=== PATIENT | female | born 1965 ===

== ENCOUNTER 2020-08-03 10:38 | Outpatient (REF) | payer OTHER, SELFPAY ==
--- NOTE | 2020-08-03 | US_ITS ---
EXAMINATION: US THYROID CLINICAL INFORMATION: Goiter. COMPARISON: Chest CT and cervical spine CT March 2020. TECHNIQUE: Linear transducer grayscale and color Doppler examination with attention to the region of the thyroid. FINDINGS: SIZE: Measurements of the solitary left thyroid lobe and nodules are given in sagittal, anteroposterior and transverse dimensions respectively. Right Thyroid Lobe: Surgically absent. Left Thyroid Lobe: 4.4 x 1.7 x 1.6 cm, volume 6.4 mL. Parenchyma: The gland echotexture is heterogeneous. Thyroid vascularity is normal. Isthmus: 0.4 cm in maximum AP dimension. RIGHT THYROID LOBE: No nodules. ISTHMUS: No nodules. LEFT THYROID LOBE: No nodules. NODES: No lymphadenopathy is seen in the tissue surrounding the thyroid gland. IMPRESSION: Surgically absent right lobe. Normal left lobe. No nodules seen..
== END 2020-08-03 10:39 | disposition home or self-care (01) ==
LOC: HO.HMGCX 10:38
PROVIDERS: PCP Physician Assistant; Visit Provider Nurse Practitioner Gerontology
DX: E04.9 Nontoxic goiter, unspecified (principal)
CPT/HCPCS: 76536

== ENCOUNTER → 2020-08-19 12:11 | Outpatient (BNVA) | payer OTHER, SELFPAY | PROVIDERS: PCP Physician Assistant; Visit Provider Internal Medicine Gastroenterology | DX: R10.13 Epigastric pain (principal); K22.2 Esophageal obstruction; A49.8 Other bacterial infections of unspecified site | CPT/HCPCS: 99213 ==

== ENCOUNTER 2020-08-29 10:27 | Outpatient (REF) | payer OTHER, SELFPAY ==
[2020-08-29 11:58] LABS: MANUAL DIFF FLAG NO
[2020-08-29 12:11] LABS: Basophils Absolute Auto 0.1 X10*3/uL (0.0-0.2); Basophils Percent Auto 1.1 % (0-2); Eosinophils Absolute Auto 0.2 X10*3/uL (0.0-0.4); Eosinophils Percent Auto 4.1 % (0-4); Hematocrit 40.8 % (37-47); Hemoglobin 13.3 g/dl (12.0-16.0); Imm Gran Abs Auto 0.02 X10*3/uL (0.00-0.03); Imm Gran Pct Auto 0.4 % (0.0-0.4); Lymphocytes Absolute Auto 2.1 X10*3/uL (1.2-4.9); Lymphocytes Percent Auto 38.7 % (20-40); Mean Corpuscular HGB Conc 32.6 g/dl (31.0-35.0); Mean Corpuscular Hemoglobin 28.1 pg (27.0-33.0); Mean Corpuscular Volume 86.3 fL (80-98); Mean Platelet Volume 9.3 fL (9.4-12.3); Monocytes Absolute Auto 0.4 X10*3/uL (0.1-1.2); Monocytes Percent Auto 6.6 % (2-11); Neutrophils Absolute Auto 2.7 X10*3/uL (2.0-8.3); Neutrophils Percent Auto 49.1 % (45-73); Platelet Count 290 X10*3/uL (160-400); Red Blood Count 4.73 X10*6/uL (4.20-5.50); Red Cell Distribution Width 11.9 % (11.0-16.0); White Blood Count 5.4 X10*3/uL (4.8-10.8)
[2020-08-29 12:28] LABS: Estimated Average Glucose 131 mg/dL; Hemoglobin A1c % 6.2 %
[2020-08-29 12:43] LABS: Alanine Aminotransferase 36 U/L (0-31); Albumin Level 4.9 g/dL (3.5-5.0); Alkaline Phosphatase 46 U/L (39-117); Anion Gap 15 (12-20); Aspartate Amino Transferase 19 U/L (5-31); Bilirubin Total 0.5 mg/dL (0.0-1.0); Blood Urea Nitrogen 15 mg/dL (9-16); Calcium 9.1 mg/dL (8.4-10.2); Carbon Dioxide 27 mmol/L (22-29); Chloride 103 mmol/L (96-108); Cholesterol 166 mg/dL; Estimated Glomerular Filt Rate > 60; Glucose Fasting 97 mg/dL (60-99); HDL Cholesterol 59 mg/dL; LDL Cholesterol Calculated 74 mg/dl; Potassium 4.3 mmol/l (3.3-5.1); Sodium 141 mmol/L (135-145); Total Protein 7.6 g/dL (6.5-8.0); Triglycerides 165 mg/dL
[2020-08-29 12:53] LABS: HIV AB/AG Nonreactive (Nonreactive); HIV Num 1 0.09 S/CO (0.00-0.99)
[2020-08-29 12:58] LABS: Syphilis Screen Nonreactive (Nonreactive)
[2020-08-29 13:17] LABS: TSH reflex Free T4 0.89 mIU/mL (0.32-4.0)
[2020-09-01 18:17] LABS: Chlamydia Pneumoniae IgA <1:16 titer (<1:16); Chlamydia Pneumoniae IgG <1:64 titer (<1:64); Chlamydia Pneumoniae IgM <1:10 titer (<1:10); Chlamydia Psittaci IgA <1:16 titer (<1:16); Chlamydia Psittaci IgG <1:64 titer (<1:64); Chlamydia Psittaci IgM <1:10 titer (<1:10); Chlamydia Trachomatis IgA <1:16 titer (<1:16); Chlamydia Trachomatis IgG <1:64 titer (<1:64); Chlamydia Trachomatis IgM <1:10 titer (<1:10)
== END 2020-08-29 10:28 | disposition home or self-care (01) ==
LOC: HO.LAB 10:27
PROVIDERS: Absent Provider Nurse Practitioner Gerontology; PCP Physician Assistant; Visit Provider Physician Assistant
DX: E11.9 Type 2 diabetes mellitus without complications (principal); E78.2 Mixed hyperlipidemia; R31.0 Gross hematuria; Z79.4 Long term (current) use of insulin
CPT/HCPCS: 36415; 80053; 80061; 83036; 84443; 85025; 86631; 86632; 86780; 87389

== ENCOUNTER 2020-09-13 07:41 | Emergency (ER) | payer OTHER, SELFPAY ==
--- NOTE | 2020-09-13 07:49 | ED.ABDPAIN ---
HPI - Abdominal Pain General Chief Complaint: Abdominal Pain Stated Complaint: abd pain Time Seen by Provider: 09/13/20 07:49 Source: patient Mode of arrival: ambulatory Limitations: no limitations History of Present Illness HPI narrative: Patient recently diagnosed with kidney stones. Now with right sided pain MD elicited complaint: abdominal pain and flank pain Pertinent past history: other (renal colic) Onset (ago): month(s) Severity: moderate Quality: stabbing Radiation: RLQ and R flank Related Data Home Medications Medication Instructions Recorded Confirmed cholecalciferol (vitamin D3) 25 25 mcg PO DAILY 08/09/20 09/06/20 mcg (1,000 unit) capsule clonazepam 2 mg tablet mg PO 08/09/20 09/06/20 ondansetron HCl 4 mg tablet mg PO 08/09/20 09/06/20 pregabalin 100 mg capsule mg PO 08/09/20 09/06/20 tamsulosin 0.4 mg capsule 0.4 mg PO DAILY 08/09/20 09/06/20 zolpidem 12.5 mg tablet,extended 12.5 mg PO BEDTIME 08/09/20 09/06/20 release,multiphase citalopram 20 mg tablet 20 mg PO DAILY 08/19/20 09/06/20 empagliflozin 10 mg tablet 10 mg PO DAILY 09/06/20 09/06/20 Previous Rx's Medication Instructions Recorded atorvastatin 20 mg tablet 20 mg PO DAILY 90 Days #90 tab 07/29/20 fenofibrate nanocrystallized 48 mg 48 mg PO DAILY 90 Days #90 tab 07/29/20 tablet metformin 1,000 mg tablet 1,000 mg PO BID 90 Days #180 tab 07/29/20 omeprazole 20 mg capsule,delayed 20 mg PO DAILY 90 Days #90 cap 07/29/20 release telmisartan 20 mg tablet 20 mg PO DAILY 90 Days #90 tab 07/29/20 oxycodone-acetaminophen 5 mg-325 1 tab PO Q6H PRN #10 tab 09/05/20 mg tablet prednisone 20 mg tablet 20 mg PO .COMPLEX #18 tab 09/05/20 sulfamethoxazole 800 1 tab PO BID #3 tab 09/05/20 mg-trimethoprim 160 mg tablet insulin glargine 100 unit/mL (3 22 unit SUBCUT BEDTIME #12 ml 09/12/20 mL) subcutaneous pen naproxen [Naprosyn] 500 mg PO BID #20 tab 09/13/20 ondansetron HCl [Zofran] 4 mg PO Q8H PRN #10 tab 09/13/20 oxycodone-acetaminophen [Percocet] 1 tab PO Q6H PRN #10 tab 09/13/20 tamsulosin [Flomax] 0.4 mg PO DAILY #20 cap 09/13/20 Allergies Allergy/AdvReac Type Severity Reaction Status Date / Time seafood Allergy Unknown Unknown Verified 09/06/20 08:05 lisinopril AdvReac Unknown cough Verified 09/06/20 08:05 Review of Systems Constitutional: Reports no additional constitutional complaints Eyes: Reports no additional eye complaints Denies dizziness Cardiovascular: Reports no additional cardiovascular complaints Respiratory: Reports as per HPI Gastrointestinal: Reports no additional gastrointestinal complaints Genitourinary: Reports no additional female genitourinary complaints Musculoskeletal: Reports no additional musculoskeletal complaints Skin/Breast: Denies rash Reports system reviewed and no additional complaints, except as documented, Denies dizziness and Denies Sensory deficit (Neuro) Psychiatric: Denies anxiety Physical Exam Vital Signs: Vital Signs: Last Vital Signs Temp 98.8 F 09/13/20 07:52 Pulse 60 09/13/20 09:08 Resp 16 09/13/20 09:08 BP 115/59 L 09/13/20 09:08 Pulse Ox 98 09/13/20 07:52 Body Mass Index 72.5 Const: Other: obese female in obvious pain Nutritional Appearance: obese Orientation/consciousness: oriented to person and patient oriented x3 Limitations: no limitations HENMT: Head: Yes normal to inspection Ears: external ears normal General nose exam: Normal external nose present Mouth: Normal oral and palatal mucosa present and oropharynx normal Throat: Yes posterior oropharynx normal Eyes: General: appearance normal, both eyes and all related structures Neck: Other: supple Neck: Yes normal visual inspection Chest: Chest palpation & inspection: normal inspection of the chest Resp: Auscultation: clear to auscultation bilaterally Cardio: Jugular venous distension: no JVD Rate: regular rate Rhythm: regular rhythm Heart sounds: S1 normal heart sound present and S2 normal heart sound present GI: Inspection: Yes normal to inspection Palpation (GI): Soft to palpation, nontender and No hepatosplenomegaly present Auscultation: normal bowel sounds : Other: mild right CVAT Skin: General skin exam: no rashes or lesions noted Neuro: General: oriented to person and patient oriented x3 Cranial nerves: Yes CN's II-XII intact bilaterally Motor exam (neuro): 5/5 motor strength present throughout Sensory Exam: No Sensory deficit (Neuro) Extrem: General: Yes normal to inspection Psych: Appearance: grossly normal Course Course Course Narrative: Patient with two stones in the right ureter will dc home, she is more comfortable MDM - Abdominal Pain MDM Narrative Medical decision making narrative: Patient with stone at the right UVJ Differential Diagnosis Differential diagnosis: Likely calculus of kidney and renal colic Lab Data Result diagrams: 09/13/20 08:08 09/13/20 08:08 Labs: Lab Results 09/13/20 09/13/20 09/13/20 Range/Units 08:08 08:08 08:08 WBC 11.5 H (4.8-10.8) X10*3/uL RBC 4.43 (4.20-5.50) X10*6/uL Hgb 12.5 (12.0-16.0) g/dl Hct 38.3 (37-47) % MCV 86.5 (80-98) fL MCH 28.2 (27.0-33.0) pg MCHC 32.6 (31.0-35.0) g/dl RDW 12.8 (11.0-16.0) % Plt Count 249 (160-400) X10*3/uL MPV 8.8 L (9.4-12.3) fL Immature Gran % (Auto) 2.1 H (0.0-0.4) % Neut % (Auto) 49.9 (45-73) % Lymph % (Auto) 38.5 (20-40) % [place] % (Auto) 6.7 (2-11) % Eos % (Auto) 2.4 (0-4) % Baso % (Auto) 0.4 (0-2) % Lymph # (Auto) 4.4 (1.2-4.9) X10*3/uL [place] # (Auto) 0.8 (0.1-1.2) X10*3/uL Eos # (Auto) 0.3 (0.0-0.4) X10*3/uL Baso # (Auto) 0.1 (0.0-0.2) X10*3/uL Abs Immat Gran (auto) 0.24 H (0.00-0.03) X10*3/uL Absolute Neuts (auto) 5.7 (2.0-8.3) X10*3/uL Absolute Nucleated RBC 0.000 (0.0-0.012) X10*3/uL Nucleated RBC % (auto) 0.0 (0.0-0.2) /100WBC Sodium 138 (135-145) mmol/L Potassium 4.4 (3.3-5.1) mmol/l Chloride 101 (96-108) mmol/L Carbon Dioxide 26 (22-29) mmol/L Anion Gap 15 (12-20) BUN 23 H D (9-16) mg/dL Creatinine 0.94 (0.5-1.4) mg/dL Estim Creat Clear Calc 126.5 Estimated GFR > 60 Random Glucose 84 (60-115) mg/dL Calcium 9.3 (8.4-10.2) mg/dL Urine Color YELLOW Urine Appearance CLEAR Urine pH 5.5 (5.0-8.0) Ur Specific [place] 1.015 (1.005-1.025) Urine Protein NEG (NEG-TRACE) MG/DL Urine Glucose (UA) NEG (NEG) MG/DL Urine Ketones NEG (NEG) MG/DL Urine Blood 2+ H (NEG) Urine Nitrite NEG (NEG) Ur Leukocyte Esterase NEG (NEG) Urine RBC 1-4 (0) /HPF Urine WBC 0 (0-4) /HPF Ur Squamous Epith Cells TRACE /LPF Calcium Oxalate Crystal 2+ /LPF Urine Bacteria NONE /LPF Discharge Plan Discharge Clinical Impression: Renal colic Patient Disposition: Home, Self-Care Instructions: Renal Colic (ED) Prescriptions: New ondansetron HCl [Zofran] 4 mg tablet 4 mg PO Q8H PRN (Reason: nausea and vomiting) Qty: 10 RF: 0 naproxen [Naprosyn] 500 mg tablet 500 mg PO BID Qty: 20 RF: 0 tamsulosin [Flomax] 0.4 mg capsule 0.4 mg PO DAILY Qty: 20 RF: 0 oxycodone-acetaminophen [Percocet] 5-325 mg tablet 1 tab PO Q6H PRN (Reason: pain) Qty: 10 RF: 0 No Action telmisartan 20 mg tablet 20 mg PO DAILY 90 Days Qty: 90 RF: 1 omeprazole 20 mg capsule,delayed release(DR/EC) 20 mg PO DAILY 90 Days Qty: 90 RF: 1 fenofibrate nanocrystallized 48 mg tablet 48 mg PO DAILY 90 Days Qty: 90 RF: 1 atorvastatin 20 mg tablet 20 mg PO DAILY 90 Days Qty: 90 RF: 1 metformin 1,000 mg tablet 1,000 mg PO BID 90 Days Qty: 180 RF: 1 insulin glargine [Basaglar KwikPen U-100 Insulin] 100 unit/mL (3 mL) insulin pen 22 unit subcut BEDTIME Qty: 12 RF: 3 Jardiance 10 mg tablet 10 mg PO DAILY RF: 0 clonazepam 2 mg tablet PO RF: 0 tamsulosin 0.4 mg capsule 0.4 mg PO DAILY RF: 0 zolpidem 12.5 mg tablet,ext release multiphase 12.5 mg PO BEDTIME RF: 0 pregabalin 100 mg capsule PO RF: 0 cholecalciferol (vitamin D3) 25 mcg (1,000 unit) capsule 25 mcg PO DAILY RF: 0 ondansetron HCl 4 mg tablet PO RF: 0 prednisone 20 mg tablet 20 mg PO .COMPLEX Qty: 18 RF: 0 sulfamethoxazole-trimethoprim [Bactrim DS] 800-160 mg tablet 1 tab PO BID Qty: 3 RF: 0 oxycodone-acetaminophen [Percocet] 5-325 mg tablet 1 tab PO Q6H PRN (Reason: pain) Qty: 10 RF: 0 citalopram 20 mg tablet 20 mg PO DAILY RF: 0 PMFSH Past Medical History Medical History Anxiety Arthritis Asthma Back pain Depression Epigastric pain Fibromyalgia HLD (hyperlipidemia) HTN (hypertension) Hx of thyroid nodule Recurrent Clostridioides difficile infection Schatzki's ring Type 2 diabetes mellitus Surgical History H/O hemorrhoidectomy H/O partial thyroidectomy (~2016) History of abdominoplasty History of bilateral breast reduction surgery (~2008) History of colonoscopy History of hysterectomy History of laparoscopic adjustable gastric banding (~2010) History of removal of laparoscopic gastric banding device (~2015) Hx laparoscopic cholecystectomy S/P anal fissurectomy S/P left oophorectomy Family History Family History Father Diabetes Hypertension Depression Mother Lung cancer Brother HIV (human immunodeficiency virus infection) Depression Sister Hypertension Social History Social History Alcohol intake: never Smoking Status: Never smoker Advance Directives: Yes Advance Directives Information Provided: Yes Advance Directives on File: No
[2020-09-13 07:52] VITALS: BP 143/77; PULSE 64; RESP 18; TEMP 37.1; O2SAT 98; BMI 72.5
--- NOTE | 2020-09-13 07:52 | CT_ITS ---
EXAMINATION: CT ABDOMEN AND PELVIS WITHOUT CONTRAST CLINICAL INFORMATION: Right flank pain. History of kidney stones. COMPARISON: Right flank pain. History of kidney stones. TECHNIQUE: Multidetector volumetric imaging was performed from the superior aspect of the liver through the pubic symphysis. Sagittal and coronal reformatted images were obtained on the technologist's workstation. This CT examination was performed using dose optimization techniques as appropriate, variously including the following: *Automated exposure control *Adjustment of mA and/or kV according to patient size (this includes techniques or standardized protocols for targeted exams where dose is matched to indication/reason for exam; i.e. extremities or head) *Use of iterative reconstruction technique DLP: 710 mGy-cm FINDINGS: LUNG BASES: There is minimal bibasilar atelectasis. The visualized cardiac structures are unremarkable. LIVER, GALLBLADDER, AND BILIARY TREE: The liver is enlarged measuring 21 cm in CC dimension. Low attenuation of the liver. Liver has a normal shape. No focal hepatic lesion or biliary ductal dilatation is present. Cholecystectomy. PANCREAS: Unremarkable. SPLEEN: Normal size. Multiple calcified granulomata throughout. ADRENAL GLANDS: Unremarkable. KIDNEYS AND URETERS: The kidneys are normal in size, shape, and attenuation. Mild right hydroureteronephrosis. There is a 0.5 cm calculus at the right ureterovesicular junction with a more proximal adjacent smaller stone. No additional calculi are seen in either kidney. BLADDER: Decompressed with no gross abnormality. GASTROINTESTINAL TRACT: The stomach is unremarkable. Normal caliber small bowel. There is no obstruction. No colonic wall thickening or inflammatory changes. No free air or free fluid. Normal appendix. ABDOMINAL WALL: No significant hernia is appreciated. LYMPH NODES: Normal. VASCULAR: Unremarkable. PELVIC VISCERA: Uterus is not seen. No adnexal mass. OSSEOUS STRUCTURES: No acute or suspicious osseous abnormality. Degenerative changes noted in the spine. CT/CT abdomen pelvis wo con IMPRESSION: Mild right hydroureteronephrosis. 0.5 cm calculus at the right ureterovesicular junction. Hepatomegaly with hepatic steatosis.
[2020-09-13] MEDS: Ketorolac Tromethamine 30 MG/ML VIAL IVPUSH (08:14)
[2020-09-13] MEDS: 0.9 % Sodium Chloride 500 ML 999 ML IVCONT (08:14)
[2020-09-13 08:16] LABS: Basophils Absolute Auto 0.1 X10*3/uL (0.0-0.2); Basophils Percent Auto 0.4 % (0-2); Eosinophils Absolute Auto 0.3 X10*3/uL (0.0-0.4); Eosinophils Percent Auto 2.4 % (0-4); Hematocrit 38.3 % (37-47); Hemoglobin 12.5 g/dl (12.0-16.0); Imm Gran Abs Auto 0.24 X10*3/uL (0.00-0.03); Imm Gran Pct Auto 2.1 % (0.0-0.4); Lymphocytes Absolute Auto 4.4 X10*3/uL (1.2-4.9); Lymphocytes Percent Auto 38.5 % (20-40); MANUAL DIFF FLAG NO; Mean Corpuscular HGB Conc 32.6 g/dl (31.0-35.0); Mean Corpuscular Hemoglobin 28.2 pg (27.0-33.0); Mean Corpuscular Volume 86.5 fL (80-98); Mean Platelet Volume 8.8 fL (9.4-12.3); Monocytes Absolute Auto 0.8 X10*3/uL (0.1-1.2); Monocytes Percent Auto 6.7 % (2-11); Neutrophils Absolute Auto 5.7 X10*3/uL (2.0-8.3); Neutrophils Percent Auto 49.9 % (45-73); Platelet Count 249 X10*3/uL (160-400); Red Blood Count 4.43 X10*6/uL (4.20-5.50); Red Cell Distribution Width 12.8 % (11.0-16.0); White Blood Count 11.5 X10*3/uL (4.8-10.8)
--- NOTE | 2020-09-13 08:16 | PC.NURSE ---
SEEN BY ATTENDING. IV EST 20 G L HAND. BLOOD AND URINE COLLECTED AND SENT TO LAB. IVF AND TORADOL PER ORDERS. PT AWAITING CT
[2020-09-13 08:17] LABS: Glucose Urine UA NEG (NEG); Leukocyte Esterase Urine NEG (NEG); Nitrite Urine NEG (NEG); PH 5.5 (5.0-8.0); Specific Gravity - Urine 1.015 (1.005-1.025); Urine Blood 2+ (NEG); Urine Ketones NEG (NEG); Urine Protein NEG (NEG-TRACE)
[2020-09-13 08:21] LABS: Appearance Urine CLEAR; Color Urine YELLOW
[2020-09-13 08:41] LABS: Calcium Oxalate Crystals Urine 2+ /LPF; Squamous Epithelial Cell Urine TRACE /LPF; WBC Urine 0 /HPF (0-4)
[2020-09-13 08:45] LABS: Anion Gap 15 (12-20); Blood Urea Nitrogen 23 mg/dL (9-16); Calcium 9.3 mg/dL (8.4-10.2); Carbon Dioxide 26 mmol/L (22-29); Chloride 101 mmol/L (96-108); Creatinine Clr Calc Pharmacy 126.5; Estimated Glomerular Filt Rate > 60; Glucose Random 84 mg/dL (60-115); Potassium 4.4 mmol/l (3.3-5.1); Sodium 138 mmol/L (135-145)
[2020-09-13 09:08] VITALS: BP 115/59; PULSE 60; RESP 16
== END 2020-09-13 10:33 | disposition home or self-care (01) ==
PROVIDERS: Emergency Provider Emergency Medicine; PCP Physician Assistant
DX: N23 Unspecified renal colic (principal); Z79.899 Other long term (current) drug therapy
CPT/HCPCS: 36415; 74176; 80048; 81001; 85025; 96374; 99212; 99283; 99284; J1885

== ENCOUNTER 2020-09-15 11:49 | Day surgery (SDC) | payer OTHER, SELFPAY ==
[2020-09-14 13:28] VITALS: BMI 33.0
--- NOTE | 2020-09-14 14:00 | HO.ANESPROP2 ---
Documented by User: Nikole Vanesa 09/14/20 14:07 HPI - Anesthesia Eval Consult details Narrative: 55yo F for Cysto, etc PMFSH Past Medical History Medical History Anxiety Arthritis Asthma Back pain Depression Epigastric pain Fibromyalgia GERD (gastroesophageal reflux disease) HLD (hyperlipidemia) HTN (hypertension) Hx of thyroid nodule Nephrolithiasis Recurrent Clostridioides difficile infection Schatzki's ring Type 2 diabetes mellitus Family History Family History Father Diabetes Hypertension Depression Mother Lung cancer Brother HIV (human immunodeficiency virus infection) Depression Sister Hypertension Surgical History Surgical History H/O hemorrhoidectomy H/O partial thyroidectomy (~2016) History of abdominoplasty History of bilateral breast reduction surgery (~2008) History of colonoscopy History of hysterectomy History of laparoscopic adjustable gastric banding (~2010) History of removal of laparoscopic gastric banding device (~2015) Hx laparoscopic cholecystectomy S/P anal fissurectomy S/P left oophorectomy Social History Social History Alcohol intake: never Smoking Status: Never smoker Second Hand Smoke Exposure: No Use of substances other than those prescribed or required for medical reasons: No Advance Directives: No Advance Directives Information Provided: No Advance Directives on File: No Meds Allergies Allergy/AdvReac Type Severity Reaction Status Date / Time seafood Allergy Unknown Unknown Verified 09/06/20 08:05 lisinopril AdvReac Unknown cough Verified 09/06/20 08:05 Home Medications Medication Instructions Recorded Confirmed Type cholecalciferol (vitamin D3) 25 25 mcg PO DAILY 08/09/20 09/06/20 History mcg (1,000 unit) capsule clonazepam 2 mg tablet mg PO 08/09/20 09/06/20 History ondansetron HCl 4 mg tablet mg PO 08/09/20 09/06/20 History pregabalin 100 mg capsule mg PO 08/09/20 09/06/20 History tamsulosin 0.4 mg capsule 0.4 mg PO DAILY 08/09/20 09/06/20 History zolpidem 12.5 mg tablet,extended 12.5 mg PO BEDTIME 08/09/20 09/06/20 History release,multiphase citalopram 20 mg tablet 20 mg PO DAILY 08/19/20 09/06/20 History empagliflozin 10 mg tablet 10 mg PO DAILY 09/06/20 09/06/20 History Exam Exam Date and Time: September 14, 2020 1400 Height,Weight and Vital Signs: Height 5 ft 6 in Weight 92.986 kg Pertinent Lab Results Pertinent Lab Results: Laboratory Tests 09/13/20 09/13/20 08:08 08:08 WBC 11.5 H Hgb 12.5 Hct 38.3 Plt Count 249 Sodium 138 Potassium 4.4 Chloride 101 Carbon Dioxide 26 BUN 23 H D Creatinine 0.94 Assessment and Plan Assessment Anesthesia Assessment: Chart Reviewed Documented by User: Anup June MD 09/15/20 12:55 PMFSH Past Medical History Medical History Anxiety Arthritis Asthma Back pain Depression Epigastric pain Fibromyalgia GERD (gastroesophageal reflux disease) HLD (hyperlipidemia) HTN (hypertension) Hx of thyroid nodule Nephrolithiasis Recurrent Clostridioides difficile infection Schatzki's ring Type 2 diabetes mellitus Family History Family History Father Diabetes Hypertension Depression Mother Lung cancer Brother HIV (human immunodeficiency virus infection) Depression Sister Hypertension Surgical History Surgical History H/O hemorrhoidectomy H/O partial thyroidectomy (~2016) History of abdominoplasty History of bilateral breast reduction surgery (~2008) History of colonoscopy History of hysterectomy History of laparoscopic adjustable gastric banding (~2010) History of removal of laparoscopic gastric banding device (~2015) Hx laparoscopic cholecystectomy S/P anal fissurectomy S/P left oophorectomy Social History Social History Alcohol intake: never Smoking Status: Never smoker Second Hand Smoke Exposure: No Use of substances other than those prescribed or required for medical reasons: No Advance Directives: No Advance Directives Information Provided: No Advance Directives on File: No Meds Allergies Allergy/AdvReac Type Severity Reaction Status Date / Time seafood Allergy Unknown Unknown Verified 09/06/20 08:05 lisinopril AdvReac Unknown cough Verified 09/06/20 08:05 Home Medications Medication Instructions Recorded Confirmed Type cholecalciferol (vitamin D3) 25 25 mcg PO DAILY 08/09/20 09/06/20 History mcg (1,000 unit) capsule clonazepam 2 mg tablet mg PO 08/09/20 09/06/20 History ondansetron HCl 4 mg tablet mg PO 08/09/20 09/06/20 History pregabalin 100 mg capsule mg PO 08/09/20 09/06/20 History tamsulosin 0.4 mg capsule 0.4 mg PO DAILY 08/09/20 09/06/20 History zolpidem 12.5 mg tablet,extended 12.5 mg PO BEDTIME 08/09/20 09/06/20 History release,multiphase citalopram 20 mg tablet 20 mg PO DAILY 08/19/20 09/06/20 History empagliflozin 10 mg tablet 10 mg PO DAILY 09/06/20 09/06/20 History Exam Airway Mallampati Class: III TM Dist: >3cm Neck ROM: Full Loose/Missing/Broken Teeth: No Heart: rrr Lungs: nl Other: ao Assessment and Plan Assessment Anesthesia Assessment: Anesthesia Plan Discussed and Chart Reviewed Final Anesthetic Review NPO: Yes ASA Class: III Final Preanesthetic Review: No Changes in Pt Med Stat, Meds/Allgs Chart Reviewed, Consent Obtained/Reviewed and Anes Risks/Benef Reviewed Patient Risk: Intermediate Procedure Risk: Low Anesthetic Plan Anesthetic Plan: GA Disposition: Standard PACU
--- NOTE | 2020-09-15 10:50 | FL_ITS ---
EXAMINATION: XR FLUOROSCOPY WITH IMAGES CLINICAL INFORMATION: Cystoscopy, ureteroscopy. Retrograde. Laser. COMPARISON: CT 09/13/2020 TECHNIQUE: Fluoroscopy performed by Dr. Ad Roberts. Fluoroscopy time: 31.5 seconds Images: 4 FINDINGS: A wire is placed into the right ureter. There is contrast injected. Distal ureteral filling defect noted. A right ureteral stent is placed on the final images. FL/FL guidance in OR IMPRESSION: Fluoroscopic guidance for right-sided pyelogram and stent placement. Please refer to procedural report for further information.
[2020-09-15 12:03] LABS: Glucose, Whole Blood 78 mg/dL (60-115)
[2020-09-15 12:05] VITALS: BP 121/69; PULSE 66; RESP 18; TEMP 36.7; O2SAT 95
[2020-09-15] MEDS: Lactated Ringers 1,000 ML 100 ML IVCONT (12:17)
[2020-09-15] MEDS: levoFLOXacin 500 MG TABLET PO (12:19)
--- NOTE | 2020-09-15 12:25 | PC.NURSE ---
ling spoke to md toney and told him she drank pepsi at 11am because she was feeling hypoglycemic. patient stated she called hospital and thats what they suggested.
[2020-09-15] MEDS: Dextrose 5 % 1,000 ML 500 ML IV (12:28)
--- NOTE | 2020-09-15 12:32 | PC.NURSE ---
patient states her blood sugar is 60 per her poc monitoring system. ours stated 78 and she stated it was starting to drop per her monitor. her monitor stated 61. asymptomatic. hung d5 250ml .
--- NOTE | 2020-09-15 12:54 | MHC.SHP ---
Pre-Procedural Eval Section A The patient is an INPATIENT: No Changes since office visit: No Cold of Flu in the past 2 weeks, No New Medical Problems, No Changes in Medication and No Patient answered all questions The History & Physical has been completed within 30 days and I have reviewed it.: Yes Section B Chief Complaint: calculus kidney Allergies: Allergies Allergy/AdvReac Type Severity Reaction Status Date / Time seafood Allergy Unknown Unknown Verified 09/06/20 08:05 lisinopril AdvReac Unknown cough Verified 09/06/20 08:05 Plan Patient has been examined and remains a candidate for the planned procedure
[2020-09-15 13:19] LABS: Glucose, Whole Blood 101 mg/dL (60-115)
[2020-09-15 13:52] VITALS: BP 126/65; PULSE 62; RESP 16; TEMP 36.4; O2SAT 99
[2020-09-15 13:56] VITALS: BP 128/82; PULSE 59; RESP 18; O2SAT 100
[2020-09-15 14:01] VITALS: BP 129/77; PULSE 63; RESP 18; O2SAT 96
[2020-09-15] MEDS: Acetaminophen 325 MG TABLET 650 MG PO (14:01)
[2020-09-15] MEDS: Phenazopyridine HCL 100 MG TABLET PO (14:02)
[2020-09-15 14:06] VITALS: BP 121/61; PULSE 64; RESP 18; O2SAT 95
--- NOTE | 2020-09-15 14:08 | P.BOP_ITS ---
Brief Operative Note Date of Service: 09/15/20 Pre-op diagnosis: Distal right ureteric stone Post-op diagnosis: same Procedure: 1. Cystoscopy right retrograde 2. Dilatation right ureteric orifice under fluoroscopy 3. Right ureteroscopy 4. Right stent placement Implants: Right ureteric stent 6 [place] by 22 cm double-J ureteric stent Surgeon: Ad Roberts MD Anesthesia: GLMA Estimated blood loss (mL): 0 Pathology: other (Pathology) Condition: stable Disposition: no change
[2020-09-15] MEDS: traMADoL HCL 50 MG TABLET PO (14:12)
--- NOTE | 2020-09-15 14:26 | W.PM.OPN ---
Operative Note Operative Note Date of Service: 09/15/20 Narrative: PreOperative Diagnosis: Right distal ureteric stone Post Operative Diagnosis: Right distal ureteric stone Procedure: - cystoscopy, retrograde - dilatation of ureteric orifice under fluoroscopy - ureteroscopy - stent placement Surgeon: Dr Ad Roberts Anesthesia: General Indications for procedure: This is a 55-year-old female. Recurrent stone former. Imaging with distal right ureteric stone 4 mm and mild right ureteric hydroureteronephrosis. Had trial of medical expulsion therapy. This is failed in is now proceeding to intervention with ureteroscopy. Procedure: After informed consent was verified patient was brought to the operating placed in supine position. Anesthesia was administered per protocol. Patient was placed in modified dorsal lithotomy position and prepped and draped in a sterile fashion. Safety pause time-out and side of surgery confirmed. Antibiotics confirmed. Twenty-one [place] cystoscope inserted per urethra. No abnormality noted of the urethra. On entry to the bladder with clear that the right ureteric orifice was inflamed and the stone was . A sensor guidewire was placed. Retrograde examination performed showing mild ureteral hydro nephrosis. Dilatation was performed under fluoroscopy. A rigid ureteroscope was placed. Stone was seen proximally 0.5 cm from the ureteric orifice. At broke as we went past it and fragments were then injected into the bladder. We placed urea scope up to midportion of the middle ureter. There were no other stone fragments seen. A sensor guidewire was then placed again. The rigid scope was removed. A 6 [place] by 22 cm double-J ureteric stent was placed without difficulty She tolerated procedure well was extubated in operating room transferred in stable condition to recovery Pathology: Stone fragment Drains: 6 [place] by 22 cm stent double-J
[2020-09-15 14:45] VITALS: BP 127/82; PULSE 67; RESP 18; TEMP 36.6; O2SAT 99
[2020-09-20 15:07] LABS: Stone Source KIDNEY STONE
== END 2020-09-15 15:11 | disposition home or self-care (01) ==
PROVIDERS: PCP Physician Assistant; Visit Provider Urology
PROC: (CPT 52351; principal; 2020-09-15 13:30)
DX: N13.2 Hydronephrosis with renal and ureteral calculous obstruction (principal); Z87.442 Personal history of urinary calculi; I10 Essential (primary) hypertension; J45.909 Unspecified asthma, uncomplicated; E11.9 Type 2 diabetes mellitus without complications; Z98.84 Bariatric surgery status; Z90.49 Acquired absence of other specified parts of digestive tract; Z79.899 Other long term (current) drug therapy; Z88.8 Allergy status to other drugs, medicaments and biological substances
CPT/HCPCS: 52351; 52332; 82365; 82947; 88300; C1769; C1894; C2617; J1100; J1885; J2250; J2405; J3010; Q9967

== ENCOUNTER → 2020-09-21 08:46 | Outpatient (BNVA) | payer OTHER, SELFPAY | PROVIDERS: PCP Physician Assistant; Referring Provider Physician Assistant; Visit Provider Urology | DX: N20.0 Calculus of kidney (principal); E11.9 Type 2 diabetes mellitus without complications; Z46.6 Encounter for fitting and adjustment of urinary device; Z79.899 Other long term (current) drug therapy; Z79.84 Long term (current) use of oral hypoglycemic drugs; Z79.891 Long term (current) use of opiate analgesic | CPT/HCPCS: 52000; 52310; 99212 ==

== ENCOUNTER 2020-10-12 11:36 | Outpatient (REF) | payer OTHER, SELFPAY ==
[2020-10-12 13:25] LABS: Alanine Aminotransferase 32 U/L (0-31); Albumin Level 4.9 g/dL (3.5-5.0); Alkaline Phosphatase 44 U/L (39-117); Anion Gap 14 (12-20); Aspartate Amino Transferase 18 U/L (5-31); Bilirubin Total 0.7 mg/dL (0.0-1.0); Blood Urea Nitrogen 21 mg/dL (9-16); Calcium 9.4 mg/dL (8.4-10.2); Carbon Dioxide 27 mmol/L (22-29); Chloride 101 mmol/L (96-108); Estimated Glomerular Filt Rate > 60; Glucose Fasting 109 mg/dL (60-99); Potassium 4.2 mmol/l (3.3-5.1); Sodium 138 mmol/L (135-145); Total Protein 7.7 g/dL (6.5-8.0)
[2020-10-12 13:47] LABS: TSH reflex Free T4 0.85 mIU/mL (0.32-4.0)
[2020-10-12 14:04] LABS: Syphilis Screen Nonreactive (Nonreactive)
[2020-10-13 04:08] LABS: HIV AB/AG Nonreactive (Nonreactive); HIV Num 1 0.08 S/CO (0.00-0.99)
== END 2020-10-12 11:37 | disposition home or self-care (01) ==
LOC: HO.LAB 11:36
PROVIDERS: PCP Physician Assistant; Visit Provider Physician Assistant
DX: E11.9 Type 2 diabetes mellitus without complications (principal); Z79.4 Long term (current) use of insulin; Z11.4 Encounter for screening for human immunodeficiency virus [HIV]; Z11.3 Encounter for screening for infections with a predominantly sexual mode of transmission
CPT/HCPCS: 80053; 84443; 86780; 87086; 87389

== ENCOUNTER → 2020-10-24 10:29 | Outpatient (BNVA) | payer OTHER, SELFPAY | PROVIDERS: PCP Physician Assistant; Referring Provider Physician Assistant; Visit Provider Nurse Practitioner Gerontology | DX: Z13.89 Encounter for screening for other disorder (principal) | CPT/HCPCS: 99212 ==

== ENCOUNTER → 2020-10-27 13:40 | Outpatient (BNVA) | payer OTHER, SELFPAY | PROVIDERS: PCP Physician Assistant; Visit Provider Internal Medicine Gastroenterology | DX: Z76.89 Persons encountering health services in other specified circumstances (principal) ==

== ENCOUNTER → 2020-11-03 13:35 | Outpatient (BNVA) | payer OTHER, SELFPAY | PROVIDERS: PCP Physician Assistant; Visit Provider Anesthesiology | DX: M79.7 Fibromyalgia (principal); M54.5 Low back pain; M47.816 Spondylosis without myelopathy or radiculopathy, lumbar region | CPT/HCPCS: 99212 ==

== ENCOUNTER 2020-11-07 10:34 | Outpatient (REF) | payer OTHER, SELFPAY ==
--- NOTE | 2020-11-07 10:38 | XR_ITS ---
EXAMINATION: XR BILATERAL HIPS WITH AP PELVIS CLINICAL INFORMATION: Segmental and somatic dysfunction of the sacral region. COMPARISON: CT abdomen/pelvis dated 09/13/2020. TECHNIQUE: AP view the pelvis as well as AP and frog-leg lateral views of the right and left hip. FINDINGS: No acute fracture or dislocation. No significant joint space narrowing or marginal osteophytes. No osseous erosion. Phleboliths within the pelvis, unchanged. XR/XR hip BI w PEL1V IMPRESSION: Unremarkable examination.
--- NOTE | 2020-11-07 10:38 | US_ITS ---
EXAMINATION: US RETROPERITONEAL LIMITED (RENAL ONLY) CLINICAL INFORMATION: Calculus of kidney. COMPARISON: CT abdomen and pelvis 09/13/2020, previous ultrasounds most recent July 2018 and [facility] August 2019 TECHNIQUE: Real-time imaging of the kidneys. Technically difficult study secondary to body habitus. FINDINGS: RIGHT KIDNEY: 11.7 x 4.5 x 4.4 cm (SAG x AP x TRV). The kidney is normal in size, contour, and echogenicity. Renal cortical thickness is normal. No calculi or focal parenchymal lesions. No hydronephrosis. LEFT KIDNEY: 12.8 x 5.3 x 5.2 cm (SAG x AP x TRV). The kidney is normal in size, contour, and echogenicity. Renal cortical thickness is normal. No calculi or focal parenchymal lesions. No hydronephrosis. US/US renal BI IMPRESSION: Normal renal ultrasound. No stone seen.
== END 2020-11-07 10:35 | disposition home or self-care (01) ==
LOC: HO.US 10:34
PROVIDERS: Visit Provider Urology
DX: N20.0 Calculus of kidney (principal)
CPT/HCPCS: 73521; 76775

== ENCOUNTER → 2020-11-22 09:24 | Outpatient (BNVA) | payer OTHER, SELFPAY | PROVIDERS: PCP Physician Assistant; Visit Provider Urology ==

== ENCOUNTER 2020-11-22 13:56 | Outpatient (REF) | payer OTHER, SELFPAY | END 2020-11-22 13:57 | disposition home or self-care (01) | LOC: HO.LAB 13:56 | PROVIDERS: PCP Physician Assistant; Visit Provider Internal Medicine | DX: Z20.822 Contact with and (suspected) exposure to COVID-19 (principal) | CPT/HCPCS: 36415; C9803; U0003 ==

== ENCOUNTER 2020-11-23 15:57 | Outpatient (REF) | payer OTHER, SELFPAY ==
--- NOTE | 2020-11-23 16:02 | XR_ITS ---
EXAMINATION: XR LUMBOSACRAL SPINE CLINICAL INFORMATION: Low back pain. COMPARISON: Lumbar spine x-ray 06/26/2013 TECHNIQUE: Three views of the lumbosacral spine. FINDINGS: There is normal lumbar lordosis. The vertebral heights and alignment is normal. There is mild loss of L4-L5 and L5-S1 disc heights with mild ventral spondylosis. Rest of the disc heights are normal. No lytic or sclerotic process seen. XR/XR lumbar spine 2-3V IMPRESSION: Mild degenerative disc changes L4-L5 and L5-S1 disc levels. No visible acute fracture or dislocation seen. There is no lytic process.
== END 2020-11-23 15:58 | disposition home or self-care (01) ==
LOC: HO.HMGCX 15:57
PROVIDERS: PCP Physician Assistant; Visit Provider Nurse Practitioner Family
DX: M54.5 Low back pain (principal)
CPT/HCPCS: 72100

== ENCOUNTER → 2020-12-13 13:24 | Outpatient (BNVA) | payer OTHER, SELFPAY | PROVIDERS: PCP Physician Assistant; Visit Provider Internal Medicine Gastroenterology | DX: R10.13 Epigastric pain (principal); K22.2 Esophageal obstruction; Z12.11 Encounter for screening for malignant neoplasm of colon | CPT/HCPCS: 99212 ==

== ENCOUNTER 2020-12-16 08:47 | Day surgery (SDC) | payer OTHER, SELFPAY ==
--- NOTE | 2020-12-15 10:56 | P.CONAN_ITS ---
Documented by User: Nikole Alexis 12/15/20 10:58 HPI - Anesthesia Eval Consult details Narrative: 55yo F for Upper Endoscopy with Balloon Dilitation PMFSH Active Problems Active Problems: All Active Problems (Updated 12/13/20 @ 13:30 by Shabnam Hitchcock MD) Schatzki's ring (Acute) Epigastric pain (Acute) Migraines (Acute) Lumbar radiculopathy (Acute) Sciatica associated with disorder of lumbar spine (Acute) Flu-like symptoms (Acute) Spondylosis of lumbar spine (Acute) Low back pain (Acute) Fibromyalgia (Acute) Type 2 diabetes mellitus (Acute) Dyslipidemia (Acute) HTN (hypertension) (Acute) Obesity, Class I, BMI 30-34.9 (Acute) Annual physical exam (Acute) Screening for STD (sexually transmitted disease) (Acute) Screening for HIV (human immunodeficiency virus) (Acute) UTI (urinary tract infection) (Acute) Somatic dysfunction of right sacroiliac joint (Acute) Colon cancer screening (Acute) Recurrent Clostridioides difficile infection (Acute) Schatzki's ring (Acute) Epigastric pain (Acute) HLD (hyperlipidemia) (Acute) Renal colic (Acute) Hematuria (Acute) Nephrolithiasis (Acute) Past Medical History Medical History Anxiety Arthritis Asthma Back pain Depression Dyslipidemia Fibromyalgia Fibromyalgia Flu-like symptoms GERD (gastroesophageal reflux disease) HLD (hyperlipidemia) HTN (hypertension) Hx of thyroid nodule Low back pain Nephrolithiasis Obesity, Class I, BMI 30-34.9 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 Type 2 diabetes mellitus Family History Family History Father Diabetes Hypertension Depression Mother Lung cancer Diabetes Brother HIV (human immunodeficiency virus infection) Depression Diabetes Sister Hypertension Diabetes Surgical History Surgical History H/O hemorrhoidectomy H/O partial thyroidectomy (~2016) History of abdominoplasty History of bilateral breast reduction surgery (~2008) History of colonoscopy History of hysterectomy History of laparoscopic adjustable gastric banding (~2010) History of removal of laparoscopic gastric banding device (~2015) Hx laparoscopic cholecystectomy Hx of colonoscopy (~11/2016) S/P anal fissurectomy S/P left oophorectomy Social History Social History (Updated 12/13/20 @ 13:44 by Sendy Cheng Katty) Alcohol intake: current Alcohol intake frequency: holidays/special occasions only Smoking Status: Never smoker Second Hand Smoke Exposure: No Use of substances other than those prescribed or required for medical reasons: No Have you been hit, kicked, punched, or otherwise hurt by someone within the past year? If so, by whom?: No Advance Directives: No Advance Directives Information Provided: No Meds Allergies Allergy/AdvReac Type Severity Reaction Status Date / Time seafood Allergy Unknown Unknown Verified 12/13/20 13:39 lisinopril AdvReac Unknown cough Verified 12/13/20 13:39 Home Medications Medication Instructions Recorded Confirmed Last Taken Type zolpidem 12.5 mg tablet,extended 12.5 mg PO BEDTIME 08/09/20 12/13/20 Unknown History release,multiphase citalopram 20 mg tablet 20 mg PO DAILY 08/19/20 12/13/20 Unknown History clonazepam 2 mg tablet 2 mg PO tab 10/24/20 12/13/20 Unknown History pregabalin 100 mg capsule 100 mg PO BID cap 10/24/20 12/13/20 Unknown History escitalopram oxalate 20 mg tablet 20 mg PO DAILY 11/24/20 12/13/20 Unknown History sucralfate 1 gram tablet PO 11/24/20 12/13/20 Unknown History clonazepam 1 mg tablet 1 mg PO BID PRN tab 12/13/20 12/13/20 Unknown History Exam Exam Date and Time: December 15, 2020 1056 Pertinent Lab Results Pertinent Lab Results: Laboratory Tests 09/13/20 10/12/20 08:08 12:23 WBC 11.5 H Hgb 12.5 Hct 38.3 Plt Count 249 Sodium 138 Potassium 4.2 Chloride 101 Carbon Dioxide 27 BUN 21 H Creatinine 0.85 Assessment and Plan Assessment Anesthesia Assessment: Chart Reviewed Documented by User: Prisca Riojas 12/16/20 08:55 [facility] Past Medical History Medical History Anxiety Arthritis Asthma Back pain Depression Dyslipidemia Fibromyalgia Fibromyalgia Flu-like symptoms GERD (gastroesophageal reflux disease) HLD (hyperlipidemia) HTN (hypertension) Hx of thyroid nodule Low back pain Nephrolithiasis Obesity, Class I, BMI 30-34.9 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 Type 2 diabetes mellitus Family History Family History Father Diabetes Hypertension Depression Mother Lung cancer Diabetes Brother HIV (human immunodeficiency virus infection) Depression Diabetes Sister Hypertension Diabetes Surgical History Surgical History H/O hemorrhoidectomy H/O partial thyroidectomy (~2016) History of abdominoplasty History of bilateral breast reduction surgery (~2008) History of colonoscopy History of hysterectomy History of laparoscopic adjustable gastric banding (~2010) History of removal of laparoscopic gastric banding device (~2015) Hx laparoscopic cholecystectomy Hx of colonoscopy (~11/2016) S/P anal fissurectomy S/P left oophorectomy Social History Social History (Updated 12/13/20 @ 13:44 by Sendy Cheng [facility]) Alcohol intake: current Alcohol intake frequency: holidays/special occasions only Smoking Status: Never smoker Second Hand Smoke Exposure: No Use of substances other than those prescribed or required for medical reasons: No Have you been hit, kicked, punched, or otherwise hurt by someone within the past year? If so, by whom?: No Advance Directives: No Advance Directives Information Provided: No Meds Allergies Allergy/AdvReac Type Severity Reaction Status Date / Time seafood Allergy Unknown Unknown Verified 12/13/20 13:39 lisinopril AdvReac Unknown cough Verified 12/13/20 13:39 Home Medications Medication Instructions Recorded Confirmed Last Taken Type zolpidem 12.5 mg tablet,extended 12.5 mg PO BEDTIME 08/09/20 12/13/20 Unknown History release,multiphase citalopram 20 mg tablet 20 mg PO DAILY 08/19/20 12/13/20 Unknown History clonazepam 2 mg tablet 2 mg PO tab 10/24/20 12/13/20 Unknown History pregabalin 100 mg capsule 100 mg PO BID cap 10/24/20 12/13/20 Unknown History escitalopram oxalate 20 mg tablet 20 mg PO DAILY 11/24/20 12/13/20 Unknown History sucralfate 1 gram tablet PO 11/24/20 12/13/20 Unknown History clonazepam 1 mg tablet 1 mg PO BID PRN tab 12/13/20 12/13/20 Unknown History
[2020-12-15 13:36] VITALS: BMI 33.5
[2020-12-16 09:06] VITALS: BP 126/62; PULSE 78; RESP 18; TEMP 36.8; O2SAT 97
--- NOTE | 2020-12-16 09:27 | W.PM.OPN ---
Operative Note Operative Note Date of Service: 12/16/20 Narrative: Pre-op diagnosis: Dysphagia, abdominal pain Post-op diagnosis: other (Gastritis, Dysphagia) Procedure: FLEXIBLE TRANSORAL UPPER GASTROINTESTINAL ENDOSCOPY WITH BIOPSIES AND ESOPHAGEAL BALLOON DILATION Consent: Indications for the procedure and potential complications of bleeding, perforation, reaction to medications and missed diagnosis were discussed with the patient and informed consent was obtained. Instrument: Olympus GIF H 190 mid size upper endoscope Monitoring: Vital signs and clinical assessment, continuous EKG monitoring, Pulse oximetry, Carbon Dioxide monitoring and blood pressure monitoring were done throughout the procedure. Procedure: The patient was placed in the left lateral decubitis position and pre-procedure medications were administered and a bite block was placed. The endoscope was inserted into the mouth and advanced under direct vision to the third part of duodenum. A careful inspection was made as the upper endoscope was withdrawn including a retroflexed examination of the proximal stomach; Findings and interventions are described below. Findings: Larynx: Normal Esophagus: Tortuous esophagus with increased tertiary contractions without stricture or ring - biopsies were obtained from proximal esophagus to check for EOE. GE junction at 36 cms. Prominent folds at GE junction - biopsied. No esophagitis or Garcia Stomach: Mild gastric erythema with a few antral erosions. Biopsies were obtained. Grade 2 flap valve on retroflexed examination of the cardia. Duodenum: Normal bulb and descending duodenum. Biopsies were obtained from 3rd part of the duodenum to check for celiac sprue. Intervention: Biopsies as noted above Impression and Post Procedure Diagnosis: Endoscopy Findings: ESOPHAGUS: Tortuous esophagus with increased tertiary contractions without stricture or ring - biopsies were obtained from proximal esophagus to check for EOE. GE junction at 36 cms. Prominent folds at GE junction - biopsied. No esophagitis or Garcia STOMACH: Gastritis with a few superficial antral erosions likely due to NSAIDS DUODENUM: Normal - biopsied to check for celiac sprue. Plan: Await pathology results Patient has an appointment on 01/19/21 in the GI [facility] with Shabnam Hitchcock M.D. If symptoms persist, further evaluation with a chest CT scan will be scheduled Above findings were reviewed with the patient and Gastritis handout was given in the discharge area Surgeon: Shabnam Hitchcock MD Anesthesia: MAC (LINH Davila & Dr Bartholomew) Estimated blood loss (mL): 0 Pathology: other (A. Small bowel, B. Gastric antrum, C. Proximal esophagus, D. GE junction) Condition: stable Disposition: PACU
--- NOTE | 2020-12-16 09:27 | MHC.SHP ---
Pre-Procedural Eval Section A The patient is an INPATIENT: No Changes since office visit: Yes Patient answered all questions; No Cold of Flu in the past 2 weeks, No New Medical Problems and No Changes in Medication The History & Physical has been completed within 30 days and I have reviewed it.: Yes Section B Chief Complaint: epigastric Allergies: Allergies Allergy/AdvReac Type Severity Reaction Status Date / Time seafood Allergy Unknown Unknown Verified 12/13/20 13:39 lisinopril AdvReac Unknown cough Verified 12/13/20 13:39 Plan I have reviewed the history and physical and performed a pertinent physical examination on my patient. No changes have occurred unless specified.
[2020-12-16] MEDS: Lactated Ringers 1,000 ML 100 ML IVCONT (09:35)
[2020-12-16 09:36] LABS: Glucose, Whole Blood 121 mg/dL (60-115)
--- NOTE | 2020-12-16 09:53 | P.CONAN_ITS ---
[facility] Active Problems Active Problems: All Active Problems (Updated 12/15/20 @ 10:57 by Nikole jalloh) Schatzki's ring (Acute) Epigastric pain (Acute) Migraines (Acute) Lumbar radiculopathy (Acute) Sciatica associated with disorder of lumbar spine (Acute) Flu-like symptoms (Acute) Spondylosis of lumbar spine (Acute) Low back pain (Acute) Fibromyalgia (Acute) Type 2 diabetes mellitus (Acute) Dyslipidemia (Acute) HTN (hypertension) (Acute) Obesity, Class I, BMI 30-34.9 (Acute) Annual physical exam (Acute) Screening for STD (sexually transmitted disease) (Acute) Screening for HIV (human immunodeficiency virus) (Acute) UTI (urinary tract infection) (Acute) Somatic dysfunction of right sacroiliac joint (Acute) Colon cancer screening (Acute) Recurrent Clostridioides difficile infection (Acute) Schatzki's ring (Acute) Epigastric pain (Acute) HLD (hyperlipidemia) (Acute) Renal colic (Acute) Hematuria (Acute) Nephrolithiasis (Acute) Past Medical History Medical History Anxiety Arthritis Asthma Back pain Depression Dyslipidemia Fibromyalgia Fibromyalgia Flu-like symptoms GERD (gastroesophageal reflux disease) HLD (hyperlipidemia) HTN (hypertension) Hx of thyroid nodule Low back pain Nephrolithiasis Obesity, Class I, BMI 30-34.9 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 Type 2 diabetes mellitus Family History Family History Father Diabetes Hypertension Depression Mother Lung cancer Diabetes Brother HIV (human immunodeficiency virus infection) Depression Diabetes Sister Hypertension Diabetes Surgical History Surgical History H/O hemorrhoidectomy H/O partial thyroidectomy (~2016) History of abdominoplasty History of bilateral breast reduction surgery (~2008) History of colonoscopy History of hysterectomy History of laparoscopic adjustable gastric banding (~2010) History of removal of laparoscopic gastric banding device (~2015) Hx laparoscopic cholecystectomy Hx of colonoscopy (~11/2016) S/P anal fissurectomy S/P left oophorectomy Social History Social History Alcohol intake: current Alcohol intake frequency: holidays/special occasions only Smoking Status: Never smoker Second Hand Smoke Exposure: No Use of substances other than those prescribed or required for medical reasons: No Have you been hit, kicked, punched, or otherwise hurt by someone within the past year? If so, by whom?: No Advance Directives: No Advance Directives Information Provided: No Meds Allergies Allergy/AdvReac Type Severity Reaction Status Date / Time seafood Allergy Unknown Unknown Verified 12/13/20 13:39 lisinopril AdvReac Unknown cough Verified 12/13/20 13:39 Active Medications: Current Medications Generic Name Dose Route Start Last Admin Trade Name Freq PRN Reason Stop Dose Admin Albuterol Sulfate 2.5 mg 12/16/20 09:18 Albuterol Sulfate (0.083%) 2.5 Mg/3 Ml Vial.Neb INHALE ONCE PRN Shortness of Breath/Wheezing Lactated Ringer's 1,000 mls @ 100 mls/hr 12/16/20 09:30 12/16/20 09:35 Lr IVCONT 100 mls/hr .Q10H ELIA Administration Home Medications Medication Instructions Recorded Confirmed Last Taken Type zolpidem 12.5 mg tablet,extended 12.5 mg PO BEDTIME 08/09/20 12/13/20 Unknown History release,multiphase citalopram 20 mg tablet 20 mg PO DAILY 08/19/20 12/13/20 12/16/20 History clonazepam 2 mg tablet 2 mg PO tab 10/24/20 12/13/20 12/16/20 History pregabalin 100 mg capsule 100 mg PO BID cap 10/24/20 12/13/20 Unknown History escitalopram oxalate 20 mg tablet 20 mg PO DAILY 11/24/20 12/13/20 Unknown History sucralfate 1 gram tablet PO 11/24/20 12/13/20 Unknown History clonazepam 1 mg tablet 1 mg PO BID PRN tab 12/13/20 12/13/20 12/16/20 History Exam Exam Date and Time: December 16, 2020 0953 Height,Weight and Vital Signs: Height 5 ft 6 in Weight 94.347 kg Last Vital Signs Temp 98.3 F 12/16/20 09:06 Pulse 78 12/16/20 09:06 Resp 18 12/16/20 09:06 BP 126/62 12/16/20 09:06 Pulse Ox 97 12/16/20 09:06 Pertinent Lab Results Pertinent Lab Results: Laboratory Tests 12/16/20 09:14 POC Glucose 121 H Airway Mallampati Class: II TM Dist: >3cm Neck ROM: Full Heart: RRR Lungs: CTA
[2020-12-16 10:14] VITALS: BP 89/49; PULSE 80; RESP 16; TEMP 36.3; O2SAT 99
--- NOTE | 2020-12-16 10:18 | HO.POSTANES ---
Post Anesthesia Evaluation Post Anesthesia Evaluation Vital Signs: Vital Signs Temp Pulse Resp BP Pulse Ox 12/16/20 10:14 97.4 F 80 16 89/49 L 99 12/16/20 09:06 98.3 F 78 18 126/62 97 Anesthesia: Monitored Mental Status: Awake Pain Control: Satisfactory Nausea/Vomiting: None Hydration: Adequate Anesthesia-Related Issues: No Anes. Related Issues
[2020-12-16 10:42] VITALS: BP 104/64; PULSE 64; RESP 16; TEMP 36.3; O2SAT 97
== END 2020-12-16 11:10 | disposition home or self-care (01) ==
PROVIDERS: PCP Physician Assistant; Visit Provider Internal Medicine Gastroenterology
PROC: (CPT 43239; principal; 2020-12-16 10:00)
DX: R13.10 Dysphagia, unspecified (principal); K22.8 Other specified diseases of esophagus; K29.50 Unspecified chronic gastritis without bleeding; K21.9 Gastro-esophageal reflux disease without esophagitis; I10 Essential (primary) hypertension; E11.9 Type 2 diabetes mellitus without complications; F32.9 Major depressive disorder, single episode, unspecified; J45.909 Unspecified asthma, uncomplicated; Z79.899 Other long term (current) drug therapy; Z79.84 Long term (current) use of oral hypoglycemic drugs; Z98.84 Bariatric surgery status; Z90.49 Acquired absence of other specified parts of digestive tract; Z88.8 Allergy status to other drugs, medicaments and biological substances
CPT/HCPCS: 43239; 82947; 88305; 88342; C1726

== ENCOUNTER → 2021-01-19 14:04 | Outpatient (BNVA) | payer OTHER, SELFPAY | PROVIDERS: PCP Physician Assistant; Visit Provider Internal Medicine Gastroenterology ==

== ENCOUNTER → 2021-01-23 10:51 | Outpatient (BNVA) | payer OTHER, SELFPAY | PROVIDERS: PCP Physician Assistant; Visit Provider Nurse Practitioner Gerontology ==

== ENCOUNTER 2021-01-30 11:52 | Outpatient (REF) | payer OTHER, SELFPAY ==
[2021-01-30 14:38] LABS: Estimated Average Glucose 134 mg/dL; Hemoglobin A1c % 6.3 %
== END 2021-01-30 11:53 | disposition home or self-care (01) ==
LOC: HO.HMGCLDS 11:52
PROVIDERS: Visit Provider Nurse Practitioner Gerontology
DX: E11.9 Type 2 diabetes mellitus without complications (principal); Z79.4 Long term (current) use of insulin
CPT/HCPCS: 36415; 83036

== ENCOUNTER 2021-02-03 15:09 | Outpatient (REF) | payer OTHER, SELFPAY ==
--- NOTE | ~2021-02-03 | MM_ITS ---
EXAMINATION: MM SCREENING DIGITAL BREAST TOMOSYNTHESIS, BILATERAL CLINICAL INFORMATION: Screening. Asymptomatic. Prior bilateral reduction mammoplasty 2006. The lifetime risk of breast cancer based on the Tyrer-Cuzick Model is 5%. COMPARISON: Mammography: 06/22/2019, 06/16/2018, 06/12/2017 TECHNIQUE: Digital breast tomosynthesis is performed in both the craniocaudal and mediolateral oblique views along with computer-aided detection (CAD). Synthesized 2D images are generated from the tomosynthesis. FINDINGS: There are scattered areas of fibroglandular density (ACR BI-RADS breast composition Category b). There is some minor scarring in the breasts consistent with the prior history reduction mammoplasty. There are some scattered punctate calcifications, including small group of 3-4 posterior inferior medial right breast and grouped of 2 mid 3:00 left breast. There are no suspicious calcifications. The axilla are unremarkable. No skin thickening. No interval mass or architectural abnormality or developing density. MM/MM tomosynthesis screening BI IMPRESSION: No mammographic evidence of malignancy. ASSESSMENT: BI-RADS 2: Benign RECOMMENDATION: Routine annual mammography screening. This patient's information was entered into a reminder system with a target due date for their next mammogram.
== END 2021-02-03 15:10 | disposition home or self-care (01) ==
LOC: HO.MAMMO 15:09
PROVIDERS: PCP Physician Assistant; Visit Provider Physician Assistant
DX: Z12.31 Encounter for screening mammogram for malignant neoplasm of breast (principal)
CPT/HCPCS: 77063; 77067

== ENCOUNTER 2021-04-06 11:14 | Outpatient (REF) | payer OTHER, SELFPAY ==
[2021-04-06 11:59] LABS: MANUAL DIFF FLAG NO
[2021-04-06 12:03] LABS: Basophils Percent Auto 0.8 % (0-2); Eosinophils Absolute Auto 0.1 X10*3/uL (0.0-0.4); Eosinophils Percent Auto 2.3 % (0-4); Hematocrit 40.2 % (37-47); Hematocrit 40.5 % (37-47); Hemoglobin 13.4 g/dl (12.0-16.0); Imm Gran Abs Auto 0.01 X10*3/uL (0.00-0.03); Imm Gran Pct Auto 0.2 % (0.0-0.4); Lymphocytes Absolute Auto 2.2 X10*3/uL (1.2-4.9); Lymphocytes Percent Auto 45.3 % (20-40); Mean Corpuscular HGB Conc 33.1 g/dl (31.0-35.0); Mean Corpuscular HGB Conc 33.3 g/dl (31.0-35.0); Mean Corpuscular Hemoglobin 28.3 pg (27.0-33.0); Mean Corpuscular Hemoglobin 28.6 pg (27.0-33.0); Mean Corpuscular Volume 85.6 fL (80-98); Mean Corpuscular Volume 85.7 fL (80-98); Mean Platelet Volume 9.2 fL (9.4-12.3); Monocytes Absolute Auto 0.3 X10*3/uL (0.1-1.2); Monocytes Percent Auto 6.6 % (2-11); Neutrophils Absolute Auto 2.2 X10*3/uL (2.0-8.3); Neutrophils Percent Auto 44.8 % (45-73); Platelet Count 302 X10*3/uL (160-400); Platelet Count 313 X10*3/uL (160-400); Red Blood Count 4.69 X10*6/uL (4.20-5.50); Red Blood Count 4.73 X10*6/uL (4.20-5.50); Red Cell Distribution Width 12.1 % (11.0-16.0); White Blood Count 4.9 X10*3/uL (4.8-10.8)
[2021-04-06 12:33] LABS: Alanine Aminotransferase 46 U/L (0-31); Albumin Level 4.8 g/dL (3.5-5.0); Alkaline Phosphatase 40 U/L (39-117); Aspartate Amino Transferase 23 U/L (5-31); Bilirubin Total 0.6 mg/dL (0.0-1.0); Blood Urea Nitrogen 12 mg/dL (9-16); Calcium 9.8 mg/dL (8.4-10.2); Cholesterol 162 mg/dL; Estimated Glomerular Filt Rate > 60; Glucose Fasting 120 mg/dL (60-99); HDL Cholesterol 57 mg/dL; LDL Cholesterol Calculated 66 mg/dl; Total Protein 7.2 g/dL (6.5-8.0); Triglycerides 197 mg/dL
[2021-04-06 12:36] LABS: Blood Urea Nitrogen 12 mg/dL (9-16); Calcium 9.7 mg/dL (8.4-10.2); Estimated Glomerular Filt Rate > 60; Glucose Fasting 120 mg/dL (60-99)
[2021-04-06 13:13] LABS: CDIFF Ag Positive (Negative); CDIFF Internal ctrl Dots and bkg OK (V); CDiff Toxin Negative (Negative)
[2021-04-06 13:27] LABS: Anion Gap 13 (12-20); Carbon Dioxide 23 mmol/L (22-29); Chloride 105 mmol/L (96-108); Potassium 4.1 mmol/L (3.3-5.1); Sodium 137 mmol/L (135-145)
[2021-04-06 13:35] LABS: Anion Gap 14 (12-20); Carbon Dioxide 22 mmol/L (22-29); Chloride 106 mmol/L (96-108); Potassium 4.1 mmol/L (3.3-5.1); Sodium 138 mmol/L (135-145)
[2021-04-06 13:43] LABS: Creatinine Urine 217.83 mg/dL; Microalbum/Creatinine Ratio Ur 6.8 ug/mg cr
[2021-04-06 13:56] LABS: Estimated Average Glucose 134 mg/dL; Hemoglobin A1c % 6.3 %
[2021-04-06 14:04] LABS: CDiff Gene PCR POSITIVE (Negative)
== END 2021-04-06 11:15 | disposition home or self-care (01) ==
LOC: HO.LAB 11:14
PROVIDERS: Nurse Practitioner Family; PCP Physician Assistant; Visit Provider Physician Assistant
DX: R19.7 Diarrhea, unspecified (principal); K21.9 Gastro-esophageal reflux disease without esophagitis; R10.13 Epigastric pain; K22.2 Esophageal obstruction; R13.14 Dysphagia, pharyngoesophageal phase; R14.0 Abdominal distension (gaseous); K64.9 Unspecified hemorrhoids; E78.5 Hyperlipidemia, unspecified; I10 Essential (primary) hypertension; R11.0 Nausea; E11.9 Type 2 diabetes mellitus without complications; Z79.899 Other long term (current) drug therapy; Z79.4 Long term (current) use of insulin; Z12.11 Encounter for screening for malignant neoplasm of colon
CPT/HCPCS: 36415; 80048; 80053; 80061; 82043; 83036; 84443; 85025; 85027; 87045; 87046; 87324; 87449; 87493

== ENCOUNTER → 2021-05-15 10:28 | Outpatient (BNVA) | payer OTHER, SELFPAY | PROVIDERS: PCP Physician Assistant; Visit Provider Internal Medicine Gastroenterology | DX: R19.7 Diarrhea, unspecified (principal); R13.14 Dysphagia, pharyngoesophageal phase; R19.6 Halitosis; R14.0 Abdominal distension (gaseous); R10.13 Epigastric pain; K22.2 Esophageal obstruction; M79.7 Fibromyalgia; Z12.11 Encounter for screening for malignant neoplasm of colon | CPT/HCPCS: Q3014 ==

== ENCOUNTER 2021-05-18 14:53 | Outpatient (REF) | payer OTHER, SELFPAY ==
[2021-05-18 16:12] LABS: Blood Urea Nitrogen 11 mg/dL (9-16); Estimated Glomerular Filt Rate > 60
[2021-05-19 11:00] LABS: CDiff Gene PCR POSITIVE (Negative)
[2021-05-19 12:25] LABS: CDIFF Internal ctrl Dots and bkg OK (V); CDiff Toxin Negative (Negative)
== END 2021-05-18 14:54 | disposition home or self-care (01) ==
LOC: HO.LAB 14:53
PROVIDERS: PCP Physician Assistant; Visit Provider Internal Medicine Gastroenterology
DX: R13.14 Dysphagia, pharyngoesophageal phase (principal); R19.6 Halitosis
CPT/HCPCS: 36415; 82565; 84520; 87324; 87493

== ENCOUNTER 2021-05-22 09:00 | Outpatient (REF) | payer OTHER, SELFPAY ==
--- NOTE | ~2021-05-22 | CT_ITS ---
EXAMINATION: CT CHEST WITH CONTRAST CLINICAL INFORMATION: Halitosis COMPARISON: Chest CT most recent March 2020 TECHNIQUE: Multidetector volumetric CT imaging of the chest was obtained after the administration of 65 mL of Omnipaque 350 intravenous contrast without immediate adverse reactions. Axial MIP volume rendering provided. Sagittal and coronal reformatted images were obtained. This CT examination was performed using dose optimization techniques as appropriate, variously including the following: *Automated exposure control *Adjustment of mA and/or kV according to patient size (this includes techniques or standardized protocols for targeted exams where dose is matched to indication/reason for exam; i.e. extremities or head) *Use of iterative reconstruction technique DLP: 190 mGy-cm FINDINGS: LUNGS: There is a 2 mm peripheral or subpleural right middle lobe nodule, axial image 96 series 7, that is stable. This appeared calcified on previous exam. There is a 4 mm calcified lingular nodule, axial image 85 series 7, that is stable The lungs are otherwise clear. MEDIASTINUM: The right lobe of the thyroid gland has been removed. There are calcified mediastinal and left hilar lymph nodes. The heart does not appear enlarged. There is no pericardial effusion. There is oral contrast in the esophagus. PLEURA: There is no pleural effusion. No pleural mass or thickening. AXILLA: No lymphadenopathy. UPPER ABDOMEN: The liver appears low in attenuation suggestive of fatty infiltration. The gallbladder has been removed. There are calcifications in the spleen suggestive of old granulomatous disease. There is oral contrast in the stomach. OSSEOUS STRUCTURES: Unremarkable. CT/CT chest w con IMPRESSION: Stable exam. Evidence of old granulomatous disease. Right thyroidectomy. Fatty liver.
[2021-05-22] MEDS: iohexoL 350 MG/ML 100 ML INFUS..BTL 65 ML IV (09:52)
== END 2021-05-22 09:01 | disposition home or self-care (01) ==
LOC: HO.CT 09:00
PROVIDERS: Visit Provider Internal Medicine Gastroenterology
DX: R13.10 Dysphagia, unspecified (principal); R19.6 Halitosis
CPT/HCPCS: 71260; Q9967

== ENCOUNTER 2021-06-08 13:44 | Outpatient (REF) | payer OTHER, SELFPAY ==
--- NOTE | ~2021-06-08 | XR_ITS ---
EXAMINATION: XR SACRUM AND COCCYX CLINICAL INFORMATION: Pain. COMPARISON: Hip and pelvic radiographs dated 11/07/2020. TECHNIQUE: 2 views of the sacrum and 2 views of the coccyx were obtained. FINDINGS: Tiny right and left sacroiliac joint inferior marginal osteophytes. No osseous erosion. No subchondral sclerosis. No acute fracture or subluxation. Phleboliths within the pelvis. XR/XR sacrum coccyx min 2V IMPRESSION: Minimal right and left sacroiliac osteoarthritis, unchanged.
== END 2021-06-08 13:45 | disposition home or self-care (01) ==
LOC: HO.XRAY 13:44
PROVIDERS: PCP Physician Assistant; Visit Provider Physician Assistant
DX: M25.559 Pain in unspecified hip (principal)
CPT/HCPCS: 72220

== ENCOUNTER 2021-06-17 12:31 | Emergency (ER) | payer OTHER, SELFPAY ==
--- NOTE | ~2021-06-17 | CT_ITS ---
EXAMINATION: CT ABDOMEN AND PELVIS WITH CONTRAST CLINICAL INFORMATION: Abdominal pain. Nausea vomiting and diarrhea. COMPARISON: CT of the abdomen and pelvis done on 09/13/2020. TECHNIQUE: Multidetector volumetric images were obtained from the superior aspect of the liver through the pubic symphysis following administration 85 mL of Omnipaque 350 intravenous contrast. Sagittal and coronal reformatted images were obtained on the technologist's workstation. Oral contrast: No This CT examination was performed using dose optimization techniques as appropriate, variously including the following: *Automated exposure control *Adjustment of mA and/or kV according to patient size (this includes techniques or standardized protocols for targeted exams where dose is matched to indication/reason for exam; i.e. extremities or head) *Use of iterative reconstruction technique DLP: 744 mGy-cm FINDINGS: LUNG BASES: The visualized lung bases are unremarkable. LIVER, GALLBLADDER, AND BILIARY TREE: Diffuse hepatic hypodensity consistent with hepatic steatosis is present. Tiny punctate subcentimeter calcified presumed granuloma is noted within the right lobe of the liver, unchanged. The gallbladder is surgically absent. PANCREAS: Unremarkable. SPLEEN: Unremarkable. Incidental note is made of multiple subcentimeter calcified presumed granulomas, unchanged since 09/13/2020. ADRENAL GLANDS: Unremarkable. KIDNEYS AND URETERS: The kidneys are normal in size, shape, and attenuation. No hydronephrosis, or hydroureter. Punctate 1 to 2 mm nonobstructing bilateral renal radiopaque calculi are noted (see the law images). No perinephric stranding. Resolution of previously documented hydroureteronephrosis of the right kidney and obstructing right distal ureteric calculus since the prior study dated 09/13/2020. BLADDER: Unremarkable. GASTROINTESTINAL TRACT: Colonic diverticulosis related changes are noted within the large bowel without any CT features of superimposed acute diverticulitis. The appendix is well-visualized with its tip seen abutting the inferior pole of the right lobe of the liver. ABDOMINAL WALL: No significant hernia is appreciated. LYMPH NODES: Normal. VASCULAR: Unremarkable. PELVIC VISCERA: There is no pelvic mass present. No evidence of any free fluid and/or free air. OSSEOUS STRUCTURES: Degenerative spondylosis mostly localized to L4-L5 and to a lesser extent L5-S1. Mild diffuse osteopenia. CT/CT abdomen pelvis w con IMPRESSION: 1. Bilateral nonobstructing renal calculi. 2. Hepatomegaly, and diffuse hepatic hypodensity consistent with hepatic steatosis, unchanged. 3. Colonic diverticulosis without any CT features of superimposed acute diverticulitis. 4. Calcified hepatic and splenic presumed granulomas.
[2021-06-17 12:36] VITALS: BP 123/64; PULSE 88; RESP 16; TEMP 37.1; O2SAT 98; BMI 31.9
--- NOTE | 2021-06-17 13:31 | ED_ITS ---
HPI - Abdominal Pain General Chief Complaint: Abdominal Pain Stated Complaint: Abdominal pain Time Seen by Provider: 06/17/21 13:01 Source: patient Mode of arrival: ambulatory Limitations: no limitations History of Present Illness HPI narrative: 56-year-old female With a past medical history of diabetes type 2, hypertension, hypercholesterolemia, obesity s/p surgery in 2010 and lap band was removed in 2015, who is currently being treated for H pylori infection on vancomycin being followed by Dr. Hitchcock with complaints of abdominal pain with associated diarrhea that has now turned into more formed stools for the past 3 days worse today. Denies any fevers, chills, dizziness, headaches, sore throat, cough, chest pain, shortness of breath, radiation of the abdominal pain, back pain, dysuria, hematuria, black or bloody stools, constipation, recent travel or sick contacts or bad food exposure or any other symptoms complaints or concerns at this time. Reports that she is taking her vancomycin as prescribed. Denies any other symptoms complaints or concerns at this time. MD elicited complaint: abdominal pain Pertinent past history: other (Currently being treated for C diff on vancomycin) Onset (ago): day(s) (3 days) Pain Consistency: constant Location: diffuse Severity: moderate Quality: aching Radiation: none Migration to: no migration Exacerbating factors: nothing Relieving factors: nothing Associated symptoms: diarrhea Related Data Home Medications Medication Instructions Recorded Confirmed zolpidem 12.5 mg tablet,extended 12.5 mg PO BEDTIME 08/09/20 05/15/21 release,multiphase citalopram 20 mg tablet 20 mg PO DAILY 08/19/20 05/15/21 escitalopram oxalate 20 mg tablet 20 mg PO DAILY 11/24/20 05/15/21 clonazepam 1 mg tablet 1 mg PO BID PRN tab 12/13/20 05/15/21 Previous Rx's Medication Instructions Recorded alcohol swabs (Alcohol Prep Pads) 1 pad TOPICAL .One per day 90 Days 10/12/20 #100 ea omeprazole 20 mg capsule,delayed 20 mg PO DAILY #90 cap 10/27/20 release ibuprofen 800 mg tablet 800 mg PO Q8H #45 tab 11/08/20 blood sugar diagnostic (FreeStyle #25 ea 11/10/20 Precision Steffen Strips) yheddykmjq-zbwwyxaozigre-zczoubyh 1 cap PO Q8H PRN 7 Days #21 cap 11/24/20 50 mg-325 mg-40 mg capsule tramadol 50 mg tablet 50 mg PO BID PRN 10 Days #20 tab 03/14/21 atorvastatin 20 mg tablet 20 mg PO DAILY 90 Days #90 tab 03/16/21 cholecalciferol (vitamin D3) 25 25 mcg PO DAILY #90 cap 03/16/21 mcg (1,000 unit) capsule (Vitamin D3) pyridoxine (vitamin B6) 100 mg 100 mg PO DAILY #90 tab 03/16/21 tablet simethicone 125 mg chewable tablet See Rx Instructions PO BID-QID PRN 04/06/21 (Gas Relief (simethicone)) 30 Days #90 tab fenofibrate nanocrystallized 48 mg 48 mg PO DAILY #90 tab 05/15/21 tablet metformin 1,000 mg tablet 1,000 mg PO BID #180 tab 05/15/21 telmisartan 20 mg tablet 20 mg PO DAILY 90 Days #90 tab 05/16/21 cetirizine 10 mg tablet 10 mg PO DAILY PRN 90 Days #90 tab 06/06/21 vancomycin 125 mg capsule 125 mg PO DIRECTED 42 Days #23 06/07/21 cap gabapentin 300 mg capsule 300 mg PO BID 30 Days #60 cap 06/08/21 acetaminophen 500 mg tablet 1,000 mg PO QID PRN #14 tab 06/17/21 (Tylenol Extra Strength) ibuprofen 800 mg tablet 800 mg PO Q8H PRN #14 tab 06/17/21 ondansetron HCl 4 mg tablet 4 mg PO Q8H PRN #14 tab 06/17/21 (Zofran) oxycodone 5 mg tablet 5 mg PO BID PRN #10 tab 06/17/21 Allergies Allergy/AdvReac Type Severity Reaction Status Date / Time seafood Allergy Unknown Unknown Verified 06/08/21 13:08 lisinopril AdvReac Unknown cough Verified 06/08/21 13:08 Review of Systems Review of Systems Constitutional : No Weight loss, No Fever, No Chills, No Night Sweats, No Fatigue, NoMalaise ENT/Mouth: No ear pain, No sore throat, No Difficulty swallowing Cardiovascular : No Chest Pain, No SOB, No Dyspnea on Exertion, No Orthopnea, NoEdema, No Palpitations Respiratory : No Cough, No Sputum, No Wheezing, No Dyspnea Gastrointestinal : Positive abdominal pain, Positive Diarrhea, No Nausea, No Vomiting, No blood streaked emesis, No coffee-ground emesis, No gross hematemesis, No blood streak stool, No gross hematochezia, No Melena Genitourinary : No irregular bleeding, No Dysuria, No Urinary Frequency, No Hematuria,No Urinary Incontinence, No Urgency, No Flank Pain Musculoskeletal : No joint pain, No Myalgias, No Joint Swelling Skin : No Skin Lesions, No rash Neuro : No Weakness, No Numbness, No Paresthesias, No Loss of Consciousness, NoDizziness, No Headache Psych : No Social Issues, Heme/Lymph: No Bruising, No Bleeding,No Lymphadenopathy Endocrine : No Polyuria, No Polydipsia, No Temperature Intolerance Yes all other systems are reviewed and are negative Physical Exam Vital Signs: Vital Signs: Last Vital Signs Temp 98.7 F 06/17/21 12:36 Pulse 88 06/17/21 12:36 Resp 16 06/17/21 16:34 BP 123/64 06/17/21 12:36 Pulse Ox 98 06/17/21 12:36 Body Mass Index 31.9 vital signs have been reviewed as normal and appeared to be correct. Blood pressure normal. Heart rate normal. Respiration rate normal. Temperature normal. Oxygen saturation normal. Appearance: Alert. Oriented X3. No acute distress. Head: Normal external exam. Normocephalic. Eyes: PERRLA. EOMI. Conjunctiva and sclera normal. Eyelids normal. ENT: Pharynx normal. Uvula midline. Moist mucous membranes. Neck: Normal inspection. Neck supple. FROM. No adenopathy. No meningeal signs. CVS: Normal heart rate and rhythm. Heart sound normal. No murmurs noted. Pulses normal throughout. Respiratory: No respiratory distress. Painless inspiration. Breath sounds normal. No wheezes/rales/rhonchi noted. Chest nontender. No accessory muscle usage noted or decreased air movement noted. Abdomen: Soft and mild tenderness to palpation diffusely with guarding. Nondistended. No rigidity. Bowel sounds normal in all 4 quadrants. No distention noted. No organomegaly noted. No visible injury noted. No rebound tenderness. Negative Rovsing sign. Negative obturator's sign. Negative psoas sign. Negative Bowers sign. Back: No CVA tenderness. Full range of motion noted. Skin: Skin warm and dry. Normal skin color. Normal skin turgor. No rashes/lesions/lacerations noted. Extremities: Extremities exhibit normal range of motion. Extremities nontender. Neuro: Oriented X 3. No motor deficit. No sensory deficit. Reflexes normal. Normal steady gait. Course Course Course Narrative: 13pm - 56-year-old female whi is currently being treated for H pylori infection on vancomycin being followed by Dr. Hitchcock with complaints of abdominal pain with associated diarrhea that has now turned into more formed stools for the past 3 days worse today. Plan: Labs, C diff sample, COVID/RSV/flu swab, UA, CT scan abdomen pelvis with IV contrast. Provide a L of IV fluids with 4 mg of Zofran and 4 mg of morphine and re-evaluate. Reevaluation(s) Reevaluation #1: - labs return and random glucose at 116 and ALT at 41 otherwise all other labs are within normal limits. UA within normal limits no evidence of UTI. C diff sample negative today. COVID/RSV/flu negative. - CT scan abdomen and pelvis revealed chronic changes no acute processes were noted. Therefore explained the results to the patient explained to her that it could just be the vancomycin that she is on although explained to her that she should continue taking the antibiotics as previously prescribed until she is completely finished with the course she reports that she no longer wants to take the antibiotics because they were causing her worsening side effects. I explained her that she should follow-up with her PCP and receiving tank operator regarding this that I would recommend to continue taking the antibiotics although if she does not want to take and that is up to her. - otherwise will DC home with nausea medication oxycodone along with instructions return if any new or worsening symptoms to follow up with primary care provider and receiving tank operator. Patient understands agrees with this plan. Time: 16:53 MDM - Abdominal Pain Medical Records Attestation: I reviewed the patient's medical records. Lab Data Attestation: I reviewed the patient's lab results. Result diagrams: 06/17/21 13:46 06/17/21 13:45 Labs: Lab Results 06/17/21 06/17/21 06/17/21 Range/Units 13:45 13:45 13:45 WBC (4.8-10.8) X10*3/uL RBC (4.20-5.50) X10*6/uL Hgb (12.0-16.0) g/dl Hct (37-47) % MCV (80-98) fL MCH (27.0-33.0) pg MCHC (31.0-35.0) g/dl RDW (11.0-16.0) % Plt Count (160-400) X10*3/uL MPV (9.4-12.3) fL Immature Gran % (Auto) (0.0-0.4) % Neut % (Auto) (45-73) % Lymph % (Auto) (20-40) % [place] % (Auto) (2-11) % Eos % (Auto) (0-4) % Baso % (Auto) (0-2) % Lymph # (Auto) (1.2-4.9) X10*3/uL [place] # (Auto) (0.1-1.2) X10*3/uL Eos # (Auto) (0.0-0.4) X10*3/uL Baso # (Auto) (0.0-0.2) X10*3/uL Abs Immat Gran (auto) (0.00-0.03) X10*3/uL Absolute Neuts (auto) (2.0-8.3) X10*3/uL Absolute Nucleated RBC (0.0-0.012) X10*3/uL Nucleated RBC % (auto) (0.0-0.2) /100WBC ESR 6 (0-20) MM/HR PT 11.6 (9.9-13.0) SEC INR 1.0 (0.9-1.1) Sodium (135-145) mmol/L Potassium (3.3-5.1) mmol/L Chloride (96-108) mmol/L Carbon Dioxide (22-29) mmol/L Anion Gap (12-20) BUN (9-16) mg/dL Creatinine (0.5-1.4) mg/dL Estim Creat Clear Calc Estimated GFR Random Glucose (60-115) mg/dL Calcium (8.4-10.2) mg/dL Magnesium 2.2 (1.6-2.6) mg/dL Total Bilirubin (0.0-1.0) mg/dL AST (5-31) U/L ALT (0-31) U/L Alkaline Phosphatase (39-117) U/L C-Reactive Protein 0.42 (< or = 0.50) mg/dL Total Protein (6.5-8.0) g/dL Albumin (3.5-5.0) g/dL Lipase (8-78) U/L Urine Color Urine Appearance Urine pH (5.0-8.0) Ur Specific [place] (1.005-1.025) Urine Protein (NEG-TRACE) MG/DL Urine Glucose (UA) (NEG) MG/DL Urine Ketones (NEG) MG/DL Urine Blood (NEG) Urine Nitrite (NEG) Ur Leukocyte Esterase (NEG) C. difficile Tox B Gene (Negative) Coronavirus (PCR) (Negative) Influenza Type A (PCR) (Negative) Influenza Type B (PCR) (Negative) RSV RNA Qual (PCR) (Negative) 06/17/21 06/17/21 06/17/21 Range/Units 13:45 13:45 13:45 WBC (4.8-10.8) X10*3/uL RBC (4.20-5.50) X10*6/uL Hgb (12.0-16.0) g/dl Hct (37-47) % MCV (80-98) fL MCH (27.0-33.0) pg MCHC (31.0-35.0) g/dl RDW (11.0-16.0) % Plt Count (160-400) X10*3/uL MPV (9.4-12.3) fL Immature Gran % (Auto) (0.0-0.4) % Neut % (Auto) (45-73) % Lymph % (Auto) (20-40) % [place] % (Auto) (2-11) % Eos % (Auto) (0-4) % Baso % (Auto) (0-2) % Lymph # (Auto) (1.2-4.9) X10*3/uL [place] # (Auto) (0.1-1.2) X10*3/uL Eos # (Auto) (0.0-0.4) X10*3/uL Baso # (Auto) (0.0-0.2) X10*3/uL Abs Immat Gran (auto) (0.00-0.03) X10*3/uL Absolute Neuts (auto) (2.0-8.3) X10*3/uL Absolute Nucleated RBC (0.0-0.012) X10*3/uL Nucleated RBC % (auto) (0.0-0.2) /100WBC ESR (0-20) MM/HR PT (9.9-13.0) SEC INR (0.9-1.1) Sodium 139 (135-145) mmol/L Potassium 4.4 (3.3-5.1) mmol/L Chloride 103 (96-108) mmol/L Carbon Dioxide 25 (22-29) mmol/L Anion Gap 15 (12-20) BUN 12 (9-16) mg/dL Creatinine 0.83 (0.5-1.4) mg/dL Estim Creat Clear Calc 86.4 Estimated GFR > 60 Random Glucose 116 H D (60-115) mg/dL Calcium 9.7 (8.4-10.2) mg/dL Magnesium (1.6-2.6) mg/dL Total Bilirubin 0.7 (0.0-1.0) mg/dL AST 24 (5-31) U/L ALT 41 H (0-31) U/L Alkaline Phosphatase 66 D (39-117) U/L C-Reactive Protein (< or = 0.50) mg/dL Total Protein 7.8 (6.5-8.0) g/dL Albumin 4.9 (3.5-5.0) g/dL Lipase 63 (8-78) U/L Urine Color YELLOW Urine Appearance CLEAR Urine pH 6.0 (5.0-8.0) Ur Specific [place] 1.020 (1.005-1.025) Urine Protein NEG (NEG-TRACE) MG/DL Urine Glucose (UA) NEG (NEG) MG/DL Urine Ketones NEG (NEG) MG/DL Urine Blood NEG (NEG) Urine Nitrite NEG (NEG) Ur Leukocyte Esterase NEG (NEG) C. difficile Tox B Gene (Negative) Coronavirus (PCR) NEGATIVE (Negative) Influenza Type A (PCR) NEGATIVE (Negative) Influenza Type B (PCR) NEGATIVE (Negative) RSV RNA Qual (PCR) NEGATIVE (Negative) 06/17/21 06/17/21 Range/Units 13:45 13:46 WBC 6.3 (4.8-10.8) X10*3/uL RBC 5.03 (4.20-5.50) X10*6/uL Hgb 14.3 (12.0-16.0) g/dl Hct 42.1 (37-47) % MCV 83.7 (80-98) fL MCH 28.4 (27.0-33.0) pg MCHC 34.0 (31.0-35.0) g/dl RDW 12.1 (11.0-16.0) % Plt Count 315 (160-400) X10*3/uL MPV 8.8 L (9.4-12.3) fL Immature Gran % (Auto) 0.3 (0.0-0.4) % Neut % (Auto) 53.5 (45-73) % Lymph % (Auto) 35.4 (20-40) % [place] % (Auto) 7.9 (2-11) % Eos % (Auto) 2.1 (0-4) % Baso % (Auto) 0.8 (0-2) % Lymph # (Auto) 2.2 (1.2-4.9) X10*3/uL [place] # (Auto) 0.5 (0.1-1.2) X10*3/uL Eos # (Auto) 0.1 (0.0-0.4) X10*3/uL Baso # (Auto) 0.1 (0.0-0.2) X10*3/uL Abs Immat Gran (auto) 0.02 (0.00-0.03) X10*3/uL Absolute Neuts (auto) 3.4 (2.0-8.3) X10*3/uL Absolute Nucleated RBC 0.000 (0.0-0.012) X10*3/uL Nucleated RBC % (auto) 0.0 (0.0-0.2) /100WBC ESR (0-20) MM/HR PT (9.9-13.0) SEC INR (0.9-1.1) Sodium (135-145) mmol/L Potassium (3.3-5.1) mmol/L Chloride (96-108) mmol/L Carbon Dioxide (22-29) mmol/L Anion Gap (12-20) BUN (9-16) mg/dL Creatinine (0.5-1.4) mg/dL Estim Creat Clear Calc Estimated GFR Random Glucose (60-115) mg/dL Calcium (8.4-10.2) mg/dL Magnesium (1.6-2.6) mg/dL Total Bilirubin (0.0-1.0) mg/dL AST (5-31) U/L ALT (0-31) U/L Alkaline Phosphatase (39-117) U/L C-Reactive Protein (< or = 0.50) mg/dL Total Protein (6.5-8.0) g/dL Albumin (3.5-5.0) g/dL Lipase (8-78) U/L Urine Color Urine Appearance Urine pH (5.0-8.0) Ur Specific [place] (1.005-1.025) Urine Protein (NEG-TRACE) MG/DL Urine Glucose (UA) (NEG) MG/DL Urine Ketones (NEG) MG/DL Urine Blood (NEG) Urine Nitrite (NEG) Ur Leukocyte Esterase (NEG) C. difficile Tox B Gene NEGATIVE (Negative) Coronavirus (PCR) (Negative) Influenza Type A (PCR) (Negative) Influenza Type B (PCR) (Negative) RSV RNA Qual (PCR) (Negative) Imaging Data CT scan abdomen pelvis with IV contrast: Attestation: I personally reviewed and interpreted this imaging study as follows: Radiologist's impression: FINDINGS: LUNG BASES: The visualized lung bases are unremarkable.? LIVER, GALLBLADDER, AND BILIARY TREE: Diffuse hepatic hypodensity consistent with hepatic steatosis is present. Tiny punctate subcentimeter calcified presumed granuloma is noted within the right lobe of the liver, unchanged. The gallbladder is surgically absent.? PANCREAS: Unremarkable.? SPLEEN: Unremarkable. Incidental note is made of multiple subcentimeter calcified presumed granulomas, unchanged since 09/13/2020. ADRENAL GLANDS: Unremarkable.? KIDNEYS AND URETERS: The kidneys are normal in size, shape, and attenuation. No hydronephrosis, or hydroureter. Punctate 1 to 2 mm nonobstructing bilateral renal radiopaque calculi are noted (see the law images). No perinephric stranding. Resolution of previously documented hydroureteronephrosis of the right kidney and obstructing right distal ureteric calculus since the prior study dated 09/13/2020. BLADDER: Unremarkable.? GASTROINTESTINAL TRACT: Colonic diverticulosis related changes are noted within the large bowel without any CT features of superimposed acute diverticulitis. The appendix is well-visualized with its tip seen abutting the inferior pole of the right lobe of the liver.? ABDOMINAL WALL: No significant hernia is appreciated.? LYMPH NODES: Normal. VASCULAR: Unremarkable. PELVIC VISCERA: There is no pelvic mass present. No evidence of any free fluid and/or free air.? OSSEOUS STRUCTURES: Degenerative spondylosis mostly localized to L4-L5 and to a lesser extent L5-S1. Mild diffuse osteopenia.? CT/CT abdomen pelvis w con IMPRESSION: ? 1. Bilateral nonobstructing renal calculi. 2. Hepatomegaly, and diffuse hepatic hypodensity consistent with hepatic steatosis, unchanged. 3. Colonic diverticulosis without any CT features of superimposed acute diverticulitis. 4. Calcified hepatic and splenic presumed granulomas. Discharge Plan Discharge Clinical Impression: Bilateral renal stones, Hepatomegaly, Hepatic steatosis, Colon, diverticulosis, Granuloma of liver, Diarrhea, Abdominal pain, Adverse effect of antibiotic, Nausea & vomiting Patient Disposition: Home, Self-Care Instructions: Kidney Stones (ED), Non-Alcoholic Fatty Liver Disease (ED), Adverse Drug Reaction (ED) Prescriptions: New ibuprofen 800 mg tablet 800 mg PO Q8H PRN (Reason: pain) Qty: 14 RF: 0 ondansetron HCl [Zofran] 4 mg tablet 4 mg PO Q8H PRN (Reason: nausea and vomiting) Qty: 14 RF: 0 oxycodone 5 mg tablet 5 mg PO BID PRN (Reason: pain) Qty: 10 RF: 0 acetaminophen [Tylenol Extra Strength] 500 mg tablet 1,000 mg PO QID PRN (Reason: fever or pain) Qty: 14 RF: 0 No Action ibuprofen 800 mg tablet 800 mg PO Q8H Qty: 45 RF: 2 (DME) FreeStyle Precision Steffen Strips Strip See Rx Instructions .ROUTE .MEDSUPPLY Qty: 25 RF: 11 atorvastatin 20 mg tablet 20 mg PO DAILY 90 Days Qty: 90 RF: 2 cholecalciferol (vitamin D3) [Vitamin D3] 25 mcg (1,000 unit) capsule 25 mcg PO DAILY Qty: 90 RF: 2 pyridoxine (vitamin B6) 100 mg tablet 100 mg PO DAILY Qty: 90 RF: 1 metformin 1,000 mg tablet 1,000 mg PO BID Qty: 180 RF: 2 fenofibrate nanocrystallized 48 mg tablet 48 mg PO DAILY Qty: 90 RF: 3 telmisartan 20 mg tablet 20 mg PO DAILY 90 Days Qty: 90 RF: 2 cetirizine 10 mg tablet 10 mg PO DAILY PRN (Reason: allergy symptoms) 90 Days Qty: 90 RF: 2 vancomycin 125 mg capsule 125 mg PO DIRECTED 42 Days Qty: 23 RF: 0 alcohol swabs [Alcohol Prep Pads] Pads, Medicated 1 pad topical .One per day 90 Days Qty: 100 RF: 3 zolpidem 12.5 mg tablet,ext release multiphase 12.5 mg PO BEDTIME RF: 0 escitalopram oxalate 20 mg tablet 20 mg PO DAILY RF: 0 dnyjekhdhe-zjrgkiwybyszr-ggeg 50-325-40 mg capsule 1 cap PO Q8H PRN (Reason: pain) 7 Days Qty: 21 RF: 0 tramadol 50 mg tablet 50 mg PO BID PRN (Reason: pain) 10 Days Qty: 20 RF: 0 gabapentin 300 mg capsule 300 mg PO BID 30 Days Qty: 60 RF: 3 clonazepam 1 mg tablet 1 mg PO BID PRN (Reason: Anxiety) RF: 0 citalopram 20 mg tablet 20 mg PO DAILY RF: 0 omeprazole 20 mg capsule,delayed release(DR/EC) 20 mg PO DAILY Qty: 90 RF: 2 simethicone [Gas Relief (simethicone)] 125 mg tablet,chewable See Rx Instructions PO BID-QID PRN (Reason: abdominal distention) 30 Days Qty: 90 RF: 0 Referrals: Silvino Andujar PA-C [Primary Care Provider] - 2 days Print Language: Swedish [facility] Past Medical History Attestation statement: The following information was validated with the patient. 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 Type 2 diabetes mellitus Surgical History H/O hemorrhoidectomy H/O partial thyroidectomy (~2016) History of abdominoplasty History of bilateral breast reduction surgery (~2008) History of colonoscopy History of hysterectomy History of laparoscopic adjustable gastric banding (~2010) History of removal of laparoscopic gastric banding device (~2015) Hx laparoscopic cholecystectomy Hx of colonoscopy (~11/2016) Hx of endoscopy Hx of lithotripsy S/P anal fissurectomy S/P left oophorectomy Family History Family History Father Diabetes Hypertension Depression Mother Lung cancer Diabetes Mental health disorder Brother HIV (human immunodeficiency virus infection) Depression Diabetes Sister Hypertension Diabetes Mental health disorder Daughter Mental health disorder Son Mental health disorder Social History Social History Household Members: Children Housing: House Alcohol intake: never Patient Tobacco Use Status: Never used Tobacco e-Cigarette/Vaping Use: Never Used Second Hand Smoke Exposure: No Use of substances other than those prescribed or required for medical reasons: No Advance Directives: No Advance Directives Information Provided: Yes service: No Current occupational status: disabled
[2021-06-17] MEDS: 0.9 % Sodium Chloride 1,000 ML 999 ML IVCONT (13:47)
[2021-06-17 13:49] VITALS: RESP 18
[2021-06-17] MEDS: ondansetron HCL 4 MG/2 ML VIAL IVPUSH (13:49)
[2021-06-17] MEDS: Morphine Sulfate 4 MG/ML CARTRIDGE IVPUSH ×2 (13:49→16:34)
[2021-06-17 13:53] LABS: MANUAL DIFF FLAG NO
[2021-06-17 13:57] LABS: Glucose Urine UA NEG (NEG); Leukocyte Esterase Urine NEG (NEG); Nitrite Urine NEG (NEG); Urine Blood NEG (NEG); Urine Ketones NEG (NEG); Urine Protein NEG (NEG-TRACE)
[2021-06-17 13:59] LABS: Basophils Absolute Auto 0.1 X10*3/uL (0.0-0.2); Basophils Percent Auto 0.8 % (0-2); Eosinophils Absolute Auto 0.1 X10*3/uL (0.0-0.4); Eosinophils Percent Auto 2.1 % (0-4); Hematocrit 42.1 % (37-47); Hemoglobin 14.3 g/dl (12.0-16.0); Imm Gran Abs Auto 0.02 X10*3/uL (0.00-0.03); Imm Gran Pct Auto 0.3 % (0.0-0.4); Lymphocytes Absolute Auto 2.2 X10*3/uL (1.2-4.9); Lymphocytes Percent Auto 35.4 % (20-40); Mean Corpuscular Hemoglobin 28.4 pg (27.0-33.0); Mean Corpuscular Volume 83.7 fL (80-98); Mean Platelet Volume 8.8 fL (9.4-12.3); Monocytes Absolute Auto 0.5 X10*3/uL (0.1-1.2); Monocytes Percent Auto 7.9 % (2-11); Neutrophils Absolute Auto 3.4 X10*3/uL (2.0-8.3); Neutrophils Percent Auto 53.5 % (45-73); Platelet Count 315 X10*3/uL (160-400); Red Blood Count 5.03 X10*6/uL (4.20-5.50); Red Cell Distribution Width 12.1 % (11.0-16.0); White Blood Count 6.3 X10*3/uL (4.8-10.8)
[2021-06-17 14:01] LABS: Appearance Urine CLEAR; Color Urine YELLOW
[2021-06-17 14:06] LABS: Prothrombin Time 11.6 SEC (9.9-13.0)
[2021-06-17 14:27] LABS: C Reactive Protein 0.42 mg/dL (< or = 0.50); Magnesium 2.2 mg/dL (1.6-2.6)
[2021-06-17 14:28] LABS: Alanine Aminotransferase 41 U/L (0-31); Albumin Level 4.9 g/dL (3.5-5.0); Alkaline Phosphatase 66 U/L (39-117); Anion Gap 15 (12-20); Aspartate Amino Transferase 24 U/L (5-31); Bilirubin Total 0.7 mg/dL (0.0-1.0); Blood Urea Nitrogen 12 mg/dL (9-16); Calcium 9.7 mg/dL (8.4-10.2); Carbon Dioxide 25 mmol/L (22-29); Chloride 103 mmol/L (96-108); Creatinine Clr Calc Pharmacy 86.4; Estimated Glomerular Filt Rate > 60; Glucose Random 116 mg/dL (60-115); Lipase 63 U/L (8-78); Potassium 4.4 mmol/L (3.3-5.1); Sodium 139 mmol/L (135-145); Total Protein 7.8 g/dL (6.5-8.0)
[2021-06-17 14:42] LABS: Erythrocyte Sedimentation Rate 6 MM/HR (0-20)
[2021-06-17 14:46] LABS: CDiff Gene PCR NEGATIVE (Negative)
[2021-06-17 14:48] LABS: Influenza A PCR NEGATIVE (Negative); Influenza B PCR NEGATIVE (Negative); Resp Syncy Virus RNA Qual PCR NEGATIVE (Negative); SARS COV2 PCR INHOUSE NEGATIVE (Negative)
[2021-06-17] MEDS: iohexoL 350 MG/ML 100 ML INFUS..BTL IV (16:09)
[2021-06-17 16:34] VITALS: RESP 16
== END 2021-06-17 17:12 | disposition home or self-care (01) ==
PROVIDERS: Physician Assistant Medical; Emergency Provider Internal Medicine; PCP Physician Assistant
DX: R11.2 Nausea with vomiting, unspecified (principal); T36.8X5A Adverse effect of other systemic antibiotics, initial encounter; Y92.9 Unspecified place or not applicable; K57.90 Diverticulosis of intestine, part unspecified, without perforation or abscess without bleeding; N20.0 Calculus of kidney; K75.3 Granulomatous hepatitis, not elsewhere classified; R16.0 Hepatomegaly, not elsewhere classified; K76.0 Fatty (change of) liver, not elsewhere classified; R10.9 Unspecified abdominal pain; Z20.822 Contact with and (suspected) exposure to COVID-19; E11.9 Type 2 diabetes mellitus without complications; I10 Essential (primary) hypertension; E78.00 Pure hypercholesterolemia, unspecified; Z79.02 Long term (current) use of antithrombotics/antiplatelets; Z79.899 Other long term (current) drug therapy
CPT/HCPCS: 0241U; 36415; 74177; 80053; 81003; 83690; 83735; 85025; 85610; 85652; 86140; 87493; 96361; 96374; 96375; 96376; 99284; J2270; J2405; Q9967

== ENCOUNTER 2021-07-04 12:44 | Outpatient (REF) | payer OTHER, SELFPAY ==
[2021-07-04 14:34] LABS: CDiff Gene PCR NEGATIVE (Negative)
== END 2021-07-04 12:45 | disposition home or self-care (01) ==
LOC: HO.LNP 12:44
PROVIDERS: Visit Provider Physician Assistant
DX: A04.72 Enterocolitis due to Clostridium difficile, not specified as recurrent (principal); R19.7 Diarrhea, unspecified
CPT/HCPCS: 87493

== ENCOUNTER 2021-07-11 10:14 | Outpatient (REF) | payer OTHER, SELFPAY ==
--- NOTE | ~2021-07-11 | US_ITS ---
EXAMINATION: US RETROPERITONEAL LIMITED (RENAL ONLY) CLINICAL INFORMATION: Calculus of kidney. COMPARISON: CT abdomen and pelvis 06/17/2021. Ultrasound renal 11/07/2020. TECHNIQUE: Real-time imaging of the kidneys. FINDINGS: RIGHT KIDNEY: 10.3 x 5.2 x 5.4 cm (SAG x AP x TRV). The kidney is normal in size, contour, and echogenicity. Renal cortical thickness is normal. No calculi or focal parenchymal lesions. No hydronephrosis. LEFT KIDNEY: 11.4 x 6.0 x 5.8 cm (SAG x AP x TRV). The kidney is normal in size, contour, and echogenicity. Renal cortical thickness is normal. No calculi or focal parenchymal lesions. No hydronephrosis. Small bilateral renal stones and cysts seen by CT scan are not appreciated by ultrasound. US/US renal BI IMPRESSION: Unremarkable exam.
== END 2021-07-11 10:15 | disposition home or self-care (01) ==
LOC: HO.HMGCX 10:14
PROVIDERS: PCP Physician Assistant; Visit Provider Urology
DX: N20.0 Calculus of kidney (principal)
CPT/HCPCS: 76775

== ENCOUNTER → 2021-07-24 11:20 | Outpatient (BNVA) | payer OTHER, SELFPAY | PROVIDERS: PCP Physician Assistant; Visit Provider Nurse Practitioner Gerontology | CPT/HCPCS: Q3014 ==

== ENCOUNTER → 2021-07-31 08:12 | Outpatient (REF) | payer OTHER, SELFPAY ==
--- NOTE | ~2021-07-31 | NM_ITS ---
EXAMINATION: RADIONUCLIDE SOLID FOOD GASTRIC EMPTYING 4-HOUR STUDY CLINICAL INFORMATION: Abdominal pain. COMPARISON: No previous gastric emptying study is available for comparison. TECHNIQUE: A standard meal consisting of 4 oz of Egg Beaters brand tagged with 1.0 mCi Tc-99m Sulfur Colloid, 8 oz water and 2 slices of toast with jelly was administered orally to the patient. Images were obtained using a dual head gamma camera in the anterior and posterior projections over of the stomach immediately post ingestion and at hourly intervals up to 3 hours post ingestion. Images were not obtained at 4 hours due to the minimal retention at 3 hours. The anterior and posterior counts at each time interval were averaged using the geometric mean and expressed as percentage of the immediate post ingestion counts. FINDINGS: There is good visualization of activity in the stomach immediately post ingestion. As the study progresses, there is good clearance of activity from the stomach and visualization of progressively increasing small bowel activity. By the end of the study, there is almost no retention noted in the stomach. Retention in the stomach at each time interval was: 1 hour 18% (normal 37%-90%) 2 hours 2% (normal 30%-60%) 3 hours 2% 4 hours (Not Obtained) (normal 0%-10%) NM/NM gastric emptying study IMPRESSION: No abnormal retention of solid food is noted. Gastric emptying is more rapid than normal, a finding of uncertain clinical significance.
== END ==
LOC: HO.NUCMED 08:12
PROVIDERS: PCP Physician Assistant; Visit Provider Internal Medicine Gastroenterology
DX: R10.9 Unspecified abdominal pain (principal)
CPT/HCPCS: 78264; A9541

== ENCOUNTER 2021-07-31 08:51 | Outpatient (REF) | payer OTHER, SELFPAY ==
[2021-07-31 09:27] LABS: Hemoglobin 12.8 g/dl (12.0-16.0); Mean Corpuscular HGB Conc 32.8 g/dl (31.0-35.0); Mean Corpuscular Volume 85.3 fL (80-98); Mean Platelet Volume 8.9 fL (9.4-12.3); Platelet Count 288 X10*3/uL (160-400); Red Blood Count 4.57 X10*6/uL (4.20-5.50); Red Cell Distribution Width 12.1 % (11.0-16.0); White Blood Count 5.4 X10*3/uL (4.8-10.8)
[2021-07-31 09:47] LABS: Estimated Average Glucose 137 mg/dL; Hemoglobin A1c % 6.4 %
[2021-07-31 09:55] LABS: Alanine Aminotransferase 38 U/L (0-31); Albumin Level 4.3 g/dL (3.5-5.0); Alkaline Phosphatase 41 U/L (39-117); Anion Gap 13 (12-20); Aspartate Amino Transferase 18 U/L (5-31); Bilirubin Total 0.4 mg/dL (0.0-1.0); Blood Urea Nitrogen 14 mg/dL (9-16); Calcium 9.4 mg/dL (8.4-10.2); Carbon Dioxide 24 mmol/L (22-29); Chloride 107 mmol/L (96-108); Cholesterol 193 mg/dL; Estimated Glomerular Filt Rate > 60; Glucose Fasting 140 mg/dL (60-99); HDL Cholesterol 62 mg/dL; LDL Cholesterol Calculated 89 mg/dl; Sodium 140 mmol/L (135-145); Total Protein 6.7 g/dL (6.5-8.0); Triglycerides 214 mg/dL
[2021-07-31 10:18] LABS: TSH reflex Free T4 1.28 uIU/mL (0.32-4.0)
[2021-07-31 10:19] LABS: Creatinine Urine 182.67 mg/dL; Microalbum/Creatinine Ratio Ur 4.9 ug/mg cr
[2021-08-01 10:43] LABS: LDL Cholesterol Direct 103 mg/dL (<100)
== END 2021-07-31 08:52 | disposition home or self-care (01) ==
LOC: HO.LAB 08:51
PROVIDERS: Absent Provider Physician Assistant; PCP Physician Assistant; Visit Provider Nurse Practitioner Gerontology
DX: Z20.822 Contact with and (suspected) exposure to COVID-19 (principal); E11.9 Type 2 diabetes mellitus without complications; I10 Essential (primary) hypertension; E78.2 Mixed hyperlipidemia; Z79.4 Long term (current) use of insulin
CPT/HCPCS: 36415; 80053; 80061; 82043; 83036; 83721; 84443; 85027; U0003; U0005

== ENCOUNTER 2021-08-05 13:31 | Outpatient (REF) | payer OTHER, SELFPAY | END 2021-08-05 13:32 | disposition home or self-care (01) | LOC: HO.LNP 13:31 | PROVIDERS: Visit Provider Physician Assistant Medical | DX: Z13.89 Encounter for screening for other disorder (principal) | CPT/HCPCS: 87071 ==

== ENCOUNTER 2021-09-08 11:31 | Outpatient (REF) | payer OTHER, SELFPAY | END 2021-09-08 11:32 | disposition home or self-care (01) | LOC: HO.LNP 11:31 | PROVIDERS: Visit Provider Internal Medicine | DX: R30.0 Dysuria (principal) | CPT/HCPCS: 87086 ==

== ENCOUNTER 2021-11-01 10:36 | Outpatient (REF) | payer OTHER, SELFPAY ==
--- NOTE | ~2021-11-01 | XR_ITS ---
EXAMINATION: XR CHEST CLINICAL INFORMATION: Mild intermittent asthma COMPARISON: Prior chest imaging studies with the last chest CT of 5 05/22/2021 and chest x-ray of 11/12/2018 TECHNIQUE: 2 views of the chest were obtained. FINDINGS: No significant abnormality is noted involving the heart, lungs, mediastinum, bony thorax or soft tissues. Findings indicating postsurgical changes of right hemithyroidectomy are again noted. XR/XR chest 2V IMPRESSION: No radiographic evidence of pneumonia. No acute pulmonary process. No significant interval change is noted compared to last chest x-ray.
[2021-11-01 12:06] LABS: Hematocrit 42.3 % (37.0-47.0); Hemoglobin 13.7 g/dl (12.0-16.0); Mean Corpuscular HGB Conc 32.4 g/dl (31.0-35.0); Mean Corpuscular Hemoglobin 28.1 pg (27.0-33.0); Mean Corpuscular Volume 86.9 fL (80.0-98.0); Mean Platelet Volume 9.1 fL (9.4-12.3); Platelet Count 277 X10*3/uL (160-400); Red Blood Count 4.87 X10*6/uL (4.20-5.50); Red Cell Distribution Width 12.3 % (11.0-16.0); White Blood Count 5.1 X10*3/uL (4.8-10.8)
[2021-11-01 12:12] LABS: Estimated Average Glucose 143 mg/dL; Hemoglobin A1c % 6.6 %
[2021-11-01 12:30] LABS: Alanine Aminotransferase 62 U/L (0-31); Albumin Level 4.7 g/dL (3.5-5.0); Alkaline Phosphatase 43 U/L (39-117); Anion Gap 10 (12-20); Aspartate Amino Transferase 24 U/L (5-31); Bilirubin Total 0.8 mg/dL (0.0-1.0); Blood Urea Nitrogen 15 mg/dL (9-16); Carbon Dioxide 28 mmol/L (22-29); Chloride 107 mmol/L (96-108); Estimated Glomerular Filt Rate > 60; Glucose Fasting 136 mg/dL (60-99); Potassium 4.4 mmol/L (3.3-5.1); Sodium 141 mmol/L (135-145); Total Protein 7.5 g/dL (6.5-8.0)
[2021-11-01 12:51] LABS: TSH reflex Free T4 0.95 uIU/mL (0.32-4.0)
[2021-11-01 12:57] LABS: Creatinine Urine 206.42 mg/dL; Microalbum/Creatinine Ratio Ur 5.8 ug/mg cr
[2021-11-01 12:57] LABS: Syphilis Screen Nonreactive (Nonreactive)
[2021-11-02 05:37] LABS: HBc Num1 0.05 S/CO (0.00-0.79); HIV AB/AG Nonreactive (Nonreactive); HIV Num 1 0.08 S/CO (0.00-0.99); Hepatitis B Core Antibody Nonreactive (Nonreactive); ~Hepatitis B Surface Antibody NONREACTIVE (Nonreactive)
[2021-11-02 05:42] LABS: Hepatitis B Surface Antigen Negative (Negative); ~HepC Num1 0.08 S/CO (0.00-0.79); ~Hepatitis C Antibody Nonreactive (Nonreactive)
[2021-11-08 17:41] LABS: Chlamydia Pneumoniae IgA <1:16 titer (<1:16); Chlamydia Pneumoniae IgG <1:64 titer (<1:64); Chlamydia Pneumoniae IgM <1:10 titer (<1:10); Chlamydia Psittaci IgA <1:16 titer (<1:16); Chlamydia Psittaci IgG <1:64 titer (<1:64); Chlamydia Psittaci IgM <1:10 titer (<1:10); Chlamydia Trachomatis IgA <1:16 titer (<1:16); Chlamydia Trachomatis IgG <1:64 titer (<1:64); Chlamydia Trachomatis IgM <1:10 titer (<1:10)
== END 2021-11-01 10:37 | disposition home or self-care (01) ==
LOC: HO.LAB 10:36
PROVIDERS: Visit Provider Physician Assistant
DX: Z11.3 Encounter for screening for infections with a predominantly sexual mode of transmission (principal); Z11.4 Encounter for screening for human immunodeficiency virus [HIV]; E11.9 Type 2 diabetes mellitus without complications; J45.20 Mild intermittent asthma, uncomplicated; I10 Essential (primary) hypertension; Z79.4 Long term (current) use of insulin
CPT/HCPCS: 36415; 71046; 80053; 82043; 83036; 84443; 85027; 86631; 86632; 86704; 86706; 86780; 86803; 87340; 87389

== ENCOUNTER → 2021-11-02 11:16 | Outpatient (BNVA) | payer OTHER, SELFPAY | PROVIDERS: Referring Provider Physician Assistant; Visit Provider Internal Medicine Gastroenterology | DX: Z12.11 Encounter for screening for malignant neoplasm of colon (principal); R14.0 Abdominal distension (gaseous); R10.9 Unspecified abdominal pain; K29.70 Gastritis, unspecified, without bleeding; R19.7 Diarrhea, unspecified; K22.2 Esophageal obstruction; A49.8 Other bacterial infections of unspecified site; R13.14 Dysphagia, pharyngoesophageal phase; R19.6 Halitosis | CPT/HCPCS: 99212 ==

== ENCOUNTER → 2021-12-05 09:46 | Outpatient (BNVA) | payer OTHER, SELFPAY | PROVIDERS: PCP Physician Assistant; Visit Provider Nurse Practitioner Gerontology | DX: E11.9 Type 2 diabetes mellitus without complications (principal); E78.5 Hyperlipidemia, unspecified; I10 Essential (primary) hypertension; E66.9 Obesity, unspecified; Z68.31 Body mass index [BMI] 31.0-31.9, adult; Z79.4 Long term (current) use of insulin | CPT/HCPCS: 82947; 99212 ==

== ENCOUNTER 2022-02-06 10:00 | Outpatient (REF) | payer OTHER, SELFPAY ==
--- NOTE | ~2022-02-06 | MM_ITS ---
EXAMINATION: MM SCREENING DIGITAL BREAST TOMOSYNTHESIS, BILATERAL CLINICAL INFORMATION: Screening. Asymptomatic. The lifetime risk of breast cancer based on the Tyrer-Cuzick Model is 5%. COMPARISON: Mammography: 02/03/2021, 06/22/2019, 06/16/2018 TECHNIQUE: Digital breast tomosynthesis is performed in both the craniocaudal and mediolateral oblique views along with computer-aided detection (CAD). Synthesized 2D images are generated from the tomosynthesis. FINDINGS: There are scattered areas of fibroglandular density (ACR BI-RADS breast composition Category b). There are no significant masses, abnormal calcifications, or other abnormalities. Parenchymal pattern is similar to prior studies. The axilla and skin contours are unremarkable. No significant changes. MM/MM tomosynthesis screening BI IMPRESSION: No mammographic evidence of malignancy. ASSESSMENT: BI-RADS 1: Negative RECOMMENDATION: Routine annual mammography screening. This patient's information was entered into a reminder system with a target due date for their next mammogram.
== END 2022-02-06 10:01 | disposition home or self-care (01) ==
LOC: HO.MAMMO 10:00
PROVIDERS: Visit Provider Physician Assistant
DX: Z12.31 Encounter for screening mammogram for malignant neoplasm of breast (principal)
CPT/HCPCS: 77063; 77067

== ENCOUNTER 2022-02-07 11:29 | Outpatient (REF) | payer OTHER, SELFPAY ==
--- NOTE | ~2022-02-07 | XR_ITS ---
EXAMINATION: XR CHEST CLINICAL INFORMATION: Asthma COMPARISON: Previous chest x-rays most recent October 2021 TECHNIQUE: 2 views of the chest were obtained. FINDINGS: The cardiac and mediastinal contours are stable. There may be small calcified left pulmonary nodules in the perihilar region that appear unchanged. The lungs are otherwise clear. There is no pleural effusion or pneumothorax. There are degenerative changes of the spine. There are surgical clips over the right lower neck. XR/XR chest 2V IMPRESSION: No evidence for acute disease in the chest.
[2022-02-07 11:48] LABS: MANUAL DIFF FLAG NO
[2022-02-07 12:05] LABS: Basophils Percent Auto 0.5 % (0-2); Eosinophils Absolute Auto 0.2 X10*3/uL (0.0-0.4); Eosinophils Percent Auto 2.1 % (0-4); Hemoglobin 13.7 g/dl (12.0-16.0); Imm Gran Abs Auto 0.06 X10*3/uL (0.00-0.03); Imm Gran Pct Auto 0.8 % (0.0-0.4); Lymphocytes Percent Auto 53.1 % (20-40); Mean Corpuscular HGB Conc 32.6 g/dl (31.0-35.0); Mean Corpuscular Hemoglobin 28.2 pg (27.0-33.0); Mean Corpuscular Volume 86.6 fL (80.0-98.0); Mean Platelet Volume 8.7 fL (9.4-12.3); Monocytes Absolute Auto 0.6 X10*3/uL (0.1-1.2); Monocytes Percent Auto 7.8 % (2-11); Neutrophils Absolute Auto 2.7 x10*3/uL (2.0-8.3); Neutrophils Percent Auto 35.7 % (45-73); Platelet Count 284 X10*3/uL (160-400); Red Blood Count 4.85 X10*6/uL (4.20-5.50); Red Cell Distribution Width 12.4 % (11.0-16.0); White Blood Count 7.6 X10*3/uL (4.8-10.8)
[2022-02-07 12:55] LABS: Alanine Aminotransferase 29 U/L (0-31); Albumin Level 4.4 g/dL (3.5-5.0); Alkaline Phosphatase 40 U/L (39-117); Anion Gap 16 (12-20); Aspartate Amino Transferase 14 U/L (5-31); Bilirubin Total 0.9 mg/dL (0.0-1.0); Blood Urea Nitrogen 25 mg/dL (9-16); Calcium 9.9 mg/dL (8.4-10.2); Carbon Dioxide 24 mmol/L (22-29); Chloride 105 mmol/L (96-108); Estimated Glomerular Filt Rate 60; Glucose Random 119 mg/dL (60-115); Potassium 4.2 mmol/L (3.3-5.1); Sodium 141 mmol/L (135-145)
== END 2022-02-07 11:30 | disposition home or self-care (01) ==
LOC: HO.XRAY 11:29
PROVIDERS: PCP Physician Assistant; Visit Provider Nurse Practitioner Acute Care
DX: J45.901 Unspecified asthma with (acute) exacerbation (principal); R05.9 Cough, unspecified
CPT/HCPCS: 36415; 71046; 80053; 85025

== ENCOUNTER → 2022-02-08 09:14 | Outpatient (BNVA) | payer OTHER, SELFPAY | PROVIDERS: PCP Physician Assistant; Visit Provider Internal Medicine Gastroenterology | DX: K62.89 Other specified diseases of anus and rectum (principal); K64.9 Unspecified hemorrhoids; A04.72 Enterocolitis due to Clostridium difficile, not specified as recurrent; R13.14 Dysphagia, pharyngoesophageal phase; R14.0 Abdominal distension (gaseous); K22.2 Esophageal obstruction; Z86.010 Personal history of colon polyps | CPT/HCPCS: Q3014 ==

== ENCOUNTER 2022-02-26 10:14 | Outpatient (REF) | payer OTHER, SELFPAY ==
--- NOTE | ~2022-02-26 | XR_ITS ---
EXAMINATION: XR CHEST CLINICAL INFORMATION: Asthma COMPARISON: Previous chest x-ray most recent January 2022 TECHNIQUE: 2 views of the chest were obtained. FINDINGS: The cardiac and mediastinal contours are stable. The lungs are clear. There is no pleural effusion or pneumothorax. There are surgical clips in the right lower neck. There are degenerative changes of the spine. XR/XR chest 2V IMPRESSION: No evidence for acute disease in the chest.
--- NOTE | 2022-02-26 10:37 | ECG_ITS ---
Test Reason : PREOP Blood Pressure : / mmHG Vent. Rate : 060 BPM Atrial Rate : 060 BPM P-R Int : 124 ms QRS Dur : 086 ms QT Int : 434 ms P-R-T Axes : 045 035 000 degrees QTc Int : 434 ms Normal sinus rhythm Nonspecific T wave abnormality Abnormal ECG When compared with ECG of 05-AUG-2018 11:14, No significant change was found Referred By: Silvino Andujar Electronically Signed By:SAJI WILSON MD
[2022-02-26 10:55] LABS: Mean Corpuscular HGB Conc 32.5 g/dl (31.0-35.0); Mean Corpuscular Hemoglobin 28.1 pg (27.0-33.0); Mean Corpuscular Volume 86.6 fL (80.0-98.0); Mean Platelet Volume 9.1 fL (9.4-12.3); Platelet Count 227 X10*3/uL (160-400); Red Blood Count 4.62 X10*6/uL (4.20-5.50); Red Cell Distribution Width 12.6 % (11.0-16.0); White Blood Count 4.3 X10*3/uL (4.8-10.8)
[2022-02-26 10:59] LABS: Appearance Urine CLEAR; Color Urine YELLOW; Glucose Urine UA NEG (NEG); Leukocyte Esterase Urine NEG (NEG); Nitrite Urine NEG (NEG); PH 5.5 (5.0-8.0); Specific Gravity - Urine >= 1.030 (1.005-1.025); Urine Blood NEG (NEG); Urine Ketones NEG (NEG); Urine Protein NEG (NEG-TRACE)
[2022-02-26 11:09] LABS: INTERNATIONAL NORM RATIO 0.9 (0.9-1.1); Prothrombin Time 10.5 SEC (9.9-13.0)
[2022-02-26 11:18] LABS: Alanine Aminotransferase 34 U/L (0-31); Albumin Level 4.3 g/dL (3.5-5.0); Alkaline Phosphatase 35 U/L (39-117); Anion Gap 14 (12-20); Aspartate Amino Transferase 16 U/L (5-31); Bilirubin Direct 0.3 mg/dL (0.0-0.5); Blood Urea Nitrogen 16 mg/dL (9-16); Calcium 9.4 mg/dL (8.4-10.2); Carbon Dioxide 24 mmol/L (22-29); Chloride 106 mmol/L (96-108); Estimated Glomerular Filt Rate > 60; Glucose Random 137 mg/dL (60-115); Potassium 4.3 mmol/L (3.3-5.1); Sodium 140 mmol/L (135-145); Total Protein 6.9 g/dL (6.5-8.0)
[2022-02-26 11:27] LABS: HCG Quantitative < 2 mIU/mL
[2022-02-26 11:33] LABS: HIV AB/AG Nonreactive (Nonreactive); HIV Num 1 0.05 S/CO (0.00-0.99)
== END 2022-02-26 10:15 | disposition home or self-care (01) ==
LOC: HO.XRAY 10:14
PROVIDERS: Absent Provider Physician Assistant; PCP Physician Assistant; Visit Provider Nurse Practitioner Acute Care
DX: Z01.818 Encounter for other preprocedural examination (principal); Z11.4 Encounter for screening for human immunodeficiency virus [HIV]; R30.0 Dysuria; J45.909 Unspecified asthma, uncomplicated
CPT/HCPCS: 36415; 71046; 80053; 81003; 82248; 84702; 85027; 85610; 87389; 93005

== ENCOUNTER → 2022-04-02 12:49 | Outpatient (REF) | payer OTHER, SELFPAY | LOC: HO.SL 12:49 | PROVIDERS: PCP Physician Assistant; Visit Provider Nurse Practitioner Family | DX: R40.0 Somnolence (principal); R53.83 Other fatigue | CPT/HCPCS: 95806 ==

== ENCOUNTER 2022-04-04 11:26 | Outpatient (REF) | payer OTHER, SELFPAY ==
[2022-04-04 11:53] LABS: MANUAL DIFF FLAG NO
[2022-04-04 12:03] LABS: Basophils Percent Auto 0.8 % (0-2); Eosinophils Absolute Auto 0.3 X10*3/uL (0.0-0.4); Eosinophils Percent Auto 7.4 % (0-4); Hematocrit 27.3 % (37.0-47.0); Hemoglobin 8.7 g/dl (12.0-16.0); Imm Gran Abs Auto 0.01 X10*3/uL (0.00-0.03); Imm Gran Pct Auto 0.3 % (0.0-0.4); Lymphocytes Absolute Auto 1.2 X10*3/uL (1.2-4.9); Mean Corpuscular HGB Conc 31.9 g/dl (31.0-35.0); Mean Corpuscular Hemoglobin 29.3 pg (27.0-33.0); Mean Corpuscular Volume 91.9 fL (80.0-98.0); Mean Platelet Volume 8.6 fL (9.4-12.3); Monocytes Absolute Auto 0.4 X10*3/uL (0.1-1.2); Monocytes Percent Auto 9.7 % (2-11); Neutrophils Percent Auto 51.8 % (45-73); Platelet Count 400 X10*3/uL (160-400); Red Blood Count 2.97 X10*6/uL (4.20-5.50); Red Cell Distribution Width 15.7 % (11.0-16.0); White Blood Count 3.9 X10*3/uL (4.8-10.8)
[2022-04-04 12:14] LABS: Estimated Average Glucose 114 mg/dL; Hemoglobin A1c % 5.6 %
[2022-04-04 12:45] LABS: Alanine Aminotransferase 23 U/L (0-31); Albumin Level 4.3 g/dL (3.5-5.0); Alkaline Phosphatase 37 U/L (39-117); Anion Gap 13 (12-20); Aspartate Amino Transferase 16 U/L (5-31); Bilirubin Total 0.7 mg/dL (0.0-1.0); Blood Urea Nitrogen 16 mg/dL (9-16); Calcium 9.9 mg/dL (8.4-10.2); Carbon Dioxide 26 mmol/L (22-29); Chloride 107 mmol/L (96-108); Cholesterol 158 mg/dL; Estimated Glomerular Filt Rate > 60; Glucose Fasting 140 mg/dL (60-99); HDL Cholesterol 53 mg/dL; LDL Cholesterol Calculated 71 mg/dl; Potassium 4.3 mmol/L (3.3-5.1); Sodium 142 mmol/L (135-145); Total Protein 6.7 g/dL (6.5-8.0); Triglycerides 171 mg/dL
[2022-04-04 12:48] LABS: Erythrocyte Sedimentation Rate 20 MM/HR (0-20)
[2022-04-04 13:00] LABS: TSH reflex Free T4 0.78 uIU/mL (0.32-4.0)
[2022-04-04 14:33] LABS: Creatinine Urine 74.88 mg/dL; Microalbumin Urine < 5.0 mg/L
[2022-04-07 09:57] LABS: TS Negative Control Passed; TS Panel A 1; TS Panel B 0; TS Positive Control Passed; TSpotTB Negative (Negative)
[2022-04-09 07:17] LABS: Angiotensin Converting Enzyme 18 U/L (9-67)
== END 2022-04-04 11:27 | disposition home or self-care (01) ==
LOC: HO.LAB 11:26
PROVIDERS: PCP Physician Assistant; Visit Provider Hospitalist
DX: Z11.1 Encounter for screening for respiratory tuberculosis (principal); J45.40 Moderate persistent asthma, uncomplicated; R91.8 Other nonspecific abnormal finding of lung field; G47.33 Obstructive sleep apnea (adult) (pediatric); E78.2 Mixed hyperlipidemia; E11.9 Type 2 diabetes mellitus without complications; I10 Essential (primary) hypertension; Z79.4 Long term (current) use of insulin
CPT/HCPCS: 36415; 80053; 80061; 82043; 82164; 82785; 83036; 84443; 85025; 85652; 86003; 86481; 99202

== ENCOUNTER 2022-04-13 10:27 | Outpatient (REF) | payer OTHER, SELFPAY ==
--- NOTE | ~2022-04-13 | CT_ITS ---
EXAMINATION: CT CHEST WITHOUT CONTRAST CLINICAL INFORMATION: Pulmonary nodules. COMPARISON: Chest 02/26/2022. TECHNIQUE: Multidetector volumetric CT imaging of the chest was done. Axial MIP volume rendering provided. Sagittal and coronal reformatted images were obtained. This CT examination was performed using dose optimization techniques as appropriate, variously including the following: *Automated exposure control *Adjustment of mA and/or kV according to patient size (this includes techniques or standardized protocols for targeted exams where dose is matched to indication/reason for exam; i.e. extremities or head) *Use of iterative reconstruction technique DLP: 221 mGy-cm. 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 LUNGS: The lungs are well expanded and clear acute pneumonic process. There is a 4 mm calcified nodule in the lingula on axial image 246/7. No additional calcified or noncalcified nodules seen. There is no acute consolidation. MEDIASTINUM: There are calcified lymph nodes in the subcarinal region and left hilum. The left thyroid lobe is normal. There are calcification or yuly in the right thyroid lobe likely from previous resection. Central trachea and the bronchi is widely patent. Heart size and the great vessels are normal caliber. There is no pericardial effusion. PLEURA: There is no pleural effusion. No pleural mass or thickening. AXILLA: No lymphadenopathy. UPPER ABDOMEN: Unremarkable. OSSEOUS STRUCTURES: There is mild spondylosis throughout the dorsal spine. No lytic or sclerotic process seen. CT/CT chest wo con IMPRESSION: 4 mm calcified nodule in lingula. Unremarkable rest of CT chest. Fleischner guidelines were followed.
== END 2022-04-13 10:28 | disposition home or self-care (01) ==
LOC: HO.CT 10:27
PROVIDERS: Absent Provider Hospitalist; Visit Provider Nurse Practitioner Acute Care
DX: R91.8 Other nonspecific abnormal finding of lung field (principal)
CPT/HCPCS: 71250

== ENCOUNTER 2022-04-16 08:48 | Outpatient (RCR) | payer OTHER, SELFPAY | END 2022-05-22 10:17 | disposition home or self-care (01) | LOC: HO.OT 08:48 | PROVIDERS: PCP Physician Assistant; Visit Provider Physician Assistant | DX: R19.8 Other specified symptoms and signs involving the digestive system and abdomen (principal) | CPT/HCPCS: 97140; 97166 ==

== ENCOUNTER 2022-05-10 11:21 | Outpatient (REF) | payer OTHER, SELFPAY ==
--- NOTE | ~2022-05-10 | US_ITS ---
EXAMINATION: US ABDOMEN LIMITED CLINICAL INFORMATION: Status post liposuction February 2022. Patient feels fullness over the left upper quadrant. COMPARISON: Ultrasound renal 07/11/2021. CT abdomen pelvis 06/17/2021. Ultrasound renal 11/07/2020. XR KUB 09/18/2019. TECHNIQUE: Real-time imaging of the right upper quadrant abdominal viscera. FINDINGS: There is no visible hematoma, mass or fluid collection along the abdominal wall in the left upper quadrant or the right upper quadrant. US/US abdomen limited IMPRESSION: Unremarkable limited ultrasound of upper abdomen.
== END 2022-05-10 11:22 | disposition home or self-care (01) ==
LOC: HO.HMGCX 11:21
PROVIDERS: Visit Provider Physician Assistant
DX: R19.8 Other specified symptoms and signs involving the digestive system and abdomen (principal)
CPT/HCPCS: 76705

== ENCOUNTER 2022-05-25 09:51 | Outpatient (REF) | payer OTHER, SELFPAY ==
--- NOTE | 2022-05-25 11:35 | PFT_ITS ---
FLOWS: FEV1 100% of predicted at 2.85 L. FVC 93% of predicted at 3.30 L. FEV1 to FVC ratio of 0.86. No bronchodilator response except in small to medium airways. LUNG VOLUMES: Total lung capacity 89% of predicted at 4.80 L. Residual volume 61% of predicted at 1.4 L. Slow vital capacity 106% of predicted at 3.55 L. Expiratory reserve volume 17% of predicted at 0.18 L. Diffusion capacity is mildly decreased. IMPRESSION: No obstructive or restrictive ventilatory defect. No bronchodilator response except in small to medium airways. Decreased expiratory reserve volume suggests extrathoracic restriction likely secondary to abdominal obesity. Decreased diffusion capacity suggests emphysema. Darrick Villaseñor MD AP/MODL / [id number]
== END 2022-05-25 09:52 | disposition home or self-care (01) ==
LOC: HO.RESP 09:51
PROVIDERS: PCP Physician Assistant; Visit Provider Hospitalist
DX: J45.40 Moderate persistent asthma, uncomplicated (principal)
CPT/HCPCS: 94060; 94727; 94729; 99212

== ENCOUNTER 2022-06-11 11:31 | Outpatient (REF) | payer OTHER, SELFPAY ==
--- NOTE | ~2022-06-11 | XR_ITS ---
EXAMINATION: XR ABDOMEN KUB CLINICAL INDICATION: Renal calculus. COMPARISON: Renal ultrasound from 07/11/2021. Abdomen CT from 06/17/2021. TECHNIQUE: AP view of the abdomen. FINDINGS: Cholecystectomy clips in the right upper quadrant of the abdomen. Calcified granulomas of the spleen. No evidence of renal, ureteral or bladder calculi. A few phleboliths are observed within the lower pelvis. Bowel gas pattern is normal. XR/XR KUB IMPRESSION: No evidence of renal calculi.
[2022-06-11 12:05] LABS: Hematocrit 42.7 % (37.0-47.0); Hemoglobin 14.2 g/dl (12.0-16.0); Mean Corpuscular HGB Conc 33.3 g/dl (31.0-35.0); Mean Corpuscular Hemoglobin 28.2 pg (27.0-33.0); Mean Corpuscular Volume 84.7 fL (80.0-98.0); Platelet Count 289 X10*3/uL (160-400); Red Blood Count 5.04 X10*6/uL (4.20-5.50); Red Cell Distribution Width 12.1 % (11.0-16.0); White Blood Count 5.9 X10*3/uL (4.8-10.8)
[2022-06-11 12:17] LABS: Estimated Average Glucose 134 mg/dL; Hemoglobin A1c % 6.3 %
[2022-06-11 13:07] LABS: Creatinine Urine 148.58 mg/dL; Microalbum/Creatinine Ratio Ur 6.7 ug/mg cr
[2022-06-11 13:22] LABS: Alanine Aminotransferase 27 U/L (0-31); Albumin Level 4.7 g/dL (3.5-5.0); Alkaline Phosphatase 47 U/L (39-117); Anion Gap 17 (12-20); Aspartate Amino Transferase 17 U/L (5-31); Bilirubin Total 0.7 mg/dL (0.0-1.0); Blood Urea Nitrogen 18 mg/dL (9-16); Calcium 9.7 mg/dL (8.4-10.2); Carbon Dioxide 25 mmol/L (22-29); Chloride 103 mmol/L (96-108); Cholesterol 186 mg/dL; Estimated Glomerular Filt Rate > 60; Glucose Fasting 106 mg/dL (60-99); HDL Cholesterol 65 mg/dL; Iron 93 mcg/dL (30-160); LDL Cholesterol Calculated 84 mg/dl; Percent Iron Saturation 25 % (15-50); Potassium 4.2 mmol/L (3.3-5.1); Sodium 141 mmol/L (135-145); Total Iron Binding Capacity 366 mcg/dL (228-428); Total Protein 7.6 g/dL (6.5-8.0); Triglycerides 186 mg/dL; Unsaturated Iron Binding 273 ug/dL
== END 2022-06-11 11:32 | disposition home or self-care (01) ==
LOC: HO.XRAY 11:31
PROVIDERS: Nurse Practitioner Gerontology; PCP Physician Assistant; Visit Provider Physician Assistant
DX: E11.9 Type 2 diabetes mellitus without complications (principal); D64.9 Anemia, unspecified; D50.9 Iron deficiency anemia, unspecified; E78.5 Hyperlipidemia, unspecified; N20.0 Calculus of kidney; Z79.4 Long term (current) use of insulin
CPT/HCPCS: 36415; 74018; 80053; 80061; 82043; 83036; 83540; 85027

== ENCOUNTER 2022-06-11 22:57 | Emergency (ER) | payer OTHER, SELFPAY ==
[2022-06-11 23:35] VITALS: BP 129/68; PULSE 69; RESP 16; TEMP 36.3; O2SAT 98; BMI 30.8
== END 2022-06-11 23:48 | disposition left against medical advice (07) ==
PROVIDERS: Emergency Provider Emergency Medicine; PCP Physician Assistant
DX: R10.9 Unspecified abdominal pain (principal)
CPT/HCPCS: 99281

== ENCOUNTER → 2022-06-14 12:27 | Outpatient (BNVA) | payer OTHER, SELFPAY | PROVIDERS: PCP Physician Assistant; Visit Provider Internal Medicine Gastroenterology | DX: K22.2 Esophageal obstruction (principal); R10.13 Epigastric pain; R14.0 Abdominal distension (gaseous); R13.14 Dysphagia, pharyngoesophageal phase; K59.03 Drug induced constipation; Z86.010 Personal history of colon polyps | CPT/HCPCS: 99212 ==

== ENCOUNTER 2022-08-08 13:52 | Outpatient (REF) | payer OTHER, SELFPAY ==
[2022-08-08 16:47] LABS: MANUAL DIFF FLAG NO
[2022-08-08 16:53] LABS: Basophils Percent Auto 0.7 % (0-2); Eosinophils Absolute Auto 0.2 X10*3/uL (0.0-0.4); Hematocrit 39.9 % (37.0-47.0); Hemoglobin 13.3 g/dl (12.0-16.0); Imm Gran Abs Auto 0.02 X10*3/uL (0.00-0.03); Imm Gran Pct Auto 0.4 % (0.0-0.4); Lymphocytes Absolute Auto 2.3 X10*3/uL (1.2-4.9); Lymphocytes Percent Auto 40.3 % (20-40); Mean Corpuscular HGB Conc 33.3 g/dl (31.0-35.0); Mean Corpuscular Hemoglobin 27.7 pg (27.0-33.0); Mean Platelet Volume 9.3 fL (9.4-12.3); Monocytes Absolute Auto 0.5 X10*3/uL (0.1-1.2); Monocytes Percent Auto 8.8 % (2-11); Neutrophils Absolute Auto 2.6 x10*3/uL (2.0-8.3); Neutrophils Percent Auto 46.8 % (45-73); Platelet Count 334 X10*3/uL (160-400); Red Blood Count 4.81 X10*6/uL (4.20-5.50); White Blood Count 5.6 X10*3/uL (4.8-10.8)
[2022-08-08 17:08] LABS: Alanine Aminotransferase 23 U/L (0-31); Albumin Level 4.5 g/dL (3.5-5.0); Alkaline Phosphatase 50 U/L (39-117); Aspartate Amino Transferase 15 U/L (5-31); Bilirubin Direct 0.2 mg/dL (0.0-0.5); Bilirubin Total 0.5 mg/dL (0.0-1.0); Lipase 59 U/L (8-78); Total Protein 7.3 g/dL (6.5-8.0)
== END 2022-08-08 13:53 | disposition home or self-care (01) ==
LOC: HO.HMGCLDS 13:52
PROVIDERS: PCP Physician Assistant; Visit Provider Internal Medicine Gastroenterology
DX: R10.13 Epigastric pain (principal)
CPT/HCPCS: 36415; 80076; 83690; 85025

== ENCOUNTER → 2022-08-09 12:53 | Outpatient (BNVA) | payer OTHER, SELFPAY | PROVIDERS: PCP Physician Assistant; Visit Provider Internal Medicine Gastroenterology | DX: A49.8 Other bacterial infections of unspecified site (principal); K59.03 Drug induced constipation; D64.9 Anemia, unspecified; K62.89 Other specified diseases of anus and rectum; K29.70 Gastritis, unspecified, without bleeding; R10.9 Unspecified abdominal pain; R13.14 Dysphagia, pharyngoesophageal phase; K22.2 Esophageal obstruction; R14.0 Abdominal distension (gaseous); R19.6 Halitosis | CPT/HCPCS: Q3014 ==

== ENCOUNTER 2022-08-27 15:16 | Outpatient (REF) | payer OTHER, SELFPAY | END 2022-08-27 15:17 | disposition home or self-care (01) | LOC: HO.LAB 15:16 | PROVIDERS: PCP Physician Assistant; Visit Provider Internal Medicine Gastroenterology | DX: Z13.89 Encounter for screening for other disorder (principal) ==

== ENCOUNTER 2022-08-29 12:27 | Outpatient (REF) | payer OTHER, SELFPAY ==
[2022-08-29 13:22] LABS: CDiff Gene PCR NEGATIVE (Negative)
== END 2022-08-29 12:28 | disposition home or self-care (01) ==
LOC: HO.LNP 12:27
PROVIDERS: Visit Provider Internal Medicine Gastroenterology
DX: A49.8 Other bacterial infections of unspecified site (principal)
CPT/HCPCS: 87493

== ENCOUNTER → 2022-10-03 14:09 | Outpatient (BNVA) | payer OTHER, SELFPAY | PROVIDERS: PCP Physician Assistant; Referring Provider Physician Assistant; Visit Provider Surgery | DX: K62.89 Other specified diseases of anus and rectum (principal) | CPT/HCPCS: 99202 ==

== ENCOUNTER 2022-10-31 10:38 | Outpatient (REF) | payer OTHER, SELFPAY ==
[2022-10-31 11:31] LABS: Hematocrit 39.3 % (37.0-47.0); Hemoglobin 13.3 g/dl (12.0-16.0); Mean Corpuscular HGB Conc 33.8 g/dl (31.0-35.0); Mean Corpuscular Hemoglobin 28.7 pg (27.0-33.0); Mean Corpuscular Volume 84.9 fL (80.0-98.0); Mean Platelet Volume 9.2 fL (9.4-12.3); Platelet Count 268 X10*3/uL (160-400); Red Blood Count 4.63 X10*6/uL (4.20-5.50); Red Cell Distribution Width 11.9 % (11.0-16.0)
[2022-10-31 11:51] LABS: Alanine Aminotransferase 28 U/L (0-31); Albumin Level 4.6 g/dL (3.5-5.0); Alkaline Phosphatase 43 U/L (39-117); Anion Gap 13 (12-20); Aspartate Amino Transferase 17 U/L (5-31); Bilirubin Total 0.5 mg/dL (0.0-1.0); Blood Urea Nitrogen 15 mg/dL (9-16); Calcium 9.6 mg/dL (8.4-10.2); Carbon Dioxide 25 mmol/L (22-29); Chloride 103 mmol/L (96-108); Cholesterol 208 mg/dL; Estimated Glomerular Filt Rate > 60; Glucose Fasting 151 mg/dL (60-99); HDL Cholesterol 56 mg/dL; LDL Cholesterol Calculated 94 mg/dl; Potassium 4.1 mmol/L (3.3-5.1); Sodium 137 mmol/L (135-145); Total Protein 7.3 g/dL (6.5-8.0); Triglycerides 290 mg/dL
[2022-10-31 11:53] LABS: Creatinine Urine 159.11 mg/dL; Microalbum/Creatinine Ratio Ur 3.7 ug/mg cr
[2022-10-31 12:12] LABS: TSH reflex Free T4 2.05 uIU/mL (0.32-4.0)
[2022-10-31 12:25] LABS: HIV AB/AG Nonreactive (Nonreactive); HIV Num 1 0.04 S/CO (0.00-0.99)
== END 2022-10-31 10:39 | disposition home or self-care (01) ==
LOC: HO.LAB 10:38
PROVIDERS: PCP Physician Assistant; Visit Provider Physician Assistant
DX: Z11.4 Encounter for screening for human immunodeficiency virus [HIV] (principal); K60.2 Anal fissure, unspecified; E78.2 Mixed hyperlipidemia; I10 Essential (primary) hypertension
CPT/HCPCS: 36415; 80053; 80061; 82043; 84443; 85027; 87389; 99212

== ENCOUNTER 2022-11-06 10:16 | Outpatient (REF) | payer OTHER, SELFPAY | END 2022-11-06 10:17 | disposition home or self-care (01) | LOC: HO.LNP 10:16 | PROVIDERS: Visit Provider Physician Assistant | DX: K21.9 Gastro-esophageal reflux disease without esophagitis (principal) | CPT/HCPCS: 87338 ==

== ENCOUNTER 2022-11-29 16:26 | Outpatient (REF) | payer OTHER, SELFPAY ==
[2022-11-29 17:14] LABS: Influenza A PCR NEGATIVE (Negative); Influenza B PCR NEGATIVE (Negative); Resp Syncy Virus RNA Qual PCR NEGATIVE (Negative); SARS COV2 PCR INHOUSE NEGATIVE (Negative)
== END 2022-11-29 16:27 | disposition home or self-care (01) ==
LOC: HO.LNP 16:26
PROVIDERS: Visit Provider Nurse Practitioner Family
DX: Z20.822 Contact with and (suspected) exposure to COVID-19 (principal); R09.89 Other specified symptoms and signs involving the circulatory and respiratory systems
CPT/HCPCS: 0241U

== ENCOUNTER 2023-01-02 14:49 | Outpatient (REF) | payer OTHER, SELFPAY ==
[2023-01-02 17:06] LABS: Blood Urea Nitrogen 16 mg/dL (9-16); Estimated Glomerular Filt Rate > 60
== END 2023-01-02 14:50 | disposition home or self-care (01) ==
LOC: HO.LAB 14:49
PROVIDERS: PCP Physician Assistant; Visit Provider Surgery
DX: K62.89 Other specified diseases of anus and rectum (principal)
CPT/HCPCS: 36415; 46600; 82565; 84520; 99212

== ENCOUNTER 2023-01-30 15:18 | Outpatient (REF) | payer OTHER, SELFPAY ==
--- NOTE | ~2023-01-30 | CT_ITS ---
EXAMINATION: CT PELVIS WITH CONTRAST CLINICAL INFORMATION: Specified disease of anus and rectum. Rule out perianal abscess. COMPARISON: None available. TECHNIQUE: Helical scanning was performed with submillimeter collimation through the pelvis with the use of oral contrast and during bolus intravenous injection of 85 mL of Omnipaque 350 intravenous contrast. Sagittal and coronal multiplanar 2-D reconstructions were obtained. This CT examination was performed using dose optimization techniques as appropriate, variously including the following: *Automated exposure control *Adjustment of mA and/or kV according to patient size (this includes techniques or standardized protocols for targeted exams where dose is matched to indication/reason for exam; i.e. extremities or head) *Use of iterative reconstruction technique DLP: 316 mGy-cm FINDINGS: PELVIS: Visualized small bowel loops and the colon appear unremarkable. No free air or abnormal pelvic lymphadenopathy. No abnormality seen in the rectum, anal or perianal soft tissues No evidence of abdominal wall hernia. There is a right buttock rim-enhancing centrally hypodense lesion likely fatty granuloma. OSSEOUS STRUCTURES: There is mild degenerative disc changes L4-L5 and L5-S1 disc levels. No aggressive lytic or sclerotic process seen. CT/CT pelvis w IV con IMPRESSION: 1. Unremarkable CT pelvis exam. 2. There is a rim-enhancing centrally hypodense lesion in the right buttock region likely fatty granuloma. 3. Degenerative disc changes L4-L5 and L5-S1 disc levels.
[2023-01-30] MEDS: iohexoL 350 MG/ML 100 ML INFUS..BTL IV (15:46)
== END 2023-01-30 15:19 | disposition home or self-care (01) ==
LOC: HO.CT 15:18
PROVIDERS: PCP Physician Assistant; Visit Provider Surgery
DX: K62.89 Other specified diseases of anus and rectum (principal)
CPT/HCPCS: 72193; Q9967

== ENCOUNTER → 2023-02-06 12:44 | Outpatient (BNVA) | payer OTHER, SELFPAY | PROVIDERS: PCP Physician Assistant; Visit Provider Surgery | DX: K62.89 Other specified diseases of anus and rectum (principal) | CPT/HCPCS: 99212 ==

== ENCOUNTER → 2023-02-21 10:21 | Outpatient (BNVA) | payer OTHER, SELFPAY | PROVIDERS: PCP Physician Assistant; Visit Provider Internal Medicine Gastroenterology | DX: Z12.11 Encounter for screening for malignant neoplasm of colon (principal); K52.9 Noninfective gastroenteritis and colitis, unspecified; K22.2 Esophageal obstruction; K59.03 Drug induced constipation; K21.00 Gastro-esophageal reflux disease with esophagitis, without bleeding; K64.1 Second degree hemorrhoids; K62.89 Other specified diseases of anus and rectum; K60.2 Anal fissure, unspecified; A04.72 Enterocolitis due to Clostridium difficile, not specified as recurrent; R10.13 Epigastric pain; R13.14 Dysphagia, pharyngoesophageal phase | CPT/HCPCS: 99212 ==

== ENCOUNTER 2023-02-25 13:08 | Outpatient (REF) | payer OTHER, SELFPAY ==
[2023-02-25 14:37] LABS: CDiff Gene PCR POSITIVE (Negative)
[2023-02-25 15:22] LABS: CDiff Toxin Positive (Negative)
[2023-02-25 15:23] LABS: CDIFF Internal ctrl Dots and bkg OK (V)
[2023-02-28 20:33] LABS: Fecal Fat Qualitative NORMAL (NORMAL)
[2023-03-03 20:03] LABS: Pancreatic Elastase-1 >500 mcg/g
== END 2023-02-25 13:09 | disposition home or self-care (01) ==
LOC: HO.LNP 13:08
PROVIDERS: Visit Provider Internal Medicine Gastroenterology
DX: K52.9 Noninfective gastroenteritis and colitis, unspecified (principal)
CPT/HCPCS: 82656; 82705; 87324; 87493

== ENCOUNTER 2023-03-11 09:54 | Outpatient (REF) | payer OTHER, SELFPAY ==
--- NOTE | ~2023-03-11 | MM_ITS ---
EXAMINATION: MM SCREENING DIGITAL BREAST TOMOSYNTHESIS, BILATERAL CLINICAL INFORMATION: Screening. Asymptomatic. The lifetime risk of breast cancer based on the Tyrer-Cuzick Model is 7%. COMPARISON: Mammography: 02/06/2022, 02/03/2021, 06/22/2019, 06/16/2018, 06/12/2017. TECHNIQUE: Digital breast tomosynthesis is performed in both the craniocaudal and mediolateral oblique views along with computer-aided detection (CAD). Synthesized 2D images are generated from the tomosynthesis. FINDINGS: There are scattered areas of fibroglandular density (ACR BI-RADS breast composition Category b). There are no significant masses, abnormal calcifications, or other abnormalities. No architectural abnormality or developing density or significant change from prior studies. The axilla and skin contours are unremarkable. MM/MM tomosynthesis screening BI IMPRESSION: No mammographic evidence of malignancy. ASSESSMENT: BI-RADS 1: Negative RECOMMENDATION: Routine annual mammography screening. This patient's information was entered into a reminder system with a target due date for their next mammogram.
== END 2023-03-11 09:55 | disposition home or self-care (01) ==
LOC: HO.MAMMO 09:54
PROVIDERS: PCP Physician Assistant; Visit Provider Physician Assistant
DX: Z12.31 Encounter for screening mammogram for malignant neoplasm of breast (principal)
CPT/HCPCS: 77063; 77067

== ENCOUNTER 2023-04-19 11:58 | Outpatient (REF) | payer OTHER, SELFPAY ==
[2023-04-19 12:58] LABS: Hematocrit 39.2 % (37.0-47.0); Hemoglobin 13.2 g/dl (12.0-16.0); Mean Corpuscular HGB Conc 33.7 g/dl (31.0-35.0); Mean Corpuscular Hemoglobin 28.4 pg (27.0-33.0); Mean Corpuscular Volume 84.5 fL (80.0-98.0); Mean Platelet Volume 8.8 fL (9.4-12.3); Platelet Count 265 X10*3/uL (160-400); Red Blood Count 4.64 X10*6/uL (4.20-5.50); White Blood Count 5.2 X10*3/uL (4.8-10.8)
[2023-04-19 13:11] LABS: INTERNATIONAL NORM RATIO 0.9 (0.9-1.1); Prothrombin Time 10.8 SEC (10.0-13.1)
[2023-04-19 13:40] LABS: Alanine Aminotransferase 25 U/L (0-31); Albumin Level 4.5 g/dL (3.5-5.0); Alkaline Phosphatase 47 U/L (39-117); Anion Gap 12 (12-20); Aspartate Amino Transferase 17 U/L (5-31); Bilirubin Total 0.8 mg/dL (0.0-1.0); Blood Urea Nitrogen 15 mg/dL (9-16); Calcium 9.3 mg/dL (8.4-10.2); Carbon Dioxide 26 mmol/L (22-29); Chloride 105 mmol/L (96-108); Cholesterol 177 mg/dL; Estimated Glomerular Filt Rate > 60; Glucose Fasting 116 mg/dL (60-99); HDL Cholesterol 45 mg/dL; LDL Cholesterol Calculated 88 mg/dl; Potassium 3.7 mmol/L (3.3-5.1); Sodium 139 mmol/L (135-145); Total Protein 7.4 g/dL (6.5-8.0); Triglycerides 222 mg/dL
[2023-04-19 13:57] LABS: Syphilis Screen Nonreactive (Nonreactive)
[2023-04-19 15:01] LABS: CT PCR NOT DETECTED (Not Detect.); NG PCR NOT DETECTED (Not Detect.)
[2023-04-22 09:50] LABS: HIV AB/AG Nonreactive (Nonreactive); HIV Num 1 0.05 S/CO (0.00-0.99)
== END 2023-04-19 11:59 | disposition home or self-care (01) ==
LOC: HO.LAB 11:58
PROVIDERS: PCP Physician Assistant; Visit Provider Physician Assistant
DX: Z01.818 Encounter for other preprocedural examination (principal); Z11.4 Encounter for screening for human immunodeficiency virus [HIV]; E78.5 Hyperlipidemia, unspecified; I10 Essential (primary) hypertension; E11.9 Type 2 diabetes mellitus without complications; Z20.2 Contact with and (suspected) exposure to infections with a predominantly sexual mode of transmission
CPT/HCPCS: 0353U; 80053; 80061; 85027; 85610; 86780; 87389

== ENCOUNTER 2023-05-17 10:51 | Day surgery (SDC) | payer OTHER, SELFPAY ==
--- NOTE | 2023-05-16 10:47 | HO.ANESPROP2 ---
HPI - Anesthesia Eval Consult details Narrative: 58yo F for Upper Endoscopy and Colonoscopy [facility] Active Problems Active Problems: All Active Problems (Updated 03/18/23 @ 07:21 by Silvino Andujar PA-C) Clostridioides difficile infection (Acute) Chronic diarrhea (Acute) Pre-op evaluation (Acute) Left leg pain (Acute) Bacterial conjunctivitis of both eyes (Acute) Pain in right leg (Acute) Obese (Acute) Anal fissure (Acute) Anal pain (Acute) Hemorrhoids (Acute) GERD (gastroesophageal reflux disease) (Acute) Bronchitis (Acute) Chest discomfort (Acute) Drug induced constipation (Acute) Nephrolithiasis (Acute) Anemia (Acute) THOMAS (obstructive sleep apnea) (Acute) Pulmonary nodules (Acute) Encounter for surgical aftercare following surgery on the skin and subcutaneous tissue (Acute) Abdominal fullness in left flank (Acute) Asthma (Acute) Pre-op evaluation (Acute) Calcified granuloma of lung (Acute) Yeast infection (Acute) Cough (Acute) Exacerbation of asthma (Acute) Somnolence, daytime (Acute) Swelling of toe of right foot (Acute) Hemorrhoids (Acute) EMIL (generalized anxiety disorder) (Acute) MDD (major depressive disorder), recurrent episode, moderate (Acute) Annual physical exam (Acute) Screening for STD (sexually transmitted disease) (Acute) Asthma (Acute) Urinary tract infection (Acute) Upper respiratory infection (Acute) C. difficile diarrhea (Acute) Gastritis (Acute) Abdominal pain (Acute) Coxalgia (Acute) Diarrhea (Acute) Acute sinusitis (Acute) Dysphagia, pharyngoesophageal phase (Acute) Bad breath (Acute) Abdominal bloating (Acute) Schatzki's ring (Acute) Migraines (Acute) Lumbar radiculopathy (Acute) Sciatica associated with disorder of lumbar spine (Acute) Flu-like symptoms (Acute) Spondylosis of lumbar spine (Acute) Fibromyalgia (Acute) Type 2 diabetes mellitus (Acute) Dyslipidemia (Acute) HTN (hypertension) (Acute) Obesity, Class I, BMI 30-34.9 (Acute) Annual physical exam (Acute) Screening for STD (sexually transmitted disease) (Acute) Screening for HIV (human immunodeficiency virus) (Acute) UTI (urinary tract infection) (Acute) Somatic dysfunction of right sacroiliac joint (Acute) Colon cancer screening (Acute) Recurrent Clostridioides difficile infection (Acute) Schatzki's ring (Acute) Epigastric pain (Acute) HLD (hyperlipidemia) (Acute) Renal colic (Acute) Hematuria (Acute) Nephrolithiasis (Acute) Past Medical History Medical History (Updated 05/17/23 @ 11:33 by Tawanna Cobian RN) Anal fissure Anal pain Anxiety Arthritis Asthma Back pain Depression Dyslipidemia Fibromyalgia Flu-like symptoms GERD (gastroesophageal reflux disease) History of panic attacks HLD (hyperlipidemia) HTN (hypertension) Hx of renal calculi Hx of thyroid nodule Nephrolithiasis Obesity, Class I, BMI 30-34.9 Pulmonary nodules 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 Type 2 diabetes mellitus Family History Family History Father Diabetes Hypertension Depression Mother Lung cancer Diabetes Mental health disorder Brother HIV (human immunodeficiency virus infection) Depression Diabetes Sister Hypertension Diabetes Mental health disorder Daughter Mental health disorder Son Mental health disorder Surgical History Surgical History (Updated 05/17/23 @ 11:01 by Tawanna Cobian RN) H/O hemorrhoidectomy H/O partial thyroidectomy (~2016) History of abdominoplasty History of bilateral breast reduction surgery (~2008) History of colonoscopy History of hysterectomy History of laparoscopic adjustable gastric banding (~2010) History of removal of laparoscopic gastric banding device (~2015) Hx laparoscopic cholecystectomy Hx of section Hx of colonoscopy (~11/2016) Hx of cosmetic surgery Hx of endoscopy Hx of lithotripsy Hx of tonsillectomy S/P anal fissurectomy S/P left oophorectomy Social History Social History Household Members: Children Housing: House Alcohol intake: current Alcohol intake frequency: holidays/special occasions only Patient Tobacco Use Status: Former Tobacco user Quit Date: 16 yrs ago e-Cigarette/Vaping Use: Never Used Second Hand Smoke Exposure: No Use of substances other than those prescribed or required for medical reasons: No Are you DNR?: No Advance Directives: No Advance Directives Information Provided: Yes service: No Current occupational status: disabled Cognitive needs: No Hearing needs: No Vision needs: Yes Meds Allergies Allergy/AdvReac Type Severity Reaction Status Date / Time seafood Allergy Unknown Unknown Verified 05/17/23 11:02 lisinopril AdvReac Unknown cough Verified 05/17/23 11:02 Home Medications Medication Instructions Recorded Confirmed Last Taken Type citalopram 20 mg tablet 20 mg PO DAILY 08/19/20 05/17/23 12/16/20 History clonazepam 1 mg tablet 1 mg PO BID PRN Anxiety 12/13/20 05/17/23 05/17/23 06:30 History zolpidem 10 mg tablet 10 mg PO BEDTIME 04/04/22 05/17/23 Unknown History telmisartan 20 mg tablet (Micardis) 20 mg PO DAILY 05/17/23 05/17/23 05/17/23 06:30 History Exam Exam Date and Time: May 16, 2023 104 Pertinent Lab Results Pertinent Lab Results: Laboratory Tests 04/19/23 04/19/23 12:12 12:12 WBC 5.2 Hgb 13.2 Hct 39.2 Plt Count 265 Sodium 139 Potassium 3.7 Chloride 105 Carbon Dioxide 26 BUN 15 Creatinine 0.74 Assessment and Plan Assessment Anesthesia Assessment: Chart Reviewed
--- NOTE | 2023-05-17 11:04 | MHC.SHP ---
Pre-Procedural Eval Section A Date of Service: 05/17/23 The patient is an INPATIENT: No The History & Physical has been completed within 30 days and I have reviewed it.: No Section B Chief Complaint: Screening, chronic diarrhea, abd pain, dysphagia Relevant Family History (Specify if Yes): No Relevant Social History: None Present Medications: see Short Stay Collaborative assessment Medical History: Significant History (Dyslipidemia Fibromyalgia Fibromyalgia Flu-like symptoms GERD (gastroesophageal reflux disease) HLD (hyperlipidemia) HTN (hypertension) Hx of renal calculi Hx of thyroid nodule Low back pain Nephrolithiasis Obesity, Class I, BMI 30-34.9 Pulmonary nodules Recurrent Clostridioides difficile infection ) History of Previous Operations: Relevant previous surgery/procedure and date(s) (H/O hemorrhoidectomy H/O partial thyroidectomy (~2016) History of abdominoplasty History of bilateral breast reduction surgery (~2008) History of colonoscopy History of hysterectomy History of laparoscopic adjustable gastric banding (~2010) History of removal of laparoscopic gastric banding device () Allergies: Allergies Allergy/AdvReac Type Severity Reaction Status Date / Time seafood Allergy Unknown Unknown Verified 05/17/23 11:02 lisinopril AdvReac Unknown cough Verified 05/17/23 11:02 Review of Systems Sugical H&P ROS: Negative: Constitution, Cardiovascular and Respiratory and Yes, Specify: Gastrointestinal (dysphagia, diarrhea) Exam Surgical H&P Exam: Normal: Heart, Normal: Lungs, Normal: Extremities and Normal: Abdomen Plan Diagnosis/Plan: Unchanged I have reviewed the history and physical and performed a pertinent physical examination on my patient. No changes have occurred unless specified. Time Spent With Patient Time: Total time managing care of this patient today ____ minutes.
[2023-05-17 11:05] VITALS: BMI 32.1
[2023-05-17 11:19] VITALS: BP 114/73; PULSE 57; RESP 16; TEMP 36.1; O2SAT 95
[2023-05-17] MEDS: Lactated Ringers 1,000 ML 100 ML IVCONT (11:28)
[2023-05-17 11:38] LABS: Glucose, Whole Blood 127 mg/dL (60-115)
--- NOTE | 2023-05-17 11:43 | W.PM.OPN ---
Operative Note Operative Note Date of Service: 05/17/23 Narrative: FLEXIBLE TRANSORAL UPPER GASTROINTESTINAL ENDOSCOPY WITH BIOPSIES AND ESOPHAGEAL BALLOON DILATION AND COLONOSCOPY TILL CECUM WITH BIOPSIES AND SUBMUCOSAL INJECTION Pre-op diagnosis: colon cancer screening, chronic diarrhea, hx of C Diff, hx of hyperplastic colon polyps, abdominal pain, dysphagia Post-op diagnosis: GERD, dysphagia, gastritis, duodenal polyp, colon polyp, diverticulosis, hemorrhoids? Endoscopist:? Shabnam Hitchcock MD Anesthesia:?MAC UPPER ENDOSCOPY Consent: Indications for the procedure and potential complications of bleeding, perforation, reaction to medications and missed diagnosis were discussed with the patient and informed consent was obtained. Instrument: Olympus GIF H 190 mid size upper endoscope Monitoring: Vital signs and clinical assessment, continuous EKG monitoring, Pulse oximetry, Carbon Dioxide monitoring and blood pressure monitoring were done throughout the procedure. Procedure: The patient was placed in the left lateral decubitis position and pre-procedure medications were administered and a bite block was placed. The endoscope was inserted into the mouth and advanced under direct vision to the third part of duodenum. A careful inspection was made as the upper endoscope was withdrawn including a retroflexed examination of the proximal stomach; Findings and interventions are described below. Findings: Larynx: Normal Esophagus: Tortuous esophagus with increased tertiary contractions without stricture or ring - biopsies obtained during past EGD were negative for EOE.?? GE junction at 36 cms.? Minimal focal esophagitis at GE junction and no Garcia's. Empiric balloon dilation was performed with a 20 mm (60 F) CRE balloon x 60 sec Stomach:?Mild gastric erythema with a few antral erosions. Biopsies were obtained. Grade 2 flap valve on retroflexed examination of the cardia. Duodenum:?A 5-6 mm sessile polyp in the bulb - biopsied and normal descending duodenum.? Biopsies were obtained from 3rd part of the duodenum to check for celiac sprue. Intervention: Biopsies and balloon dilation as noted above COLONOSCOPY PROCEDURE NOTE Consent: Indications for the procedure and potential complications of bleeding, perforation, reaction to medications and missed diagnosis were discussed with the patient and informed consent was obtained. Instrument: Olympus PCF H 190 L variable stiffness pediatric colonoscope Monitoring: Vital signs and clinical assessment, intermittent blood pressure monitoring, continuous EKG monitoring, Pulse oximetry and Carbon Dioxide monitoring were done throughout the procedure. Colon withdrawl time was 19 minutes. Procedure: The patient was placed in the left lateral decubitis position and pre-procedure medications were administered. After a digital rectal examination of the ano-rectum, the video colonoscope was inserted into the rectum and advanced through the colon to the cecum. The colonoscope was slowly withdrawn in a retrograde panoramic fashion and the colon mucosa was carefully examined including a retroflexed view of the rectum. Findings and interventions are described below. Procedure Difficulty: : Without difficulty Findings: Terminal Ileum: Not evaluated Cecum: A 10-12 mm sessile polyp in the appendicular orifice - polyp was raised with 5 cc of Ele[place] and unable to snare the polyp. Polyp was removed piecemeal with a cold biopsy. Ascending Colon: Normal Transverse Colon: Normal Descending Colon: Normal Sigmoid Colon: Moderate diverticulosis Rectum: Normal Ano-rectum: Moderate internal hemorrhoids Colon preparation: Excellent Impression and Post Procedure Diagnosis: Endoscopy Findings: ESOPHAGUS: Tortuous esophagus with increased tertiary contractions without stricture or ring - biopsies obtained during past EGD were negative for EOE.?? GE junction at 36 cms.? Minimal focal esophagitis at GE junction and no Garcia's. Empiric balloon dilation was performed with a 20 mm (60 F) CRE balloon x 60 sec STOMACH: Mild gastritis DUODENUM: A small benign appearing polyp was biopsied in the duodenal bulb. Biopsied obtained from 3rd part of the duodenum to check for celiac sprue Colonoscopy Findings: One polyp was biopsied Random biopsies obtained from the right and left colon to check for microscopic colitis Moderate diverticulosis seen in the sigmoid colon Small hemorrhoids on retroflexed exam. Colon aspirate was sent for C Diff toxin Plan: Await pathology results Patient has an appointment on 06/20/23 in the GI Clinic with Shabnam Hitchcock M.D. Repeat Colonoscopy interval based on path results - in 3-5 years if polyps are adenomatous and 10 years if polyps are hyperplastic. Colon polyps and diverticulosis handouts were given in the discharge area
[2023-05-17 13:08] VITALS: BP 110/62; PULSE 70; RESP 16; TEMP 36.6; O2SAT 96
[2023-05-17 13:23] VITALS: BP 118/72; PULSE 64; RESP 20; TEMP 36.1; O2SAT 99
[2023-05-17 13:47] LABS: Glucose, Whole Blood 122 mg/dL (60-115)
[2023-05-17 14:58] LABS: CDiff Gene PCR POSITIVE (Negative)
[2023-05-17 15:41] LABS: CDIFF Internal ctrl Dots and bkg OK (V); CDiff Toxin Negative (Negative)
== END 2023-05-17 13:43 | disposition home or self-care (01) ==
PROVIDERS: PCP Physician Assistant; Visit Provider Internal Medicine Gastroenterology
PROC: (CPT 45380; principal; 2023-05-17 12:10)
DX: K31.7 Polyp of stomach and duodenum (principal); D12.0 Benign neoplasm of cecum; K57.30 Diverticulosis of large intestine without perforation or abscess without bleeding; K64.8 Other hemorrhoids; A04.71 Enterocolitis due to Clostridium difficile, recurrent; K29.70 Gastritis, unspecified, without bleeding; R13.14 Dysphagia, pharyngoesophageal phase; K21.9 Gastro-esophageal reflux disease without esophagitis; E11.9 Type 2 diabetes mellitus without complications; I10 Essential (primary) hypertension; E78.5 Hyperlipidemia, unspecified; J45.909 Unspecified asthma, uncomplicated; Z90.710 Acquired absence of both cervix and uterus; Z90.49 Acquired absence of other specified parts of digestive tract; Z79.899 Other long term (current) drug therapy
CPT/HCPCS: 45380; 43239; 43249; 82947; 87324; 87493; 88305; 88342; C1726; J2250; J3010

== ENCOUNTER → 2023-05-17 10:51 | Outpatient (BNV) | payer OTHER, SELFPAY | PROVIDERS: PCP Physician Assistant; Visit Provider Internal Medicine Gastroenterology | DX: Z12.11 Encounter for screening for malignant neoplasm of colon (principal); D12.0 Benign neoplasm of cecum; R13.10 Dysphagia, unspecified; K31.7 Polyp of stomach and duodenum | CPT/HCPCS: 43239; 43249; 45380; 45381 ==

== ENCOUNTER 2023-06-12 13:59 | Outpatient (AMB) | payer OTHER, SELFPAY ==
--- NOTE | 2023-06-12 14:10 | A.OFFPC_ITS ---
Vital Signs 06/12/23 14:11 Height 5 ft 6 in Weight 196 lb 8 oz BMI 31.7 BP 118/78 Blood Pressure Location Lt brachial Position Sitting Pulse 75 Pulse Source Pulse Oximeter Pulse Oximetry (%) 95 Oxygen Delivery Method Room Air Intake Visit Reasons: pain around the esophagus/leg Allergies seafood Allergy (Unknown, Verified 06/12/23 14:26) Unknown lisinopril Adverse Reaction (Unknown, Verified 06/12/23 14:26) cough Medication List - Last Reconciled 06/12/23 by Silvino Andujar PA-C acetaminophen (Tylenol Extra Strength) 1,000 mg (2 x 500 mg) PO QID PRN albuterol sulfate 2.5 mg (3 mL) inhalation Q6H PRN 30 days albuterol sulfate 90 mcg/actuation 2 puffs inhalation QID 30 days atorvastatin 40 mg PO BEDTIME blood sugar diagnostic (FreeStyle Precision Steffen Strips) As directed once daily blood-glucose meter (FreeStyle Precision Steffen Meter) As directed cetirizine 10 mg PO DAILY PRN 90 days cholecalciferol (vitamin D3) 25 mcg PO DAILY 90 days citalopram 20 mg PO DAILY clonazepam 1 mg PO BID PRN dulaglutide (Trulicity) 0.75 mg (0.5 mL) subcut QWEEK 4 weeks famotidine (Pepcid) 40 mg PO BEDTIME 90 days fenofibrate nanocrystallized 48 mg PO DAILY fluticasone propion-salmeterol 250-50 mcg/dose (Advair Diskus) 1 inh inhalation BID 30 days fluticasone propionate 110 mcg/actuation (Flovent HFA) 1 puff inhalation BID 30 days gabapentin 400 mg PO BID 90 days ibuprofen 800 mg PO Q8H PRN 15 days ibuprofen 800 mg PO .prn metformin 1,000 mg PO BID omeprazole 40 mg PO DAILY 30 days polymyxin B sulf-trimethoprim 10,000 unit- 1 mg/mL 1 drp ophthalmic (eye) Q4H 7 days pyridoxine (vitamin B6) 100 mg (2 x 50 mg) PO DAILY 90 days telmisartan (Micardis) 20 mg PO DAILY tramadol 50 mg PO DAILY 10 days zolpidem 10 mg PO BEDTIME Tobacco use date assessed: 11/01/22 Dental Screening Dental Screen Date: 06/12/23 Did you have a dental visit in the last 12 months?: Yes Did you have a dental problem in the last 6 months where you did not have access to dental care?: No Was dental information given to patient?: Patient has dentist HPI pain around the esophagus/leg HPI Details Patient is a 58-year-old female here today for follow-up visit.? Patient has a past medical history significant for type 2 diabetes, hypertension, obesity, recurrent C diff colitis, moderate persistent asthma, pulmonary nodule, major depressive disorder and generalized anxiety disorder. REports recent vacationing and report having a chest pressure that lasted for 2 hours and decreased in severity over the last couple of weeks. She has been checked out for hard etiology in the past with EKGs and stress tests which were normal. . Concern--> recently underwent endoscopy --> Upper endoscopy showing gastritis - she did undergo an empiric balloon dilation Colonoscopy 2022- normal. .. Type 2 diabetes:? Has been fairly well controlled with metformin 1000 mg b.i.d ..? She reports the metformin causes her some GI upset and increased diarrhea even in the setting of her C diff colitis.? She would like to try a new diabetic medication that also has added benefit of weight loss. PLAN:? Will trial Trulicity as alternative to metformin.? Did discuss the side effects of this medication early on in treatment course. If starting Trulicity advised her reduce her metformin dose to half 500 mg b.i.d. ? . Asthma:? Lately asthma has been fairly well controlled.? She continues with p.r.n. use of her albuterol inhaler and daily use of her Advair inhaler.? She denies any recent nighttime awakenings with asthma symptoms. ? She denies any fever chills. .. Major depressive disorder, generalized anxiety disorder:? Continues to follow a mental therapist and a psychiatrist whom manage her mental health medications.? She feels fairly stable at this time with her mental health medications. ? 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 Type 2 diabetes mellitus Surgical History H/O hemorrhoidectomy H/O partial thyroidectomy (~2016) History of abdominoplasty History of bilateral breast reduction surgery (~2008) History of colonoscopy History of hysterectomy History of laparoscopic adjustable gastric banding (~2010) History of removal of laparoscopic gastric banding device (~2015) Hx laparoscopic cholecystectomy Hx of section Hx of colonoscopy (~11/2016) Hx of cosmetic surgery Hx of endoscopy Hx of lithotripsy Hx of tonsillectomy S/P anal fissurectomy S/P left oophorectomy Family History Father Diabetes Hypertension Depression Mother Lung cancer Diabetes Mental health disorder Brother HIV (human immunodeficiency virus infection) Depression Diabetes Sister Hypertension Diabetes Mental health disorder Daughter Mental health disorder Son Mental health disorder Social History Household Members: Children Housing: House Alcohol intake: current Alcohol intake frequency: holidays/special occasions only Patient Tobacco Use Status: Former Tobacco user Quit Date: 16 yrs ago e-Cigarette/Vaping Use: Never Used Second Hand Smoke Exposure: No service: No Current occupational status: disabled Cognitive needs: No Hearing needs: No Vision needs: Yes Questionnaire PHQ-9 Over the last 2 weeks, how often have you been bothered by any of the following problems? 1. Little interest or pleasure in doing things: nearly every day 2. Feeling down, depressed, or hopeless: nearly every day 3. Trouble falling or staying asleep, or sleeping too much: nearly every day 4. Feeling tired or having little energy: nearly every day 5. Poor appetite or overeating: more than half the days 6. Feeling bad about yourself - or that you are a failure or have let yourself or your family down: not at all 7. Trouble concentrating on things, such as reading the newspaper or watching television: nearly every day 8. Moving or speaking so slowly that other people could have noticed. Or the opposite - being so fidgety or restless that you have been moving around a lot more than usual: several days 9. Thoughts that you would be better off or of hurting yourself in some way: not at all Total score: 18 Depression Screening Interpretation: Positive Source: Developed by Drs. Vazquez Holden, Jaye Ryan, Carl Gaona and colleagues, with an educational kalpana from [employer]. Thrive Questionnaire Date Thrive assessed: 11/01/22 I am a: Patient What is your living situation today?: I have a steady place to live Within the past 12 months, did the food you bought not last and you didn't have the money to get more?: Never true Within the past 12 months, did you worry whether your food would run out before you got money to buy more?: Never true Do you have trouble paying for medicines?: No Do you have trouble getting transportation to medical appointments?: No Do you have trouble paying your heating and electricity bill?: No Do you have trouble taking care of your child, family member or friend?: No Do you have trouble with day-to-day activities such as bathing, preparing meals, shopping, managing finances, etc.?: No Are you currently unemployed and looking for a job?: No Are you interested in more education?: No Currently or been in a relationship where the following occur: no concerns reported AUDIT C Alcohol Use Questionnaire (AUDIT-C) 1. How often do you have a drink containing alcohol?: Monthly or less 2. How many drinks containing alcohol do you have on a typical day when you are drinking?: 1 or 2 3. How often do you have six or more drinks on one occasion?: Never Total Score: 1 EMIL-7 AMB Questionnaire EMIL-7 Date EMIL - 7 assessed: 11/01/22 Feeling nervous, anxious, or on edge: 3 = Nearly every day Not being able to stop or control worryin = Nearly every day Worrying too much about different things: 3 = Nearly every day Trouble relaxin = Nearly every day Being so restless that it is hard to sit still: 2 = More than half the days Becoming easily annoyed or irritable: 2 = More than half the days Feeling afraid as if something awful might happen: 1 = Several days Total EMIL-7 score (0-4 normal; 5-9 mild; 10-14 moderate; 15-21 severe): 17 Source: Developed by Jaye Cruz B[employer]W. [employer], Carl Gaona and colleagues, with an educational kalpana from [employer]. EMIL-7 Assessment Billing EMIL-7 Assessment Tool: EMIL-7 Assessment 14046 Review of Systems Const Denies headache(s) Eyes Denies loss of vision ENT Denies vertigo, Denies dizziness, Denies headache(s) and Denies sore throat Card Denies chest pain, Reports chest pain at rest, Denies leg edema and Denies lightheadedness Resp Denies cough, Denies hemoptysis and Denies wheezing GI Denies abdominal pain, Denies melena, Denies constipation, Denies diarrhea and Denies vomiting Denies urinary frequency, Denies dysuria and Denies urinary urgency Musc Denies arthralgias, Denies joint swelling, Denies numbness and Denies tingling Neuro Denies Abnormal speech present, Denies behavioral changes, Denies vertigo, Denies dizziness, Denies headache(s), Denies loss of vision, Denies memory loss, Denies numbness and Denies tingling Psych Denies anxiety, Denies behavioral changes, Denies depression, Denies memory loss and Denies panic attacks Swapnil/Lymph Denies easy bleeding and Denies easy bruising Aller/Immun Denies wheezing Physical exam (Primary Care) Vital Signs: Last Vital Signs Pulse 75 06/12/23 14:11 BP 118/78 06/12/23 14:11 Pulse Ox 95 06/12/23 14:11 Oxygen Delivery Method Room Air 06/12/23 14:11 BMI result Body Mass Index 31.7 BMI Assessment/Plan discussion: High Tobacco/Smoking Status: Tobacco use Status Tobacco use date assessed 11/01/22 06/12/23 14:10 Patient Tobacco Use Status Former Tobacco user 06/12/23 14:10 e-Cigarette/Vaping Use Never Used 06/12/23 14:10 PHQ-9: PHQ-9 Score PHQ-9: Total score 18 06/12/23 14:25 Depression Screening Interpretation: Positive Thrive Assessment: Date of Thrive Assessment Date Thrive assessed 11/01/22 06/12/23 14:10 Currently or been in a relationship where the following occur: no concerns reported Const Other: Obese General: healthy appearing, no acute distress, alert and awake Nutritional Appearance: well nourished Orientation/consciousness: oriented to person, oriented to place and oriented to time HENMT Ears: TM's normal bilaterally General nose exam: Normal nasal mucous membranes and turbinates present Eyes Conjunctivae: conjunctivae normal Sclerae: sclerae normal Pupils: Equal, round and reactive pupils present Neck Neck: Yes no lymphadenopathy and Yes no JVD Thyroid: Thyroid normal Carotids: no bruits Resp Effort & Inspection: normal respiratory effort and not tachypneic Auscultation: no crackles, no rales, no rhonchi and no wheezes Cardio Rate: regular rate Rhythm: regular rhythm Heart sounds: no murmurs and normal S1 and S2 GI Palpation (GI): Soft to palpation, nontender, no hepatomegaly and no splenomegaly Auscultation: normal bowel sounds Skin General skin exam: no rashes or lesions noted and dry skin Neuro General: oriented to person, oriented to place and oriented to time Cranial nerves: Yes Equal, round and reactive pupils present Speech: No Abnormal speech present Gait exam (Neuro): Normal gait present Motor exam (neuro): no tremor noted Extrem Right upper extremity: full ROM Left upper extremity: full ROM Right lower extremity: full ROM; no edema Left lower extremity: full ROM; no edema Psych Mental Status: mental status grossly normal Speech and movement: Normal speech and movement present Affect: normal affect Attitude: cooperative Thought process: Normal thought process present Results AMB Hemoglobin A1c AMB Hemoglobin A1c 6.1 % Last Edit by Neha Lopez MA on 06/12/23 14:25 Results Reviewed Results Reviewed: Laboratory Last Values Hgb A1c (Clinic) 6.1 % (4.0-6.0) H 06/12/23 14:24 Assessment and Plan Assessment & Plan (1) HTN (hypertension): Code(s): I10 - Essential (primary) hypertension Qualifiers: Hypertension type: essential hypertension Qualified Code(s): I10 - Essential (primary) hypertension Plan: Patient's blood pressure acceptable today in office. Will continue her current dose of antihypertensive medication with goal blood pressure to be below 140/90 (2) Plantar fasciitis of left foot: Code(s): M72.2 - Plantar fascial fibromatosis Plan: Has had a 6 month history of left foot pain, have seen at ER and October of 2022. Advised on conservative management with cool compress, plantar stretches. Will refer to Podiatry for possible cortisone injection in the plantar region. (3) Esophageal spasm: Code(s): K22.4 - Dyskinesia of esophagus Plan: Patient is to be having esophageal spasms. Most recent endoscopy showing torturous esophagus. She reports having an episode her sharp mid chest pain. Will supply with dicyclomine to use during flares. (4) Type 2 diabetes mellitus: Code(s): E11.9 - Type 2 diabetes mellitus without complications Qualifiers: Diabetes mellitus complication status: without complication Diabetes mellitus senior fund accountant insulin use: with senior fund accountant use Qualified Code(s): E11.9 - Type 2 diabetes mellitus without complications; Z79.4 - halfway (current) use of insulin Plan: Patient's type 2 diabetes well controlled with current dose of metformin a 1000 b.i.d.. She would like to transition Trulicity for the added benefit of weight loss. Goal A1c is to remain below 7.0 (5) Obese: Code(s): E66.9 - Obesity, unspecified Qualifiers: Body mass index: BMI 31.0-31.9 Obesity classification: adult class 1 (BMI 30 - 34.9) Obesity type: due to excess calories Serious obesity comorbidity presence: with serious comorbidity Qualified Code(s): E66.09 - Other obesity due to excess calories; Z68.31 - Body mass index [BMI] 31.0-31.9, adult Plan: Patient does understand her BMI is over 30 will continue working on following better eating habits to reduce her weight. She would like to try Trulicity to help with weight loss as well. Orders: Orders Comprehensive [place]. Panel Fast 3 Months E11.9 - Type 2 diabetes mellitus without complications, Z79.4 - halfway (current) use of insulin Lipase 06/12/23 R10.13 - Epigastric pain Lipid Panel 3 Months E78.5 - Hyperlipidemia, unspecified Complete Blood Count no Diff 3 Months I10 - Essential (primary) hypertension Complete Blood Count no Diff 06/12/23 Z01.818 - Encounter for other preprocedural examination AMB Hemoglobin A1c 06/12/23 E11.9 - Type 2 diabetes mellitus without complications Referrals Podiatry Referral M72.2 - Plantar fascial fibromatosis Medications: New dicyclomine 20 mg PO BID 10 days PRN 20 tabs 0RF abdominal pain K22.4 - Dyskinesia of esophagus Changed From metformin 1,000 mg PO BID 180 tabs 2RF E11.9 - Type 2 diabetes mellitus without complications To metformin 1,000 mg PO BID 90 days 180 tabs 2RF E11.9 - Type 2 diabetes mellitus without complications Refilled ibuprofen 800 mg PO Q8H 15 days PRN 45 tabs 2RF pain K62.89 - Other specified diseases of anus and rectum blood sugar diagnostic (FreeStyle Precision Steffen Strips) As directed once daily 50 ea 6RF E11.9 - Type 2 diabetes mellitus without complications, Z79.4 - halfway (current) use of insulin Discontinued telmisartan 20 mg PO DAILY 90 days 90 tabs 2RF I10 - Essential (primary) hypertension Coding Level of Care Code Est Pt Level 4 (98659) Diagnoses HTN (hypertension) I10 Hypertension type: essential hypertension Plantar fasciitis of left foot M72.2 Esophageal spasm K22.4 Type 2 diabetes mellitus E11.9; Z79.4 Diabetes mellitus complication status: without complication Diabetes mellitus senior fund accountant insulin use: with senior fund accountant use Obese E66.09; Z68.31 Body mass index: BMI 31.0-31.9 Obesity classification: adult class 1 (BMI 30 - 34.9) Obesity type: due to excess calories Serious obesity comorbidity presence: with serious comorbidity Additional Codes EMIL-7 Assessment Billing - EMIL-7 Assessment Tool: EMIL-7 Assessment 43642 ([id number])
[2023-06-12 14:11] VITALS: BP 118/78; PULSE 75; O2SAT 95; BMI 31.7
== END 2023-06-12 15:06 | disposition home or self-care (01) ==
PROVIDERS: PCP Physician Assistant; Visit Provider Physician Assistant
DX: I10 Essential (primary) hypertension (principal); E11.9 Type 2 diabetes mellitus without complications; K22.4 Dyskinesia of esophagus; Z79.4 Long term (current) use of insulin; Z68.31 Body mass index [BMI] 31.0-31.9, adult; M72.2 Plantar fascial fibromatosis; E66.09 Other obesity due to excess calories
CPT/HCPCS: 83036; 99214

== ENCOUNTER 2023-06-12 15:14 | Outpatient (REF) | payer OTHER, SELFPAY ==
[2023-06-12 16:11] LABS: Hematocrit 40.6 % (37.0-47.0); Hemoglobin 13.6 g/dl (12.0-16.0); Mean Corpuscular HGB Conc 33.5 g/dl (31.0-35.0); Mean Corpuscular Hemoglobin 28.3 pg (27.0-33.0); Mean Corpuscular Volume 84.6 fL (80.0-98.0); Mean Platelet Volume 9.1 fL (9.4-12.3); Platelet Count 270 X10*3/uL (160-400); Red Cell Distribution Width 12.5 % (11.0-16.0); White Blood Count 6.3 X10*3/uL (4.8-10.8)
[2023-06-12 16:37] LABS: Lipase 59 U/L (8-78)
== END 2023-06-12 15:15 | disposition home or self-care (01) ==
LOC: HO.LAB 15:14
PROVIDERS: PCP Physician Assistant; Visit Provider Physician Assistant
DX: Z01.818 Encounter for other preprocedural examination (principal); R10.13 Epigastric pain; E11.9 Type 2 diabetes mellitus without complications
CPT/HCPCS: 36415; 83690; 85027

== ENCOUNTER 2023-06-20 11:29 | Outpatient (AMB) | payer OTHER, SELFPAY ==
--- NOTE | 2023-06-20 11:38 | MHC.OFFVIS ---
Intake Vital Signs 06/20/23 11:45 Height 5 ft 6 in Weight 196 lb BMI 31.6 BP 125/75 Blood Pressure Location Lt brachial Position Sitting Pulse 72 Intake Visit Reasons: 6 Month Follow Up Intake Note: Patient follow up Anal fissure, Colonoscopy/EGD, lab and fecal results. Patient cc: Esophagus discomfort, some dysphagia, acid reflex on and off. Wafer Cleaner Required: No Accompanied by: Self / Same As Patient Allergies seafood Allergy (Unknown, Verified 06/20/23 11:38) Unknown lisinopril Adverse Reaction (Unknown, Verified 06/20/23 11:38) cough Medication List - Last Reconciled 06/20/23 by Shabnam Hitchcock MD acetaminophen (Tylenol Extra Strength) 1,000 mg (2 x 500 mg) PO QID PRN albuterol sulfate 2.5 mg (3 mL) inhalation Q6H PRN 30 days albuterol sulfate 90 mcg/actuation 2 puffs inhalation QID 30 days atorvastatin 40 mg PO BEDTIME blood sugar diagnostic (FreeStyle Precision Steffen Strips) As directed once daily blood-glucose meter (FreeStyle Precision Steffen Meter) As directed cetirizine 10 mg PO DAILY PRN 90 days cholecalciferol (vitamin D3) 25 mcg PO DAILY 90 days citalopram 20 mg PO DAILY clonazepam 1 mg PO BID PRN dicyclomine 20 mg PO BID PRN 10 days dulaglutide (Trulicity) 0.75 mg (0.5 mL) subcut QWEEK 4 weeks famotidine (Pepcid) 40 mg PO BEDTIME 90 days fenofibrate nanocrystallized 48 mg PO DAILY fluticasone propion-salmeterol 250-50 mcg/dose (Advair Diskus) 1 inh inhalation BID 30 days fluticasone propionate 110 mcg/actuation (Flovent HFA) 1 puff inhalation BID 30 days gabapentin 400 mg PO BID 90 days ibuprofen 800 mg PO Q8H PRN 15 days metformin 1,000 mg PO BID 90 days omeprazole 40 mg PO DAILY 30 days polymyxin B sulf-trimethoprim 10,000 unit- 1 mg/mL 1 drp ophthalmic (eye) Q4H 7 days pyridoxine (vitamin B6) 100 mg (2 x 50 mg) PO DAILY 90 days telmisartan (Micardis) 20 mg PO DAILY tramadol 50 mg PO DAILY 10 days zolpidem 10 mg PO BEDTIME HPI 6 Month Follow Up HPI Details GI CLINIC VISIT FOR THIS 58-YEAR-OLD FEMALE FOR RECTAL PAIN. PT IS FOLLOWED IN GI FOR DYSPHAGIA AND EPIGASTRIC PAIN. PATIENT IS STATUS POST LAP BAND SURGERY IN 2010 AND LAP BAND WAS REMOVED IN 2015. Pt was seen by Dr Parry for anal pain and treated with topical NTG followed by Nifedipine Pelvic CT scan was negative for perianal abscess. ?CHRONIC ILLNESSES:?hypercholesterolemia, depression, anxiety, asthma, hemorrhoids, hypertention diabetes type II, nephrolithiasis ? [facility] Review[facility] ? Stool antigen for C Diff was positive ON AND February and negative on 10/08/19 ?IMAGING STUDIES: 07/2021 GASTRIC EMPTYING STUDY SHOWED: No abnormal retention of solid food is noted. Gastric emptying is more rapid than normal, a finding of uncertain clinical significance. ?09/13/[address] SCAN SHOWED: ? Mild right hydroureteronephrosis. 0.5 cm calculus at the right ureterovesicular junction. ? Hepatomegaly with hepatic steatosis. 07/15 Barium swallow showed: ? Delay in passage of a 13 mm barium tablet across the gastroesophageal junction, raising the possibility of underlying stricturing. ? No delay in liquid barium passage across the gastroesophageal junction. ENDOSCOPIC STUDIES: ? 04/2023 EGD AND COLONOSCOPY SHOWED: ESOPHAGUS: Tortuous esophagus with increased tertiary contractions without stricture or ring - biopsies obtained during past EGD were negative for EOE.?? GE junction at 36 cms.? Minimal focal esophagitis at GE junction and no Garcia's. Empiric balloon dilation was performed with a 20 mm (60 F) CRE balloon x 60 sec STOMACH: Mild gastritis DUODENUM: A small benign appearing polyp was biopsied in the duodenal bulb. Biopsied obtained from 3rd part of the duodenum to check for celiac sprue Colonoscopy Findings: One polyp was biopsied - biopsies showed lymphoid aggregates. Random biopsies obtained from the right and left colon to check for microscopic colitis Moderate diverticulosis seen in the sigmoid colon Small hemorrhoids on retroflexed exam. Colon aspirate was sent for C Diff toxin Plan: Repeat Colonoscopy interval based on path results - in 3-5 years if polyps are adenomatous and 10 years if polyps are hyperplastic. 12/16/20 EGD SHOWED: ESOPHAGUS: Tortuous esophagus with increased tertiary contractions without stricture or ring - biopsies were obtained from proximal esophagus to check for EOE. GE junction at 36 cms.? Prominent folds at GE junction - biopsied.? No esophagitis or Garcia Balloon dilation was performed with 19 and 20mm CRE balloon x 60 seconds at each level STOMACH: Gastritis with a few superficial antral erosions likely due to NSAIDS DUODENUM: Normal - biopsied to check for celiac sprue. Plan:? Patient has an appointment on 01/19/21 in the GI Clinic with Shabnam Hitchcock M.D. If symptoms persist, further evaluation with a chest CT scan will be scheduled Above findings were reviewed with the patient and Gastritis handout was given in the discharge area BIOPSIES SHOW: A.? Small bowel, biopsy:? Small bowel mucosa within normal limits; preserved villous architecture and no increased intraepithelial lymphocytes. B. Stomach, antrum, biopsy:? Gastric antral mucosa with mild chronic inactive gastritis; negative for Helicobacter pylori, intestinal metaplasia and dysplasia. C. Esophagus, proximal, biopsy:? Squamous mucosa within normal limits; negative for inflammation (including eosinophils), fungal organisms, intestinal metaplasia and dysplasia. D. Gastroesophageal junction, biopsy:? Gastric cardia-type mucosa with mild chronic inactive inflammation; no squamous mucosa seen; negative for intestinal metaplasia or dysplasia. 07/2018 EGD WITH ESOPHAGEAL BALLOON DILATION WAS PERFORMED BY DR. JENKINS: ? 1. Distal esophageal ring (question of muscular). ? 2. Superficial gastritis. BIOPSIES SHOWED: Fragments of unremarkable fundic-type gastric mucosa. The Helicobacter pylori immunohistochemical stain is negative. ?? ? IMPEDENCE TESTIN HR AMBULATORY pH-IMPEDENCE TESTING WITH HIGH RESOLUTION ESOPHAGEAL MANOMETRY: ? Normal UES function, Normal LES length ? Normal LES/EGJ resting pressure, Normal LES relaxation ? No hiatal hernia was detected manometrically ? Shohola Classificat ion 3.0: Normal Esophageal contractility. ?TODAY'S VISIT EGD and colon results reviewed with the patient. Notes upper abdominal discomfort. Feels food is moving slowly in the lower esophagus. Had choking with a piece of meat Gives a hx of colon polyps in the past Diarrhea is better - taking probiotics Niece has stage 4 lung cancer and rapidly declining and on being placed under hospice care. Patient cc: Nauseas, abdominal pain/bloating, and diarrhea on and off, also she is been having some swallowing problems. Diarrhea comes and goes. Notes post prandial nausea and sometimes diarrhea. Stool is frothy and floats on the toilet water. She also complains of bad breath - which is new (states dental check up was normal) Notes diarrhea with everything she eats. Intermittent abdominal bloating When she eats she feels she has eaten a ton of food. Has symptoms with solid food and not with soups. Denies nausea or vomiting. SANDOVAL x 4 days - COVID test was negative. Notes cramps in the abdominal wall when she moves from side to side - likely musculoskeletal. PAST VISITS: Had diarrhea lasting for a week associated with incontinence. Has diarrhea alternating with constipation - saw some blood in the stool Takes Omeprazole prn for heartburn She is having abdominal pain. She was in the ER on 06/11/22 with left flank pain and had blood in the urine. Diagnosed with kidney stones and had a strong pain on 06/12 and felt better - thinks she passed the stone - though did not see it. Has noted a burning upper abdominal/epigastric pain for the past 2 days. Pain is constant and 7/10. Did not have anything to eat today Denies radiation to the back, or aggravating or relieving factors. Had similar pain a long time ago. Denies fever, chills - noted sweating at night. Nausea resolved when she passed the stone. Denies change in appetite, some intentional wt loss Clinic visit was converted to a telemedicine visit since patient is having cough with asthma exacerbation. Treated with Z-Dave followed by doxycycline and high-dose prednisone. Continues to have rectal pain. Seen by PCP and diagnosed with hemorrhoids and prescribed preparation H. Has been on antibiotic and taking probiotics Having more frequent BMs? - 4-5 episodes yesterday. Denies rectal bleeding Pt states I am feeling much better than the last time. I am feeling good. Abd pain and diarrhea has resolved. Bad breath has improved with medications. Has 2 BMs a day - depending on her diet. Last episode of diarrhea started after she had antibiotics for sinus infection Recurrent diarrhea with abd pain x 2 weeks Notes bad breath Notes sharp and throbbing pain in the rectum after having multiple episodes of diarrhea Chills at night which she attributes to menopause. 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 Type 2 diabetes mellitus Surgical History (Updated 06/20/23 @ 12:02 by Saira Khan) H/O hemorrhoidectomy H/O partial thyroidectomy (~2016) History of abdominoplasty History of bilateral breast reduction surgery (~2008) History of colonoscopy History of esophagogastroduodenoscopy (EGD) History of hysterectomy History of laparoscopic adjustable gastric banding (~2010) History of removal of laparoscopic gastric banding device (~2015) Hx laparoscopic cholecystectomy Hx of section Hx of colonoscopy (~11/2016) Hx of cosmetic surgery Hx of endoscopy Hx of lithotripsy Hx of tonsillectomy S/P anal fissurectomy S/P left oophorectomy Family History Father Diabetes Hypertension Depression Mother Lung cancer Diabetes Mental health disorder Brother HIV (human immunodeficiency virus infection) Depression Diabetes Sister Hypertension Diabetes Mental health disorder Daughter Mental health disorder Son Mental health disorder Social History Household Members: Children Housing: House Alcohol intake: current Alcohol intake frequency: holidays/special occasions only Patient Tobacco Use Status: Former Tobacco user Quit Date: 16 yrs ago e-Cigarette/Vaping Use: Never Used Second Hand Smoke Exposure: No service: No Current occupational status: disabled Cognitive needs: No Hearing needs: No Vision needs: Yes Review of Systems Const All systems reviewed & are unremarkable except as noted in HPI and below Physical Exam Vital Signs: Last Vital Signs Pulse 72 06/20/23 11:45 BP 125/75 06/20/23 11:45 BMI result Body Mass Index 31.6 Const General: healthy appearing and no acute distress Nutritional Appearance: obese Orientation/consciousness: patient oriented x3 Limitations: no limitations HEENT Head: Yes normal to inspection Ears: hearing grossly normal bilaterally Eyes Sclerae: sclerae normal Pupils: Equal, round and reactive pupils present Neck Neck: Yes normal visual inspection Chest Chest palpation & inspection: normal inspection of the chest Resp Effort & Inspection: normal respiratory effort Auscultation: clear to auscultation bilaterally Cardio Palpation: normal PMI Rate: regular rate Rhythm: regular rhythm Heart sounds: S1 normal heart sound present, S2 normal heart sound present and no murmurs GI Palpation (GI): Soft to palpation, nontender and No hepatosplenomegaly present Auscultation: normal bowel sounds Rectal Exam - Female: deferred Skin General skin exam: no rashes or lesions noted Neuro General: patient oriented x3, gait normal and moves all extremities Cranial nerves: Yes Equal, round and reactive pupils present Psych Appearance: grossly normal Mental Status: mental status grossly normal Assessment & Plan Assessment & Plan (1) Esophageal spasm: Code(s): K22.4 - Dyskinesia of esophagus (2) Epigastric pain: Code(s): R10.13 - Epigastric pain (3) Colon cancer screening: Comment: 11/2016 a diminutive polyp was removed during colonoscopy by Dr. Jenkins. Repeat colonoscopy was advised in 10 years. Code(s): Z12.11 - Encounter for screening for malignant neoplasm of colon (4) Abdominal bloating: Code(s): R14.0 - Abdominal distension (gaseous) (5) Hemorrhoids: Code(s): K64.9 - Unspecified hemorrhoids (6) GERD (gastroesophageal reflux disease): Code(s): K21.9 - Gastro-esophageal reflux disease without esophagitis Qualifiers: Esophagitis presence: with esophagitis Esophagitis bleeding: without hemorrhage Qualified Code(s): K21.00 - Gastro-esophageal reflux disease with esophagitis, without bleeding (7) Clostridioides difficile infection: Code(s): A49.8 - Other bacterial infections of unspecified site Plan 58 YF with hypercholesterolemia, depression, anxiety, asthma, hemorrhoids, hypertension diabetes type II, migraine headache thyroid disease (S/p surgery with removal of 1/2 of the gland), nephrolithiasis followed in GI for dysphagia, known hx of Schatzki's ring, epigastric pain, diarrhea and constipation. Patient is status post cholecystectomy for gallstones. Pt has a hx of recurrent C Diff infection. Patient is status post lap band surgery in 2010 and lap band was removed in 2015. Patient states that she's had pain at her upper stomach ever since she had the band place and even after removal the pain still remains. Manometry study at [facility] was normal - no motility disorder was identified Patient has been referred to Dr Larsen for a 2nd opinion and appt was postponed due to COVID-19 pandemic and pt was not seen. 12/16/20 upper endoscopy with esophageal balloon dilation to 20mm (60 F) was performed without significant change in her symptoms. Pt has had recurrent C Diff since 2018 usually precipitated by antibiotic therapy. Last episode was in 03/2021 and treated with Vancomycin 125 mg four times daily x 10 days Patient was advised to continue HC cream/preparation H for hemorrhoids and referred to surgery. Pt advised to have a stool test checked for C Diff if she has recurrent diarrhea. 04/2023 EGD (FU of dysphagia) and colonoscopy were performed and results as noted above Patient advised repeat colonoscopy in 10 years. Stool studies showed C Diff colonization without infection Patient advised to continue with probiotics. Follow-up in 6 months Medications: Discontinued telmisartan 20 mg PO DAILY 90 days 90 tabs 2RF I10 - Essential (primary) hypertension Coding Level of Care Code Est Pt Level 4 (24271) Diagnoses Esophageal spasm K22.4 Epigastric pain R10.13 Colon cancer screening Z12.11 Abdominal bloating R14.0 Hemorrhoids K64.9 GERD (gastroesophageal reflux disease) K21.00 Esophagitis presence: with esophagitis Esophagitis bleeding: without hemorrhage Clostridioides difficile infection A49.8 Time Spent (min) 25
[2023-06-20 11:45] VITALS: BP 125/75; PULSE 72; BMI 31.6
== END 2023-06-20 13:09 | disposition home or self-care (01) ==
PROVIDERS: Visit Provider Internal Medicine Gastroenterology
DX: K22.4 Dyskinesia of esophagus (principal); R10.13 Epigastric pain; Z12.11 Encounter for screening for malignant neoplasm of colon; R14.0 Abdominal distension (gaseous); K64.9 Unspecified hemorrhoids; K21.00 Gastro-esophageal reflux disease with esophagitis, without bleeding; A49.8 Other bacterial infections of unspecified site
CPT/HCPCS: 99214

== ENCOUNTER → 2023-06-20 11:29 | Outpatient (BNVA) | payer OTHER, SELFPAY | PROVIDERS: Visit Provider Internal Medicine Gastroenterology | DX: K22.4 Dyskinesia of esophagus (principal); R10.13 Epigastric pain; R14.0 Abdominal distension (gaseous); K64.9 Unspecified hemorrhoids; K21.00 Gastro-esophageal reflux disease with esophagitis, without bleeding; A49.8 Other bacterial infections of unspecified site; Z98.890 Other specified postprocedural states | CPT/HCPCS: 99212 ==

== ENCOUNTER 2023-08-17 14:04 | Outpatient (AMB) | payer OTHER, SELFPAY ==
--- NOTE | 2023-08-17 14:08 | MHC.OFFWIV ---
Intake Vital Signs 08/17/23 14:17 Height 5 ft 6 in Weight 89.811 kg BMI 32.0 BP 110/60 Blood Pressure Location Lt brachial Pulse 86 Pulse Source Pulse Oximeter Temp 96.8 F Temp Source Oral Pulse Oximetry (%) 97 Oxygen Delivery Method Room Air Intake Visit Reasons: EP, cough, congestion, fatigue Intake Note: pt is here today for cough, congestion,fatigue Patient Tobacco Use Status: Former Tobacco user Quit Date: 16 yrs ago Allergies seafood Allergy (Unknown, Verified 08/17/23 14:16) Unknown lisinopril Adverse Reaction (Unknown, Verified 08/17/23 14:16) cough HPI HPI Comments History of Present Illness Details 1409 58 year old female hx of DM, htn, hld, obesity s/p surgery in 2010 and lap band removal in 2015 presents w/ complaints of fatigue, malaise, congestion, cough, myalgias going on for the past few days worsening. Denies sick contacts. Denies fevers, chills, chest pain, shortness of breath, nausea, vomiting, abdominal pain, diarrhea. Physical exam w/ wheezing throughout Likely viral illness versus bacterial bronchitis versus asthma . Unlikely PE, pneumonia, ACS. No signs of acute respiratory distress Plan at this time viral test. Will discharge with zpack, prednisone. Educated patient on diagnosis and treatment plan, answered all question, patient verbalizes understanding. At this time patient will be discharged home, advised to return with new or worsening symptoms. Educated on worrisome signs and symptoms and when to return. At this time I feel comfortable discharge home. [facility] Medical History History of panic attacks Asthma Anal fissure Anal pain Pulmonary nodules Hx of renal calculi Flu-like symptoms Spondylosis of lumbar spine Fibromyalgia Dyslipidemia Obesity, Class I, BMI 30-34.9 Nephrolithiasis Recurrent Clostridioides difficile infection Hx of thyroid nodule Back pain Arthritis Depression Anxiety Type 2 diabetes mellitus HLD (hyperlipidemia) GERD (gastroesophageal reflux disease) HTN (hypertension) Surgical History History of esophagogastroduodenoscopy (EGD) Hx of cosmetic surgery Hx of tonsillectomy Hx of section Hx of lithotripsy Hx of endoscopy Hx of colonoscopy (~11/2016) S/P anal fissurectomy H/O hemorrhoidectomy Hx laparoscopic cholecystectomy S/P left oophorectomy H/O partial thyroidectomy (~2016) History of removal of laparoscopic gastric banding device (~2015) History of abdominoplasty History of colonoscopy History of laparoscopic adjustable gastric banding (~2010) History of bilateral breast reduction surgery (~2008) History of hysterectomy Family History Father Diabetes Hypertension Depression Mother Lung cancer Diabetes Mental health disorder Brother HIV (human immunodeficiency virus infection) Depression Diabetes Sister Hypertension Diabetes Mental health disorder Daughter Mental health disorder Son Mental health disorder Social History Household Members: Children Housing: House Alcohol intake: current Alcohol intake frequency: holidays/special occasions only Patient Tobacco Use Status: Former Tobacco user Quit Date: 16 yrs ago e-Cigarette/Vaping Use: Never Used Second Hand Smoke Exposure: No service: No Current occupational status: disabled Cognitive needs: No Hearing needs: No Vision needs: Yes Review of Systems Const Details: Constitutional : No Weight loss, No Fever, No Chills, + Fatigue, + Malaise ENT/Mouth : No sore throat, No Rhinorrhea, + congestion Eyes: No Eye Pain, No Swelling, No Redness Cardiovascular : No Chest Pain, No SOB, No Dyspnea on Exertion, No Orthopnea, No Edema, No Palpitations Respiratory : + Cough, No Sputum, No Wheezing Gastrointestinal : No Nausea, No Vomiting, No Diarrhea, No Constipation, No abdominal Pain, No Hematochezia, No Melena Genitourinary : No Dysuria, No Urinary Frequency, No Hematuria, Musculoskeletal : No joint pain, + Myalgias, No Joint Swelling Skin : No Skin Lesions, No rash Neuro : No Weakness, No Numbness, No Dizziness, No Headache Psych : No Anxiety/Panic, No Depression All other systems reviewed and are negative All systems reviewed & are unremarkable except as noted in HPI and below Physical Exam Vital Signs: Vital signs stable Appearance: Alert.? Oriented X3.? No acute distress.? Head: Normocephalic, atraumatic, no step-offs or deformities Eyes: Pupils equal, round and reactive to light.? ENT: Pharynx normal.? Neck: Normal inspection.? Neck supple.? CVS: Normal heart rate and rhythm.? Pulses normal.? Respiratory: No respiratory distress.? Breath sounds w/ wheezing throughout .? Abdomen: Soft and nontender.? Skin: Skin warm and dry.? Normal skin color.? Normal skin turgor.? Extremities: No lower extremity edema.? No calf ttp. 5/5 strength to bilateral upper and lower extremities Neuro: Oriented X 3.? No motor deficit.? No sensory deficit. CN 2-12 intact Assessment & Plan Assessment & Plan (1) Bronchitis: Code(s): J40 - Bronchitis, not specified as acute or chronic Plan Take your medications as prescribed. If you were prescribed antibiotics today, it is important that you take your medication to their entirety, do not skip any doses, do not finish them early. Follow-up with your primary care provider this week. Return to the emergency department with new or worsening symptoms. Such as fevers, chills, chest pain, shortness of breath, nausea, vomiting, dizziness, headache, vision changes, lethargy In case of emergency call 911 Orders: Orders BinaxNOW Covid-19 Ag Today B34.9 - Viral infection, unspecified XR chest 2V Today J40 - Bronchitis, not specified as acute or chronic Medications: New prednisone 40 mg (2 x 20 mg) PO DAILY 5 days 10 tabs 0RF benzonatate 100 mg PO BID PRN 14 caps 0RF cough doxycycline hyclate 100 mg PO BID 14 caps 0RF 7 days albuterol sulfate 2.5 mg (0.5 mL) inhalation Q6H PRN 20 mL 0RF shortness of breath or wheezing albuterol sulfate 90 mcg/actuation 2 puffs inhalation Q6H PRN 6.7 grams 0RF shortness of breath or wheezing Coding Level of Care Code Est Pt Level 3 (05095) Diagnoses Bronchitis J40
[2023-08-17 14:17] VITALS: BP 110/60; PULSE 86; TEMP 36; O2SAT 97; BMI 32.0
== END 2023-08-17 14:58 | disposition home or self-care (01) ==
PROVIDERS: PCP Physician Assistant; Visit Provider Physician Assistant
DX: J40 Bronchitis, not specified as acute or chronic (principal)
CPT/HCPCS: 99213

== ENCOUNTER 2023-08-17 14:18 | Outpatient (REF) | payer OTHER, SELFPAY ==
--- NOTE | ~2023-08-17 | XR_ITS ---
EXAMINATION: XR CHEST CLINICAL INFORMATION: Bronchitis. COMPARISON: Chest x-ray 02/26/2022. CT chest 04/13/2022. TECHNIQUE: 2 views of the chest were obtained. FINDINGS: The cardiomediastinal silhouette is stable. Airway wall thickening similar to prior study. No consolidation. No effusion or pneumothorax. Mild degenerative changes in the thoracic spine. XR/XR chest 2V IMPRESSION: Stable chest x-ray with chronic airway wall thickening. No focal pneumonia.
[2023-08-17 14:47] LABS: Binax Internal Control QC Valid; Binax Now Covid-19 Ag Negative (Negative)
== END 2023-08-17 14:19 | disposition home or self-care (01) ==
LOC: HO.HMGCX 14:18
PROVIDERS: PCP Physician Assistant; Visit Provider Physician Assistant
DX: J40 Bronchitis, not specified as acute or chronic (principal); B34.9 Viral infection, unspecified
CPT/HCPCS: 71046; 87811

== ENCOUNTER 2023-09-18 09:41 | Outpatient (AMB) | payer OTHER, SELFPAY ==
[2023-09-18 09:42] VITALS: BP 114/72; PULSE 80; O2SAT 98; BMI 32.2
--- NOTE | 2023-09-18 09:42 | MHC.PC.OV ---
Vital Signs 09/18/23 09:42 Height 5 ft 6 in Weight 199 lb 4 oz BMI 32.2 BP 114/72 Blood Pressure Location Lt brachial Position Sitting Pulse 80 Pulse Source Pulse Oximeter Pulse Oximetry (%) 98 Oxygen Delivery Method Room Air Intake Visit Reasons: Follow-up diabetes Intake Note: Patient has come for a follow-up regarding Type 2 diabetes mellitus (DMII). The patient's current concerns include experiencing wheezing from the left lobe and noting unusually hot urine. Boom Supervisor Required: No Accompanied by: Self / Same As Patient Allergies seafood Allergy (Unknown, Verified 09/18/23 10:12) Unknown lisinopril Adverse Reaction (Unknown, Verified 09/18/23 10:12) cough Medication List - Last Reconciled 09/18/23 by Silvino Andujar PA-C acetaminophen (Tylenol Extra Strength) 1,000 mg (2 x 500 mg) PO QID PRN albuterol sulfate 90 mcg/actuation 2 puffs inhalation QID 30 days albuterol sulfate 2.5 mg (3 mL) inhalation Q6H PRN 30 days atorvastatin 40 mg PO BEDTIME blood sugar diagnostic (FreeStyle Precision Steffen Strips) As directed once daily blood-glucose meter (FreeStyle Precision Steffen Meter) As directed cetirizine 10 mg PO DAILY PRN 90 days cholecalciferol (vitamin D3) 25 mcg PO DAILY 90 days citalopram 20 mg PO DAILY clonazepam 1 mg PO BID PRN dicyclomine 20 mg PO BID PRN 10 days dulaglutide (Trulicity) 0.75 mg (0.5 mL) subcut QWEEK 4 weeks famotidine (Pepcid) 40 mg PO BEDTIME 90 days fenofibrate nanocrystallized 48 mg PO DAILY fluticasone propion-salmeterol 250-50 mcg/dose (Advair Diskus) 1 inh inhalation BID 30 days fluticasone propionate 110 mcg/actuation (Flovent HFA) 1 puff inhalation BID 30 days gabapentin 400 mg PO BID 90 days ibuprofen 800 mg PO Q8H PRN 15 days metformin 1,000 mg PO BID 90 days omeprazole 40 mg PO DAILY polymyxin B sulf-trimethoprim 10,000 unit- 1 mg/mL 1 drp ophthalmic (eye) Q4H 7 days pyridoxine (vitamin B6) 100 mg (2 x 50 mg) PO DAILY 90 days telmisartan (Micardis) 20 mg PO DAILY tramadol 50 mg PO DAILY 10 days zolpidem 10 mg PO BEDTIME Tobacco use date assessed: 11/01/22 Dental Screening Dental Screen Date: 09/18/23 Did you have a dental visit in the last 12 months?: Yes Did you have a dental problem in the last 6 months where you did not have access to dental care?: No Was dental information given to patient?: Patient has dentist HPI Follow-up diabetes HPI Details Patient is a 58-year-old female here today for follow-up visit.? Patient has a past medical history significant for type 2 diabetes, hypertension, obesity, recurrent C diff colitis, moderate persistent asthma, pulmonary nodule, major depressive disorder and generalized anxiety disorder. Concerns--> reports over the last 2 months has been experiencing some stress incontinence which she finds very embarrassing. She has had multiple pregnancies in her lifetime. She is interested in starting a medication and perhaps doing pelvic floor therapy to help gain strength over pelvic floor. Also continues to have pain in her left plantar region , has been referred to Podiatry though has never gotten a call. .. Type 2 diabetes:? Diabetes under fair control. Has not started Trulicity and willing to do so. Is interested in reducing and weaning off of metformin.? She reports the metformin causes her some GI upset and increased diarrhea even in the setting of her C diff colitis.? PLAN:? Again will trial Trulicity as alternative to metformin.? Did discuss the side effects of this medication early on in treatment course. If starting Trulicity advised her reduce her metformin dose to half 500 mg b.i.d. ? . Asthma: Reports traveling from [place] in the keiry upper respiratory viral illness. This has been bothering her asthma and reports feeling very short of breath and chest tightness. She continues with p.r.n. use of her albuterol inhaler and daily use of her Advair inhaler.? She denies any recent nighttime awakenings with asthma symptoms. ? . .. Major depressive disorder, generalized anxiety disorder:? Continues to follow a mental therapist and a psychiatrist whom manage her mental health medications.? She feels fairly stable at this time with her mental health medications. ? [facility] Medical History History of panic attacks Asthma Anal fissure Anal pain Pulmonary nodules Hx of renal calculi Flu-like symptoms Spondylosis of lumbar spine Fibromyalgia Dyslipidemia Obesity, Class I, BMI 30-34.9 Nephrolithiasis Recurrent Clostridioides difficile infection Hx of thyroid nodule Back pain Arthritis Depression Anxiety Type 2 diabetes mellitus HLD (hyperlipidemia) GERD (gastroesophageal reflux disease) HTN (hypertension) Surgical History History of esophagogastroduodenoscopy (EGD) Hx of cosmetic surgery Hx of tonsillectomy Hx of section Hx of lithotripsy Hx of endoscopy Hx of colonoscopy (~11/2016) S/P anal fissurectomy H/O hemorrhoidectomy Hx laparoscopic cholecystectomy S/P left oophorectomy H/O partial thyroidectomy (~2016) History of removal of laparoscopic gastric banding device (~2015) History of abdominoplasty History of colonoscopy History of laparoscopic adjustable gastric banding (~2010) History of bilateral breast reduction surgery (~2008) History of hysterectomy Family History Father Diabetes Hypertension Depression Mother Lung cancer Diabetes Mental health disorder Brother HIV (human immunodeficiency virus infection) Depression Diabetes Sister Hypertension Diabetes Mental health disorder Daughter Mental health disorder Son Mental health disorder Household Members: Children Housing: House Alcohol intake: current Alcohol intake frequency: holidays/special occasions only Patient Tobacco Use Status: Former Tobacco user Quit Date: 16 yrs ago e-Cigarette/Vaping Use: Never Used Second Hand Smoke Exposure: No service: No Current occupational status: disabled Cognitive needs: No Hearing needs: No Vision needs: Yes Questionnaire Thrive Questionnaire Date Thrive assessed: 11/01/22 EMIL-7 AMB Questionnaire EMIL-7 Date EMIL - 7 assessed: 11/01/22 Source: Developed by Drs. Vazquez Holden, Jaye Ryan, Carl Gaona and colleagues, with an educational kalpana from [employer]. Review of Systems Const Denies headache(s) Eyes Denies loss of vision ENT Denies vertigo, Denies dizziness, Denies headache(s) and Denies sore throat Card Denies chest pain, Denies leg edema and Denies lightheadedness Resp Denies cough, Denies hemoptysis and Denies wheezing GI Denies abdominal pain, Denies melena, Denies constipation, Denies diarrhea and Denies vomiting Denies urinary frequency, Denies dysuria and Denies urinary urgency Musc Denies arthralgias, Denies joint swelling, Denies numbness and Denies tingling Neuro Denies Abnormal speech present, Denies behavioral changes, Denies vertigo, Denies dizziness, Denies headache(s), Denies loss of vision, Denies memory loss, Denies numbness and Denies tingling Psych Denies anxiety, Denies behavioral changes, Denies depression, Denies memory loss and Denies panic attacks Swapnil/Lymph Denies easy bleeding and Denies easy bruising Aller/Immun Denies wheezing Physical exam (Primary Care) Vital Signs: Last Vital Signs Pulse 80 09/18/23 09:42 BP 114/72 09/18/23 09:42 Pulse Ox 98 09/18/23 09:42 Oxygen Delivery Method Room Air 09/18/23 09:42 BMI result Body Mass Index 32.2 BMI Assessment/Plan discussion: High Tobacco/Smoking Status: Tobacco use Status Tobacco use date assessed 11/01/22 09/18/23 09:44 Patient Tobacco Use Status Former Tobacco user 09/18/23 09:44 e-Cigarette/Vaping Use Never Used 09/18/23 09:44 Thrive Assessment: Date of Thrive Assessment Date Thrive assessed 11/01/22 09/18/23 09:44 Const Other: Obese General: no acute distress, alert and awake Nutritional Appearance: well nourished Orientation/consciousness: oriented to person, oriented to place and oriented to time HENMT Ears: TM's normal bilaterally General nose exam: Normal nasal mucous membranes and turbinates present Eyes Conjunctivae: conjunctivae normal Sclerae: sclerae normal Pupils: Equal, round and reactive pupils present Neck Neck: Yes no lymphadenopathy and Yes no JVD Thyroid: Thyroid normal Carotids: no bruits Resp Effort & Inspection: normal respiratory effort and not tachypneic Auscultation: no crackles, no rales, no rhonchi and no wheezes Cardio Rate: regular rate Rhythm: regular rhythm Heart sounds: no murmurs and normal S1 and S2 GI Palpation (GI): Soft to palpation, nontender, no hepatomegaly and no splenomegaly Auscultation: normal bowel sounds Skin General skin exam: no rashes or lesions noted and dry skin Neuro General: oriented to person, oriented to place and oriented to time Cranial nerves: Yes Equal, round and reactive pupils present Speech: No Abnormal speech present Gait exam (Neuro): Normal gait present Motor exam (neuro): no tremor noted Extrem Right upper extremity: full ROM Left upper extremity: full ROM Right lower extremity: full ROM; no edema Left lower extremity: full ROM; no edema Psych Mental Status: mental status grossly normal Speech and movement: Normal speech and movement present Affect: normal affect Attitude: cooperative Thought process: Normal thought process present Results AMB Urinalysis, Automated UA Leukoctes 0 Lamonte/uL Last Edit by Yue Khan on 09/18/23 10:00 UA Nitrite Negative Last Edit by Yue Khan on 09/18/23 10:00 UA Urobilinogen 0 mg/dL Last Edit by Yue Khan on 09/18/23 10:00 UA Protein 0 mg/dL Last Edit by Yue Khan on 09/18/23 10:00 UA pH 6.0 Last Edit by Yue Khan on 09/18/23 10:00 UA Blood 0 Boogie/uL Last Edit by uYe Khan on 09/18/23 10:00 UA Specific Gilman 1.020 Last Edit by Yue Khan on 09/18/23 10:00 UA Ketone Negative Last Edit by Yue Khan on 09/18/23 10:00 UA Bilirubin 0 mg/dL Last Edit by Yue Khan on 09/18/23 10:00 UA Glucose 0 mg/dL Last Edit by Yue Khan on 09/18/23 10:00 AMB Hemoglobin A1c AMB Hemoglobin A1c 7.0 % Last Edit by Yue Khan on 09/18/23 10:01 Results Reviewed Results Reviewed: Laboratory Last Values Hgb A1c (Clinic) 7.0 % (4.0-6.0) H 09/18/23 09:51 Urine pH (Auto) 6.0 09/18/23 09:51 Specific Gilman (Auto) 1.020 09/18/23 09:51 Urine Protein (Auto) 0 mg/dL 09/18/23 09:51 Glucose (UA)(Auto) 0 mg/dL 09/18/23 09:51 Urine Ketones (Auto) Negative 09/18/23 09:51 Urine Blood (Auto) 0 Boogie/uL 09/18/23 09:51 Urine Nitrite (Auto) Negative 09/18/23 09:51 Urine Bilirubin (Auto) 0 mg/dL 09/18/23 09:51 Urine Urobilinogen (Auto) 0 mg/dL 09/18/23 09:51 Leukocyte Esterase (Auto) 0 Lamonte/uL 09/18/23 09:51 Assessment and Plan Assessment & Plan (1) Dysuria: Code(s): R30.0 - Dysuria Plan: Has signs symptoms consistent with stress incontinence. (2) HTN (hypertension): Code(s): I10 - Essential (primary) hypertension Qualifiers: Hypertension type: essential hypertension Qualified Code(s): I10 - Essential (primary) hypertension Plan: Patient's blood pressure acceptable today in office. Will continue her current dose of antihypertensive medication with goal blood pressure to be below 140/90 (3) Type 2 diabetes mellitus: Code(s): E11.9 - Type 2 diabetes mellitus without complications Qualifiers: Diabetes mellitus complication status: without complication Diabetes mellitus watermelon inspector insulin use: with watermelon inspector use Qualified Code(s): E11.9 - Type 2 diabetes mellitus without complications; Z79.4 - care home (current) use of insulin Plan: Patient's type 2 diabetes under fair control. Today's A1c is 7.0 She would like to transition Trulicity for the added benefit of weight loss. Goal A1c is to remain below 7.0 (4) Obese: Code(s): E66.9 - Obesity, unspecified Qualifiers: Body mass index: BMI 31.0-31.9 Obesity classification: adult class 1 (BMI 30 - 34.9) Obesity type: due to excess calories Serious obesity comorbidity presence: with serious comorbidity Qualified Code(s): E66.09 - Other obesity due to excess calories; Z68.31 - Body mass index [BMI] 31.0-31.9, adult Plan: Patient does understand her BMI is over 30 will continue working on following better eating habits to reduce her weight. She would like to try Trulicity to help with weight loss as well. (5) Stress incontinence: Code(s): N39.3 - Stress incontinence (female) (male) Plan: Likely will benefit from pelvic floor therapy. Will supply patient with oxybutynin to help with her spastic bladder pain (6) Plantar fasciitis of left foot: Code(s): M72.2 - Plantar fascial fibromatosis Plan: Has had a 6 month history of left foot pain, have seen at ER and October of 2022. Advised on conservative management with cool compress, plantar stretches. Will refer to Podiatry for possible cortisone injection in the plantar region. (7) Asthma: Code(s): J45.909 - Unspecified asthma, uncomplicated Qualifiers: Asthma complication type: uncomplicated Asthma persistence: intermittent Asthma severity: mild Qualified Code(s): J45.20 - Mild intermittent asthma, uncomplicated Plan: Reports recently have an asthma exacerbation secondary to upper respiratory viral illness. X-ray of chest showing some bronchial thickening. Will supply patient with azithromycin. We did discuss the possible side effects of recurrent C diff been patient does agree and understands and willing to take the risk. Will also supply patient with few days of prednisone for the lung inflation. Orders: Orders AMB Hemoglobin A1c Today E11.9 - Type 2 diabetes mellitus without complications Syphilis Screen Today Z11.3 - Encounter for screening for infections with a predominantly sexual mode of transmission CT NG by PCR Today Z11.3 - Encounter for screening for infections with a predominantly sexual mode of transmission, Z20.2 - Contact with and (suspected) exposure to infections with a predominantly sexual mode of transmission PT Evaluation and Treatment Today N39.3 - Stress incontinence (female) (male) AMB Urinalysis Automated Today R30.0 - Dysuria, R31.9 - Hematuria, unspecified HIV Ab/Ag Today Z11.3 - Encounter for screening for infections with a predominantly sexual mode of transmission Hepatitis B,C Profile Today Z11.3 - Encounter for screening for infections with a predominantly sexual mode of transmission Referrals Podiatry Referral M72.2 - Plantar fascial fibromatosis Medications: New azithromycin For 250 mg dose pack: take 500 mg today (day 1), then 250 mg for 4 days (days 2-5) PO 6 tabs 0RF J45.20 - Mild intermittent asthma, uncomplicated oxybutynin chloride ER 5 mg PO DAILY 30 tabs 3RF N39.3 - Stress incontinence (female) (male) prednisone 20 mg PO DAILY 7 days 7 tabs 0RF J45.20 - Mild intermittent asthma, uncomplicated Refilled atorvastatin 40 mg PO BEDTIME 90 tabs 2RF acetaminophen (Tylenol Extra Strength) 1,000 mg (2 x 500 mg) PO QID PRN 14 tabs 0RF fever or pain U07.1 - COVID-19 albuterol sulfate 2.5 mg (3 mL) inhalation Q6H 30 days PRN 180 mL 2RF shortness of breath or wheezing J45.20 - Mild intermittent asthma, uncomplicated tramadol 50 mg PO DAILY 10 days 10 tabs 0RF M54.16 - Radiculopathy, lumbar region ibuprofen 800 mg PO Q8H 15 days PRN 45 tabs 2RF pain K62.89 - Other specified diseases of anus and rectum gabapentin 400 mg PO BID 90 days 180 caps 2RF M47.816 - Spondylosis without myelopathy or radiculopathy, lumbar region, M79.7 - Fibromyalgia fluticasone propionate 110 mcg/actuation (Flovent HFA) 1 puff inhalation BID 30 days 12 grams 3RF J45.909 - Unspecified asthma, uncomplicated cholecalciferol (vitamin D3) 25 mcg PO DAILY 90 days 90 tabs 1RF Discontinued fluticasone propion-salmeterol 250-50 mcg/dose (Advair Diskus) Discontinued Reason: Doctor's Order 1 inh inhalation BID 30 days 60 ea 4RF J45.20 - Mild intermittent asthma, uncomplicated Coding Level of Care Code Est Pt Level 4 (26644) Diagnoses Dysuria R30.0 Essential hypertension I10 Hypertension type: essential hypertension Type 2 diabetes mellitus without complication, with long-term current use of insulin E11.9; Z79.4 Diabetes mellitus complication status: without complication Diabetes mellitus watermelon inspector insulin use: with watermelon inspector use Class 1 obesity due to excess calories with serious comorbidity and body mass index (BMI) of 31.0 to 31.9 in adult E66.09; Z68.31 Body mass index: BMI 31.0-31.9 Obesity classification: adult class 1 (BMI 30 - 34.9) Obesity type: due to excess calories Serious obesity comorbidity presence: with serious comorbidity Stress incontinence N39.3 Plantar fasciitis of left foot M72.2 Mild intermittent asthma without complication J45.20 Asthma complication type: uncomplicated Asthma persistence: intermittent Asthma severity: mild
== END 2023-09-18 10:36 | disposition home or self-care (01) ==
PROVIDERS: PCP Physician Assistant; Visit Provider Physician Assistant
DX: R30.0 Dysuria (principal); I10 Essential (primary) hypertension; E11.9 Type 2 diabetes mellitus without complications; Z79.4 Long term (current) use of insulin; E66.09 Other obesity due to excess calories; Z68.31 Body mass index [BMI] 31.0-31.9, adult; N39.3 Stress incontinence (female) (male); M72.2 Plantar fascial fibromatosis; J45.20 Mild intermittent asthma, uncomplicated; R31.9 Hematuria, unspecified
CPT/HCPCS: 81003; 83036; 99214

== ENCOUNTER 2023-10-03 13:25 | Outpatient (AMB) | payer OTHER, SELFPAY ==
[2023-10-03 13:28] VITALS: BP 114/68; PULSE 74; O2SAT 96; BMI 32.0
--- NOTE | 2023-10-03 13:28 | MHC.PC.OV ---
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 Retail Required: No Allergies seafood Allergy (Unknown, Verified 10/03/23 14:01) Unknown lisinopril Adverse Reaction (Unknown, Verified 10/03/23 14:01) cough Medication List - Last Reconciled 10/03/23 by VANIA Barton acetaminophen (Tylenol Extra Strength) 1,000 mg (2 x 500 mg) PO QID PRN albuterol sulfate 90 mcg/actuation 2 puffs inhalation QID 30 days albuterol sulfate 2.5 mg (3 mL) inhalation Q6H PRN 30 days atorvastatin 40 mg PO BEDTIME blood sugar diagnostic (FreeStyle Precision Steffen Strips) As directed once daily blood-glucose meter (FreeStyle Precision Steffen Meter) As directed cetirizine 10 mg PO DAILY PRN 90 days cholecalciferol (vitamin D3) 25 mcg PO DAILY 90 days citalopram 20 mg PO DAILY clonazepam 1 mg PO BID PRN dicyclomine 20 mg PO BID PRN 10 days dulaglutide (Trulicity) 0.75 mg (0.5 mL) subcut QWEEK 4 weeks famotidine (Pepcid) 40 mg PO BEDTIME 90 days fenofibrate nanocrystallized 48 mg PO DAILY fluticasone propionate 110 mcg/actuation (Flovent HFA) 1 puff inhalation BID 30 days gabapentin 400 mg PO BID 90 days ibuprofen 800 mg PO Q8H PRN 15 days metformin 1,000 mg PO BID 90 days omeprazole 40 mg PO DAILY oxybutynin chloride ER 5 mg PO DAILY polymyxin B sulf-trimethoprim 10,000 unit- 1 mg/mL 1 drp ophthalmic (eye) Q4H 7 days pyridoxine (vitamin B6) 100 mg (2 x 50 mg) PO DAILY 90 days telmisartan (Micardis) 20 mg PO DAILY tramadol 50 mg PO DAILY 10 days zolpidem 10 mg PO BEDTIME Tobacco use date assessed: 10/03/23 Dental Screening Dental Screen Date: 10/03/23 Did you have a dental visit in the last 12 months?: Yes Did you have a dental problem in the last 6 months where you did not have access to dental care?: No Was dental information given to patient?: Patient has dentist HPI Lower abdominal Pain HPI Details Patient is a 58-year-old female presents today for the same day visit due to low abdominal pain, burning with urination, urinary frequency, left flank stabbing mostly constant pain for the past 2 weeks. Patient reports history of kidney stones. Reports intermittent chills, no nausea or vomiting. Reports taking Motrin/Tylenol with no much improvement. Has only right ovary. Denies vaginal discharge. No shortness of breath or chest pain, no fever. [facility]LY [facility] Medical History History of panic attacks Asthma Anal fissure Anal pain Pulmonary nodules Hx of renal calculi Flu-like symptoms Spondylosis of lumbar spine Fibromyalgia Dyslipidemia Obesity, Class I, BMI 30-34.9 Nephrolithiasis Recurrent Clostridioides difficile infection Hx of thyroid nodule Back pain Arthritis Depression Anxiety Type 2 diabetes mellitus HLD (hyperlipidemia) GERD (gastroesophageal reflux disease) HTN (hypertension) Surgical History History of esophagogastroduodenoscopy (EGD) Hx of cosmetic surgery Hx of tonsillectomy Hx of section Hx of lithotripsy Hx of endoscopy Hx of colonoscopy (~11/2016) S/P anal fissurectomy H/O hemorrhoidectomy Hx laparoscopic cholecystectomy S/P left oophorectomy H/O partial thyroidectomy (~2016) History of removal of laparoscopic gastric banding device (~2015) History of abdominoplasty History of colonoscopy History of laparoscopic adjustable gastric banding (~2010) History of bilateral breast reduction surgery (~2008) History of hysterectomy Family History Father Diabetes Hypertension Depression Mother Lung cancer Diabetes Mental health disorder Brother HIV (human immunodeficiency virus infection) Depression Diabetes Sister Hypertension Diabetes Mental health disorder Daughter Mental health disorder Son Mental health disorder Social History Household Members: Children Housing: House Alcohol intake: current Alcohol intake frequency: holidays/special occasions only Patient Tobacco Use Status: Former Tobacco user Quit Date: 16 yrs ago e-Cigarette/Vaping Use: Never Used Second Hand Smoke Exposure: No service: No Current occupational status: disabled Cognitive needs: No Hearing needs: No Vision needs: Yes Questionnaire Thrive Questionnaire Date Thrive assessed: 11/01/22 AUDIT C Alcohol Use Questionnaire (AUDIT-C) 1. How often do you have a drink containing alcohol?: Monthly or less 2. How many drinks containing alcohol do you have on a typical day when you are drinking?: 1 or 2 3. How often do you have six or more drinks on one occasion?: Never Total Score: 1 Score Reviewed/Action Taken: No EMIL-7 AMB Questionnaire EMIL-7 Date EMIL - 7 assessed: 11/01/22 Source: Developed by Drs. Vazquez Holden, Jaye Ryan, Carl Gaona and colleagues, with an educational kalpana from [employer]. Review of Systems Const Denies body aches, Reports chills, Denies fever(s) and Denies headache(s) ENT Denies dizziness, Denies otalgia, Denies headache(s), Denies nasal discharge, Denies sinus pain and Denies sore throat Card Denies chest pain, Denies edema, Denies lightheadedness and Denies dyspnea Resp Denies cough, Denies dyspnea and Denies wheezing GI Denies abdominal pain, Denies constipation, Denies diarrhea, Denies nausea and Denies vomiting Reports as per HPI, Denies hematuria, Reports dysuria and Reports flank pain Musc Denies myalgias Skin/Breast Denies rash Neuro Denies dizziness and Denies headache(s) Aller/Immun Denies wheezing Physical exam (Primary Care) Vital Signs: Last Vital Signs Pulse 74 10/03/23 13:28 BP 114/68 10/03/23 13:28 Pulse Ox 96 10/03/23 13:28 Oxygen Delivery Method Room Air 10/03/23 13:28 BMI result Body Mass Index 32.0 Tobacco/Smoking Status: Tobacco use Status Tobacco use date assessed 10/03/23 10/03/23 13:29 Patient Tobacco Use Status Former Tobacco user 10/03/23 13:29 e-Cigarette/Vaping Use Never Used 10/03/23 13:29 Thrive Assessment: Date of Thrive Assessment Date Thrive assessed 11/01/22 10/03/23 13:29 Const General: cooperative and no acute distress Orientation/consciousness: patient oriented x3 HENOK Head: Yes normocephalic and Yes atraumatic Throat: Yes posterior oropharynx normal Eyes General: appearance normal, both eyes and all related structures Neck Neck: Yes normal visual inspection, Yes full ROM and Yes no lymphadenopathy Resp Effort & Inspection: normal respiratory effort and able to speak in complete sentences Auscultation: clear to auscultation bilaterally, no crackles, no rales, no rhonchi and no wheezes Cardio Rate: regular rate Rhythm: regular rhythm Heart sounds: S1 normal heart sound present and S2 normal heart sound present GI Palpation (GI): Soft to palpation, not firm, Tenderness to palpation present (GI) suprapubicly; with no rebound tenderness, no guarding, not rigid and no hepatosplenomegaly Auscultation: normal bowel sounds General: No CVA tenderness Back/Spine/Pelvis Back: No CVA tenderness Skin General skin exam: no rashes or lesions noted Neuro General: patient oriented x3 Gait exam (Neuro): Normal gait present Extrem General: Yes full ROM and No edema Results AMB Urinalysis, Automated UA Leukoctes 0 Lamonte/uL Last Edit by GUY Henry on 10/03/23 13:51 UA Nitrite Negative Last Edit by GUY Henry on 10/03/23 13:51 UA Urobilinogen 0.2 mg/dL Last Edit by GUY Henry on 10/03/23 13:51 UA Protein 0 mg/dL Last Edit by GUY Henry on 10/03/23 13:51 UA pH 6.0 Last Edit by GUY Henry on 10/03/23 13:51 UA Blood 0 Boogie/uL Last Edit by GUY Hnery on 10/03/23 13:51 UA Specific [place] 1.020 Last Edit by GUY Henry on 10/03/23 13:51 UA Ketone Negative Last Edit by GUY eHnry on 10/03/23 13:51 UA Bilirubin 0 mg/dL Last Edit by GUY Henry on 10/03/23 13:51 UA Glucose 0 mg/dL Last Edit by GUY Henry on 10/03/23 13:51 Results Reviewed Results Reviewed: Laboratory Last Values Urine pH (Auto) 6.0 10/03/23 11:52 Specific [place] (Auto) 1.020 10/03/23 11:52 Urine Protein (Auto) 0 mg/dL 10/03/23 11:52 Glucose (UA)(Auto) 0 mg/dL 10/03/23 11:52 Urine Ketones (Auto) Negative 10/03/23 11:52 Urine Blood (Auto) 0 Boogie/uL 10/03/23 11:52 Urine Nitrite (Auto) Negative 10/03/23 11:52 Urine Bilirubin (Auto) 0 mg/dL 10/03/23 11:52 Urine Urobilinogen (Auto) 0.2 mg/dL 10/03/23 11:52 Leukocyte Esterase (Auto) 0 Lamonte/uL 10/03/23 11:52 Assessment and Plan Assessment & Plan (1) Pelvic pain: Code(s): R10.2 - Pelvic and perineal pain Plan: Patient with urinary symptoms for the past 2 weeks - not improving. Will treat with Bactrim b.i.d. for 7 days. Will obtain KUB to rule out kidney stones. Will send urine for culture. Urinalysis with no acute findings. Signs and symptoms reviewed when to notify provider or go to the emergency department. Patient agreed with the plan. Blood work ordered, encouraged to drink more water. Orders: Orders XR KUB 10/03/23 R10.2 - Pelvic and perineal pain Basic Metabolic Panel 10/03/23 R10.2 - Pelvic and perineal pain Urine Culture 10/03/23 R10.2 - Pelvic and perineal pain AMB Urinalysis Automated 10/03/23 E11.9 - Type 2 diabetes mellitus without complications Complete Blood Count Auto Diff 10/03/23 R10.2 - Pelvic and perineal pain Medications: New sulfamethoxazole-trimethoprim 800-160 mg (Bactrim DS) 1 tab PO BID 14 tabs 0RF R10.2 - Pelvic and perineal pain Coding Level of Care Code Est Pt Level 3 (28332) Diagnoses Pelvic pain R10.2
== END 2023-10-03 14:17 | disposition home or self-care (01) ==
PROVIDERS: PCP Physician Assistant; Visit Provider Nurse Practitioner Family
DX: R10.2 Pelvic and perineal pain (principal)
CPT/HCPCS: 81003; 99213

== ENCOUNTER 2023-10-03 14:18 | Outpatient (REF) | payer OTHER, SELFPAY ==
[2023-10-04 03:41] LABS: Syphilis Screen Nonreactive (Nonreactive)
[2023-10-04 03:42] LABS: CT PCR NOT DETECTED (Not Detect.); NG PCR NOT DETECTED (Not Detect.)
[2023-10-04 03:51] LABS: HBS Num1 0.37 mIU/mL (0-7.99); HBc Num1 0.06 S/CO (0.00-0.79); HBsAGNum1 0.28 S/CO (0.00-0.99); Hepatitis B Core Antibody Nonreactive (Nonreactive); Hepatitis B Surface Antigen Negative (Negative); ~HepC Num1 0.06 S/CO (0.00-0.79); ~Hepatitis B Surface Antibody NONREACTIVE (Nonreactive); ~Hepatitis C Antibody Nonreactive (Nonreactive)
[2023-10-04 04:09] LABS: HIV AB/AG Nonreactive (Nonreactive); HIV Num 1 0.03 S/CO (0.00-0.99)
== END 2023-10-03 14:19 | disposition home or self-care (01) ==
LOC: HO.LAB 14:18
PROVIDERS: Physician Assistant; Visit Provider Nurse Practitioner Family
DX: R10.2 Pelvic and perineal pain (principal); E11.9 Type 2 diabetes mellitus without complications; Z20.2 Contact with and (suspected) exposure to infections with a predominantly sexual mode of transmission
CPT/HCPCS: 0353U; 86704; 86706; 86780; 86803; 87086; 87340; 87389

== ENCOUNTER 2023-10-03 14:24 | Outpatient (REF) | payer OTHER, SELFPAY ==
--- NOTE | ~2023-10-03 | XR_ITS ---
EXAMINATION: XR ABDOMEN KUB CLINICAL INDICATION: Abdominal and pelvic pain, kidney disease COMPARISON: Abdominal x-ray on 06/11/2022 TECHNIQUE: AP view of the abdomen. FINDINGS: AP supine x-rays of the abdomen show nonspecific bowel gas pattern. No abnormal bowel dilatation is seen. Surgical clips are seen in the medial right upper abdomen. Unchanged right lower pelvic phleboliths with radiolucent center is seen. No abnormal renal calcifications could be found. XR/XR KUB IMPRESSION: 1. Nonspecific bowel gas pattern. No acute findings. 2. Unchanged no evidence of renal calculi. 3. Unchanged status post cholecystectomy.
[2023-10-03 14:42] LABS: MANUAL DIFF FLAG NO
[2023-10-03 15:06] LABS: Basophils Percent Auto 0.6 % (0-2); Eosinophils Absolute Auto 0.1 X10*3/uL (0.0-0.4); Eosinophils Percent Auto 1.8 % (0-4); Hematocrit 42.1 % (37.0-47.0); Hemoglobin 14.5 g/dl (12.0-16.0); Imm Gran Abs Auto 0.02 X10*3/uL (0.00-0.03); Imm Gran Pct Auto 0.3 % (0.0-0.4); Lymphocytes Absolute Auto 1.9 X10*3/uL (1.2-4.9); Mean Corpuscular HGB Conc 34.4 g/dl (31.0-35.0); Mean Corpuscular Hemoglobin 29.1 pg (27.0-33.0); Mean Corpuscular Volume 84.5 fL (80.0-98.0); Monocytes Absolute Auto 0.4 X10*3/uL (0.1-1.2); Monocytes Percent Auto 7.1 % (2-11); Neutrophils Absolute Auto 3.7 x10*3/uL (2.0-8.3); Neutrophils Percent Auto 59.2 % (45-73); Platelet Count 256 X10*3/uL (160-400); Red Blood Count 4.98 X10*6/uL (4.20-5.50); Red Cell Distribution Width 12.2 % (11.0-16.0); White Blood Count 6.2 X10*3/uL (4.8-10.8)
[2023-10-03 15:33] LABS: Anion Gap 13 (12-20); Blood Urea Nitrogen 17 mg/dL (9-16); Carbon Dioxide 26 mmol/L (22-29); Chloride 103 mmol/L (96-108); Estimated Glomerular Filt Rate > 60; Glucose Random 121 mg/dL (60-115); Potassium 3.9 mmol/L (3.3-5.1); Sodium 138 mmol/L (135-145)
== END 2023-10-03 14:25 | disposition home or self-care (01) ==
LOC: HO.XRAY 14:24
PROVIDERS: PCP Physician Assistant; Visit Provider Nurse Practitioner Family
DX: R10.2 Pelvic and perineal pain (principal)
CPT/HCPCS: 36415; 74018; 80048; 85025; 87086

== ENCOUNTER 2023-11-05 09:47 | Outpatient (AMB) | payer OTHER, SELFPAY ==
[2023-11-05 09:48] VITALS: BP 126/86; PULSE 76; RESP 17; O2SAT 98; BMI 31.9
--- NOTE | 2023-11-05 09:48 | A.OFFPC_ITS ---
Vital Signs 11/05/23 09:48 Height 5 ft 6 in Weight 197 lb 8 oz BMI 31.9 BP 126/86 Blood Pressure Location Lt brachial Position Sitting Respiration 17 Pulse 76 Pulse Source Pulse Oximeter Pulse Oximetry (%) 98 Oxygen Delivery Method Room Air Intake Visit Reasons: Annual exam Intake Note: Patient is here today for a physical. Recruiting Assistant Required: No Accompanied by: Self / Same As Patient Allergies seafood Allergy (Unknown, Verified 11/05/23 09:59) Unknown lisinopril Adverse Reaction (Unknown, Verified 11/05/23 09:59) cough Medication List - Last Reconciled 11/05/23 by Silvino Andujar PA-C acetaminophen (Tylenol Extra Strength) 1,000 mg (2 x 500 mg) PO QID PRN albuterol sulfate 90 mcg/actuation 2 puffs inhalation QID 30 days albuterol sulfate 2.5 mg (3 mL) inhalation Q6H PRN 30 days atorvastatin 40 mg PO BEDTIME blood sugar diagnostic (FreeStyle Precision Steffen Strips) As directed once daily blood-glucose meter (FreeStyle Precision Steffen Meter) As directed cetirizine 10 mg PO DAILY PRN 90 days cholecalciferol (vitamin D3) 25 mcg PO DAILY 90 days citalopram 20 mg PO DAILY clonazepam 1 mg PO BID PRN dicyclomine 20 mg PO BID PRN 10 days dulaglutide (Trulicity) 0.75 mg (0.5 mL) subcut QWEEK 4 weeks famotidine (Pepcid) 40 mg PO BEDTIME 90 days fenofibrate nanocrystallized 48 mg PO DAILY fluticasone propionate 110 mcg/actuation (Flovent HFA) 1 puff inhalation BID 30 days gabapentin 400 mg PO BID 90 days ibuprofen 800 mg PO Q8H PRN 15 days metformin 1,000 mg PO BID 90 days omeprazole 40 mg PO DAILY oxybutynin chloride ER 5 mg PO DAILY polymyxin B sulf-trimethoprim 10,000 unit- 1 mg/mL 1 drp ophthalmic (eye) Q4H 7 days pyridoxine (vitamin B6) 100 mg (2 x 50 mg) PO DAILY 90 days telmisartan (Micardis) 20 mg PO DAILY tramadol 50 mg PO DAILY 10 days zolpidem 10 mg PO BEDTIME Tobacco use date assessed: 11/05/23 Dental Screening Dental Screen Date: 11/05/23 Did you have a dental visit in the last 12 months?: Yes Did you have a dental problem in the last 6 months where you did not have access to dental care?: No Was dental information given to patient?: Patient has dentist HPI Annual exam HPI Details Patient is a 58-year-old female here today for a routine annual physical.? Patient has a past medical history significant for type 2 diabetes, hypertension, obesity, recurrent C diff colitis, moderate persistent asthma, pulmonary nodule, major depressive disorder and generalized anxiety disorder. Concerns-->. She reports having epigastric discomfort which has medic chronic complaint of hers. She often reports a very awful taste in her mouth worse in the mornings. Has had endoscopies with balloon dilations in the past. Of note did have bariatric surgery in the past had been reversed. She continues with use of omeprazole and famotidine though finds that they are not effective. Also continues to have pain in her left plantar region , has been referred to Podiatry and has upcoming appointment .. Type 2 diabetes:? Diabetes under fair control. Has started Trulicity 0.75 mg Is interested in reducing and weaning off of metformin (now down to a 1000 mg daily)? She reports the metformin causes her some GI upset and increased diarrhea even in the setting of her C diff colitis.? . Asthma: Asthma as of lately has been fairly well controlled. Did have viral illness in August of 2023 that exacerbated her asthma requiring antibiotics and prednisone. ? . .. Major depressive disorder, generalized anxiety disorder:? Continues to follow a mental therapist and a psychiatrist whom manage her mental health medications.? She feels fairly stable at this time with her mental health medications. ? Vaccine: Up-to-date with COVID vaccine , tetanus and pneumonia vaccines, needs flu vaccine, Need Shingles vaccine .. Mammogram: Mammogram done in February of 2023 BI-RADS 1. 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 Has had a hysterectomy Colon cancer screening: Colonoscopy done in April of 2023, no tubular adenoma polyp, repeat 10 years Laboratory Tests 09/11/22 10/31/22 10/31/22 10:23 10:51 10:51 RBC 4.63 Hgb Creatinine POC Glucose Random Glucose Fasting Glucose Hgb A1c (Clinic) 6.4 H Cholesterol 208 LDL Cholesterol, C alc 94 SARS Antigen ([facility] ) 10/31/22 01/02/23 03/14/23 10:51 16:16 10:29 RBC Hgb Creatinine 0.84 POC Glucose Random Glucose Fasting Glucose 151 H Hgb A1c (Clinic) 6.3 H Cholesterol LDL Cholesterol, C alc SARS Antigen ([facility] ) 04/19/23 04/19/23 05/17/23 12:12 12:12 13:14 RBC 4.64 Hgb Creatinine POC Glucose 122 H Random Glucose Fasting Glucose Hgb A1c (Clinic) Cholesterol 177 LDL Cholesterol, C alc 88 SARS Antigen ([facility] ) 06/12/23 06/12/23 08/17/23 14:24 15:36 14:23 RBC 4.80 Hgb 13.6 Creatinine POC Glucose Random Glucose Fasting Glucose Hgb A1c (Clinic) 6.1 H Cholesterol LDL Cholesterol, C alc SARS Antigen ([facility] ) Negative 09/18/23 10/03/23 09:51 14:41 RBC 4.98 Hgb Creatinine 0.73 POC Glucose Random Glucose 121 H Fasting Glucose Hgb A1c (Clinic) 7.0 H Cholesterol LDL Cholesterol, C Galc SARS Antigen ([facility] ) [facility] Medical History History of panic attacks Asthma Anal fissure Anal pain Pulmonary nodules Hx of renal calculi Flu-like symptoms Spondylosis of lumbar spine Fibromyalgia Dyslipidemia Obesity, Class I, BMI 30-34.9 Nephrolithiasis Recurrent Clostridioides difficile infection Hx of thyroid nodule Back pain Arthritis Depression Anxiety Type 2 diabetes mellitus HLD (hyperlipidemia) GERD (gastroesophageal reflux disease) HTN (hypertension) Surgical History History of esophagogastroduodenoscopy (EGD) Hx of cosmetic surgery Hx of tonsillectomy Hx of section Hx of lithotripsy Hx of endoscopy Hx of colonoscopy (~11/2016) S/P anal fissurectomy H/O hemorrhoidectomy Hx laparoscopic cholecystectomy S/P left oophorectomy H/O partial thyroidectomy (~2016) History of removal of laparoscopic gastric banding device (~2015) History of abdominoplasty History of colonoscopy History of laparoscopic adjustable gastric banding (~2010) History of bilateral breast reduction surgery (~2008) History of hysterectomy Family History Father Diabetes Hypertension Depression Mother Lung cancer Diabetes Mental health disorder Brother HIV (human immunodeficiency virus infection) Depression Diabetes Sister Hypertension Diabetes Mental health disorder Daughter Mental health disorder Son Mental health disorder Social History (Updated 11/05/23 @ 10:04 by Silvino Andujar PA-C) Household Members: Children Housing: House Alcohol intake: current Alcohol intake frequency: holidays/special occasions only Patient Tobacco Use Status: Former Tobacco user Quit Date: 16 yrs ago e-Cigarette/Vaping Use: Never Used Second Hand Smoke Exposure: No service: No Current occupational status: disabled Cognitive needs: No Hearing needs: No Vision needs: Yes Questionnaire PHQ-9 Over the last 2 weeks, how often have you been bothered by any of the following problems? 1. Little interest or pleasure in doing things: several days 2. Feeling down, depressed, or hopeless: several days 3. Trouble falling or staying asleep, or sleeping too much: nearly every day 4. Feeling tired or having little energy: nearly every day 5. Poor appetite or overeating: nearly every day 6. Feeling bad about yourself - or that you are a failure or have let yourself or your family down: not at all 7. Trouble concentrating on things, such as reading the newspaper or watching television: nearly every day 8. Moving or speaking so slowly that other people could have noticed. Or the opposite - being so fidgety or restless that you have been moving around a lot more than usual: several days 9. Thoughts that you would be better off or of hurting yourself in some way: not at all Total score: 15 76353 - PHQ-9 Billing: Yes Source: Developed by Drs. Vazquez Holden, Jaye Ryan, Carl Gaona and colleagues, with an educational kalpana from [employer]. Thrive Questionnaire Date Thrive assessed: 11/05/23 I am a: Patient What is your living situation today?: I have a steady place to live Within the past 12 months, did the food you bought not last and you didn't have the money to get more?: Never true Within the past 12 months, did you worry whether your food would run out before you got money to buy more?: Never true Do you have trouble paying for medicines?: No Do you have trouble getting transportation to medical appointments?: No Do you have trouble paying your heating and electricity bill?: No Do you have trouble taking care of your child, family member or friend?: No Do you have trouble with day-to-day activities such as bathing, preparing meals, shopping, managing finances, etc.?: No Are you currently unemployed and looking for a job?: No Are you interested in more education?: No Please select the resources that you would like help with: None Currently or been in a relationship where the following occur: no concerns reported AUDIT C Alcohol Use Questionnaire (AUDIT-C) 1. How often do you have a drink containing alcohol?: Monthly or less 2. How many drinks containing alcohol do you have on a typical day when you are drinking?: 1 or 2 3. How often do you have six or more drinks on one occasion?: Never Total Score: 1 Score Reviewed/Action Taken: No EMIL-7 AMB Questionnaire EMIL-7 Date EMIL - 7 assessed: 11/05/23 Feeling nervous, anxious, or on edge: 3 = Nearly every day Not being able to stop or control worryin = Nearly every day Worrying too much about different things: 3 = Nearly every day Trouble relaxin = More than half the days Being so restless that it is hard to sit still: 2 = More than half the days Becoming easily annoyed or irritable: 1 = Several days Feeling afraid as if something awful might happen: 3 = Nearly every day Total EMIL-7 score (0-4 normal; 5-9 mild; 10-14 moderate; 15-21 severe): 17 Source: Developed by Drs. Vazquez Holden, Jaye Ryan, Carl Gaona and colleagues, with an educational kalpana from [employer]. EMIL-7 Assessment Billing EMIL-7 Assessment Tool: EMIL-7 Assessment 57275 Review of Systems Const Denies body aches, Denies chills, Denies excessive sweating, Denies fatigue, Denies fever(s) and Denies headache(s) Eyes Denies blurry vision ENT Denies dysphagia, Denies vertigo, Denies dizziness, Denies headache(s), Denies hearing loss and Denies tinnitus Card Denies chest pain, Denies chest pain with activity, Denies syncope, Denies irregular heart rhythm and Denies dyspnea Resp Denies chest congestion, Denies cough, Denies hemoptysis, Denies dyspnea and Denies wheezing GI Denies abdominal pain, Denies melena, Denies hematochezia, Denies coffee ground emesis, Denies dysphagia, Denies diarrhea, Denies nausea and Denies vomiting Denies urinary frequency, Denies dysuria, Denies urinary hesitancy and Denies urinary urgency Musc Denies arthralgias, Denies limited range of motion, Denies muscle cramps and Denies muscle weakness Skin/Breast Denies rash and Denies skin ulcer Neuro Denies Abnormal speech present, Denies confusion, Denies vertigo, Denies dizziness, Denies syncope, Denies headache(s), Denies memory loss and Denies seizure-like activity Psych Denies anxiety, Denies confusion, Denies depression, Denies memory loss, Denies panic attacks and Denies paranoia Endo Denies excessive sweating, Denies fatigue, Denies flushing, Denies polydipsia and Denies polyuria Aller/Immun Denies wheezing Physical exam (Primary Care) Vital Signs: Oxygen Delivery Method Room Air 11/05/23 09:48 BMI result Body Mass Index 31.9 BMI Assessment/Plan discussion: High Tobacco/Smoking Status: Tobacco use Status Tobacco use date assessed 11/05/23 11/05/23 09:51 Patient Tobacco Use Status Former Tobacco user 11/05/23 09:51 e-Cigarette/Vaping Use Never Used 11/05/23 09:51 Thrive Assessment: Date of Thrive Assessment Date Thrive assessed 11/05/23 11/05/23 09:51 Currently or been in a relationship where the following occur: no concerns reported Const Other: Obese General: cooperative, comfortable, no acute distress, alert and awake; No confusion Orientation/consciousness: oriented to person, oriented to place, patient oriented x3 and No confusion HENMT Head: Yes normocephalic Ears: external ears normal and TM's normal bilaterally Face and sinus: No sinus tenderness Mouth: Normal oral and palatal mucosa present and tongue normal Teeth and gingiva: dentition normal and gingiva normal Throat: Yes posterior oropharynx normal, Yes tonsils normal and Yes uvula midline Eyes Conjunctivae: conjunctivae normal Sclerae: sclerae normal Pupils: Equal, round and reactive pupils present EOM: EOMs intact bilaterally Direct Ophthalmoscopy: No no photophobia Neck Neck: Yes no lymphadenopathy, No tender and Yes no JVD Thyroid: Thyroid normal Carotids: no bruits Chest Chest palpation & inspection: no tenderness Resp Effort & Inspection: normal respiratory effort, no audible wheezes, not labored and no stridor Auscultation: no crackles, no rales, no rhonchi and no wheezes Cardio Jugular venous distension: no JVD Rate: regular rate, not bradycardic and not tachycardic Rhythm: regular rhythm Bruits: no carotid bruits Peripheral pulses: Peripheral pulses 2+ throughout GI Inspection: Yes normal to inspection, No abdominal wall ecchymosis and No visible herniation Palpation (GI): Soft to palpation, nontender, no guarding, not rigid and No hepatosplenomegaly present Auscultation: normoactive bowel sounds General: Yes no CVA tenderness Back/Spine/Pelvis Back: no CVA tenderness and No back tenderness Cervical Spine: cervical ROM normal Thoracic/Lumbar Spine: thoracic and lumbar spine normal to inspection, straight leg raise negative bilaterally, No thoraco-lumbar ROM limited and No lumbar spinal tenderness Skin Lesions: no lesions Rashes: no rashes Wounds: no wounds Neuro General: oriented to person, oriented to place, patient oriented x3, CN's II-XI intact bilaterally and No confusion Cranial nerves: Yes Equal, round and reactive pupils present and Yes Normal accommodation reflex present Cognition (Neuro): normal cognition Speech: No Abnormal speech present Gait exam (Neuro): Normal gait present Motor exam (neuro): 5/5 motor strength present throughout Extrem Right upper extremity: full ROM; no cyanosis Left upper extremity: full ROM; no cyanosis Right lower extremity: no edema Left lower extremity: no edema Psych Appearance: grossly normal Mental Status: mental status grossly normal Affect: normal affect Attitude: cooperative Thought process: Normal thought process present Assessment and Plan Assessment & Plan (1) Annual physical exam: Code(s): Z00.00 - Encounter for general adult medical examination without abnormal findings (2) HTN (hypertension): Code(s): I10 - Essential (primary) hypertension Qualifiers: Hypertension type: essential hypertension Qualified Code(s): I10 - Essential (primary) hypertension Plan: Patient's blood pressure acceptable today in office. 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 Will increase her dose of Trulicity for added benefit of weight loss. Goal A1c is to be below 7 (4) Obese: Code(s): E66.9 - Obesity, unspecified Qualifiers: Body mass index: BMI 31.0-31.9 Obesity classification: adult class 1 (BMI 30 - 34.9) Obesity type: due to excess calories Serious obesity comorbidity presence: with serious comorbidity Qualified Code(s): E66.09 - Other obesity due to excess calories; Z68.31 - Body mass index [BMI] 31.0-31.9, adult Plan: Patient does understand her BMI is over 30 will continue working on following better eating habits to reduce her weight. Will increase her dose of Trulicity for added benefit to more weight loss. (5) Plantar fasciitis of left foot: Code(s): M72.2 - Plantar fascial fibromatosis Plan: Has had a 6 month history of left foot pain, have seen at ER and October of 2022. Advised on conservative management with cool compress, plantar stretches. Will refer to Podiatry for possible cortisone injection in the plantar region. (6) Asthma: Code(s): J45.909 - Unspecified asthma, uncomplicated Qualifiers: Asthma complication type: uncomplicated Asthma persistence: intermittent Asthma severity: mild Qualified Code(s): J45.20 - Mild intermittent asthma, uncomplicated Plan: Patient asthma has been suboptimally controlled as of late due to upper respiratory illnesses. She continues with p.r.n. use of her albuterol i and as needed use of her nebulizers. rosarior (7) MDD (major depressive disorder), recurrent episode, moderate: Code(s): F33.1 - Major depressive disorder, recurrent, moderate Plan: She continues to suffer with depression. She does see a mental health therapist and a psychiatrist who manages her mental health medications. (8) GERD (gastroesophageal reflux disease): Code(s): K21.9 - Gastro-esophageal reflux disease without esophagitis Qualifiers: Esophagitis presence: with esophagitis Esophagitis bleeding: without hemorrhage Qualified Code(s): K21.00 - Gastro-esophageal reflux disease with esophagitis, without bleeding Plan: Patient's signs and symptoms are concerning for uncontrolled GERD verses esophageal stricture. She will reach out to her artificial breeding technician about another endoscopy. Will try Carafate liquid Orders: Orders Comprehensive Jet. 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 sucralfate (Carafate) 10 mL PO BID 30 days 600 mL 0RF K21.00 - Gastro- esophageal reflux disease with esophagitis, without bleeding Changed From metformin 1,000 mg PO BID 90 days 180 tabs 2RF E11.9 - Type 2 diabetes mellitus without complications To metformin 1,000 mg PO DAILY 90 days 90 tabs 2RF E11.9 - Type 2 diabetes mellitus without complications Refilled albuterol sulfate 90 mcg/actuation 2 puffs inhalation QID 30 days 8.5 grams 3RF J45.20 - Mild intermittent asthma, uncomplicated cholecalciferol (vitamin D3) 25 mcg PO DAILY 90 days 90 tabs 1RF famotidine (Pepcid) 40 mg PO BEDTIME 90 days 90 tabs 2RF K21.9 - Gastro- esophageal reflux disease without esophagitis fluticasone propionate 110 mcg/actuation (Flovent HFA) 1 puff inhalation BID 30 days 12 grams 3RF J45.909 - Unspecified asthma, uncomplicated ibuprofen 800 mg PO Q8H 15 days PRN 45 tabs 2RF pain K62.89 - Other specified diseases of anus and rectum omeprazole 40 mg PO DAILY 90 caps 1RF K21.00 - Gastro-esophageal reflux disease with esophagitis, without bleeding pyridoxine (vitamin B6) 100 mg (2 x 50 mg) PO DAILY 90 days 180 tabs 2RF N20.0 - Calculus of kidney tramadol 50 mg PO DAILY 10 days 10 tabs 0RF M54.16 - Radiculopathy, lumbar region acetaminophen (Tylenol Extra Strength) 1,000 mg (2 x 500 mg) PO QID PRN 14 tabs 0RF fever or pain U07.1 - COVID-19 albuterol sulfate 2.5 mg (3 mL) inhalation Q6H 30 days PRN 180 mL 2RF shortness of breath or wheezing J45.20 - Mild intermittent asthma, uncomplicated dicyclomine 20 mg PO BID 10 days PRN 20 tabs 0RF abdominal pain K22.4 - Dyskinesia of esophagus fenofibrate nanocrystallized 48 mg PO DAILY 90 tabs 2RF E78.5 - Hyperlipidemia, unspecified telmisartan (Micardis) 20 mg PO DAILY 90 tabs 2RF Discontinued oxybutynin chloride ER Discontinued Reason: Doctor's Order 5 mg PO DAILY 30 tabs 3RF N39.3 - Stress incontinence (female) (male) dulaglutide (Trulicity) Discontinued Reason: Doctor's Order 0.75 mg (0.5 mL) subcut QWEEK 4 weeks 2 mL 1RF E11.9 - Type 2 diabetes mellitus without complications, 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 Coding Level of Care Code Est Pt Prev Care 40-64y(32741) Diagnoses Annual physical exam Z00.00 Essential hypertension I10 Hypertension type: essential hypertension Type 2 diabetes mellitus without complication, with long-term current use of insulin E11.9; Z79.4 Diabetes mellitus complication status: without complication Diabetes mellitus technician terminal and repeater insulin use: with alf use Class 1 obesity due to excess calories with serious comorbidity and body mass index (BMI) of 31.0 to 31.9 in adult E66.09; Z68.31 Body mass index: BMI 31.0-31.9 Obesity classification: adult class 1 (BMI 30 - 34.9) Obesity type: due to excess calories Serious obesity comorbidity presence: with serious comorbidity Plantar fasciitis of left foot M72.2 Mild intermittent asthma without complication J45.20 Asthma complication type: uncomplicated Asthma persistence: intermittent Asthma severity: mild MDD (major depressive disorder), recurrent episode, moderate F33.1 Gastroesophageal reflux disease with esophagitis without hemorrhage K21.00 Esophagitis presence: with esophagitis Esophagitis bleeding: without hemorrhage Additional Codes EMIL-7 Assessment Billing - EMIL-7 Assessment Tool: EMIL-7 Assessment 68322 ([id number])
== END 2023-11-05 10:37 | disposition home or self-care (01) ==
PROVIDERS: Visit Provider Physician Assistant
DX: Z00.00 Encounter for general adult medical examination without abnormal findings (principal); E11.9 Type 2 diabetes mellitus without complications; Z79.4 Long term (current) use of insulin; F33.1 Major depressive disorder, recurrent, moderate; I10 Essential (primary) hypertension; E66.09 Other obesity due to excess calories; Z68.31 Body mass index [BMI] 31.0-31.9, adult; M72.2 Plantar fascial fibromatosis; J45.20 Mild intermittent asthma, uncomplicated; K21.00 Gastro-esophageal reflux disease with esophagitis, without bleeding
CPT/HCPCS: 99396

== ENCOUNTER 2023-11-15 12:03 | Outpatient (REF) | payer OTHER, SELFPAY ==
[2023-11-15 13:05] LABS: CDiff Gene PCR NEGATIVE (Negative)
== END 2023-11-15 12:04 | disposition home or self-care (01) ==
LOC: HO.LNP 12:03
PROVIDERS: Visit Provider Physician Assistant
DX: A04.72 Enterocolitis due to Clostridium difficile, not specified as recurrent (principal); R19.7 Diarrhea, unspecified
CPT/HCPCS: 87493

== ENCOUNTER → 2023-12-26 10:40 | Outpatient (BNVA) | payer OTHER, SELFPAY | PROVIDERS: PCP Physician Assistant; Visit Provider Internal Medicine Gastroenterology ==

== ENCOUNTER 2024-01-02 13:01 | Outpatient (AMB) | payer OTHER, SELFPAY ==
--- NOTE | 2024-01-02 13:02 | A.OFFVIS_ITS ---
Intake Intake Visit Reasons: Abdominal bloating Intake Note: Patient follow up for abdominal bloating. Patient continue with abdominal bloating, acid reflex with esophagus irritation, and between diarrhea and constipation. Punch Box Tender Required: No Allergies seafood Allergy (Unknown, Verified 01/02/24 13:02) Unknown lisinopril Adverse Reaction (Unknown, Verified 01/02/24 13:02) cough Medication List - Last Reconciled 01/02/24 by Shabnam Hitchcock MD acetaminophen (Tylenol Extra Strength) 1,000 mg (2 x 500 mg) PO QID PRN albuterol sulfate 90 mcg/actuation 2 puffs inhalation QID 30 days albuterol sulfate 2.5 mg (3 mL) inhalation Q6H PRN 30 days atorvastatin 40 mg PO BEDTIME blood sugar diagnostic (FreeStyle Precision Steffen Strips) As directed once daily blood-glucose meter (FreeStyle Precision Steffen Meter) As directed cetirizine 10 mg PO DAILY PRN 90 days cholecalciferol (vitamin D3) 25 mcg PO DAILY 90 days citalopram 20 mg PO DAILY clonazepam 1 mg PO BID PRN dicyclomine 20 mg PO BID PRN 10 days dulaglutide (Trulicity) 1.5 mg (0.5 mL) subcut QWEEK 4 weeks famotidine (Pepcid) 40 mg PO BEDTIME 90 days fenofibrate nanocrystallized 48 mg PO DAILY fluticasone propionate 110 mcg/actuation (Flovent HFA) 1 puff inhalation BID 30 days gabapentin 400 mg PO BID 90 days ibuprofen 800 mg PO Q8H PRN 15 days metformin 1,000 mg PO DAILY 90 days omeprazole 40 mg PO DAILY polymyxin B sulf-trimethoprim 10,000 unit- 1 mg/mL 1 drp ophthalmic (eye) Q4H 7 days pyridoxine (vitamin B6) 100 mg (2 x 50 mg) PO DAILY 90 days sucralfate (Carafate) 10 mL PO BID 30 days telmisartan (Micardis) 20 mg PO DAILY tramadol 50 mg PO DAILY 10 days zolpidem 10 mg PO BEDTIME HPI Abdominal bloating HPI Details TELEMEDICINE VISIT FOR THIS 58-YEAR-OLD FEMALE FOR RECTAL PAIN. PT IS FOLLOWED IN GI FOR DYSPHAGIA AND EPIGASTRIC PAIN. PATIENT IS STATUS POST LAP BAND SURGERY IN 2010 AND LAP BAND WAS REMOVED IN 2015. Pt was seen by Dr Parry for anal pain and treated with topical NTG followed by Nifedipine Pelvic CT scan was negative for perianal abscess. ?CHRONIC ILLNESSES:?hypercholesterolemia, depression, anxiety, asthma, hemorrhoids, hypertention diabetes type II, nephrolithiasis ? LABS IN [facility]:?05/16 Reviewed. ? Stool antigen for C Diff was positive ON AND February and negative on 10/08/19 ?IMAGING STUDIES: 07/2021 GASTRIC EMPTYING STUDY SHOWED: No abnormal retention of solid food is noted. Gastric emptying is more rapid than normal, a finding of uncertain clinical significance. ?09/13/[address] SCAN SHOWED: ? Mild right hydroureteronephrosis. 0.5 cm calculus at the right ureterovesicular junction. ? Hepatomegaly with hepatic steatosis. 07/15 Barium swallow showed:? Delay in passage of a 13 mm barium tablet across the gastroesophageal junction, raising the possibility of underlying stricturing. ? No delay in liquid barium passage across the gastroesophageal junction. ENDOSCOPIC STUDIES: ? 04/2023 EGD AND COLONOSCOPY SHOWED: ESOPHAGUS: Tortuous esophagus with increased tertiary contractions without st ricture or ring - biopsies obtained during past EGD were negative for EOE.??GE junction at 36 cms.? Minimal focal esophagitis at GE junction and no Garcia's. Empiric balloon dilation was performed with a 20 mm (60 F) CRE balloon x 60 sec STOMACH: Mild gastritis DUODENUM: A small benign appearing polyp was biopsied in the duodenal bulb. Biopsied obtained from 3rd part of the duodenum to check for celiac sprue Colonoscopy Findings: One polyp was biopsied - biopsies showed lymphoid aggregates. Random biopsies obtained from the right and left colon to check for microscopic colitis Moderate diverticulosis seen in the sigmoid colon Small hemorrhoids on retroflexed exam. Colon aspirate was sent for C Diff toxin Plan: Repeat Colonoscopy interval based on path results - in 3-5 years if polyps are adenomatous and 10 years if polyps are hyperplastic. 12/16/20 EGD SHOWED:ESOPHAGUS: Tortuous e sophagus with increased tertiary contractions without stricture or ring - biopsies were obtained from proximal esophagus to check for EOE. GE junction at 36 cms.? Prominent folds at GE junction - biopsied.? No esophagitis or Garcia Balloon dilation was performed with 19 and 20mm CRE balloon x 60 seconds at each level STOMACH: Gastritis with a few superficial antral erosions likely due to NSAIDS DUODENUM: Normal - biopsied to check for celiac sprue. Plan:? Patient has an appointment on 01/19/21 in the GI Clinic with Shabnam Hitchcock M.D. If symptoms persist, further evaluation with a chest CT scan will be scheduled Above findings were reviewed with the patient and Gastritis handout was given in the discharge area BIOPSIES SHOW: A.? Small bowel, biopsy:? Small bowel mucosa within normal limits; preserved villous architecture and no increased intraepithelial lymphocytes. B. Stomach, antrum, biopsy:? Gastric antral mucosa with mild chronic inactive gastritis; negative for Helicobacter pylori, intestinal metaplasia and dysplasia. C. Esophagus, proximal, biopsy:? Squamous mucosa within normal limits; negative for inflammation (including eosinophils), fungal organisms, intestinal metaplasia and dysplasia. D. Gastroesophageal junction, biopsy:? Gastric cardia-type mucosa with mild chronic inactive inflammation; no squamous mucosa seen; negative for intestinal metaplasia or dysplasia. 07/2018 EGD WITH ESOPHAGEAL BALLOON DILA TION WAS PERFORMED BY DR. JENKINS:? 1. Distal esophageal ring (question of muscular). ? 2. Superficial gastritis. BIOPSIES SHOWED: Fragments of unremarkable fundic-type gastric mucosa. The Helicobacter pylori immunohistochemical stain is negative. ?? ? IMPEDENCE TESTIN HR AMBULATORY pH-IMPEDENCE TESTING WITH HIGH RESOLUTION ESOPHAGEAL MANOMETRY: ? Normal UES function, Normal LES length ? Normal LES/EGJ resting pressure, Normal LES relaxation ? No hiatal hernia was detected manometrically ? Melrose Classification 3.0: Normal Esophageal contractility. ?TODAY'S VISIT Patient continue with abdominal bloating, acid reflex with esophagus irritation, and between diarrhea and constipation. Complains of bloating and esophageal discomfort. Intermittent dysphagia associated with intake of rice and meats Patient denies significant improvement in dysphagia after past EGD and dilation. She complains of diarrhea alternating with constipation - recent C diff toxin was negative. Takes tramadol and ibuprofen infrequently for severe pain. PAST VISITS: EGD and colon results reviewed with the patient. Notes upper abdominal discomfort. Feels food is moving slowly in the lower esophagus. Had choking with a piece of meat Gives a hx of colon polyps in the past Diarrhea is better - taking probiotics Niece has stage 4 lung cancer and rapidly declining and on being placed under hospice care. Patient cc: Nauseas, abdominal pain/bloating, and diarrhea on and off, also she is been having some swallowing problems. Diarrhea comes and goes. Notes post prandial nausea and sometimes diarrhea. Stool is frothy and floats on the toilet water. She also complains of bad breath - which is new (states dental check up was normal) Notes diarrhea with everything she eats. Intermittent abdominal bloating When she eats she feels she has eaten a ton of food. Has symptoms with solid food and not with soups. Denies nausea or vomiting. SANDOVAL x 4 days - COVID test was negative. Notes cramps in the abdominal wall when she moves from side to side - likely musculoskeletal. Bad breath has improved with medications. Has 2 BMs a day - depending on her diet. Last episode of diarrhea started after she had antibiotics for sinus infection Recurrent diarrhea with abd pain x 2 weeks Notes bad breath Notes sharp and throbbing pain in the rectum after having multiple episodes of diarrhea Chills at night which she attributes to menopause. Has been eating small portions due to decreased appetite Wt loss to 200 lbs (208 lbs in 11/2020) [facility] Medical History History of panic attacks Asthma Anal fissure Anal pain Pulmonary nodules Hx of renal calculi Flu-like symptoms Spondylosis of lumbar spine Fibromyalgia Dyslipidemia Obesity, Class I, BMI 30-34.9 Nephrolithiasis Recurrent Clostridioides difficile infection Hx of thyroid nodule Back pain Arthritis Depression Anxiety Type 2 diabetes mellitus HLD (hyperlipidemia) GERD (gastroesophageal reflux disease) HTN (hypertension) Surgical History History of esophagogastroduodenoscopy (EGD) Hx of cosmetic surgery Hx of tonsillectomy Hx of section Hx of lithotripsy Hx of endoscopy Hx of colonoscopy (~11/2016) S/P anal fissurectomy H/O hemorrhoidectomy Hx laparoscopic cholecystectomy S/P left oophorectomy H/O partial thyroidectomy (~2016) History of removal of laparoscopic gastric banding device (~2015) History of abdominoplasty History of colonoscopy History of laparoscopic adjustable gastric banding (~2010) History of bilateral breast reduction surgery (~2008) History of hysterectomy Family History Father Diabetes Hypertension Depression Mother Lung cancer Diabetes Mental health disorder Brother HIV (human immunodeficiency virus infection) Depression Diabetes Sister Hypertension Diabetes Mental health disorder Daughter Mental health disorder Son Mental health disorder Social History Household Members: Children Housing: House Alcohol intake: current Alcohol intake frequency: holidays/special occasions only Patient Tobacco Use Status: Former Tobacco user Quit Date: 16 yrs ago e-Cigarette/Vaping Use: Never Used Second Hand Smoke Exposure: No service: No Current occupational status: disabled Cognitive needs: No Hearing needs: No Vision needs: Yes Review of Systems Const All systems reviewed & are unremarkable except as noted in HPI and below Assessment & Plan Assessment & Plan (1) Esophageal spasm: Code(s): K22.4 - Dyskinesia of esophagus (2) Epigastric pain: Code(s): R10.13 - Epigastric pain (3) Schatzki's ring: Code(s): K22.2 - Esophageal obstruction (4) Colon cancer screening: Comment: 11/2016 a diminutive polyp was removed during colonoscopy by Dr. Jenkins. Repeat colonoscopy was advised in 10 years. Code(s): Z12.11 - Encounter for screening for malignant neoplasm of colon (5) Dysphagia, pharyngoesophageal phase: Code(s): R13.14 - Dysphagia, pharyngoesophageal phase (6) Abdominal bloating: Code(s): R14.0 - Abdominal distension (gaseous) (7) Bad breath: Code(s): R19.6 - Halitosis (8) Clostridioides difficile infection: Code(s): A49.8 - Other bacterial infections of unspecified site Plan 58 YF with hypercholesterolemia, depression, anxiety, asthma, hemorrhoids, hypertension diabetes type II, migraine headache thyroid disease (S/p surgery with removal of 1/2 of the gland), nephrolithiasis followed in GI for dysphagia, known hx of Schatzki's ring, epigastric pain, diarrhea and constipation. Patient is status post cholecystectomy for gallstones. Pt has a hx of recurrent C Diff infection. Patient is status post lap band surgery in 2010 and lap band was removed in 2015. Patient states that she's had pain at her upper stomach ever since she had the band place and even after removal the pain still remains. Manometry study at [facility] was normal - no motility disorder was identified Patient has been referred to Dr Larsen for a 2nd opinion and appt was postponed due to COVID-19 pandemic and pt was not seen. 12/16/20 upper endoscopy with esophageal balloon dilation to 20mm (60 F) was performed without significant change in her symptoms. Pt has had recurrent C Diff since 2018 usually precipitated by antibiotic therapy. Last episode was in 03/2021 and treated with Vancomycin 125 mg four times daily x 10 days Patient was advised to continue HC cream/preparation H for hemorrhoids and referred to surgery. Pt advised to have a stool test checked for C Diff if she has recurrent diarrhea. 04/2023 EGD (FU of dysphagia) and colonoscopy were performed and results as noted above Patient advised repeat colonoscopy in 10 years. Stool studies showed C Diff colonization without infection Patient advised to continue with probiotics. 01/02/24 Patient continue with abdominal bloating, acid reflex with esophagus irritation, and between diarrhea and constipation. Complains of bloating and esophageal discomfort. Intermittent dysphagia associated with intake of rice and meats Patient denies significant improvement in dysphagia after past EGD and dilation. She complains of diarrhea alternating with constipation - recent C diff toxin was negative. Takes tramadol and ibuprofen infrequently for severe pain. Pt advised a trail of FODMAP diet for 6 weeks Follow-up in 6 month Medications: Refilled sucralfate (Carafate) 10 mL PO BID 600 mL 1RF 30 days K21.00 - Gastro-esophageal reflux disease with esophagitis, without bleeding Telehealth Telehealth Location of provider rendering services: practice address Location of patient: address on file Patient Identification confirmed using: Name, : Yes Telehealth method: voice only Patient verbally consented to treatment: Yes Patient verbally consented to billing insurance company: Yes Patient informed of any privacy concerns related to visit: Yes Minutes spent on Phone/Video with Pt.: 15 Coding Level of Care Code Tele Est Pt Level 3 (52668) Diagnoses Esophageal spasm K22.4 Epigastric pain R10.13 Schatzki's ring K22.2 Colon cancer screening Z12.11 Dysphagia, pharyngoesophageal phase R13.14 Abdominal bloating R14.0 Bad breath R19.6 Clostridioides difficile infection A49.8 Time Spent (min) 15
== END 2024-01-02 14:47 | disposition home or self-care (01) ==
LOC: HO.HGI 13:01
PROVIDERS: PCP Physician Assistant; Visit Provider Internal Medicine Gastroenterology
DX: K22.4 Dyskinesia of esophagus (principal); R10.13 Epigastric pain; K22.2 Esophageal obstruction; R14.0 Abdominal distension (gaseous); R19.6 Halitosis; A49.8 Other bacterial infections of unspecified site
CPT/HCPCS: 99442

== ENCOUNTER → 2024-01-02 13:01 | Outpatient (BNVA) | payer OTHER, SELFPAY | PROVIDERS: PCP Physician Assistant; Visit Provider Internal Medicine Gastroenterology ==

== ENCOUNTER 2024-01-30 08:49 | Outpatient (AMB) | payer OTHER, SELFPAY ==
[2024-01-30 08:51] VITALS: BP 124/84; PULSE 102; TEMP 36.4; O2SAT 96; BMI 32.8
--- NOTE | 2024-01-30 08:51 | AM.OFFWIN_ITS ---
Intake Vital Signs 01/30/24 08:51 Height 5 ft 6 in Weight 203 lb BMI 32.8 BP 124/84 Blood Pressure Location Lt brachial Position Sitting Pulse 102 H Pulse Source Pulse Oximeter Temp 97.5 F Temp Source Temporal Artery Scan Pulse Oximetry (%) 96 Oxygen Delivery Method Room Air Intake Visit Reasons: EP stomach pain headache nausea (lobby) Intake Note: pt is here today for stomach pain headache nausea started 5 days ago Patient Tobacco Use Status: Former Tobacco user Quit Date: 16 yrs ago Allergies seafood Allergy (Unknown, Verified 01/30/24 08:54) Unknown lisinopril Adverse Reaction (Unknown, Verified 01/30/24 08:54) cough Do you need a note to return to daycare/school/sports/work: No HPI EP stomach pain headache nausea (lobby) HPI Details This is a 58 year old female patient who presents today with a 5 day history of headache, nausea, fatigue, stomach cramps, and diarrhea. Denies fever but reports having the chills. Denies known exposure to sick contacts. Reports headache is associated with photophobia and is crushing/pulsating. She has had migraines in the past similar to this. Denies any respiratory symptoms or upper respiratory congestion. [facility] Medical History History of panic attacks Asthma Anal fissure Anal pain Pulmonary nodules Hx of renal calculi Flu-like symptoms Spondylosis of lumbar spine Fibromyalgia Dyslipidemia Obesity, Class I, BMI 30-34.9 Nephrolithiasis Recurrent Clostridioides difficile infection Hx of thyroid nodule Back pain Arthritis Depression Anxiety Type 2 diabetes mellitus HLD (hyperlipidemia) GERD (gastroesophageal reflux disease) HTN (hypertension) Surgical History History of esophagogastroduodenoscopy (EGD) Hx of cosmetic surgery Hx of tonsillectomy Hx of section Hx of lithotripsy Hx of endoscopy Hx of colonoscopy (~11/2016) S/P anal fissurectomy H/O hemorrhoidectomy Hx laparoscopic cholecystectomy S/P left oophorectomy H/O partial thyroidectomy (~2016) History of removal of laparoscopic gastric banding device (~2015) History of abdominoplasty History of colonoscopy History of laparoscopic adjustable gastric banding (~2010) History of bilateral breast reduction surgery (~2008) History of hysterectomy Family History Father Diabetes Hypertension Depression Mother Lung cancer Diabetes Mental health disorder Brother HIV (human immunodeficiency virus infection) Depression Diabetes Sister Hypertension Diabetes Mental health disorder Daughter Mental health disorder Son Mental health disorder Social History Household Members: Children Housing: House Alcohol intake: current Alcohol intake frequency: holidays/special occasions only Patient Tobacco Use Status: Former Tobacco user Quit Date: 16 yrs ago e-Cigarette/Vaping Use: Never Used Second Hand Smoke Exposure: No service: No Current occupational status: disabled Cognitive needs: No Hearing needs: No Vision needs: Yes Review of Systems Const All systems reviewed & are unremarkable except as noted in HPI and below Eyes Reports photophobia Physical Exam Vital Signs: Last Vital Signs Temp 97.5 F 01/30/24 08:51 Pulse 102 H 01/30/24 08:51 BP 124/84 01/30/24 08:51 Pulse Ox 96 01/30/24 08:51 Oxygen Delivery Method Room Air 01/30/24 08:51 BMI result Body Mass Index 32.8 Const General: cooperative and ill appearing acutely HEENT Head: Yes normal to inspection Ears: hearing grossly normal bilaterally Eyes General: appearance normal, both eyes and all related structures Alignment and Position: alignment normal Pupils: Equal, round and reactive pupils present and Pupil accommodation reflex normal EOM: EOMs intact bilaterally Direct Ophthalmoscopy: normal light reflex and photophobia Neck Neck: Yes no lymphadenopathy Resp Effort & Inspection: normal respiratory effort Auscultation: clear to auscultation bilaterally Cardio Jugular venous distension: no JVD Rate: regular rate Rhythm: regular rhythm GI Inspection: Yes normal to inspection Palpation (GI): Soft to palpation, Tenderness to palpation present (GI) (mild epigastric pain with deep palp) and No hepatosplenomegaly present Auscultation: normal bowel sounds Skin General skin exam: no rashes or lesions noted Neuro Cranial nerves: Yes Equal, round and reactive pupils present Extrem General: Yes normal to inspection and Yes capillary refill normal Psych Appearance: grossly normal Mental Status: mental status grossly normal Speech and movement: Normal speech and movement present Assessment & Plan Assessment & Plan (1) Viral illness: Code(s): B34.9 - Viral infection, unspecified Plan: Symptoms are consistent with viral illness. Covid/Flu/RSV swab obtained. We discussed conservative measures and symptomatic treatment. I will start her on Zofran and also Loperamide for her nausea and also diarrhea. We reviewed indications, use, possible s/e of these medications. We reviewed importance of hydration and advancing diet as tolerated. If she does not improve with time and these meaures, or if symptoms worsen/new symptoms develop, she should return to the clinic or go to the ED for further evaluation. She verbalizes understanding and agrees to plan. (2) Migraines: Code(s): G43.909 - Migraine, unspecified, not intractable, without status migrainosus Qualifiers: Migraine type: unspecified Plan: History of migraines. Having ophthalmic evaluation this month as they feel this may be a cause. She has done well previously with fioricet, which I will prescribe her a short course of. We reviewed indications, use, risks, possible s/e of this. She verbalizes understanding. (3) Nausea: Code(s): R11.0 - Nausea Plan: Zofran as above. Orders: Orders SARS-CoV2/FLU/RSV Today B34.9 - Viral infection, unspecified Medications: New loperamide Take one capsule after each loose stool, every 6 hours as needed. 2 mg PO Q6H 2 days PRN 8 caps 0RF loose stool A08.4 - Viral intestinal infection, unspecified [id number] 50-300-40 mg (Fioricet) Take one capsule every 6 hours as needed for migraine. Do not take Zolpidem or Acetaminophen in combination with this medication. 1 cap PO Q8H PRN 6 caps 0RF pain G43.909 - Migraine, unspecified, not intractable, without status migrainosus ondansetron HCl 4 mg PO Q8H PRN 14 tabs 0RF nausea and vomiting Coding Level of Care Code Est Pt Level 4 (73098) Diagnoses Viral illness B34.9 Migraines G43.909 Migraine type: unspecified Nausea R11.0
== END 2024-01-30 09:51 | disposition home or self-care (01) ==
PROVIDERS: PCP Physician Assistant; Visit Provider Nurse Practitioner Family
DX: B34.9 Viral infection, unspecified (principal); G43.909 Migraine, unspecified, not intractable, without status migrainosus; R11.0 Nausea
CPT/HCPCS: 99214

== ENCOUNTER 2024-01-30 13:36 | Outpatient (REF) | payer OTHER, SELFPAY ==
[2024-01-30 14:21] LABS: Influenza A PCR NEGATIVE (Negative); Influenza B PCR NEGATIVE (Negative); Resp Syncy Virus RNA Qual PCR NEGATIVE (Negative); SARS COV2 PCR INHOUSE NEGATIVE (Negative)
== END 2024-01-30 13:37 | disposition home or self-care (01) ==
LOC: HO.LNP 13:36
PROVIDERS: Visit Provider Nurse Practitioner Family
DX: B34.9 Viral infection, unspecified (principal); Z11.52 Encounter for screening for COVID-19; Z20.828 Contact with and (suspected) exposure to other viral communicable diseases
CPT/HCPCS: 0241U

== ENCOUNTER 2024-02-03 09:05 | Observation (INO) | payer OTHER, SELFPAY ==
--- NOTE | ~2024-02-03 | CT_ITS ---
EXAMINATION: CT ABDOMEN AND PELVIS WITH CONTRAST CLINICAL INFORMATION: Abdominal pain. COMPARISON: 01/30/2023 and 06/17/2021 TECHNIQUE: Multidetector volumetric images were obtained from the superior aspect of the liver through the pubic symphysis following administration 85 mL of Omnipaque 350 intravenous contrast. Sagittal and coronal reformatted images were obtained on the technologist's workstation. Oral contrast: No This CT examination was performed using dose optimization techniques as appropriate, variously including the following: *Automated exposure control *Adjustment of mA and/or kV according to patient size (this includes techniques or standardized protocols for targeted exams where dose is matched to indication/reason for exam; i.e. extremities or head) *Use of iterative reconstruction technique DLP: 698 mGy-cm FINDINGS: LUNG BASES: The visualized lung bases are unremarkable. LIVER, GALLBLADDER, AND BILIARY TREE: The liver is enlarged and decreased in attenuation. No focal hepatic lesion or biliary ductal dilatation is present. The gallbladder is surgically absent. PANCREAS: No ductal dilatation. SPLEEN: Chronic granulomatous disease of the spleen. ADRENAL GLANDS: No adrenal mass. KIDNEYS AND URETERS: The kidneys are normal in size, shape, and attenuation. 1.3 cm midpole right renal cyst. No further imaging follow-up is needed. No hydronephrosis, hydroureter, or calculi seen. No perinephric stranding. BLADDER: Underdistended. GASTROINTESTINAL TRACT: Gastric wall thickening is suspected. Small and large bowel loops are of normal caliber. No small bowel obstruction appendix is within normal limits. ABDOMINAL WALL: No significant hernia is appreciated. Fat-containing mass in the right upper outer thigh measuring 3.9 x 2.7 cm on image 77 of series 3. Fatty lesions in the gluteus musculature bilaterally on image 85 of series 3. LYMPH NODES: No bulky lymphadenopathy. VASCULAR: Unremarkable. PELVIC VISCERA: Uterus is absent. There is a persistent 3.4 x 2.3 x 2.5 cm lobulated mass in the low anterior pelvis. No large adnexal masses appreciated. OSSEOUS STRUCTURES: No destructive bone lesions. CT/CT abdomen pelvis w IV con IMPRESSION: Lobulated mass anterior to the vaginal cuff is unchanged relative to comparison studies. It measures approximately 3.4 x 2.3 x 2.5 cm. Gastric wall thickening is suspected. Consider correlation with direct visualization. Hepatomegaly and hepatic steatosis.
[2024-02-03 09:11] VITALS: BP 112/76; PULSE 75; RESP 20; TEMP 36.2; O2SAT 98; BMI 32.3
[2024-02-03 09:49] LABS: MANUAL DIFF FLAG NO
[2024-02-03 09:50] LABS: Basophils Percent Auto 0.9 % (0-2); Eosinophils Absolute Auto 0.2 X10*3/uL (0.0-0.4); Eosinophils Percent Auto 3.8 % (0-4); Hematocrit 40.1 % (37.0-47.0); Hemoglobin 13.7 g/dl (12.0-16.0); Imm Gran Abs Auto 0.01 X10*3/uL (0.00-0.03); Imm Gran Pct Auto 0.2 % (0.0-0.4); Lymphocytes Absolute Auto 1.9 X10*3/uL (1.2-4.9); Lymphocytes Percent Auto 39.7 % (20-40); Mean Corpuscular HGB Conc 34.2 g/dl (31.0-35.0); Mean Corpuscular Hemoglobin 28.3 pg (27.0-33.0); Mean Corpuscular Volume 82.9 fL (80.0-98.0); Mean Platelet Volume 8.5 fL (9.4-12.3); Monocytes Absolute Auto 0.4 X10*3/uL (0.1-1.2); Monocytes Percent Auto 7.9 % (2-11); Neutrophils Absolute Auto 2.2 x10*3/uL (2.0-8.3); Neutrophils Percent Auto 47.5 % (45-73); Platelet Count 252 X10*3/uL (160-400); Red Blood Count 4.84 X10*6/uL (4.20-5.50); Red Cell Distribution Width 11.9 % (11.0-16.0); White Blood Count 4.7 X10*3/uL (4.8-10.8)
[2024-02-03 10:06] LABS: Alanine Aminotransferase 32 U/L (0-31); Albumin Level 4.4 g/dL (3.5-5.0); Alkaline Phosphatase 56 U/L (39-117); Anion Gap 12 (12-20); Aspartate Amino Transferase 18 U/L (5-31); Bilirubin Total 0.7 mg/dL (0.0-1.0); Blood Urea Nitrogen 12 mg/dL (9-16); Calcium 9.2 mg/dL (8.4-10.2); Carbon Dioxide 25 mmol/L (22-29); Chloride 107 mmol/L (96-108); Estimated Glomerular Filt Rate > 60; Glucose Random 150 mg/dL (60-115); Sodium 140 mmol/L (135-145); Total Protein 7.3 g/dL (6.5-8.0)
--- NOTE | 2024-02-03 10:11 | ED.GENADULT ---
HPI - General Adult General Chief complaint: Nausea/Vomiting/Diarrhea Stated complaint: abd pain black stools Time Seen by Provider: 02/03/24 10:10 Source: patient Mode of arrival: ambulatory Limitations: no limitations History of Present Illness HPI narrative: 58-year-old female presents with nausea, diarrhea, abdominal pain, dark stool, ongoing for the past 9 days. Patient reports associated chills however no fevers. She reports she was seen at urgent Care, she was given Zofran, did not help with symptoms. Patient did also take some Pepto-Bismol 2-3 days ago with little to no relief. Patient denies chest pain, shortness of breath, headache, vision changes, dizziness, weakness, recent sick contacts. Related Data Home Medications ?Medication ?Instructions ?Recorded ?Confirmed citalopram 20 mg tablet 20 mg PO DAILY 08/19/20 01/02/24 clonazepam 1 mg tablet 1 mg PO BID PRN Anxiety 12/13/20 01/02/24 zolpidem 10 mg tablet 10 mg PO BEDTIME 04/04/22 01/02/24 clonazepam 2 mg tablet 2 mg PO DAILY PRN 01/30/24 Previous Rx's ?Medication ?Instructions ?Recorded cetirizine 10 mg tablet 10 mg PO DAILY PRN allergy 06/04/22 symptoms 90 days #90 tabs atorvastatin 40 mg tablet 40 mg PO BEDTIME #90 tabs 09/18/23 gabapentin 400 mg capsule 400 mg PO BID 90 days #180 caps 09/18/23 acetaminophen 500 mg tablet 1,000 mg (2 x 500 mg) PO QID PRN 11/05/23 (Tylenol Extra Strength) fever or pain #14 tabs albuterol sulfate 2.5 mg/3 mL 2.5 mg (3 mL) inhalation Q6H PRN 11/05/23 (0.083 %) solution for nebulization shortness of breath or wheezing 30 days #180 mL albuterol sulfate 90 mcg/actuation 2 puff inhalation QID 30 days #8.5 11/05/23 aerosol inhaler grams cholecalciferol (vitamin D3) 25 25 mcg PO DAILY 90 days #90 tabs 11/05/23 mcg (1,000 unit) tablet dicyclomine 20 mg tablet 20 mg PO BID PRN abdominal pain 10 11/05/23 days #20 tabs famotidine 40 mg tablet (Pepcid) 40 mg PO BEDTIME 90 days #90 tabs 11/05/23 fenofibrate nanocrystallized 48 mg 48 mg PO DAILY #90 tabs 11/05/23 tablet fluticasone propionate 110 1 puff inhalation BID 30 days #12 11/05/23 mcg/actuation HFA aerosol inhaler grams (Flovent HFA) ibuprofen 800 mg tablet 800 mg PO Q8H PRN pain 15 days #45 11/05/23 tabs metformin 1,000 mg tablet 1,000 mg PO DAILY 90 days #90 tabs 11/05/23 omeprazole 40 mg capsule,delayed 40 mg PO DAILY #90 caps 11/05/23 release pyridoxine (vitamin B6) 50 mg 100 mg (2 x 50 mg) PO DAILY 90 11/05/23 tablet days #180 tabs telmisartan 20 mg tablet (Micardis) 20 mg PO DAILY #90 tabs 11/05/23 blood sugar diagnostic (FreeStyle #50 ea 11/13/23 Precision Steffen Strips) blood-glucose meter (FreeStyle #1 ea 11/13/23 Precision Steffen Meter) polymyxin B sulfate 10,000 1 drp ophthalmic (eye) Q4H 7 days 11/19/23 unit-trimethoprim 1 mg/mL eye drops #10 mL tramadol 50 mg tablet 50 mg PO DAILY 10 days #10 tabs 11/26/23 sucralfate 100 mg/mL oral 10 ml PO BID 30 days #600 mL 01/02/24 suspension (Carafate) [id number]-[id number] 1 cap PO Q8H PRN pain #6 caps 01/30/24 50 mg-300 mg-40 mg capsule (Fioricet) loperamide 2 mg capsule 2 mg PO Q6H PRN loose stool 2 days 01/30/24 #8 caps ondansetron HCl 4 mg tablet 4 mg PO Q8H PRN nausea and 01/30/24 vomiting #14 tabs Allergies Allergy/AdvReac Type Severity Reaction Status Date / Time seafood Allergy Unknown Unknown Verified 02/03/24 09:14 lisinopril AdvReac Unknown cough Verified 02/03/24 09:14 Review of Systems Review of Systems: Yes all other systems are reviewed and are negative PMFSH Past Medical History Attestation statement: The following information was validated with the patient. Source: old records reviewed and nursing notes reviewed Medical History History of panic attacks Asthma Anal fissure Anal pain Pulmonary nodules Hx of renal calculi Flu-like symptoms Spondylosis of lumbar spine Fibromyalgia Dyslipidemia Obesity, Class I, BMI 30-34.9 Nephrolithiasis Recurrent Clostridioides difficile infection Hx of thyroid nodule Back pain Arthritis Depression Anxiety Type 2 diabetes mellitus HLD (hyperlipidemia) GERD (gastroesophageal reflux disease) HTN (hypertension) Surgical History History of esophagogastroduodenoscopy (EGD) Hx of cosmetic surgery Hx of tonsillectomy Hx of section Hx of lithotripsy Hx of endoscopy Hx of colonoscopy (~11/2016) S/P anal fissurectomy H/O hemorrhoidectomy Hx laparoscopic cholecystectomy S/P left oophorectomy H/O partial thyroidectomy (~2016) History of removal of laparoscopic gastric banding device (~2015) History of abdominoplasty History of colonoscopy History of laparoscopic adjustable gastric banding (~2010) History of bilateral breast reduction surgery (~2008) History of hysterectomy Family History Family History Father Diabetes Hypertension Depression Mother Lung cancer Diabetes Mental health disorder Brother HIV (human immunodeficiency virus infection) Depression Diabetes Sister Hypertension Diabetes Mental health disorder Daughter Mental health disorder Son Mental health disorder Social History Social History Household Members: Children Housing: House Alcohol intake: current Alcohol intake frequency: holidays/special occasions only Patient Tobacco Use Status: Former Tobacco user Quit Date: 16 yrs ago Smoked in Last 30 Days: No e-Cigarette/Vaping Use: Never Used Second Hand Smoke Exposure: No Use of substances other than those prescribed or required for medical reasons: No Advance Directives: No Advance Directives Information Provided: No Patient : No service: No Current occupational status: disabled Cognitive needs: No Hearing needs: No Vision needs: Yes Physical Exam ED Vital Signs: Vital Signs - 24 hr 02/03/24 09:11 02/03/24 12:39 Temperature 97.2 F 97.8 F Pulse Rate 75 54 Respiratory Rate 20 18 Blood Pressure 112/76 128/71 Pulse Oximetry 98 99 Oxygen Delivery Method Room Air Room Air BMI result Body Mass Index 32.3 vss Appearance: Alert.? Oriented X3.? No acute distress.? Head: Normocephalic, atraumatic, no step-offs or deformities Eyes: Pupils equal, round and reactive to light.? CVS: Normal heart rate and rhythm.? Pulses normal.? Respiratory: No respiratory distress.? Breath sounds normal.? Abdomen: Soft and nontender.? Skin: Skin warm and dry.? Normal skin color.? Normal skin turgor.? Extremities: No lower extremity edema.? No calf ttp. 5/5 strength to bilateral upper and lower extremities Back: No midline tenderness, no C-spine tenderness, full range of motion, no CVA tenderness bilaterally Neuro: Oriented X 3.? No motor deficit.? No sensory deficit. CN 2-12 intact Course Reevaluation(s) Reevaluation #1: CBC no acute findings requiring intervention. Appears to be around patient's baseline patient has history of leukopenia. Chemistry no acute findings. OBS negative. Flu, COVID, RSV negative. CT scan pending as well as urine. Time: 11:02 Reevaluation #2: CT abdomen pelvis with lobulated mass in the anterior vaginal cough, unchanged. Gastric wall thickening suspected. Correlation with direct visualization. I did reach out to patient's GI Dr. Hitchcock who recommends admission if patient is not tolerating p.o. she also mentions patient does have history of recurrent C diff. EGD can be done upon admission if necessary. Recommends discussing this case with the hospitalist Time: 15:03 Medications Administered Discontinued Medications Generic Name Dose Route Start Last Admin Trade Name Freq PRN Reason Stop Dose Admin Iohexol 100 ml 02/03/24 10:53 02/03/24 10:54 Iohexol 350 Mg/Ml 100 Ml Infus..Btl IV 02/03/24 10:54 85 ml ONCE ONE Administration Ketorolac Tromethamine 15 mg 02/03/24 10:37 02/03/24 11:28 Ketorolac Tromethamine 15 Mg/Ml Vial IVPUSH 02/03/24 10:38 15 mg ONCE ONE Administration Medical Decision Making Medical Decision Making [facility] Narrative: 1014 58-year-old female presents with nausea, diarrhea, abdominal pain and black stool the past few days worsening. No trauma not on thinners. Physical exam diffuse abdominal discomfort. Rectal exam performed with STEPHANE Schaefer be the bedside History and physical exam concerning for viral illness with dark stools. Unlikely lower GI bleed, acute abdomen. No signs of hemmroids on exam. Will rule out metabolic derangements. Dark stool likely from Pepto-Bismol Plan labs, imaging, OBS, urine Differential Diagnosis Differential Diagnoses: The differential diagnosis associated with the presentation includes History and physical exam concerning for viral illness with dark stools. Unlikely lower GI bleed, acute abdomen. No signs of hemmroids on exam. Will rule out metabolic derangements. Dark stool likely from Pepto-Bismol Admission/Observation Consideration of admission/observation: Escalation of care including admission/observation considered Lab Data MDM Lab Attestation statement: I reviewed the patient's lab results. 02/03/24 09:43 02/03/24 09:43 Labs: Lab Results 02/03/24 02/03/24 02/03/24 Range/Units 09:43 10:29 12:12 WBC 4.7 L (4.8-10.8) X10*3/uL RBC 4.84 (4.20-5.50) X10*6/uL Hgb 13.7 (12.0-16.0) g/dl Hct 40.1 (37.0-47.0) % MCV 82.9 (80.0-98.0) fL MCH 28.3 (27.0-33.0) pg MCHC 34.2 (31.0-35.0) g/dl RDW 11.9 (11.0-16.0) % Plt Count 252 (160-400) X10*3/uL MPV 8.5 L (9.4-12.3) fL Immature Gran % (Auto) 0.2 (0.0-0.4) % Neut % (Auto) 47.5 (45-73) % Lymph % (Auto) 39.7 (20-40) % [place] % (Auto) 7.9 (2-11) % Eos % (Auto) 3.8 (0-4) % Baso % (Auto) 0.9 (0-2) % Lymph # (Auto) 1.9 (1.2-4.9) X10*3/uL [place] # (Auto) 0.4 (0.1-1.2) X10*3/uL Eos # (Auto) 0.2 (0.0-0.4) X10*3/uL Baso # (Auto) 0.0 (0.0-0.2) X10*3/uL Abs Immat Gran (auto) 0.01 (0.00-0.03) X10*3/uL Absolute Neuts (auto) 2.2 (2.0-8.3) x10*3/uL Absolute Nucleated RBC 0.000 (0.0-0.012) X10*3/uL Nucleated RBC % (auto) 0.0 (0.0-0.2) /100WBC Sodium 140 (135-145) mmol/L Potassium 4.0 (3.3-5.1) mmol/L Chloride 107 (96-108) mmol/L Carbon Dioxide 25 (22-29) mmol/L Anion Gap 12 (12-20) BUN 12 (9-16) mg/dL Creatinine 0.80 (0.5-1.4) mg/dL Estim Creat Clear Calc 88.0 Estimated GFR > 60 Random Glucose 150 H (60-115) mg/dL Calcium 9.2 D (8.4-10.2) mg/dL Total Bilirubin 0.7 (0.0-1.0) mg/dL AST 18 (5-31) U/L ALT 32 H (0-31) U/L Alkaline Phosphatase 56 (39-117) U/L Total Protein 7.3 (6.5-8.0) g/dL Albumin 4.4 (3.5-5.0) g/dL Urine Color Yellow Urine Appearance Clear Urine pH 6.0 (5.0-9.0) Ur Specific [place] >= 1.030 H (1.005-1.025) Urine Protein Negative (Neg-Trace) mg/dL Urine Glucose (UA) Negative (Negative) mg/dL Urine Ketones Negative (Negative) mg/dL Urine Blood Negative (Negative) Urine Nitrite Negative (Negative) Ur Leukocyte Esterase Negative (Negative) Stool Occult Blood NEGATIVE (NEGATIVE) Influenza Type A (PCR) NEGATIVE (Negative) Influenza Type B (PCR) NEGATIVE (Negative) RSV RNA Qual (PCR) NEGATIVE (Negative) SARS-CoV-2 RNA (RT-PCR) NEGATIVE (Negative) Independent Interpretation I performed an independent interpretation of an: CT Scan Radiology Impression Discussion of test interpretation with radiology: I have reviewed the radiologist's reading. Critical Care Time Critical Care Time Critical Care Time: Yes Total Critical Care Time: 35 Attestation: I attest to this time spent taking care of the patient, obtaining history, physical, reviewing labs, imaging, speaking to my attending, speaking to specialist. Discharge Plan Discharge Clinical Impression: Black stool, Diarrhea, Abdominal pain, Nausea Patient Disposition: Admitted As Inpatient Prescriptions: No Action cetirizine 10 mg tablet 10 mg PO DAILY PRN (Reason: allergy symptoms) 90 Days Qty: 90 2RF (DME) FreeStyle Precision Steffen Strips Strip See Rx Instructions .ROUTE .MEDSUPPLY Qty: 50 6RF Rx Instructions: As directed once daily (DME) blood-glucose meter [FreeStyle Precision Steffen Meter] Misc See Rx Instructions .Route Qty: 1 0RF Rx Instructions: As directed polymyxin B sulf-trimethoprim 10,000 unit- 1 mg/mL drops 1 drp ophthalmic (eye) Q4H 7 Days Qty: 10 0RF Rx Instructions: while awake; do not exceed 6 doses in 24 hours tramadol 50 mg tablet 50 mg PO DAILY 10 Days Qty: 10 0RF acetaminophen [Tylenol Extra Strength] 500 mg tablet 1,000 mg PO QID PRN (Reason: fever or pain) Qty: 14 0RF albuterol sulfate 90 mcg/actuation HFA aerosol inhaler 2 puff inhalation QID 30 Days Qty: 8.5 3RF albuterol sulfate 2.5 mg /3 mL (0.083 %) solution for nebulization 2.5 mg inhalation Q6H PRN (Reason: shortness of breath or wheezing) 30 Days Qty: 180 2RF cholecalciferol (vitamin D3) 25 mcg (1,000 unit) tablet 25 mcg PO DAILY 90 Days Qty: 90 1RF dicyclomine 20 mg tablet 20 mg PO BID PRN (Reason: abdominal pain) 10 Days Qty: 20 0RF fenofibrate nanocrystallized 48 mg tablet 48 mg PO DAILY Qty: 90 2RF famotidine [Pepcid] 40 mg tablet 40 mg PO BEDTIME 90 Days Qty: 90 2RF fluticasone propionate [Flovent HFA] 110 mcg/actuation HFA aerosol inhaler 1 puff inhalation BID 30 Days Qty: 12 3RF ibuprofen 800 mg tablet 800 mg PO Q8H PRN (Reason: pain) 15 Days Qty: 45 2RF metformin 1,000 mg tablet 1,000 mg PO DAILY 90 Days Qty: 90 2RF Hold Instructions: Doctor's Order omeprazole 40 mg capsule,delayed release(DR/EC) 40 mg PO DAILY Qty: 90 1RF pyridoxine (vitamin B6) 50 mg tablet 100 mg PO DAILY 90 Days Qty: 180 2RF telmisartan [Micardis] 20 mg tablet 20 mg PO DAILY Qty: 90 2RF gabapentin 400 mg capsule 400 mg PO BID 90 Days Qty: 180 2RF atorvastatin 40 mg tablet 40 mg PO BEDTIME Qty: 90 2RF clonazepam 2 mg tablet 2 mg PO DAILY PRN ondansetron HCl 4 mg tablet 4 mg PO Q8H PRN (Reason: nausea and vomiting) Qty: 14 0RF loperamide 2 mg capsule 2 mg PO Q6H PRN (Reason: loose stool) 2 Days Qty: 8 0RF Rx Instructions: Take one capsule after each loose stool, every 6 hours as needed. [id number] [Fioricet] 50-300-40 mg capsule 1 cap PO Q8H PRN (Reason: pain) Qty: 6 0RF Rx Instructions: Take one capsule every 6 hours as needed for migraine. Do not take Zolpidem or Acetaminophen in combination with this medication. clonazepam 1 mg tablet 1 mg PO BID PRN (Reason: Anxiety) Patient Comments: 1 tab in the morning and 2 tablets at bedtime zolpidem 10 mg tablet 10 mg PO BEDTIME citalopram 20 mg tablet 20 mg PO DAILY sucralfate [Carafate] 100 mg/mL suspension 10 ml PO BID 30 Days Qty: 600 1RF Print Language: [place]
[2024-02-03 10:34] LABS: OBS Int Ctl Valid YES; OBS1 NEGATIVE (NEGATIVE)
[2024-02-03] MEDS: iohexoL 350 MG/ML 100 ML INFUS..BTL IV (10:54)
[2024-02-03] MEDS: Ketorolac Tromethamine 15 MG/ML VIAL IVPUSH (11:28)
[2024-02-03 11:29] LABS: Influenza A PCR NEGATIVE (Negative); Influenza B PCR NEGATIVE (Negative); Resp Syncy Virus RNA Qual PCR NEGATIVE (Negative); SARS COV2 PCR INHOUSE NEGATIVE (Negative)
[2024-02-03 12:20] LABS: Appearance Urine Clear; Color Urine Yellow; Glucose Urine UA Negative (Negative); Leukocyte Esterase Urine Negative (Negative); Nitrite Urine Negative (Negative); Specific Gravity - Urine >= 1.030 (1.005-1.025); Urine Blood Negative (Negative); Urine Ketones Negative (Negative); Urine Protein Negative (Neg-Trace)
[2024-02-03 12:39] VITALS: BP 128/71; PULSE 54; RESP 18; TEMP 36.6; O2SAT 99
[2024-02-03 16:00] VITALS: BP 127/58; PULSE 58; RESP 15; TEMP 37.1; O2SAT 98
[2024-02-03 17:03] LABS: CDiff Gene PCR NEGATIVE (Negative)
[2024-02-03 17:19] LABS: Adenovirus F 40/41 Not Detected (Not Detect.); Astrovirus Not Detected (Not Detect.); Campylobacter Not Detected (Not Detect.); Cryptosporidium Not Detected (Not Detect.); Cyclospora cayetanensis Not Detected (Not Detect.); E. coli EAEC Not Detected (Not Detect.); E. coli EPEC Not Detected (Not Detect.); E. coli ETEC Not Detected (Not Detect.); E. coli STEC Not Detected (Not Detect.); Entamoeba histolytica Not Detected (Not Detect.); Giardia lamblia Not Detected (Not Detect.); Norovirus GI/GII Not Detected (Not Detect.); Plesiomonas shigelloides Not Detected (Not Detect.); Rotavirus A Not Detected (Not Detect.); Salmonella Not Detected (Not Detect.); Sapovirus Not Detected (Not Detect.); Shigella sp./EIEC Not Detected (Not Detect.); Vibrio Not Detected (Not Detect.); Vibrio Cholerae Not Detected (Not Detect.); Yersinia enterocolitica Not Detected (Not Detect.)
[2024-02-03 17:37] VITALS: BP 142/71; PULSE 52; RESP 14; TEMP 36.7; O2SAT 98
--- NOTE | 2024-02-03 17:54 | PM.IMHP ---
History of Present Illness Date of Service: 02/03/24 Attending physician on admission: Jason Harvey Chief Complaint: epigastric discomfort /diarrhae 58 y/o F with pmhx hemorrhoid, hypertension, diabetes type 2, migraine headache, thyroid disease, nephrolithiasis, history of diarrhea and constipation and depression and anxiety, also has history of recurrent C diff infection in the past-patient comes to the hospital with nausea, diarrhea, abdominal pain, dark stool, ongoing for the past 9 days. She denies any using outside food, any sick contacts or antibiotics recently or travel. Patient reports associated chills however no fevers. She reports she was seen at urgent Care, she was given Zofran, did not help with symptoms and also tried some Pepto-Bismol 2-3 days ago with little to no relief. Patient has epigastric discomfort mostly with the food, also has diarrhea she says that at baseline she has some diarrhea but now is getting somewhat worse. Denies any other abdominal pain. She denies any vomiting, denies any francisco j blood in stool. Patient says that she is unable to take p.o. also because every time she eats it brings pain and diarrhea back. Patient denies chest pain, shortness of breath, headache, vision changes, dizziness, weakness, recent sick contacts. Lab imaging reviewed: cbc: wbc: 4.7 CMP seems fine except ALT is 32. ct abd: Lobulated mass anterior to the vaginal cuff is unchanged relative to comparison studies. It measures approximately 3.4 x 2.3 x 2.5 cm. Gastric wall thickening is suspected. Consider correlation with direct visualization. Hepatomegaly and hepatic steatosis. cdiff,Gip negative fobt negative ED physician requested admission for decreased p.o. intake, diarrhea, epigastric discomfort and discussed the case with GI-? need observation for possible egd. Review of Systems Review of Systems: Yes all other systems are reviewed and are negative [facility] Medical History History of panic attacks Asthma Anal fissure Anal pain Pulmonary nodules Hx of renal calculi Flu-like symptoms Spondylosis of lumbar spine Fibromyalgia Dyslipidemia Obesity, Class I, BMI 30-34.9 Nephrolithiasis Recurrent Clostridioides difficile infection Hx of thyroid nodule Back pain Arthritis Depression Anxiety Type 2 diabetes mellitus HLD (hyperlipidemia) GERD (gastroesophageal reflux disease) HTN (hypertension) Family History Father Diabetes Hypertension Depression Mother Lung cancer Diabetes Mental health disorder Brother HIV (human immunodeficiency virus infection) Depression Diabetes Sister Hypertension Diabetes Mental health disorder Daughter Mental health disorder Son Mental health disorder Surgical History History of esophagogastroduodenoscopy (EGD) Hx of cosmetic surgery Hx of tonsillectomy Hx of section Hx of lithotripsy Hx of endoscopy Hx of colonoscopy (~11/2016) S/P anal fissurectomy H/O hemorrhoidectomy Hx laparoscopic cholecystectomy S/P left oophorectomy H/O partial thyroidectomy (~2016) History of removal of laparoscopic gastric banding device (~2015) History of abdominoplasty History of colonoscopy History of laparoscopic adjustable gastric banding (~2010) History of bilateral breast reduction surgery (~2008) History of hysterectomy Social History Household Members: Children Housing: House Alcohol intake: current Alcohol intake frequency: holidays/special occasions only Patient Tobacco Use Status: Former Tobacco user Quit Date: 16 yrs ago Smoked in Last 30 Days: No e-Cigarette/Vaping Use: Never Used Second Hand Smoke Exposure: No Use of substances other than those prescribed or required for medical reasons: No Advance Directives: No Advance Directives Information Provided: No Patient : No service: No Current occupational status: disabled Cognitive needs: No Hearing needs: No Vision needs: Yes Meds Allergies Allergy/AdvReac Type Severity Reaction Status Date / Time seafood Allergy Unknown Unknown Verified 02/03/24 09:14 lisinopril AdvReac Unknown cough Verified 02/03/24 09:14 Active Medications: Current Medications Lidocaine (Lidocaine 4 % Patch Adh..Patch) 1 patch TRANSDERMA DAILY ELIA; Protocol Pantoprazole Sodium (Pantoprazole Sodium 40 Mg/10 Ml Vial) 40 mg IVPUSH DAILY ELIA Sodium Chloride (0.9 % Sodium Chloride Flush 3 Ml Syringe) 3 ml IVFLUSH QSHIFT ELIA Home Medications ?Medication ?Instructions ?Recorded ?Confirmed ?Last Taken ?Type citalopram 20 mg tablet 20 mg PO DAILY 10/23/20 03/07/24 02/19/21 History clonazepam 1 mg tablet 1 mg PO BID PRN Anxiety 12/13/20 01/02/24 05/17/23 06:30 History zolpidem 10 mg tablet 10 mg PO BEDTIME 04/04/22 01/02/24 Unknown History clonazepam 2 mg tablet 2 mg PO DAILY PRN 01/30/24 Unknown History Physical Exam Vital Signs and Narrative: Vital Signs: Last Vital Signs Temp 98.0 F 02/03/24 17:37 Pulse 52 02/03/24 17:37 Resp 14 02/03/24 17:37 BP 142/71 H 02/03/24 17:37 Pulse Ox 98 02/03/24 17:37 O2 Del Method Room Air 02/03/24 17:37 BMI result Body Mass Index 32.3 Appearance: Alert.? Oriented X3. cvs: rrr, [id number] , no murmur res: clear to auscultation ,no rhonchii or wheezing abd: no rebound or guarding ,mild epigastric pain, bs present. ext pulses present , no cyanosis . neuro: axo3 , nonfocal. Results Labs 02/03/24 09:43 02/03/24 09:43 Labs: Laboratory Results - last 24 hr 02/03/24 02/03/24 02/03/24 09:43 10:29 12:12 MCV 82.9 MCH 28.3 MCHC 34.2 RDW 11.9 Plt Count 252 MPV 8.5 L Immature Gran % (Auto) 0.2 Neut % (Auto) 47.5 Lymph % (Auto) 39.7 [place] % (Auto) 7.9 Eos % (Auto) 3.8 Baso % (Auto) 0.9 Lymph # (Auto) 1.9 [place] # (Auto) 0.4 Eos # (Auto) 0.2 Baso # (Auto) 0.0 Abs Immat Gran (auto) 0.01 Absolute Neuts (auto) 2.2 Absolute Nucleated RBC 0.000 Nucleated RBC % (auto) 0.0 Anion Gap 12 Estim Creat Clear Calc 88.0 Estimated GFR > 60 Random Glucose 150 H Calcium 9.2 D Total Bilirubin 0.7 AST 18 ALT 32 H Alkaline Phosphatase 56 Total Protein 7.3 Albumin 4.4 Urine Color Yellow Urine Appearance Clear Urine pH 6.0 Ur Specific [place] >= 1.030 H Urine Protein Negative Urine Glucose (UA) Negative Urine Ketones Negative Urine Blood Negative Urine Nitrite Negative Ur Leukocyte Esterase Negative Stool Occult Blood NEGATIVE Stl C. cayetanensis PCR Stool Rotavirus A PCR Stl Adenov F 40 PCR Stool Astrovirus (PCR) Stool Campylobacter PCR Stool Cryptosporidium PCR Stl Sh Tox Pr E STEC PCR Stool E coli O157 PCR Stl Enterotoxigenic E PCR Stool EPEC (PCR) Stool EAEC (PCR) Stl E. histolytica PCR Stool Giardia Lamblia PCR Stl P. shigelloides PCR Stool Salmonella PCR Stool Sapovirus (PCR) Stl Shigella/EIEC PCR St Y.enterocolitica PCR Stool Vibrio (PCR) Stl Vibrio cholerae PCR Stl Norovirus GI/GII PCR C. difficile Tox B Gene Influenza Type A (PCR) NEGATIVE Influenza Type B (PCR) NEGATIVE RSV RNA Qual (PCR) NEGATIVE SARS-CoV-2 RNA (RT-PCR) NEGATIVE 02/03/24 15:43 MCV MCH MCHC RDW Plt Count MPV Immature Gran % (Auto) Neut % (Auto) Lymph % (Auto) [place] % (Auto) Eos % (Auto) Baso % (Auto) Lymph # (Auto) [place] # (Auto) Eos # (Auto) Baso # (Auto) Abs Immat Gran (auto) Absolute Neuts (auto) Absolute Nucleated RBC Nucleated RBC % (auto) Anion Gap Estim Creat Clear Calc Estimated GFR Random Glucose Calcium Total Bilirubin AST ALT Alkaline Phosphatase Total Protein Albumin Urine Color Urine Appearance Urine pH Ur Specific [place] Urine Protein Urine Glucose (UA) Urine Ketones Urine Blood Urine Nitrite Ur Leukocyte Esterase Stool Occult Blood Stl C. cayetanensis PCR Not Detected Stool Rotavirus A PCR Not Detected Stl Adenov F PCR Not Detected Stool Astrovirus (PCR) Not Detected Stool Campylobacter PCR Not Detected Stool Cryptosporidium PCR Not Detected Stl Sh Tox Pr E STEC PCR Not Detected Stool E coli O157 PCR Not applicable Stl Enterotoxigenic E PCR Not Detected Stool EPEC (PCR) Not Detected Stool EAEC (PCR) Not Detected Stl E. histolytica PCR Not Detected Stool Giardia Lamblia PCR Not Detected Stl P. shigelloides PCR Not Detected Stool Salmonella PCR Not Detected Stool Sapovirus (PCR) Not Detected Stl Shigella/EIEC PCR Not Detected St Y.enterocolitica PCR Not Detected Stool Vibrio (PCR) Not Detected Stl Vibrio cholerae PCR Not Detected Stl Norovirus GI/GII PCR Not Detected C. difficile Tox B Gene NEGATIVE Influenza Type A (PCR) Influenza Type B (PCR) RSV RNA Qual (PCR) SARS-CoV-2 RNA (RT-PCR) Imaging Radiologist's Impressions: Impressions Abdomen/Pelvis CT 02/03/24 10:55 IMPRESSION: Lobulated mass anterior to the vaginal cuff is unchanged relative to comparison studies. It measures approximately 3.4 x 2.3 x 2.5 cm. Gastric wall thickening is suspected. Consider correlation with direct visualization. Hepatomegaly and hepatic steatosis. Assessment and Plan (1) Abdominal pain: Qualifiers: Abdominal location: epigastric Qualified Code(s): R10.13 - Epigastric pain Status: Acute (2) Diarrhea: Qualifiers: Diarrhea type: unspecified type Qualified Code(s): R19.7 - Diarrhea, unspecified Status: Acute Plan 58 y/o F with pmhx hemorrhoid, hypertension, diabetes type 2, migraine headache, thyroid disease, nephrolithiasis, history of diarrhea and constipation and depression and anxiety, also has history of recurrent C diff infection in the past-come with cystic pain/nausea , diarrhea Epigastric discomfort, worsened diarrhea C diff/GI panel negative Fecal occult blood negative Black stool probably related to Pepto-Bismol, fecal occult blood negative Ppi, clear liquid diet if tolerates, IV fluids, GI evaluation Asthma: No shortness of breath stable, mild intermittent asthma. Will continue home medications once medical reconciliation done Hypertension: Blood pressure slightly elevated, will start blood pressure medications once medical reconciliation done Diabetes type 2: Fingerstick with sliding scale coverage Depression anxiety/thyroid disease will start home medications once medical reconciliation done DVT prophylaxis: scd Patient will benefit from overnight observation for possible viral gastroenteritis versus gastritis- since can not tolerate diet, need IV fluid, need GI evaluation for possible EGD if needed. Quality Stroke Does the patient have a stroke diagnosis?: No VTE Prior VTE?: No VTE Risk Level:: Medical - moderate - high VTE Device Contraindication: N/A - Device Ordered VTE Drug Contraindication: N/A - Med Ordered
[2024-02-03] MEDS: Lidocaine 4 % Patch ADH..PATCH 1 PATCH TRANSDERMA (18:18)
[2024-02-03] MEDS: Pantoprazole Sodium 40 MG/10 ML VIAL IVPUSH (18:19)
[2024-02-03 18:43] LABS: Glucose, Whole Blood 151 mg/dL (60-115)
--- NOTE | 2024-02-03 19:20 | PHA.MEDREC ---
Pharmacy Consult ? Medication Reconciliation Pharmacy has completed the medication reconciliation. Spoke to patient and confirmed medication list. Verified with patient twice that she's now taking gabapentin 300 mg once a day in the morning.
[2024-02-03 19:47] VITALS: BP 193/112; PULSE 82; RESP 20; TEMP 36.2; O2SAT 96
[2024-02-03 19:50] VITALS: BP 117/63; PULSE 64; RESP 15; TEMP 36.7; O2SAT 95
[2024-02-03 20:32] LABS: Glucose, Whole Blood 122 mg/dL (60-115)
[2024-02-03] MEDS: 0.9 % Sodium Chloride 1,000 ML 999 ML IV (22:41)
[2024-02-04] VITALS (15 sets, daily range): BP systolic 116–154; BP diastolic 57–90; PULSE 47–76; RESP 8–97; TEMP 36.1–36.9; O2SAT 18–100; BMI 33.4
[2024-02-04 07:51] LABS: Glucose, Whole Blood 145 mg/dL (60-115)
[2024-02-04] MEDS: Pantoprazole Sodium 40 MG/10 ML VIAL IVPUSH (07:59)
[2024-02-04] MEDS: Lidocaine 4 % Patch ADH..PATCH 1 PATCH TRANSDERMA (08:00)
[2024-02-04] MEDS: 0.9 % Sodium Chloride Flush 3 ML SYRINGE IVFLUSH ×3 (08:03→20:53)
[2024-02-04] MEDS: clonazePAM 1 MG TABLET PO (08:32)
[2024-02-04] MEDS: Escitalopram Oxalate 10 MG TABLET PO (08:32)
[2024-02-04] MEDS: Gabapentin 300 MG CAPSULE PO (08:32)
--- NOTE | 2024-02-04 08:34 | PM.GICN ---
History of Present Illness Data of Consult Service Date: 02/04/24 Requesting physician: Jason Harvey Primary Care Provider: Silvino Andujar PA-C HPI Reason for consult: nausea, vomiting 58 y/o F with pmhx hemorrhoid, hypertension, diabetes type 2, migraine headache, thyroid disease, nephrolithiasis, and obesity who I am seeing for assessment for nausea and other GI symptoms Patient has noted 9 d of nausea without vomiting along with epigastric pain, and diarrhea. The epigastric pain is cramping and non radiating and worse with food, even water so she has had a poor appetite. The diarrhea is worse with food, no blood or melena noted. Patient denies chest pain, shortness of breath, headache, vision changes, dizziness, weakness, recent sick contacts. Tried some Pepto-Bismol 2-3 days ago with little to no relief. Ct abdo with gastric thickening,hepatomegaly and lobulated mass near vaginal cuff. Labs w/ nml HGB and neg C diff Last EGD, colo 04/2023-- mild gastritis, esophagitis, diverticulosis, neg random bx for GES 2020--- rapid emptying Review of Systems Review of Systems: Constitutional : No Weight loss, No Fever, No Chills ENT/Mouth : No sore throat, No Rhinorrhea Eyes: No Swelling, No Redness Cardiovascular : No Chest Pain, No SOB, No Edema Respiratory : No Cough, No Sputum, No Wheezing Gastrointestinal : see HPI Genitourinary : NO Dysuria, No Urinary Frequency, No Hematuria, No Urgency Musculoskeletal : + joint pain --take tramadol prn, No Myalgias, No Joint Swelling Skin : No Skin Lesions, No rash Neuro : No Weakness, No Numbness, No Dizziness, No Headache Psych : No Anxiety/Panic, No Depression Heme/Lymph: No Bruising, No Lymphadenopathy Endocrine : No Polyuria, No Polydipsia All other systems reviewed and are negative. [facility] Past Medical History Medical History History of panic attacks Asthma Anal fissure Anal pain Pulmonary nodules Hx of renal calculi Flu-like symptoms Spondylosis of lumbar spine Fibromyalgia Dyslipidemia Obesity, Class I, BMI 30-34.9 Nephrolithiasis Recurrent Clostridioides difficile infection Hx of thyroid nodule Back pain Arthritis Depression Anxiety Type 2 diabetes mellitus HLD (hyperlipidemia) GERD (gastroesophageal reflux disease) HTN (hypertension) Family History Family History Father Diabetes Hypertension Depression Mother Lung cancer Diabetes Mental health disorder Brother HIV (human immunodeficiency virus infection) Depression Diabetes Sister Hypertension Diabetes Mental health disorder Daughter Mental health disorder Son Mental health disorder Surgical History Surgical History History of esophagogastroduodenoscopy (EGD) Hx of cosmetic surgery Hx of tonsillectomy Hx of section Hx of lithotripsy Hx of endoscopy Hx of colonoscopy (~11/2016) S/P anal fissurectomy H/O hemorrhoidectomy Hx laparoscopic cholecystectomy S/P left oophorectomy H/O partial thyroidectomy (~2016) History of removal of laparoscopic gastric banding device (~2015) History of abdominoplasty History of colonoscopy History of laparoscopic adjustable gastric banding (~2010) History of bilateral breast reduction surgery (~2008) History of hysterectomy Social History Social History Household Members: Children Housing: House Alcohol intake: current Alcohol intake frequency: holidays/special occasions only Patient Tobacco Use Status: Former Tobacco user Quit Date: 16 yrs ago e-Cigarette/Vaping Use: Never Used Second Hand Smoke Exposure: No service: No Current occupational status: disabled Cognitive needs: No Hearing needs: No Vision needs: Yes Meds Allergies Allergy/AdvReac Type Severity Reaction Status Date / Time seafood Allergy Unknown Unknown Verified 02/03/24 09:14 lisinopril AdvReac Unknown cough Verified 02/03/24 09:14 Active Medications: Current Medications Albuterol Sulfate (Albuterol Sulfate (0.083%) 2.5 Mg/3 Ml Vial.Neb) 2.5 mg INHALE RQ6H PRN PRN Reason: shortness of breath or wheezing Albuterol Sulfate (Albuterol Sulfate 90 Mcg 8 Gm Inhaler) 2 puff INHALE RQID ELIA Clonazepam (Clonazepam 1 Mg Tablet) 1 mg PO DAILY@0900 ELIA Last Admin: 02/04/24 08:32 Dose: 1 mg Clonazepam (Clonazepam 1 Mg Tablet) 2 mg PO BEDTIME ELIA Escitalopram Oxalate (Escitalopram Oxalate 10 Mg Tablet) 10 mg PO DAILY@0900 [facility] Last Admin: 02/04/24 08:32 Dose: 10 mg Fluticasone Propionate (Fluticasone Propionate 100 Mcg Blst.W.Dev) 1 puff INHALE RBID [facility] Gabapentin (Gabapentin 300 Mg Capsule) 300 mg PO DAILY@0900 [facility] Last Admin: 02/04/24 08:32 Dose: 300 mg Glucose (Glucose Gel 15 Gm Gel..Gram.) 15 gm PO Q15M PRN; Protocol PRN Reason: per Hypoglycemia Standing Ord. Dextrose (D10) 250 mls @ 750 mls/hr IV Q15M PRN; Protocol PRN Reason: per Hypoglycemia Standing Ord. Insulin Human Lispro (Insulin Lispro 100 Unit/Ml 3 Ml Vial) 0 unit SUBCUT QIDACHS [facility]; Protocol Last Admin: 02/04/24 08:04 Dose: Not Given Lidocaine (Lidocaine 4 % Patch Adh..Patch) 1 patch TRANSDERMA DAILY [facility]; Protocol Last Admin: 02/04/24 08:00 Dose: 1 patch Loperamide HCl (Loperamide Hcl 2 Mg Capsule) 2 mg PO Q4H PRN PRN Reason: diarrhae Loratadine (Loratadine 10 Mg Tablet) 10 mg PO DAILY PRN PRN Reason: allergy symptoms Pantoprazole Sodium (Pantoprazole Sodium 40 Mg/10 Ml Vial) 40 mg IVPUSH DAILY [facility] Last Admin: 02/04/24 07:59 Dose: 40 mg Pyridoxine HCl (Pyridoxine Hcl (Vitamin B6) 50 Mg Tablet) 100 mg PO DAILY [facility] Sodium Chloride (0.9 % Sodium Chloride Flush 3 Ml Syringe) 3 ml IVFLUSH QSHIFT [facility] Last Admin: 02/04/24 08:03 Dose: 3 ml Zolpidem Tartrate (Zolpidem Tartrate 5 Mg Tablet) 5 mg PO BEDTIME [facility] Home Medications ?Medication ?Instructions ?Recorded ?Confirmed ?Last Taken ?Type citalopram 20 mg tablet 20 mg PO DAILY@0900 08/19/20 02/03/24 02/02/24 History clonazepam 1 mg tablet 1 mg PO DAILY@0900 Anxiety 12/13/20 02/03/24 02/02/24 History zolpidem 10 mg tablet 10 mg PO BEDTIME 04/04/22 02/03/24 Unknown History clonazepam 2 mg tablet 2 mg PO BEDTIME 01/30/24 02/03/24 02/02/24 History cholecalciferol (vitamin D3) 25 25 mcg PO QPM 02/03/24 02/03/24 02/02/24 History mcg (1,000 unit) tablet fluticasone propionate 110 1 puff inhalation BID 02/03/24 02/03/24 02/02/24 History mcg/actuation HFA aerosol inhaler gabapentin 300 mg capsule 300 mg PO DAILY@0900 02/03/24 02/03/24 02/02/24 History pantoprazole 20 mg tablet,delayed 20 mg PO BID 02/03/24 02/03/24 02/02/24 History release telmisartan 20 mg tablet (Micardis) 20 mg PO DAILY@0902/03/24 02/03/24 02/02/24 History tramadol 50 mg tablet 50 mg PO DAILY PRN Pain 02/03/24 02/03/24 Unknown History Physical Exam Vital Signs: Vital Signs: Last Vital Signs Temp 97.7 F 02/04/24 07:35 Pulse 47 L 02/04/24 07:35 Resp 8 L 02/04/24 07:35 BP 118/61 02/04/24 07:35 Pulse Ox 100 02/04/24 07:35 O2 Del Method Room Air 02/04/24 07:35 BMI result Body Mass Index 32.3 EXAM: GENERAL: The patient is well developed and nontoxic. VITAL SIGNS:see workflow HEENT: Nonicteric sclerae, PERRLA, EOMI. Oropharynx clear. Moist mucous membranes. Conjunctivae appear well perfused. No thyroid mass. CHEST: Chest wall is nontender. HEART: Regular rate and rhythm without murmurs. LUNGS: Clear to auscultation bilaterally. ABDOMEN: Soft, positive bowel sounds, tender epigastrium, no organomegaly.no flank tenderness SKIN: No rash, no excessive bruising, petechiae, or purpura. NEUROLOGIC: Cranial nerves II-XII intact without motor/sensory deficit. Psych: normal affect Results Labs 02/03/24 09:43 02/03/24 09:43 Labs: Short CBC 02/03/24 Range/Units 09:43 WBC 4.7 L (4.8-10.8) X10*3/uL Hgb 13.7 (12.0-16.0) g/dl Hct 40.1 (37.0-47.0) % Plt Count 252 (160-400) X10*3/uL BMP 02/03/24 09:43 Sodium 140 Potassium 4.0 Chloride 107 Carbon Dioxide 25 BUN 12 Creatinine 0.80 Calcium 9.2 D Liver Function 02/03/24 Range/Units 09:43 Total Bilirubin 0.7 (0.0-1.0) mg/dL AST 18 (5-31) U/L ALT 32 H (0-31) U/L Alkaline Phosphatase 56 (39-117) U/L Albumin 4.4 (3.5-5.0) g/dL Urine 02/03/24 Range/Units 12:12 Urine Color Yellow Urine Appearance Clear Urine pH 6.0 (5.0-9.0) Ur Specific [place] >= 1.030 H (1.005-1.025) Urine Protein Negative (Neg-Trace) mg/dL Urine Glucose (UA) Negative (Negative) mg/dL Imaging CT scan - abdomen: Attestation: I personally reviewed and interpreted this imaging study as follows: (thickened stomach, but could be peristalsis ) Assessment and Plan (1) Abdominal pain: Qualifiers: Abdominal location: epigastric Qualified Code(s): R10.13 - Epigastric pain Status: Acute (2) Nausea: Status: Acute Plan 1/ nausea, epigastric pain and diarrhea for about 1 week, could be viral or infectious gastroenteritis, ddx: stress gastritis, H pylori gastritis, denies nsaid use, ischemic gastropathy PLAN: 1/ EGD today 2/ cont with IV PPI, can add carafate 3/ send for stool GI PCR panel 4/ if ongoign sx consider trial of flagyl Procedures Date of Service Date of Service: 02/04/24
[2024-02-04] MEDS: Pyridoxine HCl (Vitamin B6) 50 MG TABLET 100 MG PO (09:03)
[2024-02-04] MEDS: Acetaminophen 325 MG TABLET 650 MG PO (09:03)
[2024-02-04 11:36] LABS: Glucose, Whole Blood 121 mg/dL (60-115)
--- NOTE | 2024-02-04 11:58 | HO.ANESPROP2 ---
HPI - Anesthesia Eval Consult details Narrative: Chronic Epigastric Pain PMFSH Active Problems Active Problems: All Active Problems Nausea (Acute) Abdominal pain (Acute) Diarrhea (Acute) Black stool (Acute) Plantar fasciitis, bilateral (Acute) Pelvic pain (Acute) Stress incontinence (Acute) Esophageal spasm (Acute) Plantar fasciitis of left foot (Acute) Nephrolithiasis (Acute) Hematuria (Acute) Renal colic (Acute) Epigastric pain (Acute) Schatzki's ring (Acute) Colon cancer screening (Acute) Somatic dysfunction of right sacroiliac joint (Acute) UTI (urinary tract infection) (Acute) Screening for HIV (human immunodeficiency virus) (Acute) Screening for STD (sexually transmitted disease) (Acute) Annual physical exam (Acute) Sciatica associated with disorder of lumbar spine (Acute) Lumbar radiculopathy (Acute) Migraines (Acute) Schatzki's ring (Acute) Abdominal bloating (Acute) Bad breath (Acute) Dysphagia, pharyngoesophageal phase (Acute) Acute sinusitis (Acute) Diarrhea (Acute) Coxalgia (Acute) Abdominal pain (Acute) Gastritis (Acute) C. difficile diarrhea (Acute) Upper respiratory infection (Acute) Urinary tract infection (Acute) Asthma (Acute) Screening for STD (sexually transmitted disease) (Acute) Annual physical exam (Acute) MDD (major depressive disorder), recurrent episode, moderate (Acute) EMIL (generalized anxiety disorder) (Acute) Hemorrhoids (Acute) Swelling of toe of right foot (Acute) Somnolence, daytime (Acute) Exacerbation of asthma (Acute) Cough (Acute) Yeast infection (Acute) Calcified granuloma of lung (Acute) Pre-op evaluation (Acute) Asthma (Acute) Abdominal fullness in left flank (Acute) Encounter for surgical aftercare following surgery on the skin and subcutaneous tissue (Acute) THOMAS (obstructive sleep apnea) (Acute) Anemia (Acute) Nephrolithiasis (Acute) Drug induced constipation (Acute) Chest discomfort (Acute) Bronchitis (Acute) GERD (gastroesophageal reflux disease) (Acute) Hemorrhoids (Acute) Obese (Acute) Pain in right leg (Acute) Bacterial conjunctivitis of both eyes (Acute) Left leg pain (Acute) Pre-op evaluation (Acute) Chronic diarrhea (Acute) Clostridioides difficile infection (Acute) Anal fissure (Acute) Anal pain (Acute) Pulmonary nodules (Acute) Flu-like symptoms (Acute) Spondylosis of lumbar spine (Acute) Fibromyalgia (Acute) Type 2 diabetes mellitus (Acute) Dyslipidemia (Acute) HTN (hypertension) (Acute) Obesity, Class I, BMI 30-34.9 (Acute) Recurrent Clostridioides difficile infection (Acute) HLD (hyperlipidemia) (Acute) Past Medical History Medical History History of panic attacks Asthma Anal fissure Anal pain Pulmonary nodules Hx of renal calculi Flu-like symptoms Spondylosis of lumbar spine Fibromyalgia Dyslipidemia Obesity, Class I, BMI 30-34.9 Nephrolithiasis Recurrent Clostridioides difficile infection Hx of thyroid nodule Back pain Arthritis Depression Anxiety Type 2 diabetes mellitus HLD (hyperlipidemia) GERD (gastroesophageal reflux disease) HTN (hypertension) Family History Family History Father Diabetes Hypertension Depression Mother Lung cancer Diabetes Mental health disorder Brother HIV (human immunodeficiency virus infection) Depression Diabetes Sister Hypertension Diabetes Mental health disorder Daughter Mental health disorder Son Mental health disorder Family history of problems with anesthesia: No Surgical History Surgical History History of esophagogastroduodenoscopy (EGD) Hx of cosmetic surgery Hx of tonsillectomy Hx of section Hx of lithotripsy Hx of endoscopy Hx of colonoscopy (~11/2016) S/P anal fissurectomy H/O hemorrhoidectomy Hx laparoscopic cholecystectomy S/P left oophorectomy H/O partial thyroidectomy (~2016) History of removal of laparoscopic gastric banding device (~2015) History of abdominoplasty History of colonoscopy History of laparoscopic adjustable gastric banding (~2010) History of bilateral breast reduction surgery (~2008) History of hysterectomy History of Problems with Anesthesia: No Social History Social History Household Members: Children Housing: House Alcohol intake: current Alcohol intake frequency: holidays/special occasions only Patient Tobacco Use Status: Former Tobacco user Quit Date: 16 yrs ago e-Cigarette/Vaping Use: Never Used Second Hand Smoke Exposure: No service: No Current occupational status: disabled Cognitive needs: No Hearing needs: No Vision needs: Yes Meds Allergies Allergy/AdvReac Type Severity Reaction Status Date / Time seafood Allergy Unknown Unknown Verified 04/08/24 09:14 lisinopril AdvReac Unknown cough Verified 02/03/24 09:14 Active Medications: Current Medications Acetaminophen (Acetaminophen 325 Mg Tablet) 650 mg PO Q6H PRN PRN Reason: Headache Last Admin: 02/04/24 09:03 Dose: 650 mg Albuterol Sulfate (Albuterol Sulfate (0.083%) 2.5 Mg/3 Ml Vial.Neb) 2.5 mg INHALE RQ6H PRN PRN Reason: shortness of breath or wheezing Albuterol Sulfate (Albuterol Sulfate 90 Mcg 8 Gm Inhaler) 2 puff INHALE RQID [facility] Last Admin: 02/04/24 10:59 Dose: Not Given Clonazepam (Clonazepam 1 Mg Tablet) 1 mg PO DAILY@0900 [facility] Last Admin: 02/04/24 08:32 Dose: 1 mg Clonazepam (Clonazepam 1 Mg Tablet) 2 mg PO BEDTIME [facility] Escitalopram Oxalate (Escitalopram Oxalate 10 Mg Tablet) 10 mg PO DAILY@0900 [facility] Last Admin: 02/04/24 08:32 Dose: 10 mg Fluticasone Propionate (Fluticasone Propionate 100 Mcg Blst.W.Dev) 1 puff INHALE RBID [facility] Gabapentin (Gabapentin 300 Mg Capsule) 300 mg PO DAILY@0900 [facility] Last Admin: 02/04/24 08:32 Dose: 300 mg Glucose (Glucose Gel 15 Gm Gel..Gram.) 15 gm PO Q15M PRN; Protocol PRN Reason: per Hypoglycemia Standing Ord. Dextrose (D10) 250 mls @ 750 mls/hr IV Q15M PRN; Protocol PRN Reason: per Hypoglycemia Standing Ord. Insulin Human Lispro (Insulin Lispro 100 Unit/Ml 3 Ml Vial) 0 unit SUBCUT QIDACHS [facility]; Protocol Last Admin: 02/04/24 08:04 Dose: Not Given Lidocaine (Lidocaine 4 % Patch Adh..Patch) 1 patch TRANSDERMA DAILY [facility]; Protocol Last Admin: 02/04/24 08:00 Dose: 1 patch Loperamide HCl (Loperamide Hcl 2 Mg Capsule) 2 mg PO Q4H PRN PRN Reason: diarrhae Loratadine (Loratadine 10 Mg Tablet) 10 mg PO DAILY PRN PRN Reason: allergy symptoms Pantoprazole Sodium (Pantoprazole Sodium 40 Mg/10 Ml Vial) 40 mg IVPUSH DAILY [facility] Last Admin: 02/04/24 07:59 Dose: 40 mg Pyridoxine HCl (Pyridoxine Hcl (Vitamin B6) 50 Mg Tablet) 100 mg PO DAILY [facility] Last Admin: 02/04/24 09:03 Dose: 100 mg Sodium Chloride (0.9 % Sodium Chloride Flush 3 Ml Syringe) 3 ml IVFLUSH QSHIFT [facility] Last Admin: 02/04/24 08:03 Dose: 3 ml Zolpidem Tartrate (Zolpidem Tartrate 5 Mg Tablet) 5 mg PO BEDTIME [facility] Home Medications ?Medication ?Instructions ?Recorded ?Confirmed ?Last Taken ?Type citalopram 20 mg tablet 20 mg PO DAILY@0900 08/19/20 02/03/24 02/02/24 History clonazepam 1 mg tablet 1 mg PO DAILY@0900 Anxiety 12/13/20 02/03/24 02/02/24 History zolpidem 10 mg tablet 10 mg PO BEDTIME 04/04/22 02/03/24 Unknown History clonazepam 2 mg tablet 2 mg PO BEDTIME 01/30/24 02/03/24 02/02/24 History cholecalciferol (vitamin D3) 25 25 mcg PO QPM 02/03/24 02/03/24 02/02/24 History mcg (1,000 unit) tablet fluticasone propionate 110 1 puff inhalation BID 02/03/24 02/03/24 02/02/24 History mcg/actuation HFA aerosol inhaler gabapentin 300 mg capsule 300 mg PO DAILY@0902/03/24 02/03/24 02/02/24 History pantoprazole 20 mg tablet,delayed 20 mg PO BID 02/03/24 02/03/24 02/02/24 History release telmisartan 20 mg tablet (Micardis) 20 mg PO DAILY@0900 02/03/24 02/03/24 02/02/24 History tramadol 50 mg tablet 50 mg PO DAILY PRN Pain 02/03/24 02/03/24 Unknown History Exam Height,Weight and Vital Signs: Height 5 ft 6 in Weight 90.718 kg Last Vital Signs Temp 97.0 F 02/04/24 11:30 Pulse 57 02/04/24 11:30 Resp 18 02/04/24 11:30 BP 120/58 L 02/04/24 11:30 Pulse Ox 97 02/04/24 11:30 O2 Del Method Room Air 02/04/24 11:30 Pertinent Lab Results Pertinent Lab Results: Laboratory Tests 02/03/24 02/03/24 02/03/24 09:43 10:29 12:12 WBC 4.7 L RBC 4.84 Hgb 13.7 Hct 40.1 MCV 82.9 MCH 28.3 MCHC 34.2 RDW 11.9 Plt Count 252 MPV 8.5 L Immature Gran % (Auto) 0.2 Neut % (Auto) 47.5 Lymph % (Auto) 39.7 [place] % (Auto) 7.9 Eos % (Auto) 3.8 Baso % (Auto) 0.9 Lymph # (Auto) 1.9 [place] # (Auto) 0.4 Eos # (Auto) 0.2 Baso # (Auto) 0.0 Abs Immat Gran (auto) 0.01 Absolute Neuts (auto) 2.2 Absolute Nucleated RBC 0.000 Nucleated RBC % (auto) 0.0 Sodium 140 Potassium 4.0 Chloride 107 Carbon Dioxide 25 Anion Gap 12 BUN 12 Creatinine 0.80 Estim Creat Clear Calc 88.0 Estimated GFR > 60 POC Glucose Random Glucose 150 H Calcium 9.2 D Total Bilirubin 0.7 AST 18 ALT 32 H Alkaline Phosphatase 56 Total Protein 7.3 Albumin 4.4 Urine Color Yellow Urine Appearance Clear Urine pH 6.0 Ur Specific [employer] >= 1.030 H Urine Protein Negative Urine Glucose (UA) Negative Urine Ketones Negative Urine Blood Negative Urine Nitrite Negative Ur Leukocyte Esterase Negative Stool Occult Blood NEGATIVE Stl C. cayetanensis PCR Stool Rotavirus A PCR Stl Adenov F 40/41 PCR Stool Astrovirus (PCR) Stool Campylobacter PCR Stool Cryptosporidium PCR Stl Sh Tox Pr E STEC PCR Stool E coli O157 PCR Stl Enterotoxigenic E PCR Stool EPEC (PCR) Stool EAEC (PCR) Stl E. histolytica PCR Stool Giardia Lamblia PCR Stl P. shigelloides PCR Stool Salmonella PCR Stool Sapovirus (PCR) Stl Shigella/EIEC PCR St Y.enterocolitica PCR Stool Vibrio (PCR) Stl Vibrio cholerae PCR Stl Norovirus GI/GII PCR C. difficile Tox B Gene Influenza Type A (PCR) NEGATIVE Influenza Type B (PCR) NEGATIVE RSV RNA Qual (PCR) NEGATIVE SARS-CoV-2 RNA (RT-PCR) NEGATIVE 02/03/24 02/03/24 02/03/24 15:43 18:30 20:28 WBC RBC Hgb Hct MCV MCH MCHC RDW Plt Count MPV Immature Gran % (Auto) Neut % (Auto) Lymph % (Auto) [place] % (Auto) Eos % (Auto) Baso % (Auto) Lymph # (Auto) [place] # (Auto) Eos # (Auto) Baso # (Auto) Abs Immat Gran (auto) Absolute Neuts (auto) Absolute Nucleated RBC Nucleated RBC % (auto) Sodium Potassium Chloride Carbon Dioxide Anion Gap BUN Creatinine Estim Creat Clear Calc Estimated GFR POC Glucose 151 H 122 H Random Glucose Calcium Total Bilirubin AST ALT Alkaline Phosphatase Total Protein Albumin Urine Color Urine Appearance Urine pH Ur Specific [employer] Urine Protein Urine Glucose (UA) Urine Ketones Urine Blood Urine Nitrite Ur Leukocyte Esterase Stool Occult Blood Stl C. cayetanensis PCR Not Detected Stool Rotavirus A PCR Not Detected Stl Adenov F 40/41 PCR Not Detected Stool Astrovirus (PCR) Not Detected Stool Campylobacter PCR Not Detected Stool Cryptosporidium PCR Not Detected Stl Sh Tox Pr E STEC PCR Not Detected Stool E coli O157 PCR Not applicable Stl Enterotoxigenic E PCR Not Detected Stool EPEC (PCR) Not Detected Stool EAEC (PCR) Not Detected Stl E. histolytica PCR Not Detected Stool Giardia Lamblia PCR Not Detected Stl P. shigelloides PCR Not Detected Stool Salmonella PCR Not Detected Stool Sapovirus (PCR) Not Detected Stl Shigella/EIEC PCR Not Detected St Y.enterocolitica PCR Not Detected Stool Vibrio (PCR) Not Detected Stl Vibrio cholerae PCR Not Detected Stl Norovirus GI/GII PCR Not Detected C. difficile Tox B Gene NEGATIVE Influenza Type A (PCR) Influenza Type B (PCR) RSV RNA Qual (PCR) SARS-CoV-2 RNA (RT-PCR) 02/04/24 02/04/24 07:34 11:33 WBC RBC Hgb Hct MCV MCH MCHC RDW Plt Count MPV Immature Gran % (Auto) Neut % (Auto) Lymph % (Auto) [place] % (Auto) Eos % (Auto) Baso % (Auto) Lymph # (Auto) [place] # (Auto) Eos # (Auto) Baso # (Auto) Abs Immat Gran (auto) Absolute Neuts (auto) Absolute Nucleated RBC Nucleated RBC % (auto) Sodium Potassium Chloride Carbon Dioxide Anion Gap BUN Creatinine Estim Creat Clear Calc Estimated GFR POC Glucose 145 H 121 H Random Glucose Calcium Total Bilirubin AST ALT Alkaline Phosphatase Total Protein Albumin Urine Color Urine Appearance Urine pH Ur Specific [employer] Urine Protein Urine Glucose (UA) Urine Ketones Urine Blood Urine Nitrite Ur Leukocyte Esterase Stool Occult Blood Stl C. cayetanensis PCR Stool Rotavirus A PCR Stl Adenov F 40/41 PCR Stool Astrovirus (PCR) Stool Campylobacter PCR Stool Cryptosporidium PCR Stl Sh Tox Pr E STEC PCR Stool E coli O157 PCR Stl Enterotoxigenic E PCR Stool EPEC (PCR) Stool EAEC (PCR) Stl E. histolytica PCR Stool Giardia Lamblia PCR Stl P. shigelloides PCR Stool Salmonella PCR Stool Sapovirus (PCR) Stl Shigella/EIEC PCR St Y.enterocolitica PCR Stool Vibrio (PCR) Stl Vibrio cholerae PCR Stl Norovirus GI/GII PCR C. difficile Tox B Gene Influenza Type A (PCR) Influenza Type B (PCR) RSV RNA Qual (PCR) SARS-CoV-2 RNA (RT-PCR) Airway Mallampati Class: III TM Dist: >3cm Neck ROM: Full Loose/Missing/Broken Teeth: Yes Heart: [id number] Lungs: cta b/l Assessment and Plan Assessment Anesthesia Assessment: Anesthesia Plan Discussed Final Anesthetic Review Family History of Problems with Anesthesia: No History of Problems with Anesthesia: No NPO: Yes ASA Class: III Final Preanesthetic Review: No Changes in Pt Med Stat, Meds/Allgs Chart Reviewed, Consent Obtained/Reviewed and Anes Risks/Benef Reviewed Patient Risk: Intermediate Procedure Risk: Intermediate Assessment/Block/Sedation in SS: Assess/Block/Sedation-SS Anesthetic Plan Anesthetic Plan: MAC: Disposition: Standard PACU
--- NOTE | 2024-02-04 12:11 | MHC.SHP ---
Pre-Procedural Eval Section A - 24 Hr Update-Section A only Date of Service: 02/04/24 The patient is an INPATIENT: Yes The patient has been examined within 24 hours of the surgical procedure. The History & Physical has been completed within 30 days and I have reviewed it.: Yes Section B - Complete if H&P > 30 days Chief Complaint: abd pain/diarrhea Allergies: Allergies Allergy/AdvReac Type Severity Reaction Status Date / Time seafood Allergy Unknown Unknown Verified 02/03/24 09:14 lisinopril AdvReac Unknown cough Verified 02/03/24 09:14 Plan Diagnosis/Plan: Unchanged I have reviewed the history and physical and performed a pertinent physical examination on my patient. No changes have occurred unless specified. Time Spent With Patient Time: Total time managing care of this patient today ____ minutes.
--- NOTE | 2024-02-04 12:11 | W.PM.OPN ---
Operative Note Operative Note Date of Service: 02/04/24 Narrative: Procedure Description: EGD Indication: gastritis, epigastric pain, nausea Anesthesia: MAC FLEXIBLE TRANSORAL UPPER GASTROINTESTINAL ENDOSCOPY UPPER ENDOSCOPY Consent: Indications for the procedure and potential complications of bleeding, perforation, reaction to medications and missed diagnosis were discussed with the patient and informed consent was obtained. Instrument: Olympus GIF H 190 J mid size upper endoscope Monitoring: Vital signs and clinical assessment, continuous EKG monitoring, Pulse oximetry, Carbon Dioxide monitoring and blood pressure monitoring were done throughout the procedure. Procedure: The patient was placed in the left lateral decubitis position and pre-procedure medications were administered and a bite block was placed. The endoscope was inserted into the mouth and advanced under direct vision to the third part of duodenum. A careful inspection was made as the upper endoscope was withdrawn including a retroflexed examination of the proximal stomach; Findings and interventions are described below. Findings: Larynx:normal Esophagus: GE junction at 37 cm, diaphragm hiatus at 37 cm, normal Stomach: mild patchy erythema . Biopsies were obtained. Grade 2 flap valve on retroflexed examination of the cardia. Duodenum: Normal bulb and descending duodenum, bx taken Intervention: Biopsies as noted above, Impression/Findings: mild gastritis PLAN: cont with PPI add carafate QID if ongoing sx then consider US duplex to r/o ischemia, and if neg then head scan to r/o central cause of sx
--- NOTE | 2024-02-04 13:58 | HO.PM.IMPN ---
Subjective Subjective Date of Service: 02/04/24 Interval History: diarrhae ,epigastric discomfort Review of Systems epigastric discomfort-seems improivng diarrhae seems similar Physical Exam Vital Signs: Vital Signs: Last Vital Signs Temp 97.2 F 02/04/24 13:31 Pulse 52 02/04/24 13:45 Resp 16 02/04/24 13:45 BP 154/76 H 02/04/24 13:45 Pulse Ox 97 02/04/24 13:45 O2 Del Method Room Air 02/04/24 13:45 BMI result Body Mass Index 32.3 Appearance: Alert.? Oriented X3. cvs: rrr, [id number] , no murmur res: clear to auscultation ,no rhonchii or wheezing abd: no rebound or guarding ,mild epigastric pain, bs present. ext pulses present , no cyanosis . neuro: axo3 , nonfocal. Objective Data Active Medications Acetaminophen (Acetaminophen 325 Mg Tablet) 650 mg PO Q6H PRN PRN Reason: Headache Last Admin: 02/04/24 09:03 Dose: 650 mg Documented By: KELLY Acetaminophen (Acetaminophen 325 Mg Tablet) 650 mg PO ONCE PRN PRN Reason: Pain, Mild (Pain Scale 1-3) Stop: 02/04/24 18:00 Albuterol Sulfate (Albuterol Sulfate (0.083%) 2.5 Mg/3 Ml Vial.Neb) 2.5 mg INHALE RQ6H PRN PRN Reason: shortness of breath or wheezing Albuterol Sulfate (Albuterol Sulfate 90 Mcg 8 Gm Inhaler) 2 puff INHALE ID [facility] Last Admin: 02/04/24 10:59 Dose: Not Given Documented By: BETHANY Non-Admin Reason: Off Unit: Surgery Clonazepam (Clonazepam 1 Mg Tablet) 1 mg PO DAILY@0900 [facility] Last Admin: 02/04/24 08:32 Dose: 1 mg Documented By: KELLY Clonazepam (Clonazepam 1 Mg Tablet) 2 mg PO BEDTIME [facility] Escitalopram Oxalate (Escitalopram Oxalate 10 Mg Tablet) 10 mg PO DAILY@0900 [facility] Last Admin: 02/04/24 08:32 Dose: 10 mg Documented By: KELLY Fluticasone Propionate (Fluticasone Propionate 100 Mcg Blst.W.Dev) 1 puff INHALE ID [facility] Gabapentin (Gabapentin 300 Mg Capsule) 300 mg PO DAILY@0900 [facility] Last Admin: 02/04/24 08:32 Dose: 300 mg Documented By: KELLY Glucose (Glucose Gel 15 Gm Gel..Gram.) 15 gm PO Q15M PRN; Protocol PRN Reason: per Hypoglycemia Standing Ord. Dextrose (D10) 250 mls @ 750 mls/hr IV Q15M PRN; Protocol PRN Reason: per Hypoglycemia Standing Ord. Insulin Human Lispro (Insulin Lispro 100 Unit/Ml 3 Ml Vial) 0 unit SUBCUT [facility]IDACOX [facility]; Protocol Last Admin: 02/04/24 08:04 Dose: Not Given Documented By: KELLY Non-Admin Reason: NPO Lidocaine (Lidocaine 4 % Patch Adh..Patch) 1 patch TRANSDERMA DAILY [facility]; Protocol Last Admin: 02/04/24 08:00 Dose: 1 patch Documented By: KELLY Loperamide HCl (Loperamide Hcl 2 Mg Capsule) 2 mg PO Q4H PRN PRN Reason: diarrhae Loratadine (Loratadine 10 Mg Tablet) 10 mg PO DAILY PRN PRN Reason: allergy symptoms Ondansetron HCl (Ondansetron Hcl 4 Mg/2 Ml Vial) 4 mg IVPUSH ONCE PRN PRN Reason: Nausea and Vomiting Stop: 02/04/24 18:00 Pantoprazole Sodium (Pantoprazole Sodium 40 Mg/10 Ml Vial) 40 mg IVPUSH DAILY [facility] Last Admin: 02/04/24 07:59 Dose: 40 mg Documented By: KELLY Pyridoxine HCl (Pyridoxine Hcl (Vitamin B6) 50 Mg Tablet) 100 mg PO DAILY [facility] Last Admin: 02/04/24 09:03 Dose: 100 mg Documented By: KELLY Sodium Chloride (0.9 % Sodium Chloride Flush 3 Ml Syringe) [facility] Last Admin: 02/04/24 08:03 Dose: 3 ml Documented By: KELLY Sucralfate (Sucralfate 1 Gm Tablet) 1 gm PO QIDAS [facility] Zolpidem Tartrate (Zolpidem Tartrate 5 Mg Tablet) 5 mg PO BEDTIME [facility] Labs 02/03/24 09:43 02/03/24 09:43 Labs: Laboratory Results - last 24 hr 02/03/24 02/03/24 02/03/24 15:43 18:30 20:28 POC Glucose 151 H 122 H Stl C. cayetanensis PCR Not Detected Stool Rotavirus A PCR Not Detected Stl Adenov F 40/41 PCR Not Detected Stool Astrovirus (PCR) Not Detected Stool Campylobacter PCR Not Detected Stool Cryptosporidium PCR Not Detected Stl Sh Tox Pr E STEC PCR Not Detected Stool E coli O157 PCR Not applicable Stl Enterotoxigenic E PCR Not Detected Stool EPEC (PCR) Not Detected Stool EAEC (PCR) Not Detected Stl E. histolytica PCR Not Detected Stool Giardia Lamblia PCR Not Detected Stl P. shigelloides PCR Not Detected Stool Salmonella PCR Not Detected Stool Sapovirus (PCR) Not Detected Stl Shigella/EIEC PCR Not Detected St Y.enterocolitica PCR Not Detected Stool Vibrio (PCR) Not Detected Stl Vibrio cholerae PCR Not Detected Stl Norovirus GI/GII PCR Not Detected C. difficile Tox B Gene NEGATIVE 02/04/24 02/04/24 07:34 11:33 POC Glucose 145 H 121 H Stl C. cayetanensis PCR Stool Rotavirus A PCR Stl Adenov F 40/41 PCR Stool Astrovirus (PCR) Stool Campylobacter PCR Stool Cryptosporidium PCR Stl Sh Tox Pr E STEC PCR Stool E coli O157 PCR Stl Enterotoxigenic E PCR Stool EPEC (PCR) Stool EAEC (PCR) Stl E. histolytica PCR Stool Giardia Lamblia PCR Stl P. shigelloides PCR Stool Salmonella PCR Stool Sapovirus (PCR) Stl Shigella/EIEC PCR St Y.enterocolitica PCR Stool Vibrio (PCR) Stl Vibrio cholerae PCR Stl Norovirus GI/GII PCR C. difficile Tox B Gene Assessment and Plan (1) Abdominal pain: Status: Acute (2) Diarrhea: Status: Acute Plan 58 y/o F with pmhx hemorrhoid, hypertension, diabetes type 2, migraine headache, thyroid disease, nephrolithiasis, history of diarrhea and constipation and depression and anxiety, also has history of recurrent C diff infection in the past-come with cystic pain/nausea , diarrhea Epigastric discomfort, worsened diarrhea C diff/GI panel negative Fecal occult blood negative Black stool probably related to Pepto-Bismol, fecal occult blood negative Ppi, clear liquid diet if tolerates, IV fluids, GI evaluation noted -will add carafate ,moniter today is does not improve may need egd . Asthma: No shortness of breath stable, mild intermittent asthma. Will continue home medications once medical reconciliation done Hypertension: Blood pressure slightly elevated, will start blood pressure medications once medical reconciliation done Diabetes type 2: Fingerstick with sliding scale coverage Depression anxiety/thyroid disease will start home medications once medical reconciliation done DVT prophylaxis: scd Patient will benefit from overnight observation for possible viral gastroenteritis versus gastritis- since can not tolerate diet, need IV fluid, need GI evaluation for possible EGD if needed. Quality Stroke Does the patient have a stroke diagnosis?: No VTE Prior VTE?: No VTE Risk Level:: Medical - moderate - high VTE Device Contraindication: N/A - Device Ordered VTE Drug Contraindication: N/A - Med Ordered
[2024-02-04 14:05] LABS: C Reactive Protein 0.86 mg/dL (< or = 0.50)
[2024-02-04] MEDS: Sucralfate 1 GM TABLET PO ×2 (16:29→20:53)
[2024-02-04 16:33] LABS: Glucose, Whole Blood 111 mg/dL (60-115)
[2024-02-04 19:57] LABS: Glucose, Whole Blood 108 mg/dL (60-115)
[2024-02-04] MEDS: Fluticasone Propionate 100 MCG BLST.W.DEV 1 PUFF INHALE (20:40)
[2024-02-04] MEDS: Albuterol Sulfate 90 MCG 8 GM INHALER 2 PUFF INHALE (20:40)
[2024-02-04] MEDS: clonazePAM 1 MG TABLET 2 MG PO (20:53)
[2024-02-04] MEDS: Zolpidem Tartrate 5 MG TABLET PO (20:53)
[2024-02-05 02:48] VITALS: BP 136/65; PULSE 53; RESP 16; TEMP 36.6; O2SAT 99
[2024-02-05 07:56] LABS: Glucose, Whole Blood 125 mg/dL (60-115)
[2024-02-05 08:00] VITALS: BP 132/61; PULSE 59; RESP 18; TEMP 36.1; O2SAT 95
[2024-02-05] MEDS: Gabapentin 300 MG CAPSULE PO (08:26)
[2024-02-05] MEDS: Escitalopram Oxalate 10 MG TABLET PO (08:26)
[2024-02-05] MEDS: clonazePAM 1 MG TABLET PO (08:26)
[2024-02-05] MEDS: Pyridoxine HCl (Vitamin B6) 50 MG TABLET 100 MG PO (08:26)
[2024-02-05] MEDS: Pantoprazole Sodium 40 MG/10 ML VIAL IVPUSH (08:26)
[2024-02-05] MEDS: 0.9 % Sodium Chloride Flush 3 ML SYRINGE IVFLUSH (08:26)
[2024-02-05] MEDS: Lidocaine 4 % Patch ADH..PATCH 1 PATCH TRANSDERMA (08:26)
[2024-02-05] MEDS: Sucralfate 1 GM TABLET PO ×2 (08:26→11:28)
[2024-02-05 11:05] VITALS: O2SAT 95
[2024-02-05] MEDS: Albuterol Sulfate 90 MCG 8 GM INHALER 2 PUFF INHALE (11:10)
[2024-02-05 11:11] VITALS: PULSE 59; RESP 18; O2SAT 97
[2024-02-05 11:31] LABS: Glucose, Whole Blood 205 mg/dL (60-115)
[2024-02-05] MEDS: Insulin Lispro 100 UNIT/ML 3 ML VIAL SUBCUT (11:31)
--- NOTE | 2024-02-05 13:26 | P.DS_ITS ---
DS: Providers Provider Date of Service: 02/05/24 Date of admission: 02/03/24 17:46 Primary care physician: Silvino Andujar PA-C Consults: 02/04/24 08:18 Consult to Gastroenterology Stat Consulting Provider: Shabnam Hitchcock Reason for consultation: GI bleed, hospitalist request. 02/04/24 08:26 Consult to Gastroenterology Routine Consulting Provider: Shabnam Hitchcock Reason for consultation: persistent epigastric discomfort/persistent diarrhae Has provider been notified: No DS: Diagnosis Discharge Diagnosis (1) Abdominal pain: Status: Acute (2) Diarrhea: Status: Acute DS: Summary Hospital Course Hospital Course: from initial hpi: 58 y/o F with pmhx hemorrhoid, hypertension, diabetes type 2, migraine headache, thyroid disease, nephrolithiasis, history of diarrhea and constipation and depression and anxiety, also has history of recurrent C diff infection in the past-patient comes to the hospital with nausea, diarrhea, abdominal pain, dark stool, ongoing for the past 9 days. She denies any using outside food, any sick contacts or antibiotics recently or travel. Patient reports associated chills however no fevers. She reports she was seen at urgent Care, she was given Zofran, did not help with symptoms and also tried some Pepto-Bismol 2-3 days ago with little to no relief. Patient has epigastric discomfort mostly with the food, also has diarrhea she says that at baseline she has some diarrhea but now is getting somewhat worse. Denies any other abdominal pain. She denies any vomiting, denies any francisco j blood in stool. Patient says that she is unable to take p.o. also because every time she eats it brings pain and diarrhea back. Patient denies chest pain, shortness of breath, headache, vision changes, dizziness, weakness, recent sick contacts. hospital course: Patient was admitted for epigastric discomfort and diarrhea. Was treated with PPI. Underwent endoscopy which showed gastritis recommendations were for continued PPI, discontinuing NSAIDs and starting on Carafate. Biopsies were taken and should be followed up outpatient. Patient was able to tolerate solid diet. She will be discharged home. For mild intermittent asthma she remained stable. For hypertension she was continued on Arb. For diabetes was continued on insulin sliding scale. For incidentally noted persistent vaginal mass recommend backup sawyer eval as outpatient. Patient is feeling better will be discharged home. Time Attestation Discharge Coordination Time (in mins): 35 Quality: Safe Use of Opioids Does Pt have an Active Cancer Diagnosis on the Problem List?: No Quality: Stroke Does the patient have a stroke diagnosis?: No Physical Exam Vital Signs: Vital Signs: Last Vital Signs Temp 96.9 F 02/05/24 08:00 Pulse 59 02/05/24 11:11 Resp 18 02/05/24 11:11 BP 132/61 02/05/24 08:00 Pulse Ox 95 02/05/24 11:05 O2 Del Method Room Air 02/05/24 11:05 BMI result Body Mass Index 33.4 Appearance: Alert.? Oriented X3. cvs: rrr, [id number] , no murmur res: clear to auscultation ,no rhonchii or wheezing abd: no rebound or guarding ,mild epigastric pain, bs present. ext pulses present , no cyanosis . neuro: axo3 , nonfocal. DS: Data Data Completed and Pending Pending studies at discharge: Pending at discharge 02/04/24 12:55 Surgical [PTH] Routine Labs on day of discharge: Laboratory Results - last 24 hr 02/03/24 02/04/24 02/04/24 09:43 16:23 19:53 POC Glucose 111 108 C-Reactive Protein 0.86 H 02/05/24 02/05/24 07:22 11:21 POC Glucose 125 H 205 H C-Reactive Protein Discharge Plan Discharge Anticipated Discharge Date/Time: 02/05/24 13:22 Patient Disposition: Home, Self-Care Discharge Diagnosis: gastritis Referrals: Silvino Andujar PA-C [Primary Care Provider] - 1 Week Shabnam Hitchcock MD [Physician] - 1 Week Discharge Medications: New sucralfate 1 gram Tablet 1 g PO QIDACHS Qty: 480 0RF Continued cetirizine 10 mg tablet 10 mg PO DAILY PRN (Reason: allergy symptoms) 90 Days Qty: 90 2RF (DME) FreeStyle Precision Steffen Strips Strip See Rx Instructions .ROUTE .MEDSUPPLY Qty: 50 6RF Rx Instructions: As directed once daily (DME) blood-glucose meter [FreeStyle Precision Steffen Meter] Misc See Rx Instructions .Route Qty: 1 0RF Rx Instructions: As directed tramadol 50 mg tablet 50 mg PO DAILY PRN (Reason: Pain) telmisartan [Micardis] 20 mg tablet 20 mg PO DAILY@0900 cholecalciferol (vitamin D3) 25 mcg (1,000 unit) tablet 25 mcg PO QPM pantoprazole 20 mg tablet,delayed release (DR/EC) 20 mg PO BID gabapentin 300 mg Capsule 300 mg PO DAILY@0900 fluticasone propionate 110 mcg/actuation Hfa Aerosol Inhaler 1 puff INHALATION BID acetaminophen [Tylenol Extra Strength] 500 mg tablet 1,000 mg PO QID PRN (Reason: fever or pain) Qty: 14 0RF albuterol sulfate 90 mcg/actuation HFA aerosol inhaler 2 puff inhalation QID 30 Days Qty: 8.5 3RF albuterol sulfate 2.5 mg /3 mL (0.083 %) solution for nebulization 2.5 mg inhalation Q6H PRN (Reason: shortness of breath or wheezing) 30 Days Q ty: 180 2RF fenofibrate nanocrystallized 48 mg tablet 48 mg PO DAILY Qty: 90 2RF famotidine [Pepcid] 40 mg tablet 40 mg PO BEDTIME 90 Days Qty: 90 2RF metformin 1,000 mg tablet 1,000 mg PO DAILY 90 Days Qty: 90 2RF Hold Instructions: Doctor's Order pyridoxine (vitamin B6) 50 mg tablet 100 mg PO DAILY 90 Days Qty: 180 2RF atorvastatin 40 mg tablet 40 mg PO BEDTIME Qty: 90 2RF clonazepam 2 mg tablet 2 mg PO BEDTIME clonazepam 1 mg tablet 1 mg PO DAILY@0900 Patient Comments: 1 tab in the morning and 2 tablets at bedtime zolpidem 10 mg tablet 10 mg PO BEDTIME citalopram 20 mg tablet 20 mg PO DAILY@0900 Discontinued ibuprofen 800 mg tablet 800 mg PO Q8H PRN (Reason: pain) 15 Days Qty: 45 2RF Discharge Orders: Discharge Order (Routine); Ordered 02/05/24 Ordered By: Solomon Harris Diet: Advance to usual diet Activity on Discharge: As tolerated Stand Alone Forms: Patient Portal Discharge page Print Language: Surinamese Care Plan Goals: recovery Health Concerns: gastritis Plan of Treatment: follow up GI for path results, conitnue ppi, stop nsaids, start carafate follow up GUEST EXPERIENCE SPECIALIST regarding persistent 3.4 x 2.3 x 2.5 cm lobulated mass in the low anterior pelvis Assessment: see above Patient Instructions: Sucralfate (By mouth), Gastritis (GEN)
--- NOTE | 2024-02-05 13:39 | MHC.CM.PN ---
pt dc home self care
== END 2024-02-05 14:22 | disposition home or self-care (01) ==
LOC: HO.ED 15:28 → HO.EDOVER 02-04 08:25 → HO.S3 02-04 15:25
PROVIDERS: Internal Medicine Gastroenterology; Physician Assistant; Admitting Provider Internal Medicine; Emergency Provider Emergency Medicine; PCP Physician Assistant; Visit Provider Internal Medicine
PROC: 0DJ08ZZ Inspection of Upper Intestinal Tract, Via Natural or Artificial Opening Endoscopic (ICD-10-PCS; CPT 43235; principal; 2024-02-04 15:30)
DX: R10.13 Epigastric pain (principal); K29.70 Gastritis, unspecified, without bleeding; E07.9 Disorder of thyroid, unspecified; J45.909 Unspecified asthma, uncomplicated; F32.A Depression, unspecified; R19.7 Diarrhea, unspecified; R11.0 Nausea; K92.1 Melena; E11.9 Type 2 diabetes mellitus without complications; I10 Essential (primary) hypertension; Z11.52 Encounter for screening for COVID-19; Z20.828 Contact with and (suspected) exposure to other viral communicable diseases
CPT/HCPCS: 43239; 0241U; 36415; 74177; 80053; 81003; 82272; 82947; 85025; 86140; 87493; 87507; 88305; 88313; 88342; 94640; 96361; 96374; 96375; 96376; 99221; 99285; C9113; J1596; J1885; J2704; Q9967

== ENCOUNTER → 2024-02-03 17:46 | Outpatient (BNV) | payer OTHER, SELFPAY | PROVIDERS: Admitting Provider Internal Medicine; Emergency Provider Emergency Medicine; PCP Physician Assistant; Visit Provider Internal Medicine | DX: R10.13 Epigastric pain (principal); R19.7 Diarrhea, unspecified | CPT/HCPCS: 99222; 99231; 99239 ==

== ENCOUNTER → 2024-02-03 17:46 | Outpatient (BNV) | payer OTHER, SELFPAY | PROVIDERS: Admitting Provider Internal Medicine; Emergency Provider Emergency Medicine; PCP Physician Assistant; Visit Provider Internal Medicine Gastroenterology | DX: R10.13 Epigastric pain (principal); R11.0 Nausea; K29.70 Gastritis, unspecified, without bleeding | CPT/HCPCS: 43239; 99222 ==

== ENCOUNTER 2024-02-13 11:08 | Outpatient (AMB) | payer OTHER, SELFPAY ==
--- NOTE | 2024-02-13 11:11 | MHC.OFFVIS ---
Intake Vital Signs 02/13/24 11:15 Height 5 ft 6 in Weight 197 lb BMI 31.8 BP 120/64 Blood Pressure Location Lt brachial Position Sitting Pulse 80 Intake Visit Reasons: ED follow up Intake Note: Patient ED follow up Patient cc: abdominal pain/bloating, acid reflex with burning sensation, and between diarrhea and constipation. Band Maker Required: No Accompanied by: Self / Same As Patient Allergies seafood Allergy (Unknown, Verified 02/13/24 11:10) Unknown lisinopril Adverse Reaction (Unknown, Verified 02/13/24 11:10) cough Medication List - Last Reconciled 02/13/24 by Shabnam Hitchcock MD acetaminophen (Tylenol Extra Strength) 1,000 mg (2 x 500 mg) PO QID PRN albuterol sulfate 90 mcg/actuation 2 puffs inhalation QID 30 days albuterol sulfate 2.5 mg (3 mL) inhalation Q6H PRN 30 days atorvastatin 40 mg PO BEDTIME blood sugar diagnostic (FreeStyle Precision Steffen Strips) As directed once daily blood-glucose meter (FreeStyle Precision Steffen Meter) As directed cetirizine 10 mg PO DAILY PRN 90 days cholecalciferol (vitamin D3) 25 mcg PO QPM citalopram 20 mg PO DAILY@0900 clonazepam 2 mg PO BEDTIME clonazepam 1 mg PO DAILY@0900 famotidine (Pepcid) 40 mg PO BEDTIME 90 days fenofibrate nanocrystallized 48 mg PO DAILY fluticasone propionate 110 mcg/actuation 1 puff inhalation BID gabapentin 300 mg PO DAILY@0900 metformin 1,000 mg PO DAILY 90 days pantoprazole 20 mg PO BID pyridoxine (vitamin B6) 100 mg (2 x 50 mg) PO DAILY 90 days sucralfate 1 g PO QIDACHS telmisartan (Micardis) 20 mg PO DAILY@0900 tramadol 50 mg PO DAILY PRN zolpidem 10 mg PO BEDTIME HPI ED follow up HPI Details GI CLINIC VISIT FOR THIS 58-YEAR-OLD FEMALE FOR RECTAL PAIN. Pt is seen after recent hospitalization at [facility] for abd pain. PT IS FOLLOWED IN GI FOR DYSPHAGIA AND EPIGASTRIC PAIN. PATIENT IS STATUS POST LAP BAND SURGERY IN 2010 AND LAP BAND WAS REMOVED IN 2015. Pt was seen by Dr Parry for anal pain and treated with topical NTG followed by Nifedipine Pelvic CT scan was negative for perianal abscess. ?CHRONIC ILLNESSES:?hypercholesterolemia, depression, anxiety, asthma, hemorrhoids, hypertention diabetes type II, nephrolithiasis ? LABS IN [facility]:?05/16 Reviewed. ? Stool antigen for C Diff was positive ON AND February and negative on 10/08/19 ?IMAGING STUDIES: 02/04/[address] SCAN SHOWED: Lobulated mass anterior to the vaginal cuff is unchanged relative to comparison studies. It measures approximately 3.4 x 2.3 x 2.5 cm. Gastric wall thickening is suspected. Consider correlation with direct visualization. Hepatomegaly and hepatic steatosis. 07/2021 GASTRIC EMPTYING STUDY SHOWED: No abnormal retention of solid food is noted. Gastric emptying is more rapid than normal, a finding of uncertain clinical significance. ?09/13/[address] SCAN SHOWED: ? Mild right hydroureteronephrosis. 0.5 cm calculus at the right ureterovesicular junction. ? Hepatomegaly with hepatic steatosis. 07/15 Barium swallow showed:? Delay in passage of a 13 mm barium tablet across the gastroesophageal junction, raising the possibility of underlying stricturing.? No delay in liquid barium passage across the gastroesophageal junction. ENDOSCOPIC STUDIES: ? 02/04/24 EGD SHOWED: Esophagus: GE junction at 37 cm, diaphragm hiatus at 37 cm, normal Stomach: mild patchy erythema . Biopsies were obtained. Grade 2 flap valve on retroflexed examination of the cardia. Duodenum: Normal bulb and descending duodenum, bx taken Impression/Findings: mild gastritis PLAN: cont with PPI add carafate QID if ongoing sx then consider US duplex to r/o ischemia, and if neg then head scan to r/o central cause of sx BIOPSIES SHOWED: A. Duodenum, biopsy: Chronic inactive duodenitis. B. Stomach, biopsy: Oxyntic mucosa within normal limits; no Helicobacter organisms 04/2023 EGD AND COLONOSCOPY SHOWED: ESOPHAGUS: Tortuous esophagus with increased tertiary contractions without stricture or ring - biopsies obtained during past EGD were negative for EOE.??GE junction at 36 cms.? Minimal focal esophagitis at GE junction and no Garcia's. Empiric balloon dilation was performed with a 20 mm (60 F) CRE balloon x 60 sec STOMACH: Mild gastritis DUODENUM: A small benign appearing polyp was biopsied in the duodenal bulb. Biopsied obtained from 3rd part of the duodenum to check for celiac sprue Colonoscopy Findings: One polyp was biopsied - biopsies showed lymphoid aggregates. Random biopsies obtained from the right and left colon to check for microscopic colitis Moderate diverticulosis seen in the sigmoid colon Small hemorrhoids on retroflexed exam. Colon aspirate was sent for C Diff toxin Plan: Repeat Colonoscopy interval based on path results - in 3-5 years if polyps are adenomatous and 10 years if polyps are hyperplastic. 12/16/20 EGD SHOWED:ESOPHAGUS: Tortuous esophagus with increased tertiary contractions without stricture or ring - biopsies were obtained from proximal esophagus to check for EOE.GE junction at 36 cms.? Prominent folds at GE junction - biopsied.? No esophagitis or Garcia Balloon dilation was performed with 19 and 20mm CRE balloon x 60 seconds at each level STOMACH: Gastritis with a few superficial antral erosions likely due to NSAIDS DUODENUM: Normal - biopsied to check for celiac sprue. Plan:? Patient has an appointment on 01/19/21 in the GI Clinic with Shabnam Hitchcock M.D. If symptoms persist, further evaluation with a chest CT scan will be scheduled Above findings were reviewed with the patient and Gastritis handout was given in the discharge area BIOPSIES SHOW: A.? Small bowel, biopsy:? Small bowel mucosa within normal limits; preserved villous architecture and no increased intraepithelial lymphocytes. B. Stomach, antrum, biopsy:? Gastric antral mucosa with mild chronic inactive gastritis; negative for Helicobacter pylori, intestinal metaplasia and dysplasia. C. Esophagus, proximal, biopsy:? Squamous mucosa within normal limits; negative for inflammation (including eosinophils), fungal organisms, intestinal metaplasia and dysplasia. D. Gastroesophageal junction, biopsy:? Gastric cardia-type mucosa with mild chronic inactive inflammation; no squamous mucosa seen; negative for intestinal metaplasia or dysplasia. 07/2018 EGD WITH ESOPHAGEAL BALLOON DILATION WAS PERFORMED BY DR. JENKINS:? 1. Distal esophageal ring (question of muscular).? 2. Superficial gastritis. BIOPSIES SHOWED: Fragments of unremarkable fundic-type gastric mucosa. The Helicobacter pylori immunohistochemical stain is negative. ?? ? IMPEDENCE TESTIN HR AMBULATORY pH-IMPEDENCE TESTING WITH HIGH RESOLUTION ESOPHAGEAL MANOMETRY: ? Normal UES function, Normal LES length ? Normal LES/EGJ resting pressure, Normal LES relaxation ? No hiatal hernia was detected manometrically ? Wayan Classification 3.0: Normal Esophageal contractility. ?TODAY'S VISIT Patient cc: abdominal pain/bloating, acid reflex with burning sensation, and between diarrhea and constipation. Pt seen by Web Production Designer at [facility] [place] and scheduled for a Pelvic US on 02/25/24 - ? post surgical changes related to past hysterectomy EGD and bx results reviewed Pt denies any change in abdominal pain. Taking Sucralfate Abd pain was better while she was in the hospital and not taking the metformin Thinks abd pain may be related to metformin Has been taking Metformin for the past ? 4 yrs (since dxed with DM) Woke up with burning pain last night. Pain is associated with intake of hard and spicy foods (meats, rice, greasy foods) PAST VISITS: Patient continue with abdominal bloating, acid reflex with esophagus irritation, and between diarrhea and constipation. Complains of bloating and esophageal discomfort. Intermittent dysphagia associated with intake of rice and meats Patient denies significant improvement in dysphagia after past EGD and dilation. She complains of diarrhea alternating with constipation - recent C diff toxin was negative. Takes tramadol and ibuprofen infrequently for severe pain. EGD and colon results reviewed with the patient. Notes upper abdominal discomfort. Feels food is moving slowly in the lower esophagus. Had choking with a piece of meat Gives a hx of colon polyps in the past Diarrhea is better - taking probiotics Niece has stage 4 lung cancer and rapidly declining and on being placed under hospice care. Patient cc: Nauseas, abdominal pain/bloating, and diarrhea on and off, also she is been having some swallowing problems. Diarrhea comes and goes. Notes post prandial nausea and sometimes diarrhea. Stool is frothy and floats on the toilet water. She also complains of bad breath - which is new (states dental check up was normal) Notes diarrhea with everything she eats. Intermittent abdominal bloating When she eats she feels she has eaten a ton of food. Has symptoms with solid food and not with soups. Denies nausea or vomiting. SANDOVAL x 4 days - COVID test was negative. Notes cramps in the abdominal wall when she moves from side to side - likely musculoskeletal. Bad breath has improved with medications. Has 2 BMs a day - depending on her diet. Last episode of diarrhea started after she had antibiotics for sinus infection Recurrent diarrhea with abd pain x 2 weeks Notes bad breath Notes sharp and throbbing pain in the rectum after having multiple episodes of diarrhea Chills at night which she attributes to menopause. Has been eating small portions due to decreased appetite Wt loss to 200 lbs (208 lbs in 11/2020) [facility] Medical History History of panic attacks Asthma Anal fissure Anal pain Pulmonary nodules Hx of renal calculi Flu-like symptoms Spondylosis of lumbar spine Fibromyalgia Dyslipidemia Obesity, Class I, BMI 30-34.9 Nephrolithiasis Recurrent Clostridioides difficile infection Hx of thyroid nodule Back pain Arthritis Depression Anxiety Type 2 diabetes mellitus HLD (hyperlipidemia) GERD (gastroesophageal reflux disease) HTN (hypertension) Surgical History History of esophagogastroduodenoscopy (EGD) Hx of cosmetic surgery Hx of tonsillectomy Hx of section Hx of lithotripsy Hx of endoscopy Hx of colonoscopy (~11/2016) S/P anal fissurectomy H/O hemorrhoidectomy Hx laparoscopic cholecystectomy S/P left oophorectomy H/O partial thyroidectomy (~2016) History of removal of laparoscopic gastric banding device (~2015) History of abdominoplasty History of colonoscopy History of laparoscopic adjustable gastric banding (~2010) History of bilateral breast reduction surgery (~2008) History of hysterectomy Family History Father Diabetes Hypertension Depression Mother Lung cancer Diabetes Mental health disorder Brother HIV (human immunodeficiency virus infection) Depression Diabetes Sister Hypertension Diabetes Mental health disorder Daughter Mental health disorder Son Mental health disorder Social History Household Members: Children Housing: House Do you presently have visiting nurse or other home services: Yes Alcohol intake: current Alcohol intake frequency: holidays/special occasions only Patient Tobacco Use Status: Former Tobacco user Quit Date: 16 yrs ago e-Cigarette/Vaping Use: Never Used Second Hand Smoke Exposure: No Substance Use Type: Marijuana service: No Current occupational status: disabled Cognitive needs: No Hearing needs: No Vision needs: Yes Review of Systems Const All systems reviewed & are unremarkable except as noted in HPI and below Physical Exam Vital Signs: Last Vital Signs Pulse 80 02/13/24 11:15 BP 120/64 02/13/24 11:15 BMI result Body Mass Index 31.8 Const General: no acute distress Nutritional Appearance: obese Orientation/consciousness: patient oriented x3 Limitations: no limitations HEENT Head: Yes normal to inspection Ears: hearing grossly normal bilaterally Eyes Sclerae: sclerae normal Pupils: Equal, round and reactive pupils present Neck Neck: Yes normal visual inspection Chest Chest palpation & inspection: normal inspection of the chest Resp Effort & Inspection: normal respiratory effort Auscultation: clear to auscultation bilaterally Cardio Palpation: normal PMI Rate: regular rate Rhythm: regular rhythm Heart sounds: S1 normal heart sound present, S2 normal heart sound present and no murmurs GI Palpation (GI): Soft to palpation, nontender and No hepatosplenomegaly present Auscultation: normal bowel sounds Rectal Exam - Female: deferred Skin General skin exam: no rashes or lesions noted Neuro General: patient oriented x3, gait normal and moves all extremities Cranial nerves: Yes Equal, round and reactive pupils present Psych Appearance: grossly normal Mental Status: mental status grossly normal Assessment & Plan Assessment & Plan (1) Epigastric pain: Code(s): R10.13 - Epigastric pain (2) Schatzki's ring: Code(s): K22.2 - Esophageal obstruction (3) Colon cancer screening: Comment: 11/2016 a diminutive polyp was removed during colonoscopy by Dr. Jenkins. Repeat colonoscopy was advised in 10 years. Code(s): Z12.11 - Encounter for screening for malignant neoplasm of colon (4) Schatzki's ring: Code(s): K22.2 - Esophageal obstruction (5) Abdominal bloating: Code(s): R14.0 - Abdominal distension (gaseous) (6) Dysphagia, pharyngoesophageal phase: Code(s): R13.14 - Dysphagia, pharyngoesophageal phase (7) Diarrhea: Code(s): R19.7 - Diarrhea, unspecified Qualifiers: Diarrhea type: infectious Qualified Code(s): A09 - Infectious gastroenteritis and colitis, unspecified (8) GERD (gastroesophageal reflux disease): Code(s): K21.9 - Gastro-esophageal reflux disease without esophagitis Qualifiers: Esophagitis bleeding: without hemorrhage Esophagitis presence: with esophagitis Qualified Code(s): K21.00 - Gastro-esophageal reflux disease with esophagitis, without bleeding (9) Esophageal spasm: Code(s): K22.4 - Dyskinesia of esophagus Plan 58 YF with hypercholesterolemia, depression, anxiety, asthma, hemorrhoids, hypertension diabetes type II, migraine headache thyroid disease (S/p surgery with removal of 1/2 of the gland), nephrolithiasis followed in GI for dysphagia, known hx of Schatzki's ring, epigastric pain, diarrhea and constipation. Patient is status post cholecystectomy for gallstones. Pt has a hx of recurrent C Diff infection. Patient is status post lap band surgery in 2010 and lap band was removed in 2015. Patient states that she's had pain at her upper stomach ever since she had the band place and even after removal the pain still remains. Manometry study at [facility] [place] was normal - no motility disorder was identified Patient has been referred to Dr Larsen for a 2nd opinion and appt was postponed due to COVID-19 pandemic and pt was not seen. 12/16/20 upper endoscopy with esophageal balloon dilation to 20mm (60 F) was performed without significant change in her symptoms. Pt has had recurrent C Diff since 2019 usually precipitated by antibiotic therapy. Last episode was in 03/2021 and treated with Vancomycin 125 mg four times daily x 10 days Patient was advised to continue HC cream/preparation H for hemorrhoids and referred to surgery. Pt advised to have a stool test checked for C Diff if she has recurrent diarrhea. 04/2023 EGD (FU of dysphagia) and colonoscopy were performed and results as noted above Patient advised repeat colonoscopy in 10 years. Stool studies showed C Diff colonization without infection Patient advised to continue with probiotics. 01/02/24 Patient continue with abdominal bloating, acid reflex with esophagus irritation, and between diarrhea and constipation. Complains of bloating and esophageal discomfort. Intermittent dysphagia associated with intake of rice and meats Patient denies significant improvement in dysphagia after past EGD and dilation. She complains of diarrhea alternating with constipation - recent C diff toxin was negative. Takes tramadol and ibuprofen infrequently for severe pain. Pt advised a trail of FODMAP diet for 6 weeks 02/13/24 EGD and bx results reviewed Pt denies any change in abdominal pain. Taking Sucralfate Abd pain was better while she was in the hospital and not taking the metformin Thinks abd pain may be related to metformin Has been taking Metformin for the past ? 4 yrs (since dxed with DM) Woke up with burning pain last night. Pain is associated with intake of hard and spicy foods (meats, rice, greasy foods) Pt advised to take Pantorpazole 40 mg twice daily for a month and then decrease to onec a day. Follow-up in 2-3 weeks Medications: New pantoprazole 40 mg PO BID 30 days 60 tabs 3RF K21.00 - Gastro-esophageal reflux disease with esophagitis, without bleeding, R10.13 - Epigastric pain Coding Level of Care Code Est Pt Level 4 (74065) Diagnoses Epigastric pain R10.13 Schatzki's ring K22.2 Colon cancer screening Z12.11 Abdominal bloating R14.0 Dysphagia, pharyngoesophageal phase R13.14 Diarrhea of infectious origin A09 Diarrhea type: infectious Gastroesophageal reflux disease with esophagitis without hemorrhage K21.00 Esophagitis bleeding: without hemorrhage Esophagitis presence: with esophagitis Esophageal spasm K22.4 Time Spent (min) 18
[2024-02-13 11:15] VITALS: BP 120/64; PULSE 80; BMI 31.8
== END 2024-02-13 12:08 | disposition home or self-care (01) ==
PROVIDERS: PCP Physician Assistant; Visit Provider Internal Medicine Gastroenterology
DX: R10.13 Epigastric pain (principal); K22.2 Esophageal obstruction; Z12.11 Encounter for screening for malignant neoplasm of colon; R14.0 Abdominal distension (gaseous); R13.14 Dysphagia, pharyngoesophageal phase; A09 Infectious gastroenteritis and colitis, unspecified; K21.00 Gastro-esophageal reflux disease with esophagitis, without bleeding; K22.4 Dyskinesia of esophagus
CPT/HCPCS: 99214

== ENCOUNTER → 2024-02-13 11:08 | Outpatient (BNVA) | payer OTHER, SELFPAY | PROVIDERS: PCP Physician Assistant; Visit Provider Internal Medicine Gastroenterology | DX: K21.00 Gastro-esophageal reflux disease with esophagitis, without bleeding (principal); A09 Infectious gastroenteritis and colitis, unspecified; K22.4 Dyskinesia of esophagus; K22.2 Esophageal obstruction; R13.14 Dysphagia, pharyngoesophageal phase; R14.0 Abdominal distension (gaseous); R10.13 Epigastric pain | CPT/HCPCS: 99212 ==

== ENCOUNTER 2024-03-04 08:57 | Outpatient (AMB) | payer OTHER, SELFPAY ==
--- NOTE | 2024-03-04 09:12 | MHC.PC.OV ---
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 Accompanied by: Self / Same As Patient Allergies seafood Allergy (Unknown, Verified 03/04/24 09:25) Unknown [facility] Adverse Reaction (Intermediate, Verified 03/04/24 09:28) Diarrhea metformin Adverse Reaction (Intermediate, Verified 03/04/24 09:28) GAstric upset lisinopril Adverse Reaction (Unknown, Verified 03/04/24 09:25) cough Medication List - Last Reconciled 03/04/24 by Silvino Andujar PA-C acetaminophen (Tylenol Extra Strength) 1,000 mg (2 x 500 mg) PO QID PRN albuterol sulfate 90 mcg/actuation 2 puffs inhalation QID 30 days albuterol sulfate 2.5 mg (3 mL) inhalation Q6H PRN 30 days atorvastatin 40 mg PO BEDTIME blood sugar diagnostic (FreeStyle Precision Steffen Strips) As directed once daily blood-glucose meter (FreeStyle Precision Steffen Meter) As directed cetirizine 10 mg PO DAILY PRN 90 days cholecalciferol (vitamin D3) 25 mcg PO QPM citalopram 20 mg PO DAILY@0900 clonazepam 2 mg PO BEDTIME clonazepam 1 mg PO DAILY@0900 famotidine (Pepcid) 40 mg PO BEDTIME 90 days fenofibrate nanocrystallized 48 mg PO DAILY fluticasone propionate 110 mcg/actuation 1 puff inhalation BID gabapentin 300 mg PO DAILY@0900 metformin 1,000 mg PO DAILY 90 days pantoprazole 40 mg PO BID 30 days pyridoxine (vitamin B6) 100 mg (2 x 50 mg) PO DAILY 90 days sucralfate 1 g PO QIDACHS telmisartan (Micardis) 20 mg PO DAILY@0900 tramadol 50 mg PO DAILY PRN zolpidem 10 mg PO BEDTIME Tobacco use date assessed: 11/05/23 Dental Screening Dental Screen Date: 11/05/23 [place] [facility] [place] stomach/abdominal pain HPI Details Patient is a 58-year-old female here today for a hospital discharge follow-up.? Patient has a past Conditions history significant for type 2 diabetes, hypertension, obesity, recurrent C diff colitis, moderate persistent asthma, pulmonary nodule, major depressive disorder and generalized anxiety disorder. Patient recently admitted to [facility] for acute abdominal discomfort and diarrhea. CT while in the ER did evidence gastric inflammation. Also during CT of abdomen and pelvis sit incidental persistent vaginal mass was found. While in the hospital she underwent an endoscopy which did show gastritis and recommendations were made to continue PPI and discontinue NSAIDs. Carafate was also started. Was stopped to be metformin that may be causing some GI upset. Will discontinue metformin and try her Ozempic. Note did try Trulicity though had intolerable diarrhea.. If GLP 1 remains to have side effect will start patient on daily long-acting insulin. CHRONIC MEDICAL CONDITIONS--> Plantar fasciitis: Also continues to have pain in her left plantar region , now followed by Podiatry and has received injections. .. Type 2 diabetes:? Diabetes under fair control. She tried Trulicity though had side effect of diarrhea.? She reports the metformin causes her some GI upset and increased diarrhea even in the setting of her C diff colitis.? PLAN: Will discontinue metformin as she seems to be having GI side effects. Willing to transition to Ozempic. If Ozempic does cause side effect will consider long-acting daily insulin. . Asthma: Asthma as of lately has been fairly well controlled. Did have viral illness in August of 2023 that exacerbated her asthma requiring antibiotics and prednisone. ? . .. Major depressive disorder, generalized anxiety disorder:? Continues to follow a mental therapist and a psychiatrist whom manage her mental health medications.? She feels fairly stable at this time with her mental health medications. [facility] Medical History History of panic attacks Asthma Anal fissure Anal pain Pulmonary nodules Hx of renal calculi Flu-like symptoms Spondylosis of lumbar spine Fibromyalgia Dyslipidemia Obesity, Class I, BMI 30-34.9 Nephrolithiasis Recurrent Clostridioides difficile infection Hx of thyroid nodule Back pain Arthritis Depression Anxiety Type 2 diabetes mellitus HLD (hyperlipidemia) GERD (gastroesophageal reflux disease) HTN (hypertension) Surgical History History of esophagogastroduodenoscopy (EGD) Hx of cosmetic surgery Hx of tonsillectomy Hx of section Hx of lithotripsy Hx of endoscopy Hx of colonoscopy (~11/2016) S/P anal fissurectomy H/O hemorrhoidectomy Hx laparoscopic cholecystectomy S/P left oophorectomy H/O partial thyroidectomy (~2016) History of removal of laparoscopic gastric banding device (~2015) History of abdominoplasty History of colonoscopy History of laparoscopic adjustable gastric banding (~2010) History of bilateral breast reduction surgery (~2008) History of hysterectomy Family History Father Diabetes Hypertension Depression Mother Lung cancer Diabetes Mental health disorder Brother HIV (human immunodeficiency virus infection) Depression Diabetes Sister Hypertension Diabetes Mental health disorder Daughter Mental health disorder Son Mental health disorder Social History Household Members: Children Housing: House Do you presently have visiting nurse or other home services: Yes Alcohol intake: current Alcohol intake frequency: holidays/special occasions only Patient Tobacco Use Status: Former Tobacco user Quit Date: 16 yrs ago e-Cigarette/Vaping Use: Never Used Second Hand Smoke Exposure: No Substance Use Type: Marijuana service: No Current occupational status: disabled Cognitive needs: No Hearing needs: No Vision needs: Yes Questionnaire Thrive Questionnaire Date Thrive assessed: 11/05/23 EMIL-7 AMB Questionnaire EMIL-7 Date EMIL - 7 assessed: 11/05/23 Source: Developed by Drs. Vazquez Holden, Jaye Ryan, Carl Gaona and colleagues, with an educational kalpana from [employer]. Review of Systems Const Denies headache(s) Eyes Denies loss of vision ENT Denies vertigo, Denies dizziness, Denies headache(s) and Denies sore throat Card Denies chest pain, Denies leg edema and Denies lightheadedness Resp Denies cough, Denies hemoptysis and Denies wheezing GI Reports abdominal pain, Denies melena, Denies constipation, Reports heartburn, Reports diarrhea and Denies vomiting Denies urinary frequency, Denies dysuria and Denies urinary urgency Musc Denies arthralgias, Denies joint swelling, Denies numbness and Denies tingling Neuro Denies Abnormal speech present, Denies behavioral changes, Denies vertigo, Denies dizziness, Denies headache(s), Denies loss of vision, Denies memory loss, Denies numbness and Denies tingling Psych Denies anxiety, Denies behavioral changes, Denies depression, Denies memory loss and Denies panic attacks Swapnil/Lymph Denies easy bleeding and Denies easy bruising Aller/Immun Denies wheezing Physical exam (Primary Care) Vital Signs: Last Vital Signs Pulse 86 03/04/24 09:13 BP 122/82 03/04/24 09:13 Pulse Ox 98 03/04/24 09:13 Oxygen Delivery Method Room Air 03/04/24 09:13 BMI result Body Mass Index 31.6 Tobacco/Smoking Status: Tobacco use Status Tobacco use date assessed 11/05/23 03/04/24 09:15 Patient Tobacco Use Status Former Tobacco user 03/04/24 09:15 e-Cigarette/Vaping Use Never Used 03/04/24 09:15 Thrive Assessment: Date of Thrive Assessment Date Thrive assessed 11/05/23 03/04/24 09:15 Const General: healthy appearing, no acute distress, alert and awake Nutritional Appearance: well nourished Orientation/consciousness: oriented to person, oriented to place and oriented to time HENMT Ears: TM's normal bilaterally General nose exam: Normal nasal mucous membranes and turbinates present Eyes Conjunctivae: conjunctivae normal Sclerae: sclerae normal Pupils: Equal, round and reactive pupils present Neck Neck: Yes no lymphadenopathy and Yes no JVD Thyroid: Thyroid normal Carotids: no bruits Resp Effort & Inspection: normal respiratory effort and not tachypneic Auscultation: no crackles, no rales, no rhonchi and no wheezes Cardio Rate: regular rate Rhythm: regular rhythm Heart sounds: no murmurs and normal S1 and S2 GI Palpation (GI): Soft to palpation, nontender, no hepatomegaly and no splenomegaly Auscultation: normal bowel sounds Skin General skin exam: no rashes or lesions noted and dry skin Neuro General: oriented to person, oriented to place and oriented to time Cranial nerves: Yes Equal, round and reactive pupils present Speech: No Abnormal speech present Gait exam (Neuro): Normal gait present Motor exam (neuro): no tremor noted Extrem Right upper extremity: full ROM Left upper extremity: full ROM Right lower extremity: full ROM; no edema Left lower extremity: full ROM; no edema Psych Mental Status: mental status grossly normal Speech and movement: Normal speech and movement present Affect: normal affect Attitude: cooperative Thought process: Normal thought process present Results AMB Hemoglobin A1c AMB Hemoglobin A1c 7.2 % Last Edit by MAYA Sykes on 03/04/24 09:35 Results Reviewed Results Reviewed: Laboratory Last Values Hgb A1c (Clinic) 7.2 % (4.0-6.0) H 03/04/24 09:17 Assessment and Plan Assessment & Plan (1) Hospital discharge follow-up: Code(s): Z09 - Encounter for follow-up examination after completed treatment for conditions other than malignant neoplasm Plan: As per HPI patient is seen for epigastric pain. She underwent endoscopy that did show gastritis. She was started on PPI therapy and Carafate. 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 Today's A1c is 7.2. She had side effects to Trulicity of diarrhea. She is willing to transition to Ozempic. If she has gLP 1 side effect again will consider daily long-acting insulin. Goal A1c is to be below 7.0 (3) HTN (hypertension): Code(s): I10 - Essential (primary) hypertension Qualifiers: Hypertension type: essential hypertension Qualified Code(s): I10 - Essential (primary) hypertension Plan: Patient's blood pressure acceptable today in office. Will continue her current dose of antihypertensive medication with goal blood pressure to be below 140/90 (4) Obese: Code(s): E66.9 - Obesity, unspecified Qualifiers: Body mass index: BMI 31.0-31.9 Obesity classification: adult class 1 (BMI 30 - 34.9) Obesity type: due to excess calories Serious obesity comorbidity presence: with serious comorbidity Qualified Code(s): E66.09 - Other obesity due to excess calories; Z68.31 - Body mass index [BMI] 31.0-31.9, adult Plan: Patient does understand her BMI is over 30 will continue working on following better eating habits to reduce her weight. Will increase her dose of Trulicity for added benefit to more weight loss. (5) Plantar fasciitis of left foot: Code(s): M72.2 - Plantar fascial fibromatosis Plan: Is followed by Podiatry and has received 2 cortisone injections. Unfortunately still has pain and is awaiting a 3rd cortisone injection in her plantar region. (6) MDD (major depressive disorder), recurrent episode, moderate: Code(s): F33.1 - Major depressive disorder, recurrent, moderate Plan: She continues to suffer with depression. She does see a mental health therapist and a psychiatrist who manages her mental health medications. (7) GERD (gastroesophageal reflux disease): Code(s): K21.9 - Gastro-esophageal reflux disease without esophagitis Qualifiers: Esophagitis bleeding: without hemorrhage Esophagitis presence: with esophagitis Qualified Code(s): K21.00 - Gastro-esophageal reflux disease with esophagitis, without bleeding Plan: Recently hospitalized for GERD. Carafate has been started. Will stop metformin as this may be a culprit as well. 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 Discontinued acetaminophen (Tylenol Extra Strength) Discontinued Reason: Doctor's Order 1,000 mg (2 x 500 mg) PO QID PRN 14 tabs 0RF fever or pain U07.1 - COVID-19 On Hold metformin Hold Comment: Doctor's Order 1,000 mg PO DAILY 90 days 90 tabs 2RF E11.9 - Type 2 diabetes mellitus without complications Coding Level of Care Code Est Pt Level 4 (38010) Diagnoses Hospital discharge follow-up Z09 Type 2 diabetes mellitus without complication, with long-term current use of insulin E11.9; Z79.4 Diabetes mellitus complication status: without complication Diabetes mellitus custodial insulin use: with custodial use Essential hypertension I10 Hypertension type: essential hypertension Class 1 obesity due to excess calories with serious comorbidity and body mass index (BMI) of 31.0 to 31.9 in adult E66.09; Z68.31 Body mass index: BMI 31.0-31.9 Obesity classification: adult class 1 (BMI 30 - 34.9) Obesity type: due to excess calories Serious obesity comorbidity presence: with serious comorbidity Plantar fasciitis of left foot M72.2 MDD (major depressive disorder), recurrent episode, moderate F33.1 Gastroesophageal reflux disease with esophagitis without hemorrhage K21.00 Esophagitis bleeding: without hemorrhage Esophagitis presence: with esophagitis
[2024-03-04 09:13] VITALS: BP 122/82; PULSE 86; O2SAT 98; BMI 31.6
== END 2024-03-04 09:46 | disposition home or self-care (01) ==
PROVIDERS: PCP Physician Assistant; Visit Provider Physician Assistant
DX: E11.9 Type 2 diabetes mellitus without complications (principal); F33.1 Major depressive disorder, recurrent, moderate; Z68.31 Body mass index [BMI] 31.0-31.9, adult; E66.09 Other obesity due to excess calories; Z79.4 Long term (current) use of insulin; Z09 Encounter for follow-up examination after completed treatment for conditions other than malignant neoplasm; I10 Essential (primary) hypertension; M72.2 Plantar fascial fibromatosis; K21.00 Gastro-esophageal reflux disease with esophagitis, without bleeding
CPT/HCPCS: 83036; 99214

== ENCOUNTER 2024-03-05 07:52 | Outpatient (AMB) | payer OTHER, SELFPAY ==
--- NOTE | 2024-03-05 07:57 | A.OFFVIS_ITS ---
Vital Signs 03/05/24 08:07 Height 5 ft 6 in Weight 196 lb BMI 31.6 BP 118/64 Blood Pressure Location Lt brachial Position Sitting Pulse 62 Intake Visit Reasons: follow up Intake Note: Patient follow up for abdominal bloating. Patient cc: abdominal bloating and some abdominal pain on and off, and denies any other GI issues. 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 Accompanied by: Self / Same As Patient Allergies seafood Allergy (Unknown, Verified 03/05/24 08:06) Unknown dulaglutide [From [facility]] Adverse Reaction (Intermediate, Verified 03/05/24 08:06) Diarrhea metformin Adverse Reaction (Intermediate, Verified 03/05/24 08:06) GAstric upset lisinopril Adverse Reaction (Unknown, Verified 03/05/24 08:06) cough Medication List - Last Reconciled 03/05/24 by Shabnam Hitchcock MD acetaminophen ER (Tylenol Arthritis Pain) 650 mg PO Q12H 30 days albuterol sulfate 90 mcg/actuation 2 puffs inhalation QID 30 days albuterol sulfate 2.5 mg (3 mL) inhalation Q6H PRN 30 days atorvastatin 40 mg PO BEDTIME blood sugar diagnostic (FreeStyle Precision Steffen Strips) As directed once daily blood-glucose meter (FreeStyle Precision Steffen Meter) As directed cetirizine 10 mg PO DAILY PRN 90 days cholecalciferol (vitamin D3) 25 mcg PO QPM citalopram 20 mg PO DAILY@0900 clonazepam 2 mg PO BEDTIME clonazepam 1 mg PO DAILY@0900 famotidine (Pepcid) 40 mg PO BEDTIME 90 days fenofibrate nanocrystallized 48 mg PO DAILY fluticasone propionate 110 mcg/actuation 1 puff inhalation BID gabapentin 300 mg PO DAILY@0900 metformin 1,000 mg PO DAILY 90 days pantoprazole 40 mg PO BID 30 days pyridoxine (vitamin B6) 100 mg (2 x 50 mg) PO DAILY 90 days semaglutide (Ozempic) 0.25 mg (0.368 mL) subcut QWEEK 4 weeks sucralfate 1 g PO QIDACHS telmisartan (Micardis) 20 mg PO DAILY@0900 tramadol 50 mg PO DAILY PRN zolpidem 10 mg PO BEDTIME HPI HPI follow up: Details: GI CLINIC VISIT FOR THIS 58-YEAR-OLD FEMALE FOR RECTAL PAIN. PT IS FOLLOWED IN GI FOR DYSPHAGIA AND EPIGASTRIC PAIN. PATIENT IS STATUS POST LAP BAND SURGERY IN 2010 AND LAP BAND WAS REMOVED IN 2016. Pt was seen by Dr Parry for anal pain and treated with topical NTG followed by Nifedipine Pelvic CT scan was negative for perianal abscess. ?CHRONIC ILLNESSES:?hypercholesterolemia, depression, anxiety, asthma, hemorrhoids, hypertention diabetes type II, nephrolithiasis ? LABS IN [facility]:?05/16 Reviewed. ? Stool antigen for C Diff was positive ON AND February and negative on 10/08/19 ?IMAGING STUDIES: 02/04/[address] SCAN SHOWED: Lobulated mass anterior to the vaginal cuff is unchanged relative to comparison studies. It measures approximately 3.4 x 2.3 x 2.5 cm. Gastric wall thickening is suspected. Consider correlation with direct visualization. Hepatomegaly and hepatic steatosis. 07/2021 GASTRIC EMPTYING STUDY SHOWED:No abnormal retention of solid food is noted. Gastric emptying is more rapid than normal, a finding of uncertain clinical significance. ?09/13/[address] SCAN SHOWED: ? Mild right hydroureteronephrosis. 0.5 cm calculus at the right ureterovesicular junction. ? Hepatomegaly with hepatic steatosis. 07/15 Barium swallow showed:? Delay in passage of a 13 mm barium tablet across the gastroesophageal junction, raising the possibility of underlying stricturing.? No delay in liquid barium passage across the gastroesophageal junction. ENDOSCOPIC STUDIES: ? 02/04/24 EGD SHOWED: Esophagus: GE junction at 37 cm, diaphragm hiatus at 37 cm, normal Stomach: mild patchy erythema . Biopsies were obtained. Grade 2 flap valve on retroflexed examination of the cardia. Duodenum: Normal bulb and descending duodenum, bx taken Impression/Findings: mild gastritis PLAN: cont with PPI add carafate QID if ongoing sx then consider US duplex to r/o ischemia, and if neg then head scan to r/o central cause of sx BIOPSIES SHOWED: A. Duodenum, biopsy: Chronic inactive duodenitis. B. Stomach, biopsy: Oxyntic mucosa within normal limits; no Helicobacter organisms 04/2023 EGD AND COLONOSCOPY SHOWED:ESOPHAGUS: Tortuous esophagus with increased tertiary contractions without stricture or ring - biopsies obtained during past EGD were negative for EOE.??GE junction at 36 cms.? Minimal focal esophagitis at GE junction and no Garcia's.Empiric balloon dilation was performed with a 20 mm (60 F) CRE balloon x 60 sec STOMACH: Mild gastritis DUODENUM: A small benign appearing polyp was biopsied in the duodenal bulb. Biopsied obtained from 3rd part of the duodenum to check for celiac sprue Colonoscopy Findings: One polyp was biopsied - biopsies showed lymphoid aggregates. Random biopsies obtained from the right and left colon to check for microscopic colitis Moderate diverticulosis seen in the sigmoid colon Small hemorrhoids on retroflexed exam. Colon aspirate was sent for C Diff toxin Plan: Repeat Colonoscopy interval based on path results - in 3-5 years if polyps are adenomatous and 10 years if polyps are hyperplastic. 12/16/20 EGD SHOWED:ESOPHAGUS: Tortuous esophagus with increased tertiary contractions without stricture or ring - biopsies were obtained from proximal esophagus to check for EOE.GE junction at 36 cms.? Prominent folds at GE junction - biopsied.? No esophagitis or BarrettBalloon dilation was performed with 19 and 20mm CRE balloon x 60 seconds at each level STOMACH: Gastritis with a few superficial antral erosions likely due to NSAIDS DUODENUM: Normal - biopsied to check for celiac sprue. Plan:? Patient has an appointment on 01/19/21 in the GI Clinic with Shabnam Hitchcock M.D. If symptoms persist, further evaluation with a chest CT scan will be scheduled Above findings were reviewed with the patient and Gastritis handout was given in the discharge area BIOPSIES SHOW: A.? Small bowel, biopsy:? Small bowel mucosa within normal limits; preserved villous architecture and no increased intraepithelial lymphocytes. B. Stomach, antrum, biopsy:? Gastric antral mucosa with mild chronic inactive gastritis; negative for Helicobacter pylori, intestinal metaplasia and dysplasia. C. Esophagus, proximal, biopsy:? Squamous mucosa within normal limits; negative for inflammation (including eosinophils), fungal organisms, intestinal metaplasia and dysplasia. D. Gastroesophageal junction, biopsy:? Gastric cardia-type mucosa with mild chronic inactive inflammation; no squamous mucosa seen; negative for intestinal metaplasia or dysplasia. 07/2018 EGD WITH ESOPHAGEAL BALLOON DILATION WAS PERFORMED BY DR. JENKINS:? 1. Distal esophageal ring (question of muscular).? 2. Superficial gastritis.BIOPSIES SHOWED: Fragments of unremarkable fundic-type gastric mucosa. The Helicobacter pylori immunohistochemical stain is negative. ?? ? IMPEDENCE TESTIN HR AMBULATORY pH-IMPEDENCE TESTING WITH HIGH RESOLUTION ESOPHAGEAL MANOMETRY: ? Normal UES function, Normal LES length ? Normal LES/EGJ resting pressure, Normal LES relaxation ? No hiatal hernia was detected manometrically ? [place] Classification 3.0: Normal Esophageal contractility. ?TODAY'S VISIT Patient cc: abdominal bloating and some abdominal pain on and off, and denies any other GI issues. Pt reports she is feeling better. Can have some pain if she eats something hard - meats and crackers, sauces. Has been avoiding foods which cause abd pain and medication is helping. She is being switched to a new medication for DM - waiting for insurance approval. Patient cc: abdominal pain/bloating, acid reflex with burning sensation, and between diarrhea and constipation. Pt seen by Psychiatric Aide at [facility] and had a Pelvic US on 02/25/24 - ? post surgical changes related to past hysterectomy She was told it looks like a fibroma and no surgery is needed. EGD and bx results reviewed Pt denies any change in abdominal pain. Taking Sucralfate Abd pain was better while she was in the hospital and not taking the metformin Thinks abd pain may be related to metformin Has been taking Metformin for the past ? 4 yrs (since dxed with DM) Woke up with burning pain last night. Pain is associated with intake of hard and spicy foods (meats, rice, greasy foods) PAST VISITS: Patient continue with abdominal bloating, acid reflex with esophagus irritation, and between diarrhea and constipation. Complains of bloating and esophageal discomfort. Intermittent dysphagia associated with intake of rice and meats Patient denies significant improvement in dysphagia after past EGD and dilation. She complains of diarrhea alternating with constipation - recent C diff toxin was negative. Takes tramadol and ibuprofen infrequently for severe pain. EGD and colon results reviewed with the patient. Notes upper abdominal discomfort. Feels food is moving slowly in the lower esophagus. Had choking with a piece of meat Gives a hx of colon polyps in the past Diarrhea is better - taking probiotics Niece has stage 4 lung cancer and rapidly declining and on being placed under hospice care. Patient cc: Nauseas, abdominal pain/bloating, and diarrhea on and off, also she is been having some swallowing problems. Diarrhea comes and goes. Notes post prandial nausea and sometimes diarrhea. Stool is frothy and floats on the toilet water. She also complains of bad breath - which is new (states dental check up was normal) Notes diarrhea with everything she eats. Intermittent abdominal bloating When she eats she feels she has eaten a ton of food. Has symptoms with solid food and not with soups. Denies nausea or vomiting. SANDOVAL x 4 days - COVID test was negative. Notes cramps in the abdominal wall when she moves from side to side - likely musculoskeletal. Bad breath has improved with medications. Has 2 BMs a day - depending on her diet. Last episode of diarrhea started after she had antibiotics for sinus infection Recurrent diarrhea with abd pain x 2 weeks Notes bad breath Notes sharp and throbbing pain in the rectum after having multiple episodes of diarrhea Chills at night which she attributes to menopause. Has been eating small portions due to decreased appetite Wt loss to 200 lbs (208 lbs in 11/2020) [facility] Medical History (Updated 03/05/24 @ 08:00 by Shabnam Hitchcock MD) History of panic attacks Asthma Anal fissure Anal pain Pulmonary nodules Hx of renal calculi Flu-like symptoms Spondylosis of lumbar spine Fibromyalgia Dyslipidemia Obesity, Class I, BMI 30-34.9 Nephrolithiasis Recurrent Clostridioides difficile infection Hx of thyroid nodule Back pain Arthritis Depression Anxiety Type 2 diabetes mellitus HLD (hyperlipidemia) GERD (gastroesophageal reflux disease) HTN (hypertension) Surgical History History of esophagogastroduodenoscopy (EGD) Hx of cosmetic surgery Hx of tonsillectomy Hx of section Hx of lithotripsy Hx of endoscopy Hx of colonoscopy (~11/2016) S/P anal fissurectomy H/O hemorrhoidectomy Hx laparoscopic cholecystectomy S/P left oophorectomy H/O partial thyroidectomy (~2016) History of removal of laparoscopic gastric banding device (~2015) History of abdominoplasty History of colonoscopy History of laparoscopic adjustable gastric banding (~2010) History of bilateral breast reduction surgery (~2008) History of hysterectomy Family History Father Diabetes Hypertension Depression Mother Lung cancer Diabetes Mental health disorder Brother HIV (human immunodeficiency virus infection) Depression Diabetes Sister Hypertension Diabetes Mental health disorder Daughter Mental health disorder Son Mental health disorder Social History Household Members: Children Housing: House Do you presently have visiting nurse or other home services: Yes Alcohol intake: current Alcohol intake frequency: holidays/special occasions only Patient Tobacco Use Status: Former Tobacco user Quit Date: 16 yrs ago e-Cigarette/Vaping Use: Never Used Second Hand Smoke Exposure: No Substance Use Type: Marijuana service: No Current occupational status: disabled Cognitive needs: No Hearing needs: No Vision needs: Yes Review of Systems Const All systems reviewed & are unremarkable except as noted in HPI and below Physical Exam Const General: no acute distress Nutritional Appearance: obese Orientation/consciousness: patient oriented x3 Limitations: no limitations HEENT Head: Yes normal to inspection Ears: hearing grossly normal bilaterally Eyes Sclerae: sclerae normal Pupils: Equal, round and reactive pupils present Neck Neck: Yes normal visual inspection Chest Chest palpation & inspection: normal inspection of the chest Resp Effort & Inspection: normal respiratory effort Auscultation: clear to auscultation bilaterally Cardio Palpation: normal PMI Rate: regular rate Rhythm: regular rhythm Heart sounds: S1 normal heart sound present, S2 normal heart sound present and no murmurs GI Palpation (GI): Soft to palpation, nontender and No hepatosplenomegaly present Auscultation: normal bowel sounds Rectal Exam - Female: deferred Skin General skin exam: no rashes or lesions noted Neuro General: patient oriented x3, gait normal and moves all extremities Cranial nerves: Yes Equal, round and reactive pupils present Psych Appearance: grossly normal Mental Status: mental status grossly normal Assessment & Plan Assessment & Plan (1) Epigastric pain: Code(s): R10.13 - Epigastric pain Category: Medical (2) Schatzki's ring: Code(s): K22.2 - Esophageal obstruction Category: Medical (3) Colon cancer screening: Comment: 11/2016 a diminutive polyp was removed during colonoscopy by Dr. Jenkins. Repeat colonoscopy was advised in 10 years. Code(s): Z12.11 - Encounter for screening for malignant neoplasm of colon Category: Medical (4) Dysphagia, pharyngoesophageal phase: Code(s): R13.14 - Dysphagia, pharyngoesophageal phase Category: Medical (5) Diarrhea: Code(s): R19.7 - Diarrhea, unspecified Category: Medical Qualifiers: Diarrhea type: infectious Qualified Code(s): A09 - Infectious gastroenteritis and colitis, unspecified (6) Hemorrhoids: Code(s): K64.9 - Unspecified hemorrhoids Category: Medical (7) Drug induced constipation: Code(s): K59.03 - Drug induced constipation Category: Medical (8) GERD (gastroesophageal reflux disease): Code(s): K21.9 - Gastro-esophageal reflux disease without esophagitis Category: Medical Qualifiers: Esophagitis presence: with esophagitis Esophagitis bleeding: without hemorrhage Qualified Code(s): K21.00 - Gastro-esophageal reflux disease with esophagitis, without bleeding (9) Esophageal spasm: Code(s): K22.4 - Dyskinesia of esophagus Category: Medical Plan 58 YF with hypercholesterolemia, depression, anxiety, asthma, hemorrhoids, hypertension diabetes type II, migraine headache thyroid disease (S/p surgery with removal of 1/2 of the gland), nephrolithiasis followed in GI for dysphagia, known hx of Schatzki's ring, epigastric pain, diarrhea and constipation. Patient is status post cholecystectomy for gallstones. Pt has a hx of recurrent C Diff infection. Patient is status post lap band surgery in 2010 and lap band was removed in 2015. She reports pain at her upper stomach ever since she had the band place and even after removal. Manometry study at [facility] was normal - no motility disorder was identified Patient has been referred to Dr Larsen for a 2nd opinion and appt was postponed due to COVID-19 pandemic and pt was not seen. 12/16/20 upper endoscopy with esophageal balloon dilation to 20mm (60 F) was performed without significant change in her symptoms. Pt has had recurrent C Diff since 2019 usually precipitated by antibiotic therapy. Last episode was in 03/2021 and treated with Vancomycin 125 mg four times daily x 10 days Patient was advised to continue HC cream/preparation H for hemorrhoids and referred to surgery. Pt advised to have a stool test checked for C Diff if she has recurrent diarrhea. 04/2023 EGD (FU of dysphagia) and colonoscopy were performed and results as noted above Patient advised repeat colonoscopy in 10 years. Stool studies showed C Diff colonization without infection Patient advised to continue with probiotics. 01/02/24 Patient continue with abdominal bloating, acid reflex with esophagus irritation, and between diarrhea and constipation. Complains of bloating and esophageal discomfort. Intermittent dysphagia associated with intake of rice and meats Patient denies significant improvement in dysphagia after past EGD and dilation. She complains of diarrhea alternating with constipation - recent C diff toxin was negative. Takes tramadol and ibuprofen infrequently for severe pain. Pt advised a trail of FODMAP diet for 6 weeks 02/13/24 EGD and bx results reviewed Pt denies any change in abdominal pain. Taking Sucralfate Abd pain was better while she was in the hospital and not taking the metformin Thinks abd pain may be related to metformin Has been taking Metformin for the past ? 4 yrs (since dxed with DM) Woke up with burning pain last night. Pain is associated with intake of hard and spicy foods (meats, rice, greasy foods) 03/05/24 Abd pain improved. Pt advised to continue Pantorpazole 40 mg twice daily for a month and then decrease to once a day alternating with twica a day for another month Follow-up in 4 months Coding Level of Care Code Est Pt Level 3 (42495) Diagnoses Epigastric pain R10.13 Schatzki's ring K22.2 Colon cancer screening Z12.11 Dysphagia, pharyngoesophageal phase R13.14 Diarrhea of infectious origin A09 Diarrhea type: infectious Hemorrhoids K64.9 Drug induced constipation K59.03 Gastroesophageal reflux disease with esophagitis without hemorrhage K21.00 Esophagitis presence: with esophagitis Esophagitis bleeding: without hemorrhage Esophageal spasm K22.4 Time Spent (min) 18
[2024-03-05 08:07] VITALS: BP 118/64; PULSE 62; BMI 31.6
== END 2024-03-05 08:29 | disposition home or self-care (01) ==
PROVIDERS: PCP Physician Assistant; Visit Provider Internal Medicine Gastroenterology
DX: R10.13 Epigastric pain (principal); K22.2 Esophageal obstruction; Z12.11 Encounter for screening for malignant neoplasm of colon; R13.14 Dysphagia, pharyngoesophageal phase; A09 Infectious gastroenteritis and colitis, unspecified; K64.9 Unspecified hemorrhoids; K59.03 Drug induced constipation; K21.00 Gastro-esophageal reflux disease with esophagitis, without bleeding; K22.4 Dyskinesia of esophagus
CPT/HCPCS: 99213

== ENCOUNTER 2024-03-05 07:52 | Outpatient (REF) | payer OTHER, SELFPAY ==
[2024-03-05 09:06] LABS: Hematocrit 40.5 % (37.0-47.0); Hemoglobin 14.1 g/dl (12.0-16.0); Mean Corpuscular HGB Conc 34.8 g/dl (31.0-35.0); Mean Corpuscular Volume 83.2 fL (80.0-98.0); Mean Platelet Volume 8.9 fL (9.4-12.3); Platelet Count 249 X10*3/uL (160-400); Red Blood Count 4.87 X10*6/uL (4.20-5.50); White Blood Count 5.3 X10*3/uL (4.8-10.8)
[2024-03-05 09:44] LABS: Alanine Aminotransferase 27 U/L (0-31); Albumin Level 4.6 g/dL (3.5-5.0); Alkaline Phosphatase 56 U/L (39-117); Anion Gap 16 (12-20); Aspartate Amino Transferase 17 U/L (5-31); Bilirubin Total 1.1 mg/dL (0.0-1.0); Blood Urea Nitrogen 11 mg/dL (9-16); Calcium 10.3 mg/dL (8.4-10.2); Carbon Dioxide 26 mmol/L (22-29); Chloride 102 mmol/L (96-108); Cholesterol 268 mg/dL (<200); Estimated Glomerular Filt Rate > 60; Glucose Fasting 136 mg/dL (60-99); HDL Cholesterol 48 mg/dL (>40); LDL Cholesterol Calculated 149 mg/dL (<100); Potassium 4.1 mmol/L (3.3-5.1); Sodium 140 mmol/L (135-145); Total Protein 7.6 g/dL (6.5-8.0); Triglycerides 355 mg/dL (<150)
== END 2024-03-05 07:53 | disposition home or self-care (01) ==
LOC: HO.LAB 07:52
PROVIDERS: Absent Provider Physician Assistant; PCP Physician Assistant; Visit Provider Internal Medicine Gastroenterology
DX: I10 Essential (primary) hypertension (principal); E11.9 Type 2 diabetes mellitus without complications; E78.5 Hyperlipidemia, unspecified; K21.00 Gastro-esophageal reflux disease with esophagitis, without bleeding
CPT/HCPCS: 36415; 80053; 80061; 85027; 99212

== ENCOUNTER 2024-03-31 11:30 | Outpatient (REF) | payer OTHER, SELFPAY | END 2024-03-31 11:31 | disposition home or self-care (01) | LOC: HO.MAMMO 11:30 | PROVIDERS: PCP Physician Assistant; Visit Provider Obstetrics & Gynecology Female Pelvic Medicine and Reconstructive Surgery | DX: Z12.31 Encounter for screening mammogram for malignant neoplasm of breast (principal) | CPT/HCPCS: 77063; 77067 ==

== ENCOUNTER → 2024-03-31 11:45 | Outpatient (BNV) | payer OTHER, SELFPAY | PROVIDERS: PCP Physician Assistant; Visit Provider Radiology Diagnostic Radiology | DX: Z12.31 Encounter for screening mammogram for malignant neoplasm of breast (principal) | CPT/HCPCS: 77063; 77067 ==

== ENCOUNTER 2024-04-29 11:35 | Outpatient (AMB) | payer OTHER, SELFPAY ==
--- NOTE | 2024-04-29 11:36 | AM.OFFWIN_ITS ---
Intake Vital Signs 04/29/24 11:39 Height 5 ft 6 in Weight 196 lb BMI 31.6 BP 116/80 Blood Pressure Location Rt brachial Position Sitting Pulse 76 Pulse Source Pulse Oximeter Temp 98.2 F Temp Source Oral Pulse Oximetry (%) 97 Intake Visit Reasons: EP Congestion, Wheezing Intake Note: pt is here for congestion, with wheezing Patient Tobacco Use Status: Former Tobacco user Allergies seafood Allergy (Unknown, Verified 04/29/24 11:39) Unknown dulaglutide [From [facility]] Adverse Reaction (Intermediate, Verified 04/29/24 11:39) Diarrhea metformin Adverse Reaction (Intermediate, Verified 04/29/24 11:39) GAstric upset lisinopril Adverse Reaction (Unknown, Verified 04/29/24 11:39) cough Do you need a note to return to daycare/school/sports/work: No HPI HPI Comments History of Present Illness Details 59 y/o female patient who presents to [facility] in clinic with c/o Wheezing, cough, SOB and chest Pains since Saturday. Pt was seen at another clinic Saturday and was prescribed Prednisone and Doxy. Today Pt reports no improvement and still has SOB and Wheezing. [facility] Medical History (Updated 03/05/24 @ 08:00 by Shabnam Hitchcock MD) History of panic attacks Asthma Anal fissure Anal pain Pulmonary nodules Hx of renal calculi Flu-like symptoms Spondylosis of lumbar spine Fibromyalgia Dyslipidemia Obesity, Class I, BMI 30-34.9 Nephrolithiasis Recurrent Clostridioides difficile infection Hx of thyroid nodule Back pain Arthritis Depression Anxiety Type 2 diabetes mellitus HLD (hyperlipidemia) GERD (gastroesophageal reflux disease) HTN (hypertension) Surgical History History of esophagogastroduodenoscopy (EGD) Hx of cosmetic surgery Hx of tonsillectomy Hx of section Hx of lithotripsy Hx of endoscopy Hx of colonoscopy (~11/2016) S/P anal fissurectomy H/O hemorrhoidectomy Hx laparoscopic cholecystectomy S/P left oophorectomy H/O partial thyroidectomy (~2016) History of removal of laparoscopic gastric banding device (~2015) History of abdominoplasty History of colonoscopy History of laparoscopic adjustable gastric banding (~2010) History of bilateral breast reduction surgery (~2008) History of hysterectomy Family History Father Diabetes Hypertension Depression Mother Lung cancer Diabetes Mental health disorder Brother HIV (human immunodeficiency virus infection) Depression Diabetes Sister Hypertension Diabetes Mental health disorder Daughter Mental health disorder Son Mental health disorder Social History Household Members: Children Housing: House Do you presently have visiting nurse or other home services: Yes Alcohol intake: current Alcohol intake frequency: holidays/special occasions only Patient Tobacco Use Status: Former Tobacco user e-Cigarette/Vaping Use: Never Used Second Hand Smoke Exposure: No Substance Use Type: Marijuana service: No Current occupational status: disabled Cognitive needs: No Hearing needs: No Vision needs: Yes Review of Systems Const All systems reviewed & are unremarkable except as noted in HPI and below Physical Exam Vital Signs: Last Vital Signs Temp 98.2 F 04/29/24 11:39 Pulse 76 04/29/24 11:39 BP 116/80 04/29/24 11:39 Pulse Ox 97 04/29/24 11:39 BMI result Body Mass Index 31.6 Const General: comfortable and no acute distress Nutritional Appearance: obese Orientation/consciousness: patient oriented x3 HEENT Head: Yes normocephalic Ears: external ears normal and TM's normal bilaterally General nose exam: Normal nasal mucous membranes and turbinates present Face and sinus: Yes sinuses nontender Mouth: moist mucous membranes Throat: Yes posterior oropharynx normal Resp Effort & Inspection: normal respiratory effort, able to speak in complete sentences and Actively coughing Auscultation: no crackles, no rales, rhonchi and wheezes Cardio Rate: regular rate Rhythm: regular rhythm Neuro General: patient oriented x3, gait normal and moves all extremities Psych Speech and movement: Normal speech and movement present Office Procedures Nebulizer Treatment Nebulizer Treatment 61360-Euqechkfg/MDI RX initial, or Nebulizer Subsequent Treatment Office Meds ipratropium 0.5 mg-albuterol 3 mg (2.5 mg base)/3 mL nebulization soln Performing Provider: Deisy Vang NP Performing Location: [facility] Administered by: Deisy Vang NP on 04/29/24 12:31 Dose Route Admin Location Dispensed Lot Number Expiration Date NDC Domestic Cleaner 3 mL inhalation 3 mL 08/09/25 02436-177-93 [employer] Assessment & Plan Assessment & Plan (1) Wheezing on auscultation: Code(s): R06.2 - Wheezing Plan: In office Duo Neb Tx with good symptoms relief. Prednisone for additional 5 days. Advair inhaler, increased the dose. (2) Asthma with acute exacerbation in adult: Code(s): J45.901 - Unspecified asthma with (acute) exacerbation Qualifiers: Asthma persistence: persistent Asthma severity: moderate Qualified Code(s): J45.41 - Moderate persistent asthma with (acute) exacerbation Plan: Added Augeentin x 10 days Continue home Neb Tx 4-6 hours Added Zyrtec BID. Orders: Orders AMB Nebulizer Treatment Today J45.901 - Unspecified asthma with (acute) exacerbation, R06.2 - Wheezing Medications: New prednisone 50 mg PO DAILY 5 tabs 0RF 5 days R06.2 - Wheezing fluconazole 150 mg PO DAILY 5 tabs 0RF J45.41 - Moderate persistent asthma with (acute) exacerbation amoxicillin-pot clavulanate 875-125 mg 1 tab PO BID 20 tabs 0RF 10 days J45.41 - Moderate persistent asthma with (acute) exacerbation fluticasone propion-salmeterol 230-21 mcg/actuation (Advair HFA) administer with spacer 2 inhalations inhalation BID 12 grams 1RF Refilled cetirizine 10 mg PO DAILY PRN 90 tabs 2RF allergy symptoms 90 days J45.41 - Moderate persistent asthma with (acute) exacerbation, R06.2 - Wheezing Coding Level of Care Code Est Pt Level 4 (56619) Diagnoses Wheezing on auscultation R06.2 Moderate persistent asthma with acute exacerbation in adult J45.41 Asthma persistence: persistent Asthma severity: moderate CPT Codes Nebulizer Treatment - Nebulizer Treatment, initial or subsequent: 42559- Nebulizer/MDI RX initial, or Nebulizer Subsequent Treatment ([id number]) Time Spent (min) 20
[2024-04-29 11:39] VITALS: BP 116/80; PULSE 76; TEMP 36.8; O2SAT 97; BMI 31.6
== END 2024-04-29 12:27 | disposition home or self-care (01) ==
PROVIDERS: PCP Physician Assistant; Visit Provider Nurse Practitioner Family
DX: R06.2 Wheezing (principal); J45.901 Unspecified asthma with (acute) exacerbation; J45.41 Moderate persistent asthma with (acute) exacerbation
CPT/HCPCS: 94640; 99214; J7620

== ENCOUNTER 2024-05-08 08:55 | Outpatient (REF) | payer OTHER, SELFPAY ==
--- NOTE | ~2024-05-08 | XR_ITS ---
EXAMINATION: XR CHEST CLINICAL INFORMATION: Bronchitis not specified as acute or chronic. Patient states sickness for multiple weeks, cough, shortness of breath. COMPARISON: 08/17/2023. TECHNIQUE: 2 views of the chest were obtained. FINDINGS: Surgical clips at the thoracic inlet. Heart size is normal. Lung volumes low. There is no gross pneumothorax. Mild dextroscoliosis of the thoracic spine with multilevel degenerative changes. Mild left basilar linear opacities likely represent subsegmental atelectasis. No significant pleural effusion. XR/XR chest 2V IMPRESSION: Mild left basilar linear opacities likely represent subsegmental atelectasis.
== END 2024-05-08 08:56 | disposition home or self-care (01) ==
LOC: HO.XRAY 08:55
PROVIDERS: PCP Physician Assistant; Visit Provider Physician Assistant
DX: J40 Bronchitis, not specified as acute or chronic (principal)
CPT/HCPCS: 71046

== ENCOUNTER 2024-05-17 10:18 | Emergency (ER) | payer OTHER, SELFPAY ==
[2024-05-17] VITALS (7 sets, daily range): BP systolic 111–126; BP diastolic 64–72; PULSE 64–83; RESP 16–18; TEMP 36.6–36.9; O2SAT 98–100; BMI 31.1
--- NOTE | ~2024-05-17 | CT_ITS ---
EXAMINATION: CT ABDOMEN AND PELVIS WITHOUT CONTRAST CLINICAL INFORMATION: Further evaluation of recently described abnormalities with oral contrast. COMPARISON: CT abdomen/pelvis earlier today at 11:20 AM. TECHNIQUE: Multidetector volumetric imaging was performed from the superior aspect of the liver through the pubic symphysis. Sagittal and coronal reformatted images were obtained on the technologist's workstation. No intravenous contrast. Oral contrast was administered. This CT examination was performed using dose optimization techniques as appropriate, variously including the following: *Automated exposure control *Adjustment of mA and/or kV according to patient size (this includes techniques or standardized protocols for targeted exams where dose is matched to indication/reason for exam; i.e. extremities or head) *Use of iterative reconstruction technique DLP: 707 mGy-cm FINDINGS: LUNG BASES: No focal consolidation or pleural effusion. Partially seen calcified mediastinal lymph node in the subcarinal region. LIVER, GALLBLADDER, AND BILIARY TREE: Again noted hepatomegaly with decreased parenchymal attenuation suggesting hepatic steatosis as well as scattered calcified granulomas. Cholecystectomy. As before, mild extrahepatic biliary ductal dilatation that is increased compared to 02/03/2024, CBD measures up to 1.2 cm in diameter, previously 0.7 cm. No significant intrahepatic biliary ductal dilatation. PANCREAS: Unremarkable. SPLEEN: Redemonstration of calcified granulomas. Normal size. ADRENAL GLANDS: Unremarkable. KIDNEYS AND URETERS: Residual IV contrast opacifying the collecting systems and ureters. No nephrolithiasis. No hydronephrosis. No perinephric fat stranding. Redemonstration of simple appearing cyst in the lower right kidney and a few bilateral too small to characterize cortical hypodensities, for which no imaging follow-up is recommended. BLADDER: Opacified with IV contrast. No discrete focal abnormality. No perivesical inflammatory changes. GASTROINTESTINAL TRACT: Oral contrast opacifies the stomach and entirety of the small bowel to the level of terminal ileum without evidence of obstruction. Previously described dilated loops of small bowel in the central abdomen are less prominent with now similar degree of distention throughout the small bowel. No regions of disproportional bowel dilatation. Normal appendix. Mild colonic diverticulosis without significant pericolonic inflammatory changes. Redemonstration of focal hypodensity in the posterior wall of the gastroesophageal junction measuring 2.3 x 1.2 cm (3:18) with associated calcifications. No discrete oral contrast reaches this abnormality, which suggests to be related with a mural lesion. ABDOMINAL WALL: Postsurgical changes in the ventral lower anterior abdominal wall. No significant hernia. Redemonstration of fat necrosis in the soft tissues of the right gluteal region. LYMPH NODES: No lymphadenopathy. VASCULAR: Normal caliber of the abdominal aorta. PELVIC VISCERA: Stable lobulated mass anterior to the vaginal cuff measuring up to 2.5 cm. Hysterectomy. OSSEOUS STRUCTURES: Degenerative changes of the spine predominantly at L4-L5 and L5-S1. No acute or aggressive appearing osseous findings. CT/CT abdomen pelvis wo IV con IMPRESSION: 1. Previously described dilated loops of small bowel in the central abdomen are less prominent with now similar degree of distention throughout the small bowel. Oral contrast reaches the terminal ileum arguing against a small bowel obstruction. 2. Mild extrahepatic biliary ductal dilatation, increased compared to 02/03/2024. As before, further evaluation with MRCP could be obtained as clinically warranted. 3. Redemonstration of a focal hypodensity in the posterior wall of the gastroesophageal junction with associated calcifications. In retrospect this is slightly increase in size compared to 09/13/2020. This could be related with a mural lesion such as GIST, leiomyoma, carcinoid; or scarring sequela of a prior ulcer or postsurgical changes. Evaluation with outpatient upper endoscopy is recommended. 4. Hepatomegaly and hepatic steatosis. 5. Stable lobulated mass anterior to the vaginal cuff.
--- NOTE | ~2024-05-17 | CT_ITS ---
EXAMINATION: CT ABDOMEN AND PELVIS WITH CONTRAST CLINICAL INFORMATION: Upper abdominal pain. COMPARISON: CT abdomen/pelvis 02/03/2024. TECHNIQUE: Multidetector volumetric images were obtained from the superior aspect of the liver through the pubic symphysis following administration 85 mL of Omnipaque 350 intravenous contrast. Sagittal and coronal reformatted images were obtained on the technologist's workstation. Oral contrast: No This CT examination was performed using dose optimization techniques as appropriate, variously including the following: *Automated exposure control *Adjustment of mA and/or kV according to patient size (this includes techniques or standardized protocols for targeted exams where dose is matched to indication/reason for exam; i.e. extremities or head) *Use of iterative reconstruction technique DLP: 751 mGy-cm FINDINGS: LUNG BASES: Calcified granuloma in the left upper lobe. No focal consolidation or pleural effusion. LIVER, GALLBLADDER, AND BILIARY TREE: The liver is enlarged measuring 19.8 cm craniocaudally and demonstrates decreased attenuation of the parenchyma suggesting hepatic steatosis. Scattered calcified granulomas are seen. Cholecystectomy. Increased extrahepatic biliary ductal dilatation compared to 02/03/2024, the CBD measures up to 1 cm in diameter, previously 0.7 cm. No discrete calcified choledocholithiasis or obstructive abnormality. No significant intrahepatic biliary ductal dilatation. PANCREAS: Unremarkable. SPLEEN: Multiple granulomas. Normal size. ADRENAL GLANDS: Unremarkable. KIDNEYS AND URETERS: The kidneys are normal in size, shape, and attenuation. Simple appearing cyst in the lower right kidney and a few bilateral too small to characterize cortical hypodensities, for which no imaging follow-up is recommended. No hydronephrosis, hydroureter, or calculi seen. No perinephric stranding. BLADDER: Unremarkable. GASTROINTESTINAL TRACT: Compared to 02/03/2024, unchanged focal low density abnormality in the posterior wall of the gastroesophageal junction measuring 2.3 x 1.2 x 1.9 cm with internal calcific densities (3:20 and 6:50). Redemonstration of wall thickening of the proximal stomach with mild hyperemia. Nonspecific dilatation of a few loops of small bowel in the central abdomen measuring up to 3 cm in diameter with air-fluid levels and some distal and proximal fecalization. Normal appendix. Colonic diverticulosis without significant pericolonic inflammatory changes. ABDOMINAL WALL: Lower ventral abdominal wall postoperative changes. No significant hernia. Redemonstration of fat necrosis in the soft tissues of the right gluteal region measuring 3.4 cm (3:74). LYMPH NODES: No lymphadenopathy. VASCULAR: Normal caliber of the abdominal aorta. PELVIC VISCERA: Stable lobulated mass anterior to the vaginal cuff measuring up to 2.5 cm (3:84). Hysterectomy. OSSEOUS STRUCTURES: Degenerative changes at L4-L5 and L5-S1. No acute or aggressive appearing osseous findings. CT/CT abdomen pelvis w IV con IMPRESSION: 1. Nonspecific dilatation of a few loops of small bowel in the central abdomen. Differential considerations include focal ileus, enteritis or early bowel obstruction. Recommend follow-up imaging as clinically warranted. 2. Increased extrahepatic biliary ductal dilatation compared to 02/03/2024. Further evaluation with MRCP could be obtained as clinically warranted. 3. Stable focal hypodensity with internal calcific densities in the posterior wall of the gastroesophageal junction, findings may be associated with an ulcer or indeterminate wall lesion. Further characterization with upper endoscopy is recommended. There is also redemonstration of some degree of gastric wall thickening and hyperemia suspicious for gastritis. 4. Hepatomegaly and hepatic steatosis. 5. Stable lobulated mass anterior to the vaginal cuff.
--- NOTE | 2024-05-17 10:34 | PC.NURSE ---
Reports diffuse ABD pain, nausea and diarrhea since [place]. Pain is 8/10, diffuse, sharp and aching. Reports recent ABX use and starting metformin and ozempic. Also has s/s of chills and headache. Denies CP or SOB. Alert and oriented, breathing even and unlabored, skin warm and dry. VSS. Noted to have frequent burping.
--- NOTE | 2024-05-17 10:39 | ED_ITS ---
HPI - Abdominal Pain General Chief Complaint: Abdominal Pain Stated Complaint: abd pain Time Seen by Provider: 05/17/24 10:29 Source: patient Mode of arrival: ambulatory Limitations: no limitations History of Present Illness HPI narrative: This is 59 years old patient presented to the emergency department complaining upper abdominal pain- MD elicited complaint: abdominal pain Pertinent past history: other (gastritis) Onset (ago): day(s) (2) Pain Consistency: constant Location: epigastric Severity: moderate Quality: cramping Radiation: none Migration to: no migration Related Data Home Medications ?Medication ?Instructions ?Recorded ?Confirmed citalopram 20 mg tablet 20 mg PO DAILY@0908/19/20 03/05/24 clonazepam 1 mg tablet 1 mg PO DAILY@09 Anxiety 12/13/20 03/05/24 zolpidem 10 mg tablet 10 mg PO BEDTIME 04/04/22 03/05/24 clonazepam 2 mg tablet 2 mg PO BEDTIME 01/30/24 03/05/24 cholecalciferol (vitamin D3) 25 25 mcg PO QPM 02/03/24 03/05/24 mcg (1,000 unit) tablet gabapentin 300 mg capsule 300 mg PO DAILY@0902/03/24 03/05/24 telmisartan 20 mg tablet (Micardis) 20 mg PO DAILY@0902/03/24 03/05/24 tramadol 50 mg tablet 50 mg PO DAILY PRN Pain 02/03/24 03/05/24 doxycycline hyclate 100 mg tablet 100 mg PO BID 04/29/24 prednisone 20 mg tablet 20 mg PO BID 04/29/24 Previous Rx's ?Medication ?Instructions ?Recorded atorvastatin 40 mg tablet 40 mg PO BEDTIME #90 tabs 09/18/23 albuterol sulfate 2.5 mg/3 mL 2.5 mg (3 mL) inhalation Q6H PRN 11/05/23 (0.083 %) solution for nebulization shortness of breath or wheezing 30 days #180 mL albuterol sulfate 90 mcg/actuation 2 puff inhalation QID 30 days #8.5 11/05/23 aerosol inhaler grams famotidine 40 mg tablet (Pepcid) 40 mg PO BEDTIME 90 days #90 tabs 11/05/23 fenofibrate nanocrystallized 48 mg 48 mg PO DAILY #90 tabs 11/05/23 tablet metformin 1,000 mg tablet 1,000 mg PO DAILY 90 days #90 tabs 11/05/23 blood sugar diagnostic (FreeStyle #50 ea 11/13/23 Precision Steffen Strips) blood-glucose meter (FreeStyle #1 ea 11/13/23 Precision Steffen Meter) sucralfate 1 gram tablet 1 g PO QIDACHS #480 tabs 02/05/24 pantoprazole 40 mg tablet,delayed 40 mg PO BID 30 days #60 tabs 02/13/24 release acetaminophen 650 mg 650 mg PO Q12H 30 days #60 tabs 03/04/24 tablet,extended release (Tylenol Arthritis Pain) semaglutide 0.25 mg or 0.5 mg (2 0.25 mg (0.368 mL) subcut QWEEK 4 03/04/24 mg/3 mL) subcutaneous pen injector weeks #3 mL (Ozempic) semaglutide 1 mg/dose (4 mg/3 mL) 1 mg (0.75 mL) subcut QWEEK 4 04/20/24 subcutaneous pen injector (Ozempic) weeks #3 mL amoxicillin 875 mg-potassium 1 tab PO BID 10 days #20 tabs 04/29/24 clavulanate 125 mg tablet cetirizine 10 mg tablet 10 mg PO DAILY PRN allergy 04/29/24 symptoms 90 days #90 tabs fluconazole 150 mg tablet 150 mg PO DAILY #5 tabs 04/29/24 fluticasone propionate 230 2 inh inhalation BID #12 grams 04/29/24 mcg-salmeterol 21 mcg/actuation HFA inhaler (Advair HFA) prednisone 50 mg tablet 50 mg PO DAILY 5 days #5 tabs 04/29/24 pyridoxine (vitamin B6) 50 mg 100 mg (2 x 50 mg) PO DAILY 90 05/02/24 tablet days #180 tabs Allergies Allergy/AdvReac Type Severity Reaction Status Date / Time seafood Allergy Unknown Unknown Verified 05/17/24 10:28 dulaglutide [From Trulicity] AdvReac Intermediate Diarrhea Verified 04/29/24 11:39 metformin AdvReac Intermediate GAstric Verified 04/29/24 11:39 upset lisinopril AdvReac Unknown cough Verified 04/29/24 11:39 Review of Systems Review of Systems Yes all other systems are reviewed and are negative Reports system reviewed and no additional complaints, except as documented Respiratory: Reports no additional respiratory complaints Gastrointestinal: Reports as per [facility] Past Medical History Attestation statement: The following information was validated with the patient. Medical History History of panic attacks Asthma Anal fissure Anal pain Pulmonary nodules Hx of renal calculi Flu-like symptoms Spondylosis of lumbar spine Fibromyalgia Dyslipidemia Obesity, Class I, BMI 30-34.9 Nephrolithiasis Recurrent Clostridioides difficile infection Hx of thyroid nodule Back pain Arthritis Depression Anxiety Type 2 diabetes mellitus HLD (hyperlipidemia) GERD (gastroesophageal reflux disease) HTN (hypertension) Surgical History History of esophagogastroduodenoscopy (EGD) Hx of cosmetic surgery Hx of tonsillectomy Hx of section Hx of lithotripsy Hx of endoscopy Hx of colonoscopy (~11/2016) S/P anal fissurectomy H/O hemorrhoidectomy Hx laparoscopic cholecystectomy S/P left oophorectomy H/O partial thyroidectomy (~2016) History of removal of laparoscopic gastric banding device (~2015) History of abdominoplasty History of colonoscopy History of laparoscopic adjustable gastric banding (~2010) History of bilateral breast reduction surgery (~2008) History of hysterectomy Family History Family History Father Diabetes Hypertension Depression Mother Lung cancer Diabetes Mental health disorder Brother HIV (human immunodeficiency virus infection) Depression Diabetes Sister Hypertension Diabetes Mental health disorder Daughter Mental health disorder Son Mental health disorder Social History Social History Household Members: Children Housing: House Do you presently have visiting nurse or other home services: Yes Alcohol intake: current Alcohol intake frequency: holidays/special occasions only Patient Tobacco Use Status: Former Tobacco user Smoked in Last 30 Days: No e-Cigarette/Vaping Use: Never Used Second Hand Smoke Exposure: No Use of substances other than those prescribed or required for medical reasons: No Substance Use Type: Marijuana Advance Directives: Yes Advance Directives on File: Yes Advance Directives Date on File: 02/06/24 service: No Current occupational status: disabled Cognitive needs: No Hearing needs: No Vision needs: Yes Physical Exam ED Vital Signs: Vital Signs - 24 hr 05/17/24 10:26 05/17/24 10:30 05/17/24 11:06 Temperature 98.2 F Pulse Rate 78 83 Respiratory Rate 18 18 18 Blood Pressure 126/72 Pulse Oximetry 99 99 Oxygen Delivery Method Room Air Room Air 05/17/24 13:08 05/17/24 14:48 05/17/24 16:00 Temperature 97.8 F 98.0 F Pulse Rate 66 64 Respiratory Rate 18 17 16 Blood Pressure 122/69 119/64 Pulse Oximetry 99 100 Oxygen Delivery Method Room Air Room Air BMI result Body Mass Index 31.1 Const General: cooperative Nutritional Appearance: average body habitus Orientation/consciousness: patient oriented x3 Limitations: no limitations HENMT Head: Yes normal to inspection General nose exam: Normal external nose present Mouth: Normal oral and palatal mucosa present Neck Neck: Yes normal visual inspection Chest Chest palpation & inspection: normal inspection of the chest Resp Effort & Inspection: normal respiratory effort Auscultation: clear to auscultation bilaterally Cardio Jugular venous distension: no JVD Rate: regular rate Rhythm: regular rhythm GI Inspection: Yes normal to inspection Palpation (GI): Soft to palpation Percussion: Yes normal to percussion Auscultation: normal bowel sounds Skin General skin exam: no rashes or lesions noted and elasticity normal Neuro General: patient oriented x3 Course Reevaluation(s) Reevaluation #1: Case was d/w Dr Samson CT with IV contrast seen by Dr Samson who reccomed ct with oral contrast ,at this time pending,signed out to Dr Campos Time: 16:20 Medical Decision Making Medical Decision Making [facility] Narrative: Patient presented with upper abdominal pain will obtain imaging check lab reassess Differential Diagnosis Differential Diagnoses: The differential diagnosis associated with the presentation includes Acute pancreatitis/peptic ulcer disease/gastritis Admission/Observation Consideration of admission/observation: Escalation of care including admission/observation considered Consult Healthcare Provider Management of the patient was discussed with: [employer] Dr Samson Lab Data 05/17/24 10:43 05/17/24 10:43 Labs: Lab Results 05/17/24 05/17/24 Range/Units 10:43 11:41 WBC 5.6 (4.8-10.8) X10*3/uL RBC 4.99 (4.20-5.50) X10*6/uL Hgb 14.6 (12.0-16.0) g/dl Hct 41.2 (37.0-47.0) % MCV 82.6 (80.0-98.0) fL MCH 29.3 (27.0-33.0) pg MCHC 35.4 H (31.0-35.0) g/dl RDW 11.9 (11.0-16.0) % Plt Count 259 (160-400) X10*3/uL MPV 8.4 L (9.4-12.3) fL Immature Gran % (Auto) 0.2 (0.0-0.4) % Neut % (Auto) 51.2 (45-73) % Lymph % (Auto) 38.0 (20-40) % [place] % (Auto) 7.2 (2-11) % Eos % (Auto) 2.9 (0-4) % Baso % (Auto) 0.5 (0-2) % Lymph # (Auto) 2.1 (1.2-4.9) X10*3/uL [place] # (Auto) 0.4 (0.1-1.2) X10*3/uL Eos # (Auto) 0.2 (0.0-0.4) X10*3/uL Baso # (Auto) 0.0 (0.0-0.2) X10*3/uL Abs Immat Gran (auto) 0.01 (0.00-0.03) X10*3/uL Absolute Neuts (auto) 2.9 (2.0-8.3) x10*3/uL Absolute Nucleated RBC 0.000 (0.0-0.012) X10*3/uL Nucleated RBC % (auto) 0.0 (0.0-0.2) /100WBC Sodium 138 (135-145) mmol/L Potassium 3.8 (3.3-5.1) mmol/L Chloride 106 (96-108) mmol/L Carbon Dioxide 22 (22-29) mmol/L Anion Gap 14 (12-20) BUN 11 (9-16) mg/dL Creatinine 0.78 (0.5-1.4) mg/dL Estim Creat Clear Calc 87.5 Estimated GFR > 60 Random Glucose 154 H (60-115) mg/dL Calcium 10.0 (8.4-10.2) mg/dL Total Bilirubin 0.8 (0.0-1.0) mg/dL AST 16 (5-31) U/L ALT 26 (0-31) U/L Alkaline Phosphatase 59 (39-117) U/L Total Protein 7.3 (6.5-8.0) g/dL Albumin 4.4 (3.5-5.0) g/dL Lipase 50 (8-78) U/L Urine Color Yellow Urine Appearance Clear Urine pH 7.0 (5.0-9.0) Ur Specific [place] >= 1.030 H (1.005-1.025) Urine Protein Negative (Neg-Trace) mg/dL Urine Glucose (UA) Negative (Negative) mg/dL Urine Ketones Negative (Negative) mg/dL Urine Blood Negative (Negative) Urine Nitrite Negative (Negative) Ur Leukocyte Esterase Negative (Negative) Urine RBC 0-2 (0-2) /HPF Urine WBC 0-5 (0-5) /HPF Ur Squamous Epith Cells 0-2 (0-2) /HPF Urine Bacteria None Seen (None Seen) Hyaline Casts 0-2 (0-2) /LPF Medications Administered Discontinued Medications Generic Name Dose Route Start Last Admin Trade Name Freq PRN Reason Stop Dose Admin Diatrizoate Meglum/Diatrizoate Sod 30 ml 05/17/24 12:59 05/17/24 12:59 Diatrizoate Meglumine, Sodium 30 Ml Solution PO 05/17/24 13:00 30 ml ONCE ONE Administration Diphenhydramine HCl 12.5 mg 05/17/24 15:44 05/17/24 15:52 Diphenhydramine Hcl 50 Mg/Ml Vial IVPUSH 05/17/24 15:45 12.5 mg ONCE ONE Administration Hydromorphone HCl 0.5 mg 05/17/24 12:57 05/17/24 13:08 Hydromorphone Hcl 0.5 Mg/0.5 Ml Syringe IVPUSH 05/17/24 12:58 0.5 mg ONCE ONE Administration Protocol Sodium Chloride 1,000 mls @ 999 mls/hr 05/17/24 10:45 05/17/24 13:08 Ns IVCONT 05/17/24 11:45 Infused .Q1H1M ELIA Infusion Iohexol 100 ml 05/17/24 11:24 05/17/24 11:27 Iohexol 350 Mg/Ml 100 Ml Infus..Btl IV 05/17/24 11:25 85 ml ONCE ONE Administration Iohexol 100 ml 05/17/24 14:31 05/17/24 14:32 Iohexol 350 Mg/Ml 100 Ml Infus..Btl IV 05/17/24 14:32 100 ml ONCE ONE Administration Metoclopramide HCl 10 mg 05/17/24 15:44 05/17/24 15:52 Metoclopramide Hcl 10 Mg/2 Ml Vial IVPUSH 05/17/24 15:45 10 mg ONCE ONE Administration Morphine Sulfate 4 mg 05/17/24 10:55 05/17/24 11:06 Morphine Sulfate 4 Mg/Ml Cartridge IVPUSH 05/17/24 10:56 4 mg ONCE ONE Administration Protocol Ondansetron HCl 4 mg 05/17/24 10:37 05/17/24 10:46 Ondansetron Hcl 4 Mg/2 Ml Vial IVPUSH 05/17/24 10:38 4 mg ONCE ONE Administration Pantoprazole Sodium 40 mg 05/17/24 10:37 05/17/24 10:46 Pantoprazole Sodium 40 Mg/10 Ml Vial IVPUSH 05/17/24 10:38 Not Given ONCE ONE Discharge Plan Discharge Clinical Impression: Abdominal pain Qualifiers: Abdominal location: epigastric Qualified Code(s): R10.13 - Epigastric pain Patient Disposition: Still a Patient Prescriptions: No Action (DME) FreeStyle Precision Steffen Strips Strip See Rx Instructions .ROUTE .MEDSUPPLY Qty: 50 6RF Rx Instructions: As directed once daily (DME) blood-glucose meter [FreeStyle Precision Steffen Meter] Misc See Rx Instructions .Route Qty: 1 0RF Rx Instructions: As directed Ozempic 1 mg/dose (4 mg/3 mL) pen injector 1 mg subcut QWEEK 28 Days Qty: 3 2RF pyridoxine (vitamin B6) 50 mg tablet 100 mg PO DAILY 90 Days Qty: 180 2RF tramadol 50 mg tablet 50 mg PO DAILY PRN (Reason: Pain) telmisartan [Micardis] 20 mg tablet 20 mg PO DAILY@0900 cholecalciferol (vitamin D3) 25 mcg (1,000 unit) tablet 25 mcg PO QPM gabapentin 300 mg Capsule 300 mg PO DAILY@0900 sucralfate 1 gram Tablet 1 g PO QIDACHS Qty: 480 0RF albuterol sulfate 90 mcg/actuation HFA aerosol inhaler 2 puff inhalation QID 30 Days Qty: 8.5 3RF albuterol sulfate 2.5 mg /3 mL (0.083 %) solution for nebulization 2.5 mg inhalation Q6H PRN (Reason: shortness of breath or wheezing) 30 Days Qty: 180 2RF fenofibrate nanocrystallized 48 mg tablet 48 mg PO DAILY Qty: 90 2RF famotidine [Pepcid] 40 mg tablet 40 mg PO BEDTIME 90 Days Qty: 90 2RF metformin 1,000 mg tablet 1,000 mg PO DAILY 90 Days Qty: 90 2RF Hold Instructions: Doctor's Order atorvastatin 40 mg tablet 40 mg PO BEDTIME Qty: 90 2RF clonazepam 2 mg tablet 2 mg PO BEDTIME acetaminophen [Tylenol Arthritis Pain] 650 mg tablet extended release 650 mg PO Q12H 30 Days Qty: 60 3RF Ozempic 0.25 mg or 0.5 mg (2 mg/3 mL) pen injector 0.25 mg subcut QWEEK 28 Days Qty: 3 1RF Rx Instructions: for 4 weeks doxycycline hyclate 100 mg tablet 100 mg PO BID prednisone 20 mg tablet 20 mg PO BID fluconazole 150 mg tablet 150 mg PO DAILY Qty: 5 0RF prednisone 50 mg tablet 50 mg PO DAILY 5 Days Qty: 5 0RF amoxicillin-pot clavulanate 875-125 mg tablet 1 tab PO BID 10 Days Qty: 20 0RF fluticasone propion-salmeterol [Advair HFA] 230-21 mcg/actuation HFA aerosol inhaler 2 inh inhalation BID Qty: 12 1RF Rx Instructions: administer with spacer cetirizine 10 mg tablet 10 mg PO DAILY PRN (Reason: allergy symptoms) 90 Days Qty: 90 2RF clonazepam 1 mg tablet 1 mg PO DAILY@0900 Patient Comments: 1 tab in the morning and 2 tablets at bedtime zolpidem 10 mg tablet 10 mg PO BEDTIME citalopram 20 mg tablet 20 mg PO DAILY@0900 pantoprazole 40 mg tablet,delayed release (DR/EC) 40 mg PO BID 30 Days Qty: 60 3RF Print Language: Mauritian
[2024-05-17] MEDS: ondansetron HCL 4 MG/2 ML VIAL IVPUSH (10:46)
[2024-05-17 10:47] LABS: MANUAL DIFF FLAG NO
[2024-05-17] MEDS: 0.9 % Sodium Chloride 1,000 ML 999 ML IVCONT (10:47)
[2024-05-17 10:48] LABS: Basophils Percent Auto 0.5 % (0-2); Eosinophils Absolute Auto 0.2 X10*3/uL (0.0-0.4); Eosinophils Percent Auto 2.9 % (0-4); Hematocrit 41.2 % (37.0-47.0); Hemoglobin 14.6 g/dl (12.0-16.0); Imm Gran Abs Auto 0.01 X10*3/uL (0.00-0.03); Imm Gran Pct Auto 0.2 % (0.0-0.4); Lymphocytes Absolute Auto 2.1 X10*3/uL (1.2-4.9); Mean Corpuscular HGB Conc 35.4 g/dl (31.0-35.0); Mean Corpuscular Hemoglobin 29.3 pg (27.0-33.0); Mean Corpuscular Volume 82.6 fL (80.0-98.0); Mean Platelet Volume 8.4 fL (9.4-12.3); Monocytes Absolute Auto 0.4 X10*3/uL (0.1-1.2); Monocytes Percent Auto 7.2 % (2-11); Neutrophils Absolute Auto 2.9 x10*3/uL (2.0-8.3); Neutrophils Percent Auto 51.2 % (45-73); Platelet Count 259 X10*3/uL (160-400); Red Blood Count 4.99 X10*6/uL (4.20-5.50); Red Cell Distribution Width 11.9 % (11.0-16.0); White Blood Count 5.6 X10*3/uL (4.8-10.8)
--- NOTE | 2024-05-17 10:50 | PC.NURSE ---
Pt reports she took 40mg of Protonix approx 1.5 hours ago, IV protonix held per physician.
[2024-05-17] MEDS: Morphine Sulfate 4 MG/ML CARTRIDGE IVPUSH (11:06)
[2024-05-17 11:09] LABS: Alanine Aminotransferase 26 U/L (0-31); Albumin Level 4.4 g/dL (3.5-5.0); Alkaline Phosphatase 59 U/L (39-117); Anion Gap 14 (12-20); Aspartate Amino Transferase 16 U/L (5-31); Bilirubin Total 0.8 mg/dL (0.0-1.0); Blood Urea Nitrogen 11 mg/dL (9-16); Carbon Dioxide 22 mmol/L (22-29); Chloride 106 mmol/L (96-108); Creatinine Clr Calc Pharmacy 87.5; Estimated Glomerular Filt Rate > 60; Glucose Random 154 mg/dL (60-115); Lipase 50 U/L (8-78); Potassium 3.8 mmol/L (3.3-5.1); Sodium 138 mmol/L (135-145); Total Protein 7.3 g/dL (6.5-8.0)
[2024-05-17] MEDS: iohexoL 350 MG/ML 100 ML INFUS..BTL IV ×2 (11:27→14:32)
[2024-05-17 11:46] LABS: Appearance Urine Clear; Color Urine Yellow; Glucose Urine UA Negative (Negative); Leukocyte Esterase Urine Negative (Negative); Nitrite Urine Negative (Negative); Specific Gravity - Urine >= 1.030 (1.005-1.025); Urine Blood Negative (Negative); Urine Ketones Negative (Negative); Urine Protein Negative (Neg-Trace)
[2024-05-17 11:51] LABS: Bacteria Urine None Seen (None Seen); Hyaline Casts Urine 0-2 /LPF (0-2); RBC Urine 0-2 /HPF (0-2); Squamous Epithelial Cell Urine 0-2 /HPF (0-2); WBC Urine 0-5 /HPF (0-5)
[2024-05-17] MEDS: Diatrizoate Meglumine, Sodium 30 ML SOLUTION PO (12:59)
[2024-05-17] MEDS: HYDROmorphone HCl 0.5 MG/0.5 ML SYRINGE IVPUSH (13:08)
[2024-05-17] MEDS: diphenhydrAMINE HCL 50 MG/ML VIAL 12.5 MG IVPUSH (15:52)
[2024-05-17] MEDS: Metoclopramide HCl 10 MG/2 ML VIAL IVPUSH (15:52)
== END 2024-05-17 17:10 | disposition home or self-care (01) ==
PROVIDERS: Emergency Medicine; Emergency Provider Emergency Medicine; PCP Physician Assistant
DX: K29.00 Acute gastritis without bleeding (principal); R10.13 Epigastric pain; R25.2 Cramp and spasm; I10 Essential (primary) hypertension; R11.2 Nausea with vomiting, unspecified; Z79.899 Other long term (current) drug therapy
CPT/HCPCS: 36415; 74176; 74177; 80053; 81001; 83690; 85025; 96360; 96374; 96375; 99284; 99285; J1170; J1200; J2270; J2405; J2765; Q9967

== ENCOUNTER 2024-05-22 08:59 | Outpatient (AMB) | payer OTHER, SELFPAY ==
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
[2024-05-22 09:04] VITALS: BP 116/80; PULSE 96; TEMP 36.6; O2SAT 98; BMI 31.1
== END 2024-05-22 10:04 | disposition home or self-care (01) ==
PROVIDERS: PCP Physician Assistant; Visit Provider Nurse Practitioner Family
DX: M54.2 Cervicalgia (principal); V89.2XXA Person injured in unspecified motor-vehicle accident, traffic, initial encounter; Z04.3 Encounter for examination and observation following other accident
CPT/HCPCS: 99213

== ENCOUNTER 2024-05-22 09:32 | Outpatient (REF) | payer OTHER, SELFPAY ==
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
== END 2024-05-22 09:33 | disposition home or self-care (01) ==
LOC: HO.HMGCX 09:32
PROVIDERS: PCP Physician Assistant; Visit Provider Nurse Practitioner Family
DX: M50.321 Other cervical disc degeneration at C4-C5 level (principal); V89.2XXD Person injured in unspecified motor-vehicle accident, traffic, subsequent encounter
CPT/HCPCS: 72040; 72072

== ENCOUNTER 2024-05-22 12:14 | Day surgery (SDC) | payer OTHER, SELFPAY ==
[2024-05-22 13:51] VITALS: BMI 31.2
[2024-05-22 14:00] VITALS: BP 125/79; PULSE 81; RESP 16; TEMP 36.2; O2SAT 96
[2024-05-22 14:08] LABS: Glucose, Whole Blood 87 mg/dL (60-115)
[2024-05-22] MEDS: Lactated Ringers 1,000 ML 50 ML IVCONT (14:14)
--- NOTE | 2024-05-22 14:45 | MHC.SHP ---
Pre-Procedural Eval Section A - 24 Hr Update-Section A only Date of Service: 05/22/24 The patient is an INPATIENT: No The patient has been examined within 24 hours of the surgical procedure. The History & Physical has been completed within 30 days and I have reviewed it.: No Section B - Complete if H&P > 30 days Chief Complaint: abnormal CT scan of the stomach Relevant Family History (Specify if Yes): No Relevant Social History: Tobacco Use (Former smoker) Present Medications: see Short Stay Collaborative assessment Medical History: Significant History (Hx of thyroid nodule Back pain Arthritis Depression Anxiety Type 2 diabetes mellitus HLD (hyperlipidemia) GERD (gastroesophageal reflux disease) HTN (hypertension)) History of Previous Operations: Relevant previous surgery/procedure and date(s) (History of esophagogastroduodenoscopy (EGD) Hx of cosmetic surgery Hx of tonsillectomy Hx of section Hx of lithotripsy Hx of endoscopy Hx of colonoscopy (~11/2016) S/P anal fissurectomy H/O hemorrhoidectomy Hx laparoscopic cholecystectomy S/P left oophorectomy H/O partial thyroidectomy (~) Allergies: Allergies Allergy/AdvReac Type Severity Reaction Status Date / Time seafood Allergy Unknown Unknown Verified 05/22/24 09:02 dulaglutide [From Trulicity] AdvReac Intermediate Diarrhea Verified 05/22/24 09:02 metformin AdvReac Intermediate GAstric Verified 05/22/24 09:02 upset lisinopril AdvReac Unknown cough Verified 05/22/24 09:02 Review of Systems Sugical H&P ROS: Negative: Constitution, Cardiovascular, Respiratory and Gastrointestinal Exam Surgical H&P Exam: Normal: Heart, Normal: Lungs, Normal: Extremities and Normal: Abdomen Plan Diagnosis/Plan: Change (proceed with EGD ) I have reviewed the history and physical and performed a pertinent physical examination on my patient. No changes have occurred unless specified. Time Spent With Patient Time: Total time managing care of this patient today ____ minutes.
--- NOTE | 2024-05-22 15:33 | HO.ANESPROP2 ---
HPI - Anesthesia Eval Consult details Narrative: for EGD, PMFSH Active Problems Active Problems: All Active Problems Common bile duct dilatation (Acute) Hospital discharge follow-up (Acute) Plantar fasciitis, bilateral (Acute) Pelvic pain (Acute) Stress incontinence (Acute) Esophageal spasm (Acute) Plantar fasciitis of left foot (Acute) Nephrolithiasis (Acute) Hematuria (Acute) Renal colic (Acute) Epigastric pain (Acute) Schatzki's ring (Acute) Colon cancer screening (Acute) Somatic dysfunction of right sacroiliac joint (Acute) UTI (urinary tract infection) (Acute) Screening for HIV (human immunodeficiency virus) (Acute) Screening for STD (sexually transmitted disease) (Acute) Annual physical exam (Acute) Sciatica associated with disorder of lumbar spine (Acute) Lumbar radiculopathy (Acute) Migraines (Acute) Abdominal bloating (Acute) Bad breath (Acute) Dysphagia, pharyngoesophageal phase (Acute) Acute sinusitis (Acute) Diarrhea (Acute) Coxalgia (Acute) Abdominal pain (Acute) Gastritis (Acute) C. difficile diarrhea (Acute) Upper respiratory infection (Acute) Urinary tract infection (Acute) Asthma (Acute) Screening for STD (sexually transmitted disease) (Acute) Annual physical exam (Acute) MDD (major depressive disorder), recurrent episode, moderate (Acute) EMIL (generalized anxiety disorder) (Acute) Hemorrhoids (Acute) Swelling of toe of right foot (Acute) Somnolence, daytime (Acute) Exacerbation of asthma (Acute) Cough (Acute) Yeast infection (Acute) Calcified granuloma of lung (Acute) Pre-op evaluation (Acute) Asthma (Acute) Abdominal fullness in left flank (Acute) Encounter for surgical aftercare following surgery on the skin and subcutaneous tissue (Acute) THOMAS (obstructive sleep apnea) (Acute) Anemia (Acute) Nephrolithiasis (Acute) Drug induced constipation (Acute) Chest discomfort (Acute) Bronchitis (Acute) GERD (gastroesophageal reflux disease) (Acute) Obese (Acute) Pain in right leg (Acute) Bacterial conjunctivitis of both eyes (Acute) Left leg pain (Acute) Pre-op evaluation (Acute) Chronic diarrhea (Acute) Clostridioides difficile infection (Acute) Anal fissure (Acute) Anal pain (Acute) Pulmonary nodules (Acute) Flu-like symptoms (Acute) Spondylosis of lumbar spine (Acute) Fibromyalgia (Acute) Type 2 diabetes mellitus (Acute) Dyslipidemia (Acute) HTN (hypertension) (Acute) Obesity, Class I, BMI 30-34.9 (Acute) Recurrent Clostridioides difficile infection (Acute) HLD (hyperlipidemia) (Acute) Past Medical History Medical History History of panic attacks Asthma Anal fissure Anal pain Pulmonary nodules Hx of renal calculi Flu-like symptoms Spondylosis of lumbar spine Fibromyalgia Dyslipidemia Obesity, Class I, BMI 30-34.9 Nephrolithiasis Recurrent Clostridioides difficile infection Hx of thyroid nodule Back pain Arthritis Depression Anxiety Type 2 diabetes mellitus HLD (hyperlipidemia) GERD (gastroesophageal reflux disease) HTN (hypertension) Family History Family History Father Diabetes Hypertension Depression Mother Lung cancer Diabetes Mental health disorder Brother HIV (human immunodeficiency virus infection) Depression Diabetes Sister Hypertension Diabetes Mental health disorder Daughter Mental health disorder Son Mental health disorder Family history of problems with anesthesia: No Surgical History Surgical History History of esophagogastroduodenoscopy (EGD) Hx of cosmetic surgery Hx of tonsillectomy Hx of section Hx of lithotripsy Hx of endoscopy Hx of colonoscopy (~11/2016) S/P anal fissurectomy H/O hemorrhoidectomy Hx laparoscopic cholecystectomy S/P left oophorectomy H/O partial thyroidectomy (~2016) History of removal of laparoscopic gastric banding device (~2015) History of abdominoplasty History of colonoscopy History of laparoscopic adjustable gastric banding (~2010) History of bilateral breast reduction surgery (~2008) History of hysterectomy History of Problems with Anesthesia: No Social History Social History Household Members: Children Housing: House Do you presently have visiting nurse or other home services: Yes Alcohol intake: current Alcohol intake frequency: holidays/special occasions only Patient Tobacco Use Status: Former Tobacco user e-Cigarette/Vaping Use: Never Used Second Hand Smoke Exposure: No Use of substances other than those prescribed or required for medical reasons: Yes Substance Use Type: Marijuana Substance Use Type Other:: OCCASIONAL GUMMIE Are you DNR?: No Advance Directives: No Advance Directives Information Provided: Yes Advance Directives Date on File: 02/06/24 service: No Current occupational status: disabled Cognitive needs: No Hearing needs: No Vision needs: Yes Meds Allergies Allergy/AdvReac Type Severity Reaction Status Date / Time seafood Allergy Unknown Unknown Verified 05/22/24 09:02 [facility] AdvReac Intermediate Diarrhea Verified 05/22/24 09:02 metformin AdvReac Intermediate GAstric Verified 05/22/24 09:02 upset lisinopril AdvReac Unknown cough Verified 05/22/24 09:02 Active Medications: Current Medications Lactated Ringer's (Lr) 1,000 mls @ 50 mls/hr IVCONT .Q20H ELIA Last Admin: 05/22/24 14:14 Dose: 50 mls/hr Home Medications ?Medication ?Instructions ?Recorded ?Confirmed ?Last Taken ?Type citalopram 20 mg tablet 20 mg PO DAILY@0900 08/19/20 03/05/24 05/22/24 History clonazepam 1 mg tablet 1 mg PO DAILY@09 Anxiety 12/13/20 03/05/24 05/22/24 History zolpidem 10 mg tablet 10 mg PO BEDTIME 04/04/22 03/05/24 Unknown History clonazepam 2 mg tablet 2 mg PO BEDTIME 01/30/24 03/05/24 02/02/24 History cholecalciferol (vitamin D3) 25 25 mcg PO QPM 02/03/24 03/05/24 02/02/24 History mcg (1,000 unit) tablet gabapentin 300 mg capsule 300 mg PO DAILY@0902/03/24 03/05/24 02/02/24 History telmisartan 20 mg tablet (Micardis) 20 mg PO DAILY@0902/03/24 03/05/24 02/02/24 History tramadol 50 mg tablet 50 mg PO DAILY PRN Pain 02/03/24 03/05/24 Unknown History Exam Height,Weight and Vital Signs: Height 5 ft 6 in Weight 87.657 kg Last Vital Signs Temp 97.2 F 05/22/24 14:00 Pulse 81 05/22/24 14:00 Resp 16 05/22/24 14:00 BP 125/79 05/22/24 14:00 Pulse Ox 96 05/22/24 14:00 O2 Del Method Room Air 05/22/24 14:00 Pertinent Lab Results Pertinent Lab Results: Laboratory Tests 05/22/24 14:04 POC Glucose 87 Airway Mallampati Class: II TM Dist: <=3cm Neck ROM: Full Loose/Missing/Broken Teeth: No Heart: ok Lungs: ok Assessment and Plan Assessment Anesthesia Assessment: Anesthesia Plan Discussed and Chart Reviewed Final Anesthetic Review Family History of Problems with Anesthesia: No History of Problems with Anesthesia: No NPO: Yes ASA Class: III Final Preanesthetic Review: No Changes in Pt Med Stat, Meds/Allgs Chart Reviewed, Consent Obtained/Reviewed and Anes Risks/Benef Reviewed Patient Risk: Intermediate Procedure Risk: Intermediate Anesthetic Plan Anesthetic Plan: Agree w/ Assess. and Plan and TIVA Disposition: Standard PACU
[2024-05-22 16:19] VITALS: BP 97/64; PULSE 88; RESP 18; TEMP 36.8; O2SAT 95
--- NOTE | 2024-05-22 16:19 | W.PM.OPN ---
Operative Note Operative Note Date of Service: 05/22/24 Narrative: FLEXIBLE TRANSORAL UPPER GASTROINTESTINAL ENDOSCOPY WITH BIOPSIES Pre-op diagnosis: abnormal CT scan of stomach/GE junction Post-op diagnosis: Same Endoscopist:? Shabnam Hitchcock MD Anesthesia:?MAC UPPER ENDOSCOPY Consent: Indications for the procedure and potential complications of bleeding, perforation, reaction to medications and missed diagnosis were discussed with the patient and informed consent was obtained. Instrument: Olympus GIF H 190 mid size upper endoscope Monitoring: Vital signs and clinical assessment, continuous EKG monitoring, Pulse oximetry, Carbon Dioxide monitoring and blood pressure monitoring were done throughout the procedure. Procedure: The patient was placed in the left lateral decubitis position and pre-procedure medications were administered and a bite block was placed. The endoscope was inserted into the mouth and advanced under direct vision to the third part of duodenum. A careful inspection was made as the upper endoscope was withdrawn including a retroflexed examination of the proximal stomach; Findings and interventions are described below. Findings: Larynx: Normal Esophagus: Tortuous esophagus with increased tertiary contractions without stricture or ring. Biopsies obtained during past EGD were negative for EOE.?? GE junction at 36 cms.? No esophagitis or Garcia's. Stomach:?Mild gastric erythema with a few antral erosions. Biopsies obtained during past EGD were negative for H pylori. Prominent folds and no mass noted around the cardia on retroflexed examination - biopsies were obtained. Grade 2 flap valve of the cardia. Duodenum:?Normal Intervention: Biopsies as noted above Impression and Post Procedure Diagnosis: Endoscopy Findings: ESOPHAGUS: Tortuous esophagus with increased tertiary contractions without stricture or ring. Biopsies obtained during past EGD were negative for EOE.?? STOMACH: Prominent folds and no mass noted around the cardia on retroflexed examination - biopsies were obtained. Plan: Pt has a FU appointment on 07/09/[address] Hitchcock. Proceed with abdominal MRI to evaluate gastrc lesion - scheduled on 07/06/24 Above findings were reviewed with the patient and relevant handouts were given and the discharge area. BIOPSIES SHOWED: Immunostain for H. pylori is negative. Control stains appropriately. Gastric cardia, biopsy: Gastric cardia/fundic mucosa with focal minimal chronic inactive inflammation; negative for intestinal metaplasia and dysplasia
[2024-05-22 16:34] VITALS: BP 115/78; PULSE 89; RESP 18; TEMP 36.9; O2SAT 96
== END 2024-05-22 17:09 | disposition home or self-care (01) ==
PROVIDERS: PCP Physician Assistant; Visit Provider Internal Medicine Gastroenterology
PROC: 0DJ08ZZ Inspection of Upper Intestinal Tract, Via Natural or Artificial Opening Endoscopic (ICD-10-PCS; CPT 43235; principal; 2024-05-22 13:50)
DX: K29.50 Unspecified chronic gastritis without bleeding (principal); K22.89 Other specified disease of esophagus; K21.9 Gastro-esophageal reflux disease without esophagitis; I10 Essential (primary) hypertension; E78.5 Hyperlipidemia, unspecified; J45.909 Unspecified asthma, uncomplicated; F41.8 Other specified anxiety disorders; E11.9 Type 2 diabetes mellitus without complications; Z79.84 Long term (current) use of oral hypoglycemic drugs; Z79.51 Long term (current) use of inhaled steroids; Z79.899 Other long term (current) drug therapy; Z88.8 Allergy status to other drugs, medicaments and biological substances; Z98.84 Bariatric surgery status; Z98.890 Other specified postprocedural states; Z87.891 Personal history of nicotine dependence
CPT/HCPCS: 43239; 82947; 88305; 88342; J2250; J2704

== ENCOUNTER → 2024-05-22 12:14 | Outpatient (BNV) | payer OTHER, SELFPAY | PROVIDERS: PCP Physician Assistant; Visit Provider Internal Medicine Gastroenterology | DX: K22.89 Other specified disease of esophagus (principal); K31.89 Other diseases of stomach and duodenum | CPT/HCPCS: 43239 ==

== ENCOUNTER 2024-05-26 11:08 | Outpatient (AMB) | payer OTHER, SELFPAY ==
[2024-05-26 11:15] VITALS: BP 118/80; PULSE 84; O2SAT 96; BMI 31.3
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
== END 2024-05-26 11:52 | disposition home or self-care (01) ==
PROVIDERS: PCP Physician Assistant; Visit Provider Physician Assistant
DX: Z09 Encounter for follow-up examination after completed treatment for conditions other than malignant neoplasm (principal); E11.9 Type 2 diabetes mellitus without complications; Z79.4 Long term (current) use of insulin; I10 Essential (primary) hypertension; K21.00 Gastro-esophageal reflux disease with esophagitis, without bleeding; V89.2XXD Person injured in unspecified motor-vehicle accident, traffic, subsequent encounter; M54.2 Cervicalgia
CPT/HCPCS: 99214

== ENCOUNTER 2024-07-06 07:55 | Outpatient (REF) | payer OTHER, SELFPAY ==
--- NOTE | ~2024-07-06 | MR_ITS ---
EXAMINATION: MR ABDOMEN WITHOUT CONTRAST CLINICAL INFORMATION: Other specified diseases of the biliary tract COMPARISON: CT abdomen and pelvis 05/17/2024 TECHNIQUE: MRI of the abdomen without contrast was obtained using routine sequences. Heavily T2 weighted MRCP sequences were also obtained. FINDINGS: LUNG BASES: Unremarkable. ABDOMINAL AND PELVIC WALL: Unremarkable. LIVER AND BILIARY TREE: Liver is enlarged measuring 20.4 cm in span. Common bile duct measures 8 mm which is within limits of normal for the postcholecystectomy state. No intrahepatic biliary duct dilatation. No intraluminal filling defect to suggest choledocholithiasis. Moderate loss of signal on opposed phase imaging compatible with hepatic steatosis. A 0.9 cm T2 bright liver lesion in hepatic segment 5/6, 5:21, suboptimally evaluated given lack of intravenous contrast though possibly a small hemangioma but could be confirmed with a multiphase postcontrast MR abdomen. GALLBLADDER: Status post cholecystectomy. PANCREAS: Unremarkable. SPLEEN: 6 mm T2 bright lesion in the spleen, 5:11, suboptimally evaluated in the absence of contrast however possibly a small hemangioma as there is a subtle enhancing correlate on prior CTs. ADRENAL GLANDS: Unremarkable. KIDNEYS AND URETERS: Bosniak 1 renal cysts no imaging follow-up recommended. GASTROINTESTINAL TRACT: Unremarkable. VASCULAR: Unremarkable. LYMPH NODES/PERITONEUM: No lymphadenopathy. FREE FLUID: None. BLADDER: Unremarkable. PELVIC VISCERA: Unremarkable. OSSEOUS STRUCTURES: Unremarkable. MR/MR MRCP IMPRESSION: 1. Common bile duct measures 8 mm which is within limits of normal for the postcholecystectomy state. No intrahepatic biliary duct dilatation. No intraluminal filling defect to suggest choledocholithiasis. 2. Moderate hepatic steatosis and hepatomegaly. 3. A 0.9 cm T2 bright liver lesion in hepatic segment 5/6, suboptimally evaluated given lack of intravenous contrast though possibly a small hemangioma but could be confirmed with a multiphase postcontrast MR abdomen. 4. A 6 mm T2 bright lesion in the spleen, suboptimally evaluated in the absence of contrast however possibly a small hemangioma as there is a subtle enhancing correlate on prior CTs. Electronically signed by: Jessica Good MD 07/10/2024 12:10 PM EDT
[2024-07-06 09:36] LABS: Hematocrit 42.1 % (37.0-47.0); Hemoglobin 14.3 g/dl (12.0-16.0); Mean Corpuscular Hemoglobin 28.7 pg (27.0-33.0); Mean Corpuscular Volume 84.5 fL (80.0-98.0); Mean Platelet Volume 8.7 fL (9.4-12.3); Platelet Count 272 X10*3/uL (160-400); Red Blood Count 4.98 X10*6/uL (4.20-5.50); Red Cell Distribution Width 12.4 % (11.0-16.0); White Blood Count 5.3 X10*3/uL (4.8-10.8)
[2024-07-06 09:40] LABS: Estimated Average Glucose 154 mg/dL
[2024-07-06 10:03] LABS: Alanine Aminotransferase 34 U/L (0-31); Albumin Level 4.5 g/dL (3.5-5.0); Alkaline Phosphatase 67 U/L (39-117); Anion Gap 13 (12-20); Aspartate Amino Transferase 18 U/L (5-31); Bilirubin Total 0.7 mg/dL (0.0-1.0); Blood Urea Nitrogen 15 mg/dL (9-16); Calcium 9.9 mg/dL (8.4-10.2); Carbon Dioxide 26 mmol/L (22-29); Chloride 105 mmol/L (96-108); Cholesterol 281 mg/dL (<200); Estimated Glomerular Filt Rate > 60; Glucose Fasting 144 mg/dL (60-99); HDL Cholesterol 54 mg/dL (>40); LDL Cholesterol Calculated 162 mg/dL (<100); Potassium 4.4 mmol/L (3.3-5.1); Sodium 140 mmol/L (135-145); Total Protein 7.3 g/dL (6.5-8.0); Triglycerides 326 mg/dL (<150)
== END 2024-07-06 07:56 | disposition home or self-care (01) ==
LOC: HO.MRI 07:55
PROVIDERS: PCP Physician Assistant; Visit Provider Internal Medicine Gastroenterology
DX: K83.8 Other specified diseases of biliary tract (principal); K21.00 Gastro-esophageal reflux disease with esophagitis, without bleeding; E78.5 Hyperlipidemia, unspecified; E11.9 Type 2 diabetes mellitus without complications; Z79.4 Long term (current) use of insulin
CPT/HCPCS: 36415; 74181; 80053; 80061; 83036; 85027

== ENCOUNTER 2024-07-09 11:10 | Outpatient (AMB) | payer OTHER, SELFPAY ==
--- NOTE | 2024-07-09 11:12 | A.OFFVIS_ITS ---
Vital Signs 07/09/24 11:14 Height 5 ft 6 in Weight 192 lb BMI 31.0 BP 107/56 L Blood Pressure Location Lt brachial Position Sitting Pulse 96 Intake Visit Reasons: 4 month GERD Intake Note: Patient follow up for GERD and abdominal bloating and EGD and MRI results Patient cc: Diarrhea, abdominal pain with bloating, acid reflex with burning sensation, food stock on her throat. Tiredness and also fatigue Precision Dyer Required: No Accompanied by: Self / Same As Patient Allergies seafood Allergy (Unknown, Verified 07/16/24 11:19) Unknown dulaglutide [From Trulicity] Adverse Reaction (Intermediate, Verified 07/16/24 11:19) Diarrhea metformin Adverse Reaction (Intermediate, Verified 07/16/24 11:19) GAstric upset lisinopril Adverse Reaction (Unknown, Verified 07/16/24 11:19) cough Medication List - Last Reconciled 07/09/24 by Shabnam Hitchcock MD acetaminophen ER (Tylenol Arthritis Pain) 650 mg PO Q12H 30 days albuterol sulfate 90 mcg/actuation 2 puffs inhalation QID 30 days albuterol sulfate 2.5 mg (3 mL) inhalation Q6H PRN 30 days atorvastatin 40 mg PO BEDTIME blood sugar diagnostic (FreeStyle Precision Steffen Strips) As directed once daily blood-glucose meter (FreeStyle Precision Steffen Meter) As directed cetirizine 10 mg PO DAILY PRN 90 days cholecalciferol (vitamin D3) 25 mcg PO DAILY 90 days citalopram 20 mg PO DAILY@0900 clonazepam 2 mg PO BEDTIME clonazepam 1 mg PO DAILY@0900 famotidine (Pepcid) 40 mg PO BEDTIME 90 days fenofibrate nanocrystallized 48 mg PO DAILY fluticasone propion-salmeterol 230-21 mcg/actuation (Advair HFA) 2 inhalations inhalation BID gabapentin 600 mg PO BID 30 days metformin 1,000 mg PO DAILY 90 days pantoprazole 40 mg PO BID 30 days pyridoxine (vitamin B6) 100 mg (2 x 50 mg) PO DAILY 90 days semaglutide (Ozempic) 1 mg (0.75 mL) subcut QWEEK 4 weeks sucralfate 1 g PO QIDACHS telmisartan (Micardis) 20 mg PO DAILY@0900 tizanidine 2 mg PO TID PRN 5 days tramadol 50 mg PO BID 7 days zolpidem 10 mg PO BEDTIME HPI HPI 4 month GERD: Details: GI CLINIC VISIT FOR THIS 59-YEAR-OLD FEMALE FOR RECTAL PAIN. PT IS FOLLOWED IN GI FOR DYSPHAGIA AND EPIGASTRIC PAIN. PATIENT IS STATUS POST LAP BAND SURGERY IN 2010 AND LAP BAND WAS REMOVED IN 2015. Pt was seen by Dr Parry for anal pain and treated with topical NTG followed by Nifedipine Pelvic CT scan was negative for perianal abscess. ?CHRONIC ILLNESSES:?hypercholesterolemia, depression, anxiety, asthma, hemorrhoids, hypertention diabetes type II, nephrolithiasis? TODAY'S VISIT Patient follow up for GERD and abdominal bloating and EGD and MRI results Patient cc: Diarrhea, abdominal pain with bloating, acid reflex with burning sensation, food stock on her throat. Tiredness and also fatigue I am doing so so Constipation x 2 weeks. Day she had the MRI she had hard stools followed by diarrhea. Had 6-7 BMs yesterday and had an accident in bed last night. Had the urge to have a BM and unable to have a BM when she goes to the bathroom PAST VISITS: Pt reports she is feeling better. Can have some pain if she eats something hard - meats and crackers, sauces. Has been avoiding foods which cause abd pain and medication is helping. She is being switched to a new medication for DM - waiting for insurance approval. Patient cc: abdominal pain/bloating, acid reflex with burning sensation, and between diarrhea and constipation. Pt seen by Medicaid Specialist at [facility] and had a Pelvic US on 02/25/24 - ? post surgical changes related to past hysterectomy She was told it looks like a fibroma and no surgery is needed. EGD and bx results reviewed Pt denies any change in abdominal pain. Taking Sucralfate Abd pain was better while she was in the hospital and not taking the metformin Thinks abd pain may be related to metformin Has been taking Metformin for the past ? 4 yrs (since dxed with DM) Woke up with burning pain last night. Pain is associated with intake of hard and spicy foods (meats, rice, greasy foods) Patient continue with abdominal bloating, acid reflex with esophagus irritation, and between diarrhea and constipation. Complains of bloating and esophageal discomfort. Intermittent dysphagia associated with intake of rice and meats Patient denies significant improvement in dysphagia after past EGD and dilation. She complains of diarrhea alternating with constipation - recent C diff toxin was negative. Takes tramadol and ibuprofen infrequently for severe pain. EGD and colon results reviewed with the patient. Notes upper abdominal discomfort. Feels food is moving slowly in the lower esophagus. Had choking with a piece of meat Gives a hx of colon polyps in the past Diarrhea is better - taking probiotics Niece has stage 4 lung cancer and rapidly declining and on being placed under hospice care. Patient cc: Nauseas, abdominal pain/bloating, and diarrhea on and off, also she is been having some swallowing problems. Diarrhea comes and goes. Notes post prandial nausea and sometimes diarrhea. Stool is frothy and floats on the toilet water. She also complains of bad breath - which is new (states dental check up was normal) Notes diarrhea with everything she eats. Intermittent abdominal bloating When she eats she feels she has eaten a ton of food. Has symptoms with solid food and not with soups. Denies nausea or vomiting. SANDOVAL x 4 days - COVID test was negative. Notes cramps in the abdominal wall when she moves from side to side - likely musculoskeletal. Bad breath has improved with medications. Has 2 BMs a day - depending on her diet. Last episode of diarrhea started after she had antibiotics for sinus infection Recurrent diarrhea with abd pain x 2 weeks Notes bad breath Notes sharp and throbbing pain in the rectum after having multiple episodes of diarrhea Chills at night which she attributes to menopause. Has been eating small portions due to decreased appetite Wt loss to 200 lbs (208 lbs in 11/2020) [facility] Review[facility]. Stool antigen for C Diff was positive ON AND February and negative on 10/08/19 ?IMAGING STUDIES: 02/04/[address] SCAN SHOWED: Lobulated mass anterior to the vaginal cuff is unchanged relative to comparison studies. It measures approximately 3.4 x 2.3 x 2.5 cm. Gastric wall thickening is suspected. Consider correlation with direct visualization. Hepatomegaly and hepatic steatosis. 07/2021 GASTRIC EMPTYING STUDY SHOWED:No abnormal retention of solid food is noted. Gastric emptying is more rapid than normal, a finding of uncertain clinical significance. ?09/13/[address] SCAN SHOWED: ? Mild right hydroureteronephrosis. 0.5 cm calculus at the right ureterovesicular junction. ? Hepatomegaly with hepatic steatosis. 07/15 Barium swallow showed:? Delay in passage of a 13 mm barium tablet across the gastroesophageal junction, raising the possibility of underlying stricturing.? No delay in liquid barium passage across the gastroesophageal junction. ENDOSCOPIC STUDIES: ? 02/04/24 EGD SHOWED: Esophagus: GE junction at 37 cm, diaphragm hiatus at 37 cm, normal Stomach: mild patchy erythema . Biopsies were obtained. Grade 2 flap valve on retroflexed examination of the cardia. Duodenum: Normal bulb and descending duodenum, bx taken Impression/Findings: mild gastritis PLAN: cont with PPI add carafate QID if ongoing sx then consider US duplex to r/o ischemia, and if neg then head scan to r/o central cause of sx BIOPSIES SHOWED: A. Duodenum, biopsy: Chronic inactive duodenitis. B. Stomach, biopsy: Oxyntic mucosa within normal limits; no Helicobacter organisms 04/2023 EGD AND COLONOSCOPY SHOWED:ESOPHAGUS: Tortuous esophagus with increased tertiary contractions without stricture or ring - biopsies obtained during past EGD were negative for EOE.??GE junction at 36 cms.? Minimal focal esophagitis at GE junction and no Garcia's.Empiric balloon dilation was performed with a 20 mm (60 F) CRE balloon x 60 sec STOMACH: Mild gastritis DUODENUM: A small benign appearing polyp was biopsied in the duodenal bulb. Biopsied obtained from 3rd part of the duodenum to check for celiac sprue Colonoscopy Findings: One polyp was biopsied - biopsies showed lymphoid aggregates. Random biopsies obtained from the right and left colon to check for microscopic colitis Moderate diverticulosis seen in the sigmoid colon Small hemorrhoids on retroflexed exam. Colon aspirate was sent for C Diff toxin Plan: Repeat Colonoscopy interval based on path results - in 3-5 years if polyps are adenomatous and 10 years if polyps are hyperplastic. 12/16/20 EGD SHOWED:ESOPHAGUS: Tortuous esophagus with increased tertiary contractions without stricture or ring - biopsies were obtained from proximal esophagus to check for EOE.GE junction at 36 cms.? Prominent folds at GE junction - biopsied.? No esophagitis or BarrettBalloon dilation was performed with 19 and 20mm CRE balloon x 60 seconds at each level STOMACH: Gastritis with a few superficial antral erosions likely due to NSAIDS DUODENUM: Normal - biopsied to check for celiac sprue. Plan:? Patient has an appointment on 01/19/21 in the GI Clinic with Shabnam Hitchcock M.D. If symptoms persist, further evaluation with a chest CT scan will be scheduled Above findings were reviewed with the patient and Gastritis handout was given in the discharge area BIOPSIES SHOW: A.? Small bowel, biopsy:? Small bowel mucosa within normal limits; preserved villous architecture and no increased intraepithelial lymphocytes. B. Stomach, antrum, biopsy:? Gastric antral mucosa with mild chronic inactive gastritis; negative for Helicobacter pylori, intestinal metaplasia and dysplasia. C. Esophagus, proximal, biopsy:? Squamous mucosa within normal limits; negative for inflammation (including eosinophils), fungal organisms, intestinal metaplasia and dysplasia. D. Gastroesophageal junction, biopsy:? Gastric cardia-type mucosa with mild chronic inactive inflammation; no squamous mucosa seen; negative for intestinal metaplasia or dysplasia. 07/2018 EGD WITH ESOPHAGEAL BALLOON DILATION WAS PERFORMED BY DR. JENKINS:? 1. Distal esophageal ring (question of muscular).? 2. Superficial gastritis.BIOPSIES SHOWED: Fragments of unremarkable fundic-type gastric mucosa. The Helicobacter pylori immunohistochemical stain is negative. ?? ? IMPEDENCE TESTIN HR AMBULATORY pH-IMPEDENCE TESTING WITH HIGH RESOLUTION ESOPHAGEAL MANOMETRY: ? Normal UES function, Normal LES length ? Normal LES/EGJ resting pressure, Normal LES relaxation ? No hiatal hernia was detected manometrically ? Correll Classification 3.0: Normal Esophageal contractility. [facility] Medical History History of panic attacks Asthma Anal fissure Anal pain Pulmonary nodules Hx of renal calculi Flu-like symptoms Spondylosis of lumbar spine Fibromyalgia Dyslipidemia Obesity, Class I, BMI 30-34.9 Nephrolithiasis Recurrent Clostridioides difficile infection Hx of thyroid nodule Back pain Arthritis Depression Anxiety Type 2 diabetes mellitus HLD (hyperlipidemia) GERD (gastroesophageal reflux disease) HTN (hypertension) Surgical History History of esophagogastroduodenoscopy (EGD) Hx of cosmetic surgery Hx of tonsillectomy Hx of section Hx of lithotripsy Hx of endoscopy Hx of colonoscopy (~11/2016) S/P anal fissurectomy H/O hemorrhoidectomy Hx laparoscopic cholecystectomy S/P left oophorectomy H/O partial thyroidectomy (~2016) History of removal of laparoscopic gastric banding device (~2015) History of abdominoplasty History of colonoscopy History of laparoscopic adjustable gastric banding (~2010) History of bilateral breast reduction surgery (~2008) History of hysterectomy Family History Father Diabetes Hypertension Depression Mother Lung cancer Diabetes Mental health disorder Brother HIV (human immunodeficiency virus infection) Depression Diabetes Sister Hypertension Diabetes Mental health disorder Daughter Mental health disorder Son Mental health disorder Social History Household Members: Children Housing: House Do you presently have visiting nurse or other home services: Yes Alcohol intake: current Alcohol intake frequency: holidays/special occasions only Patient Tobacco Use Status: Former Tobacco user e-Cigarette/Vaping Use: Never Used Second Hand Smoke Exposure: No Substance Use Type: Marijuana Advance Directives Date on File: 02/06/24 service: No Current occupational status: disabled Cognitive needs: No Hearing needs: No Vision needs: Yes Review of Systems Const Denies headache(s) Eyes Denies loss of vision ENT Denies vertigo, Denies dizziness, Denies headache(s) and Denies sore throat Card Denies chest pain, Denies leg edema and Denies lightheadedness Resp Denies cough, Denies hemoptysis and Denies wheezing GI Denies abdominal pain, Denies melena, Denies constipation, Reports dyspepsia, Reports diarrhea and Denies vomiting Denies urinary frequency, Denies dysuria and Denies urinary urgency Musc Denies arthralgias, Denies joint swelling, Denies numbness and Denies tingling Neuro Denies Abnormal speech present, Denies behavioral changes, Denies vertigo, Denies dizziness, Denies headache(s), Denies loss of vision, Denies memory loss, Denies numbness and Denies tingling Psych Denies anxiety, Denies behavioral changes, Denies depression, Denies memory loss and Denies panic attacks Swapnil/Lymph Denies easy bleeding and Denies easy bruising Aller/Immun Denies wheezing Physical Exam Vital Signs: Last Vital Signs Pulse 96 07/09/24 11:14 BP 107/56 L 07/09/24 11:14 BMI result Body Mass Index 31.0 Const General: healthy appearing and no acute distress Nutritional Appearance: obese Orientation/consciousness: patient oriented x3 Limitations: no limitations HEENT Head: Yes normal to inspection Ears: hearing grossly normal bilaterally Eyes Sclerae: sclerae normal Pupils: Equal, round and reactive pupils present Neck Neck: Yes normal visual inspection Chest Chest palpation & inspection: normal inspection of the chest Resp Effort & Inspection: normal respiratory effort Auscultation: clear to auscultation bilaterally Cardio Palpation: normal PMI Rate: regular rate Rhythm: regular rhythm Heart sounds: S1 normal heart sound present, S2 normal heart sound present and no murmurs GI Palpation (GI): Soft to palpation, nontender and No hepatosplenomegaly present Auscultation: normal bowel sounds Rectal Exam - Female: deferred Skin General skin exam: no rashes or lesions noted Neuro General: patient oriented x3, gait normal and moves all extremities Cranial nerves: Yes Equal, round and reactive pupils present Speech: No Abnormal speech present Psych Appearance: grossly normal Mental Status: mental status grossly normal Assessment & Plan Assessment & Plan (1) Esophageal spasm: Code(s): K22.4 - Dyskinesia of esophagus Category: Medical (2) Epigastric pain: Code(s): R10.13 - Epigastric pain Category: Medical (3) Schatzki's ring: Code(s): K22.2 - Esophageal obstruction Category: Medical (4) Colon cancer screening: Comment: 11/2016 a diminutive polyp was removed during colonoscopy by Dr. Jenkins. Repeat colonoscopy was advised in 10 years. Code(s): Z12.11 - Encounter for screening for malignant neoplasm of colon Category: Medical (5) Abdominal bloating: Code(s): R14.0 - Abdominal distension (gaseous) Category: Medical (6) Dysphagia, pharyngoesophageal phase: Code(s): R13.14 - Dysphagia, pharyngoesophageal phase Category: Medical (7) Diarrhea: Code(s): R19.7 - Diarrhea, unspecified Category: Medical Qualifiers: Diarrhea type: infectious Qualified Code(s): A09 - Infectious gastroenteritis and colitis, unspecified (8) Drug induced constipation: Code(s): K59.03 - Drug induced constipation Category: Medical (9) GERD (gastroesophageal reflux disease): Code(s): K21.9 - Gastro-esophageal reflux disease without esophagitis Category: Medical Qualifiers: Esophagitis presence: with esophagitis Esophagitis bleeding: without hemorrhage Qualified Code(s): K21.00 - Gastro-esophageal reflux disease with esophagitis, without bleeding Plan 59 YF with hypercholesterolemia, depression, anxiety, asthma, hemorrhoids, hypertension diabetes type II, migraine headache thyroid disease (S/p surgery with removal of 1/2 of the gland), nephrolithiasis followed in GI for dysphagia, known hx of Schatzki's ring, epigastric pain, diarrhea and constipation. Patient is status post cholecystectomy for gallstones. Pt has a hx of recurrent C Diff infection. Patient is status post lap band surgery in 2010 and lap band was removed in 2015. She reports pain at her upper stomach ever since she had the band place and even after removal. Manometry study at [facility] was normal - no motility disorder was identified Patient has been referred to Dr Larsen for a 2nd opinion and appt was postponed due to COVID-19 pandemic and pt was not seen. 12/16/20 upper endoscopy with esophageal balloon dilation to 20mm (60 F) was performed without significant change in her symptoms. Pt has had recurrent C Diff since 2019 usually precipitated by antibiotic therapy. Last episode was in 03/2021 and treated with Vancomycin 125 mg four times daily x 10 days Patient was advised to continue HC cream/preparation H for hemorrhoids and referred to surgery. Pt advised to have a stool test checked for C Diff if she has recurrent diarrhea. 04/2023 EGD (FU of dysphagia) and colonoscopy were performed and results as noted above Patient advised repeat colonoscopy in 10 years. Stool studies showed C Diff colonization without infection Patient advised to continue with probiotics. 01/02/24 Patient continue with abdominal bloating, acid reflex with esophagus irritation, and between diarrhea and constipation. Complains of bloating and esophageal discomfort. Intermittent dysphagia associated with intake of rice and meats Patient denies significant improvement in dysphagia after past EGD and dilation. She complains of diarrhea alternating with constipation - recent C diff toxin was negative. Takes tramadol and ibuprofen infrequently for severe pain. Pt advised a trail of FODMAP diet for 6 weeks 02/13/24 EGD and bx results reviewed Pt denies any change in abdominal pain. Taking Sucralfate Abd pain was better while she was in the hospital and not taking the metformin Thinks abd pain may be related to metformin Has been taking Metformin for the past ? 4 yrs (since dxed with DM) Woke up with burning pain last night. Pain is associated with intake of hard and spicy foods (meats, rice, greasy foods) 03/05/24 Abd pain improved. Pt advised to continue Pantorpazole 40 mg twice daily for a month and then decrease to once a day alternating with twica a day for another month 07/09/24 EGD and MRCP results reviewed I am doing so so Constipation x 2 weeks. Day she had the MRI she had hard stools followed by diarrhea. Had 6-7 BMs yesterday and had an accident in bed last night. Had the urge to have a BM and unable to have a BM when she goes to the bathroom Schedule MRI with contrast for FU of liver lesion Follow-up in 3 months - scheduled 10/22/24 Medications: Discontinued metformin Discontinued Reason: Patient Completed Course 1,000 mg PO DAILY 90 days 90 tabs 2RF E11.9 - Type 2 diabetes mellitus without complications Coding Level of Care Code Est Pt Level 4 (08336) Diagnoses Esophageal spasm K22.4 Epigastric pain R10.13 Schatzki's ring K22.2 Colon cancer screening Z12.11 Abdominal bloating R14.0 Dysphagia, pharyngoesophageal phase R13.14 Diarrhea of infectious origin A09 Diarrhea type: infectious Drug induced constipation K59.03 Gastroesophageal reflux disease with esophagitis without hemorrhage K21.00 Esophagitis presence: with esophagitis Esophagitis bleeding: without hemorrhage Time Spent (min) 23
[2024-07-09 11:14] VITALS: BP 107/56; PULSE 96; BMI 31.0
== END 2024-07-09 12:32 | disposition home or self-care (01) ==
PROVIDERS: PCP Physician Assistant; Visit Provider Internal Medicine Gastroenterology
DX: K22.4 Dyskinesia of esophagus (principal); R10.13 Epigastric pain; K22.2 Esophageal obstruction; Z12.11 Encounter for screening for malignant neoplasm of colon; R14.0 Abdominal distension (gaseous); R13.14 Dysphagia, pharyngoesophageal phase; A09 Infectious gastroenteritis and colitis, unspecified; K59.03 Drug induced constipation; K21.00 Gastro-esophageal reflux disease with esophagitis, without bleeding
CPT/HCPCS: 99499

== ENCOUNTER → 2024-07-09 11:10 | Outpatient (BNVA) | payer OTHER, SELFPAY | PROVIDERS: PCP Physician Assistant; Visit Provider Internal Medicine Gastroenterology ==

== ENCOUNTER 2024-07-16 11:08 | Outpatient (AMB) | payer OTHER, SELFPAY ==
--- NOTE | 2024-07-16 11:11 | MHC.PC.OV ---
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 Accompanied by: Self / Same As Patient Allergies seafood Allergy (Unknown, Verified 07/16/24 11:19) Unknown dulaglutide [From [facility]] Adverse Reaction (Intermediate, Verified 07/16/24 11:19) Diarrhea metformin Adverse Reaction (Intermediate, Verified 07/16/24 11:19) GAstric upset lisinopril Adverse Reaction (Unknown, Verified 07/16/24 11:19) cough Medication List - Last Reconciled 07/16/24 by Silvino Andujar PA-C acetaminophen ER (Tylenol Arthritis Pain) 650 mg PO Q12H 30 days albuterol sulfate 90 mcg/actuation 2 puffs inhalation QID 30 days albuterol sulfate 2.5 mg (3 mL) inhalation Q6H PRN 30 days atorvastatin 40 mg PO BEDTIME blood sugar diagnostic (FreeStyle Precision Steffen Strips) As directed once daily blood-glucose meter (FreeStyle Precision Steffen Meter) As directed cetirizine 10 mg PO DAILY PRN 90 days cholecalciferol (vitamin D3) 25 mcg PO DAILY 90 days citalopram 20 mg PO DAILY@0900 clonazepam 2 mg PO BEDTIME clonazepam 1 mg PO DAILY@0900 fenofibrate nanocrystallized 48 mg PO DAILY fluticasone propion-salmeterol 230-21 mcg/actuation (Advair HFA) 2 inhalations inhalation BID gabapentin 600 mg PO BID 30 days pantoprazole 40 mg PO BID 30 days semaglutide (Ozempic) 1 mg (0.75 mL) subcut QWEEK 4 weeks sucralfate 1 g PO QIDACHS telmisartan (Micardis) 20 mg PO DAILY@0900 tramadol 50 mg PO BID 7 days zolpidem 10 mg PO BEDTIME Tobacco use date assessed: 11/05/23 Dental Screening Dental Screen Date: 11/05/23 HPI [facility] [place] Pain 6 weeks HPI Details Patient is a 59-year-old female here today for a hospital discharge and follow-up.? Patient has a past Conditions history significant for type 2 diabetes, hypertension, obesity, recurrent C diff colitis, moderate persistent asthma, pulmonary nodule, major depressive disorder and generalized anxiety disorder. Patient did undergo an MRI of her abdomen to evaluate her liver --- > Common bile duct measures 8 mm which is within limits of normal for the postcholecystectomy state. No intrahepatic biliary duct dilatation. No intraluminal filling defect to suggest choledocholithiasis. 2. Moderate hepatic steatosis and hepatomegaly. 3. A 0.9 cm T2 bright liver lesion in hepatic segment 5/6, suboptimally evaluated given lack of intravenous contrast though possibly a small hemangioma but could be confirmed with a multiphase postcontrast MR abdomen. 4. A 6 mm T2 bright lesion in the spleen, suboptimally evaluated in the absence of contrast however possibly a small hemangioma as there is a subtle enhancing correlate on prior CTs Due to her continued GERD symptoms and chronic abdominal pain she has stopped taking her cholesterol medication and metformin. Unfortunately her cholesterol has not elevated and is willing to restart statin therapy. CHRONIC MEDICAL CONDITIONS----> .. Type 2 diabetes:? Recent sugars have been stable. Patient has been holding Ozempic due to her GI symptoms though has seen her sugars elevate as of late. Most recent A1c is 7.0. She continues to hold metformin. Due to her elevation in her sugars she is willing to try another oral medication to with glycemic control. PLAN: Will add on Actos 15 mg for better glycemic control . Asthma: Patient's asthma has been not well controlled. She has had multiple exacerbations. Has been recently started on Advair HFA which she feels is helpful. ? . .. Major depressive disorder, generalized anxiety disorder:? Continues to follow a mental therapist and a psychiatrist whom manage her mental health medications.? She feels fairly stable at this time with her mental health medications. [facility] Medical History History of panic attacks Asthma Anal fissure Anal pain Pulmonary nodules Hx of renal calculi Flu-like symptoms Spondylosis of lumbar spine Fibromyalgia Dyslipidemia Obesity, Class I, BMI 30-34.9 Nephrolithiasis Recurrent Clostridioides difficile infection Hx of thyroid nodule Back pain Arthritis Depression Anxiety Type 2 diabetes mellitus HLD (hyperlipidemia) GERD (gastroesophageal reflux disease) HTN (hypertension) Surgical History History of esophagogastroduodenoscopy (EGD) Hx of cosmetic surgery Hx of tonsillectomy Hx of section Hx of lithotripsy Hx of endoscopy Hx of colonoscopy (~11/2016) S/P anal fissurectomy H/O hemorrhoidectomy Hx laparoscopic cholecystectomy S/P left oophorectomy H/O partial thyroidectomy (~2016) History of removal of laparoscopic gastric banding device (~2015) History of abdominoplasty History of colonoscopy History of laparoscopic adjustable gastric banding (~2010) History of bilateral breast reduction surgery (~2008) History of hysterectomy Family History Father Diabetes Hypertension Depression Mother Lung cancer Diabetes Mental health disorder Brother HIV (human immunodeficiency virus infection) Depression Diabetes Sister Hypertension Diabetes Mental health disorder Daughter Mental health disorder Son Mental health disorder Social History Household Members: Children Housing: House Do you presently have visiting nurse or other home services: Yes Alcohol intake: current Alcohol intake frequency: holidays/special occasions only Patient Tobacco Use Status: Former Tobacco user e-Cigarette/Vaping Use: Never Used Second Hand Smoke Exposure: No Substance Use Type: Marijuana Advance Directives Date on File: 02/06/24 service: No Current occupational status: disabled Cognitive needs: No Hearing needs: No Vision needs: Yes Questionnaire Thrive Questionnaire Date Thrive assessed: 11/05/23 EMIL-7 AMB Questionnaire EMIL-7 Date EMIL - 7 assessed: 11/05/23 Source: Developed by Drs. Vazquez Holden, Jaye Ryan, Carl Gaona and colleagues, with an educational kalpana from [employer]. Review of Systems Const Denies headache(s) Eyes Denies loss of vision ENT Denies vertigo, Denies dizziness, Denies headache(s) and Denies sore throat Card Denies chest pain, Denies leg edema and Denies lightheadedness Resp Denies cough, Denies hemoptysis and Denies wheezing GI Denies abdominal pain, Denies melena, Denies constipation, Reports dyspepsia, Reports diarrhea and Denies vomiting Denies urinary frequency, Denies dysuria and Denies urinary urgency Musc Denies arthralgias, Denies joint swelling, Denies numbness and Denies tingling Neuro Denies Abnormal speech present, Denies behavioral changes, Denies vertigo, Denies dizziness, Denies headache(s), Denies loss of vision, Denies memory loss, Denies numbness and Denies tingling Psych Denies anxiety, Denies behavioral changes, Denies depression, Denies memory loss and Denies panic attacks Swapnil/Lymph Denies easy bleeding and Denies easy bruising Aller/Immun Denies wheezing Physical exam (Primary Care) Vital Signs: Last Vital Signs Pulse 77 07/16/24 11:16 BP 122/74 07/16/24 11:16 Pulse Ox 97 07/16/24 11:16 Oxygen Delivery Method Room Air 07/16/24 11:16 BMI result Body Mass Index 31.8 Tobacco/Smoking Status: Tobacco use Status Tobacco use date assessed 11/05/23 07/16/24 11:11 Patient Tobacco Use Status Former Tobacco user 07/16/24 11:11 e-Cigarette/Vaping Use Never Used 07/16/24 11:11 Thrive Assessment: Date of Thrive Assessment Date Thrive assessed 11/05/23 07/16/24 11:11 Const General: healthy appearing, no acute distress, alert and awake Nutritional Appearance: well nourished Orientation/consciousness: oriented to person, oriented to place and oriented to time HENMT Ears: TM's normal bilaterally General nose exam: Normal nasal mucous membranes and turbinates present Eyes Conjunctivae: conjunctivae normal Sclerae: sclerae normal Pupils: Equal, round and reactive pupils present Neck Neck: Yes no lymphadenopathy and Yes no JVD Thyroid: Thyroid normal Carotids: no bruits Resp Effort & Inspection: normal respiratory effort and not tachypneic Auscultation: no crackles, no rales, no rhonchi and no wheezes Cardio Rate: regular rate Rhythm: regular rhythm Heart sounds: no murmurs and normal S1 and S2 GI Palpation (GI): Soft to palpation, nontender, no hepatomegaly and no splenomegaly Auscultation: normal bowel sounds Skin General skin exam: no rashes or lesions noted and dry skin Neuro General: oriented to person, oriented to place and oriented to time Cranial nerves: Yes Equal, round and reactive pupils present Speech: No Abnormal speech present Gait exam (Neuro): Normal gait present Motor exam (neuro): no tremor noted Extrem Right upper extremity: full ROM Left upper extremity: full ROM Right lower extremity: full ROM; no edema Left lower extremity: full ROM; no edema Psych Mental Status: mental status grossly normal Speech and movement: Normal speech and movement present Affect: normal affect Attitude: cooperative Thought process: Normal thought process present Assessment and Plan Assessment & Plan (1) Type 2 diabetes mellitus: Code(s): E11.9 - Type 2 diabetes mellitus without complications Qualifiers: Diabetes mellitus penitentiary insulin use: with penitentiary use Diabetes mellitus complication status: without complication Qualified Code(s): E11.9 - Type 2 diabetes mellitus without complications; 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 Most recent A1c is 7.0. She will continue Ozempic 1 mg weekly, I will add on Actos 15 mg for better glycemic control. Continue to hold metformin is was causing patient's GI discomfort Goal A1c is to be below 7.0 (2) HTN (hypertension): Code(s): I10 - Essential (primary) hypertension Qualifiers: Hypertension type: essential hypertension Qualified Code(s): I10 - Essential (primary) hypertension Plan: Patient's blood pressure acceptable today in office. Will continue her current dose of antihypertensive medication with goal blood pressure to be below 140/90 (3) GERD (gastroesophageal reflux disease): Code(s): K21.9 - Gastro-esophageal reflux disease without esophagitis Qualifiers: Esophagitis presence: with esophagitis Esophagitis bleeding: without hemorrhage Qualified Code(s): K21.00 - Gastro-esophageal reflux disease with esophagitis, without bleeding Plan: Recently hospitalized for GERD. Carafate has been started. Has recently underwent endoscopy that did show some chronic inactive gastritis though no ulcers. As per HPI patient is MRI abdomen does show she has both a what seems to be a hemangioma on her liver and spleen. Otherwise no other significant concerns. (4) Dyslipidemia: Code(s): E78.5 - Hyperlipidemia, unspecified Plan: Patient's most recent lipid panel showing elevated total cholesterol and LDL. She has not been taking her statin therapy due to her GI symptoms. She is willing to restart atorvastatin 40 mg for better control over cholesterol. Goal LDL is to be below 100. Orders: Orders Lipid Panel 3 Months E78.5 - Hyperlipidemia, unspecified Comprehensive [place]. Panel Fast 3 Months E11.9 - Type 2 diabetes mellitus without complications, Z79.4 - [facility] (current) use of insulin Complete Blood Count no Diff 3 Months E11.9 - Type 2 diabetes mellitus without complications, Z79.4 - [facility] (current) use of insulin HIV Ab/Ag 07/16/24 Z11.3 - Encounter for screening for infections with a predominantly sexual mode of transmission Syphilis Screen 07/16/24 Z11.3 - Encounter for screening for infections with a predominantly sexual mode of transmission CT NG by PCR 07/16/24 Z20.2 - Contact with and (suspected) exposure to infections with a predominantly sexual mode of transmission Medications: New pioglitazone 15 mg PO DAILY 30 tabs 1RF 30 days E11.9 - Type 2 diabetes mellitus without complications, Z79.4 - [facility] (current) use of insulin Refilled tramadol 50 mg PO BID 14 tabs 0RF Pain 7 days M54.2 - Cervicalgia cetirizine 10 mg PO DAILY PRN 90 tabs 2RF allergy symptoms 90 days J45.41 - Moderate persistent asthma with (acute) exacerbation, R06.2 - Wheezing fenofibrate nanocrystallized 48 mg PO DAILY 90 tabs 2RF E78.5 - Hyperlipidemia, unspecified blood sugar diagnostic (FreeStyle Precision Steffen Strips) As directed once daily 50 ea 6RF E11.9 - Type 2 diabetes mellitus without complications, Z79.4 - [facility] (current) use of insulin atorvastatin 40 mg PO BEDTIME 90 tabs 2RF E78.5 - Hyperlipidemia, unspecified blood sugar diagnostic (FreeStyle Precision Steffen Strips) As directed once daily 50 ea 6RF E11.9 - Type 2 diabetes mellitus without complications, 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 Patient Instructions: Goal: Blood pressure to be below 140/90, A1c to be below 7.0, LDL to be below 100 Barriers: Adherence to physical activity and healthy eating habits Coding Level of Care Code Est Pt Level 4 (24046) Diagnoses Type 2 diabetes mellitus without complication, with long-term current use of insulin E11.9; Z79.4 Diabetes mellitus penitentiary 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
[2024-07-16 11:16] VITALS: BP 122/74; PULSE 77; O2SAT 97; BMI 31.8
== END 2024-07-16 11:58 | disposition home or self-care (01) ==
PROVIDERS: PCP Physician Assistant; Visit Provider Physician Assistant
DX: E11.9 Type 2 diabetes mellitus without complications (principal); Z79.4 Long term (current) use of insulin; I10 Essential (primary) hypertension; K21.00 Gastro-esophageal reflux disease with esophagitis, without bleeding; E78.5 Hyperlipidemia, unspecified

== ENCOUNTER → 2024-07-16 11:08 | Outpatient (BNVA) | payer OTHER, SELFPAY | PROVIDERS: PCP Physician Assistant; Visit Provider Physician Assistant | DX: E11.9 Type 2 diabetes mellitus without complications (principal); Z79.4 Long term (current) use of insulin; I10 Essential (primary) hypertension; K21.00 Gastro-esophageal reflux disease with esophagitis, without bleeding; E78.5 Hyperlipidemia, unspecified | CPT/HCPCS: 99212 ==

== ENCOUNTER 2024-08-26 09:13 | Outpatient (REF) | payer OTHER, SELFPAY ==
[2024-08-26] MEDS: gadobutroL 10 ML VIAL IVPUSH (10:17)
[2024-08-26 14:11] LABS: CT PCR NOT DETECTED (Not Detect.); NG PCR NOT DETECTED (Not Detect.)
[2024-08-27 08:33] LABS: HIV AB/AG Nonreactive (Nonreactive); HIV Num 1 0.05 S/CO (0.00-0.99)
[2024-08-27 08:44] LABS: Syphilis Screen Nonreactive (Nonreactive)
== END 2024-08-26 09:14 | disposition home or self-care (01) ==
LOC: HO.MRI 09:13
PROVIDERS: PCP Physician Assistant; Visit Provider Internal Medicine Gastroenterology
DX: R93.3 Abnormal findings on diagnostic imaging of other parts of digestive tract (principal); Z20.2 Contact with and (suspected) exposure to infections with a predominantly sexual mode of transmission; Z11.4 Encounter for screening for human immunodeficiency virus [HIV]
CPT/HCPCS: 74183; 86780; 87389; 87491; 87591; A9585

== ENCOUNTER 2024-09-18 11:00 | Outpatient (RCR) | payer OTHER, SELFPAY ==
--- NOTE | 2024-07-15 12:07 | MHC.PT.EP ---
[facility] [place] [facility] [place] [facility] [address] Christy Chun [address] [phone] F: [phone] F: [phone] F: [phone] F: [phone] Physical Therapy Plan of Care Date of Evaluation: 07/15/24 Date of Surgery: Diagnosis: thoracic spine pain - bilateral arm pain. Assessment: Patient is a 59 year old R handed female who presents with s/s consistent with thoracic spine pain, bilateral shoulder pain. She is disabled and not working and is fairly sedentary at this time. Patient past medical history is complex and includes asthma, fibromyalgia, diabetes, and arthritis as well as obesity. Current impairments include pain, posture, ROM, strength, activity tolerance and functional mobility. Functional limitations include decreased ability to lift, dress, sleep, carry, push and pull. Patient is motivated with good rehab potential. Skilled PT will address impairments and functional limitations in order to achieve goals. 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 Manual therapy to restore motion and function. Therapeutic exercise to improve strength and flexibility. Neuromuscular re-education for posture and balance. Therapeutic activities to return to functional activities of daily living. Electronically signed by: Efrain Ayoub, PT Please sign and return to therapist. Thank you for your referral.
--- NOTE | 2025-01-15 07:35 | MHC.PT.DC ---
[facility] [place] [facility] [place] [facility] [place] [facility] [address] Christy Chun [address] [phone] F: [phone] F: [phone] F: [phone] F: [phone] Physical Therapy Discharge Report Diagnosis: thoracic spine pain - bilateral arm pain. Date of Surgery: Date of Evaluation: 07/15/24 Date of Discharge: 10/17/24 Treatments to Date: 8 Cancellations to Date: No Shows to Date: Discharge Status: Improved Function Independent with HEP Discharge Summary: 09/18/24: pt progressed well and met STG. However pain persists and she is limited by her level of pain daily. She still has pain with sleeping and with ADLS her pain level is above 5/10 daily per her report. We reviewed HEP and she notes intended compliance and willingness to continue exclusively with HEP At this time. we will d/c to HEP. 09/16; Pt performed all exs with modified to arthur due to pain. NV try IFC for pain relief. 09/09/24: pt notes significant pain still with no progress. we discussed IFC and will try next visit to manage pain. 09/02/24: pt notes having more pain for the last several days. we held progression as a result. 08/19; Pt has reduced L c/s rotation. Pt stated pain is all over and certain movements make it worse. 08/12/24: pt progressing well with skilled PT. we will progress functional activities and standing strength intervention nv. 08/06/24: pt progressing slowly. some pain with bridging so we held further reps. 07/22/24: pt progressing well with skilled PT. no adverse reaction. assess response and progress as tolerated. Patient is a 59 year old R handed female who presents with s/s consistent with thoracic spine pain, bilateral shoulder pain. She is disabled and not working and is fairly sedentary at this time. Patient past medical history is complex and includes asthma, fibromyalgia, diabetes, and arthritis as well as obesity. Current impairments include pain, posture, ROM, strength, activity tolerance and functional mobility. Functional limitations include decreased ability to lift, dress, sleep, carry, push and pull. Patient is motivated with good rehab potential. Skilled PT will address impairments and functional limitations in order to achieve goals. Electronically signed by: Efrain Ayoub, PT Please sign and return to therapist. Thank you for your referral.
== END 2025-01-15 07:35 | disposition home or self-care (01) ==
LOC: HO.PTCHIC 11:00
PROVIDERS: PCP Physician Assistant; Visit Provider Internal Medicine
DX: M54.2 Cervicalgia (principal); M54.6 Pain in thoracic spine; M79.601 Pain in right arm; M79.602 Pain in left arm
CPT/HCPCS: 97110; 97140; 97163

== ENCOUNTER 2024-11-04 10:26 | Outpatient (AMB) | payer OTHER, SELFPAY ==
[2024-11-04 10:29] VITALS: BP 124/82; PULSE 72; O2SAT 98; BMI 32.6
--- NOTE | 2024-11-04 10:29 | MHC.OFFVIS ---
Vital Signs 11/04/24 10:29 Height 5 ft 6 in Weight 201 lb 11.567 oz BMI 32.6 BP 124/82 Blood Pressure Location Rt brachial Position Sitting Pulse 72 Pulse Source Pulse Oximeter Pulse Oximetry (%) 98 Oxygen Delivery Method Room Air Intake Visit Reasons: Pulmonary Nodules Allergies seafood Allergy (Unknown, Verified 11/04/24 10:33) Unknown dulaglutide [From Trulicity] Adverse Reaction (Intermediate, Verified 11/04/24 10:33) Diarrhea metformin Adverse Reaction (Intermediate, Verified 11/04/24 10:33) GAstric upset lisinopril Adverse Reaction (Unknown, Verified 11/04/24 10:33) cough HPI Comments Details: The patient is a 59-year-old woman with a known history of asthma moderate severity who apparently has been having more difficulties in the last several months. The patient has been complaining of increasing chest tightness and shortness of breath. She has had chest x-rays demonstrating pulmonary nodules some which appeared to be calcified suggesting of granulomas. Therefore she has been concerned about the findings and a pulmonary referral was placed. On further questioning the patient denies any night sweats or any hemoptysis. She denies ever been diagnosed with tuberculosis or anybody close to her. She denies being any high risk situation work tuberculosis is a concern. She did have a CT scan of the chest back in April 2021 which I personally reviewed with the patient. She had multiple subcentimeter calcified nodular densities both in the lungs and also in the spleen suggesting of an infectious process that she had an and she was able to overcome. Therefore, will test the patient for latent tuberculosis. in addition to that she does have a non calcified right middle lobe subpleural pulmonary nodule that was identified back in April 2021. the patient is concerned because there is a family history of lung cancer in the family. Will go ahead and repeat the CT scan a year from her last film will be April 2022. from an asthma standpoint the patient appears to be well. Will go ahead and order allergy testing and blood work to further address her asthma phenotype. It appears that the Advair is sufficient right now. In addition, the patient has been having some daytime drowsiness. Her Pelham score is elevated 9/24. The patient also has some cardiovascular risk factors including diabetes. She did undergo a home sleep study. She does not have the results as of yet. Will discuss in further when she comes in for follow-up visit. 05/25/2022 the patient is here for a pulmonary follow-up visit. Overall she is feeling better. Denies any significant chest pains or shortness breath at this time. She did undergo a repeat CT scan which was reassuring demonstrating stable calcified nodular densities. In addition to that her blood work was reassuring with a negative T spot ruling out tuberculosis. No other parenchymal disease noted on her CT scan. The patient did undergo home sleep study which was reassuring without any evidence of sleep apnea at this time the patient continues use the Advair with good response and also has allergy medicines. 11/04/2024 the patient is here for a pulmonary follow-up visit. Overall she is doing well. She continues with respiratory medications with good effect. She does have significant abdominal discomfort she is following closely with GI. In addition to that she had a CT scan of the chest back in 04/16/2022 demonstrating a small subcentimeter pulmonary nodule. I personally reviewed the CT scan with the patient. We also tried looking at a CT scan of the abdomen to see we had enough lung cuts to be able to see the nodule but that was not successful. She does have a history of smoking and also positive family history of lung cancer therefore, will have her repeat another CT scan to make sure there stability of the nodule. If no further changes in the nodule then no additional serial imaging warranted. The patient will continue with respiratory therapy will follow-up in a year's time. If any issues arise she can always call for an earlier assessment. [facility] Medical History History of panic attacks Asthma Anal fissure Anal pain Pulmonary nodules Hx of renal calculi Flu-like symptoms Spondylosis of lumbar spine Fibromyalgia Dyslipidemia Obesity, Class I, BMI 30-34.9 Nephrolithiasis Recurrent Clostridioides difficile infection Hx of thyroid nodule Back pain Arthritis Depression Anxiety Type 2 diabetes mellitus HLD (hyperlipidemia) GERD (gastroesophageal reflux disease) HTN (hypertension) Surgical History History of esophagogastroduodenoscopy (EGD) Hx of cosmetic surgery Hx of tonsillectomy Hx of section Hx of lithotripsy Hx of endoscopy Hx of colonoscopy (~11/2016) S/P anal fissurectomy H/O hemorrhoidectomy Hx laparoscopic cholecystectomy S/P left oophorectomy H/O partial thyroidectomy (~2016) History of removal of laparoscopic gastric banding device (~2015) History of abdominoplasty History of colonoscopy History of laparoscopic adjustable gastric banding (~2010) History of bilateral breast reduction surgery (~2008) History of hysterectomy Family History Father Diabetes Hypertension Depression Mother Lung cancer Diabetes Mental health disorder Brother HIV (human immunodeficiency virus infection) Depression Diabetes Sister Hypertension Diabetes Mental health disorder Daughter Mental health disorder Son Mental health disorder Social History Household Members: Children Housing: House Do you presently have visiting nurse or other home services: Yes Alcohol intake: current Alcohol intake frequency: holidays/special occasions only Patient Tobacco Use Status: Former Tobacco user e-Cigarette/Vaping Use: Never Used Second Hand Smoke Exposure: No Substance Use Type: Marijuana Advance Directives Date on File: 02/06/24 service: No Current occupational status: disabled Cognitive needs: No Hearing needs: No Vision needs: Yes Review of Systems Const Reports daytime sleepiness, Denies excessive sweating, Denies fever(s) and Denies weight loss Eyes Denies change in vision ENT Denies change in voice, Reports nasal congestion and Reports nasal discharge Card Denies chest pain and Reports dyspnea on exertion Resp Reports cough, Denies hemoptysis, Reports dyspnea on exertion and Reports wheezing GI Reports dyspepsia and Reports heartburn Skin/Breast Denies rash Neuro Reports no additional complaints Endo Denies excessive sweating Aller/Immun Reports wheezing Physical Exam Vital Signs: Last Vital Signs Pulse 72 11/04/24 10:29 BP 124/82 11/04/24 10:29 Pulse Ox 98 11/04/24 10:29 Oxygen Delivery Method Room Air 11/04/24 10:29 BMI result Body Mass Index 32.6 Const General: cooperative Neck Neck: Yes normal visual inspection Chest Chest palpation & inspection: normal inspection of the chest Resp Effort & Inspection: normal respiratory effort Auscultation: diminished lung sounds Cardio Rate: regular rate Rhythm: regular rhythm Heart sounds: S1 normal heart sound present and S2 normal heart sound present GI Inspection: Yes normal to inspection Skin Rashes: no rashes Extrem General: Yes no clubbing, cyanosis or edema Assessment & Plan Assessment & Plan (1) Asthma: Code(s): J45.909 - Unspecified asthma, uncomplicated Category: Medical Qualifiers: Asthma complication type: uncomplicated Asthma persistence: persistent Asthma severity: moderate Qualified Code(s): J45.40 - Moderate persistent asthma, uncomplicated (2) Pulmonary nodules: Code(s): R91.8 - Other nonspecific abnormal finding of lung field Category: Medical (3) Pulmonary nodule: Code(s): R91.1 - Solitary pulmonary nodule Category: Medical Plan Continue Advair short-acting beta agonist as needed continue antihistamines as needed consider singular CT chest follow-up in 1 year or sooner if she develops any worsening symptoms Orders: Orders CT chest wo IV con Today R91.1 - Solitary pulmonary nodule Medications: New fluticasone propion-salmeterol 115-21 mcg/actuation (Advair HFA) 2 puffs inhalation Q12H 12 grams 11RF 30 days Refilled albuterol sulfate 90 mcg/actuation 2 puffs inhalation QID 8.5 grams 11RF 30 days J45.20 - Mild intermittent asthma, uncomplicated Coding Level of Care Code Est Pt Level 4 (15373) Diagnoses Moderate persistent asthma without complication J45.40 Asthma complication type: uncomplicated Asthma persistence: persistent Asthma severity: moderate Pulmonary nodules R91.8 Pulmonary nodule R91.1 Time Spent (min) 18
--- OUTSIDE RECORDS SUMMARY | 2024-11-04 10:51 | XMS_ITS | Patient Health Record ---
[facility] Address [address] [facility] 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 Name Role Phone Silvino Andujar Primary Care Provider Unavailab Jose Vanegasmie Unavailable [phone] Allergies Allergen (clinical drug ingredient) Drug/Non Drug Allergy documented on EMR Reaction Allergy Type Onset Date Status lisinopril Lisinopril Unknown Drug Allergy Activ e Shellfish (FN) Shellfish-derived Products Unknown Drug Allergy Active Results Component Value Reference Range Notes X ray : Foot, left 3V Reviewed date:11/28/2023 01:22:32 PM Interpretation:See Examination above Performing Lab: Notes/Report: See Examination above HEMOGLOBIN A1C (GLYCOHEMOGLO BIN) Reviewed date:04/22/2024 10:16:20 AM Interpretation: Performing Lab: Notes/Report: HEMOGLOBIN A1C (HH) 6.3 HEMOGLOBIN A1C (GLYCOHEMOGLO BIN) Reviewed date:11/28/2023 12:49:08 PM Interpretation: Performing Lab: Notes/Report: HEMOGLOBIN A1C (HH) 6.5 Reason For Referral No Information Medications Medication SIG (Take, Route, Frequency, Duration) Notes Start Date End Date Status Flovent HFA 110 MCG/ACT Inhalation for 30 Days Active Omeprazole 40 MG Oral for 90 Days Active Pyridoxine HCl 50 MG 1 tablet Orally for 30 day(s) 11/22/2023 Active Physical Therapy . . . 2-3x/week for 3- 4 weeks 04/22/2024 Active Polymyxin B-Trimethoprim 31194-7.1 UNIT/ML PLACE 1 DROP INTO THE EYE(S) EVERY 4 HOURS FOR 7 DAYS WHILE AWAKE DO NOT EXCEED 6 DOSES IN 24 HOURS Ophthalmic for 12 Days Active metFORMIN HCl 1000 MG Oral for 90 Not-Taking FreeStyle Precision Steffen System w/Device as directed 11/22/2023 Active Trulicity 0.75 MG/0.5ML Subcutaneous for 28 Not-Taking Acetaminophen Extra Strength 500 MG TAKE 2 TABLETS ORALLY 4 TIMES A DAY NEEDED FOR FEVER OR PAIN Oral for 2 Days Active Fluticasone Propionate 50 MCG/ACT SPRAY 2 SPRAYS INTRANASALLY DAILY Nasal for 30 Days Not-Taking Albuterol Sulfate HFA 108 (90 Base) MCG/ACT Inhalation for 25 Days Active Albuterol Sulfate (2.5 MG/3ML) 0.083% Inhalation for 12 Days Act patel Cholecalciferol 11/22/2023 Act patel Fenofibrate 48 MG TAKE 1 TABLET BY LALITHA TH DAILY Oral for 90 Days Active Physical Therapy . . . 2-3x/week for 3- 4 weeks 01/02/2024 Active Fluticasone Propionate HFA 110 MCG/ACT INHALE 1 PUFF TWICE DAILY FOR 30 DAYS Inhalation for 60 Active Night Splint AFO - L1930 1 wear at rest for 30 days Active Cetirizine HCl 10 MG Oral for 90 Days Active Telmisartan 20 MG Oral for 90 Days Active Ibuprofen 800 MG 1 tablet with food o r milk as needed Orally every 8 hrs 11/22/2023 Active Famotidine 40 MG Oral for 90 Days Active Dicyclomine HCl 20 MG Oral for 10 Days Active Trimethoprim 11/22/2023 Active Denta 5000 Plus 1.1 % Dental for 21 Active Sucralfate 1 GM/10ML Oral for 30 Active Vitamin B-6 50 MG Oral for 90 Active Citalopram Hydrobromide 20 MG Oral for 30 Days Active Zolpidem Tartrate 10 MG TAKE 1 TABLET BY MOUTH EVERYDAY AT BEDTIME Oral for 30 Days Active clonazePAM 1 MG Oral for 30 Days Active Atorvastatin Calcium 40 MG TAKE 1 TABLET BY MOUTH EVERYDAY AT BEDTIME Oral for 90 Days Active Gabapentin 400 MG Oral for 90 Days Active FreeStyle Precision Steffen Test 11/22/2023 Active traMADol HCl 50 MG TAKE 1 TABLET BY LALITHA TH EVERY DAY FOR 10 DAYS Oral for 10 Days Active Ozempic (1 MG/DOSE) Active Immunizations Vaccine Route Administration Date Status Comme nts Influenza Unknown 06/28/2023 Administered Social History Tobacco Use: Social History Observation Description Date Details (start date - stop date) Former Smoker NA - NA Tobacco Use/Smoking Question Answer Notes Are you a: former smoker Additional Findings: Tobacco Non-User Current no n-smoker Alcohol Screen Question Answer Notes Did you have a drink contain ing alcohol in the past year? Yes How often did you have a dri nk containing alcohol in the past year? Monthly or less (1 point) Points 1 Interpretation Negative Tobacco use other than smoking: Question Answer Notes Are you an other tobacco user? No Problems Problem Type SNOMED Code ICD Code Onset Dates Problem Status W/U Status Risk Notes Problem Polyneuropathy due to type 2 diabetes mellitus (063098365) Type 2 diabetes mellitus with diabetic polyneuropathy (E11.42) Active confirmed Problem Interstitial myositis (83208361) Interstitial myositis of left foot (M60.172) Active confirmed Vital Signs Blood pressure diastolic 75 mm Hg 06/22/2024 Height 5ft6in in 06/22/2024 Blood pressure systolic 123 mm Hg 06/22/2024 Weight 196 lbs 06/22/2024 BMI 31.63 kg/m2 06/22/2024 Procedures Procedure Date Ordered Date Performed Result Body Sit e ,S3884-BXI TENDON SHEATH/LIGAMENT 01/02/2024 N/A ,[id number] TENDON SHEATH/LIGAMENT 02/13/2024 N/A 22888,[id number] TENDON SHEATH/LIGAMENT 04/22/2024 N/A Encounters Encounter [facility] Date [facility] [address] [facility]/28/[facility]23 Sandra Black Pain in left foot M79.672 ; Plantar fasciitis of left foot M72.2 ; Calcaneal spur, left foot M77.32 ; Interstitial myositis of left foot M60.172 and Bursitis of left foot M77.[address] [address] 01/02/2024 Sandra Black Pain in left foot M79.672 ; Plantar fasciitis of left foot M72.2 ; Calcaneal spur, left foot M77.32 ; Interstitial myositis of left foot M60.172 ; Bursitis of left foot M77.52 and Type 2 diabetes mellitus with diabetic polyneuropathy E11.[address] [address] 02/13/2024 Sandra Black Pain in left foot M79.672 ; Interstitial myositis of left foot M60.172 ; Plantar fasciitis of left foot M72.2 ; Calcaneal spur, left foot M77.32 ; Bursitis of left foot M77.52 and Type 2 diabetes mellitus with diabetic polyneuropathy E11.42 [facility] [address] [place] [address] 04/22/2024 Sandra Black Interstitial myositi s of left foot M60.172 ; Gastrocnemius equinus of left lower extremity M62.462 ; Pain in left foot M79.672 ; Plantar fasciitis of left foot M72.2 ; Calcaneal spur, left foot M77.32 ; Bursitis of left foot M77.52 and Type 2 diabetes mellitus with diabetic polyneuropathy E11.[address] [address] 06/22/2024 Sandra Black Gastrocnemius equinu s of left lower extremity M62.462 ; Plantar fasciitis of left foot M72.2 ; Interstitial myositis of left foot M60.172 ; Pain in left foot M79.672 ; Calcaneal spur, left foot M77.32 ; Bursitis of left foot M77.52 and Type 2 diabetes mellitus with diabetic polyneuropathy E11.[address] [address] 11/22/2023 Sandra Black [address] [address] 11/28/2023 Sandra Black [address] [place] [address] 02/14/2024 Sandra Black [address] [address] 08/31/2024 Sandra Black Assessments Encounter Date Diagnosis (ICD Code) Assessment Notes Treatment Notes Treatment Clinical Notes Section Notes 11/28/2023 Pain in left foot (ICD-10 - M79.672) 11/28/2023 Plantar fasciitis of left foot (ICD-10 - M72.2) Patient Educated with: HEEL CORD STRETCHES.pdf (HEEL CORD STRETCHES.pdf ) Patient Educated with: RICE THERAPY.pdf (RICE THERAPY.pdf) 01/02/2024 Pain in left foot (ICD-10 - M79.672) 01/02/2024 Plantar fasciitis of left foot (ICD-10 - M72.2) Patient Educated with: INJECTIONTHER APY.pdf (INJECTIONTHE RAPY.pdf) 02/13/2024 Pain in left foot (ICD-10 - M79.672) 02/13/2024 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.172) 04/22/2024 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.172) 04/22/2024 Gastrocnemius equinus of left lower extremity (ICD-10 - M62.462) 06/22/2024 Plantar fasciitis of left foot (ICD-10 - M72.2) 06/22/2024 Gastrocnemius equinus of left lower extremity (ICD-10 - M62.462) 06/22/2024 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.172) 04/22/2024 Pain in left foot (ICD-10 - M79.672) 02/13/2024 Plantar fasciitis of left foot (ICD-10 - M72.2) Patient Educated with: INJECTIONTHER APY.pdf (INJECTIONTHE RAPY.pdf) 01/02/2024 Calcaneal spur, left foot (ICD-10 - M77.32) 11/28/2023 Calcaneal spur, left foot (ICD-10 - M77.32) 11/28/2023 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.172) 02/13/2024 Calcaneal spur, left foot (ICD-10 - M77.32) 01/02/2024 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.172) 04/22/2024 Plantar fasciitis of left foot (ICD-10 - M72.2) Patient Educated with: INJECTIONTHER APY.pdf (INJECTIONTHE RAPY.pdf) 06/22/2024 Pain in left foot (ICD-10 - M79.672) 06/22/2024 Calcaneal spur, left foot (ICD-10 - M77.32) 04/22/2024 Calcaneal spur, left foot (ICD-10 - M77.32) 01/02/2024 Bursitis of left foot (ICD-10 - M77.52) 02/13/2024 Bursitis of left foot (ICD-10 - M77.52) 11/28/2023 Bursitis of left foot (ICD-10 - M77.52) 01/02/2024 Type 2 diabetes mellitus with diabetic polyneuropathy (ICD-10 - E11.42) 02/13/2024 Type 2 diabetes mellitus with diabetic polyneuropathy (ICD-10 - E11.42) 04/22/2024 Bursitis of left foot (ICD-10 - M77.52) 06/22/2024 Bursitis of left foot (ICD-10 - M77.52) 06/22/2024 Type 2 diabetes mellitus with diabetic polyneuropathy (ICD-10 - E11.42) 04/22/2024 Type 2 diabetes mellitus with diabetic polyneuropathy (ICD-10 - E11.42) Plan Of Treatment Pending Test Test Name Order Date ,[id number] TENDON SHEATH/LIGAMENT 0 01/02/202451000,[id number] TENDON SHEATH/LIGAMENT 0 02/13/202423046,P4133-EYX TENDON SHEATH/LIGAMENT 0 04/22/2024 Next Appt Details Provider Name:Sandra Garcia , 12/03/2024 02:45:00 PM, [address] [place], [address], Insurance Providers Payer Name Payer Address Payer Phone Subscriber Number Group Number Insured Name Patient Relationship to Insured Coverage Start Date Coverage End Date [facility] [employer] Claims [address] [facility] [place] [phone] [id number] Debra Mandel Self - patient is the insured Medical (General) History Medical History History ICD Code Anxiety Arthritis asthma Back,Hip,and Knee pain CAD (Cholesterol) covid-19 Depression Diabetic Diverticulosis Fibromyalgia Headaches/Migraines High blood pressure Stomach ulcer thyroid Chicken pox Surgical History Surgery Date(Month/Year) Hospitalization History Reason Date(Month/Year) [facility] [facility]- Stomach pain 06/18/24
--- OUTSIDE RECORDS SUMMARY | 2024-11-04 10:51 | XMS_ITS ---
Author Organization [facility] Address [address] [place] [address] Care Team Providers Care Chef Assistant Name Role Phone Silvino Andujar Primary Care Provider Unavailab Sandra Vanegas Unavailable [phone] Encounters Encounter Location Date Provider Diagnosis [address] [address] 08/31/2024 Sandra Garcia Plan Of Treatment Next Appt Details Provider Name:Sandra Garcia , 12/03/2024 02:45:00 PM, [address] [place] [address], [phone], Progress Notes * Jeannine MENDOZAeDOB:1965 (59 yo F)Acc No.[id number]:08/31/2024 Progress Note Patient:?REJISmith LOUonne Provider:?Sandra Garcia DPM :1965???Age:59 Y???Sex:Female D ate:08/31/2024 Address:[address] [place], [place] [phone] Pcp:Silvino Andujar Subjective: * Chief Complaints: * ??? * Medical History:? Objective: * Vitals:? Assessment: Plan: * Treatment: * Images: * The named appointment provid er may or may not be the originator of this progress note, and it is not deemed complete until electronically signed by the appointment provider. Sign off status: Pending * Provider:?Sandra Garcia DPM Date:?2023 Generated for Dalila ambrose/lAeida/Radha on:?11/04/2024 10:51 AM EST
--- OUTSIDE RECORDS SUMMARY | 2024-11-04 10:51 | XMS_ITS ---
Author Organization [facility] Address [address] [place] [address] Care Team Providers Care Nursing Officer Name Role Phone Silvino Andujar Primary Care Provider Unavailab Sandra Vanegas Unavailable [phone] REASON FOR VISIT same day rs 08/31/24 Encounters Encounter Location Date Provider Diagnosis [address] [address] 08/31/2024 Sandra Garcia Plan Of Treatment Next Appt Details Provider Name:Sandra Garcia , 12/03/2024 02:45:00 PM, [address] [place] [address], [phone], Progress Notes * Jeannine MENDOZAeDOB:1965 (59 yo F)Acc No.[id number]:08/31/2024 Patient:?Debra Mendoza :1965???Age:59 Y???Sex:Female Address:[address] [place], [place] [address] [address] * true * Date:? Generated for Printi ng/Aleida/eTransmitting on:?11/04/2024 10:51 AM EST
--- OUTSIDE RECORDS SUMMARY | 2024-11-04 10:51 | XMS_ITS ---
Author Organization [facility] Address [address] [place] [address] Care Team Providers Care Residential Treatment Staff Name Role Phone Silvino Andujar Primary Care Provider Unavailab Sandra Vanegas Unavailable [phone] Allergies Allergen (clinical drug ingredient) Drug/Non Drug Allergy documented on EMR Reaction Allergy Type Onset Date Status lisinopril Lisinopril Unknown Drug Allergy Activ e Shellfish (FN) Shellfish-derived Products Unknown Drug Allergy Active REASON FOR VISIT Heel pain, At Risk Footcare Medications Medication SIG (Take, Route, Frequency, Duration) Notes Start Date End Date Status Flovent HFA 110 MCG/ACT Inhalation for 30 Days Active Albuterol Sulfate HFA 108 (90 Base) MCG/ACT Inhalation for 25 Days Active Albuterol Sulfate (2.5 MG/3ML) 0.083% Inhalation for 12 Days Act patel Cholecalciferol 11/22/2023 Act patel Fenofibrate 48 MG TAKE 1 TABLET BY LALITHA TH DAILY Oral for 90 Days Active Cetirizine HCl 10 MG Oral for 90 Days Active Citalopram Hydrobromide 20 MG Oral for 30 Days Active Polymyxin B-Trimethoprim 21226-7.1 UNIT/ML PLACE 1 DROP INTO THE EYE(S) EVERY 4 HOURS FOR 7 DAYS WHILE AWAKE DO NOT EXCEED 6 DOSES IN 24 HOURS Ophthalmic for 12 Days Active [employer] Steffen System w/Device as directed 11/22/2023 Active Acetaminophen Extra Strength 500 MG TAKE 2 TABLETS ORALLY 4 TIMES A DAY NEEDED FOR FEVER OR PAIN Oral for 2 Days Active Zolpidem Tartrate 10 MG TAKE 1 TABLET BY MOUTH EVERYDAY AT BEDTIME Oral for 30 Days Active clonazePAM 1 MG Oral for 30 Days Active Atorvastatin Calcium 40 MG TAKE 1 TABLET BY MOUTH EVERYDAY AT BEDTIME Oral for 90 Days Active Gabapentin 400 MG Oral for 90 Days Active FreeStyle Precision Steffen Test 11/22/2023 Active metFORMIN HCl 1000 MG Oral for 90 Not-Taking Trulicity 0.75 MG/0.5ML Subcutaneous for 28 Not-Taking Fluticasone Propionate 50 MCG/ACT SPRAY 2 SPRAYS INTRANASALLY DAILY Nasal for 30 Days Not-Taking traMADol HCl 50 MG TAKE 1 TABLET BY LALITHA TH EVERY DAY FOR 10 DAYS Oral for 10 Days Active Ozempic (1 MG/DOSE) Active Fluticasone Propionate HFA 110 MCG/ACT INHALE 1 PUFF TWICE DAILY FOR 30 DAYS Inhalation for 60 Active Night Splint AFO - L1930 1 wear at rest for 30 days Active Physical Therapy . . . 2-3x/week for 3- 4 weeks 01/02/2024 Active Physical Therapy . . . 2-3x/week for 3- 4 weeks 04/22/2024 Active Vitamin B-6 50 MG Oral for 90 Active Famotidine 40 MG Oral for 90 Days Active Dicyclomine HCl 20 MG Oral for 10 Days Active Trimethoprim 11/22/2023 Active Denta 5000 Plus 1.1 % Dental for 21 Active Sucralfate 1 GM/10ML Oral for 30 Active Omeprazole 40 MG Oral for 90 Days Active Pyridoxine HCl 50 MG 1 tablet Orally for 30 day(s) 11/22/2023 Active Telmisartan 20 MG Oral for 90 Days Active Ibuprofen 800 MG 1 tablet with food o r milk as needed Orally every 8 hrs 11/22/2023 Active Social History Tobacco Use: Social History Observation Description Date Details (start date - stop date) Former Smoker NA - NA Tobacco Use/Smoking Question Answer Notes Are you a: former smoker Additional Findings: Tobacco Non-User Current no n-smoker Tobacco use other than smoking: Question Answer Notes Are you an other tobacco user? No Vital Signs Height 5ft6in in 06/22/2024 Weight 196 lbs 06/22/2024 BMI 31.63 kg/m2 06/22/2024 Blood pressure systolic 123 mm Hg 06/22/20 24 Blood pressure diastolic 75 mm Hg 024 Encounters Encounter Location Date Provider Diagnosis [facility] [place] [address] [place] [address] 06/22/2024 Sandra Garcia Gastrocnemius equinu s of left lower extremity M62.462 ; Plantar fasciitis of left foot M72.2 ; Interstitial myositis of left foot M60.172 ; Pain in left foot M79.672 ; Calcaneal spur, left foot M77.32 ; Bursitis of left foot M77.52 and Type 2 diabetes mellitus with diabetic polyneuropathy E11.42 Assessments Encounter Date Diagnosis (ICD Code) Assessment Notes Treatment Notes Treatment Clinical Notes Section Notes 06/22/2024 Gastrocnemius equinus of left lower extremity (ICD-10 - M62.462) 06/22/2024 Plantar fasciitis of left foot (ICD-10 - M72.2) 06/22/2024 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.172) 06/22/2024 Pain in left foot (ICD-10 - M79.672) 06/22/2024 Calcaneal spur, left foot (ICD-10 - M77.32) 06/22/2024 Bursitis of left foot (ICD-10 - M77.52) 06/22/2024 Type 2 diabetes mellitus with diabetic polyneuropathy (ICD-10 - E11.42) Plan Of Treatment Next Appt Details Follow Up: 4-6 weeks, Reason : Provider Name:Sandra Garcia , 12/03/2024 02:45:00 PM, [address] [place] [address], [id number], Progress Notes * Brittaney MENDOZAOB:1965 (59 yo F)Acc No.[id number]:06/22/2024 Progress Notes Patient:?Debra Mendoza Provider:?Sandra Garcia DPM :1965???Age:59 Y???Sex:Female D ate:06/22/2024 Address:[address] [place], [place] [id number] Pcp:Silvino Andujar Subjective: * Chief Complaints: * ???Heel painAt Risk Footcare * HPI: ???Heel pain:?Nature:?sharp pain , throbbing.?Location:?Proximal plantar aspect of Heel, LEFT.?Duration:?several months.?Onset/Cause:?denies trauma.?Course:?, improved , at approximately 50%.?Aggravated:?standing, walking, walking first thing in the morning/after rest.?Treatments:?rest/alter normal daily activity , stretching , ice , AFO-nightsplint , medication ( motrin ) , change in shoes , corticosteriod injection (3L) , physical therapy (pt only went 1 time).? * ROS:?General/Constitutional:?Nausea?denies.?Vomiting?denies.?Hunger Thirst?admits.?Loss appetite?denies.?Chills?denies.?Fatigue?denies.?Fever?denies.?Night Sweats?denies.?Unexplained weight loss?denies.?Unexplained weight gain?denies.?HEENTM:?Dentures?denies.?Dizziness?denies.?Glasses/contacts?admits.?Retinopathy?de nies.?Blurred/double vision?admits.?TMJ?denies.?Discharge/drainage?denies.?Implants?denies.?Sore throat?denies.?Dental implants?denies.?Hard of hearing ?denies.?Difficulty chewing/swallowing/speaking?admits.?Nose bleeds?denies.?Sore mouth?denies.?Respiratory:?On Oxygen?denies.?Pneumonia/pleurisy?denies.?Bronchitis?denies.?Emphysema?denies.?C oughing?denies.?Cough blood?denies.?Shortness of breath?denies.?Wheezing?admits.?Cardiovascular:?Pacemaker?denies.?MVP?denies.?WPW?denies.?CHF?denies.?Heart attack?denies.?Septal defect?denies.?Rapid beat?denies.?Chest pain ?denies.?Atrial Fib.?denies.?Murmur/Palpitations?denies.?Gastrointestinal:?Hemorrhoids?admits.?Stomach/Abdominal pain?denies.?Dark blood stool?denies.?Irritable bowel ?admits.?Constipation?admits.?Diarrhea?admits.?Hematology:?Swelling?denies.?Clots?denies.?Varicose Veins?denies.?Bruising?denies.?Bleeding problem?denies.?Genitourinary:?Blood urine?admits.?Frequent/Painfu/urination/bladder control?denies.?Kidney stones?admits.?Infection (UTI)?admits.?Nephropathy?denies.?sex trans dis (STD)?denies.?Prostate?denies.?Musculoskeletal:?Hammertoes?denies.?Bunions?denies.?Back Pain?admits.?Muscle Cramps/ Resting?admits.?Muscle cramps / walking?admits.?Generalized aches and pains?admits.?Weakness?denies.?Integ.:?Razo?denies.?Scars?denies.?Corns/calluses?denies.?Ingrown nails?admits.?Painful nails?denies.?Open Sores?denies.?Rashes?denies.?Neurologic:?Difficulty sleeping?admits.?Brain disorder?denies.?Numbness?admits.?Balance trouble?denies.?Confusion?denies.?Fainting/blackouts?denies.?Tingling?denies.?Tr emors?denies.? * Medical History:? * Surgical History:?Denies Pas t Surgical History * Hospitalization/Major Diagno stic Procedure:?[facility] [place], [place] [facility]- Stomach pain 06/18/24 * Family History:?Mother: dece ased, diagnosed with Family history of arthritis, Diabetic - NIDDM, Unspecified heart disease, Other malignant neoplasm of unspecified site.?Father: alive, kidney/liver disease.? * Social History:?Tobacco Use:?Tobacco Use/Smoking?Are you a:?former smoker ?Additional Findings: Tobacco Non-User?Current non-smoker ?Tobacco use other than smoking?Are you an other tobacco user??No ???Miscellaneous:?no Caffeine. ?Children: yes, 3. ?no Exercise. ?Marital status: single. ?Occupation: not working. * Medications:?TakingOzempic ( 1 MG/DOSE) traMADol HCl 50 MG Tablet TAKE 1 TABLET BY MOUTH EVERY DAY FOR 10 DAYS Oral FreeStyle Precision Steffen Test Gabapentin 400 MG Capsule Oral Atorvastatin Calcium 40 MG Tablet TAKE 1 TABLET BY MOUTH EVERYDAY AT BEDTIME Oral clonazePAM 1 MG Tablet Oral Zolpidem Tartrate 10 MG Tablet TAKE 1 TABLET BY MOUTH EVERYDAY AT BEDTIME Oral Citalopram Hydrobromide 20 MG Tablet Oral Cetirizine HCl 10 MG Tablet Oral Polymyxin B-Trimethoprim 72798-3.1 UNIT/ML Solution PLACE 1 DROP INTO THE EYE(S) EVERY 4 HOURS FOR 7 DAYS WHILE AWAKE DO NOT EXCEED 6 DOSES IN 24 HOURS Ophthalmic FreeStyle Good Thing Steffen System w/Device Kit as directed Acetaminophen Extra Strength 500 MG Tablet TAKE 2 TABLETS ORALLY 4 TIMES A DAY NEEDED FOR FEVER OR PAIN Oral Albuterol Sulfate HFA 108 (90 Base) MCG/ACT Aerosol Solution Inhalation Albuterol Sulfate (2.5 MG/3ML) 0.083% Nebulization Solution Inhalation Cholecalciferol Fenofibrate 48 MG Tablet TAKE 1 TABLET BY MOUTH DAILY Oral Flovent HFA 110 MCG/ACT Aerosol Inhalation Omeprazole 40 MG Capsule Delayed Release Oral Pyridoxine HCl 50 MG Tablet 1 tablet Orally Telmisartan 20 MG Tablet Oral Ibuprofen 800 MG Tablet 1 tablet with food or milk as needed Orally every 8 hrsFamotidine 40 MG Tablet Oral Dicyclomine HCl 20 MG Tablet Oral Trimethoprim Denta 5000 Plus 1.1 % Cream Dental Sucralfate 1 GM/10ML Suspension Oral Vitamin B-6 50 MG Tablet Oral Fluticasone Propionate HFA 110 MCG/ACT Aerosol INHALE 1 PUFF TWICE DAILY FOR 30 DAYS Inhalation Night Splint AFO - L1930 1 wear at restPhysical Therapy . . . . 2-3x/weekPhysical Therapy . . . . 2-3x/weekTaking Ozempic (1 MG/DOSE) Taking traMADol HCl 50 MG Tablet TAKE 1 TABLET BY MOUTH EVERY DAY FOR 10 DAYS Oral Taking NovoDynamicsSti-marker Test Taking Gabapentin 400 MG Capsule Oral Taking Atorvastatin Calcium 40 MG Tablet TAKE 1 TABLET BY MOUTH EVERYDAY AT BEDTIME Oral Taking clonazePAM 1 MG Tablet Oral Taking Zolpidem Tartrate 10 MG Tablet TAKE 1 TABLET BY MOUTH EVERYDAY AT BEDTIME Oral Taking Citalopram Hydrobromide 20 MG Tablet Oral Taking Cetirizine HCl 10 MG Tablet Oral Taking Polymyxin B-Trimethoprim 36576-3.1 UNIT/ML Solution PLACE 1 DROP INTO THE EYE(S) EVERY 4 HOURS FOR 7 DAYS WHILE AWAKE DO NOT EXCEED 6 DOSES IN 24 HOURS Ophthalmic Taking Box[employer]entures System w/Device Kit as directed Taking Acetaminophen Extra Strength 500 MG Tablet TAKE 2 TABLETS ORALLY 4 TIMES A DAY NEEDED FOR FEVER OR PAIN Oral Taking Albuterol Sulfate HFA 108 (90 Base) MCG/ACT Aerosol Solution Inhalation Taking Albuterol Sulfate (2.5 MG/3ML) 0.083% Nebulization Solution Inhalation Taking Cholecalciferol Taking Fenofibrate 48 MG Tablet TAKE 1 TABLET BY MOUTH DAILY Oral Taking Flovent HFA 110 MCG/ACT Aerosol Inhalation Taking Omeprazole 40 MG Capsule Delayed Release Oral Taking Pyridoxine HCl 50 MG Tablet 1 tablet Orally Taking Telmisartan 20 MG Tablet Oral Taking Ibuprofen 800 MG Tablet 1 tablet with food or milk as needed Orally every 8 hrsTaking Famotidine 40 MG Tablet Oral Taking Dicyclomine HCl 20 MG Tablet Oral Taking Trimethoprim Taking Denta 5000 Plus 1.1 % Cream Dental Taking Sucralfate 1 GM/10ML Suspension Oral Taking Vitamin B-6 50 MG Tablet Oral Taking Fluticasone Propionate HFA 110 MCG/ACT Aerosol INHALE 1 PUFF TWICE DAILY FOR 30 DAYS Inhalation Taking Night Splint AFO - L1930 1 wear at restTaking Physical Therapy . . . . 2-3x/weekTaking Physical Therapy . . . . 2-3x/weekNot-Taking/PRNmetFORMIN HCl 1000 MG Tablet Oral Trulicity 0.75 MG/0.5ML Solution Pen-injector Subcutaneous Fluticasone Propionate 50 MCG/ACT Suspension SPRAY 2 SPRAYS INTRANASALLY DAILY Nasal Medication List reviewed and reconciled with the patientNot-Taking/PRN metFORMIN HCl 1000 MG Tablet Oral Not-Taking/PRN Trulicity 0.75 MG/0.5ML Solution Pen-injector Subcutaneous Not-Taking/PRN Fluticasone Propionate 50 MCG/ACT Suspension SPRAY 2 SPRAYS INTRANASALLY DAILY Nasal Medication List reviewed and reconciled with the patient * Allergies:?LisinoprilShellfi sh-derived Productsyes[Allergies Verified] Objective: * Vitals:?Ht: 5ft6in, Wt:196, BMI:31.63, Shoe size: 11, BP:123/75 mm Hg, BS: 150, Ht-cm: 167.64 cm, Wt-k.9 kg. * ???Past Orders: ???Lab:HEMOGLOBIN A1C (GLYCO HEMOGLOBIN) (Order Date - 03/02/2024) (Collection Date - 03/02/2024) ? Value Reference Range ?HEMOGLOBIN A1C (HH) 6.3 * Examination: ???Ophthalmology Referral: ?DIABETES EYE EXAM?Heel Pain: ?INSPECTION:? Pain on Palpation to Plantar Fascia med. and central bands, intrinsic musc., infra-calcaneal bursa, and med calc tubercle , LEFT foot, No pain: posterior/superior heel, achilles bursa/tendon, sinus tarsi, peroneals, or with lateral heel compression; no limited STJ ROM, calor, or ecchymosis, LEFT foot, States approximately 50% LESS.?Orthopedic: ?MUSCLE STRENGTH:?5/5 all groups in a symmetrical fashion, B/L.?GAIT ABNORMALITY:?antalgic.?FOOT MORPHOLOGY:? Pes Planus structure, Decreased Ankle joint dorsiflexion ROM, knee extended.?DIGITAL DEFORMITIES:?Digital contracture, PIPJ, 2-5 B/L, incompl-reducible with WB, or to push-up test, no over, nor underlapping.?FOOTWEAR:?shoe gear properties exacerbate patients foot/toe deformity- flat sandal no support or structure.? 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 Plan: * Treatment: * Procedure Codes:? * Preventive Medicine:? ??Counseling:?Discussion:?-13: Office or other outpatient visit for the evaluation and management of an established patient, which required a medically appropriate history and/or examination and LOW level of DECISION MAKING for: 1 STABLE ACUTE UNCOMPLICATED PROBLEM, 2 OR MORE MINOR PROBLEMS, OR 1 STABLE CHRONIC PROBLEM, THAT POSE(S) A LOW RISK FOR MORBIDITY/MORTALITY. The visit on the day of the encounter encompassed interpreting the data and educating the patient as to the nature of their condition, treatment options available according to their individual PMH, meds, allergies, and overall health/living conditions, as well as any potential risks or complications that may occur from a failure to adhere to, and participate in, the recommended course of therapy. The discussion included a complete verbal, and/or written explanation of the examination results, any x-rays taken, the proposed diagnosis, and outline of the treatment plan. A schedule for future care needs was also explained. The patient verbalized an understanding of the instructions at this time and agreed to be an active participant in their treatment. If the patient should think of any questions or concerns after the visit, I have encouraged the patient to call the office.?Heel pain:?Discussed other [place] options for the patients condition, Recomm. Pt go back to physical therapy however pt states she is presently in therapy for a neck and back injury. Pt will continue with present treatment plan consisting of stretching, ice supportive footwear,night splint and altered activity.? * Follow Up:?4-6 weeks * Images: * Sign off status: Completed true * Provider:?Sandra Garcia DPM Date:?2023 Generated for Dalila ng/Faxing/eTransmitting on:?11/04/2024 10:51 AM EST History and Physical Notes * HPI (History of Present Illness) Category Sub-Category Detail Notes Category Not es Heel pain Duration: several months Nature: sharp pain , throbbi ng Location: Proximal plantar asp ect of Heel, LEFT Onset/Cause: denies trauma Aggravated: standing, walking, w alking first thing in the morning/after rest Course: , improved , at appr oximately 50% Treatments: rest/alter normal da gt activity , stretching , ice , AFO- nightsplint , medication ( motrin ) , change in shoes , corticosteriod injection (3L) , physical therapy (pt only went 1 time) Examination Category Sub-Category Detail Notes Category Not es Orthopedic GAIT ABNORMALITY: antalgic FOOT MORPHOLOGY: Pes Planus structure , Decreased Ankle joint dorsiflexion ROM, knee extended FOOTWEAR: shoe gear properties exacerbate patients foot/toe deformity- flat sandal no support or structure DIGITAL DEFORMITIES: Digital contracture , PIPJ, 2-5 B/L, incompl-reducible with WB, or to push-up test, no over, nor underlapping MUSCLE STRENGTH: 5/5 all groups in a symmetrical fashion, B/L Ophthalmology Referral DIABETES EYE EXAM Diabetic Retinopa thy Screening:: Yes Findings of Diabetic Eye Exam:: no retin opathy Heel Pain INSPECTION: Pain on Palpatio n to Plantar Fascia med. and central bands, intrinsic musc., infra-calcaneal bursa, and med calc tubercle , LEFT foot, No pain: posterior/superior heel, achilles bursa/tendon, sinus tarsi, peroneals, or with lateral heel compression; no limited STJ ROM, calor, or ecchymosis, LEFT foot, States approximately 50% LESS
== END 2024-11-04 10:55 | disposition home or self-care (01) ==
PROVIDERS: PCP Physician Assistant; Visit Provider Hospitalist
DX: J45.40 Moderate persistent asthma, uncomplicated (principal); R91.8 Other nonspecific abnormal finding of lung field; R91.1 Solitary pulmonary nodule
CPT/HCPCS: 99214

== ENCOUNTER → 2024-11-04 10:26 | Outpatient (BNVA) | payer OTHER, SELFPAY | PROVIDERS: PCP Physician Assistant; Visit Provider Hospitalist | DX: J45.40 Moderate persistent asthma, uncomplicated (principal); R91.8 Other nonspecific abnormal finding of lung field; R91.1 Solitary pulmonary nodule | CPT/HCPCS: 99212 ==

== ENCOUNTER 2024-11-09 13:32 | Outpatient (AMB) | payer OTHER, SELFPAY ==
[2024-11-09 13:55] VITALS: BP 120/70; PULSE 75; O2SAT 96; BMI 32.3
--- NOTE | 2024-11-09 13:55 | MHC.PC.OV ---
Vital Signs 11/09/24 13:55 Height 5 ft 6 in Weight 200 lb BMI 32.3 BP 120/70 Blood Pressure Location Lt brachial Position Sitting Pulse 75 Pulse Source Pulse Oximeter Pulse Oximetry (%) 96 Oxygen Delivery Method Room Air Intake Visit Reasons: PE/DMII Char Puller Required: No Accompanied by: Self / Same As Patient Allergies seafood Allergy (Unknown, Verified 11/09/24 13:59) Unknown [facility]ul[facility] Adverse Reaction (Intermediate, Verified 11/09/24 13:59) Diarrhea metformin Adverse Reaction (Intermediate, Verified 11/09/24 13:59) GAstric upset lisinopril Adverse Reaction (Unknown, Verified 11/09/24 13:59) cough Medication List - Last Reconciled 11/09/24 by Silvino Andujar PA-C acetaminophen ER (Tylenol Arthritis Pain) 650 mg PO Q12H 30 days albuterol sulfate 90 mcg/actuation 2 puffs inhalation QID 30 days albuterol sulfate 2.5 mg (3 mL) inhalation Q6H PRN 30 days atorvastatin 40 mg PO BEDTIME blood sugar diagnostic (FreeStyle Precision Steffen Strips) As directed once daily blood-glucose meter (FreeStyle Precision Steffen Meter) As directed cetirizine 10 mg PO DAILY PRN 90 days cholecalciferol (vitamin D3) 25 mcg PO DAILY 90 days citalopram 20 mg PO DAILY@0900 clonazepam 2 mg PO BEDTIME clonazepam 1 mg PO DAILY@0900 fenofibrate nanocrystallized 48 mg PO DAILY fluticasone propion-salmeterol 115-21 mcg/actuation (Advair HFA) 2 puffs inhalation Q12H 30 days gabapentin 600 mg PO BID 30 days pantoprazole 40 mg PO BID 90 days pioglitazone 15 mg PO DAILY 30 days semaglutide (Ozempic) 1 mg (0.75 mL) subcut QWEEK 4 weeks sucralfate 1 g PO QIDACHS 90 days telmisartan (Micardis) 20 mg PO DAILY@0900 tramadol 50 mg PO BID 7 days zolpidem 10 mg PO BEDTIME Tobacco use date assessed: 11/09/24 Dental Screening Dental Screen Date: 11/09/24 Did you have a dental visit in the last 12 months?: Yes Did you have a dental problem in the last 6 months where you did not have access to dental care?: No Was dental information given to patient?: Patient has dentist HPI PE/DMII HPI Details Patient is a 59-year-old female here today for routine annual physical.? Patient has a past Conditions history significant for type 2 diabetes, hypertension, obesity, recurrent C diff colitis, moderate persistent asthma, pulmonary nodule, major depressive disorder and generalized anxiety disorder. Concerns--> reports over last 4 days having sinus congestion and headaches and some chest tightness. She feels she is having a sinus infection interrupting her asthma. Usually needs prednisone for exacerbations. Also reports her depression has been a bit worse due to family issue though has been getting a bit better as of lately. She also reports having bright red blood per rectum as of late and has been dealing with constipation. Of note colonoscopy in 2022 did show moderate internal hemorrhoids. CHRONIC MEDICAL CONDITIONS----> .. Type 2 diabetes:? Patient continues with Ozempic and Actos which has offered her good glycemic control. Unfortunately has not lost much weight. Likely attributed to her psychiatric medication. Today's A1c is 6.7 from 7.0. She continues to hold metformin. PLAN: Would like to transition to alternative GLP 1 in hopes to get a bit more weight loss. Unfortunately has not been able to be physically active due to her lumbar spine arthritis pain. She does report a reduction calorie intake though has not noticed much weight loss. . Asthma: Patient's asthma is under fair control. Recently has an upper respiratory illness that is causing her asthma to be a bit worse. She has had multiple exacerbations. Has been recently started on Advair HFA which she feels is helpful. ? . .. Major depressive disorder, generalized anxiety disorder:? Continues to follow a mental therapist and a psychiatrist whom manage her mental health medications.? She feels fairly stable at this time with her mental health medications. Vaccine: Up-to-date with COVID vaccine , tetanus and pneumonia vaccines, needs flu vaccine, Need Shingles vaccine .. Mammogram: Mammogram done in 03/2024 BI-RADS 1. PATTERNMAKER WOOD: Does see a PATTERNMAKER WOOD at [facility]. Has had a hysterectomy Colon cancer screening: Colonoscopy done in April of 2023, no tubular adenoma polyp, repeat 10 years [facility] Medical History History of panic attacks Asthma Anal fissure Anal pain Pulmonary nodules Hx of renal calculi Flu-like symptoms Spondylosis of lumbar spine Fibromyalgia Dyslipidemia Obesity, Class I, BMI 30-34.9 Nephrolithiasis Recurrent Clostridioides difficile infection Hx of thyroid nodule Back pain Arthritis Depression Anxiety Type 2 diabetes mellitus HLD (hyperlipidemia) GERD (gastroesophageal reflux disease) HTN (hypertension) Surgical History History of esophagogastroduodenoscopy (EGD) Hx of cosmetic surgery Hx of tonsillectomy Hx of section Hx of lithotripsy Hx of endoscopy Hx of colonoscopy (~11/2016) S/P anal fissurectomy H/O hemorrhoidectomy Hx laparoscopic cholecystectomy S/P left oophorectomy H/O partial thyroidectomy (~2016) History of removal of laparoscopic gastric banding device (~2015) History of abdominoplasty History of colonoscopy History of laparoscopic adjustable gastric banding (~2010) History of bilateral breast reduction surgery (~2008) History of hysterectomy Family History Father Diabetes Hypertension Depression Mother Lung cancer Diabetes Mental health disorder Brother HIV (human immunodeficiency virus infection) Depression Diabetes Sister Hypertension Diabetes Mental health disorder Daughter Mental health disorder Son Mental health disorder Social History Household Members: Children Housing: House Do you presently have visiting nurse or other home services: Yes Alcohol intake: current Alcohol intake frequency: holidays/special occasions only Patient Tobacco Use Status: Former Tobacco user e-Cigarette/Vaping Use: Never Used Second Hand Smoke Exposure: No Substance Use Type: Marijuana Advance Directives Date on File: 02/06/24 service: No Current occupational status: disabled Cognitive needs: No Hearing needs: No Vision needs: Yes Questionnaire PHQ-9 Over the last 2 weeks, how often have you been bothered by any of the following problems? 1. Little interest or pleasure in doing things: several days 2. Feeling down, depressed, or hopeless: several days 3. Trouble falling or staying asleep, or sleeping too much: several days 4. Feeling tired or having little energy: several days 5. Poor appetite or overeating: not at all 6. Feeling bad about yourself - or that you are a failure or have let yourself or your family down: not at all 7. Trouble concentrating on things, such as reading the newspaper or watching television: nearly every day 8. Moving or speaking so slowly that other people could have noticed. Or the opposite - being so fidgety or restless that you have been moving around a lot more than usual: not at all 9. Thoughts that you would be better off or of hurting yourself in some way: not at all Total score: 7 Depression Screening Interpretation: Positive Depression Screening Follow-up: Existing condition and In treatment Depression Screening Done: Yes 82859 - PHQ-9 Billing: Yes Source: Developed by Drs. Vazquez Holden, Jaye Ryan, Carl Gaona and colleagues, with an educational kalpana from [employer]. Thrive Questionnaire Date Thrive assessed: 11/09/24 I am a: Patient What is your living situation today?: I have a steady place to live Within the past 12 months, did the food you bought not last and you didn't have the money to get more?: Never true Within the past 12 months, did you worry whether your food would run out before you got money to buy more?: Never true Do you have trouble paying for medicines?: No Do you have trouble getting transportation to medical appointments?: No Do you have trouble paying your heating and electricity bill?: No Do you have trouble taking care of your child, family member or friend?: Yes Do you have trouble with day-to-day activities such as bathing, preparing meals, shopping, managing finances, etc.?: Yes Are you currently unemployed and looking for a job?: No Are you interested in more education?: No Please select the resources that you would like help with: None Currently or been in a relationship where the following occur: No concerns reported THRIVE Score: 0 AUDIT C Alcohol Use Questionnaire (AUDIT-C) 1. How often do you have a drink containing alcohol?: Monthly or less 2. How many drinks containing alcohol do you have on a typical day when you are drinking?: 1 or 2 3. How often do you have six or more drinks on one occasion?: Never Total Score: 1 EMIL-7 AMB Questionnaire EMIL-7 Date EMIL - 7 assessed: 01/13/25 Feeling nervous, anxious, or on edge: 1 = Several days Not being able to stop or control worryin = More than half the days Worrying too much about different things: 1 = Several days Trouble relaxin = Several days Being so restless that it is hard to sit still: 0 = Not at all Becoming easily annoyed or irritable: 1 = Several days Feeling afraid as if something awful might happen: 1 = Several days Total EMIL-7 score (0-4 normal; 5-9 mild; 10-14 moderate; 15-21 severe): 7 Source: Developed by Drs. Vazquez Holden, Jaye Ryan, Carl Gaona and colleagues, with an educational kalpana from [employer]. EMIL-7 Assessment Billing EMIL-7 Assessment Tool: EMIL-7 Assessment 67385 Review of Systems Const Denies body aches, Denies chills, Denies excessive sweating, Denies fatigue, Denies fever(s) and Denies headache(s) Eyes Denies blurry vision ENT Denies dysphagia, Denies vertigo, Denies dizziness, Denies headache(s), Denies hearing loss and Denies tinnitus Card Denies chest pain, Denies chest pain with activity, Denies syncope, Denies irregular heart rhythm and Denies dyspnea Resp Denies chest congestion, Denies cough, Denies hemoptysis, Denies dyspnea and Denies wheezing GI Denies abdominal pain, Denies melena, Denies hematochezia, Denies coffee ground emesis, Denies dysphagia, Denies diarrhea, Denies nausea and Denies vomiting Denies urinary frequency, Denies dysuria, Denies urinary hesitancy and Denies urinary urgency Musc Denies arthralgias, Denies limited range of motion, Denies muscle cramps and Denies muscle weakness Skin/Breast Denies rash and Denies skin ulcer Neuro Denies Abnormal speech present, Denies confusion, Denies vertigo, Denies dizziness, Denies syncope, Denies headache(s), Denies memory loss and Denies seizure-like activity Psych Denies anxiety, Denies confusion, Denies depression, Denies memory loss, Denies panic attacks and Denies paranoia Endo Denies excessive sweating, Denies fatigue, Denies flushing, Denies polydipsia and Denies polyuria Aller/Immun Denies wheezing Physical exam (Primary Care) Vital Signs: Last Vital Signs Pulse 75 11/09/24 13:55 BP 120/70 11/09/24 13:55 Pulse Ox 96 11/09/24 13:55 Oxygen Delivery Method Room Air 11/09/24 13:55 BMI result Body Mass Index 32.3 BMI Assessment/Plan discussion: High BMI High, discussed plan: lifestyle, weight reduction and dietary Tobacco/Smoking Status: Tobacco use Status Tobacco use date assessed 11/09/24 11/09/24 13:58 Patient Tobacco Use Status Former Tobacco user 11/09/24 13:58 e-Cigarette/Vaping Use Never Used 11/09/24 13:58 PHQ-9: PHQ-9 Score PHQ-9: Total score 7 11/09/24 13:58 Depression Screening Interpretation: Positive Depression Screening Follow-up: Existing condition and In treatment Thrive Assessment: Date of Thrive Assessment Date Thrive assessed 11/09/24 11/09/24 13:58 Currently or been in a relationship where the following occur: No concerns reported Const General: cooperative, comfortable, no acute distress, alert and awake; No confusion Orientation/consciousness: oriented to person, oriented to place, patient oriented x3 and No confusion HENMT Head: Yes normocephalic Ears: external ears normal and TM's normal bilaterally Face and sinus: No sinus tenderness Mouth: Normal oral and palatal mucosa present and tongue normal Teeth and gingiva: dentition normal and gingiva normal Throat: Yes posterior oropharynx normal, Yes tonsils normal and Yes uvula midline Eyes Conjunctivae: conjunctivae normal Sclerae: sclerae normal Pupils: Equal, round and reactive pupils present EOM: EOMs intact bilaterally Direct Ophthalmoscopy: No no photophobia Neck Neck: Yes no lymphadenopathy, No tender and Yes no JVD Thyroid: Thyroid normal Carotids: no bruits Chest Chest palpation & inspection: no tenderness Resp Effort & Inspection: normal respiratory effort, no audible wheezes, not labored and no stridor Auscultation: no crackles, no rales, no rhonchi and no wheezes Cardio Jugular venous distension: no JVD Rate: regular rate, not bradycardic and not tachycardic Rhythm: regular rhythm Bruits: no carotid bruits Peripheral pulses: Peripheral pulses 2+ throughout GI Inspection: Yes normal to inspection, No abdominal wall ecchymosis and No visible herniation Palpation (GI): Soft to palpation, nontender, no guarding, not rigid and No hepatosplenomegaly present Auscultation: normoactive bowel sounds General: Yes no CVA tenderness Back/Spine/Pelvis Back: no CVA tenderness and No back tenderness Cervical Spine: cervical ROM normal Thoracic/Lumbar Spine: thoracic and lumbar spine normal to inspection, straight leg raise negative bilaterally, No thoraco-lumbar ROM limited and No lumbar spinal tenderness Skin Lesions: no lesions Rashes: no rashes Wounds: no wounds Neuro General: oriented to person, oriented to place, patient oriented x3, CN's II-XI intact bilaterally and No confusion Cranial nerves: Yes Equal, round and reactive pupils present and Yes Normal accommodation reflex present Cognition (Neuro): normal cognition Speech: No Abnormal speech present Gait exam (Neuro): Normal gait present Motor exam (neuro): 5/5 motor strength present throughout Extrem Right upper extremity: full ROM; no cyanosis Left upper extremity: full ROM; no cyanosis Right lower extremity: no edema Left lower extremity: no edema Psych Appearance: grossly normal Mental Status: mental status grossly normal Affect: normal affect Attitude: cooperative Thought process: Normal thought process present Coding Level of Care Code Est Pt Prev Care 40-64y(57109) Diagnoses Annual physical exam Z00.00 Type 2 diabetes mellitus without complication, with long-term current use of insulin E11.9; Z79.4 Diabetes mellitus assisted insulin use: with senior network administrator use Diabetes mellitus complication status: without complication Essential hypertension I10 Hypertension type: essential hypertension Dyslipidemia E78.5 Drug-induced constipation K59.03 Constipation type: drug induced constipation Spondylosis of lumbar spine M47.816 Acute non-recurrent frontal sinusitis J01.10 Sinusitis location: frontal Chronicity: acute Recurrence: non-recurrent MDD (major depressive disorder), recurrent episode, moderate F33.1 Obesity, Class I, BMI 30-34.9 E66.9 Additional Codes EMIL-7 Assessment Billing - EMIL-7 Assessment Tool: EMIL-7 Assessment 87835 ([id number]) PHQ-9 - 32729 - PHQ-9 Billing: Yes ([id number]) Assessment & Plan Assessment & Plan (1) Annual physical exam: Code(s): Z00.00 - Encounter for general adult medical examination without abnormal findings Category: Medical Plan: As scheduled (2) Type 2 diabetes mellitus: Code(s): E11.9 - Type 2 diabetes mellitus without complications Category: Medical Qualifiers: Diabetes mellitus assisted insulin use: with senior network administrator use Diabetes mellitus complication status: without complication Qualified Code(s): E11.9 - Type 2 diabetes mellitus without complications; Z79.4 - [facility] (current) use of insulin Plan: Patient's type 2 diabetes well controlled with current GLP 1 in Actos. She would like to transition to alternative GLP 1 to try to maintain more weight loss. Goal A1c is to be below 7.0 (3) HTN (hypertension): Code(s): I10 - Essential (primary) hypertension Category: Medical Qualifiers: Hypertension type: essential hypertension Qualified Code(s): I10 - Essential (primary) hypertension Plan: Patient's blood pressure acceptable today in office. Will continue her current dose of antihypertensive medication with goal blood pressure to remain below 140/90 (4) Dyslipidemia: Code(s): E78.5 - Hyperlipidemia, unspecified Category: Medical Plan: Most recent lipid panel showing elevation though at that time patient has stopped using atorvastatin 40 mg. She has been consistent on statin therapy over the last few months and will recheck her fasting lipid panels to assure normal LDL. Goal LDL to be below 100 (5) Constipation: Code(s): K59.00 - Constipation, unspecified Category: Medical Qualifiers: Constipation type: drug induced constipation Qualified Code(s): K59.03 - Drug induced constipation Plan: Has been experiencing constipation and bright red blood per rectum. Of note does have internal hemorrhoids. Likely causes the GLP 1. Will transition to a different GLP 1. Will supply patient with MiraLax liquid that helps often stool. Advised on Sitz baths. (6) Spondylosis of lumbar spine: Code(s): M47.816 - Spondylosis without myelopathy or radiculopathy, lumbar region Category: Medical Plan: Patient has a long history of lower lumbar spine pain has done physical therapy and has gotten injections in her lower back though have not given her any long-lasting relief. Does use tramadol on a p.r.n. basis with good relief temporarily. (7) Sinus infection: Code(s): J32.9 - Chronic sinusitis, unspecified Category: Medical Qualifiers: Sinusitis location: frontal Chronicity: acute Recurrence: non-recurrent Qualified Code(s): J01.10 - Acute frontal sinusitis, unspecified Plan: As above patient signs and symptoms consistent with an upper respiratory infection. Will supply patient with prednisone taper an antibiotic in case symptoms worsen. (8) MDD (major depressive disorder), recurrent episode, moderate: Code(s): F33.1 - Major depressive disorder, recurrent, moderate Category: Medical Plan: Patient's PHQ-9 score positive for mild depression which has been existing condition for her. Patient continues to follow a mental health therapist and a psychiatrist. She feels fairly stable on her mental health meds though does have breakthrough depression thoughts in moods. (9) Obesity, Class I, BMI 30-34.9: Code(s): E66.9 - Obesity, unspecified Category: Medical Plan: Patient does understand her BMI is 30 will continue trying to bit physically too her intake diet. She would like to try alternative GLP 1 to help lose weight. Orders: Orders AMB Hemoglobin A1c Today E11.9 - Type 2 diabetes mellitus without complications, Z79.4 - [facility] (current) use of insulin Medications: New polyethylene glycol 3350 (Miralax) Makes 17 g packet in to 8 oz of water and drink daily 17 grams PO DAILY 30 days 30 ea 0RF Constipation K59.00 - Constipation, unspecified azithromycin For 250 mg dose pack: take 500 mg today (day 1), then 250 mg for 4 days (days 2-5) PO 6 tabs 0RF J01.10 - Acute frontal sinusitis, unspecified tirzepatide (Mounjaro) 5 mg (0.5 mL) subcut QWEEK 4 weeks 2 mL 0RF E11.9 - Type 2 diabetes mellitus without complications, Z79.4 - [employer] (current) use of insulin prednisone Take 3 tablets x3 days, 2 tablets x3 days, 1 tablet x3 days 10 mg PO DIRECTED 9 days 18 tabs 0RF J01.10 - Acute frontal sinusitis, unspecified Refilled cholecalciferol (vitamin D3) 25 mcg PO DAILY 90 days 90 caps 1RF F33.1 - Major depressive disorder, recurrent, moderate gabapentin 600 mg PO BID 30 days 60 tabs 3RF M54.2 - Cervicalgia albuterol sulfate 2.5 mg (3 mL) inhalation Q6H 30 days PRN 180 mL 2RF shortness of breath or wheezing J45.20 - Mild intermittent asthma, uncomplicated tramadol 50 mg PO BID 7 days 14 tabs 0RF Pain M54.2 - Cervicalgia On Hold semaglutide (Ozempic) Hold Comment: Doctor's Order 1 mg (0.75 mL) subcut QWEEK 4 weeks 3 mL 6RF E11.9 - Type 2 diabetes mellitus without complications, Z79.4 - penitentiary (current) use of insulin
--- OUTSIDE RECORDS SUMMARY | 2024-11-09 16:30 | XMS_ITS ---
Author Organization [facility] Address [address] [place] [address] Care Team Providers Care Semiconductor Engineer Name Role Phone Silvino Andujar Primary Care Provider Unavailab Sandra Vanegas Unavailable [phone] REASON FOR VISIT same day rs 08/31/24 Encounters Encounter Location Date Provider Diagnosis [address] [id number] 08/31/2024 Sandra Garcia Plan Of Treatment Next Appt Details Provider Name:Sandra Garcia , 12/03/2024 02:45:00 PM, [address] [place] [address], [id number], Progress Notes * Jeannine MENDOZAeDOB:1965 (59 yo F)Acc No.[id number]:08/31/2024 Patient:?Debra Mendoza :1965???Age:59 Y???Sex:Female Address:[address] [place], [place] [address] [id number] * true * Date:? Generated for Printi ng/Faismaelg/eTransmitting on:?11/09/2024 04:30 PM EST
--- OUTSIDE RECORDS SUMMARY | 2024-11-09 16:30 | XMS_ITS | Patient Health Record ---
Author Organization [facility] Address [address] [place] [address] Care Team Providers Care Home Health Attendant Name Role Phone Silvino Andujar Primary Care Provider Unavailab Jose Vanegasmie Unavailable [phone] Allergies Allergen (clinical drug ingredient) Drug/Non Drug [...] 3- 4 weeks 04/22/2024 Active Polymyxin B-Trimethoprim 70636-1.1 UNIT/ML PLACE 1 DROP INTO THE EYE(S) [...] Polyneuropathy due to type 2 diabetes mellitus (442943281) Type 2 diabetes mellitus with diabetic polyneuropathy (E11.42) Active confirmed Problem Interstitial myositis (65950339) Interstitial myositis of left foot (M60.172) Active confirmed Vital Signs Blood pressure diastolic 75 mm Hg 06/22/2024 Height 5ft6in in 06/22/2024 Blood pressure systolic 123 mm Hg 06/22/2024 Weight 196 lbs 06/22/2024 BMI 31.63 kg/m2 06/22/2024 Procedures Procedure Date Ordered Date Performed Result Body Sit e ,T6222-VWB TENDON SHEATH/LIGAMENT 01/02/2024 N/A ,L8116-RHR TENDON SHEATH/LIGAMENT 02/13/2024 N/A 17498,[id number] TENDON SHEATH/LIGAMENT 04/22/2024 N/A Encounters Encounter Location Date [facility] [address] 11/28/2023 Sandra Black Pain in left foot M79.672 ; Plantar fasciitis of left foot M72.2 ; Calcaneal spur, left foot M77.32 ; Interstitial myositis of left foot M60.172 and Bursitis of left foot M77.[address] [address] 01/02/2024 Sandra Black Pain in left foot M79.672 ; Plantar fasciitis of left foot M72.2 ; Calcaneal spur, left foot M77.32 ; Interstitial myositis of left foot M60.172 ; Bursitis of left foot M77.52 and Type 2 diabetes mellitus with diabetic polyneuropathy E11.[address] [address] 02/13/2024 Sandra Black Pain in left foot M79.672 ; Interstitial myositis of left foot M60.172 ; Plantar fasciitis of left foot M72.2 ; Calcaneal spur, left foot M77.32 ; Bursitis of left foot M77.52 and Type 2 diabetes mellitus with diabetic polyneuropathy E11.42 [facility] [address] [place] [address] 04/22/2024 Sandra Black Interstitial myositi s of left foot M60.172 ; Gastrocnemius equinus of left lower extremity M62.462 ; Pain in left foot M79.672 ; Plantar fasciitis of left foot M72.2 ; Calcaneal spur, left foot M77.32 ; Bursitis of left foot M77.52 and Type 2 diabetes mellitus with diabetic polyneuropathy E11.[address] [address] 06/22/2024 Sandra Black Gastrocnemius equinu s of left lower extremity M62.462 ; Plantar fasciitis of left foot M72.2 ; Interstitial myositis of left foot M60.172 ; Pain in left foot M79.672 ; Calcaneal spur, left foot M77.32 ; Bursitis of left foot M77.52 and Type 2 diabetes mellitus with diabetic polyneuropathy E11.[address] [address] 11/22/2023 Sandra Black [address] [address] 11/28/2023 Sandra Black [address] [place] [address] 02/14/2024 Sandra Black [address] [address] 08/31/2024 Sandra Black Assessments Encounter Date Diagnosis [...] Treatment Pending Test Test Name Order Date ,Y7921-ZBO TENDON SHEATH/LIGAMENT 0 01/02/202434416,S0135-QCI TENDON SHEATH/LIGAMENT 0 02/13/202494327,E2442-ZSO TENDON SHEATH/LIGAMENT 0 04/22/2024 Next Appt Details Provider Name:Sandra Garcia , 12/03/2024 02:45:00 PM, [address] [place], [address], Insurance Providers Payer Name Payer Address Payer Phone Subscriber Number Group Number Insured Name Patient Relationship to Insured Coverage Start Date Coverage End Date [employer] [facility] [employer] Claims [address] [facility] [place] [id number] Debra Mandel Self - patient is the insured Medical (General) History Medical History History ICD Code Anxiety Arthritis asthma Back,Hip,and Knee pain CAD (Cholesterol) covid-19 Depression Diabetic Diverticulosis Fibromyalgia Headaches/Migraines High blood pressure Stomach ulcer thyroid Chicken pox Surgical History Surgery Date(Month/Year) Hospitalization History Reason Date(Month/Year) [facility] [place] Stomach pain 06/18/24
--- OUTSIDE RECORDS SUMMARY | 2024-11-09 16:30 | XMS_ITS ---
Author Organization [facility] Address [address] [facility] [place] [address] Care Team Providers Care Maintenance Clerk Name Role Phone Silvino Andujar Primary Care Provider Unavailab Sandra Vanegas Unavailable [phone] Allergies Allergen (clinical drug ingredient) Drug/Non Drug [...] Oral for 30 Days Active Polymyxin B-Trimethoprim 00561-3.1 UNIT/ML PLACE 1 DROP INTO THE EYE(S) EVERY 4 HOURS FOR 7 DAYS WHILE AWAKE DO NOT EXCEED 6 DOSES IN 24 HOURS Ophthalmic for 12 Days Active [employer] Steffen System w/Device as directed 11/22/2023 Active [...] 024 Encounters Encounter Location Date Provider Diagnosis [facility] [place] [address] [place] [address] 06/22/2024 Sandra Garcia Gastrocnemius equinu s of [...] Provider Name:Sandra Garcia , 12/03/2024 02:45:00 PM, [address] [place] [address], [address], Progress Notes * Brittaney MENDOZAOB:1965 (59 yo F)Acc No.[id number]:06/22/2024 Progress Notes Patient:?Debra Mendoza Provider:?Sandra Garcia DPM :1965???Age:59 Y???Sex:Female D ate:06/22/2024 Address:[address] [place], [place] [address] Pcp:Silvino Andujar Subjective: * Chief Complaints: * [...] t Surgical History * Hospitalization/Major Diagno stic Procedure:?[facility] [place]- Stomach pain 06/18/24 * Family History:?Mother: [...] HCl 10 MG Tablet Oral Polymyxin B-Trimethoprim 20349-6.1 UNIT/ML Solution PLACE 1 DROP INTO THE EYE(S) EVERY 4 HOURS FOR 7 DAYS WHILE AWAKE DO NOT EXCEED 6 DOSES IN 24 HOURS Ophthalmic [employer] Steffen System w/Device Kit as directed Acetaminophen [...] EVERY DAY FOR 10 DAYS Oral Taking Humble BundleStClickOn Test Taking Gabapentin 400 MG Capsule Oral Taking Atorvastatin Calcium 40 MG Tablet TAKE 1 TABLET BY MOUTH EVERYDAY AT BEDTIME Oral Taking clonazePAM 1 MG Tablet Oral Taking Zolpidem Tartrate 10 MG Tablet TAKE 1 TABLET BY MOUTH EVERYDAY AT BEDTIME Oral Taking Citalopram Hydrobromide 20 MG Tablet Oral Taking Cetirizine HCl 10 MG Tablet Oral Taking Polymyxin B-Trimethoprim 35690-0.1 UNIT/ML Solution PLACE 1 DROP INTO THE EYE(S) EVERY 4 HOURS FOR 7 DAYS WHILE AWAKE DO NOT EXCEED 6 DOSES IN 24 HOURS Ophthalmic Taking [employer] System w/Device Kit as directed Taking Acetaminophen [...] Garcia DPM Date:?2023 Generated for Dalila ng/Faxing/eTransmitting on:?11/09/2024 04:30 PM EST History and Physical Notes * HPI [...]
== END 2024-11-09 14:25 | disposition home or self-care (01) ==
PROVIDERS: PCP Physician Assistant; Visit Provider Physician Assistant
DX: Z00.00 Encounter for general adult medical examination without abnormal findings (principal); E11.9 Type 2 diabetes mellitus without complications; Z79.4 Long term (current) use of insulin; F33.1 Major depressive disorder, recurrent, moderate; I10 Essential (primary) hypertension; E78.5 Hyperlipidemia, unspecified; K59.03 Drug induced constipation; M47.816 Spondylosis without myelopathy or radiculopathy, lumbar region; J01.10 Acute frontal sinusitis, unspecified; E66.9 Obesity, unspecified

== ENCOUNTER → 2024-11-09 13:32 | Outpatient (BNVA) | payer OTHER, SELFPAY | PROVIDERS: PCP Physician Assistant; Visit Provider Physician Assistant | DX: Z00.00 Encounter for general adult medical examination without abnormal findings (principal); E11.9 Type 2 diabetes mellitus without complications; I10 Essential (primary) hypertension; E78.5 Hyperlipidemia, unspecified; K59.03 Drug induced constipation; M47.816 Spondylosis without myelopathy or radiculopathy, lumbar region; J01.10 Acute frontal sinusitis, unspecified; F33.1 Major depressive disorder, recurrent, moderate; E66.9 Obesity, unspecified; Z68.32 Body mass index [BMI] 32.0-32.9, adult; Z71.3 Dietary counseling and surveillance; Z79.4 Long term (current) use of insulin | CPT/HCPCS: 83036; 96127; 99396 ==

== ENCOUNTER → 2024-12-08 16:24 | Outpatient (REF) | payer OTHER, SELFPAY | END | disposition home or self-care (01) | LOC: HO.CT | PROVIDERS: PCP Physician Assistant; Visit Provider Hospitalist | DX: R91.1 Solitary pulmonary nodule (principal) | CPT/HCPCS: 71250 ==

== ENCOUNTER → 2024-12-08 16:25 | Outpatient (BNV) | payer OTHER, SELFPAY | PROVIDERS: PCP Physician Assistant; Visit Provider Radiology Diagnostic Radiology | DX: R91.1 Solitary pulmonary nodule (principal) | CPT/HCPCS: 71250 ==

== ENCOUNTER 2025-02-10 10:37 | Outpatient (REF) | payer OTHER, SELFPAY ==
[2025-02-10 12:53] LABS: Iron 75 mcg/dL (30-160); Percent Iron Saturation 26 % (15-50); Total Iron Binding Capacity 287 mcg/dL (228-428); Unsaturated Iron Binding 212 ug/dL
--- OUTSIDE RECORDS SUMMARY | 2025-02-10 13:51 | XMS_ITS | Encounter Summary ---
Author Organization [facility] [facility] Address [address] [facility] [address] [place] [address] Care Team Providers Care Construction Sales Representative Name Role Phone Unavailable Primary Care Provider Unavailabl e Reason for Visit * Reason Comments Dental Pain Encounter Details Date Type Department Care Team (Late st Contact Info) Description 02/05/2025 2:00 PM EDT Office Visit [facility] ADULT D[facility]AL [address] [place] [address] Pattie Lilly DDS [address] [place], [place] [id number] Myalgia of mastication muscle (Primary Dx) Social [...] y.o. female. Time Out: Date: 02/05/2025 Location: [facility] Tooth: #17 Procedure: Exam Verified the above with patient, nurse practitioner physicians assistant, and provider. Confirmed via patient's chart, intraorally and by radiographs. Welfare Eligibility Interviewer: not applicable 59 y.o. y/o female presents [...] Bragg Provider: Dr. Pattie Lilly DDS Dental Pharmacy Technician Assistant: Luis Valenzuela Attending: Dr. Feliz * Vinicius Feliz DDS - 02/05/2025 2:00 PM EDT Reviewed and signed. documented in this encounter Plan of Treatment Upcoming Encounters Date Type Department Care Team (Late st Contact Info) Description 03/10/2025 10:45 AM EDT Office Visit [facility] ADULT [facility] [address] [place] [address] Kwesi Bragg, JODIE [address] [place] [address] documented as of this encounter Procedures Procedure Name Priority Date/Time Associated Diagnosis Comments NO CHARGE PROCEDURE Routine 02/05/2025 2:00 PM EDT documented in this encounter Visit Diagnoses Diagnosis Myalgia of mastication muscle- Primary documented in this encounter
--- OUTSIDE RECORDS SUMMARY | 2025-02-10 13:51 | XMS_ITS | Encounter Summary ---
Author Organization [facility] Address [address] [place] [address] Care Team Providers Care Hospital Laboratory Technician Name Role Phone Wilbert Moreau Primary Care Provider Unavailabl e Encounter Details Date Type Department Care Team Description 08/17/2016 Release of Information Medical Records [address] [place] [address] Abstract, Provider Social History Tobacco Use Types [...] on filedocumented in this encounter Care Teams Hospital Laboratory Technician Relationship Specialty Start Date End Date Wilbert Moreau PCP - General Family Practice 04/19/16 documented as of this encounter
--- OUTSIDE RECORDS SUMMARY | 2025-02-10 13:51 | XMS_ITS | Encounter Summary ---
Author Organization [facility] Address [address] [place] [address] Care Team Providers Care Tug Captain Name Role Phone Iqra Kurtz DO Primary Care Pro vider Unavailable Wilbert Moreau Primary Care Provider Unavailabl e Reason for Referral * Non [employer] (Routine) - Authorized/Booked Specialty Diagnoses / Procedures Referred By Osei gonzalez Referred To Contact Endocrinology Procedures REFERRAL TO ENDOCRINOLOGY Iqra Kurtz DO [address] [place] [address] Arvind Patel MD Referral ID Status Reason Start Date Expiration Date V isits Requested Visits Authorized [id number] Authorized/B ooked 03/29/2016 03/29/2017 1 1 Encounter Details Date Type Department Care Team Description 03/29/2016 Orders Only Adult Medicine [address] [address] Iqra Kurtz DO Social History Tobacco Use Types Packs/Day Years [...] on filedocumented in this encounter Care Teams Tug Captain Relationship Specialty Start Date End Date Iqra Kurtz DO PCP - General Internal Medicine 10/28/14 6/22/16 Wilbert Moreau PCP - General Family Practice 04/19/16 documented as of this encounter
--- OUTSIDE RECORDS SUMMARY | 2025-02-10 13:52 | XMS_ITS | Encounter Summary ---
Author Organization [employer] [facility] Address [address] [place] [address] Care Team Providers Care Law Writer Name Role Phone Iqra Kurtz DO Primary Care Pro vider Unavailable Wilbert Moreau Primary Care Provider Unavailabl e Encounter Details Date Type Department Care Team Description 05/19/2015 Hospital Medical Records [address] [place] [address] Olive Hernandes MD [address] [place] [address] Social History Tobacco Use Types Packs/Day Years [...] on filedocumented in this encounter Care Teams Law Writer Relationship Specialty Start Date End Date Iqra Kurtz DO PCP - General Internal Medicine 08/24/14 04/18/16 Wilbert Moreau PCP - General Family Practice 04/19/16 documented as of this encounter
--- OUTSIDE RECORDS SUMMARY | 2025-02-10 13:52 | XMS_ITS | Encounter Summary ---
Author Organization [employer] [facility] Address [address] [facility] 7 [place] [address] Care Team Providers Care Electric Installer Name Role Phone Unavailable Primary Care Provider Unavailabl e Encounter Details Date Type Department Care Team (Latest Contact Info) Description 01/13/2019 Abstract [facility] CONVERSIONS Dental, Provider, DDS Social History [...] Description 03/10/2025 10:45 AM EDT Office Visit [facility] ADULT DENTAL [address] [place] [address] Kwesi Bragg, JODIE [address] [place] [address] documented as of this encounter Visit Diagnoses Not on filedocumented in this encounter
--- OUTSIDE RECORDS SUMMARY | 2025-02-10 13:52 | XMS_ITS | Clinical Summary ---
Author Organization [employer] Address [address] [facility] 7t [place] [address] Care Team Providers Care Sap Pp Consultant Name Role Phone Unavailable Primary Care Provider [...] 10/25/2014 Nephrolithiasis 10/25/2014 Overview (12/17/2024): Followed by [facility] Urology Hyperlipidemia 08/26/2014 Major depression 08/26/2014 Overview (12/17/2024): Follows at [facility] Panic attacks 08/26/2014 Encounters Date Type Department Care Team Description 02/05/2025 2:00 PM EDT Office Visit [facility] ADULT DENTAL [address] [place] [address] Pattie Lilly, MARYURI Myalgia of mastication muscle (Primary Dx) 01/27/2025 2:30 PM EDT Office Visit [facility] ADULT DENTAL [address] [place] [address] Kwesi Bragg DMD 01/22/2025 9:30 AM EDT Office Visit [facility] ADULT DENTAL [address] [place] [address] Rebecca Agarwal, DDS History of third molar tooth extraction, unspecified edentulism class (Primary Dx) 01/19/2025 11:30 AM EDT Office Visit [facility] ADULT DENTAL [address] [place] [address] Pattie Lilly, DDS 01/13/2025 8:00 AM EDT Office Visit [facility] ADULT DENTAL [address] [place] [address] LillyWilsonia, DDS History of third molar tooth extraction, unspecified edentulism class (Primary Dx) 12/17/2024 2:30 PM EST Office Visit [facility] ADULT DENTAL [address] [place] [address] Pattie Lilly, DDS from Last 3 Months [...] 10:45 AM EDT Office Visit [facility] ADULT DENTAL [address] [place] [address] Kwesi Bragg, DMD [address] [place] [address] Health Maintenance Due Date Last Done Comments [...] Recently Relevant to Health Maintenance Insurance DENTAL [facility]
--- OUTSIDE RECORDS SUMMARY | 2025-02-10 13:52 | XMS_ITS | Encounter Summary ---
Author Organization [employer] [facility] Address [address] [place] [address] Care Team Providers Care Crystalizer Tender Name Role Phone Iqra Kurtz DO Primary Care Pro vider Unavailable Wilbert Moreau Primary Care Provider Unavailabl e Encounter Details Date Type Department Care Team Description 11/15/2015 Hospital Medical Records [address] [place] [address] Cheyenne Lowry MD [address] [place] [address] [address] [place] [address] Social History Tobacco Use Types Packs/Day Years [...] on filedocumented in this encounter Care Teams Crystalizer Tender Relationship Specialty Start Date End Date Iqra Kurtz DO PCP - General Internal Medicine 08/24/14 04/18/16 Wilbert Moreau PCP - General Family Practice 04/19/16 documented as of this encounter
--- OUTSIDE RECORDS SUMMARY | 2025-02-10 13:52 | XMS_ITS | Encounter Summary ---
Author Organization [facility] Address [address] [place] [address] Care Team Providers Care Thread Dresser Name Role Phone Wilbert Moreau Primary Care Provider Unavailabl e Iqra Kurtz DO Primary Care Pro vider Unavailable Wilbert Moreau Primary Care Provider Unavailabl e Encounter Details Date Type Department Care Team Description 08/18/2013 Director Of Athletics Report Medical Records [address] [place] [address] Richie Cardona Social History Tobacco Use Types Packs/Day Years Used Date Smoking Tobacco: Never Assessed Sex Assigned at Date Recorded Not on file documented as of this encounter Plan of Treatment Not on file documented as of this encounter Visit Diagnoses Not on filedocumented in this encounter Care Teams Thread Dresser Relationship Specialty Start Date End Date Wilbert Moreau PCP - General Family Practice 03/11/12 08/23/14 Iqra Kurtz DO PCP - General Internal Medicine 08/24/14 04/18/16 Wilbert Moreau PCP - General Family Practice 04/19/16 documented as of this encounter
--- OUTSIDE RECORDS SUMMARY | 2025-02-10 13:52 | XMS_ITS | Encounter Summary ---
Author Organization [facility] Address [address] [place] [address] Care Team Providers Care Sap Security Architect Name Role Phone Iqra Kurtz DO Primary Care Pro vider Wilbert Kent Primary Care Provider Unavailabl e Reason for Visit * Reason Onset Date Comments Back Pain 05/02/2015 injection 05/02/2015 Encounter Details Date Type Department Care Team Description 05/02/2015 Telephone Physiatry - [address] [address] Romeo Zhagn DO Back Pain; injection Social History Tobacco [...] on filedocumented in this encounter Care Teams Sap Security Architect Relationship Specialty Start Date End Date Iqra Kurtz DO PCP - General Internal Medicine 08/24/14 04/18/16 Wilbert Moreau PCP - General Family Practice 04/19/16 documented as of this encounter
--- OUTSIDE RECORDS SUMMARY | 2025-02-10 13:52 | XMS_ITS | Encounter Summary ---
Author Organization [facility] Address [address] [place] [address] Care Team Providers Care Social Services Coordinator Name Role Phone Iqra Kurtz DO Primary Care Pro vider Wilbert Kent Primary Care Provider Unavailabl e Encounter Details Date Type Department Care Team Description 03/06/2016 Orders Only Adult Medicine [address] [address] Iqra Kurtz DO Thyroid nodule (Primary Dx) Social History Tobacco Use Types [...] on file documented as of this encounter Results * SONO GUIDE NEEDLE BIOPSY (03/27/2016 9:25 AM EDT) 03/27/2016 1:23 PM EDT Addenda Addendum by Dai Garcia MD on 03/29/2016 3:50 PM EDT Addendum: Cytopathology: THYROID, RIGHT, FINE NEEDLE ASPIRATION: CYTOLOGY AND CELL BLOCK: -HURTHLE CELLS AND COLLOID PRESENT; CANNOT EXCLUDE A HURTHLE CELL NEOPLASM. NOTE: ALTHOUGH A LYMPHOCYTIC INFILTRATE IS NOT SEEN IN THE ASPIRATION MATERIAL, SEROLOGIC TPO TESTING IS SUGGESTED TO EVALUATE FOR THE POTENTIAL OF SHERRY'S THYROIDITIS. Message was left on the patient's voicemail at 345 p.m. on 03/29/2016 18 stating that the pathologist desired additional blood tests. Followup with the patient's provider was suggested. Narrative JOHAN JERONIMO OTHER EXTERNAL - 03/27/2016 1:24 PM EDT Ultrasound-guided fine-needle aspiration right thyroid nodule History: Dominant solid right thyroid nodule. Informed consent was obtained from the patient. Skin overlying the right side of the neck was prepped with Betadine. Under ultrasound guidance, 3 passes with 3 separate 27-gauge needles were made into the dominant nodule in the midpole of the right lobe of the thyroid. ThinPrep slides were prepared. All 3 needles were rinsed in preservative solution. The patient tolerated the procedure well without any immediate complications. The patient will be notified when the cytopathology results become available. Procedure Note Dai Garcia MD - 03/27/2016 Ultrasound-guided fine-needle aspiration right thyroid nodule History: Dominant solid right thyroid nodule. Informed consent was obtained from the patient. Skin overlying the right side of the neck was prepped with Betadine. Under ultrasound guidance, 3 passes with 3 separate 27-gauge needles weremade into the dominant nodule in the midpole of the right lobe of the thyroid. ThinPrepslides were prepared. All 3 needles were rinsed in preservative solution. The patient tolerated the procedure well without any immediatecomplications. The patient will be notified when the cytopathology results becomeavailable. Iqra Walker DO ULTRASOUN D JOHAN JERONIMO FREEMAN EXTERNAL documented in this encounter Visit Diagnoses Diagnosis Thyroid nodule- Primary Nontoxic uninodular goiter Thyroid nodule Nontoxic uninodular goiter documented in this encounter Care Teams Social Services Coordinator Relationship Specialty Start Date End Date Iqra Kurtz DO PCP - General Internal Medicine 08/24/14 04/18/16 Wilbert Moreau PCP - General Family Practice 04/19/16 documented as of this encounter
--- OUTSIDE RECORDS SUMMARY | 2025-02-10 13:52 | XMS_ITS | Data Portability ---
Author Organization [employer] Address [address] [place] [id number] Care Team Providers Care Music Supervisor Name Role Phone HIM [employer] OTHER ANDRAE LEARY Primary Care Provider [phone] Assessment No assessment recorded. Plan of Treatment Reminders Order Date Submit Date Provider Last Modified By Organization Details Last Modified Time Details Appointments None recorded. Lab None recorded. Referral None recorded. Procedures None recorded. Surgeries None recorded. Imaging None recorded. Medication Orders lactated Ringers intravenous solution 2024 025 [id number], [address] [place], [address], 18:02:05 prednisone 20 mg tablet 2024 025 [id number], [address] [place], [address], 18:38:16 prednisone 20 mg tablet 2024 025 [facility], [address] [place] [address], [phone], 18:42:21 Patient TargetsNo targets recorded. Patient InstructionsNo instructions recorded. Reason for Referral None Reported. Medical Equipment None Reported. Allergies No known drug allergies Medications Name Sig Start Date Stop Date Status Note LastModified by Organization Details LastModified Time amoxicillin 500 mg capsule TAKE ONE CAPSULE EVERY 8 HOURS FOR 7 DAYS active Not Available Not Available No t Available pioglitazone 15 mg tablet active Not Available Not Available Not Available atorvastatin 40 mg tablet active Not Available Not Available Not Available prednisone 10 mg tablet active Not Available Not Available Not Available gabapentin 600 mg tablet active Not Available Not Available Not Available tizanidine 2 mg tablet PLEASE SEE ATTACHED FOR DETAILED DIRECTIONS active Not Available Not Available N ot Available albuterol sulfate 2.5 mg/3 mL (0.083 %) solution for nebulization active Not Available Not Available Not Available loperamide 2 mg capsule PLEASE SEE ATTACHED FOR DETAILED DIRECTIONS active Not Available Not Available N ot Available cetirizine 10 mg tablet TAKE 1 TABLET BY MOUTH EVERY DAY NEEDED ALLERGY SYMPTOMS FOR 90 DAYS active Not Available Not Available Not Available azithromycin 250 mg tablet active Not Available Not Available Not Available ibuprofen 800 mg tablet TAKE 1 TABLET ORALLY EVERY 8 HOURS NEEDED FOR PAIN FOR 15 DAYS active Not Available Not Available No t Available fluconazole 150 mg tablet TAKE 1 TABLET BY MOUTH DAILY active Not Available Not Available Not Available benzonatate 200 mg capsule TAKE 1 CAPSULE BY MOUTH THREE TIMES A DAY FOR 7 DAYS active Not Available Not Available N ot Available sucralfate 100 mg/mL oral suspension TAKE 10ML BY MOUTH TWICE A DAY 30 DAYS active Not Available Not Available No t Available sucralfate 1 gram tablet TAKE 1 TABLET BY MOUTH FOUR TIMES A DAY BEFORE MEALS AND BED active Not Available Not Available No t Available ondansetron HCl 4 mg tablet TAKE 1 TABLET BY MOUTH EVERY 8 HOURS NEEDED FOR NAUSEA AND VOMITING active Not Available Not Available No t Available famotidine 40 mg tablet TAKE 1 TABLET BY MOUTH BEDTIME FOR 90 DAYS active Not Available Not Available No t Available prednisone 20 mg tablet Take 2 tablets every day by oral route for 4 days. active Not Available Not Available No t Available clonazepam 1 mg tablet TAKE 1 TABLET BY MOUTH EVERY DAY IN THE MORNING active Not Available Not Available No t Available tramadol 50 mg tablet TAKE 1 TABLET BY MOUTH TWICE A DAY NEEDED FOR PAIN FOR 7 DAYS active Not Available Not Available No t Available acetaminophe n ER 650 mg tablet,exten ded release TAKE 1 TABLET BY MOUTH EVERY 12 HOURS FOR 30 DAYS active Not Available Not Available Not Available pantoprazole 20 mg tablet,delay ed release TAKE 1 TABLET BY MOUTH TWICE A DAY FOR 14 DAYS active Not Available Not Available No t Available citalopram 20 mg tablet TAKE 1 TABLET BY MOUTH EVERY DAY IN THE MORNING active Not Available Not Available No t Available pantoprazole 40 mg tablet,delay ed release TAKE 1 TABLET BY MOUTH TWICE A DAY FOR 30 DAYS active Not Available Not Available No t Available metformin 1,000 mg tablet TAKE 1 TABLET BY MOUTH EVERY DAY active Not Available Not Available No t Available prednisone 50 mg tablet TAKE 1 TABLET BY MOUTH DAILY FOR 5 DAYS active Not Available Not Available N ot Available clonazepam 2 mg tablet TAKE 1 TABLET BY MOUTH AT BEDTIME FOR ANXIETY active Not Available Not Available No t Available pyridoxine (vitamin B6) 50 mg tablet TAKE 2 TABLETS BY MOUTH EVERY DAY active Not Available Not Available No t Available telmisartan 20 mg tablet TAKE 1 TABLET BY MOUTH EVERY DAY active Not Available Not Available No t Available zolpidem 10 mg tablet TAKE 1 TABLET BY MOUTH EVERYDAY AT BEDTIME active Not Available Not Available No t Available albuterol sulfate HFA 90 mcg/actuatio n aerosol inhaler active Not Available Not Available Not Available doxycycline hyclate 100 mg tablet TAKE 1 TABLET BY MOUTH 2 TIMES PER DAY FOR 10 DAYS LIMITS SUN EXPOSURE WHILE ON THIS ANTIBIOTIC active Not Available Not Available N ot Available amoxicillin 875 mg-potassium clavulanate 125 mg tablet TAKE 1 TABLET BY MOUTH TWICE A DAY FOR 10 DAYS active Not Available Not Available No t Available oxycodone 5 mg tablet TAKE ONE TABLET EVERY 6 HOURS NEEDED FOR SEVERE PAIN active Not Available Not Available Not Available fluticasone propionate 115 mcg-salmeter ol 21 mcg/actuatio n HFA inhaler active Not Available Not Available Not Available Advair HFA 230 mcg-21 mcg/actuatio n aerosol inhaler INHALE 2 PUFFS INTO THE LUNGS 2 TIMES A DAY ADMINISTER WITH SPACER active Not Available Not Available Not Available fenofibrate nanocrystall ized 48 mg tablet TAKE 1 TABLET BY MOUTH EVERY DAY active Not Available Not Available No t Available cholecalcife rol (vitamin D3) 25 mcg (1,000 unit) tablet TAKE 1 TABLET BY MOUTH EVERY DAY active Not Available Not Available No t Available cholecalcife rol (vitamin D3) 50 mcg (2,000 unit) tablet TAKE 1 CAPSULE BY MOUTH EVERY DAY FOR 90 DAYS active Not Available Not Available No t Available FreeStyle Precision Steffen Strips active Not Available Not Available N ot Available Ozempic 1 mg/dose (4 mg/3 mL) subcutaneous pen injector INJECT 1 MG (0.75 ML) SUBCUTANEOU SLY EVERY WEEK FOR 4 WEEKS active Not Available Not Available No t Available Mounjaro 5 mg/0.5 mL subcutaneous pen injector active Not Available Not Available Not Available Ozempic 0.25 mg or 0.5 mg (2 mg/3 mL) subcutaneous pen injector INJECT 0.25 MG SUBCUTANEOU SLY EVERY WEEK FOR 4 WEEKS active Not Available Not Available No t Available Vitals Date Recorded Heart rate Body height Body weight Body temperature Respiratory rate Oxygen saturation Oxygen saturation in Arterial blood by Pulse oximetry Body temperature Systolic blood pressure Diastolic blood pressure Provider Name and Address Organization Details Last Updated DateTime 5 120 /min 167.64 cm 47625.2 16 g 102.3 [degF] 18 /min 99 % 99 % 99.9 [degF] 115 mm[Hg] 73 mm[Hg] Not Available [employer] - production 5 17:56:50 Social History None recorded. Functional Status None recorded. Mental Status None recorded. Family History Nothing Reported. Medical History No medical history recorded. Gynecological HistoryNo gynecological history recorded. Obstetrics History GPAL:G 0 P 0 0 0 0 Past Encounters Encounter ID Performer Location Encounter Start Date Encounter Closed Date Diagnosis/Indication Diagnosis SNOMED-CT Code Diagnosis ICD10 Code Diagnosis Note [id number] LINDA GEORGE MD [facility] [address] [place] [phone] 01/01/2025 17:44:31 01/01/2025 21:09:04 Influenza-like illness 08060206 B34.9 Evaluation in the field was performed by my sausage smoker colleague, as noted above, I provided real-time direction and supervisio n for this visit. The evaluation revealed 59-year-ol d female with a history of asthma presenting with headache , cough, and expiratory wheezing. She has been using her inhalers and nebulizers as needed. The patient had influenza A a few weeks ago, but now her granddaugh roderick has it, and she is concerned she may have been reinfected . She reports body aches and chills.She denies shortness of breath but notes that her chest feels tight, likely due to cough and congestion . She is producing clear-colo red phlegm. She took 650 mg of Tylenol approximat abdifatah 2 hours prior to the visit. Vital Signs:BP: 115/73 mmHg, HR: 120 bpm, RR: 18 breaths per minute, SpO2: 99% on room air. Temperatur e: 102.3? ? ?FPhysical Exam: AAO, no acute distress , speaking in full sentences. Lungs: Clear to auscultati on bilaterall y initially, but with mild expiratory wheezing noted by the end of the visit.Extr emities: No lower extremity edema.COVI D and Flu: NegativeAl lergies: Reviewed Impression :Influenza like illness Plan:-LR 1 L was administer ed. Repeat temp 99.9 F-Advised to take Tylenol 975 mg every 8 hrs. May use Ibuprofen 600 mg every 8 hrs in between if ongoing fever.-Enc ouraged to stay hydrated and drink plenty of fluids, such as water, herbal teas, or clear broths.-Pr ednisone 40 mg was started for 5 day course. First dose was given by the sausage smoker. -Pt advised to avoid irritants like smoke, strong odors, and allergens that could worsen symptoms.- Recommende d the use of over-the-c ounter ibuprofen for fever or body aches and decongesta nts or antihistam sabas for congestion if needed-Pt advised to go to for chest x-ray if no improvemen t or worsening fever in 48-72 hrs,-Red flags were discussed with the patient including signs of worsening respirator y distress, ongoing fever despite Tylenol/ Ibuprofen, CP, nausea, vomiting, diarrhea, inability to tolerate PO Primary care, consider__ _ Dispositio n:We discussed the diagnostic uncertaint y of home visits and the risk associated with this. In this case, the patient and I felt this to be an acceptable and reasonable amount of risk given the benefit of avoiding an ED visit. We discussed the need to seek care urgently/e mergently in the setting of any new or worsening serious symptoms, particular ly persistent or high fever that does not improve with antipyreti cs, shortness of breath, difficulty breathing, or chest pain, worsening or prolonged symptoms lasting more than 10 days, severe headache, ear pain, or facial swelling suggestive of sinus or ear infection, new or unusual symptoms, such as confusion, rash, or weakness. Health Concerns Section Related Observation LastModified by Organization Detai ls LastModified Time None Recorded Concern Status LastModified by Organization Details LastModified Time None Recorded Advance Directives Directive None Recorded Payers Encounter Date Sequence Insurance Name Policy Number Policy Anna Covered Member ID Anna Member ID Guarantor Name 01/01/2025 1 [facility] - DOS ON OR AFTER 2023 - DUAL ELIGIBLE - ALF OPTIONS AND ONE CARE (MEDICARE REPLACEMENT/ADV ANTAGE - HMO) Debra Mandel [id number] Debra Mandel Notes Date Note Type Note Provider Name and Address Organization Details Recorded Time 01/01/2025 text/html [facility] Nurse Triage Notes (Radha Mclaughlin): Reason For Request: Pt is unsure if she has the flu, noting she had it weeks ago>noting her granddaughter has it currently>notes trying to taking breathing treatments + albuterol>chill>dry cough>wheezing>congest ion Patient Reports: Cough, fever greater than 2 days ; History of asthma, increased use of inhaler; Sputum increase ; Cough; Pain with inspirationDenies: Increased work of breathing/labored ? with or without fever Unable to speak in full sentences without distress Discoloration of skin -cyanosis Needs to sleep sitting up, can? t catch breath Shortness of breath in setting of confusion COPD Shortness of breath with exertion Chief Complaints: Common ColdPMH: Asthma, Hypertension, Diabetes Mellitus Type 2, HyperlipidemiaPMH Reviewed at 01/01/2025:55Allergies Reviewed at 01/01/2025:55Comments: Tassel Making Machine Operator verified the name//address and phone number.Pt has been having symptoms since yesterday , SANDOVAL and exp wheeze. She has been using her inhalers / nebs. She had flu A a few weeks ago but now her grandaughter has it and she feels she may have it again. She has body aches and chills. She feels her breathing fine but her chest is feeling like it is getting tight due to the cough and congestion. She is getting phlegm up but not dark in color. She also has chills but unsure about a feverShe has allergies but unsure the nameEducation provided on the response time and the Patient was advised to monitor reported s/s and seek emergency treatment if needed Spread Cutter Organization Information for Juan White Cely Luevano Legal Name: [employer] Address: [address] [place] [address], Automotive Consultant: Jose C Hylton MD CLIA No.: [id number] Spread Cutter POC Test Results from Juan White ANASTASIA Rapid influenza antigen (17:57:03) Flu: - Rapid COVID antigen (17:57:04) COVID: - ...................... ...................... ...................... ...................... ...................... ...................... ......... Spread Cutter Note From Juan White: [facility] visit for female pt presenting with body aches and chills. Pt reports symptoms have been going on for the last 2 days after she was in contact with her grand daughter who was quite sick. V/S taken with tachycardia noted. Pt febrile at 102.3 F. Pt swabbed for flu and covid and found to be negative. Lungs clear bilaterally but pt appears fatigued. Pt reports she took tylenol 2 hours ago and did nebulizer treatment [facility] Consulted with [facility] Dr. George who ordered 1 liter IV normal saline given on scene. [facility] also ordered 40 mg of prednisone. Pt given tablets but she said she was going to wait until she ate to taken them. Reviewed red flags for ED. Reviewed dosage guidelines for tylenol. Pt education provided. [facility] Medication Orders: lactated Ringers intravenous solution: Administered prednisone 20 mg tablet: Administered ...................... ...................... ...................... ...................... ...................... ...................... ......... [facility] Consulted: Linda George ...................... ...................... ...................... ...................... ...................... ...................... ......... Disposition: Fulfilled LINDA GEORGE MD [address] [place] [address], [place], [phone], [employer], [facility] 01/01/2025 20:53:49 OBGyn Episode No OBEpisode recorded.
--- OUTSIDE RECORDS SUMMARY | 2025-02-10 13:52 | XMS_ITS | Clinical Summary ---
Author Organization [facility] it Address [address] [place] [address] Care Team Providers Care Inspector Material Disposition Name Role Phone Wilbert Moreau DO Primary Care Provider [phone] Surgical History Surgery Date Site/Laterality Comments TONSILLECTOMY PROCEDURE: HISTORICAL TONSILLECTOMY HYSTERECTOMY PROCEDURE: HISTORICAL HYSTERECTOMY OOPHORECTOMY Left PROCEDURE: HISTORICAL OOPHORECTOMY BREAST REDUCTION PROCEDURE: CT BREAST REDUCTION KIDNEY STONE SURGERY PROCEDURE: CT NEPHROLITHOTOMY REMOVAL CALCULUS OTHER SURGICAL HISTORY PROCEDURE: CT HEMORRHOIDECTOMY INT & XTRNL 2/> COLUMN/DIDIER SECTION PROCEDURE: HISTORICAL DELIVERY LAPAROSCOPIC GASTRIC BANDING PROCEDURE: LAP ADJUSTABLE GASTRIC BAND; COMMENT: and then removed on 11/25/15 BELT ABDOMINOPLASTY PROCEDURE: HISTORICAL TUMMY TUCK OTHER SURGICAL HISTORY 01/12/14 PROCEDURE: MAMMOGRAM OTHER SURGICAL HISTORY PROCEDURE: CT HEMORRHOIDECTOMY INTERNAL RUBBER BAND LIGATIONS Medical History Medical History Date Comments Nephrolithiasis 10/25/2014 DX:Nephrolithias is; COMMENT: Followed by [facility] Urolog Back pain, chronic 10/25/2014 DX:Back pain, [...] Documents on File Type Date Recorded Patient Manager Park Expl anation Health Care Decision (hx) 12/01/2018 AD COREAS DIRECTIVE Health Care Decision (hx) 12/01/2018 AD COREAS DIRECTIVE Health Care Decision (hx) 12/01/2018 AD COREAS DIRECTIVE Care Teams Inspector Material Disposition Relationship Specialty Start Date End Date Wilbert Moreau DO [address] [address] PCP - General 04/19/16
== END 2025-02-10 10:38 | disposition home or self-care (01) ==
LOC: HO.LAB 10:37
PROVIDERS: PCP Physician Assistant; Visit Provider Physician Assistant
DX: E11.9 Type 2 diabetes mellitus without complications (principal); I10 Essential (primary) hypertension; E78.5 Hyperlipidemia, unspecified; M47.816 Spondylosis without myelopathy or radiculopathy, lumbar region; F33.1 Major depressive disorder, recurrent, moderate; E66.9 Obesity, unspecified; Z68.30 Body mass index [BMI] 30.0-30.9, adult; K08.89 Other specified disorders of teeth and supporting structures; J45.40 Moderate persistent asthma, uncomplicated; Z79.4 Long term (current) use of insulin
CPT/HCPCS: 36415; 83036; 83540; 96160; 99212

== ENCOUNTER 2025-02-10 10:37 | Outpatient (AMB) | payer OTHER, SELFPAY ==
--- NOTE | 2025-02-10 10:40 | A.OFFPC_ITS ---
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 Accompanied by: Self / Same As Patient Allergies seafood Allergy (Unknown, Verified 02/10/25 10:55) Unknown dulaglutide [[facility] Adverse Reaction (Intermediate, Verified 02/10/25 10:55) Diarrhea metformin Adverse Reaction (Intermediate, Verified 02/10/25 10:55) GAstric upset lisinopril Adverse Reaction (Unknown, Verified 02/10/25 10:55) cough Medication List - Last Reconciled 02/10/25 by Silvino Andujar PA-C acetaminophen ER (Tylenol Arthritis Pain) 650 mg PO Q12H 30 days albuterol sulfate 90 mcg/actuation 2 puffs inhalation QID 30 days albuterol sulfate 2.5 mg (3 mL) inhalation Q6H PRN 30 days atorvastatin 40 mg PO BEDTIME azithromycin For 250 mg dose pack: take 500 mg today (day 1), then 250 mg for 4 days (days 2-5) PO blood sugar diagnostic (FreeStyle Precision Steffen Strips) As directed once daily blood-glucose meter (FreeStyle Precision Steffen Meter) As directed cetirizine 10 mg PO DAILY PRN 90 days cholecalciferol (vitamin D3) 25 mcg PO DAILY 90 days citalopram 20 mg PO DAILY@0900 clonazepam 2 mg PO BEDTIME clonazepam 1 mg PO DAILY@0900 fenofibrate nanocrystallized 48 mg PO DAILY fluticasone propion-salmeterol 115-21 mcg/actuation (Advair HFA) 2 puffs inhalation Q12H 30 days gabapentin 600 mg PO BID 30 days pantoprazole 40 mg PO BID 90 days pioglitazone 15 mg PO DAILY 30 days polyethylene glycol 3350 (Miralax) 17 grams PO DAILY 30 days prednisone 10 mg PO DIRECTED 9 days semaglutide (Ozempic) 1 mg (0.75 mL) subcut QWEEK 4 weeks sucralfate 1 g PO QID telmisartan (Micardis) 20 mg PO DAILY@0900 tirzepatide (Mounjaro) 5 mg (0.5 mL) subcut QWEEK 4 weeks tirzepatide (Mounjaro) 7.5 mg (0.5 mL) subcut QWEEK 4 weeks tramadol 50 mg PO BID 7 days zolpidem 10 mg PO BEDTIME Tobacco use date assessed: 11/09/24 Dental Screening Dental Screen Date: 11/09/24 HPI f/u DMII HPI Details Patient is a 59-year-old female here today for routine annual physical.? Patient has a past Conditions history significant for type 2 diabetes, hypertension, obesity, recurrent C diff colitis, moderate persistent asthma, pulmonary nodule, major depressive disorder and generalized anxiety disorder. Concerns--> The patient continues to experience post-dental procedure complications, notably persistent muscle swelling and pain, which have not been successfully managed by prescribed muscle relaxants. These symptoms are significantly impacting her ability to eat and perform normal activities, with minimal response to suppositional muscle relaxant medications. Also she does report feeling somewhat weak since having influenza. She did have her insurance come give her IV fluid hydrations. She is planning on getting blood work done today .. Type 2 diabetes:? Patient continues on Mounjaro 7.5 mg weekly. Unfortunately has not lost much weight. Likely attributed to her psychiatric medication. Today's A1c is 5.7 PLAN: Will hold off on Actos .. Hyperlipidemia: Most recent lipid panel done in June of 2024 showing very elevated total cholesterol and LDL. At that time she was not taking statin therapy. She promises to start being more adherent to atorvastatin 40 mg and will recheck her lipid panel. She does understand her goal LDL is to be below 100 to reduce her cardiovascular risks . Asthma: Patient's asthma is under fair control. worse during her Illness. She has had multiple exacerbations. Has been recently started on Advair HFA which she feels is helpful. .. Class 1 obesity: Since starting alternative GLP 1 her weight has gone down. Today's BMI at 30 ? . .. Major depressive disorder, generalized anxiety disorder:? Continues to follow a mental therapist and a psychiatrist whom manage her mental health medications.? She feels fairly stable at this time with her mental health medications Laboratory Tests 03/05/24 07/06/24 11/09/24 08:47 08:57 13:36 Fasting Glucose 144 H Hgb A1c (Clinic) 6.7 H Hemoglobin A1c % 7.0 H Cholesterol 268 H 281 H LDL Cholesterol, C alc 149 H 162 H PFSH Medical History Calcified granuloma of lung History of panic attacks Asthma Anal fissure Anal pain Pulmonary nodules Hx of renal calculi Flu-like symptoms Spondylosis of lumbar spine Fibromyalgia Dyslipidemia Obesity, Class I, BMI 30-34.9 Nephrolithiasis Recurrent Clostridioides difficile infection Hx of thyroid nodule Back pain Arthritis Depression Anxiety Type 2 diabetes mellitus HLD (hyperlipidemia) GERD (gastroesophageal reflux disease) HTN (hypertension) Surgical History History of esophagogastroduodenoscopy (EGD) Hx of cosmetic surgery Hx of tonsillectomy Hx of section Hx of lithotripsy Hx of endoscopy Hx of colonoscopy (~11/2016) S/P anal fissurectomy H/O hemorrhoidectomy Hx laparoscopic cholecystectomy S/P left oophorectomy H/O partial thyroidectomy (~2016) History of removal of laparoscopic gastric banding device (~2015) History of abdominoplasty History of colonoscopy History of laparoscopic adjustable gastric banding (~2010) History of bilateral breast reduction surgery (~2008) History of hysterectomy Family History Father Diabetes Hypertension Depression Mother Lung cancer Diabetes Mental health disorder Brother HIV (human immunodeficiency virus infection) Depression Diabetes Sister Hypertension Diabetes Mental health disorder Daughter Mental health disorder Son Mental health disorder Social History Household Members: Children Housing: House Do you presently have visiting nurse or other home services: Yes Alcohol intake: current Alcohol intake frequency: holidays/special occasions only Patient Tobacco Use Status: Former Tobacco user e-Cigarette/Vaping Use: Never Used Second Hand Smoke Exposure: No Substance Use Type: Marijuana Advance Directives Date on File: 02/06/24 service: No Current occupational status: disabled Cognitive needs: No Hearing needs: No Vision needs: Yes Questionnaire Thrive Questionnaire Date Thrive assessed: 11/09/24 I am a: Patient What is your living situation today?: I have a steady place to live Within the past 12 months, did the food you bought not last and you didn't have the money to get more?: Never true Within the past 12 months, did you worry whether your food would run out before you got money to buy more?: Never true Do you have trouble paying for medicines?: No Do you have trouble getting transportation to medical appointments?: No Do you have trouble paying your heating and electricity bill?: No Do you have trouble taking care of your child, family member or friend?: Yes Do you have trouble with day-to-day activities such as bathing, preparing meals, shopping, managing finances, etc.?: Yes Are you currently unemployed and looking for a job?: No Are you interested in more education?: No Please select the resources that you would like help with: None Currently or been in a relationship where the following occur: No concerns reported THRIVE Score: 0 EMIL-7 AMB Questionnaire EMIL-7 Date EMIL - 7 assessed: 11/09/24 Source: Developed by Drs. Vazquez Holden, Jaye Ryan, Carl Gaona and colleagues, with an educational kalpana from [employer]. ACT Questionnaire In the past 4 weeks, how much of the time did your asthma keep you from getting as much done at work, school or at home?: A little of the time During the past 4 weeks, how often have you had shortness of breath?: 1-2 times a week During the past 4 weeks, how often did your asthma symptoms wake you up at night or earlier than usual in the morning?: Once or twice per week During the past 4 weeks, how often have you had to use your rescue inhaler or nebulizer medication?: Not at all How would you rate your asthma control during the past 4 weeks?: Completely con trolled ACT Interpretation: Positive ACT Branch: Follow up visit scheduled Score: 22 Review of Systems Const Denies headache(s) Eyes Denies loss of vision ENT Denies vertigo, Denies dizziness, Denies headache(s) and Denies sore throat Card Denies chest pain, Denies leg edema and Denies lightheadedness Resp Denies cough, Denies hemoptysis and Denies wheezing GI Denies abdominal pain, Denies melena, Denies constipation, Denies diarrhea and Denies vomiting Denies urinary frequency, Denies dysuria and Denies urinary urgency Musc Denies arthralgias, Denies joint swelling, Denies numbness and Denies tingling Neuro Denies Abnormal speech present, Denies behavioral changes, Denies vertigo, Denies dizziness, Denies headache(s), Denies loss of vision, Denies memory loss, Denies numbness and Denies tingling Psych Denies anxiety, Denies behavioral changes, Denies depression, Denies memory loss and Denies panic attacks Swapnil/Lymph Denies easy bleeding and Denies easy bruising Aller/Immun Denies wheezing Physical exam (Primary Care) Vital Signs: Last Vital Signs Temp 97.1 F 02/10/25 10:50 Pulse 70 02/10/25 10:50 BP 118/70 02/10/25 10:50 Pulse Ox 98 02/10/25 10:50 Oxygen Delivery Method Room Air 02/10/25 10:50 BMI result Body Mass Index 30.9 BMI Assessment/Plan discussion: High BMI High, discussed plan: lifestyle, weight reduction, dietary and physical activity Tobacco/Smoking Status: Tobacco use Status Tobacco use date assessed 11/09/24 02/10/25 10:40 Patient Tobacco Use Status Former Tobacco user 02/10/25 10:40 e-Cigarette/Vaping Use Never Used 02/10/25 10:40 Thrive Assessment: Date of Thrive Assessment Date Thrive assessed 11/09/24 02/10/25 10:40 Currently or been in a relationship where the following occur: No concerns reported Const General: healthy appearing, no acute distress, alert and awake Nutritional Appearance: well nourished Orientation/consciousness: oriented to person, oriented to place and oriented to time HENMI Ears: TM's normal bilaterally General nose exam: Normal nasal mucous membranes and turbinates present Eyes Conjunctivae: conjunctivae normal Sclerae: sclerae normal Pupils: Equal, round and reactive pupils present Neck Neck: Yes no lymphadenopathy and Yes no JVD Thyroid: Thyroid normal Carotids: no bruits Resp Effort & Inspection: normal respiratory effort and not tachypneic Auscultation: no crackles, no rales, no rhonchi and no wheezes Cardio Rate: regular rate Rhythm: regular rhythm Heart sounds: no murmurs and normal S1 and S2 GI Palpation (GI): Soft to palpation, nontender, no hepatomegaly and no splenomegaly Auscultation: normal bowel sounds Skin General skin exam: no rashes or lesions noted and dry skin Neuro General: oriented to person, oriented to place and oriented to time Cranial nerves: Yes Equal, round and reactive pupils present Speech: No Abnormal speech present Gait exam (Neuro): Normal gait present Motor exam (neuro): no tremor noted Extrem Right upper extremity: full ROM Left upper extremity: full ROM Right lower extremity: full ROM; no edema Left lower extremity: full ROM; no edema Psych Mental Status: mental status grossly normal Speech and movement: Normal speech and movement present Affect: normal affect Attitude: cooperative Thought process: Normal thought process present Results AMB Hemoglobin A1c AMB Hemoglobin A1c 5.7 % Last Edit by MAYA Sykes on 02/10/25 11:14 Coding Level of Care Code Est Pt Level 4 (56306) Diagnoses Type 2 diabetes mellitus without complication, with long-term current use of insulin E11.9; Z79.4 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: with custodial use Diabetes mellitus complication status: without complication Essential hypertension I10 Hypertension type: essential hypertension Dyslipidemia E78.5 Spondylosis of lumbar spine M47.816 MDD (major depressive disorder), recurrent episode, moderate F33.1 Obesity, Class I, BMI 30-34.9 E66.9 Pain, dental K08.89 Additional Codes Asthma Control Questionnaire - ACT Interpretation: Positive ([id number]) Assessment & Plan Assessment & Plan (1) Type 2 diabetes mellitus: Code(s): E11.9 - Type 2 diabetes mellitus without complications Category: Medical Qualifiers: 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 Today's A1c much improved at 5.7. Will hold Actos and continue on GLP 1. Goal A1c is to remain below 7.0 (2) HTN (hypertension): Code(s): I10 - Essential (primary) hypertension Category: Medical Qualifiers: Hypertension type: essential hypertension Qualified Code(s): I10 - Essential (primary) hypertension Plan: Patient's blood pressure acceptable today in office. Will continue her current dose of antihypertensive medication with goal blood pressure to remain below 140/90 (3) Dyslipidemia: Code(s): E78.5 - Hyperlipidemia, unspecified Category: Medical Plan: Most recent lipid panel showing elevation though at that time patient has stopped using atorvastatin 40 mg. She has not been consistent on statin therapy over the last few months and will recheck her fasting lipid panels to assure normal LDL. Goal LDL to be below 100 (4) Spondylosis of lumbar spine: Code(s): M47.816 - Spondylosis without myelopathy or radiculopathy, lumbar region Category: Medical Plan: Patient has a long history of lower lumbar spine pain has done physical therapy and has gotten injections in her lower back though have not given her any long- lasting relief. Does use tramadol on a p.r.n. basis with good relief temporarily. (5) MDD (major depressive disorder), recurrent episode, moderate: Code(s): F33.1 - Major depressive disorder, recurrent, moderate Category: Medical Plan: Patient's PHQ-9 score positive for mild depression which has been existing condition for her. Patient continues to follow a mental health therapist and a psychiatrist. She feels fairly stable on her mental health meds though does have breakthrough depression thoughts in moods. (6) Obesity, Class I, BMI 30-34.9: Code(s): E66.9 - Obesity, unspecified Category: Medical Plan: Patient does understand her BMI is 30 will continue trying to bit physically too her intake diet. Has lost weight since increasing her dose of Mounjauro. (7) Pain, dental: Code(s): K08.89 - Other specified disorders of teeth and supporting structures Category: Medical Plan: As per HPI patient has been experiencing dental pain since recent tooth removal. She has upcoming appointment in 2 weeks for evaluation by her dentist again. Will supply patient with pain medication and prednisone for the inflammation in her mouth. Orders: Orders IRON PROFILE Today D50.9 - Iron deficiency anemia, unspecified, R10.13 - Epigastric pain AMB Hemoglobin A1c Today E11.9 - Type 2 diabetes mellitus without complications, Z79.4 - skilled nursing (current) use of insulin Medications: Refilled tramadol 50 mg PO BID 7 days 14 tabs 0RF Pain M54.2 - Cervicalgia prednisone Take 3 tablets x3 days, 2 tablets x3 days, 1 tablet x3 days 10 mg PO DIRECTED 9 days 18 tabs 0RF J01.10 - Acute frontal sinusitis, unspecified Discontinued azithromycin Discontinued Reason: Doctor's Order For 250 mg dose pack: take 500 mg today (day 1), then 250 mg for 4 days (days 2-5) PO 6 tabs 0RF J01.10 - Acute frontal sinusitis, unspecified On Hold pioglitazone Hold Comment: Doctor's Order 15 mg PO DAILY 30 days 30 tabs 1RF E11.9 - Type 2 diabetes mellitus without complications, 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 LDL to be below 100, blood pressure to remain below 140/90 Barriers: Adherence to physical activity and healthy eating habits
[2025-02-10 10:50] VITALS: BP 118/70; PULSE 70; TEMP 36.2; O2SAT 98; BMI 30.9
--- OUTSIDE RECORDS SUMMARY | 2025-02-10 12:35 | XMS_ITS | Clinical Summary ---
Author Organization [employer] Address [address] [facility] 7[address] [place] [address] Care Team Providers Care Golf Cart Repairer Name Role Phone Unavailable Primary Care Provider Unavailabl e Allergies Active Allergy Reactions Criticality Noted Date Comments Lisinopril Unknown 12/17/2024 Shellfish-Derived Products Unknown Other Reaction(s): Other (See Comments) Sulfa Antibiotics 10/25/2014 Other Reaction(s): Hives/Urticaria Reaction not mentioned Medications sodium chloride 0.9 % solution 250 mL with bezlotoxumab 1000 MG/40ML solution 10 mg/kg Infuse 925 mg into a venous catheter. 03/25/20 20 Active Cholecalciferol 10 MCG (400 UNIT) chewable tablet Cholecalciferol 11/22/19 24 Active LORazepam 1 MG/0.5ML concentration Take 1 mg by mouth. 06/29/20 16 Active traMADol (Ultram) 50 MG tablet TAKE 1 TABLET BY MOUTH EVERY DAY FOR 10 DAYS Oral for 10 Days Active telmisartan (MIcarDIS) 20 MG tablet Oral for 90 Days Act patel atorvastatin (Lipitor) 20 MG tablet Take 20 mg by mouth. 04/11/20 20 Active cholecalciferol (Vitamin D-3) 50 MCG (2000 UT) tablet 08/03/20 24 Active clonazePAM (KlonoPIN) 2 MG tablet 12/04/19 25 Active dicyclomine (Bentyl) 20 MG tablet Oral for 10 Days Act patel doxycycline (Vibra-Tabs) 100 MG tablet TAKE 1 TABLET BY MOUTH 2 TIMES PER DAY FOR 10 DAYS LIMITS SUN EXPOSURE WHILE ON THIS ANTIBIOTIC 04/26/20 24 Active famotidine (Pepcid) 40 MG tablet Oral for 90 Days Act patel fenofibrate (Tricor) 48 MG tablet TAKE 1 TABLET BY MOUTH DAILY Oral for 90 Days 04/11/20 20 Active fluconazole (Diflucan) 150 MG tablet Take 1 tablet by mouth Once per day. 04/29/20 24 Active fluticasone (Flonase) 50 MCG/ACT nasal spray SPRAY 2 SPRAYS INTRANASALLY DAILY Nasal for 30 Days Active gabapentin (Neurontin) 600 MG tablet 12/04/19 25 Active ibuprofen 800 MG tablet 3 times a day. 11/22/19 24 Active omeprazole (PriLOSEC) [address] capsule Oral for 90 Days Ac tive metFORMIN (Glucophage) 1000 MG tablet Oral for 90 04/11/20 20 Active ondansetron (Zofran) 4 MG tablet take 1 tablet by mouth every 8 hours as needed for nausea and vomiting 01/30/20 24 Active pantoprazole (ProtoNix) 40 MG EC tablet 12/04/19 25 Active zolpidem (Ambien) 10 MG tablet TAKE 1 TABLET BY MOUTH EVERYDAY AT BEDTIME Oral for 30 Days 04/11/20 20 Active tiZANidine (Zanaflex) 2 MG tablet PLEASE SEE ATTACHED FOR DETAILED DIRECTIONS 05/22/20 24 Active Mounjaro 5 MG/0.5ML solution auto-injector 11/09/19 25 Active sucralfate (Carafate) 1 g tablet 12/04/19 25 Active Sodium Fluoride (Denta 5000 Plus) 1.1 % cream Dental for Active predniSONE (Deltasone) 10 MG tablet 11/09/19 25 Active oxyCODONE-acetam inophen (Percocet) 5-325 MG tabletIndication s:History of third molar tooth extraction, unspecified edentulism class Take 1 tablet by mouth every 6 (six) hours if needed for severe pain for up to 10 doses. 10 tablet 01/23/20 25 Active cyclobenzaprine (Flexeril) 5 MG tabletIndication s:Myalgia of mastication muscle Take 1 tablet (5 mg) by mouth 3 times daily for 7 days. 21 tablet 02/06/20 25 025 Active oxyCODONE (Roxicodone) 5 MG immediate release tabletIndication s:History of third molar tooth extraction, unspecified edentulism class Take 1 tablet (5 mg) by mouth every 6 (six) hours if needed for severe pain for up to 5 days. 15 tablet 01/14/20 25 025 amoxicillin (Amoxil) 500 MG capsule Take 1 capsule (500 mg) by mouth every 8 (eight) hours for 7 days. 21 capsule 01/14/20 25 025 ibuprofen 600 MG tablet Take 1 tablet (600 mg) by mouth 3 times daily for 10 days. 30 tablet 01/20/20 25 025 chlorhexidine (Peridex) 0.12 % solution Use 15 mL in the mouth or throat if needed for wound care for up to 14 days. 473 mL 01/20/20 25 025 amoxicillin-clav ulanate (Augmentin) 875-125 MG tabletIndication s:History of third molar tooth extraction, unspecified edentulism class Take 1 tablet by mouth 2 times daily for 5 days. 10 tablet 01/23/20 25 025 Active Problems Problem Noted Date Diagnosed Date Class 1 obesity 12/17/2024 Thyroid nodule 12/17/2024 Asthma 01/16/2015 Abnormal chest x-ray 10/25/2014 Overview (12/17/2024): Stable left hilar lymph nodes Abnormal CT scan 10/25/2014 Overview (12/17/2024): abd CT 2012 / prior granulomatous disease Back pain, chronic 10/25/2014 Nephrolithiasis 10/25/2014 Overview (12/17/2024): Followed by [facility] Hyperlipidemia 08/26/2014 Major depression 08/26/2014 Overview (12/17/2024): Follows at [facility] Panic attacks 08/26/2014 Encounters Date Type Department Care Team Description 02/05/2025 2:00 PM EDT Office Visit [facility] ADULT DENTAL [address] [place] [address] Pattie Lilly, MARYURI Myalgia of mastication muscle (Primary Dx) 01/27/2025 2:30 PM EDT Office Visit [facility] ADULT DENTAL [address] [place] [address] Kwesi Bragg DMD 01/22/2025 9:30 AM EDT Office Visit [facility] ADULT DENTAL [address] [place] [address] Rebecca Agarwal, DDS History of third molar tooth extraction, unspecified edentulism class (Primary Dx) 01/19/2025 11:30 AM EDT Office Visit [facility] ADULT DENTAL [address] [place] [address] Pattie Lilly, DDS 01/13/2025 8:00 AM EDT Office Visit [facility] ADULT DENTAL [address] [place] [address] LillyWilsonia, DDS History of third molar tooth extraction, unspecified edentulism class (Primary Dx) 12/17/2024 2:30 PM EST Office Visit [facility] ADULT DENTAL [address] [place] [address] Pattie Lilly, DDS from Last 3 Months Social History Tobacco Use Types Packs/Day Years Used Date Smoking Tobacco: Never Assessed Comments Unknown Sex and Gender Information Value Date Recorded Sex Assigned at Female 08/27/2022 10:21 AM EDT Legal Sex Female 10:21 AM EDT Gender Identity Female 12/17/2024 10:14 AM EST Sexual Orientation Straight 12/17/2024 10 :14 AM EST Last Filed Vital Signs Vital Sign Reading Time Taken Comments Blood Pressure 132/82 01/13/2025 8:14 AM EDT Pulse - - Temperature - - Respiratory Rate - - Oxygen Saturation - - Inhaled Oxygen Concentration - - Weight - - Height - - Body Mass Index - - Plan of Treatment Upcoming Encounters Date Type Department Care Team (Late st Contact Info) Description 03/10/2025 10:45 AM EDT Office Visit [facility] ADULT DENTAL [address] [place] [address] Kwesi Bragg, DMD [address] [place] [address] Health Maintenance Due Date Last Done Comments CT Colonography 1966 Colonoscopy 1966 Colorectal Cancer Screening 1966 Depression Screening 1966 FIT DNA/Cologuard 1966 FIT 1966 FOBT 1966 HIV Screening 1966 SDOH Screening 1966 Sigmoidoscopy 1966 Alcohol/Substance Use Screening 1978 Tobacco Screening 1978 Hepatitis C Screening 1984 Hepatitis B Vaccines (1 of 3 - 19+ 3-dose series) 1985 Pap Smear 1987 Cervical Cancer Screening 1996 HPV/Cotest 1996 Mammogram 2006 Zoster Vaccines (1 of 2) 2016 Dental X-Ray: Bitewings 05/13/2019 05/12/2018 Dental Oral Exam 07/17/2019 01/13/2019, 05/12/2018 Dental Prophylaxis 07/17/2019 01/13/2019, 05/13/2018 Pneumococcal Vaccine: 50+ Years (2 of 2 - PCV) 10/09/2020 10/09/2019 Dental X-Ray: Full Mouth 05/13/2021 05/12/2018 COVID-19 Vaccine ( season) 2024 10/26/2021, 01/26/2021, 01/10/2021, Additional history exists Influenza Vaccine (#1) 2024 2, 10/31/2021, 08/03/2019, Additional history exists DTaP/Tdap/Td Vaccines (3 - Td or Tdap) 05/19/2033 05/19/2023, 10/29/2014 RSV Patients and Patients Aged 60 years or older (1 - 1-dose 75+ series) 2041 HIB Vaccines Aged Out No longer eligi ble based on patient's age to complete this topic HPV Vaccines Aged Out No longer eligi ble based on patient's age to complete this topic Hepatitis A Vaccines Aged Out No long er eligible based on patient's age to complete this topic IPV Vaccines Aged Out No longer eligi ble based on patient's age to complete this topic Meningococcal Vaccine Aged Out No fili ant eligible based on patient's age to complete this topic RSV under 20 months Aged Out No longe r eligible based on patient's age to complete this topic Rotavirus Vaccines Aged Out No longer eligible based on patient's age to complete this topic Procedures Procedure Name Priority Date/Time Associated Diagnosis Comments NO CHARGE PROCEDURE Routine 02/05/2025 2 :00 PM EDT RE-EVAL - POST-OP OFFICE VISIT Routine 01/27/2025 2:30 PM EDT NO CHARGE PROCEDURE Routine 01/22/2025 9 :30 AM EDT LIMITED ORAL EVALUATION - PROBLEM FOCUSED Routine 01/19/2025 11:30 AM EDT 16 EXTRACTION, ERUPTED TOOTH OR EXPOSED ROOT (ELEVATION/FORCEPS REMOVAL) Routine 01/13/2025 8:00 AM EDT 32 EXTRACTION, ERUPTED TOOTH REQ REMOVAL OF BONE AND/OR SECTIONING OF TOOTH Routine 01/13/2025 8:00 AM EDT 17 EXTRACTION, ERUPTED TOOTH REQ REMOVAL OF BONE AND/OR SECTIONING OF TOOTH Routine 01/13/2025 8:00 AM EDT 1 EXTRACTION, ERUPTED TOOTH OR EXPOSED ROOT (ELEVATION/FORCEPS REMOVAL) Routine 01/13/2025 8:00 AM EDT LIMITED ORAL EVALUATION - PROBLEM FOCUSED Routine 12/17/2024 2:30 PM EST PROPHYLAXIS - ADULT Routine 01/13/2019 1 2:00 AM EDT PERIODIC ORAL EVALUATION - ESTABLISHED PATIENT Routine 01/13/2019 12:00 AM EDT INTRAORAL - COMPLETE SERIES OF RADIOGRAPHIC IMAGES Routine 05/12/2018 12:00 AM EDT from Last 3 Months or Most Recently Relevant to Health Maintenance Insurance DENTAL [facility]
--- OUTSIDE RECORDS SUMMARY | 2025-02-10 12:35 | XMS_ITS | Encounter Summary ---
Author Organization [employer] Address [address] [facility] [address] [place] [address] Care Team Providers Care Food Service Sales Representatives Name Role Phone Unavailable Primary Care Provider Unavailabl e Reason for Visit * Reason Comments Dental Pain Encounter Details Date Type Department Care Team (Late st Contact Info) Description 02/05/2025 2:00 PM EDT Office Visit [facility] ADULT DENTAL [address] [place] [address] Pattie Lilly DDS [address] [place], [place] [id number] Myalgia of mastication muscle (Primary Dx) Social History Tobacco Use Types Packs/Day Years Used Date Smoking Tobacco: Never Assessed Comments Unknown Sex and Gender Information Value Date Recorded Sex Assigned at Female 08/27/2022 10:21 AM EDT Legal Sex Female 10:21 AM EDT Gender Identity Female 12/17/2024 10:14 AM EST Sexual Orientation Straight 12/17/2024 10 :14 AM EST documented as of this encounter Progress Notes * Pattie Lilly DDS - 02/05/2025 2:00 PM EDT Dental procedures in this visit D9999 - NO CHARGE PROCEDURE (Completed) Service provider: Pattie Lilly DDS Billing provider: Vinicius Feliz DDS Patient ID: Debra Mandel is a 59 y.o. female. Time Out: Date: 02/05/2025 Location: [facility] Tooth: #17 Procedure: Exam Verified the above with patient, assistant hall director, and provider. Confirmed via patient's chart, intraorally and by radiographs. Cost And Sales Record Supervisor: not applicable 59 y.o. y/o female presents for limited exam with Dr. Pattie Lilly DDS Medical history: Reviewed in EHR Vitals: There were no vitals taken for this visit. Allergies: Reviewed in EHR Medications: Reviewed in EHR Radiographs taken: none taken CHIEF COMPLAINT: after the extraction was done my teeth has been hurting me still, I feel a sharp pain irradiating to my front teeth and my face its still swelling Discussion: During visit clinical evaluation was done. Upon evaluation it was noted mild food stuckin the alveolar socket of 17 & 32 area where patient was complaining of pain. During visit areawas clean and rinsed with peridex in the socket. PT was given syringe and was advised to clean and rinse area after every meal. PT was also advised to keep using Dr. Bragg previous recommendation andto come back for a consultation with Dr. Bragg to evaluate the irradiating pain she feeling. Pt agreed & understood. Rx: cyclobenzaprine (Flexeril) 5 MG tablet Take 1 tablet (5 mg) by mouth 3 times daily for 7 days., Starting Sat02/05/2025, Until Sat02/12/2025, Normal NV: consult with Dr. Bragg Provider: Dr. Pattie Lilly DDS Dental Tree Feller: Luis Valenzuela Attending: Dr. Feliz * Vinicius Feliz DDS - 02/05/2025 2:00 PM EDT Reviewed and signed. documented in this encounter Plan of Treatment Upcoming Encounters Date Type Department Care Team (Late st Contact Info) Description 03/10/2025 10:45 AM EDT Office Visit [facility] ADULT DENTAL [address] [place] [address] Kwesi Bragg, JODIE [address] [place] [address] documented as of this encounter Procedures Procedure Name Priority Date/Time Associated Diagnosis Comments NO CHARGE PROCEDURE Routine 02/05/2025 2:00 PM EDT documented in this encounter Visit Diagnoses Diagnosis Myalgia of mastication muscle- Primary documented in this encounter
--- OUTSIDE RECORDS SUMMARY | 2025-02-10 12:35 | XMS_ITS | Encounter Summary ---
Author Organization [facility] Address [address] [place] [address] Care Team Providers Care Eligibility And Occupancy Interviewer Name Role Phone Wilbert Moreau Primary Care Provider Unavailabl e Encounter Details Date Type Department Care Team Description 06/09/2016 Release of Information Medical Records [address] [place] [id number] Abstract, Provider Social History Tobacco Use Types Packs/Day Years Used Date Smoking Tobacco: Former Smokeless Tobacco: Never Comments:quit 11 years ago, smoked 1 ppd starting at age 16 Alcohol Use Standard Drinks/Week Comments Yes 0 (1 standard drink = 0.6 oz pur e alcohol) social Sex Assigned at Date Recorded Not on file documented as of this encounter Plan of Treatment Not on file documented as of this encounter Visit Diagnoses Not on filedocumented in this encounter Care Teams Eligibility And Occupancy Interviewer Relationship Specialty Start Date End Date Wilbert Moreau PCP - General Family Practice 04/19/16 documented as of this encounter
--- OUTSIDE RECORDS SUMMARY | 2025-02-10 12:35 | XMS_ITS | Encounter Summary ---
Author Organization [facility] [facility] Address [address] [facility] 7 [place] [address] Care Team Providers Care Outreach Rep Name Role Phone Unavailable Primary Care Provider Unavailabl e Encounter Details Date Type Department Care Team (Latest Contact Info) Description 01/13/2019 Abstract [facility] CONVERSIONS Dental, Provider, DDS Social History Tobacco Use Types Packs/Day Years Used Date Smoking Tobacco: Never Assessed Comments Unknown Sex and Gender Information Value Date Recorded Sex Assigned at Female 08/27/2022 10:21 AM EDT Legal Sex Female 10:21 AM EDT Gender Identity Female 12/17/2024 10:14 AM EST Sexual Orientation Straight 12/17/2024 10 :14 AM EST documented as of this encounter Plan of Treatment Upcoming Encounters Date Type Department Care Team (Late st Contact Info) Description 03/10/2025 10:45 AM EDT Office Visit [facility] ADULT DENTAL [address] [place] [address] Kwesi Bragg, JODIE [address] [place] [address] documented as of this encounter Visit Diagnoses Not on filedocumented in this encounter
--- OUTSIDE RECORDS SUMMARY | 2025-02-10 12:35 | XMS_ITS | Encounter Summary ---
Author Organization [facility] Address [address] [place] [address] Care Team Providers Care Steel Hanger Name Role Phone Iqra Kurtz DO Primary Care Pro vider Unavailable Wilbert Moreau Primary Care Provider Unavailabl e Encounter Details Date Type Department Care Team Description 08/17/2015 Hospital Medical Records [address] [place] [id number] Maritza Larsen MD Social History Tobacco Use Types Packs/Day Years [...] on filedocumented in this encounter Care Teams Steel Hanger Relationship Specialty Start Date End Date Iqra Kurtz DO PCP - General Internal Medicine 08/24/14 04/18/16 Wilbert Moreau PCP - General Family Practice 04/19/16 documented as of this encounter
--- OUTSIDE RECORDS SUMMARY | 2025-02-10 12:35 | XMS_ITS ---
Author Organization [facility] Address [address] [facility] [place] [address] Care Team Providers Care Laboratory Manager Name Role Phone Silvino Andujar Primary Care Provider Unavailab Jose Vanegasmie Unavailable [phone] Allergies Allergen (clinical drug ingredient) Drug/Non Drug Allergy documented on EMR Reaction Allergy Type Onset Date Status lisinopril Lisinopril Unknown Drug Allergy Activ e Shellfish (FN) Shellfish-derived Products Unknown Drug Allergy Active REASON FOR VISIT snow Medications Medication SIG (Take, Route, Frequency, Duration) Notes Start Date End Date Status Ozempic (1 MG/DOSE) Active FreeStyle Precision Steffen Test 11/22/2023 Active Gabapentin 400 MG Oral for 90 Days Active Fluticasone Propionate 50 MCG/ACT SPRAY 2 SPRAYS INTRANASALLY DAILY Nasal for 30 Days Not-Taking traMADol HCl 50 MG TAKE 1 TABLET BY LALITHA EVERY DAY FOR 10 DAYS Oral for 10 Days Active Physical Therapy . . . 2-3x/week for 3- 4 weeks 04/22/2024 Active Night Splint AFO - L1930 1 wear at rest for 30 days Active Physical Therapy . . . 2-3x/week for 3- 4 weeks 01/02/2024 Active metFORMIN HCl 1000 MG Oral for 90 Not-Taking Trulicity 0.75 MG/0.5ML Subcutaneous for 28 Not-Taking Vitamin B-6 50 MG Oral for 90 Active Fluticasone Propionate HFA 110 MCG/ACT INHALE 1 PUFF TWICE DAILY FOR 30 DAYS Inhalation for 60 Active Denta 5000 Plus 1.1 % Dental for 21 Active Sucralfate 1 GM/10ML Oral for 30 Active Trimethoprim 11/22/2023 Active Telmisartan 20 MG Oral for 90 Days Active Ibuprofen 800 MG 1 tablet with food o r milk as needed Orally every 8 hrs 11/22/2023 Active Pyridoxine HCl 50 MG 1 tablet Orally for 30 day(s) 11/22/2023 Active Dicyclomine HCl 20 MG Oral for 10 Days Active Famotidine 40 MG Oral for 90 Days Active Omeprazole 40 MG Oral for 90 Days Active Fenofibrate 48 MG TAKE 1 TABLET BY LALITHA TH DAILY Oral for 90 Days Active Flovent HFA 110 MCG/ACT Inhalation for 30 Days Active Albuterol Sulfate (2.5 MG/3ML) 0.083% Inhalation for 12 Days Act patel Cholecalciferol 11/22/2023 Act patel FreeStyle Precision Steffen System w/Device as directed 11/22/2023 Active Cetirizine HCl 10 MG Oral for 90 Days Active Polymyxin B-Trimethoprim 15065-4.1 UNIT/ML PLACE 1 DROP INTO THE EYE(S) EVERY 4 HOURS FOR 7 DAYS WHILE AWAKE DO NOT EXCEED 6 DOSES IN 24 HOURS Ophthalmic for 12 Days Active Acetaminophen Extra Strength 500 MG TAKE 2 TABLETS ORALLY 4 TIMES A DAY NEEDED FOR FEVER OR PAIN Oral for 2 Days Active Albuterol Sulfate HFA 108 (90 Base) MCG/ACT Inhalation for 25 Days Active Zolpidem Tartrate 10 MG TAKE 1 TABLET BY MOUTH EVERYDAY AT BEDTIME Oral for 30 Days Active Citalopram Hydrobromide 20 MG Oral for 30 Days Active Atorvastatin Calcium 40 MG TAKE 1 TABLET BY MOUTH EVERYDAY AT BEDTIME Oral for 90 Days Active clonazePAM 1 MG Oral for 30 Days Active Encounters Encounter Location Date Provider Diagnosis [facility] [address] [address] 12/03/2024 Sandra Garcia Plan Of Treatment No Information Progress Notes * Brittaney MENDOZAOB:1965 (59 yo F)Acc No.[id number]:12/03/2024 Progress Note Patient:?Debra MENDOZA Provider:?Sandra Garcia DPM :1965???Age:59 Y???Sex:Female D ate:12/03/2024 Address:[address] [place] [address] [id number] Pcp:Silvino Andujar Subjective: * Chief Complaints: * ???1. Snow. * Medical History:?Anxiety, Ar thritis, Asthma, Back,Hip,and Knee pain, CAD (Cholesterol), Covid-19, Depression, Diabetic, Diverticulosis, Fibromyalgia, Headaches/Migraines, High blood pressure, Stomach ulcer, Thyroid, Chicken pox. * Medications:?Taking Ozempic (1 MG/DOSE) , Taking traMADol HCl 50 MG Tablet TAKE 1 TABLET BY MOUTH EVERY DAY FOR 10 DAYS Oral , Taking FreeStyle Precision Steffen Test , Taking Gabapentin 400 MG Capsule Oral , Taking Atorvastatin Calcium 40 MG Tablet TAKE 1 TABLET BY MOUTH EVERYDAY AT BEDTIME Oral , Taking clonazePAM 1 MG Tablet Oral , Taking Zolpidem Tartrate 10 MG Tablet TAKE 1 TABLET BY MOUTH EVERYDAY AT BEDTIME Oral , Taking Citalopram Hydrobromide 20 MG Tablet Oral , Taking Cetirizine HCl 10 MG Tablet Oral , Taking Polymyxin B-Trimethoprim 67381-3.1 UNIT/ML Solution PLACE 1 DROP INTO THE EYE(S) EVERY 4 HOURS FOR 7 DAYS WHILE AWAKE DO NOT EXCEED 6 DOSES IN 24 HOURS Ophthalmic , Taking Xero Steffen System w/Device Kit as directed , Taking Acetaminophen Extra Strength 500 MG Tablet TAKE 2 TABLETS ORALLY 4 TIMES A DAY NEEDED FOR FEVER OR PAIN Oral , Taking Albuterol Sulfate HFA 108 (90 Base) MCG/ACT Aerosol Solution Inhalation , Taking Albuterol Sulfate (2.5 MG/3ML) 0.083% Nebulization Solution Inhalation , Taking Cholecalciferol , Taking Fenofibrate 48 MG Tablet TAKE 1 TABLET BY MOUTH DAILY Oral , Taking Flovent HFA 110 MCG/ACT Aerosol Inhalation , Taking Omeprazole 40 MG Capsule Delayed Release Oral , Taking Pyridoxine HCl 50 MG Tablet 1 tablet Orally , Taking Telmisartan 20 MG Tablet Oral , Taking Ibuprofen 800 MG Tablet 1 tablet with food or milk as needed Orally every 8 hrs , Taking Famotidine 40 MG Tablet Oral , Taking Dicyclomine HCl 20 MG Tablet Oral , Taking Trimethoprim , Taking Denta 5000 Plus 1.1 % Cream Dental , Taking Sucralfate 1 GM/10ML Suspension Oral , Taking Vitamin B-6 50 MG Tablet Oral , Taking Fluticasone Propionate HFA 110 MCG/ACT Aerosol INHALE 1 PUFF TWICE DAILY FOR 30 DAYS Inhalation , Taking Night Splint AFO - L1930 1 wear at rest , Taking Physical Therapy . . . . 2-3x/week , Taking Physical Therapy . . . . 2-3x/week , Not-Taking/PRN metFORMIN HCl 1000 MG Tablet Oral , Not-Taking/PRN Trulicity 0.75 MG/0.5ML Solution Pen- injector Subcutaneous , Not-Taking/PRN Fluticasone Propionate 50 MCG/ACT Suspension SPRAY 2 SPRAYS INTRANASALLY DAILY Nasal * Allergies:?Lisinopril, Shell fish-derived Products. Objective: * Vitals:? Assessment: Plan: * Treatment: * Images: * The named appointment provid er may or may not be the originator of this progress note, and it is not deemed complete until electronically signed by the appointment provider. Sign off status: Pending * Provider:?Sandra Garcia DPM Date:?2024 Generated for Dalila ambrose/Aleida/Radha on:?02/10/2025 12:35 PM EDT
--- OUTSIDE RECORDS SUMMARY | 2025-02-10 12:35 | XMS_ITS | Clinical Summary ---
Author Organization [facility] Address [address] [facility] [place] [address] Care Team Providers Care Gear Changer Name Role Phone Wilbert Moreau Primary Care Provider Unavailabl e Allergies Active Allergy Reactions Severity Noted Date Comments Sulfa Drugs Hives/Urticaria 10/25/2014 Reaction not mentioned Medications Medication Sig Dispensed Refills Start Date End Date Status ALBUTEROL SULFATE 108 (90 BASE) MCG/ACT Aero SolnIndications:Dysuri a,Asthma, mild intermittent, uncomplicated Inhale 2 Puffs into the lungs every 4 hours as needed for Cough or Wheezing. 1 Inhaler 5 01/16/2015 Active fluticasone 50 MCG/ACT nasal spray instill 1 spray into each nostril once daily 16 g 4 03/30/2015 Active methocarbamol (ROBAXIN) 500 MG tablet Take 1 Tab by mouth 4 times daily. 40 Tab 0 03/15/2016 Active Tyrone-3 Fatty Acids (FISH OIL) 1000 MG Cap Take 1,000 mg by mouth 3 times daily. 90 Cap 2 03/15/2016 Active Active Problems Problem Noted Date Asthma 01/16/2015 Nephrolithiasis 10/25/2014 Overview: Followed by [facility] Urology Abnormal CT scan 10/25/2014 Overview: abd CT 2013 /spleen prior granulomatous disease Back pain, chronic 10/25/2014 Abnormal chest x-ray 10/25/2014 Overview: Stable left hilar lymph nodes Hyperlipidemia 08/26/2014 Major depression 08/26/2014 Overview: Follows at [facility] Panic attacks 08/26/2014 Thyroid nodule Immunizations Name Administration Dates Next Due Tdap 10/29/2014 Family History Medical History Relation Name Comments Depression Brother 2 hiv [Other] Brother 3 Seizures Daughter 2 Hypertension Father depression Diabetes Mother htn, cancer Relation Name Status Comments Brother 1 Brother 2 Brother 3 Daughter 1 Daughter 2 Father Mother Social History Tobacco Use Types Packs/Day Years Used Date Smoking Tobacco: Former Smokeless Tobacco: Never Comments:quit 11 years ago, smoked 1 ppd starting at age 16 Alcohol Use Standard Drinks/Week Comments Yes 0 (1 standard drink = 0.6 oz pur e alcohol) social Sex Assigned at Date Recorded Not on file Last Filed Vital Signs Vital Sign Reading Time Taken Comments Blood Pressure 116/78 03/15/2016 2:46 PM EDT Pulse 74 03/15/2016 2:46 PM EDT Temperature 36.6 ??C (97.9 ??F) 03/15/2016 2:46 PM ED T Respiratory Rate 14 03/15/2016 2:46 PM EDT Oxygen Saturation 99% 01/19/2015 9:15 AM EDT Inhaled Oxygen Concentration - - Weight 92.4 kg (203 lb 12.8 oz) 03/15/2016 2:46 PM EDT Height 164.5 cm (5' 4.75 ) 03/15/2016 2:46 PM ED T Body Mass Index 34.18 03/15/2016 2:46 PM EDT Plan of Treatment Health Maintenance Due Date Last Done Comments Covid-19 Vaccine (#1) 1966 TOBACCO CHECK/ADVISE 1984 PNEUMOCOCCAL VACCINE FOR HIG H RISK PATIENTS (#1) 1985 MAMMOGRAM 01/22/2016 01/21/2015, 12/27 (External Completion), 04/27/2014 (External Completion), Additional history exists COLON CANCER SCREENING 2016 SHINGLES VACCINE (1 of 2) 2016 CERVICAL CANCER SCREENING 04/27/20172013 (External Completion) BASELINE HEALTH EXAM 40-64 03/08/201803/08, 03/06/2016, 12/12/2015, Additional history exists CHOLESTEROL SCREENING 03/08/2021 03/08/2016, 015 BMI CHECK/ADVISE 10/28/2024 03/15/2016, , 03/11/2015, Additional history exists DEPRESSION SCREENING/FOLLOWUP 10/28/2024, 12/12/2015, 12/12/2015, Additional history exists SOCIAL NEEDS SCREENING 10/28/2024 DTAP/TDAP/TD (2 - Td or Tdap) 10/29/2024 10/29/2014 INFLUENZA (Season Ended) 2025 HEPATITIS C SCREENING Completed 10/29/2014 Care Teams Gear Changer Relationship Specialty Start Date End Date Wilbert Moreau PCP - General Family Practice 04/19/16
--- OUTSIDE RECORDS SUMMARY | 2025-02-10 12:35 | XMS_ITS | Encounter Summary ---
Author Organization [facility] Address [address] [place] [address] Care Team Providers Care Geospatial Extractor Analysis Name Role Phone Iqra Kurtz DO Primary Care Pro vider Unavailable Wilbert Moreau Primary Care Provider Unavailabl e Encounter Details Date Type Department Care Team Description 11/15/2015 Hospital Medical Records [address] [place] [address] Cheyenne Lowry MD [address] [place] [address] [address] [place] [address] Social History Tobacco Use Types Packs/Day Years [...] on filedocumented in this encounter Care Teams Geospatial Extractor Analysis Relationship Specialty Start Date End Date Iqra Kurtz DO PCP - General Internal Medicine 08/24/14 04/18/16 Wilbert Moreau PCP - General Family Practice 04/19/16 documented as of this encounter
--- OUTSIDE RECORDS SUMMARY | 2025-02-10 12:35 | XMS_ITS ---
Author Organization [facility] Address [address] [place] [address] Care Team Providers Care Calciner Operator Name Role Phone Silvino Andujar Primary Care Provider Unavailab Sandra Vanegas Unavailable [phone] Encounters Encounter Location Date Provider Diagnosis [facility] [address] [place] [address] 01/07/2025 Sandra Garcai Plan Of Treatment No Information Progress Notes * Jeannine MENDOZAeDOB:1965 (59 yo F)Acc No.[id number]:01/07/2025 Progress Note Patient:Debra PRESTON Provider:?Sandra Garcia DPM :1965???Age:59 Y???Sex:Female D ate:01/07/2025 Address:[address] [place] [address] [phone] Pcp:Silvino Andujar Subjective: * Chief Complaints: * ??? * Medical History:? Objective: * Vitals:? Assessment: Plan: * Treatment: * Images: * The named appointment provid er may or may not be the originator of this progress note, and it is not deemed complete until electronically signed by the appointment provider. Sign off status: Pending * Provider:Cameron Garcia DPM Date:?2024 Generated for Dalila ambrose/Aleida/eTransmitting on:?02/10/2025 12:34 PM EDT
--- OUTSIDE RECORDS SUMMARY | 2025-02-10 12:35 | XMS_ITS | Patient Health Record ---
Author Organization [facility] Address [address] [facility] [place] [address] Care Team Providers Care Retail Client Solutions Analyst Name Role Phone Silvino Andujar Primary Care Provider Unavailab Sandar Vanegas Unavailable [phone] Allergies Allergen (clinical drug ingredient) Drug/Non Drug Allergy documented on EMR Reaction Allergy Type Onset Date Status lisinopril Lisinopril Unknown Drug Allergy Activ e Shellfish (FN) Shellfish-derived Products Unknown Drug Allergy Active Results Component Value Reference Range Notes HEMOGLOBIN A1C (GLYCOHEMOGLO BIN) Reviewed date:04/22/2024 10:16:20 AM Interpretation: Performing Lab: Notes/Report: HEMOGLOBIN A1C (HH) 6.3 HEMOGLOBIN A1C (GLYCOHEMOGLO BIN) Reviewed date:11/28/2023 12:49:08 PM Interpretation: Performing Lab: Notes/Report: HEMOGLOBIN A1C (HH) 6.5 Reason For Referral No Information Medications Medication SIG (Take, Route, Frequency, Duration) Notes Start Date End Date Status Fenofibrate 48 MG TAKE 1 TABLET BY LALITHA TH DAILY Oral for 90 Days Active Flovent HFA 110 MCG/ACT Inhalation for 30 Days Active Albuterol Sulfate (2.5 MG/3ML) 0.083% Inhalation for 12 Days Act patel Cholecalciferol 11/22/2023 Act patel Acetaminophen Extra Strength 500 MG TAKE 2 TABLETS ORALLY 4 TIMES A DAY NEEDED FOR FEVER OR PAIN Oral for 2 Days Active Fluticasone Propionate 50 MCG/ACT SPRAY 2 SPRAYS INTRANASALLY DAILY Nasal for 30 Days Not-Taking Albuterol Sulfate HFA 108 (90 Base) MCG/ACT Inhalation for 25 Days Active metFORMIN HCl 1000 MG Oral for 90 Not-Taking Trulicity 0.75 MG/0.5ML Subcutaneous for 28 Not-Taking FreeStyle Precision Steffen System w/Device as directed 11/22/2023 Active Cetirizine HCl 10 MG Oral for 90 Days Active Physical Therapy . . . 2-3x/week for 3- 4 weeks 04/22/2024 Active Polymyxin B-Trimethoprim 42481-7.1 UNIT/ML PLACE 1 DROP INTO THE EYE(S) EVERY 4 HOURS FOR 7 DAYS WHILE AWAKE DO NOT EXCEED 6 DOSES IN 24 HOURS Ophthalmic for 12 Days Active Zolpidem Tartrate 10 MG TAKE 1 TABLET BY MOUTH EVERYDAY AT BEDTIME Oral for 30 Days Active Night Splint AFO - L1930 1 wear at rest for 30 days Active Citalopram Hydrobromide 20 MG Oral for 30 Days Active Physical Therapy . . . 2-3x/week for 3- 4 weeks 01/02/2024 Active Atorvastatin Calcium 40 MG TAKE 1 TABLET BY MOUTH EVERYDAY AT BEDTIME Oral for 90 Days Active Vitamin B-6 50 MG Oral for 90 Active clonazePAM 1 MG Oral for 30 Days Active Fluticasone Propionate HFA 110 MCG/ACT INHALE 1 PUFF TWICE DAILY FOR 30 DAYS Inhalation for 60 Active FreeStyle Precision Steffen Test 11/22/2023 Active Denta 5000 Plus 1.1 % Dental for 21 Active Gabapentin 400 MG Oral for 90 Days Active Sucralfate 1 GM/10ML Oral for 30 Active Dicyclomine HCl 20 MG Oral for 10 Days Active traMADol HCl 50 MG TAKE 1 TABLET BY LALITHA TH EVERY DAY FOR 10 DAYS Oral for 10 Days Active Trimethoprim 11/22/2023 Active Famotidine 40 MG Oral for 90 Days Active Ozempic (1 MG/DOSE) Active Telmisartan 20 MG Oral for 90 Days Active Ibuprofen 800 MG 1 tablet with food o r milk as needed Orally every 8 hrs 11/22/2023 Active Omeprazole 40 MG Oral for 90 Days Active Pyridoxine HCl 50 MG 1 tablet Orally for 30 day(s) 11/22/2023 Active Immunizations Vaccine Route Administration Date Status [...] Polyneuropathy due to type 2 diabetes mellitus (678557099) Type 2 diabetes mellitus with diabetic polyneuropathy (E11.42) Active confirmed Problem Interstitial myositis (98175040) Interstitial myositis of left foot (M60.172) Active confirmed Vital Signs Blood pressure diastolic 75 mm Hg 06/22/2024 Height 5ft6in in 06/22/2024 Blood pressure systolic 123 mm Hg 06/22/2024 Weight 196 lbs 06/22/2024 BMI 31.63 kg/m2 06/22/2024 Procedures Procedure Date Ordered Date Performed Result Body Sit e 70106,[id number] TENDON SHEATH/LIGAMENT 02/13/2024 N/A ,[id number] TENDON SHEATH/LIGAMENT 04/22/2024 N/A Encounters Encounter Location Date Provider Diagnosis [address] [address] 02/13/2024 Sandra Black Pain in left foot M79.672 ; Interstitial myositis of left foot M60.172 ; Plantar fasciitis of left foot M72.2 ; Calcaneal spur, left foot M77.32 ; Bursitis of left foot M77.52 and Type 2 diabetes mellitus with diabetic polyneuropathy E11.42 [facility] [address] 04/22/2024 Sandra Black Interstitial myositi s of left foot M60.172 ; Gastrocnemius equinus of left lower extremity M62.462 ; Pain in left foot M79.672 ; Plantar fasciitis of left foot M72.2 ; Calcaneal spur, left foot M77.32 ; Bursitis of left foot M77.52 and Type 2 diabetes mellitus with diabetic polyneuropathy E11.[address] [address] 06/22/2024 Sandra Garcia Gastrocnemius equinu s of left lower extremity M62.462 ; Plantar fasciitis of left foot M72.2 ; Interstitial myositis of left foot M60.172 ; Pain in left foot M79.672 ; Calcaneal spur, left foot M77.32 ; Bursitis of left foot M77.52 and Type 2 diabetes mellitus with diabetic polyneuropathy E11.[address] [facility] [address] 02/14/2024 Sandra Jose [facility] [address] [address] 08/31/2024 Sandrasean Garcia [facility] [address] [address] 12/03/2024 Sandra Jose [facility] [address] [address] 01/05/2025 Sandra Garcia Assessments Encounter Date Diagnosis (ICD Code) Assessment Notes Treatment Notes Treatment Clinical Notes Section Notes 02/13/2024 Pain in left foot (ICD-10 - [...] foot (ICD-10 - M72.2) Patient Educated with: NADIA SAENZ.pdf (INJECTIONTHE CHARLOTTE.pdf) 02/13/2024 Calcaneal spur, left foot (ICD-10 - M77.32) 04/22/2024 Plantar fasciitis of left foot (ICD-10 - M72.2) Patient Educated with: NADIA GARCIAY.pdf (INJECTIONTHE RAPY.pdf) 06/22/2024 Pain in left foot (ICD-10 - M79.672) 06/22/2024 Calcaneal spur, left foot (ICD-10 - M77.32) 04/22/2024 Calcaneal spur, left foot (ICD-10 - M77.32) 02/13/2024 Bursitis of left foot (ICD-10 - M77.52) 02/13/2024 Type 2 diabetes mellitus with diabetic polyneuropathy (ICD-10 - E11.42) 04/22/2024 Bursitis of left foot (ICD-10 - M77.52) 06/22/2024 Bursitis of left foot (ICD-10 - M77.52) 06/22/2024 Type 2 diabetes mellitus with diabetic polyneuropathy (ICD-10 - E11.42) 04/22/2024 Type 2 diabetes mellitus with diabetic polyneuropathy (ICD-10 - E11.42) Plan Of Treatment Pending Test Test Name Order Date ,[id number] TENDON SHEATH/LIGAMENT 0 01/02/202478966,[id number] TENDON SHEATH/LIGAMENT 0 02/13/202456374,[id number] TENDON SHEATH/LIGAMENT 0 04/22/2024 Insurance Providers Payer Name Payer Address Payer Phone Subscriber Number Group Number Insured Name Patient Relationship to Insured Coverage Start Date Coverage End Date [facility] [employer] Claims [address] [place] [address] [phone] [id number] Debra Mandel Self - patient is the insured Medical (General) History Medical History History ICD Code Anxiety Arthritis asthma Back,Hip,and Knee pain CAD (Cholesterol) covid-19 Depression Diabetic Diverticulosis Fibromyalgia Headaches/Migraines High blood pressure Stomach ulcer thyroid Chicken pox Surgical History Surgery Date(Month/Year) Hospitalization History Reason Date(Month/[place] [facility] [place]om[place]
--- OUTSIDE RECORDS SUMMARY | 2025-02-10 12:35 | XMS_ITS | Encounter Summary ---
Author Organization [facility] Address [address] [place] [address] Care Team Providers Care Quahogger Name Role Phone Iqra Kurtz DO Primary Care Pro vider Unavailable Wilbert Moreau Primary Care Provider Unavailabl e Encounter Details Date Type Department Care Team Description 04/02/2016 Hospital Medical Records [address] [place] [address] Jamie Davis MD [address] [place] [address] Social History Tobacco Use Types Packs/Day Years [...] on filedocumented in this encounter Care Teams Quahogger Relationship Specialty Start Date End Date Iqra Kurtz DO PCP - General Internal Medicine 08/24/14 04/18/16 Wilbert Moreau PCP - General Family Practice 04/19/16 documented as of this encounter
--- OUTSIDE RECORDS SUMMARY | 2025-02-10 12:36 | XMS_ITS ---
Author Organization [facility] Address [address] [place] [address] Care Team Providers Care Work Measurement Engineer Name Role Phone Silvino Andujar Primary Care Provider Unavailab Sandra Vanegas Unavailable [phone] REASON FOR VISIT cx 01/07/25 appt Encounters Encounter Location Date Provider Diagnosis [facility] [address] [place] [address] 01/05/2025 Sandra Garcia Plan Of Treatment No Information Progress Notes * Brittaney MENDOZAOB:1965 (59 yo F)Acc No.[id number]:01/05/2025 Patient:?Debra MENDOZA :1965???Age:59 Y???Sex:Female Address:[address] [place] [address] [place] [address] * true * Date:? Generated for Abii arnol/Aleida/eTransmitting on:?02/10/2025 12:35 PM EDT
--- OUTSIDE RECORDS SUMMARY | 2025-02-10 12:36 | XMS_ITS | Encounter Summary ---
Author Organization [facility] Address [address] [place] [address] Care Team Providers Care Mud Jack Operator Name Role Phone Iqra Kurtz DO Primary Care Pro vider Wilbert Kent Primary Care Provider Unavailabl e Reason for Visit * Reason Onset Date Comments Back Pain 05/02/2015 injection 05/02/2015 Encounter Details Date Type Department Care Team Description 05/02/2015 Telephone Physiatry - [address] [address] Romeo Zhang DO Back Pain; injection Social History Tobacco Use Types Packs/Day Years Used Date Smoking Tobacco: Former Smokeless Tobacco: Never Comments:quit 11 years ago, smoked 1 ppd starting at age 16 Alcohol Use Standard Drinks/Week Comments Yes 0 (1 standard drink = 0.6 oz pur e alcohol) social Sex Assigned at Date Recorded Not on file documented as of this encounter Miscellaneous Notes * Telephone Encounter - Pati Blackwell M.A. - 05/02/2015 9:07 AM EDT If patient would like a follow up appointment , please schedule Next available and ask her to call for cancellations * Telephone Encounter - Emily Gil - 05/02/2015 8:53 AM EDT Patient calling stating she is having pain in her lower back and would like a follow up and possible have an injection. documented in this encounter Plan of Treatment Not on file documented as of this encounter Visit Diagnoses Not on filedocumented in this encounter Care Teams Mud Jack Operator Relationship Specialty Start Date End Date Iqra Kurtz DO PCP - General Internal Medicine 08/24/14 04/18/16 Wilbert Moreau PCP - General Family Practice 04/19/16 documented as of this encounter
--- OUTSIDE RECORDS SUMMARY | 2025-02-10 12:36 | XMS_ITS | Clinical Summary ---
Author [facility] Address [address] [place] [address] Care Team Providers Care Media Marketing Director Name Role Phone Wilbert Moreau DO Primary Care Provider [phone] Surgical History Surgery Date Site/Laterality Comments TONSILLECTOMY PROCEDURE: HISTORICAL TONSILLECTOMY HYSTERECTOMY PROCEDURE: HISTORICAL HYSTERECTOMY OOPHORECTOMY Left PROCEDURE: HISTORICAL OOPHORECTOMY BREAST REDUCTION PROCEDURE: IL BREAST REDUCTION KIDNEY STONE SURGERY PROCEDURE: IL NEPHROLITHOTOMY REMOVAL CALCULUS OTHER SURGICAL HISTORY PROCEDURE: IL HEMORRHOIDECTOMY INT & XTRNL 2/> COLUMN/DIDIER SECTION PROCEDURE: HISTORICAL DELIVERY LAPAROSCOPIC GASTRIC BANDING PROCEDURE: LAP ADJUSTABLE GASTRIC BAND; COMMENT: and then removed on 11/25/15 BELT ABDOMINOPLASTY PROCEDURE: HISTORICAL TUMMY TUCK OTHER SURGICAL HISTORY 01/12/14 PROCEDURE: MAMMOGRAM OTHER SURGICAL HISTORY PROCEDURE: IL HEMORRHOIDECTOMY INTERNAL RUBBER BAND LIGATIONS Medical History Medical History Date Comments Nephrolithiasis 10/25/2014 DX:Nephrolithias is; COMMENT: Followed by [facility] Back pain, chronic 10/25/2014 DX:Back pain, chronic Abnormal CT scan 10/25/2014 DX:Abnormal CT scan Hyperlipidemia 08/26/2014 DX:Hyperlipidemi a Major depression 08/26/2014 DX:Major depres iris Panic attacks 08/26/2014 DX:Panic attacks Abnormal chest x-ray 10/25/2014 DX:Abnormal chest x-ray; COMMENT: Stable left hilar lymph nodes Thyroid nodule DX:Thyroid nodul e Family History Medical History Relation Name Comments Depression Brother 1 Other: hiv Brother 2 Seizures Daughter 1 Hypertension Father depression Diabetes Mother htn, cancer Relation Name Status Comments Brother 1 Brother 2 Brother 3 Daughter 1 Daughter 2 Father Mother Social History Tobacco Use Types Packs/Day Years Used Date Smoking Tobacco: Former Smokeless Tobacco: Never Alcohol Use Standard Drinks/Week Comments Yes 0 (1 standard drink = 0.6 oz pur e alcohol) Comments Unknown Sex and Gender Information Value Date Recorded Sex Assigned at Not on file Legal Sex Female 4:17 AM EST Gender Identity Not on file Sexual Orientation Not on file Obstetrics History Plan of Treatment Health Maintenance Due Date Last Done Comments Breast Cancer Screening 1965 Hepatitis B Vaccines (1 of 3 - 19+ 3-dose series) 1985 Pneumococcal Vaccine: 50+ Ye ars (1 of 2 - PCV) 1985 Pneumococcal Vaccine: Pediat rics (0 to 5 Years) and At-Risk Patients (6 to 64 Years) (1 of 2 - PCV) 1985 Cervical Cancer Screening: P ap Smear 1987 Zoster Vaccines (1 of 2) 2016 Cholesterol Screening (Lipid Panel) 09/30/2022 Colorectal Cancer Screening: Colonoscopy 09/30/2022 Depression Screening 09/30/2022 HIV Screening 09/30/2022 Hepatitis C Screening 09/30/2022 Social Influencers of Health Screening 09/30/2022 COVID-19 Vaccine (1 - 2023-2 5 season) 2024 DTaP,Tdap,and Td Vaccines (2 - Td or Tdap) 10/29/2024 10/29/2014 Influenza Vaccine (Season Ended) 2025 HIB Vaccines Aged Out No longer eligi [...] on patient's age to complete this topic MMR Vaccines Aged Out No longer eligi ble based on patient's age to complete this topic Meningococcal ACWY Vaccine Aged Out N o longer eligible based on patient's age to complete this topic Meningococcal B Vaccine Aged Out No l onger eligible based on patient's age to complete this topic RSV Immunization Patients Un axel 20 months Aged Out No longer eligible b ased on patient's age to complete this topic Varicella Vaccines Aged Out No longer eligible based on patient's age to complete this topic Advance Directives Documents on File Type Date Recorded Patient Funeral Home Makeup Artist Expl anation Health Care Decision (hx) 12/01/2018 AD COREAS DIRECTIVE Health Care Decision (hx) 12/01/2018 AD COREAS DIRECTIVE Health Care Decision (hx) 12/01/2018 AD COREAS DIRECTIVE Care Teams Media Marketing Director Relationship Specialty Start Date End Date Wilbert Moreau DO [address] [address] PCP - General 04/19/16
== END 2025-02-10 11:10 | disposition home or self-care (01) ==
LOC: HO.HMCH 10:38
PROVIDERS: PCP Physician Assistant; Visit Provider Physician Assistant
DX: E11.69 Type 2 diabetes mellitus with other specified complication (principal); Z79.4 Long term (current) use of insulin; F33.1 Major depressive disorder, recurrent, moderate; I10 Essential (primary) hypertension; E78.5 Hyperlipidemia, unspecified; M47.816 Spondylosis without myelopathy or radiculopathy, lumbar region; E66.9 Obesity, unspecified; K08.89 Other specified disorders of teeth and supporting structures

== ENCOUNTER 2025-03-15 08:44 | Outpatient (AMB) | payer OTHER, SELFPAY ==
--- OUTSIDE RECORDS SUMMARY | 2025-03-15 08:49 | XMS_ITS | Clinical Summary ---
Author Organization [facility] Address [address] [facility] [place] [address] Care Team Providers Care Oral Surgery Physician Name Role Phone Wilbert Moreau Primary Care [...] times daily. 40 Tab 0 03/15/2016 Active Logan-3 Fatty Acids (FISH OIL) 1000 MG Cap Take 1,000 mg by mouth 3 times daily. 90 Cap 2 03/15/2016 Active Active Problems Problem Noted Date Asthma 01/16/2015 Nephrolithiasis 10/25/2014 Overview: Followed by [facility] Urology Abnormal CT scan 10/25/2014 Overview: abd CT 2013 /spleen prior granulomatous disease Back pain, chronic 10/25/2014 Abnormal chest x-ray 10/25/2014 Overview: Stable left hilar lymph nodes Hyperlipidemia 08/26/2014 Major depression 08/26/2014 Overview: Follows at [facility] Panic attacks 08/26/2014 Thyroid nodule Immunizations [...] HEPATITIS C SCREENING Completed 10/29/2014 Care Teams Oral Surgery Physician Relationship Specialty Start Date End Date Wilbert Moreau PCP - General Family Practice 04/19/16
--- OUTSIDE RECORDS SUMMARY | 2025-03-15 08:49 | XMS_ITS | Encounter Summary ---
Author Organization [facility] Address [address] [place] [address] Care Team Providers Care Metal Furniture Glazier Name Role Phone Iqra Kurtz DO Primary Care Pro vider Wilbert Kent Primary Care Provider Unavailabl e Encounter Details Date Type Department Care Team Description 03/06/2016 Orders Only Adult Medicine [address] [address] Iqra Kurtz DO Thyroid nodule (Primary Dx) [...] goiter documented in this encounter Care Teams Metal Furniture Glazier Relationship Specialty Start Date End Date Iqra Kurtz DO PCP - General Internal Medicine 08/24/14 04/18/16 Wilbert Moreau PCP - General Family Practice 04/19/16 documented as of this encounter
--- OUTSIDE RECORDS SUMMARY | 2025-03-15 08:49 | XMS_ITS ---
Author Organization [facility] Address [address] [facility] [place] [address] Care Team Providers Care Craft Artist Name Role Phone Silvino Andujar Primary Care Provider Unavailab Jose Vanegasmie Unavailable [phone] Allergies Allergen (clinical drug ingredient) Drug/Non Drug [...] Oral for 90 Days Active Polymyxin B-Trimethoprim 93237-0.1 UNIT/ML PLACE 1 DROP INTO THE EYE(S) [...] Active Encounters Encounter Location Date Provider Diagnosis [facility] [address] [address] 12/03/2024 Sandra Garcia Plan Of Treatment No Information Progress Notes * Brittaney MENDOZAOB:1965 (59 yo F)Acc No.[id number]:12/03/2024 Progress Note Patient:?Debra MENDOZA Provider:?Sandra Garcia DPM :1965???Age:59 Y???Sex:Female D ate:12/03/2024 Address:[address] [place] [address] [id number] Pcp:Silvino Andujar Subjective: * Chief Complaints: * [...] MG Tablet Oral , Taking Polymyxin B-Trimethoprim 52085-0.1 UNIT/ML Solution PLACE 1 DROP INTO THE EYE(S) EVERY 4 HOURS FOR 7 DAYS WHILE AWAKE DO NOT EXCEED 6 DOSES IN 24 HOURS Ophthalmic , Taking Ascendx Spine Steffen System w/Device Kit as directed , [...] Garcia DPM Date:?2024 Generated for Dalila ambrose/Aleida/Radha on:?03/15/2025 08:49 AM EDT
--- OUTSIDE RECORDS SUMMARY | 2025-03-15 08:49 | XMS_ITS ---
Author Organization [facility] Address [address] [place] [address] Care Team Providers Care Splitter Tender Name Role Phone Silvino Andujar Primary Care Provider Unavailab Sandra Vanegas Unavailable [phone] Encounters Encounter Location Date Provider Diagnosis [facility] [address] [place] [address] 01/07/2025 Sandra Garcia Plan Of Treatment No Information Progress Notes * Jeannine MENDOZAeDOB:1965 (59 yo F)Acc No.[id number]:01/07/2025 Progress Note Patient:Debra PRESTON Provider:?Sandra Garcia DPM :1965???Age:59 Y???Sex:Female D ate:01/07/2025 Address:[address] [place] [address] [facility] Pcp:Silvino Andujar Subjective: * Chief Complaints: * ??? * Medical History:? Objective: * Vitals:? Assessment: Plan: * Treatment: * Images: * The named appointment provid er may or may not be the originator of this progress note, and it is not deemed complete until electronically signed by the appointment provider. Sign off status: Pending * Provider:Cameron Garcia DPM Date:?2024 Generated for Dalila ambrose/Aleida/eTvismitting on:?03/15/2025 08:49 AM EDT
--- OUTSIDE RECORDS SUMMARY | 2025-03-15 08:49 | XMS_ITS | Patient Health Record ---
Author Organization [facility] Address [address] [place] [address] Care Team Providers Care Diagnostic Technician Name Role Phone Silvino Andujar Primary Care Provider Unavailab Sandra Vanegas Unavailable [phone] Allergies Allergen (clinical drug ingredient) Drug/Non Drug Allergy documented on EMR Reaction Allergy Type Onset Date Status lisinopril Lisinopril Unknown Drug Allergy Activ e Shellfish (FN) Shellfish-derived Products Unknown Drug Allergy Active Results Component Value Reference Range Notes HEMOGLOBIN A1C (GLYCOHEMOGLO BIN) Reviewed date:11/28/2023 12:49:08 [...] 3- 4 weeks 04/22/2024 Active Polymyxin B-Trimethoprim 57476-3.1 UNIT/ML PLACE 1 DROP INTO THE EYE(S) [...] Polyneuropathy due to type 2 diabetes mellitus (676895098) Type 2 diabetes mellitus with diabetic polyneuropathy (E11.42) Active confirmed Problem 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 Vital Signs Blood pressure diastolic 75 mm Hg 06/22/2024 Height 5ft6in in 06/22/2024 Blood pressure systolic 123 mm Hg 06/22/2024 Weight 196 lbs 06/22/2024 BMI 31.63 kg/m2 06/22/2024 Procedures Procedure Date Ordered Date Performed Result Body Sit e 86525,[id number]-QRA TENDON SHEATH/LIGAMENT 04/22/2024 N/A Encounters Encounter Location Date Provider Diagnosis [address] [address] 04/22/2024 Sandra Black Interstitial myositi s of left foot M60.172 ; Gastrocnemius equinus of left lower extremity M62.462 ; Pain in left foot M79.672 ; Plantar fasciitis of left foot M72.2 ; Calcaneal spur, left foot M77.32 ; Bursitis of left foot M77.52 and Type 2 diabetes mellitus with diabetic polyneuropathy E11.[address] [address] 06/22/2024 Sandra Black Gastrocnemius equinu s of left lower extremity M62.462 ; Plantar fasciitis of left foot M72.2 ; Interstitial myositis of left foot M60.172 ; Pain in left foot M79.672 ; Calcaneal spur, left foot M77.32 ; Bursitis of left foot M77.52 and Type 2 diabetes mellitus with diabetic polyneuropathy E11.[address] [address] 08/31/[address] [address] 12/03/[address] [place] [address] 01/05/2025 Sandra Garcia Assessments Encounter Date Diagnosis (ICD Code) Assessment Notes Treatment Notes Treatment Clinical Notes Section Notes 04/22/2024 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.172) 04/22/2024 Gastrocnemius equinus of left lower extremity (ICD-10 - M62.462) 06/22/2024 Plantar fasciitis of left foot (ICD-10 - M72.2) 06/22/2024 Gastrocnemius equinus of left lower extremity (ICD-10 - M62.462) 06/22/2024 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.172) 04/22/2024 Pain in left foot (ICD-10 - M79.672) 04/22/2024 Plantar fasciitis of left foot (ICD-10 - M72.2) Patient Educated with: INJECTIONTHER APY.pdf (INJECTIONTHE RAPY.pdf) 06/22/2024 Pain in left foot (ICD-10 - M79.672) 06/22/2024 Calcaneal spur, left foot (ICD-10 - M77.32) 04/22/2024 Calcaneal spur, left foot (ICD-10 - M77.32) 04/22/2024 Bursitis of left foot (ICD-10 - M77.52) 06/22/2024 Bursitis of left foot (ICD-10 - M77.52) 06/22/2024 Type 2 diabetes mellitus with diabetic polyneuropathy (ICD-10 - E11.42) 04/22/2024 Type 2 diabetes mellitus with diabetic polyneuropathy (ICD-10 - E11.42) Plan Of Treatment Pending Test Test Name Order Date ,[id number] TENDON SHEATH/LIGAMENT 0 01/02/202478160,[id number] TENDON SHEATH/LIGAMENT 0 02/13/202432140,[id number]-PRF TENDON SHEATH/LIGAMENT 0 04/22/2024 Insurance Providers Payer Name Payer Address Payer Phone Subscriber Number Group Number Insured Name Patient Relationship to Insured Coverage Start Date Coverage End Date [facility] [employer] Claims [address] [place] [id number] Debra Mandel Self - patient is the insured Medical (General) History Medical History History ICD Code Anxiety Arthritis asthma Back,Hip,and Knee pain CAD (Cholesterol) covid-19 Depression Diabetic Diverticulosis Fibromyalgia Headaches/Migraines High blood pressure Stomach ulcer thyroid Chicken pox Surgical History Surgery Date(Month/Year) Hospitalization History Reason Date(Month/Year) [facility]- Stomach pain 06/18/24
--- OUTSIDE RECORDS SUMMARY | 2025-03-15 08:49 | XMS_ITS | Encounter Summary ---
Author Organization [facility] Address [address] [facility] [address] Care Team Providers Care Bookstore Clerk Name Role Phone Wilbert Moreau Primary Care Provider Unavailabl e Iqra Kurtz DO Primary Care Pro vider Unavailable Wilbert Moreau Primary Care Provider Unavailabl e Encounter Details Date Type Department Care Team Description 12/18/2013 Civil Engineering Director Report Medical Records [address] [place] [address] Wilbert Moreau Social History Tobacco Use Types Packs/Day Years Used Date Smoking Tobacco: Never Assessed Sex Assigned at Date Recorded Not on file documented as of this encounter Plan of Treatment Not on file documented as of this encounter Visit Diagnoses Not on filedocumented in this encounter Care Teams Bookstore Clerk Relationship Specialty Start Date End Date Wilbert Moreua PCP - General Family Practice 03/11/12 08/23/14 Iqra Kurtz DO PCP - General Internal Medicine 08/24/14 04/18/16 Wilbert Moreau PCP - General Family Practice 04/19/16 documented as of this encounter
--- OUTSIDE RECORDS SUMMARY | 2025-03-15 08:49 | XMS_ITS | Encounter Summary ---
Author Organization [facility] Address [address] [place] [address] Care Team Providers Care Private Security Guard Name Role Phone Iqra Kurtz DO Primary Care Pro vider Unavailable Wilbert Moreau Primary Care Provider Unavailabl e Encounter Details Date Type Department Care Team Description 04/02/2016 Hospital Medical Records [address] [place] [address] Jamie Davis MD [address] [place] [address] Social History Tobacco Use Types Packs/Day Years [...] on filedocumented in this encounter Care Teams Private Security Guard Relationship Specialty Start Date End Date Iqra Kurtz DO PCP - General Internal Medicine 08/24/14 04/18/16 Wilbert Moreau PCP - General Family Practice 04/19/16 documented as of this encounter
--- OUTSIDE RECORDS SUMMARY | 2025-03-15 08:50 | XMS_ITS ---
Author Organization [facility] Address [address] [place] [address] Care Team Providers Care Generation Manager Name Role Phone Silvino Andujar Primary Care Provider Unavailab Sandra Vanegas Unavailable [phone] REASON FOR VISIT cx 01/07/25 appt Encounters Encounter Location Date Provider Diagnosis [facility] [address] [place] [address] 01/05/2025 Sandra Garcia Plan Of Treatment No Information Progress Notes * Brittaney MENDOZAOB:1965 (59 yo F)Acc No.[id number]:01/05/2025 Patient:?Debra MENDOZA :1965???Age:59 Y???Sex:Female Address:[address] [place] [address] [place] [address] * true * Date:? Generated for Abii arnol/Aleida/eTransmitting on:?03/15/2025 08:49 AM EDT
--- OUTSIDE RECORDS SUMMARY | 2025-03-15 08:50 | XMS_ITS | Clinical Summary ---
Author Organization [facility] it Address [address] [place] [address] Care Team Providers Care Poultry Process Worker Name Role Phone Wilbert Moreau DO Primary Care Provider [phone] Surgical History Surgery Date Site/Laterality Comments TONSILLECTOMY PROCEDURE: HISTORICAL TONSILLECTOMY HYSTERECTOMY PROCEDURE: HISTORICAL HYSTERECTOMY OOPHORECTOMY Left PROCEDURE: HISTORICAL OOPHORECTOMY BREAST REDUCTION PROCEDURE: [place] BREAST REDUCTION KIDNEY STONE SURGERY PROCEDURE: [place] NEPHROLITHOTOMY REMOVAL CALCULUS OTHER SURGICAL HISTORY PROCEDURE: [place] HEMORRHOIDECTOMY INT & XTRNL 2/> COLUMN/DIDIER SECTION PROCEDURE: HISTORICAL DELIVERY LAPAROSCOPIC GASTRIC BANDING PROCEDURE: LAP ADJUSTABLE GASTRIC BAND; COMMENT: and then removed on 11/25/15 BELT ABDOMINOPLASTY PROCEDURE: HISTORICAL TUMMY TUCK OTHER SURGICAL HISTORY 01/12/14 PROCEDURE: MAMMOGRAM OTHER SURGICAL HISTORY PROCEDURE: [place] HEMORRHOIDECTOMY INTERNAL RUBBER BAND LIGATIONS Medical History Medical History Date Comments Nephrolithiasis 10/25/2014 DX:Nephrolithias is; COMMENT: Followed by [facility] Urolog Back pain, chronic 10/25/2014 DX:Back pain, [...] Documents on File Type Date Recorded Patient Production Metal Sprayer Expl anation Health Care Decision (hx) 12/01/2018 AD COREAS DIRECTIVE Health Care Decision (hx) 12/01/2018 AD COREAS DIRECTIVE Health Care Decision (hx) 12/01/2018 AD COREAS DIRECTIVE Care Teams Poultry Process Worker Relationship Specialty Start Date End Date Wilbert Moreau DO [address] [address] PCP - General 04/19/16
--- OUTSIDE RECORDS SUMMARY | 2025-03-15 08:50 | XMS_ITS | Encounter Summary ---
Author Organization [facility] Address [address] [place] [address] Care Team Providers Care Minute Clerk For Basic Traffic Name Role Phone Wilbert Moreau Primary Care Provider Unavailabl e Iqra Kurtz DO Primary Care Pro vider Unavailable Wilbert Moreau Primary Care Provider Unavailabl e Encounter Details Date Type Department Care Team Description 08/18/2013 Certified Hand Therapist Report Medical Records [address] [place] [address] Richie Cardona Social History Tobacco Use Types Packs/Day Years Used Date Smoking Tobacco: Never Assessed Sex Assigned at Date Recorded Not on file documented as of this encounter Plan of Treatment Not on file documented as of this encounter Visit Diagnoses Not on filedocumented in this encounter Care Teams Minute Clerk For Basic Traffic Relationship Specialty Start Date End Date Wilbert Moreau PCP - General Family Practice 03/11/12 08/23/14 Iqra Kurtz DO PCP - General Internal Medicine 08/24/14 04/18/16 Wilbert Moreau PCP - General Family Practice 04/19/16 documented as of this encounter
--- OUTSIDE RECORDS SUMMARY | 2025-03-15 08:50 | XMS_ITS | Data Portability ---
Author Organization [employer] [facility] [employer] Address [address] [place] [address] Care Team Providers Care Jet Mechanic Name Role Phone HIM CCA OTHER ANDRAE LEARY Primary Care Provider Assessment No assessment recorded. Plan of Treatment Reminders Order Date Submit Date Provider Last Modified By Organization Details Last Modified Time Details Appointments None recorded. Lab None recorded. Referral None recorded. Procedures None recorded. Surgeries None recorded. Imaging None recorded. Medication Orders lactated Ringers intravenous solution 2024 025 [id number], [address] [place], [address], 18:02:05 prednisone 20 mg tablet 2024 025 [id number], [address] [place], [address], 18:38:16 prednisone 20 mg tablet 2024 025 [facility], [address] [place] [address], [phone], 18:42:21 Patient TargetsNo targets recorded. Patient InstructionsNo [...] Updated DateTime 5 120 /min 167.64 cm 72635.2 16 g 102.3 [degF] 18 /min 99 [...] SNOMED-CT Code Diagnosis ICD10 Code Diagnosis Note 92755 LINDA GEORGE MD Main - instED [address] [place] [phone] 01/01/2025 17:44:31 01/01/2025 21:09:04 Influenza-like illness [id number] B34.9 Evaluation in the field was performed by my tape cutting machine operator colleague, as noted above, I provided real-time [...] course. First dose was given by the tape cutting machine operator. -Pt advised to avoid irritants like smoke, [...] Recorded Advance Directives Directive None Recorded Payers Insurance Date Sequence Insurance Name Policy Number Policy Anna Covered Member ID Anna Member ID Guarantor Name 01/01/2025 1 [facility] - DOS ON OR AFTER 2023 - DUAL ELIGIBLE - DETENTION OPTIONS AND ONE CARE (MEDICARE REPLACEMENT/ADV ANTAGE - HMO) Debra Mandel [id number] Debra Mandel Notes Date Note Type Note [...] HyperlipidemiaPMH Reviewed at 01/01/2025:55Allergies Reviewed at 01/01/2025:55Comments: Modeling Manager verified the name//address and phone number.Pt has [...] s/s and seek emergency treatment if needed Instrument Technologist Organization Information for Juan White Cely Luevano Legal Name: [employer] Address: [address] [place] [address], Supervisor Particleboard: Jose C Hylton MD CLIA No.: [id number] Instrument Technologist POC Test Results from Juan White ANASTASIA Rapid influenza antigen (17:57:03) Flu: - Rapid COVID antigen (17:57:04) COVID: - ...................... ...................... ...................... ...................... ...................... ...................... ......... Instrument Technologist Note From Juan White: [facility] visit for female pt presenting with body [...] [facility]bul[facility]. [facility] with [facility] Dr. George who ordered 1 liter IV normal saline given on scene. [facility] also ordered 40 mg of prednisone. Pt given tablets but she said she was going to wait until she ate to taken them. Reviewed red flags for ED. Reviewed dosage guidelines for tylenol. Pt education provided. [facility] Medication Orders: lactated Ringers intravenous solution: Administered prednisone 20 mg tablet: Administered ...................... ...................... ...................... ...................... ...................... ...................... ......... [facility] Consulted: Linda George ...................... ...................... ...................... ...................... ...................... ...................... ......... Disposition: Fulfilled LINDA GEORGE MD [address] [place] [address],[address], [place], [address], [employer], [facility] 01/01/2025 20:53:49 OBGyn Episode No OBEpisode recorded.
--- NOTE | 2025-03-15 09:10 | MHC.OFFWIV ---
Intake Vital Signs 03/15/25 09:13 Weight 193 lb BP 118/76 Blood Pressure Location Rt brachial Position Sitting Pulse 64 Pulse Source Pulse Oximeter Temp 98.8 F Temp Source Oral Pulse Oximetry (%) 98 Oxygen Delivery Method Room Air Intake Visit Reasons: EP, lower back pain, tena when urinat Intake Note: Patient here for lower back pain, lower abdominal pain and burning on urination. Patient Tobacco Use Status: Former Tobacco user Allergies seafood Allergy (Unknown, Verified 03/15/25 09:19) Unknown dulaglutide [From Trulicity] Adverse Reaction (Intermediate, Verified 03/15/25 09:19) Diarrhea metformin Adverse Reaction (Intermediate, Verified 03/15/25 09:19) GAstric upset lisinopril Adverse Reaction (Unknown, Verified 03/15/25 09:19) cough Do you need a note to return to daycare/school/sports/work: No HPI HPI Comments History of Present Illness Details History of Present Illness - The patient is a 59-year-old female with a past med hx of nephrolithiasis, T2DM, HTN, HLD, gastritis, anemia, THOMAS, GERD, MDD, EMIL, and asthma resenting with low back and lower abdominal pain. - She reports low back pain over the past few days, extending to the lower abdomen with a burning sensation during urination. - Blood is present in her urine with no reported fever. - She has a history of kidney stones, often requiring surgical removal - Previously seen by urologist, Dr. Roberts, last visit occurred in 2020 for a prior stone size of [address] scan. Physical Exam General: Cooperative, healthy appearing, comfortable, no acute distress and well developed Orientation: Patient oriented x3 Limitations: No limitations Head: Normal to inspection Ears: Hearing grossly normal bilaterally Nose: Normal External nose present Face and sinus: Normal facial exam Eyes: Appearance normal, both eyes and all related structures Neck: Normal visual inspection and Yes full ROM Respiratory: Normal respiratory effort and able to speak in complete sentences. Back/spine: negative CVA bilaterally Skin: No rashes or lesions noted Neuro: Patient oriented x3 Extremities: Normal to inspection [facility] Medical History Calcified granuloma of lung History of panic attacks Asthma Anal fissure Anal pain Pulmonary nodules Hx of renal calculi Flu-like symptoms Spondylosis of lumbar spine Fibromyalgia Dyslipidemia Obesity, Class I, BMI 30-34.9 Nephrolithiasis Recurrent Clostridioides difficile infection Hx of thyroid nodule Back pain Arthritis Depression Anxiety Type 2 diabetes mellitus HLD (hyperlipidemia) GERD (gastroesophageal reflux disease) HTN (hypertension) Surgical History History of esophagogastroduodenoscopy (EGD) Hx of cosmetic surgery Hx of tonsillectomy Hx of section Hx of lithotripsy Hx of endoscopy Hx of colonoscopy (~11/2016) S/P anal fissurectomy H/O hemorrhoidectomy Hx laparoscopic cholecystectomy S/P left oophorectomy H/O partial thyroidectomy (~2016) History of removal of laparoscopic gastric banding device (~2015) History of abdominoplasty History of colonoscopy History of laparoscopic adjustable gastric banding (~2010) History of bilateral breast reduction surgery (~2008) History of hysterectomy Family History Father Diabetes Hypertension Depression Mother Lung cancer Diabetes Mental health disorder Brother HIV (human immunodeficiency virus infection) Depression Diabetes Sister Hypertension Diabetes Mental health disorder Daughter Mental health disorder Son Mental health disorder Social History Household Members: Children Housing: House Do you presently have visiting nurse or other home services: Yes Alcohol intake: current Alcohol intake frequency: holidays/special occasions only Patient Tobacco Use Status: Former Tobacco user e-Cigarette/Vaping Use: Never Used Second Hand Smoke Exposure: No Substance Use Type: Marijuana Advance Directives Date on File: 02/06/24 service: No Current occupational status: disabled Cognitive needs: No Hearing needs: No Vision needs: Yes Review of Systems Const All systems reviewed & are unremarkable except as noted in HPI and below Physical Exam Vital Signs: Last Vital Signs Temp 98.8 F 03/15/25 09:13 Pulse 64 03/15/25 09:13 BP 118/76 03/15/25 09:13 Pulse Ox 98 03/15/25 09:13 Oxygen Delivery Method Room Air 03/15/25 09:13 Assessment & Plan Assessment & Plan (1) Low back pain: Code(s): M54.50 - Low back pain, unspecified Qualifiers: Chronicity: acute Back pain laterality: bilateral Sciatica presence: without sciatica Qualified Code(s): M54.50 - Low back pain, unspecified Plan: UA neg leuks, neg nitrites, 2+ blood. The patient's symptoms of low back and lower abdominal pain, alongside hematuria, likely suggest nephrolithiasis given her history. Her kidney stone history, including frequent surgical interventions, underlines the necessity for further imaging, to evaluate stone size and position to prevent obstruction. Efforts will be made to consult with her urologist, Dr. Roberts, to possibly streamline management without an ER visit. Emergency medical evaluation at the ED is necessary if the urologist consultation cannot be expedited. Patient understands and agrees with plan. Will send my note to Dr Roberts's office to expedite care, if possible. Patient was informed and verbally consented to the use of an ambient scribe for clinic note documentation during this visit. Coding Level of Care Code Est Pt Level 4 (04986) Diagnoses Acute bilateral low back pain without sciatica M54.50 Chronicity: acute Back pain laterality: bilateral Sciatica presence: without sciatica
[2025-03-15 09:13] VITALS: BP 118/76; PULSE 64; TEMP 37.1; O2SAT 98
== END 2025-03-15 09:32 | disposition home or self-care (01) ==
PROVIDERS: PCP Physician Assistant; Visit Provider Physician Assistant
DX: M54.50 Low back pain, unspecified (principal); Z13.9 Encounter for screening, unspecified

== ENCOUNTER → 2025-03-15 08:44 | Outpatient (BNVA) | payer OTHER, SELFPAY | PROVIDERS: PCP Physician Assistant; Visit Provider Physician Assistant | DX: M54.50 Low back pain, unspecified (principal) | CPT/HCPCS: 81003; 99212 ==

== ENCOUNTER 2025-03-15 10:40 | Emergency (ER) | payer OTHER, SELFPAY ==
--- NOTE | ~2025-03-15 | CT_ITS ---
EXAMINATION: CT ABDOMEN PELVIS WITHOUT IV CONTRAST HISTORY: flank pain, hx of stones COMPARISON: Comparison is made with the prior examination dated 05/17/2024. TECHNIQUE: CT scan of the abdomen and pelvis was performed without contrast using standard departmental protocol. Coronal and sagittal reformatted images were generated and reviewed. Oral contrast material was not administered per department protocol. This CT exam was performed with one or more of the following dose reduction techniques: automated exposure control, adjustment of the mA and/or kV according to patient size, use of iterative reconstruction technique. DLP: 578 mGy-cm FINDINGS: LOWER CHEST: The visualized lung bases are clear. There is no pleural effusion. CARDIOVASCULATURE: The heart is normal in size. There is no pericardial effusion. LIVER: The liver is normal in size and contour. There are punctate calcifications in the liver consistent with old granulomatous disease. GALLBLADDER / BILE DUCTS: The gallbladder is surgically absent. There is no intra or extrahepatic biliary ductal dilatation. SPLEEN: The spleen is normal in size. There are splenic calcifications, consistent with old granulomatous disease. PANCREAS: The pancreas has an unremarkable unenhanced appearance. ADRENAL GLANDS: Unremarkable. KIDNEYS/RETROPERITONEUM: No renal or ureteral calculi are identified. There is no hydronephrosis or hydroureter. There is a probable 1.5 cm cyst at the lower pole of the right kidney. LYMPH NODES: No retroperitoneal lymphadenopathy is identified in the abdomen or pelvis. VASCULATURE: The abdominal aorta is normal in caliber. MESENTERY/PERITONEUM: No free fluid. No masses. There is no free intraperitoneal gas. STOMACH: The stomach is collapsed, limiting evaluation. SMALL BOWEL: The small bowel is normal in caliber. COLON: The colon is unremarkable. APPENDIX: Normal. URINARY BLADDER/PELVIC ORGANS: The urinary bladder is unremarkable. The patient is status post hysterectomy. Again seen is a 1.7 cm soft tissue density at the anterior aspect of the vaginal cuff. BONES / SOFT TISSUES: There is degenerative disc disease of the spine. CT/CT abdomen pelvis wo IV con IMPRESSION: 1. No evidence of nephrolithiasis or ureteral obstruction. 2. Hepatic and splenic calcifications, consistent with old granulomatous disease. 3. Stable 1.7 cm soft tissue density anterior aspect of the vaginal cuff. Electronically signed by: Vazquez Parada MD 03/15/2025 01:50 PM EDT RP
[2025-03-15 11:10] VITALS: BP 126/69; PULSE 69; RESP 16; TEMP 36.8; O2SAT 100; BMI 31.8
[2025-03-15 11:31] LABS: MANUAL DIFF FLAG NO
[2025-03-15 11:33] LABS: Basophils Percent Auto 0.9 % (0-2); Eosinophils Absolute Auto 0.1 X10*3/uL (0.0-0.4); Hematocrit 40.1 % (37.0-47.0); Hemoglobin 13.7 g/dl (12.0-16.0); Imm Gran Abs Auto 0.01 X10*3/uL (0.00-0.03); Imm Gran Pct Auto 0.2 % (0.0-0.4); Lymphocytes Absolute Auto 1.7 X10*3/uL (1.2-4.9); Lymphocytes Percent Auto 37.1 % (20-40); Mean Corpuscular HGB Conc 34.2 g/dl (31.0-35.0); Mean Corpuscular Hemoglobin 29.1 pg (27.0-33.0); Mean Corpuscular Volume 85.3 fL (80.0-98.0); Monocytes Absolute Auto 0.4 X10*3/uL (0.1-1.2); Monocytes Percent Auto 7.8 % (2-11); Neutrophils Absolute Auto 2.4 x10*3/uL (2.0-8.3); Platelet Count 235 X10*3/uL (160-400); Red Cell Distribution Width 12.3 % (11.0-16.0); White Blood Count 4.6 X10*3/uL (4.8-10.8)
[2025-03-15 11:53] LABS: Alanine Aminotransferase 29 U/L (0-31); Albumin Level 4.5 g/dL (3.5-5.0); Alkaline Phosphatase 63 U/L (39-117); Anion Gap 11 (12-20); Aspartate Amino Transferase 19 U/L (5-31); Bilirubin Total 0.6 mg/dL (0.0-1.0); Blood Urea Nitrogen 16 mg/dL (9-16); Calcium 9.2 mg/dL (8.4-10.2); Carbon Dioxide 26 mmol/L (22-29); Chloride 107 mmol/L (96-108); Creatinine Clr Calc Pharmacy 92.1; Estimated Glomerular Filt Rate > 60; Glucose Random 121 mg/dL (60-115); Sodium 140 mmol/L (135-145); Total Protein 7.2 g/dL (6.5-8.0)
[2025-03-15 11:55] LABS: Appearance Urine Clear; Color Urine Yellow; Glucose Urine UA Negative (Negative); Leukocyte Esterase Urine Negative (Negative); Nitrite Urine Negative (Negative); PH 6.5 (5.0-9.0); Specific Gravity - Urine 1.025 (1.005-1.025); Urine Blood Negative (Negative); Urine Ketones Negative (Negative); Urine Protein Negative (Neg-Trace)
--- OUTSIDE RECORDS SUMMARY | 2025-03-15 12:06 | XMS_ITS | Clinical Summary ---
Author Organization [employer] Address [address] [facility] [address] [place] [address] Care Team Providers Care Poke In Name Role Phone Unavailable Primary Care Provider [...] 5000 Plus) 1.1 % cream Dental for 21 Acti ve predniSONE (Deltasone) 10 MG tablet 11/09/19 25 Active oxyCODONE-acetami nophen (Percocet) 5-325 MG tabletIndications :History of third molar tooth extraction, unspecified edentulism class Take 1 tablet by mouth every 6 (six) hours if needed for severe pain for up to 10 doses. 10 tablet 01/23/20 25 Active Active Problems Problem Noted Date Diagnosed Date Class 1 obesity 12/17/2024 Thyroid nodule 12/17/2024 Asthma 01/16/2015 Abnormal chest x-ray 10/25/2014 Overview (12/17/2024): Stable left hilar lymph nodes Abnormal CT scan 10/25/2014 Overview (12/17/2024): abd CT 2013 /spleen prior granulomatous disease Back pain, chronic 10/25/2014 Nephrolithiasis 10/25/2014 Overview (12/17/2024): Followed by [facility] Hyperlipidemia 08/26/2014 Major depression 08/26/2014 Overview (12/17/2024): Follows at [facility] Panic attacks 08/26/2014 Encounters Date Type Department Care Team Description 03/10/2025 10:45 AM EDT Office Visit [facility] [address] [place] [address] Kwesi Bragg, JODIE 02/05/2025 2:00 PM EDT Office Visit [facility] [address] [place] [address] LillyWilsonia, DDS Myalgia of mastication muscle (Primary Dx) 01/27/2025 2:30 PM EDT Office Visit [facility] [address] [place] [address] Kwesi Bragg DMD 01/22/2025 9:30 AM EDT Office Visit [facility] [address] [place] [address] AttRebecca tate, DDS History of third molar tooth extraction, unspecified edentulism class (Primary Dx) 01/19/2025 11:30 AM EDT Office Visit [facility] [address] [place] [address] LillyDenaPattie, DDS 01/13/2025 8:00 AM EDT Office Visit [facility] [address] [place] [address] Lilly Pattie, DDS History of third molar tooth extraction, unspecified edentulism class (Primary Dx) 12/17/2024 2:30 PM EST Office Visit [facility] [address] [place] [address] LillyWilsonia, DDS from Last 3 Months Social History [...] Mass Index - - Plan of Treatment Health Maintenance Due Date [...] Procedure Name Priority Date/Time Associated Diagnosis Comments RE-EVAL - POST-OP OFFICE VISIT Routine 03/10/2025 10:45 AM EDT NO CHARGE PROCEDURE Routine 02/05/2025 2 :00 [...] Most Recently Relevant to Health Maintenance Insurance [facility]
--- OUTSIDE RECORDS SUMMARY | 2025-03-15 12:06 | XMS_ITS | Encounter Summary ---
Author Organization [employer] Address [address] [facility] [address] [place] [address] Care Team Providers Care Soloist Dancer Name Role Phone Unavailable Primary Care Provider Unavailabl e Reason for Visit * Reason Comments Consult Encounter Details Date Type Department Care Team ([facility] st Contact Info) Description 03/10/2025 10:45 AM EDT Office Visit [facility] [address] [place] [address] Kwesi Bragg DMD [address] [place] [address] Social History Tobacco Use Types Packs/Day Years Used Date Smoking Tobacco: Never Assessed Comments Unknown Sex and Gender Information Value Date Recorded Sex Assigned at Female 08/27/2022 10:21 AM EDT Legal Sex Female 10:21 AM EDT Gender Identity Female 12/17/2024 10:14 AM EST Sexual Orientation Straight 12/17/2024 10 :14 AM EST documented as of this encounter Progress Notes * Kwesi Bragg DMD - 03/10/2025 10:45 AM EDT Pt s/p extraction of teeth 1, 16, 17, 32 in December PE: minimal pain, no swelling or discharge at site A: pt healing well P: RTO for dental care as scheduled documented in this encounter Plan of Treatment Scheduled Orders Name Type Priority Associated Diagnoses Orde r Schedule PROPHYLAXIS - ADULT Dental Routine 1 Occ urrences starting 03/10/2025 documented as of this encounter Procedures Procedure Name Priority Date/Time Associated Diagnosis Comments RE-EVAL - POST-OP OFFICE VISIT Routine 03/10/2025 10:45 AM EDT documented in this encounter Visit Diagnoses Not on filedocumented in this encounter
--- OUTSIDE RECORDS SUMMARY | 2025-03-15 12:06 | XMS_ITS | Encounter Summary ---
Author Organization [facility] [employer] [facility] Address [address] [facility] [address] [place] [address] Care Team Providers Care Director Of Agronomy Name Role Phone Unavailable Primary Care Provider Unavailabl e Encounter Details Date Type Department Care Team (Latest Contact Info) Description 01/13/2019 Abstract [facility] CONVERSIONS Dental, Provider, DDS Social History Tobacco [...]
--- OUTSIDE RECORDS SUMMARY | 2025-03-15 12:07 | XMS_ITS | Clinical Summary ---
Author Organization [facility] [address] [place] [address] Care Team Providers Care Grill Associate Name Role Phone Wilbert Moreau DO Primary Care Provider [phone] Surgical History Surgery Date Site/Laterality Comments TONSILLECTOMY PROCEDURE: HISTORICAL TONSILLECTOMY HYSTERECTOMY PROCEDURE: HISTORICAL HYSTERECTOMY OOPHORECTOMY Left PROCEDURE: HISTORICAL OOPHORECTOMY BREAST REDUCTION PROCEDURE: NC BREAST REDUCTION KIDNEY STONE SURGERY PROCEDURE: NC NEPHROLITHOTOMY REMOVAL CALCULUS OTHER SURGICAL HISTORY PROCEDURE: NC HEMORRHOIDECTOMY INT & XTRNL 2/> COLUMN/DIDIER SECTION PROCEDURE: HISTORICAL DELIVERY LAPAROSCOPIC GASTRIC BANDING PROCEDURE: LAP ADJUSTABLE GASTRIC BAND; COMMENT: and then removed on 11/25/15 BELT ABDOMINOPLASTY PROCEDURE: HISTORICAL TUMMY TUCK OTHER SURGICAL HISTORY 01/12/14 PROCEDURE: MAMMOGRAM OTHER SURGICAL HISTORY PROCEDURE: NC HEMORRHOIDECTOMY INTERNAL RUBBER BAND LIGATIONS Medical History [...] Documents on File Type Date Recorded Patient Enterer Expl anation Health Care Decision (hx) 12/01/2018 AD COREAS DIRECTIVE Health Care Decision (hx) 12/01/2018 AD COREAS DIRECTIVE Health Care Decision (hx) 12/01/2018 AD COREAS DIRECTIVE Care Teams Grill Associate Relationship Specialty Start Date End Date Wilbert Moreau DO [address] [address] PCP - General 04/19/16
--- NOTE | 2025-03-15 12:49 | ED_ITS ---
HPI - General Adult General Chief complaint: Abdominal Pain Stated complaint: blood in urine back pain Time Seen by Provider: 03/15/25 15:24 Source: patient Mode of arrival: ambulatory Limitations: no limitations History of Present Illness ED Provider: ALEX ELI PA-C HPI narrative: 59 year old female with pmhx significant for DM, HLD, HTN, GERD, anxiety, depression, fibromyalgia, asthma presents to the ED today for evaluation of lumbar back pain x3 days. Denies trauma/ falls/ injury. Reports associated urinary output and dysuria along with rectal pressure. Reports normal BMs. She was evaluated at . She was told she had microscopic blood in her urine. She was then sent here to r/o renal stone. Reports hx of nephrolithiasis. Denies fever, chills, cp, sob, flank pain, abdominal pain, vaginal discharge or bleeding. Denies IVDU hx. Denies hx spinal surgery. Denies numbness/tingling/weakness of LEs, saddle anesthesia, bowel/bladder incontinence or retention. Related Data Home Medications ?Medication ?Instructions ?Recorded ?Confirmed citalopram 20 mg tablet 20 mg PO DAILY@0900 08/19/20 02/10/25 clonazepam 1 mg tablet 1 mg PO DAILY@0900 Anxiety 12/13/20 02/10/25 zolpidem 10 mg tablet 10 mg PO BEDTIME 04/04/22 02/10/25 clonazepam 2 mg tablet 2 mg PO BEDTIME 01/30/24 02/10/25 Previous Rx's ?Medication ?Instructions ?Recorded blood-glucose meter (FreeStyle #1 ea 11/13/23 Precision Steffen Meter) acetaminophen 650 mg 650 mg PO Q12H 30 days #60 tabs 05/22/24 tablet,extended release (Tylenol Arthritis Pain) atorvastatin 40 mg tablet 40 mg PO BEDTIME #90 tabs 07/16/24 blood sugar diagnostic (FreeStyle #50 ea 07/16/24 Precision Steffen Strips) cetirizine 10 mg tablet 10 mg PO DAILY PRN allergy 07/16/24 symptoms 90 days #90 tabs fenofibrate nanocrystallized 48 mg 48 mg PO DAILY #90 tabs 07/16/24 tablet pantoprazole 40 mg tablet,delayed 40 mg PO BID 90 days #180 tabs 07/16/24 release pioglitazone 15 mg tablet 15 mg PO DAILY 30 days #30 tabs 09/18/24 semaglutide 1 mg/dose (4 mg/3 mL) 1 mg (0.75 mL) subcut QWEEK 4 10/14/24 subcutaneous pen injector (Ozempic) weeks #3 mL albuterol sulfate 90 mcg/actuation 2 puff inhalation QID 30 days #8.5 11/04/24 aerosol inhaler grams fluticasone propionate 115 2 puff inhalation Q12H 30 days #12 11/04/24 mcg-salmeterol 21 mcg/actuation grams HFA inhaler (Advair HFA) albuterol sulfate 2.5 mg/3 mL 2.5 mg (3 mL) inhalation Q6H PRN 11/09/24 (0.083 %) solution for nebulization shortness of breath or wheezing 30 days #180 mL gabapentin 600 mg tablet 600 mg PO BID 30 days #60 tabs 11/09/24 polyethylene glycol 3350 17 gram 17 g PO DAILY Constipation 30 days 11/09/24 oral powder packet (Miralax) #30 ea tirzepatide 5 mg/0.5 mL 5 mg (0.5 mL) subcut QWEEK 4 weeks 12/28/24 subcutaneous pen injector #2 mL (Mounjaro) cholecalciferol (vitamin D3) 25 25 mcg PO DAILY 90 days #90 caps 12/30/24 mcg (1,000 unit) capsule sucralfate 1 gram tablet 1 g PO QID #112 tabs 12/30/24 telmisartan 20 mg tablet (Micardis) 20 mg PO DAILY@0900 #90 tabs 12/30/24 tirzepatide 7.5 mg/0.5 mL 7.5 mg (0.5 mL) subcut QWEEK 4 01/25/25 subcutaneous pen injector weeks #2 mL (Mounjaro) prednisone 10 mg tablet 10 mg PO DIRECTED 9 days #18 02/10/25 tabs tramadol 50 mg tablet 50 mg PO BID Pain 7 days #14 tabs 02/10/25 tramadol 50 mg tablet 50 mg PO Q8H PRN pain (scale score 03/15/25 4-6) #7 tabs Allergies Allergy/AdvReac Type Severity Reaction Status Date / Time seafood Allergy Unknown Unknown Verified 03/15/25 11:12 [facility] AdvReac Intermediate Diarrhea Verified 03/15/25 11:12 metformin AdvReac Intermediate GAstric Verified 03/15/25 11:12 upset lisinopril AdvReac Unknown cough Verified 03/15/25 11:12 Review of Systems 2 Review of Systems: Yes all other systems are reviewed and are negative [facility] Past Medical History Attestation statement: The following information was validated with the patient. Source: old records reviewed and nursing notes reviewed Medical History Calcified granuloma of lung History of panic attacks Asthma Anal fissure Anal pain Pulmonary nodules Hx of renal calculi Flu-like symptoms Spondylosis of lumbar spine Fibromyalgia Dyslipidemia Obesity, Class I, BMI 30-34.9 Nephrolithiasis Recurrent Clostridioides difficile infection Hx of thyroid nodule Back pain Arthritis Depression Anxiety Type 2 diabetes mellitus HLD (hyperlipidemia) GERD (gastroesophageal reflux disease) HTN (hypertension) Surgical History History of esophagogastroduodenoscopy (EGD) Hx of cosmetic surgery Hx of tonsillectomy Hx of section Hx of lithotripsy Hx of endoscopy Hx of colonoscopy (~11/2016) S/P anal fissurectomy H/O hemorrhoidectomy Hx laparoscopic cholecystectomy S/P left oophorectomy H/O partial thyroidectomy (~2016) History of removal of laparoscopic gastric banding device (~2015) History of abdominoplasty History of colonoscopy History of laparoscopic adjustable gastric banding (~2010) History of bilateral breast reduction surgery (~2008) History of hysterectomy Family History Family History Father Diabetes Hypertension Depression Mother Lung cancer Diabetes Mental health disorder Brother HIV (human immunodeficiency virus infection) Depression Diabetes Sister Hypertension Diabetes Mental health disorder Daughter Mental health disorder Son Mental health disorder Social History Social History Household Members: Children Housing: House Do you presently have visiting nurse or other home services: Yes Alcohol intake: current Alcohol intake frequency: a few times a month Patient Tobacco Use Status: Former Tobacco user e-Cigarette/Vaping Use: Never Used Second Hand Smoke Exposure: No Substance Use Type: Marijuana Advance Directives Date on File: 02/06/24 service: No Current occupational status: disabled Cognitive needs: No Hearing needs: No Vision needs: Yes Physical Exam ED Vital Signs: Vital Signs - 24 hr 03/15/25 11:10 03/15/25 15:21 Temperature 98.3 F Pulse Rate 69 73 Respiratory Rate 16 18 Blood Pressure 126/69 106/48 L Pulse Oximetry 100 95 Oxygen Delivery Method Room Air Room Air BMI result Body Mass Index 31.8 vital signs stable, afebrile General: Well appearing, in no acute distress. Skin: Warm, dry, intact. No rashes or lesions. Head: Normocephalic, atraumatic. EENT: Hearing is intact b/l. Conjunctiva clear. Sclera is anicteric. PERRLA. EOM intact. Moist mucous membranes.? Cardiac: Chest wall symmetric. RRR Lungs: Normal respiratory effort without accessory muscle use. CTA bilaterally Abdomen: soft, non-tender, non-distended. No rebound tenderness or guarding. Positive BS x4. Rectal exam performed with Kelsey POWELL student present in room with patient's consent. Normal rectal sphincter tone. No external masses or lesions. No palpable stool in rectal vault. Back: No midline spinous or paraspinal tenderness. No step off deformity. Ext: Upper and lower extremities atraumatic, without tenderness, deformity, swelling or erythema Neuro: AOx3. Normal speech. Strength 5/5 intact throughout. No saddle anesthesia. Sensation intact to light touch. NV intact distally. Ambulating with steady gait. Course Course Course Narrative: RME performed by Vidhi Goetz PA-C. Patient is a 59 year old assigned female at presenting to the emergency department with low back and low abdominal pain. Patient states she has had less urine output and is painful to urinate. Detailed physical exam and review of systems are deferred to the axle turner. Labs and imaging ordered. Patient placed back in the waiting room pending room availability and results. Reevaluation(s) Reevaluation #1: CBC without leukocytosis. No left shift. h&h stable. Chemistry without acute electrolyte abnormality requiring intervention. No ministerio. Liver function wnl. Urine without infection or blood. CT a/p without evidence of neprholithiasis or obstructing stone.? Shows degenerative changes w/in the spine which may be contributing to patient?s discomfort. i have also reviewed UA obtained at walk- in clinic today - negative for infection/blood. > medicated w/ Motrin + Tylenol with improvement.? > tolerating PO > work up unremarkable. Discussed all results w/ patient. Will send home w/ pain meds. Advised outpatient follow up.?Patient has remained stable throughout ED visit today. Discussed worrisome signs and symptoms and when to return to the ED. All questions answered at this time. Patient is agreeable with disposition and stable for discharge. Medications Administered Discontinued Medications Generic Name Dose Route Start Last Admin Trade Name Monica PRN Reason Stop Dose Admin Acetaminophen 650 mg 03/15/25 14:24 03/15/25 15:24 Acetaminophen 325 Mg Tablet PO 03/15/25 14:25 650 mg ONCE ONE Administration Ibuprofen 600 mg 03/15/25 14:24 03/15/25 15:24 Ibuprofen 600 Mg Tablet PO 03/15/25 14:25 600 mg ONCE ONE Administration Medical Decision Making Medical Decision Making [facility] Narrative: 59 year old female with pmhx significant for DM, HLD, HTN, GERD, anxiety, depression, fibromyalgia, asthma presents to the ED today for evaluation of lumbar back pain x3 days. vital signs stable, afebrile. she is well appearing and in NAD. on exam, abdomen soft, non-tender, non-distended. No rebound tenderness or guarding. Positive BS x4. Rectal exam performed with Kelsey POWELL student present in room with patient's consent. Normal rectal sphincter tone. No external masses or lesions. No palpable stool in rectal vault. No midline spinous tenderness or step-off deformity. CMS intact distally. Differential diagnosis includes arthritis, msk strain, musclce spasm, DDD, sciatica, fracture, renal colic, UTI, nephrolithiasis, hydronephrosis Unlikely cauda equina, gullain barre, cord compression, epidural abscess. Plan for labs, ua, ct, pain control, re-eval. Differential Diagnosis Differential Diagnoses: The differential diagnosis associated with the presentation includes as above. Admission/Observation not indicated Lab Data [facility] Lab Attestation statement: I reviewed the patient's lab results. as above. 03/15/25 11:23 03/15/25 11:23 Labs: Lab Results 03/15/25 03/15/25 Range/Units 11:23 11:29 WBC 4.6 L (4.8-10.8) X10*3/uL RBC 4.70 (4.20-5.50) X10*6/uL Hgb 13.7 (12.0-16.0) g/dl Hct 40.1 (37.0-47.0) % MCV 85.3 (80.0-98.0) fL MCH 29.1 (27.0-33.0) pg MCHC 34.2 (31.0-35.0) g/dl RDW 12.3 (11.0-16.0) % Plt Count 235 (160-400) X10*3/uL MPV 9.0 L (9.4-12.3) fL Immature Gran % (Auto) 0.2 (0.0-0.4) % Neut % (Auto) 51.0 (45-73) % Lymph % (Auto) 37.1 (20-40) % [place] % (Auto) 7.8 (2-11) % Eos % (Auto) 3.0 (0-4) % Baso % (Auto) 0.9 (0-2) % Lymph # (Auto) 1.7 (1.2-4.9) X10*3/uL [place] # (Auto) 0.4 (0.1-1.2) X10*3/uL Eos # (Auto) 0.1 (0.0-0.4) X10*3/uL Baso # (Auto) 0.0 (0.0-0.2) X10*3/uL Abs Immat Gran (auto) 0.01 (0.00-0.03) X10*3/uL Absolute Neuts (auto) 2.4 (2.0-8.3) x10*3/uL Absolute Nucleated RBC 0.000 (0.0-0.012) X10*3/uL Nucleated RBC % (auto) 0.0 (0.0-0.2) /100WBC Sodium 140 (135-145) mmol/L Potassium 4.0 (3.3-5.1) mmol/L Chloride 107 (96-108) mmol/L Carbon Dioxide 26 (22-29) mmol/L Anion Gap 11 L (12-20) BUN 16 (9-16) mg/dL Creatinine 0.75 (0.5-1.4) mg/dL Estim Creat Clear Calc 92.1 Estimated GFR > 60 Random Glucose 121 H (60-115) mg/dL Calcium 9.2 D (8.4-10.2) mg/dL Total Bilirubin 0.6 (0.0-1.0) mg/dL AST 19 (5-31) U/L ALT 29 (0-31) U/L Alkaline Phosphatase 63 (39-117) U/L Total Protein 7.2 (6.5-8.0) g/dL Albumin 4.5 (3.5-5.0) g/dL Urine Color Yellow Urine Appearance Clear Urine pH 6.5 (5.0-9.0) Ur Specific [place] 1.025 (1.005-1.025) Urine Protein Negative (Neg-Trace) mg/dL Urine Glucose (UA) Negative (Negative) mg/dL Urine Ketones Negative (Negative) mg/dL Urine Blood Negative (Negative) Urine Nitrite Negative (Negative) Ur Leukocyte Esterase Negative (Negative) Independent Interpretation I performed an independent interpretation of an: CT Scan Interpretation: ct a/p w/o renal stones Radiology Impression Discussion of test interpretation with radiology: I have reviewed the radiologist's reading. Radiologist Impression: Date of Service: 03/15/25 Procedure(s): CT abdomen pelvis wo IV con Accession Number(s): [id number] cc: Silvino Andujar PA-C; Vidhi Goetz Report Number: [id number]: Total DLP = 578.00 mGy-cm EXAMINATION: CT ABDOMEN PELVIS WITHOUT IV CONTRAST HISTORY: flank pain, hx of stones COMPARISON: Comparison is made with the prior examination dated 05/17/2024. TECHNIQUE: CT scan of the abdomen and pelvis was performed without contrast using standard departmental protocol. Coronal and sagittal reformatted images were generated and reviewed. Oral contrast material was not administered per department protocol. This CT exam was performed with one or more of the following dose reduction techniques: automated exposure control, adjustment of the mA and/or kV according to patient size, use of iterative reconstruction technique. DLP: 578 mGy-cm FINDINGS: LOWER CHEST: The visualized lung bases are clear. There is no pleural effusion. CARDIOVASCULATURE: The heart is normal in size. There is no pericardial effusion. LIVER: The liver is normal in size and contour. There are punctate calcifications in the liver consistent with old granulomatous disease. GALLBLADDER / BILE DUCTS: The gallbladder is surgically absent. There is no intra or extrahepatic biliary ductal dilatation. SPLEEN: The spleen is normal in size. There are splenic calcifications, consistent with old granulomatous disease. PANCREAS: The pancreas has an unremarkable unenhanced appearance. ADRENAL GLANDS: Unremarkable. KIDNEYS/RETROPERITONEUM: No renal or ureteral calculi are identified. There is no hydronephrosis or hydroureter. There is a probable 1.5 cm cyst at the lower pole of the right kidney. LYMPH NODES: No retroperitoneal lymphadenopathy is identified in the abdomen or pelvis. VASCULATURE: The abdominal aorta is normal in caliber. MESENTERY/PERITONEUM: No free fluid. No masses. There is no free intraperitoneal gas. STOMACH: The stomach is collapsed, limiting evaluation. SMALL BOWEL: The small bowel is normal in caliber. COLON: The colon is unremarkable. APPENDIX: Normal. URINARY BLADDER/PELVIC ORGANS: The urinary bladder is unremarkable. The patient is status post hysterectomy. Again seen is a 1.7 cm soft tissue density at the anterior aspect of the vaginal cuff. BONES / SOFT TISSUES: There is degenerative disc disease of the spine. CT/CT abdomen pelvis wo IV con IMPRESSION: 1. No evidence of nephrolithiasis or ureteral obstruction. 2. Hepatic and splenic calcifications, consistent with old granulomatous disease. 3. Stable 1.7 cm soft tissue density anterior aspect of the vaginal cuff. Electronically signed by: Vazquez Parada MD 03/15/2025 01:50 PM EDT Independent Historian Clinical information obtained from an independent historian. History obtained from or confirmed by: Spouse External Record Review External record reviewed: Inpatient record Prescription Management I considered prescription management with: Pain Medication Social Determinants Patient?s care significantly limited by Social Determinants of Health including: Other Social Determinant of Health Critical Care Time Critical Care Time Critical Care Time: No Discharge Plan Discharge Clinical Impression: Degenerative disc disease, lumbar Patient Disposition: Home, Self-Care Instructions: Degenerative Disc Disease (ED) Additional Instructions: You were evaluated in the Emergency Department today for your back pain.? Your blood work is reassuring. Your urine is negative for infection or blood. The CT scan of your abdomen does not show any kidney stones. It does show degenerative disc disease of your spine which you are aware of. Avoid bending, lifting, or twisting. Use ice several times per day for 20 minutes at a time for the next 48 hours and then change to heat. I recommend you take 600mg ibuprofen every 6 hours or tylenol 650mg every 6 hours as needed for pain. If needed, you can alternate these medications so that you take one medication every 3 hours. For example, at noon take ibuprofen, then at 3pm take tylenol, then at 6pm take ibuprofen. I am sending tramadol to your pharmacy. This is a controlled pain medication. Take this as needed for breakthrough pain. Lidoderm patches are numbing patches. Apply to painful areas. Please schedule an appointment for follow-up with your primary care provider this week for further evaluation of your symptoms. Return to the Emergency Department if you experience worsening back pain, difficulty walking, fevers, numbness, tingling, incontinence, or any other concerning symptoms. In the case of an emergency call 911. Please follow up w/ outpatient providers regarding the following incidental findings on your CT scan: - soft tissue density along vaginal cuff (stable when compared to prior scans) - cyst to your right kidney (stable when compared to prior scans) Prescriptions: New tramadol 50 mg tablet 50 mg PO Q8H PRN (Reason: pain (scale score 4-6)) Qty: 7 0RF No Action (DME) blood-glucose meter [FreeStyle Precision Steffen Meter] Misc See Rx Instructions .Route Qty: 1 0RF Rx Instructions: As directed pantoprazole 40 mg tablet,delayed release (DR/EC) 40 mg PO BID 90 Days Qty: 180 1RF pioglitazone 15 mg tablet 15 mg PO DAILY 30 Days Qty: 30 1RF Ozempic 1 mg/dose (4 mg/3 mL) pen injector 1 mg subcut QWEEK 28 Days Qty: 3 6RF Mounjaro 5 mg/0.5 mL pen injector 5 mg subcut QWEEK 28 Days Qty: 2 2RF sucralfate 1 gram tablet 1 g PO QID Qty: 112 4RF telmisartan [Micardis] 20 mg tablet 20 mg PO DAILY@0900 Qty: 90 0RF cholecalciferol (vitamin D3) 25 mcg (1,000 unit) capsule 25 mcg PO DAILY 90 Days Qty: 90 0RF Mounjaro 7.5 mg/0.5 mL pen injector 7.5 mg subcut QWEEK 28 Days Qty: 2 2RF clonazepam 2 mg tablet 2 mg PO BEDTIME acetaminophen [Tylenol Arthritis Pain] 650 mg tablet extended release 650 mg PO Q12H 30 Days Qty: 60 3RF clonazepam 1 mg tablet 1 mg PO DAILY@0900 Patient Comments: 1 tab in the morning and 2 tablets at bedtime zolpidem 10 mg tablet 10 mg PO BEDTIME citalopram 20 mg tablet 20 mg PO DAILY@0900 cetirizine 10 mg tablet 10 mg PO DAILY PRN (Reason: allergy symptoms) 90 Days Qty: 90 2RF fenofibrate nanocrystallized 48 mg tablet 48 mg PO DAILY Qty: 90 2RF (DME) FreeStyle Precision Steffen Strips Strip See Rx Instructions .ROUTE .MEDSUPPLY Qty: 50 6RF Rx Instructions: As directed once daily atorvastatin 40 mg tablet 40 mg PO BEDTIME Qty: 90 2RF fluticasone propion-salmeterol [Advair HFA] 115-21 mcg/actuation HFA aerosol inhaler 2 puff inhalation Q12H 30 Days Qty: 12 11RF albuterol sulfate 90 mcg/actuation HFA aerosol inhaler 2 puff inhalation QID 30 Days Qty: 8.5 11RF tramadol 50 mg tablet 50 mg PO BID 7 Days Qty: 14 0RF prednisone 10 mg tablet 10 mg PO DIRECTED 9 Days Qty: 18 0RF Rx Instructions: Take 3 tablets x3 days, 2 tablets x3 days, 1 tablet x3 days albuterol sulfate 2.5 mg /3 mL (0.083 %) solution for nebulization 2.5 mg inhalation Q6H PRN (Reason: shortness of breath or wheezing) 30 Days Qty: 180 2RF gabapentin 600 mg tablet 600 mg PO BID 30 Days Qty: 60 3RF polyethylene glycol 3350 [Miralax] 17 gram powder in packet 17 g PO DAILY 30 Days Qty: 30 0RF Rx Instructions: Makes 17 g packet in to 8 oz of water and drink daily Referrals: Silvino Andujar PA-C [Primary Care Provider] - Interventions: ED Discharge Assessment Last Done: 03/15/25 16:59 Discharge Date/Time: 03/15/25 16:59 Print Language: Monegasque
[2025-03-15 15:21] VITALS: BP 106/48; PULSE 73; RESP 18; O2SAT 95
[2025-03-15] MEDS: Ibuprofen 600 MG TABLET PO (15:24)
[2025-03-15] MEDS: Acetaminophen 325 MG TABLET 650 MG PO (15:24)
[2025-03-15 16:59] VITALS: BP 106/48; PULSE 73; RESP 18; TEMP 36.8; O2SAT 95
== END 2025-03-15 16:59 | disposition home or self-care (01) ==
PROVIDERS: Emergency Provider Emergency Medicine; PCP Physician Assistant
DX: M51.369 Other intervertebral disc degeneration, lumbar region without mention of lumbar back pain or lower extremity pain (principal); M54.50 Low back pain, unspecified; E11.9 Type 2 diabetes mellitus without complications; I10 Essential (primary) hypertension; E78.5 Hyperlipidemia, unspecified; J45.909 Unspecified asthma, uncomplicated; Z79.899 Other long term (current) drug therapy; Z87.891 Personal history of nicotine dependence
CPT/HCPCS: 36415; 51798; 74176; 80053; 81003; 85025; 99212; 99284

== ENCOUNTER → 2025-03-15 12:54 | Outpatient (BNV) | payer OTHER, SELFPAY | PROVIDERS: PCP Physician Assistant; Visit Provider Radiology Diagnostic Radiology | DX: N89.8 Other specified noninflammatory disorders of vagina (principal); D73.89 Other diseases of spleen; K76.89 Other specified diseases of liver | CPT/HCPCS: 74176 ==

== ENCOUNTER 2025-05-05 14:52 | Outpatient (REF) | payer OTHER, SELFPAY ==
--- OUTSIDE RECORDS SUMMARY | 2025-01-07 05:30 | XMS_ITS ---
Author Organization [facility] Address [address] [place] [address] Care Team Providers Care Swine Nutritionist Name Role Phone Silvino Andujar Primary Care Provider Unavailab Sandra Vanegas Unavailable [phone] Encounters Encounter Location Date Provider Diagnosis [address] [address] 01/07/2025 Sandra Garcia Plan Of Treatment Next Appt Details Provider Name:Sandra Garcia , 06/24/2025 09:30:00 AM, [address] [place] [address], [address], Progress Notes * Jeannine MENDOZAeDOB:1965 (60 yo F)Acc No.[id number]:01/07/2025 Progress Note Patient: Debra WISE Provider: Jhoan Garcia DPM :1965 A ge:59 Y S ex:Female Date:01/07/2025 Address:[address] [place], [place] [phone] Pcp:Silvino Andujar Subjective: * Chief Complaints: * * Medical History: Objective: * Vitals: Assessment: Plan: * Treatment: * Images: * The named appointment provid er may or may not be the originator of this progress note, and it is not deemed complete until electronically signed by the appointment provider. Sign off status: Pending * Provider: Jhoan Garcia DPM Date: 0 01/07/2025 Generated for Dallia ambrose/Aleida/Radha on: 0 05/05/2025 03:20 PM EDT
--- OUTSIDE RECORDS SUMMARY | 2025-05-05 15:20 | XMS_ITS | Clinical Summary ---
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 Helper Name Role Phone Unavailable Primary Care Provider [...] 10/25/2014 Nephrolithiasis 10/25/2014 Overview (12/17/2024): Followed by [facility] Hyperlipidemia 08/26/2014 Major depression 08/26/2014 Overview (12/17/2024): Follows at [facility] Panic attacks 08/26/2014 Encounters Date Type Department Care Team Description 03/10/2025 10:45 AM EDT Office Visit [facility] [address] [place] [address] Kwesi Bragg DMD 02/05/2025 2:00 PM EDT Office Visit [facility] [address] [place] [address] Pattie Lilly, DDS Myalgia of mastication muscle (Primary Dx) from Last 3 Months Social History Tobacco [...] Screening 1966 SDOH Screening 1966 Sigmoidoscopy 1966 Disability Screening 1966 Alcohol/Substance Use Screening 1978 Tobacco Screening [...] 01/10/2021, Additional history exists Influenza Vaccine (#1) 2025 2, 10/31/2021, 08/03/2019, Additional history exists DTaP/Tdap/Td [...] PROCEDURE Routine 02/05/2025 2 :00 PM EDT PROPHYLAXIS - ADULT Routine 01/13/2019 1 2:00 AM EDT PERIODIC ORAL EVALUATION - ESTABLISHED PATIENT Routine 01/13/2019 12:00 AM EDT INTRAORAL - COMPLETE SERIES OF RADIOGRAPHIC IMAGES Routine 05/12/2018 12:00 AM EDT from Last 3 Months or Most Recently Relevant to Health Maintenance Insurance [facility]
--- OUTSIDE RECORDS SUMMARY | 2025-05-05 15:20 | XMS_ITS | Clinical Summary ---
Author Organization [facility] it Address [address] [place] [address] Care Team Providers Care Color Artist Name Role Phone Wilbert Moreau DO Primary Care Provider [phone] Surgical History Surgery Date Site/Laterality Comments TONSILLECTOMY PROCEDURE: HISTORICAL TONSILLECTOMY HYSTERECTOMY PROCEDURE: HISTORICAL HYSTERECTOMY OOPHORECTOMY Left PROCEDURE: HISTORICAL OOPHORECTOMY BREAST REDUCTION PROCEDURE: NV BREAST REDUCTION KIDNEY STONE SURGERY PROCEDURE: NV NEPHROLITHOTOMY REMOVAL CALCULUS OTHER SURGICAL HISTORY PROCEDURE: NV HEMORRHOIDECTOMY INT & XTRNL 2/> COLUMN/DIDIER SECTION PROCEDURE: HISTORICAL DELIVERY LAPAROSCOPIC GASTRIC BANDING PROCEDURE: LAP ADJUSTABLE GASTRIC BAND; COMMENT: and then removed on 11/25/15 BELT ABDOMINOPLASTY PROCEDURE: HISTORICAL TUMMY TUCK OTHER SURGICAL HISTORY 01/12/14 PROCEDURE: MAMMOGRAM OTHER SURGICAL HISTORY PROCEDURE: NV HEMORRHOIDECTOMY INTERNAL RUBBER BAND LIGATIONS Medical History Medical History Date Comments Nephrolithiasis 10/25/2014 DX:Nephrolithias is; COMMENT: Followed by [facility] Back pain, chronic 10/25/2014 DX:Back [...] 5 Years) and At-Risk Patients (6 to 49 Years) (1 of 2 - PCV) 1985 [...] Td or Tdap) 10/29/2024 10/29/2014 Influenza Vaccine (#1) 2025 RSV Immunization Adult Patie nts (1 - 1-dose 75+ series) 2041 HIB [...] Documents on File Type Date Recorded 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
--- OUTSIDE RECORDS SUMMARY | 2025-05-05 15:20 | XMS_ITS | Data Portability ---
Author Organization [employer] [facility], [facility] Address [address] [place] [phone] Care Team Providers Care Test Fixture Designer Name Role Phone HIM CCA OTHER ANDRAE LEARY Primary Care Provider [phone] Assessment No assessment recorded. Plan of Treatment Reminders Order Date Submit Date Provider Last Modified By Organization Details Last Modified Time Details Appointments None recorded. Lab None recorded. Referral None recorded. Procedures None recorded. Surgeries None recorded. Imaging None recorded. Medication Orders lactated Ringers intravenous solution 2024 025 [id number], [address] [place], [id number], 18:02:05 prednisone 20 mg tablet 2024 025 [id number], [address] [place], [id number], 18:38:16 prednisone 20 mg tablet 2024 025 [facility], [address] [place] [address], [id number], 18:42:21 Patient TargetsNo targets recorded. Patient InstructionsNo [...] blood by Pulse oximetry Body temperature Systolic And Diastolic Provider Name and Address Organization Details Last Updated DateTime 5 120 /min 167.64 cm 60225.2 16 g 102.3 [degF] 18 /min 99 % 99 % 99.9 [degF] 115/73 mm[Hg] Not Available [facility] - production 5 [...] SNOMED-CT Code Diagnosis ICD10 Code Diagnosis Note [id number] LINDA GEORGE MD Main - [facility] [address] [place] [phone] 01/01/2025 17:44:31 01/01/2025 21:09:04 Influenza-like illness [id number] B34.9 Evaluation in the field was performed by my nitrogen operator colleague, as noted above, I provided [...] SpO2: 99% on room air. Temperatur e: 102.3 FPhysical Exam: AAO, no acute distress , speaking [...] course. First dose was given by the nitrogen operator. -Pt advised to avoid irritants like [...] Anna Member ID Guarantor Name 01/01/2025 1 [facility] - DOS ON OR AFTER 2023 - DUAL ELIGIBLE - RESIDENTIAL OPTIONS AND ONE CARE (MEDICARE REPLACEMENT/ADV ANTAGE - HMO) Debra Mandel [id number] Debra Mandel Notes Date Note Type Note [...] Pain with inspirationDenies: Increased work of breathing/labored with or without fever Unable to speak in full sentences without distress Discoloration of skin -cyanosis Needs to sleep sitting up, can t catch breath Shortness of breath in setting of confusion COPD Shortness of breath with exertion Chief Complaints: Common ColdPMH: Asthma, Hypertension, Diabetes Mellitus Type 2, HyperlipidemiaPMH Reviewed at 01/01/2025:55Allergies Reviewed at 01/01/2025:55Comments: Terminal Gauger verified the name//address and phone number.Pt has [...] s/s and seek emergency treatment if needed Manager Lpn Organization Information for Juan White Bassem Legal Name: [employer]. Address: [address] [place] [address], Distribution Manager: Jose C Hylton MD CLIA No.: [id number] Manager Lpn POC Test Results from Juan White [facility] Rapid influenza antigen (17:57:03) Flu: - Rapid COVID antigen (17:57:04) COVID: - ...................... ...................... ...................... ...................... ...................... ...................... ......... Manager Lpn Note From Juan White: [facility] visit for female pt presenting with [...] did nebulizer treatment about 15 minutes [facility]. [facility] George who ordered 1 liter IV normal saline given on scene. [facility] also ordered 40 mg of prednisone. Pt given tablets but she said she was going to wait until she ate to taken them. Reviewed red flags for ED. Reviewed dosage guidelines for tylenol. Pt education provided. [facility] Medication Orders: lactated Ringers intravenous solution: Administered prednisone 20 mg tablet: Administered ...................... ...................... ...................... ...................... ...................... ...................... ......... [facility] Consulted: Linda George ...................... ...................... ...................... ...................... ...................... ...................... ......... Disposition: Fulfilled LINDA GEORGE MD [address] [place] [address],[address] [facility], [place], [address], [employer] 01/01/2025 20:53:49 OBGyn Episode No OBEpisode recorded.
== END 2025-05-05 14:53 | disposition home or self-care (01) ==
LOC: HO.MAMMO 14:52
PROVIDERS: PCP Physician Assistant; Visit Provider Physician Assistant
DX: Z12.31 Encounter for screening mammogram for malignant neoplasm of breast (principal)
CPT/HCPCS: 77063; 77067

== ENCOUNTER → 2025-05-05 15:15 | Outpatient (BNV) | payer OTHER, SELFPAY | PROVIDERS: PCP Physician Assistant; Visit Provider Internal Medicine | DX: Z12.31 Encounter for screening mammogram for malignant neoplasm of breast (principal) | CPT/HCPCS: 77063; 77067 ==

== ENCOUNTER 2025-05-27 11:53 | Outpatient (REF) | payer OTHER, SELFPAY ==
--- OUTSIDE RECORDS SUMMARY | 2025-01-07 05:30 | XMS_ITS ---
Author Organization [facility] Address [address] [place] [address] Care Team Providers Care Traveling Crane Operator Name Role Phone Silvino Andujar Primary Care Provider Unavailab Sandra Vanegas Unavailable [phone] Encounters Encounter Location Date Provider Diagnosis [address] [address] 01/07/2025 Sandra Garcia Plan Of Treatment Next Appt Details Provider Name:Sandra Garcia , 06/24/2025 09:30:00 AM, [address] [place] [address], [address], Progress Notes * Jeannine MENDOZAeDOB:1965 (60 yo F)Acc No.[id number]:01/07/2025 Progress Note Patient: Debra WISE Provider: hJoan Garcia DPM :1965 A ge:59 Y S ex:Female Date:01/07/2025 Address:[address] [place], [place] [phone] Pcp:Silvino Andujar Subjective: * Chief Complaints: * [...] 01/07/2025 Generated for Dalila ambrose/Aleida/Radha on: 0 05/27/2025 12:29 PM EDT
--- NOTE | ~2025-05-27 | MM_ITS ---
EXAMINATION: MM DIAGNOSTIC DIGITAL BREAST TOMOSYNTHESIS, LEFT Limited left breast ultrasound. CLINICAL INFORMATION: Call back from screening for 2 left lateral breast asymmetries. COMPARISON: Mammography: [facility] on PACS. TECHNIQUE: Digital breast tomosynthesis is performed in both the craniocaudal and mediolateral oblique views along with computer-aided detection (CAD). Synthesized 2D images are generated from the tomosynthesis. FINDINGS: There are scattered areas of fibroglandular density (ACR BI-RADS breast composition Category b). Previously seen asymmetry in the superior breast on MLO view does not persist on additional imaging projections and likely represented overlapping breast tissue. Previously seen asymmetry in the lateral breast on CC view middle depth does not persist on additional imaging projections and likely represented overlapping breast tissue. No suspicious calcifications or other abnormal findings. Targeted color Doppler ultrasound scanning from 1-5 o'clock in the lateral breast demonstrates an incidental hyperechoic oval parallel circumscribed patch of normal fibroglandular breast tissue versus lipoma at 2:00 7 cm from the nipple measuring 15 x 7 x 17 mm. Otherwise scanning from 1-5 o'clock demonstrates normal fibroglandular breast tissue. MM/MM tomosynthesis added views L IMPRESSION: No mammographic evidence of malignancy. Incidental patch of hyperechoic fibroglandular breast tissue versus lipoma. Benign. ASSESSMENT: BI-RADS BI-RADS 2 - Benign Findings RECOMMENDATION: 1 year F/U Results were provided to the patient at time of visit by the technologist. This patient's information was entered into a reminder system with a target due date for their next mammogram. Electronically signed by: Anila Ko DO 05/27/2025 01:12 PM EDT
--- OUTSIDE RECORDS SUMMARY | 2025-05-27 12:30 | XMS_ITS | Clinical Summary ---
Author Organization [facility] Address [address] [place] [address] Care Team Providers Care [place] Laborer Name Role Phone Wilbert Moreau DO Primary Care Provider [phone] Surgical History Surgery Date Site/Laterality Comments TONSILLECTOMY [...] Nephrolithiasis 10/25/2014 DX:Nephrolithias is; COMMENT: Followed by [facility] Back pain, chronic 10/25/2014 DX:Back [...] ars (1 of 2 - PCV) 1985 Cervical Cancer Screening: P ap Smear 1987 Zoster Vaccines (1 of 2) 2016 Cholesterol Screening (Lipid Panel) 09/30/2022 Colorectal Cancer Screening: Colonoscopy 09/30/2022 HIV Screening 09/30/2022 Hepatitis C Screening 09/30/2022 Social Influencers of Health Screening 09/30/2022 COVID-19 Vaccine (1 - 2023-2 5 season) 2024 Depression Screening 10/28/2024 DTaP,Tdap,and Td Vaccines (2 - Td or [...] Documents on File Type Date Recorded Patient Manifest/Order Organizer Print Orders Expl anation Health Care Decision (hx) 12/01/2018 AD COREAS DIRECTIVE Health Care Decision (hx) 12/01/2018 AD COREAS DIRECTIVE Health Care Decision (hx) 12/01/2018 AD COREAS DIRECTIVE Care Teams [place] Laborer Relationship Specialty Start Date End Date Wilbert Moreau DO [address] [place] [id number] PCP - General 04/19/16
--- OUTSIDE RECORDS SUMMARY | 2025-05-27 12:30 | XMS_ITS | Clinical Summary ---
Author Organization [employer] Address [address] [facility] [address] [place] [address] Care Team Providers Care Imaging Technician Name Role Phone Unavailable Primary Care Provider [...] 10/25/2014 Nephrolithiasis 10/25/2014 Overview (12/17/2024): Followed by [facility] Hyperlipidemia 08/26/2014 Major depression 08/26/2014 Overview (12/17/2024): Follows at [facility] Panic attacks 08/26/2014 Encounters Date Type Department Care Team Description 03/10/2025 10:45 AM EDT Office Visit [facility]ULT [facility] [address] [place] [address] Kwesi Bragg DMD from Last 3 Months Social History Tobacco [...] Full Mouth 05/13/2021 05/12/2018 COVID-19 Vaccine ( - season) 2024 10/26/2021, 01/26/2021, 01/10/2021, Additional history [...] OFFICE VISIT Routine 03/10/2025 10:45 AM EDT PROPHYLAXIS - ADULT Routine 01/13/2019 1 2:00 AM EDT PERIODIC ORAL EVALUATION - ESTABLISHED PATIENT Routine 01/13/2019 12:00 AM EDT INTRAORAL - COMPLETE SERIES OF RADIOGRAPHIC IMAGES Routine 05/12/2018 12:00 AM EDT from Last 3 Months or Most Recently Relevant to Health Maintenance Insurance DENTAL - [facility]
== END 2025-05-27 11:54 | disposition home or self-care (01) ==
LOC: HO.MAMMO 11:53
PROVIDERS: PCP Physician Assistant; Visit Provider Physician Assistant
DX: N64.89 Other specified disorders of breast (principal)
CPT/HCPCS: 76642; 77061; 77065

== ENCOUNTER → 2025-05-27 12:30 | Outpatient (BNV) | payer OTHER, SELFPAY | PROVIDERS: PCP Physician Assistant; Visit Provider Internal Medicine | DX: R92.8 Other abnormal and inconclusive findings on diagnostic imaging of breast (principal) | CPT/HCPCS: 76642; 77065; G0279 ==

== ENCOUNTER 2025-06-02 11:49 | Outpatient (REF) | payer OTHER, SELFPAY ==
--- OUTSIDE RECORDS SUMMARY | 2025-01-07 05:30 | XMS_ITS ---
Author Organization [facility] Address [address] [place] [address] Care Team Providers Care Food Service Steward Name Role Phone Silvino Andujar Primary Care Provider Unavailab Sandra Vanegas Unavailable [phone] Encounters Encounter Location Date Provider Diagnosis [address] [address] 01/07/2025 Sandra Garcia Plan Of Treatment Next Appt Details Provider Name:Sandra Garcia , 06/24/2025 09:30:00 AM, [address] [place] [address], [phone], Progress Notes * REJI JeannineeDOB:1965 (60 yo F)Acc No.[id number]:01/07/2025 Progress Note Patient: Debra WISE Provider: Jhoan Garcia DPM :1965 A ge:59 Y S ex:Female Date:01/07/2025 Address:[address] [place], [place] [phone] Pcp:Silvino Andujar Subjective: * Chief Complaints: * * Medical History: Objective: * Vitals: Assessment: Plan: * Treatment: * Images: * The named appointment provid er may or may not be the originator of this progress note, and it is not deemed complete until electronically signed by the appointment provider. Sign off status: Pending * Provider: Jhoan Garcia DPM Date: 0 01/07/2025 Generated for Dalila ambrose/Aleida/Radha on: 0 06/02/2025 12:34 PM EDT
[2025-06-02 12:28] LABS: Hematocrit 38.5 % (37.0-47.0); Hemoglobin 13.7 g/dl (12.0-16.0); Mean Corpuscular HGB Conc 35.6 g/dl (31.0-35.0); Mean Corpuscular Hemoglobin 29.5 pg (27.0-33.0); Mean Corpuscular Volume 82.8 fL (80.0-98.0); NRBC Abs Auto 0.000 X10*3/uL (0.0-0.012); NRBC Pct Auto 0.0 /100WBC (0.0-0.2); Platelet Count 245 X10*3/uL (160-400); Red Blood Count 4.65 X10*6/uL (4.20-5.50); White Blood Count 5.3 X10*3/uL (4.8-10.8)
--- OUTSIDE RECORDS SUMMARY | 2025-06-02 12:34 | XMS_ITS | Clinical Summary ---
Author Organization [employer] Address [address] [facility] [address] [place] [address] Care Team Providers Care Employment Law Attorney Name Role Phone Unavailable Primary Care Provider [...] 10/25/2014 Nephrolithiasis 10/25/2014 Overview (12/17/2024): Followed by [facility] Hyperlipidemia 08/26/2014 Major depression 08/26/2014 Overview (12/17/2024): Follows at [facility] Panic attacks 08/26/2014 Encounters Date Type Department Care Team Description 03/10/2025 10:45 AM EDT Office Visit [facility] ADULT [facility] [address] [place] [address] Kwesi Bragg DMD from Last 3 Months [...] Relevant to Health Maintenance Insurance DENTAL - [facility]
--- OUTSIDE RECORDS SUMMARY | 2025-06-02 12:34 | XMS_ITS | Clinical Summary ---
Author Organization [facility] it Address [address] [place] [address] Care Team Providers Care Housekeeping Attendant Name Role Phone Wilbert Moreau DO Primary Care Provider [phone] Surgical History Surgery Date Site/Laterality Comments TONSILLECTOMY PROCEDURE: HISTORICAL TONSILLECTOMY HYSTERECTOMY PROCEDURE: HISTORICAL HYSTERECTOMY OOPHORECTOMY Left PROCEDURE: HISTORICAL OOPHORECTOMY BREAST REDUCTION PROCEDURE: DE BREAST REDUCTION KIDNEY STONE SURGERY PROCEDURE: DE NEPHROLITHOTOMY REMOVAL CALCULUS OTHER SURGICAL HISTORY PROCEDURE: DE HEMORRHOIDECTOMY INT & XTRNL 2/> COLUMN/DIDIER SECTION PROCEDURE: HISTORICAL DELIVERY LAPAROSCOPIC GASTRIC BANDING PROCEDURE: LAP ADJUSTABLE GASTRIC BAND; COMMENT: and then removed on 11/25/15 BELT ABDOMINOPLASTY PROCEDURE: HISTORICAL TUMMY TUCK OTHER SURGICAL HISTORY 01/12/14 PROCEDURE: MAMMOGRAM OTHER SURGICAL HISTORY PROCEDURE: DE HEMORRHOIDECTOMY INTERNAL RUBBER BAND LIGATIONS Medical History Medical History Date Comments Nephrolithiasis 10/25/2014 DX:Nephrolithias is; COMMENT: Followed by [facility] Back pain, chronic 10/25/2014 DX:Back pain, [...] Documents on File Type Date Recorded 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
[2025-06-02 13:56] LABS: Alanine Aminotransferase 34 U/L (0-31); Albumin Level 4.5 g/dL (3.5-5.0); Alkaline Phosphatase 65 U/L (39-117); Anion Gap 12 (12-20); Aspartate Amino Transferase 17 U/L (5-31); Blood Urea Nitrogen 15 mg/dL (9-16); Calcium 8.8 mg/dL (8.4-10.2); Carbon Dioxide 25 mmol/L (22-29); Chloride 109 mmol/L (96-108); Cholesterol 200 mg/dL (<200); Estimated Glomerular Filt Rate > 60; HDL Cholesterol 65 mg/dL (>40); Potassium 3.8 mmol/L (3.3-5.1); Sodium 142 mmol/L (135-145); Total Protein 6.9 g/dL (6.5-8.0); Triglycerides 133 mg/dL (<150)
== END 2025-06-02 11:50 | disposition home or self-care (01) ==
LOC: HO.LAB 11:49
PROVIDERS: PCP Physician Assistant; Visit Provider Physician Assistant
DX: E11.9 Type 2 diabetes mellitus without complications (principal); E78.5 Hyperlipidemia, unspecified; Z79.4 Long term (current) use of insulin
CPT/HCPCS: 36415; 80053; 80061; 85027

== ENCOUNTER 2025-06-03 12:28 | Outpatient (AMB) | payer OTHER, SELFPAY ==
--- OUTSIDE RECORDS SUMMARY | 2025-01-07 05:30 | XMS_ITS ---
Author Organization [facility] Address [address] [place] [address] Care Team Providers Care Hat Blocking Machine Operator Name Role Phone Silvino Andujar Primary Care Provider Unavailab Sandra Vanegas Unavailable [phone] Encounters Encounter Location Date Provider Diagnosis [address] [address] 01/07/2025 Sandra Garcia Plan Of Treatment Next Appt Details Provider Name:Sandra Garcia , 06/24/2025 09:30:00 AM, [address] [place] [address], [address], Progress Notes * Jeannine MENDOZAeDOB:1965 (60 yo F)Acc No.[id number]:01/07/2025 Progress Note Patient: Debra WISE Provider: Jhoan Garcia DPM :1965 A ge:59 Y S ex:Female Date:01/07/2025 Address:[address] [place], [place] [phone] Pcp:Silvino Andujar Subjective: * Chief Complaints: * [...] 01/07/2025 Generated for Dalila ambrose/Aleida/Radha on: 0 06/03/2025 12:38 PM EDT
--- NOTE | 2025-06-03 12:32 | MHC.OFFVIS ---
Vital Signs 06/03/25 12:35 Height 5 ft 6 in Weight 194 lb 0.108 oz BMI 31.3 BP 132/64 Blood Pressure Location Lt brachial Position Sitting Pulse 66 Intake Visit Reasons: gerd, abd pain Intake Note: Debra presents in the office as a follow up for GERD and abdominal pains CC: States she has on and off both constipation and diarrhea with pains in the stomach. Installation Supervisor Required: No Allergies seafood Allergy (Unknown, Verified 06/03/25 12:35) Unknown dulaglutide (From [facility]) Adverse Reaction (Intermediate, Verified 06/03/25 12:35) Diarrhea metformin Adverse Reaction (Intermediate, Verified 06/03/25 12:35) GAstric upset lisinopril Adverse Reaction (Unknown, Verified 06/03/25 12:35) cough Medication List - Last Reconciled 06/03/25 by Shabnam Hitchcock MD acetaminophen ER (Tylenol Arthritis Pain) 650 mg PO Q12H 30 days albuterol sulfate 90 mcg/actuation 2 puffs inhalation QID 30 days albuterol sulfate 2.5 mg (3 mL) inhalation Q6H PRN 30 days atorvastatin 40 mg PO BEDTIME blood sugar diagnostic (FreeStyle Precision Steffen Strips) As directed once daily blood-glucose meter (FreeStyle Precision Steffen Meter) As directed cetirizine 10 mg PO DAILY PRN 90 days cholecalciferol (vitamin D3) 25 mcg PO DAILY 90 days citalopram 20 mg PO DAILY@0900 clonazepam 2 mg PO BEDTIME clonazepam 1 mg PO DAILY@0900 fenofibrate nanocrystallized 48 mg PO DAILY fluticasone propion-salmeterol 115-21 mcg/actuation (Advair HFA) 2 puffs inhalation Q12H 30 days gabapentin 600 mg PO BID 30 days pantoprazole 40 mg PO BID 90 days pioglitazone 15 mg PO DAILY 30 days Held on 02/10/25. Instructions: Doctor's Order polyethylene glycol 3350 (Miralax) 17 grams PO DAILY 30 days sucralfate 1 g PO QID telmisartan (Micardis) 20 mg PO DAILY@0900 tirzepatide (Mounjaro) 7.5 mg (0.5 mL) subcut QWEEK 4 weeks tramadol 50 mg PO Q8H PRN zolpidem 10 mg PO BEDTIME HPI HPI gerd, abd pain: Details: GI CLINIC VISIT FOR THIS 60-YEAR-OLD FEMALE FOR RECTAL PAIN. PT IS FOLLOWED IN GI FOR DYSPHAGIA AND EPIGASTRIC PAIN. PATIENT IS STATUS POST LAP BAND SURGERY IN 2010 AND LAP BAND WAS REMOVED IN 2016. Pt was seen by Dr Parry for anal pain and treated with topical NTG followed by Nifedipine Pelvic CT scan was negative for perianal abscess. CHRONIC ILLNESSES:?hypercholesterolemia, depression, anxiety, asthma, hemorrhoids, hypertention diabetes type II, nephrolithiasis? TODAY'S VISIT CC: States she has on and off both constipation and diarrhea with pains in the stomach. Patient follow up for GERD and abdominal bloating and EGD and MRI results Patient cc: Diarrhea, abdominal pain with bloating, acid reflex with burning sensation, food stock on her throat. Tiredness and also fatigue Complains od diarrhea alternating with constipation - depending on her diet. Gets diarrhea if food is greasy. Has a BM daily with intermittent hard stools PAST VISITS: I am doing so so Constipation x 2 weeks. Day she had the MRI she had hard stools followed by diarrhea. Had 6-7 BMs yesterday and had an accident in bed last night. Had the urge to have a BM and unable to have a BM when she goes to the bathroom Pt reports she is feeling better. Can have some pain if she eats something hard - meats and crackers, sauces. Has been avoiding foods which cause abd pain and medication is helping. She is being switched to a new medication for DM - waiting for insurance approval. Patient cc: abdominal pain/bloating, acid reflex with burning sensation, and between diarrhea and constipation. Pt seen by Water Plant Maintenance Mechanic at [facility] and had a Pelvic US on 02/25/24 - ? post surgical changes related to past hysterectomy She was told it looks like a fibroma and no surgery is needed. EGD and bx results reviewed Pt denies any change in abdominal pain. Taking Sucralfate Abd pain was better while she was in the hospital and not taking the metformin Thinks abd pain may be related to metformin Has been taking Metformin for the past ? 4 yrs (since dxed with DM) Woke up with burning pain last night. Pain is associated with intake of hard and spicy foods (meats, rice, greasy foods) Patient continue with abdominal bloating, acid reflex with esophagus irritation, and between diarrhea and constipation. Complains of bloating and esophageal discomfort. Intermittent dysphagia associated with intake of rice and meats Patient denies significant improvement in dysphagia after past EGD and dilation. She complains of diarrhea alternating with constipation - recent C diff toxin was negative. Takes tramadol and ibuprofen infrequently for severe pain. EGD and colon results reviewed with the patient. Notes upper abdominal discomfort. Feels food is moving slowly in the lower esophagus. Had choking with a piece of meat Gives a hx of colon polyps in the past Diarrhea is better - taking probiotics Niece has stage 4 lung cancer and rapidly declining and on being placed under hospice care. Patient cc: Nauseas, abdominal pain/bloating, and diarrhea on and off, also she is been having some swallowing problems. Diarrhea comes and goes. Notes post prandial nausea and sometimes diarrhea. Stool is frothy and floats on the toilet water. She also complains of bad breath - which is new (states dental check up was normal) Notes diarrhea with everything she eats. Intermittent abdominal bloating When she eats she feels she has eaten a ton of food. Has symptoms with solid food and not with soups. Denies nausea or vomiting. SANDOVAL x 4 days - COVID test was negative. Notes cramps in the abdominal wall when she moves from side to side - likely musculoskeletal. Bad breath has improved with medications. Has 2 BMs a day - depending on her diet. Last episode of diarrhea started after she had antibiotics for sinus infection Recurrent diarrhea with abd pain x 2 weeks Notes bad breath Notes sharp and throbbing pain in the rectum after having multiple episodes of diarrhea Chills at night which she attributes to menopause. Has been eating small portions due to decreased appetite Wt loss to 200 lbs (208 lbs in 11/2020) LABS IN qualifyor:?05/16 Reviewed. Stool antigen for C Diff was positive ON AND February and negative on 10/08/19 ?IMAGING STUDIES: 02/04/[address] SCAN SHOWED: Lobulated mass anterior to the vaginal cuff is unchanged relative to comparison studies. It measures approximately 3.4 x 2.3 x 2.5 cm. Gastric wall thickening is suspected. Consider correlation with direct visualization. Hepatomegaly and hepatic steatosis. 07/2021 GASTRIC EMPTYING STUDY SHOWED:No abnormal retention of solid food is noted. Gastric emptying is more rapid than normal, a finding of uncertain clinical significance. ?09/13/[address] SCAN SHOWED: ? Mild right hydroureteronephrosis. 0.5 cm calculus at the right ureterovesicular junction. ? Hepatomegaly with hepatic steatosis. 07/15 Barium swallow showed:? Delay in passage of a 13 mm barium tablet across the gastroesophageal junction, raising the possibility of underlying stricturing.? No delay in liquid barium passage across the gastroesophageal junction. ENDOSCOPIC STUDIES: ? 02/04/24 EGD SHOWED: Esophagus: GE junction at 37 cm, diaphragm hiatus at 37 cm, normal Stomach: mild patchy erythema . Biopsies were obtained. Grade 2 flap valve on retroflexed examination of the cardia. Duodenum: Normal bulb and descending duodenum, bx taken Impression/Findings: mild gastritis PLAN: cont with PPI add carafate QID if ongoing sx then consider US duplex to r/o ischemia, and if neg then head scan to r/o central cause of sx BIOPSIES SHOWED: A. Duodenum, biopsy: Chronic inactive duodenitis. B. Stomach, biopsy: Oxyntic mucosa within normal limits; no Helicobacter organisms 04/2023 EGD AND COLONOSCOPY SHOWED:ESOPHAGUS: Tortuous esophagus with increased tertiary contractions without stricture or ring - biopsies obtained during past EGD were negative for EOE.??GE junction at 36 cms.? Minimal focal esophagitis at GE junction and no Garcia's.Empiric balloon dilation was performed with a 20 mm (60 F) CRE balloon x 60 sec STOMACH: Mild gastritis DUODENUM: A small benign appearing polyp was biopsied in the duodenal bulb. Biopsied obtained from 3rd part of the duodenum to check for celiac sprue Colonoscopy Findings: One polyp was biopsied - biopsies showed lymphoid aggregates. Random biopsies obtained from the right and left colon to check for microscopic colitis Moderate diverticulosis seen in the sigmoid colon Small hemorrhoids on retroflexed exam. Colon aspirate was sent for C Diff toxin Plan: Repeat Colonoscopy interval based on path results - in 3-5 years if polyps are adenomatous and 10 years if polyps are hyperplastic. 12/16/20 EGD SHOWED:ESOPHAGUS: Tortuous esophagus with increased tertiary contractions without stricture or ring - biopsies were obtained from proximal esophagus to check for EOE.GE junction at 36 cms.? Prominent folds at GE junction - biopsied.? No esophagitis or BarrettBalloon dilation was performed with 19 and 20mm CRE balloon x 60 seconds at each level STOMACH: Gastritis with a few superficial antral erosions likely due to NSAIDS DUODENUM: Normal - biopsied to check for celiac sprue. Plan:? Patient has an appointment on 01/19/21 in the GI Clinic with Shabnam Hitchcock M.D. If symptoms persist, further evaluation with a chest CT scan will be scheduled Above findings were reviewed with the patient and Gastritis handout was given in the discharge area BIOPSIES SHOW: A.? Small bowel, biopsy:? Small bowel mucosa within normal limits; preserved villous architecture and no increased intraepithelial lymphocytes. B. Stomach, antrum, biopsy:? Gastric antral mucosa with mild chronic inactive gastritis; negative for Helicobacter pylori, intestinal metaplasia and dysplasia. C. Esophagus, proximal, biopsy:? Squamous mucosa within normal limits; negative for inflammation (including eosinophils), fungal organisms, intestinal metaplasia and dysplasia. D. Gastroesophageal junction, biopsy:? Gastric cardia-type mucosa with mild chronic inactive inflammation; no squamous mucosa seen; negative for intestinal metaplasia or dysplasia. 07/2018 EGD WITH ESOPHAGEAL BALLOON DILATION WAS PERFORMED BY DR. JENKINS:? 1. Distal esophageal ring (question of muscular).? 2. Superficial gastritis.BIOPSIES SHOWED: Fragments of unremarkable fundic-type gastric mucosa. The Helicobacter pylori immunohistochemical stain is negative. ?? ? IMPEDENCE TESTIN HR AMBULATORY pH-IMPEDENCE TESTING WITH HIGH RESOLUTION ESOPHAGEAL MANOMETRY: ? Normal UES function, Normal LES length ? Normal LES/EGJ resting pressure, Normal LES relaxation ? No hiatal hernia was detected manometrically ? Quincy Classification 3.0: Normal Esophageal contractilit [facility] Medical History Calcified granuloma of lung History of panic attacks Asthma Anal fissure Anal pain Pulmonary nodules Hx of renal calculi Flu-like symptoms Spondylosis of lumbar spine Fibromyalgia Dyslipidemia Obesity, Class I, BMI 30-34.9 Nephrolithiasis Recurrent Clostridioides difficile infection Hx of thyroid nodule Back pain Arthritis Depression Anxiety Type 2 diabetes mellitus HLD (hyperlipidemia) GERD (gastroesophageal reflux disease) HTN (hypertension) Surgical History History of esophagogastroduodenoscopy (EGD) Hx of cosmetic surgery Hx of tonsillectomy Hx of section Hx of lithotripsy Hx of endoscopy Hx of colonoscopy (~11/2016) S/P anal fissurectomy H/O hemorrhoidectomy Hx laparoscopic cholecystectomy S/P left oophorectomy H/O partial thyroidectomy (~2016) History of removal of laparoscopic gastric banding device (~2015) History of abdominoplasty History of colonoscopy History of laparoscopic adjustable gastric banding (~2010) History of bilateral breast reduction surgery (~2008) History of hysterectomy Family History Father Diabetes Hypertension Depression Mother Lung cancer Diabetes Mental health disorder Brother HIV (human immunodeficiency virus infection) Depression Diabetes Sister Hypertension Diabetes Mental health disorder Daughter Mental health disorder Son Mental health disorder Social History Household Members: Children Housing: House Do you presently have visiting nurse or other home services: Yes Alcohol intake: current Alcohol intake frequency: a few times a month Patient Tobacco Use Status: Former Tobacco user e-Cigarette/Vaping Use: Never Used Second Hand Smoke Exposure: No Substance Use Type: Marijuana Advance Directives Date on File: 02/06/24 service: No Current occupational status: disabled Cognitive needs: No Hearing needs: No Vision needs: Yes Review of Systems Const All systems reviewed & are unremarkable except as noted in HPI and below Physical Exam Vital Signs: Last Vital Signs Pulse 66 06/03/25 12:35 BP 132/64 06/03/25 12:35 BMI result Body Mass Index 31.3 Const General: healthy appearing and no acute distress Nutritional Appearance: obese Orientation/consciousness: patient oriented x3 Limitations: no limitations HEENT Head: Yes normal to inspection Ears: hearing grossly normal bilaterally Eyes Sclerae: sclerae normal Pupils: Equal, round and reactive pupils present Neck Neck: Yes normal visual inspection Chest Chest palpation & inspection: normal inspection of the chest Resp Effort & Inspection: normal respiratory effort Auscultation: clear to auscultation bilaterally Cardio Palpation: normal PMI Rate: regular rate Rhythm: regular rhythm Heart sounds: S1 normal heart sound present, S2 normal heart sound present and no murmurs GI Palpation (GI): Soft to palpation, nontender and No hepatosplenomegaly present Auscultation: normal bowel sounds Rectal Exam - Female: deferred Skin General skin exam: no rashes or lesions noted Neuro General: patient oriented x3, gait normal and moves all extremities Cranial nerves: Yes Equal, round and reactive pupils present Psych Appearance: grossly normal Mental Status: mental status grossly normal Assessment & Plan Assessment & Plan (1) Colon cancer screening: Comment: 11/2016 a diminutive polyp was removed during colonoscopy by Dr. Jenkins. Repeat colonoscopy was advised in 10 years. 04/2023 Colon performed for evaluation of diarrhea. Colonoscopy was negative with normal biopsies. FU colon in 10 yrs (due 04/2033) Code(s): Z12.11 - Encounter for screening for malignant neoplasm of colon Category: Medical (2) Abdominal bloating: Code(s): R14.0 - Abdominal distension (gaseous) Category: Medical (3) Dysphagia, pharyngoesophageal phase: Code(s): R13.14 - Dysphagia, pharyngoesophageal phase Category: Medical (4) Abdominal pain: Code(s): R10.9 - Unspecified abdominal pain Category: Medical (5) GERD (gastroesophageal reflux disease): Code(s): K21.9 - Gastro-esophageal reflux disease without esophagitis Category: Medical Qualifiers: Esophagitis bleeding: without hemorrhage Esophagitis presence: with esophagitis Qualified Code(s): K21.00 - Gastro-esophageal reflux disease with esophagitis, without bleeding (6) Esophageal spasm: Code(s): K22.4 - Dyskinesia of esophagus Category: Medical (7) Abnormal magnetic resonance cholangiopancreatography (MRCP): Code(s): R93.3 - Abnormal findings on diagnostic imaging of other parts of digestive tract Category: Medical Plan 60 YF with hypercholesterolemia, depression, anxiety, asthma, hemorrhoids, hypertension diabetes type II, migraine headache thyroid disease (S/p surgery with removal of 1/2 of the gland), nephrolithiasis followed in GI for dysphagia, known hx of Schatzki's ring, epigastric pain, diarrhea and constipation. Patient is status post cholecystectomy for gallstones. Pt has a hx of recurrent C Diff infection. Patient is status post lap band surgery in 2010 and lap band was removed in 2015. She reports pain at her upper stomach ever since she had the band place and even after removal. Manometry study at [facility] was normal - no motility disorder was identified Patient has been referred to Dr Larsen for a 2nd opinion and appt was postponed due to COVID-19 pandemic and pt was not seen. 12/16/20 upper endoscopy with esophageal balloon dilation to 20mm (60 F) was performed without significant change in her symptoms. Pt has had recurrent C Diff since 2018 usually precipitated by antibiotic therapy. Last episode was in 03/2021 and treated with Vancomycin 125 mg four times daily x 10 days Patient was advised to continue HC cream/preparation H for hemorrhoids and referred to surgery. Pt advised to have a stool test checked for C Diff if she has recurrent diarrhea. 04/2023 EGD (FU of dysphagia) and colonoscopy were performed and results as noted above Patient advised repeat colonoscopy in 10 years. Stool studies showed C Diff colonization without infection Patient advised to continue with probiotics. 01/02/24 Patient continue with abdominal bloating, acid reflex with esophagus irritation, and between diarrhea and constipation. Complains of bloating and esophageal discomfort. Intermittent dysphagia associated with intake of rice and meats Patient denies significant improvement in dysphagia after past EGD and dilation. She complains of diarrhea alternating with constipation - recent C diff toxin was negative. Takes tramadol and ibuprofen infrequently for severe pain. Pt advised a trail of FODMAP diet for 6 weeks 02/13/24 EGD and bx results reviewed Pt denies any change in abdominal pain. Taking Sucralfate Abd pain was better while she was in the hospital and not taking the metformin Thinks abd pain may be related to metformin Has been taking Metformin for the past ? 4 yrs (since dxed with DM) Woke up with burning pain last night. Pain is associated with intake of hard and spicy foods (meats, rice, greasy foods) 03/05/24 Abd pain improved. Pt advised to continue Pantorpazole 40 mg twice daily for a month and then decrease to once a day alternating with twica a day for another month 07/09/24 EGD and MRCP results reviewed I am doing so so Constipation x 2 weeks. Day she had the MRI she had hard stools followed by diarrhea. Had 6-7 BMs yesterday and had an accident in bed last night. Had the urge to have a BM and unable to have a BM when she goes to the bathroom Schedule MRI with contrast for FU of liver lesion 06/03/25 Advised to take Probiotics (pt stated she took in the past and symptoms improved). Follow-up in 6 months Medications: New Lactobacillus rhamnosus GG (Culturelle) 1 cap PO DAILY 90 caps 1RF 90 days R14.0 - Abdominal distension (gaseous) Refilled blood sugar diagnostic (FreeStyle Precision Steffen Strips) As directed once daily 50 ea 6RF E11.9 - Type 2 diabetes mellitus without complications, Z79.4 - correction (current) use of insulin Coding Level of Care Code Est Pt Level 4 (97379) Diagnoses Colon cancer screening Z12.11 Abdominal bloating R14.0 Dysphagia, pharyngoesophageal phase R13.14 Abdominal pain R10.9 Gastroesophageal reflux disease with esophagitis without hemorrhage K21.00 Esophagitis bleeding: without hemorrhage Esophagitis presence: with esophagitis Esophageal spasm K22.4 Abnormal magnetic resonance cholangiopancreatography (MRCP) R93.3 Time Spent (min) 20
[2025-06-03 12:35] VITALS: BP 132/64; PULSE 66; BMI 31.3
--- OUTSIDE RECORDS SUMMARY | 2025-06-03 12:38 | XMS_ITS | Clinical Summary ---
Author Organization [employer] Address [address] [place] [address] Care Team Providers Care Cad Manager Name Role Phone Unavailable Primary Care Provider [...] 10/25/2014 Nephrolithiasis 10/25/2014 Overview (12/17/2024): Followed by [facility] Hyperlipidemia 08/26/2014 Major depression 08/26/2014 Overview (12/17/2024): Follows at [facility] Panic attacks 08/26/2014 Encounters Date Type Department Care Team Description 03/10/2025 10:45 AM EDT Office Visit [facility] [address] [place] [address] Kwesi Bragg DMD from Last 3 Months [...] Relevant to Health Maintenance Insurance DENTAL - [facility]
--- OUTSIDE RECORDS SUMMARY | 2025-06-03 12:38 | XMS_ITS | Clinical Summary ---
Author [facility] Address [address] [place] [address] Care Team Providers Care Pier Hand Name Role Phone Wilbert Moreau DO Primary Care Provider [phone] Surgical History Surgery Date Site/Laterality Comments TONSILLECTOMY PROCEDURE: HISTORICAL TONSILLECTOMY HYSTERECTOMY PROCEDURE: HISTORICAL HYSTERECTOMY OOPHORECTOMY Left PROCEDURE: HISTORICAL OOPHORECTOMY BREAST REDUCTION PROCEDURE: MT BREAST REDUCTION KIDNEY STONE SURGERY PROCEDURE: MT NEPHROLITHOTOMY REMOVAL CALCULUS OTHER SURGICAL HISTORY PROCEDURE: MT HEMORRHOIDECTOMY INT & XTRNL 2/> COLUMN/DIDIER SECTION PROCEDURE: HISTORICAL DELIVERY LAPAROSCOPIC GASTRIC BANDING PROCEDURE: LAP ADJUSTABLE GASTRIC BAND; COMMENT: and then removed on 11/25/15 BELT ABDOMINOPLASTY PROCEDURE: HISTORICAL TUMMY TUCK OTHER SURGICAL HISTORY 01/12/14 PROCEDURE: MAMMOGRAM OTHER SURGICAL HISTORY PROCEDURE: MT HEMORRHOIDECTOMY INTERNAL RUBBER BAND LIGATIONS Medical History Medical History Date Comments Nephrolithiasis 10/25/2014 DX:Nephrolithias is; COMMENT: Followed by [facility] Back pain, chronic 10/25/2014 DX:Back [...] Documents on File Type Date Recorded 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
== END 2025-06-03 13:17 | disposition home or self-care (01) ==
LOC: HO.HGI 12:29
PROVIDERS: PCP Physician Assistant; Visit Provider Internal Medicine Gastroenterology
DX: R14.0 Abdominal distension (gaseous) (principal); R13.14 Dysphagia, pharyngoesophageal phase; R10.9 Unspecified abdominal pain; K21.00 Gastro-esophageal reflux disease with esophagitis, without bleeding; K22.4 Dyskinesia of esophagus; R93.3 Abnormal findings on diagnostic imaging of other parts of digestive tract
CPT/HCPCS: 99214

== ENCOUNTER → 2025-06-03 12:28 | Outpatient (BNVA) | payer OTHER, SELFPAY | PROVIDERS: PCP Physician Assistant; Visit Provider Internal Medicine Gastroenterology | DX: K21.9 Gastro-esophageal reflux disease without esophagitis (principal); E11.9 Type 2 diabetes mellitus without complications; R14.0 Abdominal distension (gaseous); R13.14 Dysphagia, pharyngoesophageal phase; R10.9 Unspecified abdominal pain; R93.3 Abnormal findings on diagnostic imaging of other parts of digestive tract; K21.00 Gastro-esophageal reflux disease with esophagitis, without bleeding; K22.4 Dyskinesia of esophagus; Z79.4 Long term (current) use of insulin; F33.1 Major depressive disorder, recurrent, moderate; E78.5 Hyperlipidemia, unspecified; I10 Essential (primary) hypertension; M79.7 Fibromyalgia | CPT/HCPCS: 83036; 99212 ==

== ENCOUNTER 2025-06-03 13:25 | Outpatient (AMB) | payer OTHER, SELFPAY ==
--- OUTSIDE RECORDS SUMMARY | 2025-06-03 13:29 | XMS_ITS | Clinical Summary ---
Author Organization [facility] Address [address] [place] [address] Care Team Providers Care Detective Chief Name Role Phone Wilbert Moreau Primary Care [...] times daily. 40 Tab 0 03/15/2016 Active Esopus-3 Fatty Acids (FISH OIL) 1000 MG Cap Take 1,000 mg by mouth 3 times daily. 90 Cap 2 03/15/2016 Active Active Problems Problem Noted Date Asthma 01/16/2015 Nephrolithiasis 10/25/2014 Overview: Followed by [facility] Abnormal CT scan 10/25/2014 Overview: abd CT 2013 /spleen prior granulomatous disease Back pain, chronic 10/25/2014 Abnormal chest x-ray 10/25/2014 Overview: Stable left hilar lymph nodes Hyperlipidemia 08/26/2014 Major depression 08/26/2014 Overview: Follows at [facility] Panic attacks 08/26/2014 Thyroid nodule Immunizations [...] 74 03/15/2016 2:46 PM EDT Temperature 36.6 C (97.9 F) 03/15/2016 2:46 PM EDT Respiratory Rate 14 03/15/2016 2:46 PM EDT [...] - Td or Tdap) 10/29/2024 10/29/2014 INFLUENZA (#1) 2025 HEPATITIS C SCREENING Completed 10/29/2014 Care Teams Detective Chief Relationship Specialty Start Date End Date Wilbert Moreau PCP - General Family Practice 04/19/16
--- NOTE | 2025-06-03 13:31 | MHC.PC.OV ---
Vital Signs 06/03/25 13:32 Height 5 ft 6 in Weight 194 lb BMI 31.3 BP 126/82 Blood Pressure Location Lt brachial Position Sitting Intake Visit Reasons: follow up DMII Intake Note: Patient here for a follow up on DM Block Paver Required: No Accompanied by: Self / Same As Patient Allergies seafood Allergy (Unknown, Verified 06/03/25 13:46) Unknown dulaglutide (From [facility]) Adverse Reaction (Intermediate, Verified 06/03/25 13:46) Diarrhea metformin Adverse Reaction (Intermediate, Verified 06/03/25 13:46) GAstric upset lisinopril Adverse Reaction (Unknown, Verified 06/03/25 13:46) cough Medication List - Last Reconciled 06/03/25 by Malena Dunlap MD acetaminophen ER (Tylenol Arthritis Pain) 650 mg PO Q12H 30 days albuterol sulfate 90 mcg/actuation 2 puffs inhalation QID 30 days albuterol sulfate 2.5 mg (3 mL) inhalation Q6H PRN 30 days atorvastatin 40 mg PO BEDTIME blood sugar diagnostic (FreeStyle Precision Steffen Strips) As directed once daily blood-glucose meter (FreeStyle Precision Steffen Meter) As directed cetirizine 10 mg PO DAILY PRN 90 days cholecalciferol (vitamin D3) 25 mcg PO DAILY 90 days citalopram 20 mg PO DAILY@0900 clonazepam 2 mg PO BEDTIME clonazepam 1 mg PO DAILY@0900 fenofibrate nanocrystallized 48 mg PO DAILY fluticasone propion-salmeterol 115-21 mcg/actuation (Advair HFA) 2 puffs inhalation Q12H 30 days gabapentin 600 mg PO BID 30 days Lactobacillus rhamnosus GG (Culturelle) 1 cap PO DAILY 90 days pantoprazole 40 mg PO BID 90 days pioglitazone 15 mg PO DAILY 30 days Held on 02/10/25. Instructions: Doctor's Order polyethylene glycol 3350 (Miralax) 17 grams PO DAILY 30 days sucralfate 1 g PO QID telmisartan (Micardis) 20 mg PO DAILY@0900 tirzepatide (Mounjaro) 7.5 mg (0.5 mL) subcut QWEEK 4 weeks tramadol 50 mg PO Q8H PRN zolpidem 10 mg PO BEDTIME Tobacco use date assessed: 11/09/24 Dental Screening Dental Screen Date: 11/09/24 HPI HPI Comments History of Present Illness Details The patient is a 60-year-old female presenting for management of hypertension, type 2 diabetes mellitus, and dyslipidemia. The patient has a history of hypertension, which is currently well-controlled with medication as her blood pressure readings are within normal limits. She reports being on multiple medications, including an inhaler and atorvastatin, which has improved her LDL cholesterol levels from 160 mg/dL to 109 mg/dL, although it remains above the target of 70 mg/dL due to her diabetes. The patient's type 2 diabetes mellitus is managed with an A1c of 6.9%, indicating good control. She experiences side effects from several medications, including diarrhea from Trulicity, stomach upset from Metformin, and a cough from Lisinopril. She complains of diffuse joint pain secondary to fibromyalgia and is compliant with gabapentin 600 mg twice a day. I will increase gabapentin to 3 times a day. It does not seem to cause sleepiness on her. Moderate major depression with anxiety are follow by Psychiatry. The patient is allergic to seafood and has been prescribed various medications, including cetirizine, vitamin D, citalopram, clonazepam, fenofibrate, gabapentin, pantoprazole, and Actos. She reports taking gabapentin 600 mg twice daily, which may contribute to her sleepiness, although she is unsure due to the number of medications she is on. [facility] Medical History (Updated 06/03/25 @ 14:15 by Malena Dunlpa MD) Calcified granuloma of lung History of panic attacks Asthma Anal fissure Anal pain Pulmonary nodules Hx of renal calculi Flu-like symptoms Spondylosis of lumbar spine Fibromyalgia Dyslipidemia Obesity, Class I, BMI 30-34.9 Nephrolithiasis Recurrent Clostridioides difficile infection Hx of thyroid nodule Back pain Arthritis Depression Anxiety Type 2 diabetes mellitus HLD (hyperlipidemia) GERD (gastroesophageal reflux disease) HTN (hypertension) Surgical History History of esophagogastroduodenoscopy (EGD) Hx of cosmetic surgery Hx of tonsillectomy Hx of section Hx of lithotripsy Hx of endoscopy Hx of colonoscopy (~11/2016) S/P anal fissurectomy H/O hemorrhoidectomy Hx laparoscopic cholecystectomy S/P left oophorectomy H/O partial thyroidectomy (~2016) History of removal of laparoscopic gastric banding device (~2015) History of abdominoplasty History of colonoscopy History of laparoscopic adjustable gastric banding (~2010) History of bilateral breast reduction surgery (~2008) History of hysterectomy Family History Father Diabetes Hypertension Depression Mother Lung cancer Diabetes Mental health disorder Brother HIV (human immunodeficiency virus infection) Depression Diabetes Sister Hypertension Diabetes Mental health disorder Daughter Mental health disorder Son Mental health disorder Social History Household Members: Children Housing: House Do you presently have visiting nurse or other home services: Yes Alcohol intake: current Alcohol intake frequency: a few times a month Patient Tobacco Use Status: Former Tobacco user Tobacco use type: Cigarette e-Cigarette/Vaping Use: Never Used Second Hand Smoke Exposure: No Substance Use Type: Marijuana Advance Directives Date on File: 02/06/24 service: No Current occupational status: disabled Cognitive needs: No Hearing needs: No Vision needs: Yes Questionnaire PHQ-9 Over the last 2 weeks, how often have you been bothered by any of the following problems? 2. Feeling down, depressed, or hopeless: more than half the days 4. Feeling tired or having little energy: several days Source: Developed by Drs. Vazquez Holden, Jaye Ryan, Carl Gaona and colleagues, with an educational kalpana from [employer]. Thrive Questionnaire Date Thrive assessed: 11/09/24 I am a: Patient What is your living situation today?: I have a steady place to live Within the past 12 months, did the food you bought not last and you didn't have the money to get more?: Never true Within the past 12 months, did you worry whether your food would run out before you got money to buy more?: Never true Do you have trouble paying for medicines?: No Do you have trouble getting transportation to medical appointments?: No Do you have trouble paying your heating and electricity bill?: No Do you have trouble taking care of your child, family member or friend?: Yes Do you have trouble with day-to-day activities such as bathing, preparing meals, shopping, managing finances, etc.?: Yes Are you currently unemployed and looking for a job?: No Are you interested in more education?: No Please select the resources that you would like help with: None Currently or been in a relationship where the following occur: No concerns reported THRIVE Score: 0 EMLI-7 AMB Questionnaire EMIL-7 Date EMIL - 7 assessed: 11/09/24 Source: Developed by Drs. Vazquez Holden, Jaye Ryan, Carl Gaona and colleagues, with an educational kalpana from [employer]. Review of Systems Const All systems reviewed & are unremarkable except as noted in HPI and below Card Denies chest pain at rest, Denies chest pain with activity, Denies edema, Denies irregular heart rhythm, Denies claudication, Denies dyspnea, Denies dyspnea on exertion, Denies orthopnea, Denies paroxysmal nocturnal dyspnea and Denies slow heart rate Resp Denies cough, Denies dyspnea and Denies dyspnea on exertion GI Denies abdominal pain, Denies change in bowel habits, Denies excessive flatus, Denies nausea and Denies vomiting Denies urinary incontinence, Denies urinary hesitancy and Denies urinary urgency Musc Denies atrophy, Denies deformity and Denies limited range of motion Physical exam (Primary Care) Vital Signs: Last Vital Signs BP 126/82 06/03/25 13:32 BMI result Body Mass Index 31.3 BMI Assessment/Plan discussion: High BMI High, discussed plan: lifestyle, weight reduction, dietary and physical activity Tobacco/Smoking Status: Tobacco use Status Tobacco use date assessed 11/09/24 06/03/25 13:40 Patient Tobacco Use Status Former Tobacco user 06/03/25 13:40 Tobacco use type Cigarette 06/03/25 13:40 e-Cigarette/Vaping Use Never Used 06/03/25 13:40 Thrive Assessment: Date of Thrive Assessment Date Thrive assessed 11/09/24 06/03/25 13:40 Currently or been in a relationship where the following occur: No concerns reported Resp Effort & Inspection: normal respiratory effort Auscultation: clear to auscultation bilaterally Cardio Jugular venous distension: no JVD Rate: regular rate Rhythm: regular rhythm Heart sounds: S1 normal heart sound present and S2 normal heart sound present Extrem General: Yes full ROM Results AMB Hemoglobin A1c AMB Hemoglobin A1c 6.9 % Last Edit by GUY Koch on 08/07/25 13:44 Results Reviewed Results Reviewed: Laboratory Last Values Hgb A1c (Clinic) 6.9 % (4.0-6.0) H 06/03/25 13:31 Coding Level of Care Code Est Pt Level 4 (44380) Complex EM visit Add On G2211 Diagnoses MDD (major depressive disorder), recurrent episode, moderate F33.1 Essential hypertension I10 Hypertension type: essential hypertension Dyslipidemia E78.5 Type 2 diabetes mellitus without complication, with long-term current use of insulin E11.9; Z79.4 Diabetes mellitus intermediate accountant insulin use: with intermediate accountant use Diabetes mellitus complication status: without complication Gastroesophageal reflux disease with esophagitis without hemorrhage K21.00 Esophagitis presence: with esophagitis Esophagitis bleeding: without hemorrhage Fibromyalgia M79.7 Time Spent (min) 23 Assessment & Plan Assessment & Plan (1) MDD (major depressive disorder), recurrent episode, moderate: Code(s): F33.1 - Major depressive disorder, recurrent, moderate Category: Medical (2) HTN (hypertension): Code(s): I10 - Essential (primary) hypertension Category: Medical Qualifiers: Hypertension type: essential hypertension Qualified Code(s): I10 - Essential (primary) hypertension (3) Dyslipidemia: Code(s): E78.5 - Hyperlipidemia, unspecified Category: Medical (4) Type 2 diabetes mellitus: Code(s): E11.9 - Type 2 diabetes mellitus without complications Category: Medical Qualifiers: Diabetes mellitus intermediate accountant insulin use: with fci use Diabetes mellitus complication status: without complication Qualified Code(s): E11.9 - Type 2 diabetes mellitus without complications; Z79.4 - penitentiary (current) use of insulin (5) GERD (gastroesophageal reflux disease): Code(s): K21.9 - Gastro-esophageal reflux disease without esophagitis Category: Medical Qualifiers: Esophagitis presence: with esophagitis Esophagitis bleeding: without hemorrhage Qualified Code(s): K21.00 - Gastro-esophageal reflux disease with esophagitis, without bleeding (6) Fibromyalgia: Code(s): M79.7 - Fibromyalgia Category: Medical Plan The plan includes continuing the current antihypertensive regimen as the patient's blood pressure is well-controlled. For dyslipidemia, the patient is advised to continue atorvastatin, as it has significantly reduced her LDL cholesterol levels, although further reduction is needed to reach the target of 70 mg/dL due to her diabetes. The management of type 2 diabetes mellitus will continue with the current regimen, as the patient's A1c is at 6.9%, indicating good control. The patient should monitor for any adverse effects from her medications, particularly those previously noted, and report any concerns. The patient is encouraged to maintain her current medication regimen, including gabapentin, which may be adjusted to three times a day if necessary to manage symptoms effectively. Patient was informed and verbally consented to the use of an ambient scribe for clinic note documentation during this visit. Orders: Orders AMB Hemoglobin A1c Today E11.9 - Type 2 diabetes mellitus without complications, Z79.4 - [facility]it[facility]iary (current) use of insulin Medications: Changed From gabapentin 600 mg PO BID 30 days 60 tabs 2RF M54.2 - Cervicalgia To gabapentin 600 mg PO Q8H 90 tabs 2RF 30 days M54.2 - Cervicalgia
[2025-06-03 13:32] VITALS: BP 126/82; BMI 31.3
== END 2025-06-03 13:57 | disposition home or self-care (01) ==
LOC: HO.HMCH 13:26
PROVIDERS: PCP Physician Assistant; Visit Provider Internal Medicine
DX: F33.1 Major depressive disorder, recurrent, moderate (principal); I10 Essential (primary) hypertension; E78.5 Hyperlipidemia, unspecified; E11.9 Type 2 diabetes mellitus without complications; Z79.4 Long term (current) use of insulin; K21.00 Gastro-esophageal reflux disease with esophagitis, without bleeding; M79.7 Fibromyalgia

== ENCOUNTER 2025-06-15 11:21 | Emergency (ER) | payer OTHER, SELFPAY ==
--- NOTE | ~2025-06-15 | XR_ITS ---
EXAMINATION: XR CHEST 2 VIEWS HISTORY: cough COMPARISON: Comparison is made with the prior examination dated 05/08/2024. FINDINGS: PA and lateral views of the chest are submitted. The lungs are expanded and clear. There is no pleural effusion, pneumothorax, or pulmonary vascular congestion. The heart is normal in size. The bones are intact. XR/XR chest 2V IMPRESSION: No acute cardiopulmonary abnormality. Electronically signed by: Vazquez Parada MD 06/15/2025 12:18 PM EDT
[2025-06-15 11:29] VITALS: BP 124/56; BP 124/57; PULSE 88; PULSE 90; RESP 18; TEMP 36.7; O2SAT 99; BMI 31.5
[2025-06-15 11:36] VITALS: BP 124/56; PULSE 88; RESP 18; TEMP 36.7; O2SAT 99
--- NOTE | 2025-06-15 11:48 | PC.NURSE ---
Pt comes to ED today vis EMS from home with c/o flank pain and chest tightness starting this AM. Pt reports pain is 10/10 and radiates to from of abd. She reports productive cough of thick, yellow phlegm. Pt denies any burning with urination. A&Ox3, VSS Skin is warm and dry Breaths and speech are unlabored. 20g placed to RAC via EMS. Pt resting quietly on stretcher at this time. Awaiting ED provider/new orders.
--- NOTE | 2025-06-15 12:05 | ED.GENADULT ---
HPI - General Adult General Chief complaint: Abdominal Pain Stated complaint: FLANK PAIN,CHEST TIGHT,NON PROD COUGH Time Seen by Provider: 06/15/25 11:41 Source: patient, RN notes reviewed and old records reviewed Mode of arrival: EMS Limitations: no limitations History of Present Illness ED Provider: Royal HPI narrative: This is a 60-year-old female with a past medical history of fibromyalgia, diabetes, nephrolithiasis, asthma, and hyperlipidemia presenting to the emergency department with a chief concern of chest tightness and wheezing starting last night, with significant lower back pain radiating to her flanks, beginning this morning, and waking her up from sleep. The patient endorses a cough with intermittent sputum production as well as wheezing and chest tightness beginning the day prior. She denies shortness of breath, nausea, vomiting, or diarrhea. Denies any urinary symptoms, including pain with urination, burning with urination, urinary frequency Endorses chills, but denies any fevers at home. She has not taken any medication for the pain at home, but she did take her at-home nebulizer treatment for the wheezing yesterday. Related Data Home Medications ?Medication ?Instructions ?Recorded ?Confirmed citalopram 20 mg tablet 20 mg PO DAILY@0900 08/19/20 06/03/25 clonazepam 1 mg tablet 1 mg PO DAILY@0900 Anxiety 12/13/20 06/03/25 zolpidem 10 mg tablet 10 mg PO BEDTIME 04/04/22 06/03/25 clonazepam 2 mg tablet 2 mg PO BEDTIME 01/30/24 06/03/25 Previous Rx's ?Medication ?Instructions ?Recorded blood-glucose meter (FreeStyle #1 ea 11/13/23 Precision Steffen Meter) acetaminophen 650 mg 650 mg PO Q12H 30 days #60 tabs 05/22/24 tablet,extended release (Tylenol Arthritis Pain) cetirizine 10 mg tablet 10 mg PO DAILY PRN allergy 07/16/24 symptoms 90 days #90 tabs fenofibrate nanocrystallized 48 mg 48 mg PO DAILY #90 tabs 07/16/24 tablet pantoprazole 40 mg tablet,delayed 40 mg PO BID 90 days #180 tabs 07/16/24 release pioglitazone 15 mg tablet 15 mg PO DAILY 30 days #30 tabs 09/18/24 Held on 02/10/25. Instructions: Doctor's Order albuterol sulfate 90 mcg/actuation 2 puff inhalation QID 30 days #8.5 11/04/24 aerosol inhaler grams fluticasone propionate 115 2 puff inhalation Q12H 30 days #12 11/04/24 mcg-salmeterol 21 mcg/actuation grams HFA inhaler (Advair HFA) albuterol sulfate 2.5 mg/3 mL 2.5 mg (3 mL) inhalation Q6H PRN 11/09/24 (0.083 %) solution for nebulization shortness of breath or wheezing 30 days #180 mL polyethylene glycol 3350 17 gram 17 g PO DAILY Constipation 30 days 11/09/24 oral powder packet (Miralax) #30 ea tramadol 50 mg tablet 50 mg PO Q8H PRN pain (scale score 03/15/25 4-6) #7 tabs telmisartan 20 mg tablet (Micardis) 20 mg PO DAILY@0900 #90 tabs 04/09/25 atorvastatin 40 mg tablet 40 mg PO BEDTIME #90 tabs 05/16/25 tirzepatide 7.5 mg/0.5 mL 7.5 mg (0.5 mL) subcut QWEEK 4 05/26/25 subcutaneous pen injector weeks #2 mL (Bella) Lactobacillus rhamnosus GG 10 1 cap PO DAILY 90 days #90 caps 06/03/25 billion cell capsule (Culturelle) blood sugar diagnostic (FreeStyle #50 ea 06/03/25 Precision Steffen Strips) gabapentin 600 mg tablet 600 mg PO Q8H 30 days #90 tabs 06/03/25 sucralfate 1 gram tablet 1 g PO QID #112 tabs 06/09/25 cholecalciferol (vitamin D3) 25 25 mcg PO DAILY 90 days #90 caps 06/11/25 mcg (1,000 unit) capsule Allergies Allergy/AdvReac Type Severity Reaction Status Date / Time seafood Allergy Unknown Unknown Verified 06/15/25 11:33 dulaglutide (From [facility]) AdvReac Intermediate Diarrhea Verified 06/15/25 11:33 metformin AdvReac Intermediate GAstric Verified 06/15/25 11:33 upset lisinopril AdvReac Unknown cough Verified 06/15/25 11:33 Review of Systems Constitutional: Constitutional: Reports chills, Denies fatigue, Denies fever(s) and Denies headache(s) ENT: Denies headache(s) Cardiovascular: Cardiovascular: Reports chest pain and Denies dyspnea Respiratory: Respiratory: Reports cough, Denies dyspnea and Reports wheezing Gastrointestinal: Gastrointestinal: Denies abdominal pain, Denies diarrhea, Denies nausea and Denies vomiting Genitourinary: Genitourinary: Denies difficulty voiding, Denies dysuria and Denies urinary urgency Musculoskeletal: Musculoskeletal: Reports back pain Integumentary/Breasts: Skin/Breast: Denies rash Neurologic: Denies headache(s) and Denies focal weakness Endocrine: Endocrine: Denies fatigue Allergic/Immunologic: Allergic/Immunologic: Reports wheezing PMFSH Past Medical History Medical History Calcified granuloma of lung History of panic attacks Asthma Anal fissure Anal pain Pulmonary nodules Hx of renal calculi Flu-like symptoms Spondylosis of lumbar spine Fibromyalgia Dyslipidemia Obesity, Class I, BMI 30-34.9 Nephrolithiasis Recurrent Clostridioides difficile infection Hx of thyroid nodule Back pain Arthritis Depression Anxiety Type 2 diabetes mellitus HLD (hyperlipidemia) GERD (gastroesophageal reflux disease) HTN (hypertension) Surgical History History of esophagogastroduodenoscopy (EGD) Hx of cosmetic surgery Hx of tonsillectomy Hx of section Hx of lithotripsy Hx of endoscopy Hx of colonoscopy (~11/2016) S/P anal fissurectomy H/O hemorrhoidectomy Hx laparoscopic cholecystectomy S/P left oophorectomy H/O partial thyroidectomy (~2016) History of removal of laparoscopic gastric banding device (~2015) History of abdominoplasty History of colonoscopy History of laparoscopic adjustable gastric banding (~2010) History of bilateral breast reduction surgery (~2008) History of hysterectomy Family History Family History Father Diabetes Hypertension Depression Mother Lung cancer Diabetes Mental health disorder Brother HIV (human immunodeficiency virus infection) Depression Diabetes Sister Hypertension Diabetes Mental health disorder Daughter Mental health disorder Son Mental health disorder Social History Social History Household Members: Children Housing: House Do you presently have visiting nurse or other home services: Yes Alcohol intake: current Alcohol intake frequency: holidays/special occasions only Patient Tobacco Use Status: Former Tobacco user Tobacco use type: Cigarette Smoked in Last 30 Days: No e-Cigarette/Vaping Use: Never Used Second Hand Smoke Exposure: No Use of substances other than those prescribed or required for medical reasons: Yes Substance Use Type: Marijuana Substance Use Type Other:: Gummies Substance Use Frequency: Occasionally Advance Directives: Yes Advance Directives on File: Yes Advance Directives Date on File: 02/06/24 Do you have a plan to hurt others: No Plan Patient : No service: No Current occupational status: disabled Cognitive needs: No Hearing needs: No Vision needs: Yes Physical Exam ED Vital Signs: Vital Signs - 24 hr 06/15/25 11:29 06/15/25 11:36 06/15/25 13:36 Temperature 98.1 F 98.1 F 100.2 F Pulse Rate 88 88 96 Respiratory Rate 18 18 12 Blood Pressure 124/56 L 124/56 L 96/52 L Pulse Oximetry 99 99 97 Oxygen Delivery Method Room Air Room Air Room Air BMI result Body Mass Index 31.5 Const General: alert Nutritional Appearance: well nourished Orientation/consciousness: patient oriented x3 HENMT Head: Yes normocephalic and Yes atraumatic Neck Neck: Yes full ROM Resp Effort & Inspection: normal respiratory effort and Actively coughing Auscultation: clear to auscultation bilaterally, no crackles, no rales, no rhonchi and no wheezes Cardio Rate: regular rate Rhythm: regular rhythm Heart sounds: S1 normal heart sound present, S2 normal heart sound present, no click, no gallops, no murmurs and no rubs Neuro General: patient oriented x3 Cranial nerves: Yes CN's II-XII intact bilaterally and Yes Bilaterally intact EOM present Cognition (Neuro): normal cognition Extrem Other: Moving all extremities well without any obvious deformities Course Reevaluation(s) Reevaluation #1: The patient did spike a low-grade temperature to 100.2. We will treat with IV fluids, IV acetaminophen. This is likely due to a COVID-19 diagnosis Time: 13:45 Medications Administered Discontinued Medications Generic Name Dose Route Start Last Admin Trade Name Freq PRN Reason Stop Dose Admin Ketorolac Tromethamine 30 mg 06/15/25 12:00 08/19/25 12:04 Ketorolac Tromethamine 30 Mg/Ml Vial IVPUSH 06/15/25 12:01 30 mg ONCE ONE Administration Medical Decision Making Medical Decision Making [facility] Narrative: This is a 60-year-old female with a past medical history of asthma, hyperlipidemia, fibromyalgia, nephrolithiasis, and diabetes presenting to the emergency department with a 2 day history of cough with sputum production, wheezing, chest tightness, as well as a 1 day history of low back pain radiating to bilateral flanks. In the hospital stretcher, she is visibly uncomfortable and unable to find a comfortable position to lie in due to her pain. On exam her lungs are clear to auscultation, no wheezing, crackles, or rhonchi, and her heart sounds are normal. It is unclear if the back pain as well as upper respiratory symptoms are related at this time. Due to her history of kidney stones, the patient's urine he will be evaluated for any blood. 12:20 p.m.: The plan for this patient is to control her pain starting with 30 mg IV ketorolac, and obtain basic labs such as a CBC, CMP, urinalysis, and a chest x-ray to evaluate for acute pulmonary abnormalities. Denies any risk factors for PE/DVT Differential Diagnosis Differential Diagnoses: The differential diagnosis associated with the presentation includes Community-acquired pneumonia Acute bronchitis Upper respiratory tract infection COVID-19 Influenza Nephrolithiasis Renal colic Lab Data [facility] Lab Attestation statement: I reviewed the patient's lab results. Mild leukopenia to 4.5, no significant anemia. Normal platelet count. No significant electrolyte abnormalities warranting intervention. The patient is positive for COVID-19 virus 06/15/25 12:30 06/15/25 12:29 Labs: Lab Results 06/15/25 06/15/25 06/15/25 Range/Units 12:29 12:30 12:41 WBC 4.5 L (4.8-10.8) X10*3/uL RBC 4.68 (4.20-5.50) X10*6/uL Hgb 13.6 (12.0-16.0) g/dl Hct 38.9 (37.0-47.0) % MCV 83.1 (80.0-98.0) fL MCH 29.1 (27.0-33.0) pg MCHC 35.0 (31.0-35.0) g/dl RDW 12.4 (11.0-16.0) % Plt Count 199 (160-400) X10*3/uL MPV 9.0 L (9.4-12.3) fL Immature Gran % (Auto) 0.4 (0.0-0.4) % Neut % (Auto) 75.5 H (45-73) % Lymph % (Auto) 12.6 L (20-40) % Will % (Auto) 9.0 (2-11) % Eos % (Auto) 1.8 (0-4) % Baso % (Auto) 0.7 (0-2) % Lymph # (Auto) 0.6 L (1.2-4.9) X10*3/uL Will # (Auto) 0.4 (0.1-1.2) X10*3/uL Eos # (Auto) 0.1 (0.0-0.4) X10*3/uL Baso # (Auto) 0.0 (0.0-0.2) X10*3/uL Abs Immat Gran (auto) 0.02 (0.00-0.03) X10*3/uL Absolute Neuts (auto) 3.4 (2.0-8.3) x10*3/uL Absolute Nucleated RBC 0.000 (0.0-0.012) X10*3/uL Nucleated RBC % (auto) 0.0 (0.0-0.2) /100WBC Sodium 138 (135-145) mmol/L Potassium 4.3 (3.3-5.1) mmol/L Chloride 107 (96-108) mmol/L Carbon Dioxide 19 L (22-29) mmol/L Anion Gap 16 (12-20) BUN 11 (9-16) mg/dL Creatinine 0.69 (0.5-1.4) mg/dL Estim Creat Clear Calc 98.3 Estimated GFR > 60 Random Glucose 103 (60-115) mg/dL Calcium 9.5 D (8.4-10.2) mg/dL Total Bilirubin 0.8 (0.0-1.0) mg/dL AST 25 (5-31) U/L ALT 29 (0-31) U/L Alkaline Phosphatase 67 (39-117) U/L Total Protein 7.2 (6.5-8.0) g/dL Albumin 4.5 (3.5-5.0) g/dL Urine Color Yellow Urine Appearance Clear Urine pH >= 9.0 (5.0-9.0) Ur Specific Riley 1.015 (1.005-1.025) Urine Protein Negative (Neg-Trace) mg/dL Urine Glucose (UA) Negative (Negative) mg/dL Urine Ketones Negative (Negative) mg/dL Urine Blood Negative (Negative) Urine Nitrite Negative (Negative) Ur Leukocyte Esterase Negative (Negative) Urine RBC 0-2 (0-2) /HPF Urine WBC 0-5 (0-5) /HPF Ur Squamous Epith Cells 0-2 (0-2) /HPF Urine Bacteria None Seen (None Seen) Hyaline Casts 0-2 (0-2) /LPF Influenza Type A (PCR) NEGATIVE (Negative) Influenza Type B (PCR) NEGATIVE (Negative) RSV RNA Qual (PCR) NEGATIVE (Negative) SARS-CoV-2 RNA (RT-PCR) POSITIVE A (Negative) Discharge Plan Discharge Clinical Impression: COVID-19 Patient Disposition: Home, Self-Care Instructions: COVID-19 (Coronavirus Disease 2019) (ED) Additional Instructions: You tested positive for COVID-19. Use ibuprofen and Tylenol as needed for fevers and body aches. Hydrate well. Follow-up with your primary doctor, return for new or worsening symptoms Prescriptions: No Action (DME) blood-glucose meter [FreeStyle Precision Steffen Meter] Misc See Rx Instructions .Route Qty: 1 0RF Rx Instructions: As directed pantoprazole 40 mg tablet,delayed release (DR/EC) 40 mg PO BID 90 Days Qty: 180 1RF pioglitazone 15 mg tablet 15 mg PO DAILY 30 Days Qty: 30 1RF telmisartan [Micardis] 20 mg tablet 20 mg PO DAILY@0900 Qty: 90 1RF atorvastatin 40 mg tablet 40 mg PO BEDTIME Qty: 90 2RF Mounjaro 7.5 mg/0.5 mL pen injector 7.5 mg subcut QWEEK 28 Days Qty: 2 3RF sucralfate 1 gram tablet 1 g PO QID Qty: 112 3RF cholecalciferol (vitamin D3) 25 mcg (1,000 unit) capsule 25 mcg PO DAILY 90 Days Qty: 90 0RF tramadol 50 mg tablet 50 mg PO Q8H PRN (Reason: pain (scale score 4-6)) Qty: 7 0RF clonazepam 2 mg tablet 2 mg PO BEDTIME acetaminophen [Tylenol Arthritis Pain] 650 mg tablet extended release 650 mg PO Q12H 30 Days Qty: 60 3RF clonazepam 1 mg tablet 1 mg PO DAILY@0900 Patient Comments: 1 tab in the morning and 2 tablets at bedtime zolpidem 10 mg tablet 10 mg PO BEDTIME citalopram 20 mg tablet 20 mg PO DAILY@0900 cetirizine 10 mg tablet 10 mg PO DAILY PRN (Reason: allergy symptoms) 90 Days Qty: 90 2RF fenofibrate nanocrystallized 48 mg tablet 48 mg PO DAILY Qty: 90 2RF fluticasone propion-salmeterol [Advair HFA] 115-21 mcg/actuation HFA aerosol inhaler 2 puff inhalation Q12H 30 Days Qty: 12 11RF albuterol sulfate 90 mcg/actuation HFA aerosol inhaler 2 puff inhalation QID 30 Days Qty: 8.5 11RF (DME) FreeStyle Precision Steffen Strips Strip See Rx Instructions .ROUTE .MEDSUPPLY Qty: 50 6RF Rx Instructions: As directed once daily Culturelle 10 billion cell capsule 1 cap PO DAILY 90 Days Qty: 90 1RF gabapentin 600 mg tablet 600 mg PO Q8H 30 Days Qty: 90 2RF albuterol sulfate 2.5 mg /3 mL (0.083 %) solution for nebulization 2.5 mg inhalation Q6H PRN (Reason: shortness of breath or wheezing) 30 Days Qty: 180 2RF polyethylene glycol 3350 [Miralax] 17 gram powder in packet 17 g PO DAILY 30 Days Qty: 30 0RF Rx Instructions: Makes 17 g packet in to 8 oz of water and drink daily Print Language: Indonesian
[2025-06-15 12:34] LABS: MANUAL DIFF FLAG NO
[2025-06-15 12:38] LABS: Hematocrit 38.9 % (37.0-47.0); Hemoglobin 13.6 g/dl (12.0-16.0); Imm Gran Abs Auto 0.02 X10*3/uL (0.00-0.03); Imm Gran Pct Auto 0.4 % (0.0-0.4); Lymphocytes Absolute Auto 0.6 X10*3/uL (1.2-4.9); Mean Corpuscular HGB Conc 35.0 g/dl (31.0-35.0); Mean Corpuscular Hemoglobin 29.1 pg (27.0-33.0); Mean Corpuscular Volume 83.1 fL (80.0-98.0); NRBC Abs Auto 0.000 X10*3/uL (0.0-0.012); NRBC Pct Auto 0.0 /100WBC (0.0-0.2); Platelet Count 199 X10*3/uL (160-400); Red Blood Count 4.68 X10*6/uL (4.20-5.50); White Blood Count 4.5 X10*3/uL (4.8-10.8)
[2025-06-15 12:53] LABS: Appearance Urine Clear; Glucose Urine UA Negative (Negative); PH >= 9.0 (5.0-9.0); Specific Gravity - Urine 1.015 (1.005-1.025)
[2025-06-15 12:59] LABS: Alanine Aminotransferase 29 U/L (0-31); Albumin Level 4.5 g/dL (3.5-5.0); Alkaline Phosphatase 67 U/L (39-117); Anion Gap 16 (12-20); Aspartate Amino Transferase 25 U/L (5-31); Blood Urea Nitrogen 11 mg/dL (9-16); Calcium 9.5 mg/dL (8.4-10.2); Carbon Dioxide 19 mmol/L (22-29); Chloride 107 mmol/L (96-108); Creatinine Clr Calc Pharmacy 98.3; Estimated Glomerular Filt Rate > 60; Potassium 4.3 mmol/L (3.3-5.1); Sodium 138 mmol/L (135-145); Total Protein 7.2 g/dL (6.5-8.0)
[2025-06-15 13:25] LABS: Resp Syncy Virus RNA Qual PCR NEGATIVE (Negative); SARS COV2 PCR INHOUSE POSITIVE (Negative)
[2025-06-15 13:36] VITALS: BP 96/52; PULSE 96; RESP 12; TEMP 37.9; O2SAT 97
[2025-06-15 14:51] VITALS: BP 106/55; PULSE 88; RESP 16; TEMP 37; O2SAT 96
[2025-06-15 15:38] VITALS: TEMP 37
[2025-06-15 15:40] VITALS: BP 106/55; PULSE 88; RESP 16; TEMP 37; O2SAT 96
== END 2025-06-15 15:44 | disposition home or self-care (01) ==
PROVIDERS: Physician Assistant; Emergency Provider Emergency Medicine; PCP Physician Assistant
DX: U07.1 COVID-19 (principal); R05.9 Cough, unspecified; R07.89 Other chest pain; R06.2 Wheezing; M54.50 Low back pain, unspecified
CPT/HCPCS: 36415; 71046; 80053; 81001; 85025; 87637; 96361; 96374; 96375; 99284; 99285; J0131; J1885

== ENCOUNTER → 2025-06-15 11:53 | Outpatient (BNV) | payer OTHER, SELFPAY | PROVIDERS: Emergency Provider Emergency Medicine; PCP Physician Assistant; Visit Provider Radiology Diagnostic Radiology | DX: R07.9 Chest pain, unspecified (principal) | CPT/HCPCS: 71046 ==

== ENCOUNTER 2025-06-29 13:34 | Outpatient (AMB) | payer OTHER, SELFPAY ==
--- NOTE | 2025-06-29 13:51 | A.OFFPC_ITS ---
Vital Signs 06/29/25 13:53 Height 5 ft 6 in Weight 190 lb 6 oz BMI 30.7 BP 120/66 Blood Pressure Location Lt brachial Position Sitting Pulse 82 Pulse Source Pulse Oximeter Temp 97.3 F Temp Source Temporal Artery Scan Pulse Oximetry (%) 96 Oxygen Delivery Method Room Air Intake Visit Reasons: [facility] 06/14 FLANK PAIN,CHEST TIGHT,NON PROD COUGH Intake Note: Patient is here to follow-up after a visit the emergency department at 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: Not Required per policy Accompanied by: Self / Same As Patient Allergies seafood Allergy (Unknown, Verified 06/29/25 14:06) Unknown dulaglutide (From [facility]) Adverse Reaction (Intermediate, Verified 06/29/25 14:06) Diarrhea metformin Adverse Reaction (Intermediate, Verified 06/29/25 14:06) GAstric upset lisinopril Adverse Reaction (Unknown, Verified 06/29/25 14:06) cough Medication List - Last Reconciled 06/29/25 by Silvino Andujar PA-C acetaminophen ER (Tylenol Arthritis Pain) 650 mg PO Q12H 30 days albuterol sulfate 90 mcg/actuation 2 puffs inhalation QID 30 days albuterol sulfate 2.5 mg (3 mL) inhalation Q6H PRN 30 days atorvastatin 40 mg PO BEDTIME blood sugar diagnostic (FreeStyle Precision Steffen Strips) As directed once daily blood-glucose meter (FreeStyle Precision Steffen Meter) As directed cetirizine 10 mg PO DAILY PRN 90 days cholecalciferol (vitamin D3) 25 mcg PO DAILY 90 days citalopram 20 mg PO DAILY@0900 clonazepam 2 mg PO BEDTIME clonazepam 1 mg PO DAILY@0900 fenofibrate nanocrystallized 48 mg PO DAILY fluticasone propion-salmeterol 115-21 mcg/actuation (Advair HFA) 2 puffs inhalation Q12H 30 days gabapentin 600 mg PO Q8H 30 days Lactobacillus rhamnosus GG (Culturelle) 1 cap PO DAILY 90 days pantoprazole 40 mg PO BID 90 days pioglitazone 15 mg PO DAILY 30 days Held on 02/10/25. Instructions: Doctor's Order polyethylene glycol 3350 (Miralax) 17 grams PO DAILY 30 days sucralfate 1 g PO QID telmisartan (Micardis) 20 mg PO DAILY@0900 tirzepatide (Mounjaro) 7.5 mg (0.5 mL) subcut QWEEK 4 weeks tramadol 50 mg PO Q8H PRN zolpidem 10 mg PO BEDTIME Tobacco use date assessed: 06/29/25 Dental Screening Dental Screen Date: 11/09/[address] [facility] 18 FLANK PAIN,CHEST TIGHT,NON PROD COUGH HPI Details The patient is a 60-year-old female presenting for a follow-up after an emergency room visit due to a cough and associated pain. The patient reports experiencing a persistent cough that was severe enough to warrant an emergency room visit a couple of weeks ago. Workup with a your occluding labs did indicate positive COVID, x-ray was without evidence of pneumonia. She describes the pain as strong, affecting her ability to move, and notes it is localized in her shoulder and feet. Her gabapentin has been recently increased to 600 t.i.d. Additionally, she reports knee pain that prompted a visit to urgent care due to worsening symptoms and increased fatigue. The patient also mentions feeling congested and more tired than usual, which has been concerning for her. She mentioned she found some old antibiotics amoxicillin 875 and started taking an now is feeling a bit better. She would like her own script for amoxicillin. [facility] Medical History Calcified granuloma of lung History of panic attacks Asthma Anal fissure Anal pain Pulmonary nodules Hx of renal calculi Flu-like symptoms Spondylosis of lumbar spine Fibromyalgia Dyslipidemia Obesity, Class I, BMI 30-34.9 Nephrolithiasis Recurrent Clostridioides difficile infection Hx of thyroid nodule Back pain Arthritis Depression Anxiety Type 2 diabetes mellitus HLD (hyperlipidemia) GERD (gastroesophageal reflux disease) HTN (hypertension) Surgical History History of esophagogastroduodenoscopy (EGD) Hx of cosmetic surgery Hx of tonsillectomy Hx of section Hx of lithotripsy Hx of endoscopy Hx of colonoscopy (~11/2016) S/P anal fissurectomy H/O hemorrhoidectomy Hx laparoscopic cholecystectomy S/P left oophorectomy H/O partial thyroidectomy (~2016) History of removal of laparoscopic gastric banding device (~2015) History of abdominoplasty History of colonoscopy History of laparoscopic adjustable gastric banding (~2010) History of bilateral breast reduction surgery (~2008) History of hysterectomy Family History Father Diabetes Hypertension Depression Mother Lung cancer Diabetes Mental health disorder Brother HIV (human immunodeficiency virus infection) Depression Diabetes Sister Hypertension Diabetes Mental health disorder Daughter Mental health disorder Son Mental health disorder Social History Household Members: Children Housing: House Do you presently have visiting nurse or other home services: Yes Alcohol intake: current Alcohol intake frequency: holidays/special occasions only Patient Tobacco Use Status: Former Tobacco user Tobacco use type: Cigarette e-Cigarette/Vaping Use: Never Used Second Hand Smoke Exposure: Yes Substance Use Type: Marijuana Advance Directives Date on File: 02/06/24 service: No Current occupational status: disabled Cognitive needs: No Hearing needs: No Vision needs: Yes Questionnaire Thrive Questionnaire Date Thrive assessed: 11/09/24 I am a: Patient What is your living situation today?: I have a steady place to live Within the past 12 months, did the food you bought not last and you didn't have the money to get more?: Never true Within the past 12 months, did you worry whether your food would run out before you got money to buy more?: Never true Do you have trouble paying for medicines?: No Do you have trouble getting transportation to medical appointments?: No Do you have trouble paying your heating and electricity bill?: No Do you have trouble taking care of your child, family member or friend?: Yes Do you have trouble with day-to-day activities such as bathing, preparing meals, shopping, managing finances, etc.?: Yes Are you currently unemployed and looking for a job?: No Are you interested in more education?: No Please select the resources that you would like help with: None Currently or been in a relationship where the following occur: No concerns reported THRIVE Score: 0 EMIL-7 AMB Questionnaire EMIL-7 Date EMIL - 7 assessed: 11/09/24 Source: Developed by Drs. Vazquez Holden, Jaye Ryan, Carl Gaona and colleagues, with an educational kalpana from [employer]. Review of Systems Const Reports body aches, Reports fatigue, Denies headache(s) and Reports malaise Eyes Denies loss of vision ENT Denies vertigo, Denies dizziness, Denies headache(s) and Denies sore throat Card Denies chest pain, Denies leg edema and Denies lightheadedness Resp Denies cough, Denies hemoptysis and Denies wheezing GI Denies abdominal pain, Denies melena, Denies constipation, Denies diarrhea and Denies vomiting Denies urinary frequency, Denies dysuria and Denies urinary urgency Musc Reports back pain, Reports arthralgias, Denies joint swelling, Denies numbness and Denies tingling Neuro Denies Abnormal speech present, Denies behavioral changes, Denies vertigo, Denies dizziness, Denies headache(s), Denies loss of vision, Denies memory loss, Denies numbness and Denies tingling Psych Denies anxiety, Denies behavioral changes, Denies depression, Denies memory loss and Denies panic attacks Endo Reports fatigue Swapnil/Lymph Denies easy bleeding and Denies easy bruising Aller/Immun Denies wheezing Physical exam (Primary Care) Vital Signs: Last Vital Signs Temp 97.3 F 06/29/25 13:53 Pulse 82 06/29/25 13:53 BP 120/66 06/29/25 13:53 Pulse Ox 96 06/29/25 13:53 Oxygen Delivery Method Room Air 06/29/25 13:53 BMI result Body Mass Index 30.7 Tobacco/Smoking Status: Tobacco use Status Tobacco use date assessed 06/29/25 06/29/25 14:01 Patient Tobacco Use Status Former Tobacco user 06/29/25 14:01 Tobacco use type Cigarette 06/29/25 14:01 e-Cigarette/Vaping Use Never Used 06/29/25 14:01 Thrive Assessment: Date of Thrive Assessment Date Thrive assessed 11/09/24 06/29/25 14:01 Currently or been in a relationship where the following occur: No concerns reported Const General: healthy appearing, no acute distress, alert and awake Nutritional Appearance: well nourished Orientation/consciousness: oriented to person, oriented to place and oriented to time HENMT Ears: TM's normal bilaterally General nose exam: Normal nasal mucous membranes and turbinates present Eyes Conjunctivae: conjunctivae normal Sclerae: sclerae normal Pupils: Equal, round and reactive pupils present Neck Neck: Yes no lymphadenopathy and Yes no JVD Thyroid: Thyroid normal Carotids: no bruits Resp Effort & Inspection: normal respiratory effort and not tachypneic Auscultation: no crackles, no rales, no rhonchi and no wheezes Cardio Rate: regular rate Rhythm: regular rhythm Heart sounds: no murmurs and normal S1 and S2 GI Palpation (GI): Soft to palpation, nontender, no hepatomegaly and no splenomegaly Auscultation: normal bowel sounds Skin General skin exam: no rashes or lesions noted and dry skin Neuro General: oriented to person, oriented to place and oriented to time Cranial nerves: Yes Equal, round and reactive pupils present Speech: No Abnormal speech present Gait exam (Neuro): Normal gait present Motor exam (neuro): no tremor noted Extrem Right upper extremity: full ROM Left upper extremity: full ROM Right lower extremity: full ROM; no edema Left lower extremity: full ROM; no edema Psych Mental Status: mental status grossly normal Speech and movement: Normal speech and movement present Affect: normal affect Attitude: cooperative Thought process: Normal thought process present Coding Level of Care Code Est Pt Level 4 (54427) Diagnoses Acute bronchitis due to other specified organisms J20.8 Bronchitis organism: other organism Fibromyalgia M79.7 Assessment & Plan Assessment & Plan (1) Acute bronchitis: Code(s): J20.9 - Acute bronchitis, unspecified Category: Medical Qualifiers: Bronchitis organism: other organism Qualified Code(s): J20.8 - Acute bronchitis due to other specified organisms Plan: As per HPI patient recently had COVID bronchitis. She was treated with ipratropium updraft treatments and prednisone taper. She did start antibiotics left over from previous infection and started this medication which she reports helped her feel better. She is requesting more antibiotics as she feels she is clinically improving from her bronchitis. (2) Fibromyalgia: Code(s): M79.7 - Fibromyalgia Category: Medical Plan: She reports increased pain particular in her lower back since having COVID infection. She does have a history of fibromyalgia to which he takes gabapentin which was recently increased to 600 t.i.d.. Did discuss perhaps transitioning to Lyrica to see if this works on reducing her pain a bit better. We had also discussed nonpharmacological techniques to help reduce pain and fibromyalgia. She also does have a script for tramadol 50 mg to use on a p.r.n. basis for pain scales of 9-10. We did discuss the habit-forming nature of the medication and she agrees and understands the only use the tramadol on a as needed basis Medications: New amoxicillin 875 mg PO BID 14 tabs 0RF 7 days J20.8 - Acute bronchitis due to other specified organisms Changed From tramadol 50 mg PO Q8H PRN 7 tabs 0RF pain (scale score 4-6) K08.89 - Other specified disorders of teeth and supporting structures To tramadol 50 mg PO Q6-8H PRN 28 tabs 0RF pain (scale score 4-6) 7 days K08.89 - Other specified disorders of teeth and supporting structures Refilled pantoprazole 40 mg PO BID 180 tabs 1RF 90 days K21.00 - Gastro-esophageal reflux disease with esophagitis, without bleeding, R10.13 - Epigastric pain fenofibrate nanocrystallized 48 mg PO DAILY 90 tabs 2RF E78.5 - Hyperlipidemia, unspecified acetaminophen ER (Tylenol Arthritis Pain) 650 mg PO Q12H 60 tabs 3RF 30 days M19.90 - Unspecified osteoarthritis, unspecified site, M47.816 - Spondylosis without myelopathy or radiculopathy, lumbar region
[2025-06-29 13:53] VITALS: BP 120/66; PULSE 82; TEMP 36.3; O2SAT 96; BMI 30.7
--- OUTSIDE RECORDS SUMMARY | 2025-06-29 14:51 | XMS_ITS | Encounter Summary ---
Author Organization [facility] [employer] [facility] Address [address] [place] [address] Care Team Providers Care Septic Tank Setter Name Role Phone Unavailable Primary Care Provider [...]
--- OUTSIDE RECORDS SUMMARY | 2025-06-29 14:51 | XMS_ITS | Clinical Summary ---
Author Organization [facility] it Address [address] [place] [address] Care Team Providers Care Steno Pool Supervisor Name Role Phone Wilbert Moreau DO Primary Care Provider [phone] Surgical History Surgery Date Site/Laterality Comments TONSILLECTOMY PROCEDURE: HISTORICAL TONSILLECTOMY HYSTERECTOMY PROCEDURE: HISTORICAL HYSTERECTOMY OOPHORECTOMY Left PROCEDURE: HISTORICAL OOPHORECTOMY BREAST REDUCTION PROCEDURE: UT BREAST REDUCTION KIDNEY STONE SURGERY PROCEDURE: UT NEPHROLITHOTOMY REMOVAL CALCULUS OTHER SURGICAL HISTORY PROCEDURE: UT HEMORRHOIDECTOMY INT & XTRNL 2/> COLUMN/DIDIER SECTION PROCEDURE: HISTORICAL DELIVERY LAPAROSCOPIC GASTRIC BANDING PROCEDURE: LAP ADJUSTABLE GASTRIC BAND; COMMENT: and then removed on 11/25/15 BELT ABDOMINOPLASTY PROCEDURE: HISTORICAL TUMMY TUCK OTHER SURGICAL HISTORY 01/12/14 PROCEDURE: MAMMOGRAM OTHER SURGICAL HISTORY PROCEDURE: UT HEMORRHOIDECTOMY INTERNAL RUBBER BAND LIGATIONS Medical History Medical History Date Comments Nephrolithiasis 10/25/2014 DX:Nephrolithias is; COMMENT: Followed by [facility] Back pain, chronic 10/25/2014 DX:Back [...] of 3 - 19+ 3-dose series) 1985 Cervical Cancer Screening: P ap Smear 1987 Pneumococcal Vaccine: 50+ Ye ars (1 of 1 - PCV) 2016 Zoster Vaccines (1 of 2) 2016 Depression Screening 10/28/2024 DTaP,Tdap,and Td Vaccines (2 - Td or Tdap) 10/29/2024 10/29/2014 COVID-19 Vaccine (1 - 2023-2 5 season) 2025 Influenza Vaccine (#1) 2025 RSV Immunization Adult [...] Documents on File Type Date Recorded 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
--- OUTSIDE RECORDS SUMMARY | 2025-06-29 14:51 | XMS_ITS | Clinical Summary ---
Author Organization [employer] Address [address] [place] [address] Care Team Providers Care Insurance Professional Name Role Phone Unavailable Primary Care Provider [...] 10/25/2014 Nephrolithiasis 10/25/2014 Overview (12/17/2024): Followed by [facility] Hyperlipidemia 08/26/2014 Major depression 08/26/2014 Overview (12/17/2024): Follows at [facility] Panic attacks 08/26/2014 Social History Tobacco Use Types Packs/Day Years [...] Procedure Name Priority Date/Time Associated Diagnosis Comments PROPHYLAXIS - ADULT Routine 01/13/2019 1 2:00 AM EDT PERIODIC ORAL EVALUATION - ESTABLISHED PATIENT Routine 01/13/2019 12:00 AM EDT INTRAORAL - COMPLETE SERIES OF RADIOGRAPHIC IMAGES Routine 05/12/2018 12:00 AM EDT from Last 3 Months or Most Recently Relevant to Health Maintenance Insurance [facility]
== END 2025-06-29 14:28 | disposition home or self-care (01) ==
LOC: HO.HMCH 13:34
PROVIDERS: PCP Physician Assistant; Visit Provider Physician Assistant
DX: J20.8 Acute bronchitis due to other specified organisms (principal); M79.7 Fibromyalgia

== ENCOUNTER → 2025-06-29 13:34 | Outpatient (BNVA) | payer OTHER, SELFPAY | PROVIDERS: PCP Physician Assistant; Visit Provider Physician Assistant | DX: M79.7 Fibromyalgia (principal); J20.8 Acute bronchitis due to other specified organisms; K08.89 Other specified disorders of teeth and supporting structures; K21.00 Gastro-esophageal reflux disease with esophagitis, without bleeding; R10.13 Epigastric pain; E78.5 Hyperlipidemia, unspecified; M19.90 Unspecified osteoarthritis, unspecified site; M47.816 Spondylosis without myelopathy or radiculopathy, lumbar region | CPT/HCPCS: 99212 ==